=== PATIENT | male | born 1945 | race Caucasian/White ===

== ENCOUNTER 2018-05-03 06:57 | Emergency (ER) | payer MEDICARE, OTHER, SELFPAY ==
[2018-05-03 06:58] VITALS: BP 182/92; PULSE 74; RESP 15; TEMP 37.1; O2SAT 94; BMI 39.9
[2018-05-03 07:26] VITALS: O2SAT 95
--- NOTE | 2018-05-03 07:33 | RAD_ITS ---
STUDY: X-RAY CHEST REASON FOR EXAM: Male, 73 years old. Cough with wheezing and shortness of breath TECHNIQUE: PA and lateral views of the chest. COMPARISON: Prior comparison studies are not available for review at this time. FINDINGS: Lungs are mildly hyperexpanded with coarsened interstitial lung markings but no airspace disease. There is blunting of bilateral costophrenic angles. Normal size heart. Sternal wires and mediastinal surgical clips compatible with prior CABG. Normal mediastinum and polo. Normal visualized pulmonary arteries. There is atherosclerotic calcification of the aortic arch with tortuosity. There is demineralization of the osseous structures. Normal visualized ribs, clavicles, and shoulders. There is no demonstrated abnormality of the visualized soft tissue structures of the upper abdomen. RAD/Chest PA and Lateral IMPRESSION: 1. No airspace consolidation. 2. Trace bilateral pleural effusions versus chronic pleural fibrosis. 3. CABG. Electronically Signed: Levar Keller MD at 7:57 EST , Service support ,
--- NOTE | 2018-05-03 08:03 | ED.DCSUM_ITS ---
- ER Visit Summary Date of Service: 05/03/18 Chief Complaint: Cough and cold symptoms History of Present Illness: The patient is a 73 M who is had progressive cough for the past 6 days. No fever or chills. No nausea or vomiting. He is bringing up yellow sputum and is getting muscle soreness from his cough. Past history significant for CHF, hypertension, high cholesterol, Parkinson's. Physical Examination: Vital signs significant for blood pressure of 182/92, otherwise unremarkable. Pulse ox is 94% on room air. Patient sitting upright in bed no acute distress. Head neck examination reveals TMs to be clear. Moist mucous membranes noted. Heart is regular rate and rhythm. Lungs sounds clear. Abdomen is soft nontender. Test Results: Two-view chest x-ray read by radiology as a trace effusion with no airspace consolidation. On my review there is haziness along the left heart border with concern for early infiltrate. Emergency Department Course and Treatment: Test results discussed with patient and at bedside. He will be treated with Zithromax along with Tessalon Perles to control his cough. Treatment Plan: [] Disposition: Discharge Impression: Bronchitis This note was generated with [employer] dictation software. It may contain incorrect words, spelling, and punctuation that were not noted in review of the chart prior to signing ED Disposition - Plan for ED Patient: Chief Complaint: Cough Referrals: Kobi Adair MD [Primary Care Provider] -
--- NOTE | 2018-05-03 08:03 | ED.DEP ---
ED Disposition - Plan for ED Patient: Disposition: Home or Assisted Living Chief Complaint: Cough Instructions: Acute Bronchitis Prescriptions: Azithromycin [Zithromax] 250 mg PO DAILY #4 tablet Benzonatate [Tessalon Perle] 200 mg PO TID PRN PRN #20 capsule PRN Reason: Cough Referrals: Kobi Adair MD [Primary Care Provider] - 1 Week
[2018-05-03] MEDS: Azithromycin 250 MG Tablet 500 MG PO (08:18)
== END 2018-05-03 08:20 | disposition home or self-care (01) ==
PROVIDERS: Emergency Provider Emergency Medicine; Family Provider Family Medicine; PCP Family Medicine
DX: J40 Bronchitis, not specified as acute or chronic (principal); I11.0 Hypertensive heart disease with heart failure; I50.9 Heart failure, unspecified; G20 Parkinson's disease; E03.9 Hypothyroidism, unspecified; E78.00 Pure hypercholesterolemia, unspecified; M54.9 Dorsalgia, unspecified; K21.9 Gastro-esophageal reflux disease without esophagitis; F32.9 Major depressive disorder, single episode, unspecified; Z79.84 Long term (current) use of oral hypoglycemic drugs; Z79.02 Long term (current) use of antithrombotics/antiplatelets; Z79.82 Long term (current) use of aspirin; Z79.899 Other long term (current) drug therapy; Z87.891 Personal history of nicotine dependence
CPT/HCPCS: 71046; 99283

== ENCOUNTER 2019-03-27 11:21 | Emergency (ER) | payer MEDICARE, OTHER, SELFPAY ==
[2019-03-27 11:23] VITALS: BP 149/73; PULSE 64; RESP 18; TEMP 36.5; O2SAT 96; BMI 41.3
--- NOTE | 2019-03-27 12:12 | RAD_ITS ---
STUDY: X-RAY - RIGHT KNEE REASON FOR EXAM: Male, 74 years old. PAIN S/P INJURY; -- PATIENT STATES UNABLE TO BEAR ANY WEIGHT TECHNIQUE: 4 view(s) of the knee. COMPARISON: None. FINDINGS: Normal visualized distal femur. Normal visualized proximal tibia and fibula. Normal proximal tibiofibular articulation. Normal medial femorotibial compartment. Normal lateral femorotibial compartment. Normal patellofemoral articulation. There is a soft tissue prominence in the suprapatellar region suggesting a small volume joint effusion. There are surgical clips of the medial soft tissues. RAD/Knee 4 or More Views IMPRESSION: Small joint effusion without demonstrated fracture. Electronically Signed: Levar Keller MD (Brooks) at 12:38 EST , Service support ,
--- NOTE | 2019-03-27 12:49 | ED.VISSUMM ---
- ER Visit Summary Date of Service: 03/27/19 Chief Complaint: Right knee pain History of Present Illness: The patient is a 74 M who presents with right knee pain that began yesterday. Patient states his knee gave out and he fell. Patient states his pain is worse with movement and with weightbearing. Patient admits to some tingling in his right thigh but denies any paresthesias or weakness distally. Patient describes his pain as sharp. Patient denies any head injury or loss of consciousness with the fall. Physical Examination: Vital signs are stable. Patient is afebrile. Patient in no acute distress. Musculoskeletal exam reveals tenderness over the medial joint line of the right knee. There is no effusion. There is no bony crepitance or step-off. Range of motion was limited in all motions of the right knee secondary to pain. Extensor mechanism is intact. Strength is 5/5 bilaterally upper and lower extremities. There are no sensory deficits noted. Pedal pulses are equal bilaterally. Test Results: X-rays of the right knee were obtained. There is a small joint effusion without fracture. These were interpreted by the radiologist and reviewed by myself. Emergency Department Course and Treatment: Patient was advised of his x-ray findings. Patient was instructed to ice and elevate the right knee. Patient was given a knee immobilizer. Patient was instructed to follow-up with his primary care physician in 5 to 7 days. Patient understood and was agreeable with the plan. All questions were answered. Disposition: Discharge home Impression: Right knee pain This note was generated with airpim dictation software. It may contain incorrect words, spelling, and punctuation that were not noted in review of the chart prior to signing ED Disposition - Plan for ED Patient: Disposition: Home or Assisted Living Diagnosis: Right knee pain Instructions: KNEE PAIN, Uncertain Cause Referrals: Kobi Adair MD [Primary Care Provider] - 5-7 Days
== END 2019-03-27 13:38 | disposition home or self-care (01) ==
PROVIDERS: Emergency Provider Emergency Medicine; Family Provider Family Medicine; PCP Family Medicine
DX: M25.561 Pain in right knee (principal); M25.461 Effusion, right knee; R20.2 Paresthesia of skin; Z79.84 Long term (current) use of oral hypoglycemic drugs; Z79.02 Long term (current) use of antithrombotics/antiplatelets; Z79.82 Long term (current) use of aspirin; Z79.899 Other long term (current) drug therapy
CPT/HCPCS: 73564; 99284

== ENCOUNTER 2021-02-18 19:13 | Inpatient (IN) | payer OTHER, SELFPAY ==
[2021-02-18] VITALS (11 sets, daily range): BP systolic 108–125; BP diastolic 66–76; PULSE 120–123; RESP 18–33; TEMP 35.6–36.6; O2SAT 92–97; BMI 39.1; BMI 37.7
--- NOTE | 2021-02-18 19:24 | RAD_ITS ---
STUDY: X-RAY CHEST REASON FOR EXAM: Male, 76 years old. chest pain TECHNIQUE: AP COMPARISON: None. FINDINGS: Sternal wires and mediastinal surgical clips compatible with prior CABG. EKG leads project over the chest. Left more than right patchy groundglass and interstitial opacities are new since the prior study. There is no demonstrated pleural abnormality. There is mild cardiac enlargement. Normal mediastinum and polo. Mild vascular congestion. There is atherosclerotic calcification of the aortic arch with tortuosity. No acute bony process. There is no demonstrated abnormality of the visualized soft tissue structures of the upper abdomen. RAD/Chest 1 View (Portable) IMPRESSION: Left more than right interstitial and groundglass opacities with vascular congestion suggesting pulmonary edema although atypical/viral pneumonia could have a similar appearance. Electronically Signed: Levar Keller MD (Brooks) at 20:04 EST , Service support ,
--- NOTE | 2021-02-18 19:24 | EKG12_ITS ---
Test Reason : SOB Blood Pressure : / mmHG Vent. Rate : 121 BPM Atrial Rate : 121 BPM P-R Int : 132 ms QRS Dur : 088 ms QT Int : 326 ms P-R-T Axes : -24 -08 067 degrees QTc Int : 462 ms Sinus tachycardia Inferior infarct , age undetermined Abnormal ECG Confirmed by DAVIE ELAM, ESTUARDO ([id number]), development editor AASHISH SILVA ([id number]) on 02/20/2021 11:01:44 AM Referred By: MAXI Confirmed By:ESTUARDO BRODERICK MD
--- NOTE | 2021-02-18 19:26 | ED.VIS.DYS ---
HPI History of Present Illness Chief Complaint: Shortness of Breath Informant: patient and spouse/S.O. Onset/Context/Timing Onset: Days Context: gradual Timing: Continuous Quality: Positive for Dyspnea on exertion Current Severity: Moderate Maximum Severity: Moderate Worsened by: Exertion Relieved by: Nothing Associated Symptoms cough, fever and chills Chest Pain: Positive for None Narrative Narrative: 76-year-old male extensive past medical history of CHF, hypertension, Parkinson's disease, diabetes, prior PR, quadruple bypass with stents on Plavix and history of thyroid cancer. Both he and his are vaccinated for Covid in June of this year. He has been short of breath for at least 10 days progressively worsening in the last several days. [facility] he started him on Levaquin and prednisone the last several days. He was diagnosed with Covid around 7 days ago and has had symptoms for about 10 days. He denies any hemoptysis or leg swelling. PE Risk Factors: Negative for Cancer, OCP + Smoking + > 35, Prior DVT or PE, Recent immobilization, Recent surgery and Recent travel Prior similar symptoms: No Recent Illness/Hospitalization: No PFSH PFSH Medical History (Updated 02/18/21 @ 20:[address] Sathish Smith MD) Allergic rhinitis BPH (benign prostatic hyperplasia) Chronic diastolic heart failure Coronary artery disease Diabetes Essential hypertension Hypertensive heart disease with acute diastolic congestive heart failure Insomnia Mixed hyperlipidemia ANABELL (obstructive sleep apnea) Proteinuria Restless leg syndrome Tubular adenoma of colon Vitamin D deficiency Home Medications aspirin 81 mg PO DAILY 03/10/13 [History Last Taken 05/02/18] atorvastatin 40 mg PO QHS 03/10/13 [History Last Taken 05/02/18] carbidopa-levodopa [Sinemet CR] 1 ea PO QHS 03/10/13 [History Last Taken 05/02/18] clopidogrel 75 mg PO DAILY 03/10/13 [History Last Taken 05/02/18] isosorbide mononitrate 30 mg PO DAILY 03/10/13 [History Last Taken 05/02/18] levothyroxine [Levoxyl] 200 mcg PO DAILY 03/10/13 [History Last Taken 05/02/18] losartan 100 mg PO DAILY 03/10/13 [History Last Taken 05/02/18] metformin 1,000 mg PO BIDCM 03/10/13 [History Last Taken 05/02/18] metoprolol tartrate 50 mg PO DAILY 03/10/13 [History Last Taken 05/02/18] nitroglycerin 0.4 mg SUBLINGUAL Q5M PRN 03/10/13 [History Last Taken 05/02/18] potassium chloride 10 meq PO DAILY 03/10/13 [History Last Taken 05/02/18] sertraline 50 mg PO DAILY 04/14/15 [History Last Taken 05/02/18] sitagliptin [Januvia] 100 mg PO DAILY 04/14/15 [History Last Taken 05/02/18] zolpidem 5 mg PO QHS PRN PRN 04/14/15 [History Last Taken 05/02/18] loratadine [Claritin] 10 mg PO DAILY 07/06/15 [History Last Taken 05/02/18] tamsulosin 0.8 mg PO QHS 07/06/15 [History Last Taken 05/02/18] amlodipine 5 mg PO BID 05/03/18 [History Last Taken 05/02/18] benzonatate 200 mg PO TID PRN PRN #20 capsule 05/03/18 [Rx Last Taken Unknown] famotidine 10 mg PO BID 02/18/21 [History Last Taken Unknown] furosemide 20 mg PO BID 02/18/21 [History Last Taken Unknown] glipizide 10 mg PO BID 02/18/21 [History Last Taken Unknown] insulin glargine 40 unit SUBCUT DAILY 02/18/21 [History Last Taken Unknown] levofloxacin 500 mg PO DAILY 02/18/21 [History Last Taken Unknown] magnesium oxide 420 mg PO DAILY 02/18/21 [History Last Taken Unknown] multivitamin with iron-mineral [Unicomplex-M] 1 tab PO DAILY 02/18/21 [History Last Taken Unknown] prednisone 50 mg PO DAILY 02/18/21 [History Last Taken Unknown] semaglutide [Ozempic] 0.5 mg SUBCUT QWEEK 02/18/21 [History Last Taken Unknown] trospium 20 mg PO BID 02/18/21 [History Last Taken Unknown] Allergy/AdvReac Type Severity Reaction Status Date / Time albuterol AdvReac Mild thrush Verified 02/18/21 19:14 ANESESTHIA Allergy Severe Other Uncoded 02/18/21 19:14 Surgical History (Updated 02/18/21 @ 19:44 by Angeles Howe) Hx of mitral valve repair S/P CABG x 4 S/P coronary artery stent placement Social History Smoking Status: Former smoker ROS ROS ED ROS Narrative Fever, chills, cough, shortness of breath. Nausea. Review of Systems ROS Unobtainable: Denies due to encephalopathy Constitutional Constitutional ED: Reports chills and fever(s) Eyes Eyes: Denies change in vision ENT ENT ED: Denies ear pain or sore throat Cardiovascular Cardiovascular: Reports palpitations and racing heartbeat; Denies chest pain Respiratory/Chest Respiratory/Chest: Reports cough and dyspnea Gastrointestinal Gastrointestinal: Reports nausea; Denies abdominal pain, diarrhea or vomiting Genitourinary Genitourinary ED: Denies dysuria Musculoskeletal Musculoskeletal: Reports myalgias Integumentary Denies rash Neurologic Neurologic: Denies headache(s) Psychiatric Psychiatric: Denies depression Endocrine Endocrinology: Denies polyuria Hematologic/Lymphatic Hematologic/Lymphatic: Denies easy bruising Allergic/Immunologic Allergic/Immunologic ED: Denies urticaria EXAM Physical Exam Narrative Exam Narrative: 76-year-old male vital signs tachycardic at 123 on the monitor. Pulse ox 94% on oxygen nonrebreather mask he was 76% hypoxic at home on room air he is afebrile. Patient appears ill. HEENT exam unremarkable. Neck nontender no JVD. No lymphadenopathy. Lungs clear to auscultation bilaterally. Heart tachycardia rate about 130.. Abdomen soft nontender normal bowel sounds no peritoneal signs. Patient moving all 4 extremities. Calves are nontender without edema. Neurologically is awake and alert with no focal motor deficits. He is answering questions and following commands. Const Vital Signs: 02/18/21 19:15 02/18/21 19:28 02/18/21 19:38 Temperature 97.7 F L Temperature Source Temporal Pulse Rate 123 H 122 H Respiratory Rate 30 H 33 H Respiratory Effort Short of Breath Respiratory Pattern Tachypnea Blood Pressure 109/72 112/70 Blood Pressure Mean 84 84 Pulse Ox 94 95 Oxygen Delivery Method Non-Rebreather Non-Rebreather Non-Rebreather Oxygen Flow Rate (L/min) 15 15 Fraction of Inspired Oxygen (FIO2) 02/18/21 19:40 02/18/21 20:13 02/18/21 20:21 Temperature 97.9 F Temperature Source Oral Pulse Rate 120 H 120 H Respiratory Rate 31 H 32 H Respiratory Effort Respiratory Pattern Blood Pressure 113/66 113/66 Blood Pressure Mean 81 81 Pulse Ox 96 97 95 Oxygen Delivery Method Non-Rebreather Nasal Cannula Nasal Cannula Oxygen Flow Rate (L/min) Fraction of Inspired Oxygen (FIO2) 100 Positive well nourished and well developed; Negative for obese, cachectic or contractures General Appearance ED: well developed; Negative for cachectic, contractures or NAD Nutritional Appearance: Negative for cachectic or obese HEENT Reports moist mucous membranes Negative for atraumatic or trauma Eyes PERRL and EOMs intact bilaterally Neck no lymphadenopathy, supple, no meningeal signs and no JVD General: Negative for tenderness Resp No normal respiratory effort and clear to auscultation bilaterally Resp Narrative: Labored breathing Auscultation: Negative for rales, rhonchi or wheezes Cardio regular rhythm, S1 normal heart sound, S2 normal heart sound and no murmurs; Negative for regular rate Cardio Narrative: Tach rate of 130. GI non-tender, non-distended and no masses Auscultation: normoactive bowel sounds Palpation: soft; Negative for tender, guarding or rebound tenderness present Back/Spine no CVA tenderness and normal to inspection General Back: Negative for CVA tenderness or tenderness Extremity normal to inspection General Extremety ED: Negative for edema or tenderness General Extremity: Negative for edema Neuro oriented x3 Sensorium / Orientation: alert, oriented to person, oriented to place and oriented to time; Negative for orientation impaired, confused, lethargic or stuporous Motor Exam: strength 5/5 throughout Skin no wounds General Skin Exam: Negative for jaundice Lesions: no lesions Rashes: no rashes MDM MDM MDM Narrative Medical decision making narrative: 76-year-old male vaccinated but is Covid positive had had symptoms for last 10 days. [facility] the last several days. Increasing respiratory distress with increasing hypoxia. He was not on home O2. He also is either new onset or has recurrent A. fib RVR. He has substantial cardiac history. Repeat exam patient is resting comfortably and improved on oxygen. Current diagnosis is consistent with CHF. We did do a bladder scan due to his acute kidney injury and it was only 86 so he is not in urinary retention. Patient be treated with IV Lasix. I have already discussed with the patient, his and the hospitalist about admission. Lab Data Attestation: I reviewed the patient's lab results. Lab results narrative: CBC unremarkable white count of 10. Hemoglobin of 14.1. Electrolytes show a gap of 14 BUN of 50 creatinine 2.8 glucose 314. Liver enzymes unremarkable. Troponin 65. His BUN and creatinine are significantly changed but the most recent one we have are from 5 years ago. Labs: Laboratory Results - last 24 hr 02/18/21 02/18/21 02/18/21 18:55 18:55 19:25 WBC 10.5 RBC 4.68 Hgb 14.1 Hct 42.3 MCV 90.4 MCH 30.1 MCHC 33.3 RDW Std Deviation 43.9 RDW Coeff of Luther 13.2 Plt Count 214 MPV 10.3 Immature Gran % (Auto) 1.300 H Neut % (Auto) 90.8 H Lymph % (Auto) 4.1 L Crawford % (Auto) 3.6 Eos % (Auto) 0.0 Baso % (Auto) 0.2 Absolute Neuts (auto) 9.5 H Absolute Lymphs (auto) 0.43 L Nucleated RBC % 0 Differential Comment SCANNED PT 14.3 INR 1.2 D-Dimer Quant (PE/DVT) 1.80 H* Sodium 133 L Potassium 3.9 Chloride 99 Carbon Dioxide 20.0 L Anion Gap 14 BUN 50 H Creatinine 2.80 H Estim Creat Clear Calc 20.25 Est GFR (MDRD) Af Amer 29 L Est GFR (MDRD) Non-Af 24 L BUN/Creatinine Ratio 17.9 Glucose 314 H Calcium 8.9 Total Bilirubin 1.00 AST 50 H ALT 32 Alkaline Phosphatase 99 Troponin I High Sens 65 Total Protein 7.4 Albumin 2.6 L Globulin 4.8 H Albumin/Globulin Ratio 0.5 L Radiography Chest X-Ray - ED: 1 View, Read by ED Physician, Heart, Mediastinum, Bony Structures, No Acute Disease, Chronic Changes and CHF Diagnostic Testing: Clinical Impression(s) from Imaging Studies Chest X-Ray 02/18/21 19:24 IMPRESSION: Left more than right interstitial and groundglass opacities with vascular congestion suggesting pulmonary edema although atypical/viral pneumonia could have a similar appearance. Electronically Signed: Levar Keller MD ([place]) at 20:04 EST , Service support , Single view portable chest x-ray interpreted by myself the radiologist looks more like CHF. No obvious pneumonia and this is not classic for Covid pneumonitis. EKG Initial EKG: Attestation: I personally reviewed and interpreted this EKG as follows: Interpretation: No Acute Injury Pattern and Sinus Tachycardia Comments: Sinus tachycardia rate of 121 no acute signs of PR or ischemia. Unchanged from prior EKG from 5 years ago. Prior EKG tracings: available for review Prior: Unchanged Discharge Plan Triage Chief Complaint: Shortness of Breath ED Provider: Sathish Smith Dx/Rx/DC Orders Clinical Impression: CHF (congestive heart failure), Hypoxia, COVID-19, Acute kidney injury Prescriptions: No Action losartan 50 MG tablet 100 mg PO DAILY RF: 0 atorvastatin 40 MG tablet 40 mg PO QHS RF: 0 carbidopa-levodopa [Sinemet CR] 1 EACH tablet extended release 1 ea PO QHS RF: 0 isosorbide mononitrate 30 MG tablet 30 mg PO DAILY RF: 0 clopidogrel 75 MG tablet 75 mg PO DAILY RF: 0 metformin 1,000 MG tablet 1,000 mg PO BIDCM RF: 0 metoprolol tartrate 50 MG tablet 50 mg PO DAILY RF: 0 nitroglycerin 0.4 MG tablet 0.4 mg sublingual Q5M PRN (Reason: Chest Pain) RF: 0 aspirin 81 MG tablet,chewable 81 mg PO DAILY RF: 0 levothyroxine [Levoxyl] 200 MCG tablet 200 mcg PO DAILY RF: 0 potassium chloride 10 MEQ tablet 10 meq PO DAILY RF: 0 zolpidem 5 MG tablet 5 mg PO QHS PRN PRN (Reason: Insomnia) RF: 0 sertraline 50 MG tablet 50 mg PO DAILY RF: 0 sitagliptin [Januvia] 100 MG tablet 100 mg PO DAILY RF: 0 tamsulosin 0.4 MG capsule 0.8 mg PO QHS RF: 0 loratadine [Allergy Relief (loratadine)] 10 MG tablet 10 mg PO DAILY RF: 0 amlodipine 5 MG tablet 5 mg PO BID RF: 0 benzonatate 100 MG capsule 200 mg PO TID PRN PRN (Reason: Cough) Qty: 20 RF: 0 prednisone 50 mg tablet 50 mg PO DAILY RF: 0 levofloxacin 500 mg tablet 500 mg PO DAILY RF: 0 Ozempic 0.25 mg or 0.5 mg(2 mg/1.5 mL) Pen Injector 0.5 mg SUBCUT QWEEK RF: 0 famotidine 10 mg Tablet 10 mg PO BID RF: 0 glipizide 10 mg Tablet 10 mg PO BID RF: 0 furosemide 20 mg tablet 20 mg PO BID RF: 0 Unicomplex-M Tablet 1 tab PO DAILY RF: 0 trospium 20 mg Tablet 20 mg PO BID RF: 0 insulin glargine 100 unit/mL Cartridge 40 unit SUBCUT DAILY RF: 0 magnesium oxide 400 MG tablet 420 mg PO DAILY RF: 0 Primary Care Provider: Kobi Adair Referrals: Kobi Adair MD [Primary Care Provider] -
[2021-02-18] MEDS: 0.9% Normal Saline 1,000 ML 999 ML IV (19:30)
[2021-02-18] MEDS: dexAMETHasone 10 MG/ML Vial IV (19:48)
[2021-02-18 20:13] LABS: Absolute Lymphocyte Count 0.43 X10^3/uL (0.83-4.51); Absolute Neutrophil Count 9.5 X10^3/uL (2.0-7.7); Basophil# 0.02 X10^3/uL; Basophil% 0.2 % (0-1); Hematocrit 42.3 % (40-54); Hemoglobin 14.1 g/dL (13.0-16.5); Lymphocyte # 0.43 X10^3/ul (0.83-4.51); Lymphocyte % 4.1 % (19-41); Mean Corp Hgb Conc 33.3 g/dL (32-36); Mean Corpuscular Hgb 30.1 pg (27.0-32.0); Mean Corpuscular Volume 90.4 fL (80-94); Mean Platelet Vol. 10.3 fl (6.2-12.0); Monocyte# 0.38 X10^3/uL; Monocyte% 3.6 % (0-10); NRBC Flagged by Analyzer 0 % (0-5); Neutrophil # 9.54 X10^3/uL (2.7-7.7); Neutrophil % 90.8 % (47-70); POSITIVE DIFFERENTIAL YES; Platelet Count 214 K/mm3 (150-450); RBC Distribution Width CV 13.2 % (11.6-14.6); RBC Distribution Width SD 43.9 fl (35.1-43.9); Red Blood Count 4.68 M/mm3 (4.6-6.2); White Blood Count 10.5 K/mm3 (4.4-11.0)
[2021-02-18 20:18] LABS: Differential Indicated SCAN CRITERIA MET
[2021-02-18 20:19] LABS: ALB/GLOB Ratio 0.5 RATIO (0.9-2.4); AST(SGOT) 50 U/L (15-37); Alanine Aminotransfer ALT/SGPT 32 U/L (16-61); Albumin, Serum 2.6 g/dL (3.2-5.0); Alkaline Phosphatase 99 U/L (45-117); Anion Gap 14 (5-15); BUN 50 mg/dL (7-18); BUN/Creat Ratio 17.9 RATIO (10-20); Calcium,Total 8.9 mg/dL (8.5-10.1); Chloride 99 mmol/L (98-107); EST Glomerular Filtration Rate 24 mL/min (>60); Est Glom Filt Rate - Afr Amer 29 mL/min (>60); Estimated Creatinine Clearance 20.25 ml/min; Globulin 4.8 g/dL (2.2-4.2); Glucose 314 mg/dL (74-106); Potassium 3.9 mmol/L (3.5-5.1); Protein, Total 7.4 g/dL (6.4-8.2); Sodium Level 133 mmol/L (136-145); Troponin-I HS 65 pg/mL (3.0-78.0)
[2021-02-18 20:23] LABS: International Normalized Ratio 1.2; Prothrombin Time (Protime)PT. 14.3 SECONDS (11.7-14.9)
[2021-02-18 20:48] LABS: Differential Comment SCANNED
--- NOTE | 2021-02-18 20:54 | HP.PCM.HOS_ITS ---
[facility] - General General Date of Admission: 02/18/21 HPI Narrative KIMBERLY DUGAN, is a 76 M with a significant history of heart failure preserved ejection fraction; restless leg syndrome; BPH who presents to the emergency department with 10-day history of progressively worsening shortness of breath. Patient was diagnosed with Covid about 10 days ago and was started on Levaquin and prednisone 50 mg daily. He reports a productive cough. He reports anorexia. He reports weakness and fatigue. He reports myalgia. Report of fever of temperature of about 100 Fahrenheit the day before presentation. He reports chills. He denies orthopnea proximal nocturnal dyspnea. At baseline he uses CPAP at home. When paramedics got to the patient's house patient's oxygen saturation was in the 70s. Patient was initially placed on nonrebreather mask at the emergency department and later on weaned to 4 L nasal cannula. [facility] Medical History Allergic rhinitis BPH (benign prostatic hyperplasia) Chronic diastolic heart failure Coronary artery disease Diabetes Essential hypertension Hypertensive heart disease with acute diastolic congestive heart failure Insomnia Mixed hyperlipidemia ANABELL (obstructive sleep apnea) Proteinuria Restless leg syndrome Tubular adenoma of colon Vitamin D deficiency Home Medications aspirin 81 mg PO DAILY 03/10/13 [History Last Taken 05/02/18] atorvastatin 40 mg PO QHS 03/10/13 [History Last Taken 05/02/18] carbidopa-levodopa [Sinemet CR] 1 ea PO QHS 03/10/13 [History Last Taken 05/02/18] clopidogrel 75 mg PO DAILY 03/10/13 [History Last Taken 05/02/18] isosorbide mononitrate 30 mg PO DAILY 03/10/13 [History Last Taken 05/02/18] levothyroxine [Levoxyl] 200 mcg PO DAILY 03/10/13 [History Last Taken 05/02/18] losartan 100 mg PO DAILY 03/10/13 [History Last Taken 05/02/18] metoprolol tartrate 50 mg PO DAILY 03/10/13 [History Last Taken 05/02/18] nitroglycerin 0.4 mg SUBLINGUAL Q5M PRN 03/10/13 [History Last Taken 05/02/18] potassium chloride 10 meq PO DAILY 03/10/13 [History Last Taken 05/02/18] sertraline 50 mg PO DAILY 04/14/15 [History Last Taken 05/02/18] sitagliptin [Januvia] 100 mg PO DAILY 04/14/15 [History Last Taken 05/02/18] loratadine [Claritin] 10 mg PO DAILY 07/06/15 [History Last Taken 05/02/18] tamsulosin 0.8 mg PO QHS 07/06/15 [History Last Taken 05/02/18] benzonatate 200 mg PO TID PRN PRN #20 capsule 05/03/18 [Rx Last Taken Unknown] famotidine 10 mg PO BID 02/18/21 [History Last Taken Unknown] furosemide 20 mg PO BID 02/18/21 [History Last Taken Unknown] glipizide 10 mg PO BID 02/18/21 [History Last Taken Unknown] insulin glargine 40 unit SUBCUT DAILY 02/18/21 [History Last Taken Unknown] levofloxacin 500 mg PO DAILY 02/18/21 [History Last Taken Unknown] magnesium oxide 420 mg PO DAILY 02/18/21 [History Last Taken Unknown] multivitamin with iron-mineral [Unicomplex-M] 1 tab PO DAILY 02/18/21 [History Last Taken Unknown] prednisone 50 mg PO DAILY 02/18/21 [History Last Taken Unknown] semaglutide [Ozempic] 0.5 mg SUBCUT QWEEK 02/18/21 [History Last Taken Unknown] trospium 20 mg PO BID 02/18/21 [History Last Taken Unknown] Allergy/AdvReac Type Severity Reaction Status Date / Time albuterol AdvReac Mild thrush Verified 02/18/21 19:14 ANESESTHIA Allergy Severe Other Uncoded 02/18/21 19:14 Family History Other Diabetes Heart disease Surgical History Hx of mitral valve repair S/P CABG x 4 S/P coronary artery stent placement Social History Smoking Status: Former smoker ROS ROS Narrative Constitutional: Reports fever, chills, and anorexia. Denies change in weight Eyes: Denies blurry vision, change in eye color, change in vision, discharge from eye(s), double vision, erythema, eye pain, loss of vision or other HEENT: Denies dysphagia, ear pain, epistaxis, headache(s), hearing loss, nasal congestion, nasal discharge, post nasal drip, sinus pressure, sore throat or other Cardiovascular: Denies chest pain or palpitations. Respiratory/Chest: Reports cough. Reports sputum production. Reports shortness of breath. Denies wheezes. Gastrointestinal: Denies abdominal pain, coffee ground emesis, constipation, diarrhea, dyspepsia, hematemesis, hematochezia, loose stools, melena, nausea, vomiting or other Genitourinary: Denies burning urination, difficulty urinating, dysuria, hematuria, nocturia, urinary frequency, urinary hesitancy, urinary incontinence, urinary urgency or other Musculoskeletal: Reports myalgia. Denies arthralgias, back pain, joint pain, joint stiffness, joint swelling, neck pain or other Neurologic: Denies abnormal gait, abnormal speech, confusion, disequilibrium, dizziness, focal weakness, headache(s), numbness, paresthesias, seizure-like activity, seizures, syncope, tingling, tremor(s) or other Psychiatric: Denies anxiety, depression, homicidal ideation, suicidal ideation or other Endocrinology: Denies change in body appearance, cold intolerance, excessive sweating, heat intolerance, polydipsia, polyuria or other Hematologic/Lymphatic: Denies anemia, easy bleeding, easy bruising, lymphadenopathy or other Integumentary: Denies rashes Allergic/Immunologic: Denies rhinitis, hives, eczema, asthma or other Vital Signs Vital Signs Vital Signs: 02/18/21 19:15 02/18/21 19:28 02/18/21 19:38 Temperature 97.7 F L Temperature Source Temporal Pulse Rate 123 H 122 H Respiratory Rate 30 H 33 H Respiratory Effort Short of Breath Respiratory Pattern Tachypnea Blood Pressure 109/72 112/70 Blood Pressure Mean 84 84 Pulse Ox 94 95 Oxygen Delivery Method Non-Rebreather Non-Rebreather Non-Rebreather Oxygen Flow Rate (L/min) 15 15 Fraction of Inspired Oxygen (FIO2) 02/18/21 19:40 02/18/21 20:13 02/18/21 20:21 Temperature 97.9 F Temperature Source Oral Pulse Rate 120 H 120 H Respiratory Rate 31 H 32 H Respiratory Effort Respiratory Pattern Blood Pressure 113/66 113/66 Blood Pressure Mean 81 81 Pulse Ox 96 97 95 Oxygen Delivery Method Non-Rebreather Nasal Cannula Nasal Cannula Oxygen Flow Rate (L/min) Fraction of Inspired Oxygen (FIO2) 100 Weight Weight: 110 kg Body Mass Index (BMI) 39.1 Physical Exam Narrative Physical exam: General: Well-nourished, well-developed. Head: Normocephalic, atraumatic, no tenderness Eyes: PERRLA, EOMI ENT, no trauma, moist mucous membranes, no rhinorrhea Neck: Nontender, full range of motion, no spinal tenderness, deformities, step- off CVS: Tachycardia. Regular rate and rhythm. S1-S2 present. No murmur, gallop or rub. Respiratory : clear to auscultation bilaterally, chest wall nontender, no wheezing Abdomen: Soft, nontender, nondistended, normal bowel sounds, no masses : Deferred Back: Nontender, no CVA tenderness, no midline spinal tenderness, deformities, step-offs Extremities: Nontender full range of motion, no trauma Skin: Normal color, no trauma, abrasions Neuro: Alert, oriented, cranial nerves II through XII grossly intact. Psychiatry: Normal mood. Normal affect. Not depressed. Not anxious. Results Lab / Micro Data Result Diagrams: 02/18/21 18:55 02/18/21 18:55 Labs: Laboratory Results - last 24 hr 02/18/21 18:55: WBC 10.5, RBC 4.68, Hgb 14.1, Hct 42.3, MCV 90.4, MCH 30.1, MCHC 33.3, RDW Std Deviation 43.9, RDW Coeff of Luther 13.2, Plt Count 214, MPV 10.3, Immature Gran % (Auto) 1.300 H, Neut % (Auto) 90.8 H, Lymph % (Auto) 4.1 L, [place] % (Auto) 3.6, Eos % (Auto) 0.0, Baso % (Auto) 0.2, Absolute Neuts (auto) 9.5 H, Absolute Lymphs (auto) 0.43 L, Nucleated RBC % 0, Differential Comment SCANNED 02/18/21 18:55: Sodium 133 L, Potassium 3.9, Chloride 99, Carbon Dioxide 20.0 L, Anion Gap 14, BUN 50 H, Creatinine 2.80 H, Estim Creat Clear Calc 20.25, Est GFR (MDRD) Af Amer 29 L, Est GFR (MDRD) Non-Af 24 L, BUN/Creatinine Ratio 17.9, Glucose 314 H, Calcium 8.9, Total Bilirubin 1.00, AST 50 H, ALT 32, Alkaline Phosphatase 99, Troponin I High Sens 65, Total Protein 7.4, Albumin 2.6 L, Globulin 4.8 H, Albumin/Globulin Ratio 0.5 L 02/18/21 19:25: PT 14.3, INR 1.2, D-Dimer Quant (PE/DVT) 1.80 H* Radiology Impression Chest X-Ray 02/18/21 19:24 IMPRESSION: Left more than right interstitial and groundglass opacities with vascular congestion suggesting pulmonary edema although atypical/viral pneumonia could have a similar appearance. Electronically Signed: Levar Keller MD (Brooks) at 20:04 EST , Service support , Assessment & Plan Assessment/Plan (1) CHF (congestive heart failure): QUALIFIERS: Heart failure chronicity: acute on chronic Heart failure type: diastolic Qualified Code(s): I50.33 - Acute on chronic diastolic (congestive) heart failure (2) HTN (hypertension): QUALIFIERS: Hypertension type: primary hypertension Qualified Code(s): I10 - Essential (primary) hypertension (3) Obesity: QUALIFIERS: Body mass index: BMI 39.0-39.9 Obesity classification: adult class 2 (BMI 35 - 39.9) Obesity type: due to excess calories Serious obesity comorbidity presence: with serious comorbidity Amando lified Code(s): E66.01 - Morbid (severe) obesity due to excess calories; Z68.39 - Body mass index [BMI] 39.0-39.9, adult (4) COVID-19: PLAN: Acute Exacerbation of heart failure with preserved ejection fraction Place on monitored bed at the progressive care unit Weight on admission to the floor; and then daily Strict I&O's BNP mildly elevated at 159.8. CXR independently reviewed showed bilateral opacity with engorgement of pulmonary vessels and cephalization cephalization EKG independently reviewed confirms sinus tach with rates in the 120s. Emergency department labs reviewed showed potassium of 3.9. Continue home potassium supplementation in the setting of escalating patient's Lasix. Lasix 40 mg IV push given at the emergency department. Lasix 40 mg twice daily ordered while inpatient. Patient reports that he sees cardiology in the [facility]. He does not remember the last time echocardiogram was done. Last echocardiogram on file in hospital system was on 04/28/2013. Echocardiogram at that time showed mild concentric left ventricular hypertrophy left ventricular static function was lower limits of normal. Estimated ejection fraction was 50%. There was no evidence of diastolic dysfunction at that time. Mild regional wall motion abnormality was noted. There was mild mitral valve insufficiency. There was mild diffuse aortic valve thickening. Mild tricuspid valve insufficiency was noted. Pulmonary artery study pressure was 27 mmHg. Echo ordered to evaluate LVEF and wall motion . Monitor electrolytes and renal function Trend blood pressure Fluid restriction of 1500 mls daily Cardiac and diabetic diet ordered. RADHA on CKD IIIa Creatinine on presentation was 2.80. BUN is 50. BUN over creatinine is 17.9. Likely intrinsic renal. Review of community records on 12/14/2020 his creatinine was 1.62 and on 2020 his creatinine was 1.70. Likely cardiorenal syndrome. Will give patient Lasix. Hold nephrotoxins. Home Cozaar on hold. Trend CMP. Diabetes mellitus Patient with hyperglycemia on presentation Home basal insulin continued. Glipizide continued. Accu-Chek with correction scale insulin ordered. Covid pneumonia Started on Levaquin at the emergency department. We will continue Levaquin. We will check a procalcitonin, should the question antigen and Legionella urine antigen. Of note procalcitonin could be elevated because of RADHA. If labs unremarkable consider discontinue Levaquin. Started on home prednisone 50 mg daily. Will change to Decadron. Patient is not candidate for remdesivir. BMI: 39.1. Complicates care. Lifestyle modification recommended. Hypertension Blood pressure is not within goal Home continued. Hold home losartan secondary to RADHA. Trend blood pressure and adjust blood pressure medications. Elevated D-dimer D-dimer is 1.80. Which is still elevated when age-adjusted. Unable to get chest CTA because of kidney function. Will start patient empirically on Lovenox renally adjusted. DVT prophylaxis Subcutaneous Lovenox as above. Charges/Coding Visit Charges Inpatient E&M: 56938 Init Hosp L3
[2021-02-18] MEDS: Furosemide 40 MG/4 ML Vial IV (21:19)
[2021-02-18 21:21] LABS: BNP,B-Type NATRIURETIC PEPTIDE 159.8 pg/mL (0-100)
--- NOTE | 2021-02-18 21:27 | NURSING ---
spoke with froy and told her room number for admission
--- NOTE | 2021-02-18 21:48 | ECHOD_ITS ---
Reason For Study: CHF Procedure This was a 2D Doppler, Color Flow transthoracic echocardiogram. Exam performed portable in patient room. The exam was abbreviated due to the COVID 19 protocol. Left Ventricle Normal LV size. Mild concentric left ventricular hypertrophy. Left ventricular systolic function is lower limits of normal. The estimated ejection fraction is 53 %. Stage 2 diastolic dysfunction. No regional wall motion abnormalities noted. Right Ventricle Normal RV size. Normal systolic function. Atria The left atrium is mildly enlarged. Normal right atrium. Mitral Valve There is mild mitral annular calcification. Trivial eccentric mitral valve insufficiency. Tricuspid Valve Normal tricuspid valve. Mild (1+) tricuspid valve insufficiency. Pulmonary artery systolic pressure is 28 mmHg. Aortic Valve Trisinus/trileaflet aortic valve. Pulmonic Valve Normal pulmonic valve. Great Vessels Normal aortic root. The pulmonary artery is normal size. Pericardium/Pleural No pericardial effusion. MMode/2D Measurements & Calculations LVIDd: 4.0 cm IVSd: 1.2 cm Ao root diam: 3.6 cm LVIDs: 3.7 cm LVPWd: 1.2 cm RVDd: 4.0 cm FS: 7.1 % LAV(MOD-bp): 76.8 ml LA A4 area: 24.5 cm2 LA dimension(2D): 4.9 cm LAV(MOD-bp) Indexed: 35.4 ml/m2 LAV(MOD-sp2): 80.1 ml LAV(MOD-sp4): 72.9 ml RA A4 area: 17.9 cm2 Doppler Measurements & Calculations MV E max yulia: 161.7 cm/sec MV V2 max: 179.0 cm/sec Ao V2 max: 110.7 cm/sec MV A max yulia: 96.7 cm/sec MV max P.8 mmHg Ao max P.9 mmHg MV E/A: 1.7 MV V2 mean: 92.1 cm/sec MV mean P.1 mmHg MV V2 VTI: 44.8 cm LV V1 max: 90.4 cm/sec TR max yulia: 244.8 cm/sec MV P1/2t-pr_phl: 100.3 msec LV V1 max P.3 mmHg TR max P.0 mmHg ECHO/Echo Complete Interpretation Summary Normal LV size. Left ventricular systolic function is lower limits of normal. The estimated ejection fraction is 53 %. Pulmonary artery systolic pressure is 28 mmHg. Stage 2 diastolic dysfunction. Ordering Physician: Janes Gramajo Referring Physician: NIKIA MENDOZA Performed By: Meg Figueredo, RDCS, RVT
--- NOTE | 2021-02-18 22:35 | CPS ---
Patient does not want to wear CPAP at this time. Is maintaining appropriate saturations on 6LNC. If problems occur (increased SOB/oxygen needs), patient is agreeable to try CPAP or possibly BiPAP at that time if indicated.
[2021-02-18] MEDS: Insulin Lispro 100 UNIT/ML INSULN.PEN SC (23:13)
[2021-02-18] MEDS: Tamsulosin HCl 0.4 MG Capsule 0.8 MG PO (23:14)
[2021-02-18] MEDS: Metoprolol Tartrate 25 MG Tablet 75 MG PO (23:14)
[2021-02-18] MEDS: CARBIDOPA/LEVODOPA CR 50/200 Tablet PO (23:19)
[2021-02-18 23:56] LABS: Bedside Glucose 338 mg/dL (70-110)
[2021-02-19] VITALS (19 sets, daily range): BP systolic 93–128; BP diastolic 68–90; PULSE 91–125; RESP 12–25; TEMP 36.1–36.7; O2SAT 90–96
--- NOTE | 2021-02-19 05:14 | PCS.PANDOC ---
PANDEMIC DOCUMENTATION INITIATED: Date: 11/21/2020 Time: 190
[2021-02-19] MEDS: Levothyroxine 100 MCG Tablet 200 MCG PO (06:01)
[2021-02-19] MEDS: levoFLOXacin 250 MG Tablet PO (06:01)
[2021-02-19] MEDS: Insulin Lispro 100 UNIT/ML INSULN.PEN SC ×4 (06:43→21:02)
[2021-02-19 07:00] LABS: Bedside Glucose 368 mg/dL (70-110)
[2021-02-19 07:26] LABS: Procalcitonin 0.68 ng/mL (0.00-0.09)
[2021-02-19 07:33] LABS: Absolute Lymphocyte Count 0.54 X10^3/uL (0.83-4.51); Absolute Neutrophil Count 7.3 X10^3/uL (2.0-7.7); Basophil# 0.02 X10^3/uL; Basophil% 0.2 % (0-1); Hematocrit 40.3 % (40-54); Hemoglobin 13.3 g/dL (13.0-16.5); Lymphocyte # 0.54 X10^3/ul (0.83-4.51); Lymphocyte % 6.6 % (19-41); Mean Corpuscular Hgb 30.2 pg (27.0-32.0); Mean Corpuscular Volume 91.4 fL (80-94); Mean Platelet Vol. 10.6 fl (6.2-12.0); Monocyte# 0.33 X10^3/uL; NRBC Flagged by Analyzer 0 % (0-5); Neutrophil # 7.25 X10^3/uL (2.7-7.7); Neutrophil % 88.2 % (47-70); POSITIVE DIFFERENTIAL YES; Platelet Count 221 K/mm3 (150-450); RBC Distribution Width CV 13.3 % (11.6-14.6); RBC Distribution Width SD 45.1 fl (35.1-43.9); Red Blood Count 4.41 M/mm3 (4.6-6.2); White Blood Count 8.2 K/mm3 (4.4-11.0)
[2021-02-19 07:41] LABS: Differential Indicated SCAN CRITERIA MET
[2021-02-19 07:53] LABS: ALB/GLOB Ratio 0.5 RATIO (0.9-2.4); AST(SGOT) 49 U/L (15-37); Alanine Aminotransfer ALT/SGPT 20 U/L (16-61); Albumin, Serum 2.3 g/dL (3.2-5.0); Alkaline Phosphatase 100 U/L (45-117); Anion Gap 11 (5-15); BUN 57 mg/dL (7-18); BUN/Creat Ratio 21.6 RATIO (10-20); Calcium,Total 8.7 mg/dL (8.5-10.1); Chloride 102 mmol/L (98-107); Creatinine, Serum 2.64 mg/dL (0.70-1.30); EST Glomerular Filtration Rate 25 mL/min (>60); Est Glom Filt Rate - Afr Amer 31 mL/min (>60); Estimated Creatinine Clearance 21.48 ml/min; Globulin 4.5 g/dL (2.2-4.2); Glucose 383 mg/dL (74-106); Potassium 3.8 mmol/L (3.5-5.1); Protein, Total 6.8 g/dL (6.4-8.2); Sodium Level 135 mmol/L (136-145)
[2021-02-19 09:18] LABS: Differential Comment SCANNED
--- NOTE | 2021-02-19 10:04 | PCM.PN.HOSP ---
Subjective Subjective Follow-up on acute hypoxic respiratory failure/acute COVID-19 pneumonia: Patient was seen and examined. He feels improved. He is currently on 10 L of oxygen at rest, increased to 40 L on exertion. He denies any dizziness or chest pain or palpitations. Objective Data Objective Data Vital Signs: Vital Signs Temp Pulse Resp BP Pulse Ox 97.6 F L 121 H 23 H 126/75 H 91 02/19/21 06:00 02/19/21 07:00 02/19/21 06:00 02/19/21 06:00 02/19/21 07:55 Oxygen Flow Rate (L/min) 8 Oxygen Delivery Method Nasal Cannula Weight: 107.2 kg Body Mass Index (BMI) 37.7 Intake & Output: Intake and Output for Last 24 Hours 02/17/21 02/18/21 02/19/21 23:59 23:59 23:59 Intake Total 1000 / 1200 300 / 300 Output Total 300 / 300 Balance 1000 / 1200 0 / 0 Lab / Micro Data Result Diagrams: 02/19/21 07:10 02/19/21 07:10 Labs: Laboratory Results - last 24 hr 02/18/21 18:55: WBC 10.5, RBC 4.68, Hgb 14.1, Hct 42.3, MCV 90.4, MCH 30.1, MCHC 33.3, RDW Std Deviation 43.9, RDW Coeff of Luther 13.2, Plt Count 214, MPV 10.3, Immature Gran % (Auto) 1.300 H, Neut % (Auto) 90.8 H, Lymph % (Auto) 4.1 L, [place] % (Auto) 3.6, Eos % (Auto) 0.0, Baso % (Auto) 0.2, Absolute Neuts (auto) 9.5 H, Absolute Lymphs (auto) 0.43 L, Nucleated RBC % 0, Differential Comment SCANNED 02/18/21 18:55: Sodium 133 L, Potassium 3.9, Chloride 99, Carbon Dioxide 20.0 L, Anion Gap 14, BUN 50 H, Creatinine 2.80 H, Estim Creat Clear Calc 20.25, Est GFR (MDRD) Af Amer 29 L, Est GFR (MDRD) Non-Af 24 L, BUN/Creatinine Ratio 17.9, Glucose 314 H, Calcium 8.9, Total Bilirubin 1.00, AST 50 H, ALT 32, Alkaline Phosphatase 99, Troponin I High Sens 65, Total Protein 7.4, Albumin 2.6 L, Globulin 4.8 H, Albumin/Globulin Ratio 0.5 L 02/18/21 18:55: B-Natriuretic Peptide 159.8 H 02/18/21 18:55: Procalcitonin 0.68 H 02/18/21 19:25: PT 14.3, INR 1.2, D-Dimer Quant (PE/DVT) 1.80 H* 02/18/21 23:12: POC Glucose 338 H 02/19/21 06:42: POC Glucose 368 H 02/19/21 07:10: WBC 8.2, RBC 4.41 L, Hgb 13.3, Hct 40.3, MCV 91.4, MCH 30.2, MCHC 33.0, RDW Std Deviation 45.1 H, RDW Coeff of Luther 13.3, Plt Count 221, MPV 10.6, Immature Gran % (Auto) 1.000 H, Neut % (Auto) 88.2 H, Lymph % (Auto) 6.6 L, [place] % (Auto) 4.0, Eos % (Auto) 0.0, Baso % (Auto) 0.2, Absolute Neuts (auto) 7.3, Absolute Lymphs (auto) 0.54 L, Nucleated RBC % 0, Differential Comment SCANNED 02/19/21 07:10: Sodium 135 L, Potassium 3.8, Chloride 102, Carbon Dioxide 22.0, Anion Gap 11, BUN 57 H, Creatinine 2.64 H, Estim Creat Clear Calc 21.48, Est GFR (MDRD) Af Amer 31 L, Est GFR (MDRD) Non-Af 25 L, BUN/Creatinine Ratio 21.6 H, Glucose 383 H, Calcium 8.7, Total Bilirubin 0.70, AST 49 H, ALT 20, Alkaline Phosphatase 100, Total Protein 6.8, Albumin 2.3 L, Globulin 4.5 H, Albumin/Globulin Ratio 0.5 L Micro: Microbiology 02/19/21 05:50 Urine, Clean Catch Streptococcus pneumoniae Antigen (M - Final 02/19/21 05:50 Urine, Clean Catch Legionella Antigen - Final Radiography Diagnostic Testing: Radiology Impression Chest X-Ray 02/18/21 19:24 IMPRESSION: Left more than right interstitial and groundglass opacities with vascular congestion suggesting pulmonary edema although atypical/viral pneumonia could have a similar appearance. Electronically Signed: Levar Keller MD (Brooks) at 20:04 EST , Service support , Physical Exam Narrative Physical exam: General: Alert, Oriented x3, Cooperative, in mild respiratory distress, on 10 L of oxygen HEENT: Atraumatic Oral: Moist Mucosa Neck: Supple Lungs: Diminished to auscultation, few crackles at the bases Cardiovascular: HS I+II, regular, no murmurs Abdomen: Bowel Sounds Present, Soft, Non Tender Extremities: No edema Assessment & Plan Assessment/Plan (1) CHF (congestive heart failure): QUALIFIERS: Heart failure type: diastolic Heart failure chronicity: acute on chronic Qualified Code(s): I50.33 - Acute on chronic diastolic (congestive) heart failure (2) HTN (hypertension): QUALIFIERS: Hypertension type: primary hypertension Qualified Code(s): I10 - Essential (primary) hypertension (3) Obesity: QUALIFIERS: Obesity type: due to excess calories Obesity classification: adult class 2 (BMI 35 - 39.9) Serious obesity comorbidity presence: with serious comorbidity Body mass index: BMI 39.0-39.9 Qualified Code(s): E66.01 - Morbid (severe) obesity due to excess calories; Z68.39 - Body mass index [BMI] 39.0-39.9, adult (4) COVID-19: PLAN: 1. Acute hypoxic respiratory failure secondary to acute COVID-19 pneumonia/acute exacerbation of heart failure with preserved EF Patient is currently on 10 to 14 L of oxygen Admitting chest x-ray shows right interstitial and groundglass opacities D-dimer is elevated, cannot get CTA of the chest, on empiric Lovenox, renal dose Recent acute COVID-19 pneumonia, diagnosed 10 days ago; will get results or will get testing here Continue on dexamethasone, not a candidate for remdesivir Continue to encourage use of incentive spirometer, wean off oxygen for more than 94% 2. Acute exacerbation of heart failure with preserved EF, last EF of 50% Patient follows with the [facility] system; will get records Continue on Lasix 40 mg q. 8, CHF protocol Continue on aspirin, Brilinta, statins, metoprolol 3. A. fib with RVR, heart rate elevated, continue home metoprolol 100 mg p.o. twice daily Continue on therapeutic Lovenox 4. RADHA on CKD IIIa, likely cardiorenal, baseline creatinine is 1.6-1.7 Continue Lasix, repeat blood work in a.m., hold losartan Nephrology consult if repeat blood work still shows persistent or worsening kidney failure 5. Type 2 Diabetes mellitus, blood sugars are uncontrolled, Continue on Lantus, glipizide, insulin sliding scale with blood glucose checks 6. Hypertension, controlled, continue on metoprolol Continue to hold losartan on account of RADHA 7. Rest of chronic medical conditions including Parkinson's disease, hypothyroidism remained stable Home meds reviewed Charges/Coding Visit Charges Inpatient E&M: 58105 Subs Hosp L3
[2021-02-19] MEDS: Tolterodine Tartrate 2 MG CAP.SA PO (10:21)
[2021-02-19] MEDS: glipiZIDE 10 MG Tablet PO ×2 (10:22→17:02)
[2021-02-19] MEDS: dexAMETHasone 4 MG Tablet 6 MG PO (10:22)
[2021-02-19] MEDS: Potassium Chloride Oral Tablet 10 MEQ PO (10:22)
[2021-02-19] MEDS: Sertraline 50 MG Tablet PO (10:23)
[2021-02-19] MEDS: Loratadine 10 MG Tablet PO (10:23)
[2021-02-19] MEDS: Famotidine 20 MG Tablet 10 MG PO ×2 (10:23→21:01)
[2021-02-19] MEDS: Aspirin 81 MG TAB.CHEW PO (10:23)
[2021-02-19] MEDS: Clopidogrel Bisulfate 75 MG Tablet PO (10:23)
[2021-02-19] MEDS: 0.9% Saline Lock 10 ML Syringe IV ×3 (10:24→21:01)
[2021-02-19] MEDS: Glucerna Shake 120 ML LIQUID PO (10:24)
[2021-02-19] MEDS: Enoxaparin 120 MG/0.8 ML Syringe 110 MG SC (10:25)
[2021-02-19] MEDS: Furosemide 40 MG/4 ML Vial IV ×3 (10:25→21:01)
[2021-02-19] MEDS: Metoprolol Tartrate 100 MG Tablet PO ×2 (10:33→21:00)
[2021-02-19 11:05] LABS: Bedside Glucose 327 mg/dL (70-110)
[2021-02-19 16:26] LABS: Probe Check PASS; Specimen Processing Control PASS
[2021-02-19 17:15] LABS: Bedside Glucose 321 mg/dL (70-110)
[2021-02-19] MEDS: CARBIDOPA/LEVODOPA CR 50/200 Tablet PO (21:00)
[2021-02-19] MEDS: Tamsulosin HCl 0.4 MG Capsule 0.8 MG PO (21:00)
[2021-02-19 22:06] LABS: Bedside Glucose 364 mg/dL (70-110)
[2021-02-20] VITALS (18 sets, daily range): BP systolic 102–136; BP diastolic 70–90; PULSE 88–130; RESP 12–28; TEMP 36.7–36.9; O2SAT 90–93
[2021-02-20] MEDS: Insulin Lispro 100 UNIT/ML INSULN.PEN SC ×4 (06:05→21:49)
[2021-02-20] MEDS: Levothyroxine 100 MCG Tablet 200 MCG PO (06:05)
[2021-02-20] MEDS: Furosemide 40 MG/4 ML Vial IV ×3 (06:05→21:49)
[2021-02-20] MEDS: levoFLOXacin 250 MG Tablet PO (06:05)
[2021-02-20] MEDS: 0.9% Saline Lock 10 ML Syringe IV ×2 (06:05→21:48)
[2021-02-20 06:25] LABS: Bedside Glucose 296 mg/dL (70-110)
[2021-02-20 08:58] LABS: Absolute Lymphocyte Count 0.78 X10^3/uL (0.83-4.51); Absolute Neutrophil Count 6.7 X10^3/uL (2.0-7.7); Basophil# 0.02 X10^3/uL; Basophil% 0.2 % (0-1); Hemoglobin 14.3 g/dL (13.0-16.5); Lymphocyte # 0.78 X10^3/ul (0.83-4.51); Lymphocyte % 9.5 % (19-41); Mean Corp Hgb Conc 33.3 g/dL (32-36); Mean Corpuscular Hgb 29.9 pg (27.0-32.0); Mean Platelet Vol. 10.6 fl (6.2-12.0); Monocyte# 0.57 X10^3/uL; NRBC Flagged by Analyzer 0 % (0-5); Neutrophil # 6.74 X10^3/uL (2.7-7.7); Neutrophil % 82.4 % (47-70); Platelet Count 261 K/mm3 (150-450); RBC Distribution Width CV 13.3 % (11.6-14.6); RBC Distribution Width SD 44.3 fl (35.1-43.9); Red Blood Count 4.78 M/mm3 (4.6-6.2); White Blood Count 8.2 K/mm3 (4.4-11.0)
[2021-02-20 09:24] LABS: Anion Gap 9 (5-15); BUN 67 mg/dL (7-18); Calcium,Total 9.2 mg/dL (8.5-10.1); Chloride 104 mmol/L (98-107); Creatinine, Serum 2.31 mg/dL (0.70-1.30); EST Glomerular Filtration Rate 29 mL/min (>60); Est Glom Filt Rate - Afr Amer 36 mL/min (>60); Estimated Creatinine Clearance 24.55 ml/min; Glucose 308 mg/dL (74-106); Potassium 3.9 mmol/L (3.5-5.1); Sodium Level 136 mmol/L (136-145)
[2021-02-20] MEDS: Metoprolol Tartrate 100 MG Tablet PO ×2 (11:04→21:49)
[2021-02-20] MEDS: Loratadine 10 MG Tablet PO (11:04)
[2021-02-20] MEDS: Sertraline 50 MG Tablet PO (11:04)
[2021-02-20] MEDS: Famotidine 20 MG Tablet 10 MG PO ×2 (11:04→21:48)
[2021-02-20] MEDS: Tolterodine Tartrate 2 MG CAP.SA PO (11:04)
[2021-02-20] MEDS: Aspirin 81 MG TAB.CHEW PO (11:05)
[2021-02-20] MEDS: dexAMETHasone 4 MG Tablet 6 MG PO (11:05)
[2021-02-20] MEDS: glipiZIDE 10 MG Tablet PO ×2 (11:05→17:24)
[2021-02-20] MEDS: Clopidogrel Bisulfate 75 MG Tablet PO (11:05)
[2021-02-20] MEDS: Potassium Chloride Oral Tablet 10 MEQ PO (11:05)
[2021-02-20] MEDS: Enoxaparin 120 MG/0.8 ML Syringe 110 MG SC (11:08)
[2021-02-20 11:26] LABS: Bedside Glucose 415 mg/dL (70-110)
--- NOTE | 2021-02-20 11:39 | CASEMGMT ---
STEPHON RUVALCABA assessment: Initial transition planning/care coordination assessment. STEPHON RUVALCABA introduced self and role at [facility], pt voices understanding and consents to assessment. Pt is currently on 8L nc and able to speak in full sentences in no distress. Pt is A/Ox4 and answers all questions appropriately. Pt states was vaccinated. Pt states took a COVID test at home and is unsure where results were sent but granddaughter assisted him. Pt states is currently asymptomatic and states no concerns getting resources at d/c. Care providers, pharmacy, and demographics verified. Presentation: Pt presents COVID +, with low sats and tachycardia Admitting dx: Acute exac CHF, COVID PCP: Karli Adair Specialists: [facility]: [facility] Prescription Benefit: [facility] D Living Will/HPOA: Pt has LW/HPOA and is aware that they are on file at [facility]. Pt's , Noemí Nava, is HPOA. LNOK: Noemí Nava, Living Arrangements: Pt lives with in 1 story home with ramp in and states no concerns at home. Pt is independent with ADL's. Transportation: Pt states drives self and states no transportation concerns. DME/HHC: Pt has the following DME: walk-in shower, rollator, scooter, and ramp. Pt states no need for any further DME but if qualifies for home oxygen at discharge then [facility]. Pt states has had HHC thru [place] in past and has been to [facility]. Pt states no concerns with going home at time of discharge. Pt is retired. Pt states does not smoke cigarettes or drink ETOH. Pt voices no further concerns/needs. CM to follow for home oxygen need and any further discharge planning/needs. Advised pt to ask for CM if any further questions/concerns/need arise, voices understanding. Pt Goal: Home Plan[place] STEPHON RUVALCABA
--- NOTE | 2021-02-20 14:06 | PCM.PN.HOSP ---
Subjective Subjective Patient seen and examined. He has no active complaints. He feels he is improving. Review of systems otherwise negative. He is on 8 L of oxygen by nasal cannula. He was tachycardic earlier today but that has improved. Objective Data Objective Data Vital Signs: Vital Signs Temp Pulse Resp BP Pulse Ox 98.4 F 88 22 H 109/73 91 02/20/21 03:53 02/20/21 11:04 02/20/21 04:20 02/20/21 03:53 02/20/21 08:22 Oxygen Flow Rate (L/min) 8 Oxygen Delivery Method High Flow Weight: 235 lb 0.204 oz Body Mass Index (BMI) 37.7 Intake & Output: Intake and Output for Last 24 Hours 02/18/21 02/19/21 02/20/21 23:59 23:59 23:59 Intake Total 1000 / 1200 1080 / 1080 Output Total 300 / 300 400 / 400 Balance 1000 / 1200 780 / 780 -400 / -400 Lab / Micro Data Result Diagrams: 02/20/21 08:50 02/20/21 08:50 Labs: Laboratory Results - last 24 hr 02/19/21 15:20: COVID-19 ([place]) Positive 02/19/21 17:01: POC Glucose 321 H 02/19/21 20:54: POC Glucose 364 H 02/20/21 06:03: POC Glucose 296 H 02/20/21 08:50: WBC 8.2, RBC 4.78, Hgb 14.3, Hct 43.0, MCV 90.0, MCH 29.9, MCHC 33.3, RDW Std Deviation 44.3 H, RDW Coeff of Luther 13.3, Plt Count 261, MPV 10.6, Immature Gran % (Auto) 0.900, Neut % (Auto) 82.4 H, Lymph % (Auto) 9.5 L, [place] % (Auto) 7.0, Eos % (Auto) 0.0, Baso % (Auto) 0.2, Absolute Neuts (auto) 6.7, Absolute Lymphs (auto) 0.78 L, Nucleated RBC % 0 02/20/21 08:50: Sodium 136, Potassium 3.9, Chloride 104, Carbon Dioxide 23.0, Anion Gap 9, BUN 67 H, Creatinine 2.31 H, Estim Creat Clear Calc 24.55, Est GFR (MDRD) Af Amer 36 L, Est GFR (MDRD) Non-Af 29 L, BUN/Creatinine Ratio 29.0 H, Glucose 308 H, Calcium 9.2 02/20/21 11:01: POC Glucose 415 H Micro: Microbiology 02/19/21 05:50 Urine, Clean Catch Streptococcus pneumoniae Antigen (M - Final 02/19/21 05:50 Urine, Clean Catch Legionella Antigen - Final Physical Exam Const alert, oriented x3 and no apparent distress Exam Limitations: no limitations HEENT head/scalp atraumatic and moist oral mucous membranes Head and Scalp: normocephalic Eyes PERRL, EOMs intact bilaterally and conjunctivae normal Neck no lymphadenopathy Resp Resp Narrative: Diminished breath sounds bibasilarly. No wheezes or crackles. On 8 L of oxygen. Cardio regular rate, regular rhythm, S1 normal heart sound, S2 normal heart sound and no murmurs GI normal to inspection, nondistended, normoactive bowel sounds, soft to palpation and non-tender Extremity normal to inspection, full ROM and no clubbing, cyanosis or edema Peripheral Pulses: Yes pulses 2+ throughout Skin no rashes or lesions noted Neuro oriented x3 and CN's II-XII intact bilaterally Sensorium / Orientation: awake and alert Psych affect normal Assessment & Plan Assessment/Plan (1) COVID-19: (2) Acute respiratory failure with hypoxia: PLAN: #Acute hypoxic respiratory failure due to COVID 19 pneumonia Now on 8 L of oxygen. On dexamethasone. Not a candidate for remdesivir. Will consult ID to see if he is a candidate for baricitinib. Symptoms started about 10 days ago. Titrate oxygen to maintain saturation above 90%. Breathing treatments bronchodilators. #Acute exacerbation of heart failure with preserved ejection fraction Known EF is 50%. On IV Lasix 40 mg every 8. On aspirin, Brilinta and statins as well as metoprolol #A. fib with RVR: On metoprolol 100 mg twice daily. Also on therapeutic Lovenox. Heart rate has been poorly controlled. #Elevated D-dimer D-dimer was 1.8 on admission. CTA could not be done on account of elevated creatinine. Patient currently on therapeutic Lovenox #RAHDA Creatinine is 2.31. Was 2.8 on admission. Baseline is around 0.8-1. Continue trending creatinine. If creatinine trends upwards with IV Lasix, will back down on IV Lasix. Reduce IV Lasix 40 mg twice daily. #Type 2 diabetes mellitus: On Lantus 50 units daily, glipizide. Insulin sliding scale. Accu-Cheks AC at bedtime. #Hypertension: On metoprolol and losartan. Losartan held on account of RADHA on CKD #Hypothyroidism: On Synthroid #Parkinson's disease:stable DVT prophylaxis: lovenox therapeutic dose. Charges/Coding Visit Charges Inpatient E&M: 14749 [facility] H[facility] L3
[2021-02-20 17:55] LABS: Bedside Glucose 288 mg/dL (70-110)
--- NOTE | 2021-02-20 19:57 | NURSING ---
Granddaughter Jitendra called in for update. Okay per pt to give updates to her.
[2021-02-20] MEDS: CARBIDOPA/LEVODOPA CR 50/200 Tablet PO (21:49)
[2021-02-20] MEDS: Tamsulosin HCl 0.4 MG Capsule 0.8 MG PO (21:49)
[2021-02-20 22:11] LABS: Bedside Glucose 216 mg/dL (70-110)
[2021-02-21] VITALS (18 sets, daily range): BP systolic 97–133; BP diastolic 68–101; PULSE 86–133; RESP 12–24; TEMP 35.6–36.9; O2SAT 90–97
[2021-02-21] MEDS: 0.9% Saline Lock 10 ML Syringe IV ×2 (05:46→21:22)
[2021-02-21] MEDS: Furosemide 40 MG/4 ML Vial IV ×2 (05:46→21:22)
[2021-02-21] MEDS: Levothyroxine 100 MCG Tablet 200 MCG PO (05:46)
[2021-02-21] MEDS: levoFLOXacin 250 MG Tablet PO (05:53)
[2021-02-21 06:40] LABS: Bedside Glucose 104 mg/dL (70-110)
[2021-02-21 07:17] LABS: Absolute Neutrophil Count 5.7 X10^3/uL (2.0-7.7); Basophil# 0.02 X10^3/uL; Basophil% 0.3 % (0-1); Eosinophil# 0.03 X10^3/uL; Eosinophils% 0.4 % (0-5); Hemoglobin 14.6 g/dL (13.0-16.5); Lymphocyte % 15.7 % (19-41); Mean Corpuscular Hgb 30.7 pg (27.0-32.0); Mean Corpuscular Volume 90.3 fL (80-94); Mean Platelet Vol. 10.4 fl (6.2-12.0); Monocyte# 0.61 X10^3/uL; NRBC Flagged by Analyzer 0 % (0-5); Neutrophil # 5.67 X10^3/uL (2.7-7.7); Neutrophil % 74.2 % (47-70); Platelet Count 247 K/mm3 (150-450); RBC Distribution Width CV 13.4 % (11.6-14.6); Red Blood Count 4.76 M/mm3 (4.6-6.2); White Blood Count 7.6 K/mm3 (4.4-11.0)
[2021-02-21 08:07] LABS: Anion Gap 9 (5-15); BUN 73 mg/dL (7-18); BUN/Creat Ratio 35.1 RATIO (10-20); Calcium,Total 9.2 mg/dL (8.5-10.1); Chloride 104 mmol/L (98-107); Creatinine, Serum 2.08 mg/dL (0.70-1.30); EST Glomerular Filtration Rate 33 mL/min (>60); Est Glom Filt Rate - Afr Amer 40 mL/min (>60); Estimated Creatinine Clearance 27.26 ml/min; Glucose 115 mg/dL (74-106); Potassium 3.5 mmol/L (3.5-5.1); Sodium Level 139 mmol/L (136-145)
[2021-02-21] MEDS: Enoxaparin 120 MG/0.8 ML Syringe 110 MG SC (09:48)
[2021-02-21] MEDS: dexAMETHasone 4 MG Tablet 6 MG PO (09:49)
[2021-02-21] MEDS: Sertraline 50 MG Tablet PO (09:50)
[2021-02-21] MEDS: glipiZIDE 10 MG Tablet PO ×2 (09:51→17:15)
[2021-02-21] MEDS: Metoprolol Tartrate 100 MG Tablet PO ×2 (09:51→21:24)
[2021-02-21] MEDS: Potassium Chloride Oral Tablet 10 MEQ PO (09:51)
[2021-02-21] MEDS: Clopidogrel Bisulfate 75 MG Tablet PO (09:51)
[2021-02-21] MEDS: Tolterodine Tartrate 2 MG CAP.SA PO (09:51)
[2021-02-21] MEDS: Famotidine 20 MG Tablet 10 MG PO ×2 (09:52→21:24)
[2021-02-21] MEDS: Loratadine 10 MG Tablet PO (09:53)
[2021-02-21] MEDS: Aspirin 81 MG TAB.CHEW PO (10:00)
[2021-02-21] MEDS: Insulin Lispro 100 UNIT/ML INSULN.PEN SC ×3 (11:47→21:23)
--- NOTE | 2021-02-21 13:03 | PN.HOSP_ITS ---
Subjective Subjective Patient seen and examined. He was on 12 L of oxygen at time of review. Her shortness of breath is improved he thinks he has no other complaints. Review of systems otherwise negative. Patient's heart rate has remained poorly controlled on his heart rate has been in the 130s. Objective Data Objective Data Vital Signs: Vital Signs Temp Pulse Resp BP Pulse Ox 97.9 F 133 H 18 97/68 95 02/21/21 11:30 02/21/21 11:30 02/21/21 11:30 02/21/21 11:30 02/21/21 11:30 Oxygen Flow Rate (L/min) 15 Oxygen Delivery Method High Flow Weight: 230 lb 9.656 oz Body Mass Index (BMI) 37.7 Intake & Output: Intake and Output for Last 24 Hours 02/19/21 02/20/21 02/21/21 23:59 23:59 23:59 Intake Total 1080 / 1080 520 / 520 Output Total 300 / 300 400 / 800 1125 / 1125 Balance 780 / 780 -400 / -620 -605 / -605 Lab / Micro Data Result Diagrams: 02/21/21 06:34 02/21/21 06:34 Labs: Laboratory Results - last 24 hr 02/20/21 17:18: POC Glucose 288 H 02/20/21 21:43: POC Glucose 216 H 02/21/21 06:34: WBC 7.6, RBC 4.76, Hgb 14.6, Hct 43.0, MCV 90.3, MCH 30.7, MCHC 34.0, RDW Std Deviation 45.0 H, RDW Coeff of Luther 13.4, Plt Count 247, MPV 10.4, Immature Gran % (Auto) 1.400 H, Neut % (Auto) 74.2 H, Lymph % (Auto) 15.7 L, [place] % (Auto) 8.0, Eos % (Auto) 0.4, Baso % (Auto) 0.3, Absolute Neuts (auto) 5.7, Absolute Lymphs (auto) 1.20, Nucleated RBC % 0 02/21/21 06:34: Sodium 139, Potassium 3.5, Chloride 104, Carbon Dioxide 26.0, Anion Gap 9, BUN 73 H, Creatinine 2.08 H, Estim Creat Clear Calc 27.26, Est GFR (MDRD) Af Amer 40 L, Est GFR (MDRD) Non-Af 33 L, BUN/Creatinine Ratio 35.1 H, Glucose 115 H, Calcium 9.2 02/21/21 06:34: POC Glucose 104 Micro: Microbiology 02/19/21 05:50 Urine, Clean Catch Streptococcus pneumoniae Antigen (M - Final 02/19/21 05:50 Urine, Clean Catch Legionella Antigen - Final Radiography Diagnostic Testing: Radiology Impression Echocardiogram 02/18/21 21:48 Interpretation Summary Normal LV size. Left ventricular systolic function is lower limits of normal. The estimated ejection fraction is 53 %. Pulmonary artery systolic pressure is 28 mmHg. Stage 2 diastolic dysfunction. Ordering Physician: Janes Gramajo Referring Physician: NIKIA MENDOZA Performed By: Meg Figueredo, RDCS, RVT Physical Exam Const alert, oriented x3 and no apparent distress Exam Limitations: no limitations HEENT head/scalp atraumatic and moist oral mucous membranes Head and Scalp: normocephalic Eyes PERRL, EOMs intact bilaterally and conjunctivae normal Neck no lymphadenopathy Resp Resp Narrative: Diminished breath sounds bibasilarly. No wheezes or crackles. On 12 L of oxygen. Cardio regular rate, regular rhythm, S1 normal heart sound, S2 normal heart sound and no murmurs Cardio Narrative: afib, rate poorly controlled. GI normal to inspection, nondistended, normoactive bowel sounds, soft to palpation and non-tender Extremity normal to inspection, full ROM and no clubbing, cyanosis or edema Skin no rashes or lesions noted Neuro oriented x3 and CN's II-XII intact bilaterally Sensorium / Orientation: awake and alert Psych affect normal Assessment & Plan Assessment/Plan (1) COVID-19: (2) Acute respiratory failure with hypoxia: PLAN: #Acute hypoxic respiratory failure due to COVID 19 pneumonia * now on 12 L of oxygen. * On dexamethasone. Not a candidate for remdesivir. * will consult pulmonology in light of his increased oxygen needs, * Titrate oxygen to maintain saturation above 90%. Breathing treatments with bronchodilators. * #Acute exacerbation of heart failure with preserved ejection fraction * Known EF is 50%. On IV Lasix 40 mg every 8. * On aspirin, Brilinta and statins as well as metoprolol * #A. fib with RVR: * Heart rate has been fluctuating and was up in the 130s but is now down to 100 * Blood pressure is also running a tad bit low in the 90s systolic. On metoprolol 100 mg daily. We will maintain it at this dose for now. * IV Lopressor as needed. * #Elevated D-dimer * D-dimer was 1.8 on admission. CTA could not be done on account of elevated creatinine. * Patient currently on therapeutic Lovenox * I anticipate will be able to do a CTA of the chest tomorrow if creatinine is less than 2 to definitely rule out a PE. * #RADHA * Creatinine is down to 2.08 today. * Continue trending creatinine. * #Type 2 diabetes mellitus: On Lantus 50 units daily, glipizide. Insulin sliding scale. Accu-Cheks AC at bedtime. #Hypertension: On metoprolol and losartan. Losartan held on account of RADHA on CKD #Hypothyroidism: On Synthroid #Parkinson's disease:stable DVT prophylaxis: lovenox therapeutic dose. Charges/Coding Visit Charges Inpatient E&M: 24111 [facility] Hosp L3
--- NOTE | 2021-02-21 14:18 | NURSING ---
Permission given to this nurse to give granddaughter written confirmation of positive covid-19 test for vacation reimbursement.
[2021-02-21 14:41] LABS: Bedside Glucose 174 mg/dL (70-110)
--- NOTE | 2021-02-21 15:45 | CON.PCM.CC_ITS ---
Assessment & Plan Assessment/Plan (1) Acute respiratory failure with hypoxia: (2) COVID-19: (3) Acute kidney injury: (4) CHF (congestive heart failure): QUALIFIERS: Heart failure type: diastolic Heart failure chronicity: acute on chronic Qualified Code(s): I50.33 - Acute on chronic diastolic (congestive) heart failure (5) Diabetes: PLAN: RECOMMENDATIONS: 1. Agree with aggressive diuresis and rate control 2. Continue Decadron therapy to complete a 10-day course (03/01/2021) 3. No Remdesivir. 4. Complete 5-day course of Levaquin. Aggressive control of hyperglycemia 5. Continue nocturnal noninvasive therapy for ANABELL IMPRESSIONS: 1. Acute hypoxic respiratory failure secondary to COVID-19 Patient was immunized in June, but persists and high oxygen requirements. Patient does have concomitant heart disease, so agree with Decadron, rate control and aggressive diuresis. Patient would not qualify for remdesivir secondary to delayed presentation. Low clinical suspicion for PE as patient has been on full anticoagulation throughout the hospitalization. Will check a chest x-ray to evaluate for possible lobar collapse. Patient will be initiated on Acapella therapy. Encourage Acapella, incentive spirometer and prone positioning as tolerated. Will add mucolytic 2. Acute on chronic diastolic CHF/CAD/A. fib with RVR Agree with aggressive diuresis as renal function allows. Patient will also benefit from rate control. Rate appears to be relatively controlled at this time. We will have to watch renal function closely. 3. Advanced age/obesity/GERD/Parkinson's dis ease/hypertension/hyperlipidemia/diabetes Complicates care, management, recovery and prognosis. Patient is appropriately on steroid therapy, but will have to watch blood sugars closely. Continue Parkinson's medications. Pepcid is likely sufficient. Increase activity as tolerated. HPI Consult Data Date of Consult: 02/21/21 HPI Narrative HPI Narrative: KIMBERLY DUGAN is a 76 M, with past medical history listed below, who presented to [facility] on 02/18[facility]2021 secondary to cough, fever and chills with progressive shortness of breath on exertion. Patient does have an extensive cardiac history and also a history of thyroid cancer. Patient stated that he was immunized against COVID-19 in June of this year. Patient had reported 10 days of progressive shortness of breath. Patient was seen at the [facility] and placed on Levaquin and prednisone with little improvement. Patient was then diagnosed with Covid approximately 7 days prior to presentation. Patient does report a history of smoking, but denies any history of COPD. On presentation to the ER, patient was afebrile, but tachycardic at 123 bpm. Patient was requiring a nonrebreather to maintain saturations and was tachypneic as high as 32 breaths/min. Laboratory work-up at that time showed a white blood cell count of 10.5, hemoglobin of 14.1 and an elevated D-dimer of 1.8. BUN was elevated at 50 with creatinine of 2.8. Bicarbonate was slightly low at 20 and glucose was elevated at 314. Chest x-ray showed bilateral infiltrates and an EKG showed sinus tachycardia with a rate of 121. Patient was admitted to the floor and given a dose of Lasix therapy. An echoca rdiogram showed mild LVH with an EF of 50% and diastolic dysfunction. Pulmonary artery pressures have been elevated. Baseline creatinine appears to be approximately 1.6 to, so Cozaar was held. Patient was treated for hyperglycemia and initiated on steroid therapy. Patient was started on empiric Lovenox secondary to elevated creatinine. Given patient's persistent requirements of 12 to 15 L/min, a pulmonary consult was obtained. Patient denies any history of pulmonary disease in the past. Patient does not use any inhalers at baseline. Patient does not report any history of needing supplemental oxygen. Patient does have an extensive cardiac history, along with diabetes. Patient did not notice any significant lower extremity edema and does take Lasix at baseline. Patient does have obstructive sleep apnea and reports he has been compliant with his therapy at home. Patient did not have a productive cough at baseline, but reports that the onset of Covid he had very thick dark green sputum. Review of systems otherwise negative from a constitutional, HEENT, respiratory, cardiovascular, GI, genitourinary, musculoskeletal, skin, neurologic, psychiatric and hematologic system unless stated above. [facility] Medical History Allergic rhinitis BPH (benign prostatic hyperplasia) Chronic diastolic heart failure Coronary artery disease Diabetes Essential hypertension Hypertensive heart disease with acute diastolic congestive heart failure Insomnia Mixed hyperlipidemia ANABELL (obstructive sleep apnea) Proteinuria Restless leg syndrome Tubular adenoma of colon Vitamin D deficiency Home Medications aspirin 81 mg PO DAILY 03/10/13 [History Last Taken 05/02/18] atorvastatin 40 mg PO QHS 03/10/13 [History Last Taken 05/02/18] carbidopa-levodopa [Sinemet CR] 1 ea PO QHS 03/10/13 [History Last Taken 05/02/18] clopidogrel 75 mg PO DAILY 03/10/13 [History Last Taken 05/02/18] isosorbide mononitrate 30 mg PO DAILY 03/10/13 [History Last Taken 05/02/18] levothyroxine [Levoxyl] 200 mcg PO DAILY 03/10/13 [History Last Taken 05/02/18] losartan 100 mg PO DAILY 03/10/13 [History Last Taken 05/02/18] metoprolol tartrate 50 mg PO DAILY 03/10/13 [History Last Taken 05/02/18] nitroglycerin 0.4 mg SUBLINGUAL Q5M PRN 03/10/13 [History Last Taken 05/02/18] potassium chloride 10 meq PO DAILY 03/10/13 [History Last Taken 05/02/18] sertraline 50 mg PO DAILY 04/14/15 [History Last Taken 05/02/18] sitagliptin [Januvia] 100 mg PO DAILY 04/14/15 [History Last Taken 05/02/18] loratadine [Claritin] 10 mg PO DAILY 07/06/15 [History Last Taken 05/02/18] tamsulosin 0.8 mg PO QHS 07/06/15 [History Last Taken 05/02/18] benzonatate 200 mg PO TID PRN PRN #20 capsule 05/03/18 [Rx Last Taken Unknown] famotidine 10 mg PO BID 02/18/21 [History Last Taken Unknown] furosemide 20 mg PO BID 02/18/21 [History Last Taken Unknown] glipizide 10 mg PO BID 02/18/21 [History Last Taken Unknown] insulin glargine 40 unit SUBCUT DAILY 02/18/21 [History Last Taken Unknown] levofloxacin 500 mg PO DAILY 02/18/21 [History Last Taken Unknown] magnesium oxide 420 mg PO DAILY 02/18/21 [History Last Taken Unknown] multivitamin with iron-mineral [Unicomplex-M] 1 tab PO DAILY 02/18/21 [History Last Taken Unknown] prednisone 50 mg PO DAILY 02/18/21 [History Last Taken Unknown] semaglutide [Ozempic] 0.5 mg SUBCUT QWEEK 02/18/21 [History Last Taken Unknown] trospium 20 mg PO BID 02/18/21 [History Last Taken Unknown] Allergy/AdvReac Type Severity Reaction Status Date / Time albuterol AdvReac Mild thrush Verified 02/18/21 19:14 ANESESTHIA Allergy Severe Other Uncoded 02/18/21 19:14 Family History Other Diabetes Heart disease Surgical History Hx of mitral valve repair S/P CABG x 4 S/P coronary artery stent placement Social History (Updated 02/18/21 @ 23:27 by Yadira Umaña) Smoking Status: Former smoker ROS ROS Narrative See HPI Physical Exam Const alert, oriented x3 and no apparent distress Exam Limitations: no limitations HEENT head/scalp atraumatic and moist oral mucous membranes Head and Scalp: normocephalic Eyes PERRL, EOMs intact bilaterally and conjunctivae normal Neck no lymphadenopathy Chest inspection of chest normal Chest: symmetrical chest wall rise; Negative for crepitus Resp Resp Narrative: On 15 L/min of supplemental oxygen Effort and Inspection: Negative for uses accessory muscles Auscultation: diminished lung sounds; Negative for rales, rhonchi or wheezes Cardio S1 normal heart sound, S2 normal heart sound and no murmurs Cardio Narrative: afib, rate fairly controlled at approximately 100. Rate: tachycardic Rhythm: abnormal rhythm irregularly irregular GI normal to inspection, nondistended, normoactive bowel sounds, soft to palpation and non-tender Extremity normal to inspection, full ROM and no clubbing, cyanosis or edema Skin no rashes or lesions noted Neuro oriented x3 and CN's II-XII intact bilaterally Sensorium / Orientation: awake and alert Psych affect normal Lab / Micro Data Result Diagrams: 02/21/21 06:34 02/21/21 06:34 Labs: Laboratory Results - last 24 hr 02/20/21 17:18: POC Glucose 288 H 02/20/21 21:43: POC Glucose 216 H 02/21/21 06:34: WBC 7.6, RBC 4.76, Hgb 14.6, Hct 43.0, MCV 90.3, MCH 30.7, MCHC 34.0, RDW Std Deviation 45.0 H, RDW Coeff of Luther 13.4, Plt Count 247, MPV 10.4, Immature Gran % (Auto) 1.400 H, Neut % (Auto) 74.2 H, Lymph % (Auto) 15.7 L, [place] % (Auto) 8.0, Eos % (Auto) 0.4, Baso % (Auto) 0.3, Absolute Neuts (auto) 5.7, Absolute Lymphs (auto) 1.20, Nucleated RBC % 0 02/21/21 06:34: Sodium 139, Potassium 3.5, Chloride 104, Carbon Dioxide 26.0, Anion Gap 9, BUN 73 H, Creatinine 2.08 H, Estim Creat Clear Calc 27.26, Est GFR (MDRD) Af Amer 40 L, Est GFR (MDRD) Non-Af 33 L, BUN/Creatinine Ratio 35.1 H, Glucose 115 H, Calcium 9.2 02/21/21 06:34: POC Glucose 104 02/21/21 11:43: POC Glucose 174 H Radiology Impression Echocardiogram 02/18/21 21:48 Interpretation Summary Normal LV size. Left ventricular systolic function is lower limits of normal. The estimated ejection fraction is 53 %. Pulmonary artery systolic pressure is 28 mmHg. Stage 2 diastolic dysfunction. __ Ordering Physician: Janes Gramajo Referring Physician: NIKIA MENDOZA Performed By: Meg Figueredo, CHRISTA, RVT Charges/Coding Visit Charges Inpatient E&M: 04300 Init Hosp L3
--- NOTE | 2021-02-21 16:05 | RAD_ITS ---
STUDY: X-RAY CHEST REASON FOR EXAM: Male, 76 years old. Hypoxia TECHNIQUE: AP COMPARISON: 02/18/2021 FINDINGS: Sternal wires and mediastinal surgical clips compatible with prior CABG. EKG leads project over the chest. Left more than right patchy groundglass (peripheral dominant) and interstitial opacities are worse since the prior study. There is no demonstrated pleural abnormality. There is mild cardiac enlargement. Normal mediastinum and polo. Mild vascular congestion. There is atherosclerotic calcification of the aortic arch with tortuosity. No acute bony process. There is no demonstrated abnormality of the visualized soft tissue structures of the upper abdomen. RAD/Chest 1 View (Portable) IMPRESSION: Worsening multilobar pulmonary infiltrates, favoring COVID pneumonia. Electronically Signed: Levar Keller MD ([place]) at 16:21 EST , Service support ,
--- NOTE | 2021-02-21 16:14 | CASEMGMT ---
STEPHON RUVALCABA received call from Jeri at [facility] asking if patient was stable for transfer. STEPHON RUVALCABA called patient in room and he stated that he would like to stay at [facility] and have stay billed under his MCR. STEPHON RUVALCABA provided floor nurse with [facility] declination form for patient to sign.
[2021-02-21 17:26] LABS: Bedside Glucose 224 mg/dL (70-110)
[2021-02-21] MEDS: CARBIDOPA/LEVODOPA CR 50/200 Tablet PO (21:24)
[2021-02-21] MEDS: Tamsulosin HCl 0.4 MG Capsule 0.8 MG PO (21:24)
[2021-02-21] MEDS: guaiFENesin 1,200 MG Tablet 1200 MG PO (21:24)
[2021-02-21 21:30] LABS: Bedside Glucose 371 mg/dL (70-110)
[2021-02-22] VITALS (15 sets, daily range): BP systolic 108–138; BP diastolic 68–92; PULSE 89–125; RESP 12–24; TEMP 35.6–37; O2SAT 91–95
[2021-02-22] MEDS: Levothyroxine 100 MCG Tablet 200 MCG PO (05:14)
[2021-02-22] MEDS: Furosemide 40 MG/4 ML Vial IV ×3 (05:14→22:46)
[2021-02-22] MEDS: 0.9% Saline Lock 10 ML Syringe IV ×2 (05:14→22:46)
[2021-02-22] MEDS: levoFLOXacin 250 MG Tablet PO (05:14)
[2021-02-22] MEDS: Insulin Lispro 100 UNIT/ML INSULN.PEN SC ×4 (06:28→22:47)
[2021-02-22 06:35] LABS: Bedside Glucose 222 mg/dL (70-110)
[2021-02-22 07:16] LABS: Absolute Lymphocyte Count 0.98 X10^3/uL (0.83-4.51); Absolute Neutrophil Count 5.9 X10^3/uL (2.0-7.7); Basophil# 0.02 X10^3/uL; Basophil% 0.3 % (0-1); Eosinophil# 0.01 X10^3/uL; Eosinophils% 0.1 % (0-5); Hematocrit 42.4 % (40-54); Hemoglobin 14.3 g/dL (13.0-16.5); Lymphocyte # 0.98 X10^3/ul (0.83-4.51); Lymphocyte % 12.5 % (19-41); Mean Corp Hgb Conc 33.7 g/dL (32-36); Mean Corpuscular Hgb 30.2 pg (27.0-32.0); Mean Corpuscular Volume 89.5 fL (80-94); Mean Platelet Vol. 10.7 fl (6.2-12.0); Monocyte# 0.62 X10^3/uL; Monocyte% 7.9 % (0-10); NRBC Flagged by Analyzer 0 % (0-5); Neutrophil # 5.91 X10^3/uL (2.7-7.7); Neutrophil % 75.5 % (47-70); POSITIVE MORPHOLOGY YES; Platelet Count 234 K/mm3 (150-450); RBC Distribution Width CV 13.3 % (11.6-14.6); RBC Distribution Width SD 44.1 fl (35.1-43.9); Red Blood Count 4.74 M/mm3 (4.6-6.2); White Blood Count 7.8 K/mm3 (4.4-11.0)
[2021-02-22 07:37] LABS: Anion Gap 11 (5-15); BUN 65 mg/dL (7-18); BUN/Creat Ratio 32.8 RATIO (10-20); Calcium,Total 9.2 mg/dL (8.5-10.1); Chloride 103 mmol/L (98-107); Creatinine, Serum 1.98 mg/dL (0.70-1.30); EST Glomerular Filtration Rate 35 mL/min (>60); Est Glom Filt Rate - Afr Amer 43 mL/min (>60); Estimated Creatinine Clearance 28.64 ml/min; Glucose 230 mg/dL (74-106); Potassium 3.9 mmol/L (3.5-5.1); Sodium Level 138 mmol/L (136-145)
[2021-02-22 07:56] LABS: Differential Indicated SCAN CRITERIA MET
[2021-02-22 08:16] LABS: Differential Comment SCANNED
[2021-02-22] MEDS: guaiFENesin 1,200 MG Tablet 1200 MG PO ×2 (08:54→22:46)
[2021-02-22] MEDS: Clopidogrel Bisulfate 75 MG Tablet PO (08:55)
[2021-02-22] MEDS: Loratadine 10 MG Tablet PO (08:55)
[2021-02-22] MEDS: Tolterodine Tartrate 2 MG CAP.SA PO (08:55)
[2021-02-22] MEDS: Sertraline 50 MG Tablet PO (08:55)
[2021-02-22] MEDS: Famotidine 20 MG Tablet 10 MG PO ×2 (08:55→22:46)
[2021-02-22] MEDS: glipiZIDE 10 MG Tablet PO ×2 (08:55→17:25)
[2021-02-22] MEDS: dexAMETHasone 4 MG Tablet 6 MG PO (08:56)
[2021-02-22] MEDS: Aspirin 81 MG TAB.CHEW PO (08:57)
[2021-02-22] MEDS: Metoprolol Tartrate 100 MG Tablet PO ×2 (08:57→22:46)
[2021-02-22] MEDS: Potassium Chloride Oral Tablet 10 MEQ PO (08:57)
[2021-02-22] MEDS: Enoxaparin 120 MG/0.8 ML Syringe 110 MG SC (08:59)
--- NOTE | 2021-02-22 09:56 | CASEMGMT ---
[facility] Sandra from [facility] registration updated and tubed to registration at this time. Rashid SZYMANSKI CM
--- NOTE | 2021-02-22 11:16 | PN.HOSP_ITS ---
Subjective Subjective Patient seen and examined. He has no complaints and thinks his condition is the same. He is on 13 L of oxygen. Review of systems otherwise negative. Objective Data Objective Data Vital Signs: Vital Signs Temp Pulse Resp BP Pulse Ox 98.0 F 100 12 111/82 H 94 02/22/21 08:52 02/22/21 08:57 02/22/21 08:52 02/22/21 08:57 02/22/21 08:52 Oxygen Flow Rate (L/min) 15 Oxygen Delivery Method Bi-pap Weight: 228 lb 13.437 oz Body Mass Index (BMI) 37.7 Intake & Output: Intake and Output for Last 24 Hours 02/20/21 02/21/21 02/22/21 23:59 23:59 23:59 Intake Total 760 / 960 260 / 260 Output Total 400 / 800 1425 / 2325 1950 / 1950 Balance -400 / -620 -665 / -1365 -1690 / -1690 Lab / Micro Data Result Diagrams: 02/22/21 06:34 02/22/21 06:34 Labs: Laboratory Results - last 24 hr 02/21/21 11:43: POC Glucose 174 H 02/21/21 17:13: POC Glucose 224 H 02/21/21 21:19: POC Glucose 371 H 02/22/21 06:27: POC Glucose 222 H 02/22/21 06:34: WBC 7.8, RBC 4.74, Hgb 14.3, Hct 42.4, MCV 89.5, MCH 30.2, MCHC 33.7, RDW Std Deviation 44.1 H, RDW Coeff of Luther 13.3, Plt Count 234, MPV 10.7, Immature Gran % (Auto) 3.700 H, Neut % (Auto) 75.5 H, Lymph % (Auto) 12.5 L, [place] % (Auto) 7.9, Eos % (Auto) 0.1, Baso % (Auto) 0.3, Absolute Neuts (auto) 5.9, Absolute Lymphs (auto) 0.98, Nucleated RBC % 0, Differential Comment SCANNED 02/22/21 06:34: Sodium 138, Potassium 3.9, Chloride 103, Carbon Dioxide 24.0, Anion Gap 11, BUN 65 H, Creatinine 1.98 H, Estim Creat Clear Calc 28.64, Est GFR (MDRD) Af Amer 43 L, Est GFR (MDRD) Non-Af 35 L, BUN/Creatinine Ratio 32.8 H, Glucose 230 H, Calcium 9.2 Micro: Microbiology 02/19/21 05:50 Urine, Clean Catch Streptococcus pneumoniae Antigen (M - Final 02/19/21 05:50 Urine, Clean Catch Legionella Antigen - Final Radiography Diagnostic Testing: Radiology Impression Chest X-Ray 02/21/21 16:05 IMPRESSION: Worsening multilobar pulmonary infiltrates, favoring COVID pneumonia. Electronically Signed: Levar Keller MD ([place]) at 16:21 EST , Service support , Physical Exam Const alert, oriented x3 and no apparent distress Exam Limitations: no limitations Nutritional Appearance: obese HEENT head/scalp atraumatic and moist oral mucous membranes Head and Scalp: normocephalic Eyes PERRL, EOMs intact bilaterally and conjunctivae normal Neck no lymphadenopathy Resp Resp Narrative: Diminished breath sounds bibasilarly. No wheezes or crackles. On 13 L of oxygen. Cardio regular rate, regular rhythm, S1 normal heart sound, S2 normal heart sound and no murmurs Cardio Narrative: afib, rate controlled. GI normal to inspection, nondistended, normoactive bowel sounds, soft to palpation and non-tender Extremity normal to inspection, full ROM and no clubbing, cyanosis or edema Skin no rashes or lesions noted Neuro oriented x3 and CN's II-XII intact bilaterally Sensorium / Orientation: awake and alert Psych affect normal Assessment & Plan Assessment/Plan (1) COVID-19: (2) Acute respiratory failure with hypoxia: PLAN: #Acute hypoxic respiratory failure due to COVID 19 pneumonia * now on 32 L of oxygen. * On dexamethasone. Not a candidate for remdesivir. * will consult pulmonology in light of his increased oxygen needs, * Titrate oxygen to maintain saturation above 90%. Breathing treatments with bronchodilators. * #Acute exacerbation of heart failure with preserved ejection fraction * Known EF is 50%. On IV Lasix 40 mg bid * On aspirin, Brilinta and statins as well as metoprolol * #A. fib with RVR: * HR control has improved * continue metoprolol 100mg daily. IV lopressor prn * IV Lopressor as needed. * #Elevated D-dimer * D-dimer was 1.8 on admission. CTA could not be done on account of elevated creatinine. * Patient currently on therapeutic Lovenox * CR is 1.98 today. Will therefore order a CTA to rule out PE. * #RADHA * Creatinine is down to 1.98 today. * Continue trending creatinine. * #Type 2 diabetes mellitus: On Lantus 50 units daily, glipizide. Insulin sliding scale. Accu-Cheks AC at bedtime. #Hypertension: On metoprolol and losartan. Losartan held on account of RADHA on CKD #Hypothyroidism: On Synthroid #Parkinson's disease:stable DVT prophylaxis: lovenox therapeutic dose. Charges/Coding Visit Charges Inpatient E&M: 59614 [facility] Hosp L3
--- NOTE | 2021-02-22 11:20 | CT_ITS ---
STUDY: CTA CHEST REASON FOR EXAM: Male, 76 years old. Elevated d-dimer. Covid positive. RADIATION DOSAGE (If Supplied By Facility): CTDIvol = ( 17.41 ) mGy, DLP = ( 521.94 ) mGycm TECHNIQUE: The examination was performed with the intravenous administration of IV 100mL Isovue-370. Post-processing of the angiographic images was performed, with multiplanar reformation and 3D reconstruction. Individualized dose optimization techniques were used for this CT. COMPARISON: Comparison is made with prior chest radiograph done earlier today. FINDINGS: Normal enhancement of the main pulmonary artery and right and left pulmonary arteries. Normal enhancement of the bilateral peripheral pulmonary arteries. There is no demonstrated pulmonary embolism. There is atherosclerotic calcification of the aortic arch with tortuosity. There is no demonstrated aortic dissection. Sternal cerclage wires and vascular clips are present from a prior sternotomy and coronary artery bypass graft procedure (CABG). There are calcifications of the coronary arteries. Normal mediastinum. Normal hilar regions. Normal visualized trachea and bronchi. The lungs are well expanded. Diffuse bilateral airspace disease and a preferential peripheral distribution suggestive of pneumonitis associated with Covid.. This is worse in the left upper lobe. Normal pleura. Normal chest wall structures. There are degenerative changes of thoracic spine. Normal visualized upper abdomen. CT/CTA Chest W/WO Contrast IMPRESSION: No evidence of pulmonary emboli. Diffuse bilateral infiltrates in the preferential peripheral distribution suggestive of pneumonitis associated with Covid. Electronically Signed: Mal Taveras MD at 13:40 EST , Service support ,
[2021-02-22 12:06] LABS: Bedside Glucose 247 mg/dL (70-110)
--- NOTE | 2021-02-22 15:18 | CON.PCM.ID_ITS ---
Assessment & Plan Assessment/Plan (1) Diabetes: (2) COVID-19: PLAN: Sx started around 02/08, isolate until 02/28. On dex. With worsening O2, will start baricitinib; reviewed EUA and risks/benefits with him. CTA showed no PE. Will follow thank you (3) Acute kidney injury: HPI Consult Data Date of Consult: 02/22/21 HPI Narrative HPI Narrative: KIMBERLY DUGAN, is a 76 M who presented 02/18 with 10 days of symptoms, c/o cough, SOB, not feeling well. No fever, no aches, no change in taste/smell. Had been vaccinated. Tested (+) as outpt, started on pred and levaquin but sx worsened. Admitted here on dex, worsening O2, on bipap today. Full ROS performed and neg except as noted above. [facility] Medical History Allergic rhinitis BPH (benign prostatic hyperplasia) Chronic diastolic heart failure Coronary artery disease Diabetes Essential hypertension Hypertensive heart disease with acute diastolic congestive heart failure Insomnia Mixed hyperlipidemia ANABELL (obstructive sleep apnea) Proteinuria Restless leg syndrome Tubular adenoma of colon Vitamin D deficiency Home Medications aspirin 81 mg PO DAILY 03/10/13 [History Last Taken 05/02/18] atorvastatin 40 mg PO QHS 03/10/13 [History Last Taken 05/02/18] carbidopa-levodopa [Sinemet CR] 1 ea PO QHS 03/10/13 [History Last Taken 05/02/18] clopidogrel 75 mg PO DAILY 03/10/13 [History Last Taken 05/02/18] isosorbide mononitrate 30 mg PO DAILY 03/10/13 [History Last Taken 05/02/18] levothyroxine [Levoxyl] 200 mcg PO DAILY 03/10/13 [History Last Taken 05/02/18] losartan 100 mg PO DAILY 03/10/13 [History Last Taken 05/02/18] metoprolol tartrate 50 mg PO DAILY 03/10/13 [History Last Taken 05/02/18] nitroglycerin 0.4 mg SUBLINGUAL Q5M PRN 03/10/13 [History Last Taken 05/02/18] potassium chloride 10 meq PO DAILY 03/10/13 [History Last Taken 05/02/18] sertraline 50 mg PO DAILY 04/14/15 [History Last Taken 05/02/18] sitagliptin [Januvia] 100 mg PO DAILY 04/14/15 [History Last Taken 05/02/18] loratadine [Claritin] 10 mg PO DAILY 07/06/15 [History Last Taken 05/02/18] tamsulosin 0.8 mg PO QHS 07/06/15 [History Last Taken 05/02/18] benzonatate 200 mg PO TID PRN PRN #20 capsule 05/03/18 [Rx Last Taken Unknown] famotidine 10 mg PO BID 02/18/21 [History Last Taken Unknown] furosemide 20 mg PO BID 02/18/21 [History Last Taken Unknown] glipizide 10 mg PO BID 02/18/21 [History Last Taken Unknown] insulin glargine 40 unit SUBCUT DAILY 02/18/21 [History Last Taken Unknown] levofloxacin 500 mg PO DAILY 02/18/21 [History Last Taken Unknown] magnesium oxide 420 mg PO DAILY 02/18/21 [History Last Taken Unknown] multivitamin with iron-mineral [Unicomplex-M] 1 tab PO DAILY 02/18/21 [History Last Taken Unknown] prednisone 50 mg PO DAILY 02/18/21 [History Last Taken Unknown] semaglutide [Ozempic] 0.5 mg SUBCUT QWEEK 02/18/21 [History Last Taken Unknown] trospium 20 mg PO BID 02/18/21 [History Last Taken Unknown] Allergy/AdvReac Type Severity Reaction Status Date / Time albuterol AdvReac Mild thrush Verified 02/18/21 19:14 ANESESTHIA Allergy Severe Other Uncoded 02/18/21 19:14 Family History Other Diabetes Heart disease Surgical History Hx of mitral valve repair S/P CABG x 4 S/P coronary artery stent placement Social History (Updated 02/18/21 @ 23:27 by Yadira Umaña) Smoking Status: Former smoker Physical Exam Const alert, oriented x3 and no apparent distress General Appearance: cooperative Exam Limitations: no limitations HEENT head/scalp atraumatic Eyes PERRL and EOMs intact bilaterally Neck supple and No nodes Resp clear to auscultation bilaterally Auscultation: diminished lung sounds Cardio regular rate and regular rhythm GI normal to inspection, nondistended, normoactive bowel sounds Extremity no clubbing, cyanosis or edema Skin no rashes or lesions noted Neuro CN's II-XII intact bilaterally Lab / Micro Data Result Diagrams: 02/22/21 06:34 02/22/21 06:34 Labs: Laboratory Results - last 24 hr 02/21/21 17:13: POC Glucose 224 H 02/21/21 21:19: POC Glucose 371 H 02/22/21 06:27: POC Glucose 222 H 02/22/21 06:34: WBC 7.8, RBC 4.74, Hgb 14.3, Hct 42.4, MCV 89.5, MCH 30.2, MCHC 33.7, RDW Std Deviation 44.1 H, RDW Coeff of Luther 13.3, Plt Count 234, MPV 10.7, Immature Gran % (Auto) 3.700 H, Neut % (Auto) 75.5 H, Lymph % (Auto) 12.5 L, [place] % (Auto) 7.9, Eos % (Auto) 0.1, Baso % (Auto) 0.3, Absolute Neuts (auto) 5.9, Absolute Lymphs (auto) 0.98, Nucleated RBC % 0, Differential Comment SCANNED 02/22/21 06:34: Sodium 138, Potassium 3.9, Chloride 103, Carbon Dioxide 24.0, Anion Gap 11, BUN 65 H, Creatinine 1.98 H, Estim Creat Clear Calc 28.64, Est GFR (MDRD) Af Amer 43 L, Est GFR (MDRD) Non-Af 35 L, BUN/Creatinine Ratio 32.8 H, Glucose 230 H, Calcium 9.2 02/22/21 11:28: POC Glucose 247 H Radiology Impression Chest X-Ray 02/21/21 16:05 IMPRESSION: Worsening multilobar pulmonary infiltrates, favoring COVID pneumonia. Electronically Signed: Levar Keller MD ([place]) at 16:21 EST , Service support , Chest CTA 02/22/21 11:20 IMPRESSION: No evidence of pulmonary emboli. Diffuse bilateral infiltrates in the preferential peripheral distribution suggestive of pneumonitis associated with Covid. Electronically Signed: Mal Taveras MD at 13:40 EST , Service support ,
[2021-02-22 17:35] LABS: Bedside Glucose 371 mg/dL (70-110)
[2021-02-22] MEDS: Enoxaparin 30 MG/0.3 ML Syringe SC (22:46)
[2021-02-22] MEDS: CARBIDOPA/LEVODOPA CR 50/200 Tablet PO (22:46)
[2021-02-22] MEDS: Tamsulosin HCl 0.4 MG Capsule 0.8 MG PO (22:46)
[2021-02-22 22:55] LABS: Bedside Glucose 335 mg/dL (70-110)
[2021-02-23] VITALS (13 sets, daily range): BP systolic 121–137; BP diastolic 67–100; PULSE 87–110; RESP 16–18; TEMP 35.4–36.3; O2SAT 92–96
[2021-02-23] MEDS: Levothyroxine 100 MCG Tablet 200 MCG PO (05:02)
[2021-02-23] MEDS: 0.9% Saline Lock 10 ML Syringe IV (05:02)
[2021-02-23] MEDS: Furosemide 40 MG/4 ML Vial IV (05:02)
[2021-02-23] MEDS: Insulin Lispro 100 UNIT/ML INSULN.PEN SC ×4 (06:32→21:43)
[2021-02-23 06:50] LABS: Bedside Glucose 245 mg/dL (70-110)
[2021-02-23 08:27] LABS: Hematocrit 43.5 % (40-54); Hemoglobin 14.4 g/dL (13.0-16.5); Mean Corp Hgb Conc 33.1 g/dL (32-36); Mean Corpuscular Hgb 29.6 pg (27.0-32.0); Mean Corpuscular Volume 89.3 fL (80-94); Mean Platelet Vol. 10.9 fl (6.2-12.0); POSITIVE COUNT YES; POSITIVE MORPHOLOGY YES; Platelet Count 240 K/mm3 (150-450); RBC Distribution Width CV 13.2 % (11.6-14.6); RBC Distribution Width SD 43.5 fl (35.1-43.9); Red Blood Count 4.87 M/mm3 (4.6-6.2); White Blood Count 10.7 K/mm3 (4.4-11.0)
[2021-02-23 08:29] LABS: Differential Indicated MANUAL DIFF
[2021-02-23 08:45] LABS: AST(SGOT) 87 U/L (15-37); Alanine Aminotransfer ALT/SGPT 31 U/L (16-61); Albumin, Serum 2.2 g/dL (3.2-5.0); Alkaline Phosphatase 154 U/L (45-117); Anion Gap 11 (5-15); BUN 63 mg/dL (7-18); BUN/Creat Ratio 33.3 RATIO (10-20); Bilirubin, Direct 0.21 mg/dL (0.00-0.30); Calcium,Total 9.1 mg/dL (8.5-10.1); Chloride 101 mmol/L (98-107); Creatinine, Serum 1.89 mg/dL (0.70-1.30); EST Glomerular Filtration Rate 37 mL/min (>60); Est Glom Filt Rate - Afr Amer 45 mL/min (>60); Estimated Creatinine Clearance 30.01 ml/min; Glucose 200 mg/dL (74-106); Potassium 3.9 mmol/L (3.5-5.1); Protein, Total 7.2 g/dL (6.4-8.2); Sodium Level 136 mmol/L (136-145)
[2021-02-23 09:45] LABS: Eosinophil 1 % (0-5); Lymphocyte 15 % (19-41); Metamyelocyte 4 % (0-1); Monocyte 5 % (0-10); Neutrophil-Segmented 74 % (47-70); Promyelocyte 1 % (0-0); Total Cells Counted 100 (MANUAL DIFF)
[2021-02-23 09:46] LABS: Platelet Estimate ADEQUATE (ADEQ); Red Cell Morphology NORM C+C NORMAL (NORM C&C)
[2021-02-23 09:47] LABS: Absolute Neutrophil Count 7.9 X10^3/uL (2.0-7.7)
[2021-02-23] MEDS: Acetaminophen 325 MG Tablet 650 MG PO (10:50)
[2021-02-23] MEDS: glipiZIDE 10 MG Tablet PO ×2 (10:51→17:06)
[2021-02-23] MEDS: Clopidogrel Bisulfate 75 MG Tablet PO (10:52)
[2021-02-23] MEDS: Metoprolol Tartrate 100 MG Tablet PO ×2 (10:52→21:50)
[2021-02-23] MEDS: Tolterodine Tartrate 2 MG CAP.SA PO (10:52)
[2021-02-23] MEDS: Loratadine 10 MG Tablet PO (10:52)
[2021-02-23] MEDS: Famotidine 20 MG Tablet 10 MG PO ×2 (10:52→21:49)
[2021-02-23] MEDS: dexAMETHasone 4 MG Tablet 6 MG PO (10:52)
[2021-02-23] MEDS: Sertraline 50 MG Tablet PO (10:53)
[2021-02-23] MEDS: Potassium Chloride Oral Tablet 10 MEQ PO (10:53)
[2021-02-23] MEDS: Aspirin 81 MG TAB.CHEW PO (10:53)
[2021-02-23] MEDS: guaiFENesin 1,200 MG Tablet 1200 MG PO ×2 (10:53→21:50)
[2021-02-23] MEDS: Enoxaparin 30 MG/0.3 ML Syringe SC ×2 (10:53→21:47)
--- NOTE | 2021-02-23 10:53 | PN.HOSP_ITS ---
Subjective Subjective Patient seen and examined. He had no active complaints today. He has gone down to 9L of oxygen. HE was started by ID on baricitinib. REview of systems otherwise negative. he has otherwise remained hemodynamically stable. Objective Data Objective Data Vital Signs: Vital Signs Temp Pulse Resp BP Pulse Ox 97.3 F L 99 18 121/67 H 95 02/23/21 10:45 02/23/21 10:45 02/23/21 10:45 02/23/21 10:45 02/23/21 10:45 Oxygen Flow Rate (L/min) 9 Oxygen Delivery Method High Flow Weight: 225 lb 8.526 oz Body Mass Index (BMI) 37.7 Intake & Output: Intake and Output for Last 24 Hours 02/21/21 02/22/21 02/23/21 23:59 23:59 23:59 Intake Total 760 / 960 920 / 920 150 / 150 Output Total 1425 / 2325 3150 / 3150 975 / 975 Balance -665 / -1365 -2230 / -2230 -825 / -825 Lab / Micro Data Result Diagrams: 02/23/21 07:25 02/23/21 07:25 Labs: Laboratory Results - last 24 hr 02/22/21 11:28: POC Glucose 247 H 02/22/21 17:24: POC Glucose 371 H 02/22/21 22:40: POC Glucose 335 H 02/23/21 06:31: POC Glucose 245 H 02/23/21 07:25: WBC 10.7, RBC 4.87, Hgb 14.4, Hct 43.5, MCV 89.3, MCH 29.6, MCHC 33.1, RDW Std Deviation 43.5, RDW Coeff of Luther 13.2, Plt Count 240, MPV 10.9, Neut % (Auto) Not Reportable, Absolute Neuts (auto) 7.9 H, Absolute Lymphs (auto) 1.60, Total Counted 100, Neutrophils % (Manual) 74 H, Lymphocytes % (Manual) 15 L, Monocytes % (Manual) 5, Eosinophils % (Manual) 1, Metamyelocytes % 4 H, Promyelocytes % 1 H, Diff Path Review May , Platelet Estimate ADEQUATE, RBC Morphology NORM C+C 02/23/21 07:25: Sodium 136, Potassium 3.9, Chloride 101, Carbon Dioxide 24.0, Anion Gap 11, BUN 63 H, Creatinine 1.89 H, Estim Creat Clear Calc 30.01, Est GFR (MDRD) Af Amer 45 L, Est GFR (MDRD) Non-Af 37 L, BUN/Creatinine Ratio 33.3 H, Glucose 200 H, Calcium 9.1, Total Bilirubin 0.70, Direct Bilirubin 0.21, AST 87 H, ALT 31, Alkaline Phosphatase 154 H, C-React Prot Ext Range 38.00 H, Total Protein 7.2, Albumin 2.2 L, Globulin 5.0 H Micro: Microbiology 02/19/21 05:50 Urine, Clean Catch Streptococcus pneumoniae Antigen (M - Final 02/19/21 05:50 Urine, Clean Catch Legionella Antigen - Final Radiography Diagnostic Testing: Radiology Impression Chest CTA 02/22/21 11:20 IMPRESSION: No evidence of pulmonary emboli. Diffuse bilateral infiltrates in the preferential peripheral distribution suggestive of pneumonitis associated with Covid. Electronically Signed: Mal Taveras MD at 13:40 EST , Service support , Physical Exam Const alert, oriented x3 and no apparent distress Exam Limitations: no limitations Nutritional Appearance: obese HEENT head/scalp atraumatic and moist oral mucous membranes Head and Scalp: normocephalic Eyes PERRL, EOMs intact bilaterally and conjunctivae normal Neck no lymphadenopathy Resp Resp Narrative: Diminished breath sounds bibasilarly. No wheezes or crackles. On 9 L of oxygen. Cardio regular rate, S1 normal heart sound, S2 normal heart sound and no murmurs Cardio Narrative: afib, rate controlled. GI normal to inspection, nondistended, normoactive bowel sounds, soft to palpation and non-tender Extremity normal to inspection, full ROM and no clubbing, cyanosis or edema Skin no rashes or lesions noted Neuro oriented x3 and CN's II-XII intact bilaterally Sensorium / Orientation: awake and alert Psych affect normal Assessment & Plan Assessment/Plan (1) COVID-19: (2) Acute respiratory failure with hypoxia: PLAN: #Acute hypoxic respiratory failure due to COVID 19 pneumonia * now on 9 L of oxygen. * On dexamethasone. Not a candidate for remdesivir. * pulmonology on board * ID also on board; patient started on baricitinib. * Titrate oxygen to maintain saturation above 90%. Breathing treatments with bronchodilators. * #Acute exacerbation of heart failure with preserved ejection fraction * Known EF is 50%. On IV Lasix 40 mg bid. will switch lasix to PO * On aspirin, Brilinta and statins as well as metoprolol * #A. fib with RVR: * HR control has improved * continue metoprolol 100mg bid. IV lopressor prn * IV Lopressor as needed. * #Elevated D-dimer * D-dimer was 1.8 on admission. * CTA done yesterday was negative for PE. therapeutic lovenox stopped, and patient started on SC lovenox 40mg bid for dvt prophylaxis * #RADHA * Creatinine is down to 1.89 today. * Continue trending creatinine. * #Type 2 diabetes mellitus: On Lantus 50 units daily, glipizide. Insulin sliding scale. Accu-Cheks AC at bedtime. #Hypertension: On metoprolol and losartan. Losartan held on account of RADHA on CKD #Hypothyroidism: On Synthroid #Parkinson's disease:stable DVT prophylaxis: lovenox 40mg bid sc Charges/Coding Visit Charges Inpatient E&M: 70858 Subs Hosp L3
[2021-02-23 11:05] LABS: Bedside Glucose 255 mg/dL (70-110)
[2021-02-23 17:16] LABS: Bedside Glucose 350 mg/dL (70-110)
[2021-02-23] MEDS: CARBIDOPA/LEVODOPA CR 50/200 Tablet PO (21:47)
[2021-02-23] MEDS: Tamsulosin HCl 0.4 MG Capsule 0.8 MG PO (21:49)
[2021-02-23 22:30] LABS: Bedside Glucose 430 mg/dL (70-110)
[2021-02-24] VITALS (16 sets, daily range): BP systolic 119–143; BP diastolic 72–100; PULSE 91–124; RESP 12–18; TEMP 36–36.7; O2SAT 92–98
[2021-02-24] MEDS: Insulin Lispro 100 UNIT/ML INSULN.PEN SC ×4 (06:53→21:26)
[2021-02-24] MEDS: Levothyroxine 100 MCG Tablet 200 MCG PO (06:53)
[2021-02-24 07:01] LABS: Bedside Glucose 218 mg/dL (70-110)
[2021-02-24 07:34] LABS: Hematocrit 42.8 % (40-54); Hemoglobin 14.3 g/dL (13.0-16.5); Mean Corp Hgb Conc 33.4 g/dL (32-36); Mean Corpuscular Hgb 29.6 pg (27.0-32.0); Mean Corpuscular Volume 88.6 fL (80-94); Mean Platelet Vol. 10.7 fl (6.2-12.0); POSITIVE COUNT YES; POSITIVE MORPHOLOGY YES; Platelet Count 271 K/mm3 (150-450); RBC Distribution Width CV 13.2 % (11.6-14.6); RBC Distribution Width SD 43.2 fl (35.1-43.9); Red Blood Count 4.83 M/mm3 (4.6-6.2); White Blood Count 13.1 K/mm3 (4.4-11.0)
[2021-02-24 07:36] LABS: Differential Indicated MANUAL DIFF
[2021-02-24 08:01] LABS: Anion Gap 9 (5-15); BUN 71 mg/dL (7-18); Calcium,Total 9.5 mg/dL (8.5-10.1); Chloride 103 mmol/L (98-107); Creatinine, Serum 1.97 mg/dL (0.70-1.30); EST Glomerular Filtration Rate 35 mL/min (>60); Est Glom Filt Rate - Afr Amer 43 mL/min (>60); Estimated Creatinine Clearance 28.79 ml/min; Glucose 217 mg/dL (74-106); Sodium Level 136 mmol/L (136-145)
[2021-02-24 08:10] LABS: Lymphocyte 18 % (19-41); Metamyelocyte 2 % (0-1); Monocyte 10 % (0-10); Neutrophil-Segmented 69 % (47-70); Plasma Cell 1 %; Platelet Estimate ADEQUATE (ADEQ); Total Cells Counted 100 (MANUAL DIFF)
[2021-02-24 08:11] LABS: Absolute Lymphocyte Count 2.35 X10^3/uL (0.83-4.51); Red Cell Morphology NORM C+C NORMAL (NORM C&C)
[2021-02-24] MEDS: Enoxaparin 30 MG/0.3 ML Syringe SC ×2 (09:48→21:30)
[2021-02-24] MEDS: Sertraline 50 MG Tablet PO (09:48)
[2021-02-24] MEDS: guaiFENesin 1,200 MG Tablet 1200 MG PO ×2 (09:48→21:28)
[2021-02-24] MEDS: Potassium Chloride Oral Tablet 10 MEQ PO (09:49)
[2021-02-24] MEDS: glipiZIDE 10 MG Tablet PO ×2 (09:49→17:49)
[2021-02-24] MEDS: Famotidine 20 MG Tablet 10 MG PO ×2 (09:49→21:29)
[2021-02-24] MEDS: Aspirin 81 MG TAB.CHEW PO (09:49)
[2021-02-24] MEDS: Furosemide 40 MG Tablet PO (09:49)
[2021-02-24] MEDS: dexAMETHasone 4 MG Tablet 6 MG PO (09:49)
[2021-02-24] MEDS: Tolterodine Tartrate 2 MG CAP.SA PO (09:50)
[2021-02-24] MEDS: Clopidogrel Bisulfate 75 MG Tablet PO (09:50)
[2021-02-24] MEDS: Metoprolol Tartrate 100 MG Tablet PO ×2 (09:50→21:30)
[2021-02-24] MEDS: Loratadine 10 MG Tablet PO (09:50)
[2021-02-24 10:01] LABS: Bedside Glucose 245 mg/dL (70-110)
--- NOTE | 2021-02-24 11:45 | CASEMGMT ---
Pt is currently on 9L nc. [facility] but if [facility] were to d[facility]c over weekend then [facility] and pt states no further preference for DME company at this time. Green sheet left on chart for [employer] at this time. Pt still states no concerns with going home at time of discharge. CM to follow for any further discharge planning/needs. Rashid SZYMANSKI CM
--- NOTE | 2021-02-24 12:08 | PN.HOSP_ITS ---
Subjective Subjective Patient seen and examined. He was on BiPAP at time of review. He had no active complaints and felt well. Review of systems otherwise negative. He was subsequently weaned down to 9 L of oxygen by nasal cannula Objective Data Objective Data Vital Signs: Vital Signs Temp Pulse Resp BP Pulse Ox 97.7 F L 124 H 18 119/73 93 02/24/21 09:46 02/24/21 09:50 02/24/21 09:46 02/24/21 09:46 02/24/21 11:31 Oxygen Flow Rate (L/min) 9 Oxygen Delivery Method Nasal Cannula Weight: 225 lb 8.526 oz Body Mass Index (BMI) 37.7 Intake & Output: Intake and Output for Last 24 Hours 02/22/21 02/23/21 02/24/21 23:59 23:59 23:59 Intake Total 920 / 920 690 / 710 Output Total 3150 / 3150 975 / 1475 555 / 555 Balance -2230 / -2230 -285 / -765 -535 / -535 Lab / Micro Data Result Diagrams: 02/24/21 07:04 02/24/21 07:04 Labs: Laboratory Results - last 24 hr 02/23/21 17:05: POC Glucose 350 H 02/23/21 21:39: POC Glucose 430 H 02/24/21 06:51: POC Glucose 218 H 02/24/21 07:04: WBC 13.1 H, RBC 4.83, Hgb 14.3, Hct 42.8, MCV 88.6, MCH 29.6, MCHC 33.4, RDW Std Deviation 43.2, RDW Coeff of Luther 13.2, Plt Count 271, MPV 10.7, Neut % (Auto) Not Reportable, Absolute Neuts (auto) 9.0 H, Absolute Lymphs (auto) 2.35, Total Counted 100, Neutrophils % (Manual) 69, Lymphocytes % (Manual) 18 L, Monocytes % (Manual) 10, Metamyelocytes % 2 H, Plasma Cell % (Manual) 1, Diff Path Review August, Platelet Estimate ADEQUATE, RBC Morphology NORM C+C 02/24/21 07:04: Sodium 136, Potassium 4.0, Chloride 103, Carbon Dioxide 24.0, Anion Gap 9, BUN 71 H, Creatinine 1.97 H, Estim Creat Clear Calc 28.79, Est GFR (MDRD) Af Amer 43 L, Est GFR (MDRD) Non-Af 35 L, BUN/Creatinine Ratio 36.0 H, Glucose 217 H, Calcium 9.5 02/24/21 09:45: POC Glucose 245 H Micro: Microbiology 02/19/21 05:50 Urine, Clean Catch Streptococcus pneumoniae Antigen (M - Final 02/19/21 05:50 Urine, Clean Catch Legionella Antigen - Final Physical Exam Const alert, oriented x3 and no apparent distress Exam Limitations: no limitations Nutritional Appearance: obese HEENT head/scalp atraumatic and moist oral mucous membranes Head and Scalp: normocephalic Eyes PERRL, EOMs intact bilaterally and conjunctivae normal Neck no lymphadenopathy Resp Resp Narrative: Diminished breath sounds bibasilarly. No wheezes or crackles. On 9 L of oxygen. Cardio S1 normal heart sound, S2 normal heart sound and no murmurs Cardio Narrative: afib, rate controlled. GI normal to inspection, nondistended, normoactive bowel sounds, soft to palpation and non-tender Extremity normal to inspection, full ROM and no clubbing, cyanosis or edema Peripheral Pulses: Yes pulses 2+ throughout Skin no rashes or lesions noted Neuro oriented x3 and CN's II-XII intact bilaterally Sensorium / Orientation: awake and alert Psych affect normal Assessment & Plan Assessment/Plan (1) COVID-19: (2) Acute respiratory failure with hypoxia: PLAN: #Acute hypoxic respiratory failure due to COVID 19 pneumonia * now on 9 L of oxygen, alternating with BIPAP qhs. * On dexamethasone. Not a candidate for remdesivir. * pulmonology on board * ID also on board; patientnow on baricitinib. * Titrate oxygen to maintain saturation above 90%. Breathing treatments with bronchodilators. * #Acute exacerbation of heart failure with preserved ejection fraction * Known EF is 50%. Now on PO lasix. * On aspirin, Brilinta and statins as well as metoprolol * #A. fib with RVR: * HR control has improved * continue metoprolol 100mg bid. IV lopressor prn * IV Lopressor as needed. * #Elevated D-dimer * D-dimer was 1.8 on admission. * CTA done yesterday was negative for PE. therapeutic lovenox stopped, and patient started on SC lovenox 40mg bid for dvt prophylaxis * #RADHA * Creatinine is down 1.97 today. * I do suspect the patient may have some underlying CKD but I am not sure what stage it is as his last creatinine in our records was from June 2015 which was 1.05. We will continue monitoring and see. * Continue trending creatinine. * #Type 2 diabetes mellitus: On Lantus 50 units daily, glipizide. Insulin sliding scale. Accu-Cheks AC at bedtime. #Hypertension: On metoprolol and losartan. Losartan held on account of RADHA on CKD #Hypothyroidism: On Synthroid #Parkinson's disease:stable. On levodopa/carbidopa DVT prophylaxis: lovenox 40mg bid sc Charges/Coding Visit Charges Inpatient E&M: 64975 Subs Hosp L2
[2021-02-24 14:22] LABS: Pathologist Review Reviewed
[2021-02-24 14:28] LABS: Pathologist Review Reviewed
--- NOTE | 2021-02-24 15:25 | PCM.PN.ID ---
Physical Exam Narrative Now with some sputum, some blood present. No fever, breathing a little better. Const alert and no apparent distress General Appearance: cooperative Resp clear to auscultation bilaterally Auscultation: diminished lung sounds Cardio regular rate and regular rhythm GI normal to inspection, nondistended, normoactive bowel sounds Extremity no clubbing, cyanosis or edema Skin no rashes or lesions noted ID ID: Route of nutrition/ use of supplements: [] Nutritional Intake: [] IV Site: [] Walters Catheter: [] Assessment & Plan Assessment/Plan (1) Diabetes: (2) COVID-19: PLAN: Sx started around 02/08, isolate until 02/28. On dex, baricitinib. CTA showed no PE. O2 improved. Now with sputum, will order culture. Will follow (3) Acute kidney injury:
[2021-02-24 18:00] LABS: Bedside Glucose 383 mg/dL (70-110)
[2021-02-24] MEDS: Tamsulosin HCl 0.4 MG Capsule 0.8 MG PO (21:28)
[2021-02-24] MEDS: CARBIDOPA/LEVODOPA CR 50/200 Tablet PO (21:28)
[2021-02-24 22:16] LABS: Bedside Glucose 425 mg/dL (70-110)
[2021-02-25] VITALS (18 sets, daily range): BP systolic 113–150; BP diastolic 73–100; PULSE 82–124; RESP 12–23; TEMP 35.7–37.1; O2SAT 90–97
--- NOTE | 2021-02-25 06:09 | PN.CC_ITS ---
Assessment & Plan Assessment/Plan (1) Acute respiratory failure with hypoxia: (2) COVID-19: (3) Acute kidney injury: (4) CHF (congestive heart failure): QUALIFIERS: Heart failure chronicity: acute on chronic Heart failure type: diastolic Qualified Code(s): I50.33 - Acute on chronic diastolic (congestive) heart failure (5) Diabetes: PLAN: RECOMMENDATIONS: 1. Continue to wean supplemental oxygen to maintain saturations at or above 90%. 2. Continue Pap therapy with naps and nightly. 3. Continue Decadron and baricitinib to complete treatment course. 4. Continue prophylactic Lovenox. 5. Diuresis as tolerated by hemodynamics and renal function. 6. Encourage incentive spirometer use and mobilize patient as tolerated. 7. Given improving oxygenation status, will sign off. Please call with any additional questions. IMPRESSIONS: 1. Acute hypoxic respiratory failure secondary to COVID-19 The patient initially presented to the hospital with approximately 10 days of symptoms. He was subsequently placed on Decadron, prophylactic Lovenox and baricitinib. He had previously completed a treatment course of Levaquin. The patient has been maintained on diuretic therapy as tolerated by hemodynamics and renal function. Oxygenation status is slowly improving. Continue to wean supplemental oxygen as tolerated to maintain saturations at or above 90%. Continue Pap therapy with naps and nightly. Encourage incentive spirometer use and mobilize patient as tolerated. 2. Acute on chronic diastolic CHF/CAD/A. fib with RVR Continue current medical management with diuretics and rate control strategy as tolerated. 3. Advanced age/obesity/GERD/Parkinson's disease/hypert ension/hyperlipidemia/diabetes Complicates care, management, recovery and prognosis. Continue home medications as indicated. This note was generated with [employer] dictation software. It may contain incorrect words, spelling, and punctuation that were not noted in checking the note before signing. Subjective Subjective The patient was seen and examined at the bedside this morning. Events from the last 24 hours have been reviewed. The patient is currently afebrile, hemodynamically stable and maintaining appropriate oxygen saturations on BiPAP with an FiO2 of 50%. However, the patient was able to be weaned to nasal cannula oxygen throughout the day yesterday. The patient is currently documented to be overall net -3.4 L for the hospitalization. The patient remains on Decadron, baricitinib, prophylactic Lovenox and scheduled daily Lasix. Objective Data Objective Data The patient's most recent lab work, culture data and imaging studies have all been personally reviewed. Surface echocardiogram dated February 20 demonstrated mild concentric LVH with an ejection fraction of 55% and stage II diastolic dysfunction. Infectious work-up has been unrevealing to date. Vital Signs: Vital Signs Temp Pulse Resp BP Pulse Ox 98.0 F 99 18 138/100 H 97 02/25/21 03:35 02/25/21 03:35 02/25/21 03:35 02/25/21 03:35 02/25/21 03:35 Oxygen Flow Rate (L/min) 8 Oxygen Delivery Method Bi-pap Weight: 102.3 kg Body Mass Index (BMI) 37.7 Intake & Output: Intake and Output for Last 24 Hours 02/23/21 02/24/21 02/25/21 23:59 23:59 23:59 Intake Total 690 / 710 345 / 345 Output Total 975 / 1475 2004 Balance -285 / -765 -1660 / -1660 Lab / Micro Data Attestation: I reviewed the patient's lab results. Result Diagrams: 02/25/21 06:50 02/25/21 06:50 Labs: Laboratory Results - last 24 hr 02/23/21 07:25: Diff Path Review Reviewed 02/24/21 06:51: POC Glucose 218 H 02/24/21 07:04: WBC 13.1 H, RBC 4.83, Hgb 14.3, Hct 42.8, MCV 88.6, MCH 29.6, MCHC 33.4, RDW Std Deviation 43.2, RDW Coeff of Luther 13.2, Plt Count 271, MPV 10.7, Neut % (Auto) Not Reportable, Absolute Neuts (auto) 9.0 H, Absolute Lymphs (auto) 2.35, Total Counted 100, Neutrophils % (Manual) 69, Lymphocytes % (Manual) 18 L, Monocytes % (Manual) 10, Metamyelocytes % 2 H, Plasma Cell % (Manual) 1, Diff Path Review Reviewed, Platelet Estimate ADEQUATE, RBC Morphology NORM C+C 02/24/21 07:04: Sodium 136, Potassium 4.0, Chloride 103, Carbon Dioxide 24.0, Anion Gap 9, BUN 71 H, Creatinine 1.97 H, Estim Creat Clear Calc 28.79, Est GFR (MDRD) Af Amer 43 L, Est GFR (MDRD) Non-Af 35 L, BUN/Creatinine Ratio 36.0 H, Glucose 217 H, Calcium 9.5 02/24/21 09:45: POC Glucose 245 H 02/24/21 17:48: POC Glucose 383 H 02/24/21 21:26: POC Glucose 425 H Micro: Microbiology 02/19/21 05:50 Urine, Clean Catch Streptococcus pneumoniae Antigen (M - Fin al 02/19/21 05:50 Urine, Clean Catch Legionella Antigen - Final Physical Exam Const alert and no apparent distress General Appearance: cooperative and on BiPAP Nutritional Appearance: obese HEENT normocephalic and head/scalp atraumatic Eyes PERRL and EOMs intact bilaterally Neck supple General: trachea midline Chest inspection of chest normal Resp normal respiratory effort and no use of accessory muscles Auscultation: Negative for rales, rhonchi or wheezes Cardio S1 normal heart sound and S2 normal heart sound Rhythm: abnormal rhythm GI normal to inspection, nondistended, normoactive bowel sounds Extremity no clubbing, cyanosis or edema Skin no rashes or lesions noted Neuro moves all extremities and no focal motor deficits Psych cooperative and affect normal Charges/Coding Visit Charges Inpatient E&M: 31149 Subs Hosp L2
[2021-02-25] MEDS: Insulin Lispro 100 UNIT/ML INSULN.PEN SC ×4 (06:30→23:12)
[2021-02-25] MEDS: Levothyroxine 100 MCG Tablet 200 MCG PO (06:32)
[2021-02-25 07:00] LABS: Bedside Glucose 183 mg/dL (70-110)
[2021-02-25 07:13] LABS: Hematocrit 42.7 % (40-54); Hemoglobin 14.1 g/dL (13.0-16.5); Mean Corpuscular Hgb 29.7 pg (27.0-32.0); Mean Corpuscular Volume 89.9 fL (80-94); Mean Platelet Vol. 10.6 fl (6.2-12.0); POSITIVE COUNT YES; POSITIVE MORPHOLOGY YES; Platelet Count 267 K/mm3 (150-450); RBC Distribution Width CV 13.2 % (11.6-14.6); RBC Distribution Width SD 43.8 fl (35.1-43.9); Red Blood Count 4.75 M/mm3 (4.6-6.2); White Blood Count 13.7 K/mm3 (4.4-11.0)
[2021-02-25 07:19] LABS: Differential Indicated MANUAL DIFF
[2021-02-25 07:39] LABS: Metamyelocyte 8 % (0-1); Neutrophil-Band 2 % (0-5); Neutrophil-Segmented 71 % (47-70); Total Cells Counted 100 (MANUAL DIFF)
[2021-02-25 07:40] LABS: Lymphocyte 15 % (19-41); Monocyte 3 % (0-10); Myelocyte 1 % (0-0); Platelet Estimate ADEQUATE (ADEQ); Red Cell Morphology NORM C+C NORMAL (NORM C&C)
[2021-02-25 07:41] LABS: Absolute Lymphocyte Count 2.05 X10^3/uL (0.83-4.51); Lymphocyte # 2.05 X10^3/ul (0.83-4.51)
[2021-02-25 08:05] LABS: ALB/GLOB Ratio 0.5 RATIO (0.9-2.4); AST(SGOT) 59 U/L (15-37); Alanine Aminotransfer ALT/SGPT 28 U/L (16-61); Albumin, Serum 2.3 g/dL (3.2-5.0); Alkaline Phosphatase 189 U/L (45-117); Anion Gap 7 (5-15); BUN 62 mg/dL (7-18); BUN/Creat Ratio 33.2 RATIO (10-20); Calcium,Total 9.1 mg/dL (8.5-10.1); Chloride 105 mmol/L (98-107); Creatinine, Serum 1.87 mg/dL (0.70-1.30); EST Glomerular Filtration Rate 38 mL/min (>60); Est Glom Filt Rate - Afr Amer 45 mL/min (>60); Estimated Creatinine Clearance 30.33 ml/min; Globulin 4.8 g/dL (2.2-4.2); Glucose 195 mg/dL (74-106); Potassium 4.1 mmol/L (3.5-5.1); Protein, Total 7.1 g/dL (6.4-8.2); Sodium Level 138 mmol/L (136-145)
[2021-02-25] MEDS: Enoxaparin 30 MG/0.3 ML Syringe SC ×2 (08:06→23:03)
[2021-02-25] MEDS: dexAMETHasone 4 MG Tablet 6 MG PO (08:07)
[2021-02-25] MEDS: glipiZIDE 10 MG Tablet PO ×2 (08:08→17:22)
[2021-02-25] MEDS: Aspirin 81 MG TAB.CHEW PO (08:08)
[2021-02-25] MEDS: Tolterodine Tartrate 2 MG CAP.SA PO (08:08)
[2021-02-25] MEDS: Potassium Chloride Oral Tablet 10 MEQ PO (08:08)
[2021-02-25] MEDS: Famotidine 20 MG Tablet 10 MG PO ×2 (08:09→23:09)
[2021-02-25] MEDS: Furosemide 40 MG Tablet PO (08:09)
[2021-02-25] MEDS: Sertraline 50 MG Tablet PO (08:10)
[2021-02-25] MEDS: Loratadine 10 MG Tablet PO (08:10)
[2021-02-25] MEDS: Clopidogrel Bisulfate 75 MG Tablet PO (08:10)
[2021-02-25] MEDS: Metoprolol Tartrate 100 MG Tablet PO ×2 (08:10→23:04)
[2021-02-25] MEDS: guaiFENesin 1,200 MG Tablet 1200 MG PO ×2 (08:11→23:04)
[2021-02-25 12:05] LABS: Bedside Glucose 371 mg/dL (70-110)
--- NOTE | 2021-02-25 12:56 | PN.HOSP_ITS ---
Subjective Subjective Patient seen and examined. HE has no active complaints today and feels well. Review of systems otherwise negative. he is down to 6L of oxygen. He has remained hemodynamically stable. Objective Data Objective Data Vital Signs: Vital Signs Temp Pulse Resp BP Pulse Ox 96.3 F L 84 19 H 120/82 H 94 02/25/21 10:00 02/25/21 12:00 02/25/21 10:00 02/25/21 10:00 02/25/21 10:00 Oxygen Flow Rate (L/min) 6 Oxygen Delivery Method Nasal Cannula Weight: 224 lb 6.889 oz Body Mass Index (BMI) 37.7 Intake & Output: Intake and Output for Last 24 Hours 02/23/21 02/24/21 02/25/21 23:59 23:59 23:59 Intake Total 690 / 710 345 / 345 255 / 255 Output Total 975 / 1475 2004 100 / 100 Balance -285 / -765 -1660 / -1660 155 / 155 Lab / Micro Data Result Diagrams: 02/25/21 06:50 02/25/21 06:50 Labs: Laboratory Results - last 24 hr 02/23/21 07:25: Diff Path Review Reviewed 02/24/21 07:04: Diff Path Review Reviewed 02/24/21 17:48: POC Glucose 383 H 02/24/21 21:26: POC Glucose 425 H 02/25/21 06:28: POC Glucose 183 H 02/25/21 06:50: WBC 13.7 H, RBC 4.75, Hgb 14.1, Hct 42.7, MCV 89.9, MCH 29.7, MCHC 33.0, RDW Std Deviation 43.8, RDW Coeff of Luther 13.2, Plt Count 267, MPV 10.6, Neut % (Auto) Not Reportable, Absolute Neuts (auto) 10.0 H, Absolute Lymphs (auto) 2.05, Total Counted 100, Neutrophils % (Manual) 71 H, Band Neutrophils % 2, Lymphocytes % (Manual) 15 L, Monocytes % (Manual) 3, Metamyelocytes % 8 H, Myelocytes % 1 H, Diff Path Review May , Platelet Estimate ADEQUATE, RBC Morphology NORM C+C 02/25/21 06:50: Sodium 138, Potassium 4.1, Chloride 105, Carbon Dioxide 26.0, Anion Gap 7, BUN 62 H, Creatinine 1.87 H, Estim Creat Clear Calc 30.33, Est GFR (MDRD) Af Amer 45 L, Est GFR (MDRD) Non-Af 38 L, BUN/Creatinine Ratio 33.2 H, Glucose 195 H, Calcium 9.1, Total Bilirubin 0.70, AST 59 H, ALT 28, Alkaline Phosphatase 189 H, Total Protein 7.1, Albumin 2.3 L, Globulin 4.8 H, Albumin/Globulin Ratio 0.5 L 02/25/21 11:57: POC Glucose 371 H Micro: Microbiology 02/19/21 05:50 Urine, Clean Catch Streptococcus pneumoniae Antigen (M - Final 02/19/21 05:50 Urine, Clean Catch Legionella Antigen - Final Physical Exam Const alert, oriented x3 and no apparent distress Exam Limitations: no limitations Nutritional Appearance: obese HEENT head/scalp atraumatic and moist oral mucous membranes Head and Scalp: normocephalic Eyes PERRL, EOMs intact bilaterally and conjunctivae normal Neck no lymphadenopathy Resp Resp Narrative: Diminished breath sounds bibasilarly. No wheezes or crackles. Now on 6 L of oxygen. Cardio S1 normal heart sound, S2 normal heart sound and no murmurs Cardio Narrative: afib, rate controlled. GI normal to inspection, nondistended, normoactive bowel sounds, soft to palpation and non-tender Extremity normal to inspection, full ROM and no clubbing, cyanosis or edema Peripheral Pulses: Yes pulses 2+ throughout Skin no rashes or lesions noted Neuro oriented x3 and CN's II-XII intact bilaterally Sensorium / Orientation: awake and alert Psych affect normal Assessment & Plan Assessment/Plan (1) COVID-19: (2) Acute respiratory failure with hypoxia: PLAN: #Acute hypoxic respiratory failure due to COVID 19 pneumonia * now on 6 L of oxygen, alternating with BIPAP qhs. * On dexamethasone. Not a candidate for remdesivir. * pulmonology on board * ID also on board; patient on baricitinib. * Titrate oxygen to maintain saturation above 90%. Breathing treatments with bronchodilators. * #Acute exacerbation of heart failure with preserved ejection fraction * Known EF is 50%. Now on PO lasix. * On aspirin, Brilinta and statins as well as metoprolol * #A. fib with RVR: * HR control has improved * continue metoprolol 100mg bid. IV lopressor prn * IV Lopressor as needed. * #Elevated D-dimer * D-dimer was 1.8 on admission. * CTA done was negative for PE. * #?CKD stage 3A * Creatinine is down 1.87 today. * I do suspect the patient may have some underlying CKD but I am not sure what stage it is as his last creatinine in our records was from June 2015 which was 1.05. We will continue monitoring and see. * Continue trending creatinine. * #Type 2 diabetes mellitus: On Lantus 50 units daily, glipizide. Insulin sliding scale. Accu-Cheks AC at bedtime. #Hypertension: On metoprolol and losartan. Losartan held on account of RADHA on CKD #Hypothyroidism: On Synthroid #Parkinson's disease:stable. On levodopa/carbidopa DVT prophylaxis: lovenox 40mg bid sc Charges/Coding Visit Charges Inpatient E&M: 57961 Subs Hosp L2
[2021-02-25 17:50] LABS: Bedside Glucose 401 mg/dL (70-110)
[2021-02-25] MEDS: Tamsulosin HCl 0.4 MG Capsule 0.8 MG PO (23:03)
[2021-02-25] MEDS: CARBIDOPA/LEVODOPA CR 50/200 Tablet PO (23:04)
[2021-02-25 23:26] LABS: Bedside Glucose 311 mg/dL (70-110)
[2021-02-26] VITALS (20 sets, daily range): BP systolic 102–135; BP diastolic 55–87; PULSE 79–123; RESP 12–24; TEMP 36.6–36.8; O2SAT 86–96
[2021-02-26] MEDS: Levothyroxine 100 MCG Tablet 200 MCG PO (06:51)
[2021-02-26] MEDS: Insulin Lispro 100 UNIT/ML INSULN.PEN SC ×4 (06:53→22:58)
[2021-02-26 07:10] LABS: Bedside Glucose 169 mg/dL (70-110)
[2021-02-26] MEDS: Enoxaparin 30 MG/0.3 ML Syringe SC ×2 (08:38→23:00)
[2021-02-26] MEDS: Metoprolol Tartrate 100 MG Tablet PO ×2 (08:39→23:00)
[2021-02-26] MEDS: Sertraline 50 MG Tablet PO (08:39)
[2021-02-26] MEDS: Famotidine 20 MG Tablet 10 MG PO ×2 (08:39→23:00)
[2021-02-26] MEDS: guaiFENesin 1,200 MG Tablet 1200 MG PO ×2 (08:39→23:00)
[2021-02-26] MEDS: Furosemide 40 MG Tablet PO (08:39)
[2021-02-26] MEDS: Clopidogrel Bisulfate 75 MG Tablet PO (08:39)
[2021-02-26] MEDS: Potassium Chloride Oral Tablet 10 MEQ PO (08:40)
[2021-02-26] MEDS: glipiZIDE 10 MG Tablet PO ×2 (08:40→17:02)
[2021-02-26] MEDS: Tolterodine Tartrate 2 MG CAP.SA PO (08:40)
[2021-02-26] MEDS: Aspirin 81 MG TAB.CHEW PO (08:40)
[2021-02-26] MEDS: dexAMETHasone 4 MG Tablet 6 MG PO (08:40)
[2021-02-26] MEDS: Loratadine 10 MG Tablet PO (08:40)
[2021-02-26 12:16] LABS: Bedside Glucose 276 mg/dL (70-110)
--- NOTE | 2021-02-26 12:59 | PN.HOSP_ITS ---
Subjective Subjective Patient seen and examined. He had no complaints. Patient has been weaned down to 3 L of oxygen and is doing much better. He has otherwise been hemodynamically stable. Review of systems otherwise negative. Objective Data Objective Data Vital Signs: Vital Signs Temp Pulse Resp BP Pulse Ox 98.1 F 79 16 115/76 95 02/26/21 12:00 02/26/21 12:00 02/26/21 12:00 02/26/21 12:00 02/26/21 12:00 Oxygen Flow Rate (L/min) [ 4 AMBULATING with Oxygen #2] Oxygen Flow Rate (L/min) [ 3 AMBULATING with Oxygen #1] Oxygen Flow Rate (L/min) [At 3 REST with Oxygen] Oxygen Flow Rate (L/min) 3 Oxygen Delivery Method Nasal Cannula Weight: 227 lb 8.273 oz Body Mass Index (BMI) 37.7 Intake & Output: Intake and Output for Last 24 Hours 02/24/21 02/25/21 02/26/21 23:59 23:59 23:59 Intake Total 345 / 345 735 / 735 540 / 540 Output Total 2004 400 / 750 1075 / 1075 Balance -1660 / -1660 335 / -15 -535 / -535 Lab / Micro Data Result Diagrams: 02/25/21 06:50 02/25/21 06:50 Labs: Laboratory Results - last 24 hr 02/25/21 17:19: POC Glucose 401 H 02/25/21 23:01: POC Glucose 311 H 02/26/21 06:50: POC Glucose 169 H 02/26/21 11:56: POC Glucose 276 H Micro: Microbiology 02/24/21 22:00 Sputum, Expectorated/Coughed Gram Stain - Final 02/24/21 22:00 Sputum, Expectorated/Coughed Respiratory Culture - Preliminary Appears to be normal respiratory peggy. Further studies to follow. 02/19/21 05:50 Urine, Clean Catch Streptococcus pneumoniae Antigen (M - Final 02/19/21 05:50 Urine, Clean Catch Legionella Antigen - Final Physical Exam Const alert, oriented x3 and no apparent distress Exam Limitations: no limitations Nutritional Appearance: obese HEENT head/scalp atraumatic and moist oral mucous membranes Head and Scalp: normocephalic Eyes PERRL, EOMs intact bilaterally and conjunctivae normal Neck no lymphadenopathy Resp Resp Narrative: Diminished breath sounds bibasilarly. No wheezes or crackles. Now on 3 L of oxygen. Cardio S1 normal heart sound, S2 normal heart sound and no murmurs Cardio Narrative: afib, rate controlled. GI normal to inspection, nondistended, normoactive bowel sounds, soft to palpation and non-tender Extremity normal to inspection, full ROM and no clubbing, cyanosis or edema Skin no rashes or lesions noted Neuro oriented x3 and CN's II-XII intact bilaterally Sensorium / Orientation: awake and alert Psych affect normal Assessment & Plan Assessment/Plan (1) COVID-19: (2) Acute respiratory failure with hypoxia: PLAN: #Acute hypoxic respiratory failure due to COVID 19 pneumonia * now down to 3L of oxygen by nasal canula. * On dexamethasone. Not a candidate for remdesivir. * pulmonology on board * ID also on board; patient on baricitinib. * Titrate oxygen to maintain saturation above 90%. Breathing treatments with bronchodilators. * #Acute exacerbation of heart failure with preserved ejection fraction * Known EF is 50%. Now on PO lasix. * On aspirin, Brilinta and statins as well as metoprolol * #A. fib * on metoprolol 100mg bid. IV lopressor prn * IV Lopressor as needed. * #Elevated D-dimer * D-dimer was 1.8 on admission. * CTA done was negative for PE. * #?CKD stage 3A * Creatinine is down ~ 1.87 * I do suspect the patient may have some underlying CKD but I am not sure what stage it is as his last creatinine in our records was from June 2015 which was 1.05. We will continue monitoring and see. * Continue trending creatinine. * #Type 2 diabetes mellitus: On Lantus 50 units daily, glipizide. Insulin sliding scale. Accu-Cheks AC at bedtime. #Hypertension: On metoprolol and losartan. Losartan held on account of elevated Cr #Hypothyroidism: On Synthroid #Parkinson's disease:stable. On levodopa/carbidopa DVT prophylaxis: lovenox 40mg bid sc Disposition: Anticipate that patient will be able to be discharged home over the next 24 to 48 hours. Charges/Coding Visit Charges Inpatient E&M: 74089 Subs Hosp L2
[2021-02-26 17:15] LABS: Bedside Glucose 355 mg/dL (70-110)
[2021-02-26] MEDS: Tamsulosin HCl 0.4 MG Capsule 0.8 MG PO (23:00)
[2021-02-26] MEDS: CARBIDOPA/LEVODOPA CR 50/200 Tablet PO (23:00)
[2021-02-26] MEDS: 0.9% Saline Lock 10 ML Syringe IV (23:00)
[2021-02-26 23:56] LABS: Bedside Glucose 294 mg/dL (70-110)
[2021-02-27] VITALS (15 sets, daily range): BP systolic 106–129; BP diastolic 61–89; PULSE 83–109; RESP 14–24; TEMP 36.3–36.8; O2SAT 91–97
--- NOTE | 2021-02-27 01:53 | CPS ---
Increased pt.'s rate on BiPAP to 14, due to pt.'s respirations slowing down as low as 12 at times.
[2021-02-27] MEDS: Levothyroxine 100 MCG Tablet 200 MCG PO (06:39)
[2021-02-27] MEDS: Insulin Lispro 100 UNIT/ML INSULN.PEN SC ×4 (06:39→19:52)
[2021-02-27 06:56] LABS: Bedside Glucose 275 mg/dL (70-110)
[2021-02-27] MEDS: Enoxaparin 30 MG/0.3 ML Syringe SC ×2 (09:08→19:50)
[2021-02-27] MEDS: Famotidine 20 MG Tablet 10 MG PO ×2 (09:08→19:51)
[2021-02-27] MEDS: dexAMETHasone 4 MG Tablet 6 MG PO (09:09)
[2021-02-27] MEDS: Potassium Chloride Oral Tablet 10 MEQ PO (09:09)
[2021-02-27] MEDS: Furosemide 40 MG Tablet PO (09:09)
[2021-02-27] MEDS: guaiFENesin 1,200 MG Tablet 1200 MG PO ×2 (09:09→19:51)
[2021-02-27] MEDS: Clopidogrel Bisulfate 75 MG Tablet PO (09:09)
[2021-02-27] MEDS: Tolterodine Tartrate 2 MG CAP.SA PO (09:09)
[2021-02-27] MEDS: Metoprolol Tartrate 100 MG Tablet PO ×2 (09:09→19:51)
[2021-02-27] MEDS: Sertraline 50 MG Tablet PO (09:10)
[2021-02-27] MEDS: Aspirin 81 MG TAB.CHEW PO (09:10)
[2021-02-27] MEDS: glipiZIDE 10 MG Tablet PO ×2 (09:10→16:50)
[2021-02-27] MEDS: Loratadine 10 MG Tablet PO (09:10)
--- NOTE | 2021-02-27 11:31 | PCM.PN.HOSP ---
Subjective Subjective Doing well, maintaining oxygen saturations on 3 to 4 L nasal cannula. He is still needing BiPAP at night Objective Data Objective Data Vital Signs: Vital Signs Temp Pulse Resp BP Pulse Ox 98.0 F 96 18 106/61 92 02/27/21 09:16 02/27/21 09:16 02/27/21 09:16 02/27/21 09:16 02/27/21 09:16 Oxygen Flow Rate (L/min) [ 4 AMBULATING with Oxygen #2] Oxygen Flow Rate (L/min) [ 3 AMBULATING with Oxygen #1] Oxygen Flow Rate (L/min) [At 3 REST with Oxygen] Oxygen Flow Rate (L/min) 4 Oxygen Delivery Method Nasal Cannula Weight: 229 lb 11.547 oz Body Mass Index (BMI) 37.7 Intake & Output: Intake and Output for Last 24 Hours 02/26/21 02/27/21 02/28/21 03:59 03:59 03:59 Intake Total 735 / 735 1020 / 1020 Output Total 750 / 750 1650 / 1650 Balance -15 / -15 -630 / -630 Lab / Micro Data Result Diagrams: 02/25/21 06:50 02/25/21 06:50 Labs: Laboratory Results - last 24 hr 02/26/21 11:56: POC Glucose 276 H 02/26/21 17:00: POC Glucose 355 H 02/26/21 22:57: POC Glucose 294 H 02/27/21 06:37: POC Glucose 275 H Micro: Microbiology 02/24/21 22:00 Sputum, Expectorated/Coughed Gram Stain - Final 02/24/21 22:00 Sputum, Expectorated/Coughed Respiratory Culture - Final 02/19/21 05:50 Urine, Clean Catch Streptococcus pneumoniae Antigen (M - Final 02/19/21 05:50 Urine, Clean Catch Legionella Antigen - Final Physical Exam Const alert, oriented x3 and no apparent distress General Appearance: cooperative HEENT normocephalic and moist oral mucous membranes Eyes PERRL, EOMs intact bilaterally and conjunctivae normal Neck supple and no JVD Resp normal respiratory effort, no retractions and no use of accessory muscles Auscultation: diminished lung sounds; Negative for crackles, rales, rhonchi or wheezes Cardio regular rate, regular rhythm, S1 normal heart sound, S2 normal heart sound and no murmurs GI soft to palpation, non-tender and non-distended; Negative for hepatosplenomegaly Extremity no clubbing, cyanosis or edema Skin no rashes or lesions noted Neuro no focal motor deficits and no sensory deficits noted Psych affect normal Appearance: appropriate Assessment & Plan Assessment/Plan (1) COVID-19: (2) Acute respiratory failure with hypoxia: PLAN: 1. Acute hypoxic restaurant failure secondary to COVID-19 pneumonia/complicated by acute on chronic diastolic CHF ?Continue with Decadron, not a candidate for remdesivir ?Appreciate infectious disease input continue with baricitinib ?Yesterday had a home oxygen trial which demonstrated 4 L necessary for walking however he still on BiPAP at night and does not wear BiPAP at home. Therefore we will keep him here today and take off his BiPAP at night and see if he can maintain his oxygen saturations on just 4 L nasal cannula ?Continue with Lasix for his heart failure ?Had an elevated D-dimer on admission, CTA was negative for PE 2. A. fib/HTN/HLD/acute on chronic diastolic CHF ?Blood pressures are stable ?Continue with his home metoprolol, Lasix ?If necessary, can restart isosorbide and losartan ?Continue with aspirin and Plavix 3. DM2/possible RADHA on CKD ?Likely chronic kidney disease though unknown as to what stage secondary to no previous renal function test in the last 2 years ?Continue with 15 units of Lantus daily and his glipizide, continue sliding scale insulin ?Accu-Cheks AC at bedtime, make adjustments as necessary 4. Hypothyroidism ?Stable ?Continue with Synthroid 5. Parkinson's disease ?Stable ?Continue with Sinemet DVT: Lovenox Charges/Coding Visit Charges Inpatient E&M: 37672 Subs Hosp L2
[2021-02-27 12:21] LABS: Bedside Glucose 280 mg/dL (70-110)
[2021-02-27 17:05] LABS: Bedside Glucose 390 mg/dL (70-110)
[2021-02-27] MEDS: CARBIDOPA/LEVODOPA CR 50/200 Tablet PO (19:50)
[2021-02-27] MEDS: Tamsulosin HCl 0.4 MG Capsule 0.8 MG PO (19:51)
[2021-02-27 20:21] LABS: Bedside Glucose 424 mg/dL (70-110)
[2021-02-28] VITALS (15 sets, daily range): BP systolic 117–131; BP diastolic 79–99; PULSE 80–120; RESP 14–19; TEMP 35.7–36.9; O2SAT 87–97
--- NOTE | 2021-02-28 04:22 | CPS ---
pt on 4L nasal O2.
[2021-02-28 06:01] LABS: Bedside Glucose 276 mg/dL (70-110)
[2021-02-28] MEDS: Levothyroxine 100 MCG Tablet 200 MCG PO (06:23)
[2021-02-28] MEDS: Insulin Lispro 100 UNIT/ML INSULN.PEN SC ×4 (06:23→22:01)
[2021-02-28] MEDS: Enoxaparin 30 MG/0.3 ML Syringe SC ×2 (08:08→22:01)
[2021-02-28] MEDS: guaiFENesin 1,200 MG Tablet 1200 MG PO ×2 (08:08→22:03)
[2021-02-28] MEDS: Tolterodine Tartrate 2 MG CAP.SA PO (08:08)
[2021-02-28] MEDS: glipiZIDE 10 MG Tablet PO ×2 (08:08→16:24)
[2021-02-28] MEDS: dexAMETHasone 4 MG Tablet 6 MG PO (08:09)
[2021-02-28] MEDS: Aspirin 81 MG TAB.CHEW PO (08:09)
[2021-02-28] MEDS: Famotidine 20 MG Tablet 10 MG PO ×2 (08:09→22:03)
[2021-02-28] MEDS: Metoprolol Tartrate 100 MG Tablet PO ×2 (08:09→22:02)
[2021-02-28] MEDS: Potassium Chloride Oral Tablet 10 MEQ PO (08:09)
[2021-02-28] MEDS: Furosemide 40 MG Tablet PO (08:10)
[2021-02-28] MEDS: Loratadine 10 MG Tablet PO (08:10)
[2021-02-28] MEDS: Sertraline 50 MG Tablet PO (08:10)
[2021-02-28] MEDS: Clopidogrel Bisulfate 75 MG Tablet PO (08:11)
[2021-02-28 08:26] LABS: ALB/GLOB Ratio 0.5 RATIO (0.9-2.4); AST(SGOT) 43 U/L (15-37); Alanine Aminotransfer ALT/SGPT 20 U/L (16-61); Albumin, Serum 2.1 g/dL (3.2-5.0); Alkaline Phosphatase 162 U/L (45-117); Anion Gap 9 (5-15); BUN 50 mg/dL (7-18); BUN/Creat Ratio 33.3 RATIO (10-20); Calcium,Total 8.7 mg/dL (8.5-10.1); Chloride 103 mmol/L (98-107); EST Glomerular Filtration Rate 48 mL/min (>60); Est Glom Filt Rate - Afr Amer 59 mL/min (>60); Estimated Creatinine Clearance 37.81 ml/min; Globulin 4.4 g/dL (2.2-4.2); Glucose 219 mg/dL (74-106); Potassium 4.5 mmol/L (3.5-5.1); Protein, Total 6.5 g/dL (6.4-8.2); Sodium Level 135 mmol/L (136-145)
--- NOTE | 2021-02-28 10:45 | CASEMGMT ---
Addendum entered by Flores Shankar 02/28/21 15:04: Pt qualifies for 4L at rest and 6L w/ exertion, which is increased from day prior. Dr. Porras aware and states will keep pt one more night as this might be the effects from not being on the bipap at night. CM to follow. Rashid SZYMANSKI CM Original Note: This RN CM to room to discuss discharge plan with pt. Pt states no need for any further therapy at discharge but will likely need home oxygen. Pt states no preference for DME and would prefer to use his [facility] A[facility] for home oxygen set up. Sury SZYMANSKI to bedside to complete home oxygen testing at this time. Pt was able to be off bipap overnight on 4L nc. Rashid SZYMANSKI CM
[2021-02-28 12:35] LABS: Bedside Glucose 409 mg/dL (70-110)
--- NOTE | 2021-02-28 16:00 | PN.HOSP_ITS ---
Subjective Subjective Doing well today, he maintain his oxygen sats overnight with sleeping on 4 L however today when he ambulated he needed close to 6 L. The concern is that he may have lost some of the recruitment since he was wearing his BiPAP last night therefore we will continue to monitor and if he does worsen overnight tonight i nto tomorrow, waiting may need to reinstitute his BiPAP at night and keep him for a few more days Objective Data Objective Data Vital Signs: Vital Signs Temp Pulse Resp BP Pulse Ox 97.5 F L 93 19 H 117/79 94 02/28/21 15:04 02/28/21 15:04 02/28/21 15:04 02/28/21 15:04 02/28/21 15:04 Oxygen Flow Rate (L/min) [ 6 AMBULATING with Oxygen #2] Oxygen Flow Rate (L/min) [ 4 AMBULATING with Oxygen #1] Oxygen Flow Rate (L/min) [At 4 REST with Oxygen] Oxygen Flow Rate (L/min) 3 Oxygen Delivery Method Nasal Cannula Weight: 226 lb 13.69 oz Body Mass Index (BMI) 37.7 Intake & Output: Intake and Output for Last 24 Hours 02/27/21 02/28/21 03/01/21 03:59 03:59 03:59 Intake Total 1020 / 1020 1100 / 1100 480 / 480 Output Total 1650 / 1650 900 / 900 600 / 600 Balance -630 / -630 200 / 200 -120 / -120 Lab / Micro Data Result Diagrams: 02/25/21 06:50 02/28/21 07:03 Labs: Laboratory Results - last 24 hr 02/27/21 16:44: POC Glucose 390 H 02/27/21 19:47: POC Glucose 424 H 02/28/21 05:53: POC Glucose 276 H 02/28/21 07:03: Sodium 135 L, Potassium 4.5, Chloride 103, Carbon Dioxide 23.0, Anion Gap 9, BUN 50 H, Creatinine 1.50 H, Estim Creat Clear Calc 37.81, Est GFR (MDRD) Af Amer 59 L, Est GFR (MDRD) Non-Af 48 L, BUN/Creatinine Ratio 33.3 H, Glucose 219 H, Calcium 8.7, Total Bilirubin 0.60, AST 43 H, ALT 20, Alkaline Phosphatase 162 H, Total Protein 6.5, Albumin 2.1 L, Globulin 4.4 H, Albumin/Globulin Ratio 0.5 L 02/28/21 12:14: POC Glucose 409 H Micro: Microbiology 02/24/21 22:00 Sputum, Expectorated/Coughed Gram Stain - Final 02/24/21 22:00 Sputum, Expectorated/Coughed Respiratory Culture - Final 02/19/21 05:50 Urine, Clean Catch Streptococcus pneumoniae Antigen (M - Final 02/19/21 05:50 Urine, Clean Catch Legionella Antigen - Final Physical Exam Const alert, oriented x3 and no apparent distress General Appearance: cooperative HEENT normocephalic and moist oral mucous membranes Eyes PERRL, EOMs intact bilaterally and conjunctivae normal Neck supple and no JVD Resp normal respiratory effort, no retractions and no use of accessory muscles Auscultation: diminished lung sounds; Negative for crackles, rales, rhonchi or wheezes Cardio regular rate, regular rhythm, S1 normal heart sound, S2 normal heart sound and no murmurs GI soft to palpation, non-tender and non-distended; Negative for hepatosplenomegaly Extremity normal to inspection and no clubbing, cyanosis or edema Skin no rashes or lesions noted Neuro no focal motor deficits and no sensory deficits noted Psych affect normal Appearance: appropriate Assessment & Plan Assessment/Plan (1) COVID-19: (2) Acute respiratory failure with hypoxia: PLAN: 1. Acute hypoxic restaurant failure secondary to COVID-19 pneumonia/complicated by acute on chronic diastolic CHF ?Completed Decadron, not a candidate for remdesivir ?Appreciate infectious disease input continue with baricitinib ?Yesterday he will need 4 L to walk well with wearing BiPAP at night therefore last night we trialed him on just nasal cannula and this morning he needed 6 L with ambulation. We will continue to monitor and make adjustments as necessary ?Continue with Lasix for his heart failure ?Had an elevated D-dimer on admission, CTA was negative for PE 2. A. fib/HTN/HLD/acute on chronic diastolic CHF ?Blood pressures are stable ?Continue with his home metoprolol, Lasix ?If necessary, can restart isosorbide and losartan ?Continue with aspirin and Plavix 3. DM2/RADHA on CKD ?Likely chronic kidney disease though unknown as to what stage secondary to no previous renal function test in the last 2 years ?Renal function is improving indicating that he did have an RADHA on admission ?Continue with 15 units of Lantus daily and his glipizide, continue sliding scale insulin ?Accu-Cheks AC at bedtime, make adjustments as necessary 4. Hypothyroidism ?Stable ?Continue with Synthroid 5. Parkinson's disease ?Stable ?Continue with Sinemet DVT: Lovenox Charges/Coding Visit Charges Inpatient E&M: 08691 Subs Hosp L2
[2021-02-28 16:36] LABS: Bedside Glucose 414 mg/dL (70-110)
[2021-02-28] MEDS: Tamsulosin HCl 0.4 MG Capsule 0.8 MG PO (22:02)
[2021-02-28] MEDS: CARBIDOPA/LEVODOPA CR 50/200 Tablet PO (22:04)
[2021-02-28 22:56] LABS: Bedside Glucose 387 mg/dL (70-110)
[2021-03-01] VITALS (10 sets, daily range): BP systolic 100–143; BP diastolic 61–87; PULSE 80–113; RESP 14–18; TEMP 36.4–37.1; O2SAT 88–95
[2021-03-01] MEDS: Levothyroxine 100 MCG Tablet 200 MCG PO (05:07)
[2021-03-01 06:53] LABS: ALB/GLOB Ratio 0.5 RATIO (0.9-2.4); AST(SGOT) 65 U/L (15-37); Alanine Aminotransfer ALT/SGPT 25 U/L (16-61); Albumin, Serum 2.1 g/dL (3.2-5.0); Alkaline Phosphatase 182 U/L (45-117); Anion Gap 11 (5-15); BUN 57 mg/dL (7-18); BUN/Creat Ratio 33.9 RATIO (10-20); Calcium,Total 8.8 mg/dL (8.5-10.1); Chloride 105 mmol/L (98-107); Creatinine, Serum 1.68 mg/dL (0.70-1.30); EST Glomerular Filtration Rate 42 mL/min (>60); Est Glom Filt Rate - Afr Amer 51 mL/min (>60); Estimated Creatinine Clearance 33.76 ml/min; Globulin 4.3 g/dL (2.2-4.2); Glucose 203 mg/dL (74-106); Potassium 4.4 mmol/L (3.5-5.1); Protein, Total 6.4 g/dL (6.4-8.2); Sodium Level 137 mmol/L (136-145)
[2021-03-01] MEDS: Insulin Lispro 100 UNIT/ML INSULN.PEN 10 UNIT SC ×2 (08:03→12:13)
[2021-03-01] MEDS: Insulin Lispro 100 UNIT/ML INSULN.PEN SC ×2 (08:04→12:13)
[2021-03-01 08:15] LABS: Bedside Glucose 200 mg/dL (70-110)
[2021-03-01 09:13] LABS: Pathologist Review Reviewed
[2021-03-01] MEDS: Famotidine 20 MG Tablet 10 MG PO (09:42)
[2021-03-01] MEDS: Loratadine 10 MG Tablet PO (09:43)
[2021-03-01] MEDS: Potassium Chloride Oral Tablet 10 MEQ PO (09:43)
[2021-03-01] MEDS: Clopidogrel Bisulfate 75 MG Tablet PO (09:43)
[2021-03-01] MEDS: guaiFENesin 1,200 MG Tablet 1200 MG PO (09:43)
[2021-03-01] MEDS: Sertraline 50 MG Tablet PO (09:43)
[2021-03-01] MEDS: Metoprolol Tartrate 100 MG Tablet PO (09:43)
[2021-03-01] MEDS: glipiZIDE 10 MG Tablet PO (09:43)
[2021-03-01] MEDS: Aspirin 81 MG TAB.CHEW PO (09:43)
[2021-03-01] MEDS: Furosemide 40 MG Tablet PO (09:43)
[2021-03-01] MEDS: Tolterodine Tartrate 2 MG CAP.SA PO (09:43)
[2021-03-01] MEDS: Enoxaparin 30 MG/0.3 ML Syringe SC (09:44)
--- NOTE | 2021-03-01 11:12 | DCINST_ITS ---
Discharge Instructions Diet Discharge Diet: Low fat / Low cholesterol and 6 Cup Fluid Restriction Activity Discharge Activity: Return to Normal Activity Dressing / Incision Call your doctor if you observe: Fever of 101 or Higher, Shortness of breath, Dizziness, Fainting spells, Swelling in the ankles, Chest pain and Increased palpitations (irregular heartbeat) Follow Up Care Test Results: Test results from this visit will be discussed in further detail at your follow-up appointment, if applicable. Discharge Plan Admission Admit Date/Time: 02/18/21 20:35 Attending Provider: Jorge L Porras Primary Care Provider: Kobi Adair Consulting Providers: William Feliz ; Vinh Hernandez ; Quinn Llanes ; Jannet Olea [employer] WINDOW [employer]INTER Instructions Additional Instructions / Restrictions: Follow-up with your PCP in 3 to 5 days to obtain a BMP and monitor your renal function. Discharge Orders/Prescriptions Prescriptions: Continued losartan 50 MG tablet 100 mg PO DAILY RF: 0 atorvastatin 40 MG tablet 40 mg PO QHS RF: 0 carbidopa-levodopa [Sinemet CR] 1 EACH tablet extended release 1 ea PO QHS RF: 0 isosorbide mononitrate 30 MG tablet 30 mg PO DAILY RF: 0 clopidogrel 75 MG tablet 75 mg PO DAILY RF: 0 metoprolol tartrate 50 MG tablet 50 mg PO DAILY RF: 0 nitroglycerin 0.4 MG tablet 0.4 mg sublingual Q5M PRN (Reason: Chest Pain) RF: 0 aspirin 81 MG tablet,chewable 81 mg PO DAILY RF: 0 levothyroxine [Levoxyl] 200 MCG tablet 200 mcg PO DAILY RF: 0 potassium chloride 10 MEQ tablet 10 meq PO DAILY RF: 0 sertraline 50 MG tablet 50 mg PO DAILY RF: 0 sitagliptin [Januvia] 100 MG tablet 100 mg PO DAILY RF: 0 tamsulosin 0.4 MG capsule 0.8 mg PO QHS RF: 0 loratadine [Allergy Relief (loratadine)] 10 MG tablet 10 mg PO DAILY RF: 0 Ozempic 0.25 mg or 0.5 mg(2 mg/1.5 mL) Pen Injector 0.5 mg SUBCUT QWEEK RF: 0 famotidine 10 mg Tablet 10 mg PO BID RF: 0 glipizide 10 mg Tablet 10 mg PO BID RF: 0 furosemide 20 mg tablet 20 mg PO BID RF: 0 multivitamin with iron-mineral Tablet 1 tab PO DAILY RF: 0 trospium 20 mg Tablet 20 mg PO BID RF: 0 insulin glargine 100 unit/mL Cartridge 40 unit SUBCUT DAILY RF: 0 magnesium oxide 400 MG tablet 420 mg PO DAILY RF: 0 Discontinued benzonatate 100 MG capsule 200 mg PO TID PRN PRN (Reason: Cough) Qty: 20 RF: 0 prednisone 50 mg tablet 50 mg PO DAILY RF: 0 levofloxacin 500 mg tablet 500 mg PO DAILY RF: 0 Referrals / Follow Up: Kobi Adair MD [Primary Care Provider] - Within 1 Week Disposition Disposition (needs filled in before D/C Order can be placed): Home, Self Care
--- NOTE | 2021-03-01 12:23 | CASEMGMT ---
STEPHON RUVALCABA NOTE: Home O2 ambulatory testing completed. Pt requiring O2 @ 2l/m via n/c continuously. Script obtained from Dr Porras and faxed to [facility]. TC to them and they were notified of need for portable O2 tank prior to discharge which has been delivered now. STEPHON RUVALCABA to room to talk w/pt. Pt provided w/portable O2 tank. Pt made aware of need to call [facility] once he arrives home so concentrator and further portable tanks can be delivered. Pt voices understanding. Kath WRIGHTN STEPHON CM
[2021-03-01 13:05] LABS: Bedside Glucose 256 mg/dL (70-110)
--- NOTE | 2021-03-01 13:47 | DS.PCM_ITS ---
Providers Date of Admission: 02/18/21 Primary Care Physician: Dr. Kobi Adari MD Consultations 02/21/21 13:16 Consult: Infectious Disease Routine Consulting Provider: William Feliz Reason for Consult: acute hypoxic respiratory failure due to covid EMERGENT Consult: No Notified: Yes Date Notified: 02/21/21 Time Notified: 13:16 Method of Notification: Text 02/21/21 13:18 Consult: Gin Operator / Pulmonary Medicine Routine Consulting Provider: Pulmonary Medicine gera [place] Reason for Consult: acute hypoxic resp failure due to covid EMERGENT Consult: No Notified: Yes Date Notified: 02/21/21 Time Notified: 13:18 Method of Notification: Text Reason For Visit: ACUTE EXACERBTION OF HEART FAILURE WITH PRESERVED Diagnosis Discharge Diagnosis (1) COVID-19: Status: Acute Code(s): U07.1 - COVID-19 (2) Acute respiratory failure with hypoxia: Status: Acute Code(s): J96.01 - Acute respiratory failure with hypoxia Medications at Discharge Home Medications aspirin 81 mg PO DAILY 03/10/13 atorvastatin 40 mg PO QHS 03/10/13 carbidopa-levodopa [Sinemet CR] 1 ea PO QHS 03/10/13 clopidogrel 75 mg PO DAILY 03/10/13 isosorbide mononitrate 30 mg PO DAILY 03/10/13 levothyroxine [Levoxyl] 200 mcg PO DAILY 03/10/13 losartan 100 mg PO DAILY 03/10/13 metoprolol tartrate 50 mg PO DAILY 03/10/13 nitroglycerin 0.4 mg SUBLINGUAL Q5M PRN 03/10/13 potassium chloride 10 meq PO DAILY 03/10/13 Januvia 100 mg PO DAILY 04/14/15 sertraline 50 mg PO DAILY 04/14/15 loratadine [Allergy Relief (loratadine)] 10 mg PO DAILY 07/06/15 tamsulosin 0.8 mg PO QHS 07/06/15 Ozempic 0.5 mg SUBCUT QWEEK 02/18/21 famotidine 10 mg PO BID 02/18/21 furosemide 20 mg PO BID 02/18/21 glipizide 10 mg PO BID 02/18/21 insulin glargine 40 unit SUBCUT DAILY 02/18/21 magnesium oxide 420 mg PO DAILY 02/18/21 multivitamin with iron-mineral 1 tab PO DAILY 02/18/21 trospium 20 mg PO BID 02/18/21 Hospital Course Operations None Procedures 2-D Echocardiogram Summary of Care Provided Minutes Spent on Discharge: 40 Hospital Course: Per HPI: KIMBERLY DUGAN, is a 76 M with a significant history of heart failure preserved ejection fraction; restless leg syndrome; BPH who presents to the located within [facility] department with 10-day history of progressively worsening shortness of breath. Patient was diagnosed with Covid about 10 days ago and was started on Levaquin and prednisone 50 mg daily. He reports a productive cough. He reports anorexia. He reports weakness and fatigue. He reports myalgia. Report of fever of temperature of about 100 Fahrenheit the day before presentation. He reports chills. He denies orthopnea proximal nocturnal dyspnea. At baseline he uses CPAP at home. When paramedics got to the patient's house patient's oxygen saturation was in the 70s. Patient was initially placed on nonrebreather mask at the emergency department and later on weaned to 4 L nasal cannula. Hospital Course: 1. Acute hypoxic respiratory failure secondary to COVID-19 pneumon ia/complicated by acute on chronic diastolic CHF ?Completed Decadron, not a candidate for remdesivir ?Appreciate infectious disease input continue with baricitinib ?Yesterday he will need 4 L to walk well with wearing BiPAP at night therefore last night we trialed him on just nasal cannula and this morning he needed 6 L with ambulation. We will continue to monitor and make adjustments as necessary ?Continue with Lasix for his heart failure ?Had an elevated D-dimer on admission, CTA was negative for PE 03/01/2021: Doing well today, was maintaining his oxygen saturations overnight o n 3 L nasal cannula and today on ambulation he only needed 2 to 3 L with ambulation as well. I discussed with him the possibility of going home today and he expressed understanding of the risk and benefits of going home today. I do recommend he follow-up with his PCP on discharge for evaluation. He is outside the quarantine time for Covid and he did complete 10 days of Decadron 8 out of the 14 days for baricitinib. 2. A. fib/HTN/HLD/acute on chronic diastolic CHF ?Blood pressures are stable ?Continue with his home metoprolol, Lasix ?Can restart isosorbide and losartan on this charge ?Continue with aspirin and Plavix 3. DM2/RADHA on CKD ?Likely chronic kidney disease though unknown as to what stage secondary to no previous renal function test in the last 2 years ?Renal function is improving indicating that he did have an RADHA on admission ?Continue with his home blood sugar medications on discharge ?Accu-Cheks AC at bedtime, make adjustments as necessary 4. Hypothyroidism ?Stable ?Continue with Synthroid 5. Parkinson's disease ?Stable ?Continue with Sinemet Physical Exam Const alert, oriented x3 and no apparent distress General Appearance: cooperative HEENT normocephalic and moist oral mucous membranes Eyes PERRL, EOMs intact bilaterally and conjunctivae normal Neck supple and no JVD Resp normal respiratory effort, no retractions and no use of accessory muscles Auscultation: diminished lung sounds; Negative for crackles, rales, rhonchi or wheezes Cardio regular rate, regular rhythm, S1 normal heart sound, S2 normal heart sound and no murmurs GI soft to palpation, non-tender and non-distended; Negative for hepatosplenomegaly Extremity normal to inspection and no clubbing, cyanosis or edema Skin no rashes or lesions noted Neuro no focal motor deficits and no sensory deficits noted Psych affect normal Appearance: appropriate Weight / BMI Weight Weight: 228 lb 6.382 oz Body Mass Index (BMI) 37.7 ABG / Lab / Microbiology Data Result Diagrams: 02/25/21 06:50 03/01/21 05:32 Laboratory: Laboratory Results - last 24 hr 02/25/21 06:50: Diff Path Review Reviewed 02/28/21 16:23: POC Glucose 414 H 02/28/21 22:00: POC Glucose 387 H 03/01/21 05:32: Sodium 137, Potassium 4.4, Chloride 105, Carbon Dioxide 21.0, Anion Gap 11, BUN 57 H, Creatinine 1.68 H, Estim Creat Clear Calc 33.76, Est GFR (MDRD) Af Amer 51 L, Est GFR (MDRD) Non-Af 42 L, BUN/Creatinine Ratio 33.9 H, Glucose 203 H, Calcium 8.8, Total Bilirubin 0.60, AST 65 H, ALT 25, Alkaline Phosphatase 182 H, Total Protein 6.4, Albumin 2.1 L, Globulin 4.3 H, Albumin/Globulin Ratio 0.5 L 03/01/21 08:03: POC Glucose 200 H 03/01/21 12:11: POC Glucose 256 H Microbiology: Microbiology 02/24/21 22:00 Sputum, Expectorated/Coughed Gram Stain - Final 02/24/21 22:00 Sputum, Expectorated/Coughed Respiratory Culture - Final 02/19/21 05:50 Urine, Clean Catch Streptococcus pneumoniae Antigen (M - Final 02/19/21 05:50 Urine, Clean Catch Legionella Antigen - Final D/C Instructions Discharge Diet: Low fat / Low cholesterol and 6 Cup Fluid Restriction Call your doctor if you observe: Fever of 101 or Higher, Shortness of breath, Dizziness, Fainting spells, Swelling in the ankles, Chest pain and Increased palpitations (irregular heartbeat) Meaningful Use Info Meaningful Use Diagnoses (Choose all that apply): None applicable Discharge Plan Admission Admit Date/Time: 02/18/21 20:35 Attending Provider: Jorge L Porras Primary Care Provider: Kobi Adair Consulting Providers: William Feliz ; Vinh Hernandez ; Quinn Llanes ; Jannet Olea RETORT SETTER Instructions Additional Instructions / Restrictions: Follow-up with your PCP in 3 to 5 days to obtain a BMP and monitor your renal function. Discharge Orders/Prescriptions Prescriptions: Continued losartan 50 MG tablet 100 mg PO DAILY RF: 0 atorvastatin 40 MG tablet 40 mg PO QHS RF: 0 carbidopa-levodopa [Sinemet CR] 1 EACH tablet extended release 1 ea PO QHS RF: 0 isosorbide mononitrate 30 MG tablet 30 mg PO DAILY RF: 0 clopidogrel 75 MG tablet 75 mg PO DAILY RF: 0 metoprolol tartrate 50 MG tablet 50 mg PO DAILY RF: 0 nitroglycerin 0.4 MG tablet 0.4 mg sublingual Q5M PRN (Reason: Chest Pain) RF: 0 aspirin 81 MG tablet,chewable 81 mg PO DAILY RF: 0 levothyroxine [Levoxyl] 200 MCG tablet 200 mcg PO DAILY RF: 0 potassium chloride 10 MEQ tablet 10 meq PO DAILY RF: 0 sertraline 50 MG tablet 50 mg PO DAILY RF: 0 Januvia 100 MG tablet 100 mg PO DAILY RF: 0 tamsulosin 0.4 MG capsule 0.8 mg PO QHS RF: 0 loratadine [Allergy Relief (loratadine)] 10 MG tablet 10 mg PO DAILY RF: 0 Ozempic 0.25 mg or 0.5 mg(2 mg/1.5 mL) Pen Injector 0.5 mg SUBCUT QWEEK RF: 0 famotidine 10 mg Tablet 10 mg PO BID RF: 0 glipizide 10 mg Tablet 10 mg PO BID RF: 0 furosemide 20 mg tablet 20 mg PO BID RF: 0 multivitamin with iron-mineral Tablet 1 tab PO DAILY RF: 0 trospium 20 mg Tablet 20 mg PO BID RF: 0 insulin glargine 100 unit/mL Cartridge 40 unit SUBCUT DAILY RF: 0 magnesium oxide 400 MG tablet 420 mg PO DAILY RF: 0 Discontinued benzonatate 100 MG capsule 200 mg PO TID PRN PRN (Reason: Cough) Qty: 20 RF: 0 prednisone 50 mg tablet 50 mg PO DAILY RF: 0 levofloxacin 500 mg tablet 500 mg PO DAILY RF: 0 Referrals / Follow Up: Kobi Adair MD [Primary Care Provider] - Within 1 Week (Please call to setup an appointment. ) Disposition Disposition (needs filled in before D/C Order can be placed): Home, Self Care Charges/Coding Visit Charges Inpatient E&M: 35284 Disch Hosp
== END 2021-03-01 14:56 | disposition home or self-care (01) | DRG 177 ==
LOC: ED 19:53 → PCU 21:15
PROVIDERS: Internal Medicine; Internal Medicine Infectious Disease; Student in an Organized Health Care Education/Training Program; Admitting Provider Hospitalist; Emergency Provider Emergency Medicine; PCP Family Medicine; Visit Provider Family Medicine
DX: U07.1 COVID-19 (principal); J12.82 Pneumonia due to coronavirus disease 2019; I50.33 Acute on chronic diastolic (congestive) heart failure; J96.01 Acute respiratory failure with hypoxia; I13.0 Hypertensive heart and chronic kidney disease with heart failure and stage 1 through stage 4 chronic kidney disease, or unspecified chronic kidney disease; N17.9 Acute kidney failure, unspecified; E11.22 Type 2 diabetes mellitus with diabetic chronic kidney disease; N18.31 Chronic kidney disease, stage 3a; G20 Parkinson's disease; I48.91 Unspecified atrial fibrillation; E11.65 Type 2 diabetes mellitus with hyperglycemia; I25.10 Atherosclerotic heart disease of native coronary artery without angina pectoris; E78.2 Mixed hyperlipidemia; E03.9 Hypothyroidism, unspecified; G25.81 Restless legs syndrome; N40.0 Benign prostatic hyperplasia without lower urinary tract symptoms; G47.33 Obstructive sleep apnea (adult) (pediatric); E66.01 Morbid (severe) obesity due to excess calories; Z68.39 Body mass index [BMI] 39.0-39.9, adult; Z79.4 Long term (current) use of insulin; Z79.02 Long term (current) use of antithrombotics/antiplatelets; Z79.82 Long term (current) use of aspirin; Z79.890 Hormone replacement therapy; Z79.899 Other long term (current) drug therapy; I25.2 Old myocardial infarction; Z85.850 Personal history of malignant neoplasm of thyroid; Z87.891 Personal history of nicotine dependence; Z95.1 Presence of aortocoronary bypass graft; Z95.5 Presence of coronary angioplasty implant and graft
CPT/HCPCS: 36415; 71045; 71275; 80048; 80053; 80076; 82962; 83880; 84145; 84484; 85025; 85379; 85610; 86140; 87070; 87205; 87449; 87635; 93005; 93306; 94002; 94003; 94668; 94762; 97110; 97162; 97166; 97530; 97535; 97802; 99251; 99285; Q9967; U0005; A4216; G0463; J1940; U0003

== ENCOUNTER 2021-05-19 18:37 | Observation (INO) | payer MEDICARE, OTHER, SELFPAY ==
[2021-05-19 18:38] VITALS: BP 130/81; PULSE 94; RESP 18; TEMP 36.3; O2SAT 94; BMI 38.7
--- NOTE | 2021-05-19 18:52 | EKG12_ITS ---
Test Reason : CP Blood Pressure : / mmHG Vent. Rate : 095 BPM Atrial Rate : 095 BPM P-R Int : 162 ms QRS Dur : 086 ms QT Int : 358 ms P-R-T Axes : 027 006 047 degrees QTc Int : 449 ms Normal sinus rhythm Inferior infarct , age undetermined, cannot be excluded Abnormal ECG Confirmed by ANGELICA ELAM, DESTINEE ([id number]), editor trade journal AASHISH SILVA ([id number]) on 05/23/2021 10:02:15 AM Referred By: VINICIO Confirmed By:DESTINEE DOMINGUEZ MD
--- NOTE | 2021-05-19 19:14 | RAD_ITS ---
STUDY: X-RAY CHEST REASON FOR EXAM: Male, 76 years old. CHEST PAIN chest pain TECHNIQUE: XR Chest 1 View COMPARISON: 02.21.21 FINDINGS: There is no demonstrated pleural abnormality. There are multiple median sternotomy wires. Normal size heart. Normal mediastinum and polo. Normal visualized pulmonary arteries. There is atherosclerotic calcification of the aortic arch with tortuosity. There are diffuse degenerative changes of the visualized thoracic spine. There is degenerative osteoarthritis of the bilateral shoulders. There is no demonstrated abnormality of the visualized soft tissue structures of the upper abdomen. RAD/Chest 1 View (Portable) IMPRESSION: There are no acute findings. Electronically Signed: Keo David MD at 19:33 EST ,
[2021-05-19 19:25] VITALS: BP 100/75; PULSE 97; RESP 25
[2021-05-19 19:25] LABS: Absolute Lymphocyte Count 1.89 X10^3/uL (0.83-4.51); Basophil# 0.05 X10^3/uL; Basophil% 0.7 % (0-1); Eosinophil# 0.31 X10^3/uL; Eosinophils% 4.4 % (0-5); Hematocrit 39.8 % (40-54); Hemoglobin 12.9 g/dL (13.0-16.5); Lymphocyte # 1.89 X10^3/ul (0.83-4.51); Lymphocyte % 26.8 % (19-41); Mean Corp Hgb Conc 32.4 g/dL (32-36); Mean Corpuscular Volume 92.6 fL (80-94); Mean Platelet Vol. 10.5 fl (6.2-12.0); Monocyte# 0.74 X10^3/uL; Monocyte% 10.5 % (0-10); NRBC Flagged by Analyzer 0 % (0-5); Neutrophil # 4.02 X10^3/uL (2.7-7.7); Neutrophil % 57.2 % (47-70); Platelet Count 173 K/mm3 (150-450); RBC Distribution Width CV 14.2 % (11.6-14.6)
--- NOTE | 2021-05-19 19:54 | ED.VIS.CHEST ---
HPI History of Present Illness Chief Complaint: Chest Pain Informant: patient Onset/Context/Timing Onset: Today and Hours (1) Activity at onset: sudden Timing: Continuous Quality: Positive for Sharp Location: Substernal Worsened By: Nothing Relieved By: Nothing Associated Symptoms: Negative for Nausea, Vomiting, Diaphoresis, Dyspnea, Cough, Fever, Lightheadedness, Acid Reflux and Palpitations Narrative Narrative: Patient presents with chest pain that began approximately 1 hour prior to arrival. Patient states it began rather suddenly. Patient states it is over the substernal area and radiates into his back and then to both sides of his thoracic area. Patient describes his pain is sharp. Patient states nothing makes it worse and nothing makes it better. Patient denies any nausea or vomiting. Patient denies any diaphoresis. Patient denies any shortness of breath or cough. Patient denies any palpitations. Patient states his last stress test was approximately 4 years ago. Patient states this was done through the [facility]. CVD Risk Factors: Positive for Hypertension, Diabetes, Hypercholesterolemia and Family History 1' </=55; Negative for Smoking PE Risk Factors: Positive for Prior DVT or PE and Cancer; Negative for Recent Travel/Surgery and Recent Immobilization [facility] Medical History (Updated 05/20/21 @ 00:[address] Liliane Lowe MD) Allergic rhinitis BPH (benign prostatic hyperplasia) CHF (congestive heart failure) Chronic diastolic heart failure Coronary artery disease Depression Diabetes Essential hypertension GERD (gastroesophageal reflux disease) History of COVID-19 History of DVT (deep vein thrombosis) Hyperlipidemia Hypertensive heart disease with acute diastolic congestive heart failure Hypothyroid Insomnia Mixed hyperlipidemia Obesity ANABELL (obstructive sleep apnea) Proteinuria Restless leg syndrome Tubular adenoma of colon Vitamin D deficiency Home Medications aspirin 81 mg PO DAILY 03/10/13 [History Last Taken 05/02/18] atorvastatin 40 mg PO QHS 03/10/13 [History Last Taken 05/02/18] carbidopa-levodopa [Sinemet CR] 1 ea PO QHS 03/10/13 [History Last Taken 05/02/18] isosorbide mononitrate 30 mg PO DAILY 03/10/13 [History Last Taken 05/02/18] levothyroxine [Levoxyl] 225 mcg PO DAILY 03/10/13 [History Last Taken 05/02/18] losartan 100 mg PO DAILY 03/10/13 [History Last Taken 05/02/18] metoprolol tartrate 50 mg PO DAILY 03/10/13 [History Last Taken 05/02/18] nitroglycerin 0.4 mg SUBLINGUAL Q5M PRN 03/10/13 [History Last Taken 05/02/18] Januvia 100 mg PO DAILY 04/14/15 [History Last Taken 05/02/18] sertraline 50 mg PO DAILY 04/14/15 [History Last Taken 05/02/18] Ozempic 0.5 mg SUBCUT QWEEK 02/18/21 [History Last Taken Unknown] famotidine 10 mg PO BID 02/18/21 [History Last Taken Unknown] furosemide 20 mg PO BID 02/18/21 [History Last Taken Unknown] insulin glargine 45 unit SUBCUT DAILY 02/18/21 [History Last Taken Unknown] magnesium oxide 420 mg PO DAILY 02/18/21 [History Last Taken Unknown] multivitamin with iron-mineral 1 tab PO DAILY 02/18/21 [History Last Taken Unknown] trospium 20 mg PO BID 02/18/21 [History Last Taken Unknown] Allergy/AdvReac Type Severity Reaction Status Date / Time albuterol AdvReac Mild thrush Verified 05/19/21 18:40 ANESESTHIA Allergy Severe Other Uncoded 05/19/21 18:40 Family History (Updated 05/20/21 @ 00:[address] Liliane Lowe MD) Father CAD (coronary artery disease) Myocardial infarction Diabetes Heart disease Hypertension Brother Hypertension Diabetes Surgical History (Updated 05/20/21 @ 00:[address] Liliane Lowe MD) Hx of elbow surgery Hx of mitral valve repair S/P arthroscopic knee surgery S/P CABG x 4 S/P coronary artery stent placement S/P hemorrhoidectomy S/P thyroidectomy Social History (Updated 05/20/21 @ 00:[address] Liliane Lowe MD) household members: spouse Smoking Status: Former smoker quit date: 09/26/73 pack-years: 5 how long ago did patient quit smoking: Additional chew tobacco use history, quit 01/15/2007. alcohol intake: never substance use type: does not use ROS ROS ED Constitutional Constitutional ED: Denies chills or fever(s) Eyes Eyes: Denies blurry vision or change in vision ENT ENT ED: Denies rhinorrhea or sore throat Cardiovascular Cardiovascular: Reports as per HPI and chest pain; Denies palpitations Respiratory/Chest Respiratory/Chest: Denies cough or dyspnea Gastrointestinal Gastrointestinal: Denies abdominal pain, nausea or vomiting Genitourinary Genitourinary ED: Denies dysuria or hematuria Musculoskeletal Musculoskeletal: Reports back pain; Denies neck pain Integumentary Denies abscess or rash Neurologic Neurologic: Denies headache(s) or weakness Allergic/Immunologic Allergic/Immunologic ED: Denies mouth swelling or urticaria EXAM Physical Exam Const Vital Signs: 05/19/21 18:38 05/19/21 19:14 05/19/21 19:25 Temperature 97.3 F L Temperature Source Temporal Pulse Rate 94 97 Respiratory Rate 18 25 H Respiratory Effort Normal Blood Pressure 130/81 H 100/75 Blood Pressure Mean 97 83 Pulse Ox 94 Oxygen Delivery Method Room Air Room Air 05/19/21 20:34 05/19/21 22:56 Temperature Temperature Source Pulse Rate 102 H 101 H Respiratory Rate 18 17 Respiratory Effort Blood Pressure 120/77 159/93 H Blood Pressure Mean 91 115 Pulse Ox 94 Oxygen Delivery Method Room Air Room Air Positive well nourished, well developed and obese General Appearance ED: well developed Nutritional Appearance: obese HEENT normocephalic and atraumatic Eyes PERRL and EOMs intact bilaterally Neck supple and no JVD Chest Wall palpation of chest normal Resp normal respiratory effort and clear to auscultation bilaterally Effort and Inspection: Negative for respiratory distress Cardio regular rate, regular rhythm and no murmurs GI normal to inspection, nondistended, normoactive bowel sounds, soft to palpation, non-tender and non-distended Extremity normal to inspection General Extremety ED: Negative for edema or tenderness General Extremity: Negative for edema Neuro oriented x3, CN's II-XII intact bilaterally and no sensory deficits noted Sensorium / Orientation: awake and alert Motor Exam: strength 5/5 throughout Psych mental status grossly normal Heart Score History: Slightly/Non-Suspicious ECG: Nonspecific Repolarization Age: >/= 65 years Risk Factors: >/= 3 Risk Factors or History of CAD Troponin: </= Normal Limit Score: 5 MDM MDM MDM Narrative Medical decision making narrative: EKG was obtained. On my interpretation, it showed a normal sinus rhythm with a rate of 95. TX interval, QRS interval, and QTc intervals were all normal. [place] was normal. There are nonspecific ST-T wave changes. Portable 1 view chest x-ray was obtained. On my interpretation, lung ghosh are clear. There is normal cardiac silhouette. Bony thorax is normal. There is no acute process noted. Radiologist also interpreted the x-ray and agrees. CBC and basic metabolic profile were obtained. Creatinine was slightly elevated at 1.89 and BUN was 25. These are consistent with prior results. D-dimer was elevated at 2.68. Because of this, CTA of the chest was obtained. There is no evidence of pulmonary embolism. There is no aortic dissection noted. There is a 6.5 mm pulmonary nodule in the left upper lobe. Radiologist recommends repeat CT scan within 6 to 12 months. This was interpreted by the radiologist and reviewed by myself. Initial high-sensitivity troponin was normal at 11. 2-hour repeat high-sensitivity troponin was normal at 10. Patient is feeling better on reevaluation. Patient has a HEART score of 5. Since the patient has not had a stress test in the last 4 years, I recommended admission for observation for further cardiac evaluation. Patient is agreeable with this. Case was discussed with the hospitalist. She will admit the patient to her service. Patient understood and was agreeable with the plan. All questions were answered. Lab Data Attestation: I reviewed the patient's lab results. Labs: Laboratory Results - last 24 hr 05/19/21 05/19/21 05/19/21 19:10 19:10 19:10 WBC 7.0 RBC 4.30 L Hgb 12.9 L Hct 39.8 L MCV 92.6 MCH 30.0 MCHC 32.4 RDW Std Deviation 48.0 H RDW Coeff of Luther 14.2 Plt Count 173 MPV 10.5 Immature Gran % (Auto) 0.400 Neut % (Auto) 57.2 Lymph % (Auto) 26.8 [place] % (Auto) 10.5 H Eos % (Auto) 4.4 Baso % (Auto) 0.7 Absolute Neuts (auto) 4.0 Absolute Lymphs (auto) 1.89 Nucleated RBC % 0 D-Dimer Quant (PE/DVT) 2.68 H* Sodium 139 Potassium 4.1 Chloride 102 Carbon Dioxide 27.0 Anion Gap 10 BUN 25 H Creatinine 1.89 H Estim Creat Clear Calc 30.01 Est GFR (MDRD) Af Amer 45 L Est GFR (MDRD) Non-Af 37 L BUN/Creatinine Ratio 13.2 Glucose 235 H Calcium 9.0 Troponin I High Sens 11 05/19/21 21:13 WBC RBC Hgb Hct MCV MCH MCHC RDW Std Deviation RDW Coeff of [place] Plt Count MPV Immature Gran % (Auto) Neut % (Auto) Lymph % (Auto) [place] % (Auto) Eos % (Auto) Baso % (Auto) Absolute Neuts (auto) Absolute Lymphs (auto) Nucleated RBC % D-Dimer Quant (PE/DVT) Sodium Potassium Chloride Carbon Dioxide Anion Gap BUN Creatinine Estim Creat Clear Calc Est GFR (MDRD) Af Amer Est GFR (MDRD) Non-Af BUN/Creatinine Ratio Glucose Calcium Troponin I High Sens 10 Radiography Diagnostic Testing: Clinical Impression(s) from Imaging Studies Chest X-Ray 05/19/21 19:14 IMPRESSION: There are no acute findings. Electronically Signed: Keo David MD at 19:33 EST , Chest CTA 05/19/21 21:33 IMPRESSION: 1. No pulmonary embolus identified. 2. Atherosclerotic disease with no thoracic aortic aneurysm or dissection. 3. Bilateral lung scarring and atelectatic changes. 6.5 mm pulmonary nodule within left upper lobe. Recommend follow-up per Fleischner Society guidelines: Updated 2017 Fleischner Society guidelines for follow-up and management of pulmonary nodules: Single nodule: Nodule size = 6-8 mm In a low-risk patient: CT at 6-12 months, then consider CT at 18-24 months In a high-risk patient: CT at 6-12 months, then CT at 18-24 months Low risk patients include individuals with minimal or absent history of smoking and other known risk factors. High risk patients include individuals with a history of smoking or other known risk factors. 4. Stable small cyst versus hemangioma within dome of liver. Individualized dose optimization techniques were used for this CT. at 2254 Reported and signed by: Inder Perdue MD Electronically Signed: Inder Perdue MD at 22:53 EST , EKG Initial EKG: Attestation: I personally reviewed and interpreted this EKG as follows: Interpretation: Sinus Rhythm (95) and Non-Specific ST Changes Prior EKG tracings: available for review Prior: Unchanged (02/18/2021) Treatment and Re-Evaluation Vital Sign Attestation:: Vital signs were reviewed prior to admission. They are stable. Discharge Plan Dx/Rx/DC Orders Clinical Impression: Chest pain Disposition Disposition: Acute Care Hospital [facility]
[2021-05-19 19:57] LABS: Anion Gap 10 (5-15); BUN 25 mg/dL (7-18); BUN/Creat Ratio 13.2 RATIO (10-20); Chloride 102 mmol/L (98-107); Creatinine, Serum 1.89 mg/dL (0.70-1.30); EST Glomerular Filtration Rate 37 mL/min (>60); Est Glom Filt Rate - Afr Amer 45 mL/min (>60); Estimated Creatinine Clearance 30.01 ml/min; Glucose 235 mg/dL (74-106); Potassium 4.1 mmol/L (3.5-5.1); Sodium Level 139 mmol/L (136-145); Troponin-I HS 11 pg/mL (3.0-78.0)
[2021-05-19 20:34] VITALS: BP 120/77; PULSE 102; RESP 18
[2021-05-19 20:54] LABS: D-Dimer Quantitative (DVT/PE) 2.68 FEU/ug/m (0.27-0.49)
--- NOTE | 2021-05-19 21:33 | CT_ITS ---
HISTORY: Elevated D-dimer, chest pain radiating to back, history of hypertension, CHF and diabetes. EXAMINATION: CTA Chest W/ Contrast Injection (and W/O Contrast Images if performed) TECHNIQUE: Helically acquired images were obtained of the chest following IV contrast as per pulmonary angiogram protocol with MIP and MPR reconstructions. A radiation dose optimization technique was used for this scan. IV Contrast dosage and agent: 100mL [id number] COMPARISON: CTA chest from 02/22/21 FINDINGS: LUNGS, PLEURA AND LARGE AIRWAYS: Bilateral dependent and basilar atelectatic changes. Scattered linear scarring. 6.5 mm subpleural nodule within lateral left lung apex (partially obscured on prior exam measuring grossly 5 mm). Scattered punctate granulomatous calcifications within lungs. No significant pleural effusion. No pneumothorax. PULMONARY ARTERIES: No pulmonary arterial filling defects identified. AORTA AND GREAT VESSELS: No thoracic aortic aneurysm or dissection. Great vessels are patent. Mild atherosclerotic calcifications. HEART AND PERICARDIUM: Heart size within normal limits. No significant pericardial effusion. Status post CABG. Coronary arterial calcifications noted. MEDIASTINUM AND ANYI: No pathologically enlarged mediastinal or hilar lymph nodes. Esophagus is unremarkable. THYROID: Status post thyroidectomy. UPPER ABDOMEN: Stable 1 cm low-attenuation lesion within dome of liver. BONES: No acute osseous abnormality. Previous sternotomy. SOFT TISSUES: No acute findings. CT/CTA Chest W/WO Contrast IMPRESSION: 1. No pulmonary embolus identified. 2. Atherosclerotic disease with no thoracic aortic aneurysm or dissection. 3. Bilateral lung scarring and atelectatic changes. 6.5 mm pulmonary nodule within left upper lobe. Recommend follow-up per Fleischner Society guidelines: Updated 2017 Fleischner Society guidelines for follow-up and management of pulmonary nodules: Single nodule: Nodule size = 6-8 mm In a low-risk patient: CT at 6-12 months, then consider CT at 18-24 months In a high-risk patient: CT at 6-12 months, then CT at 18-24 months Low risk patients include individuals with minimal or absent history of smoking and other known risk factors. High risk patients include individuals with a history of smoking or other known risk factors. 4. Stable small cyst versus hemangioma within dome of liver. Individualized dose optimization techniques were used for this CT. at 2254 Reported and signed by: Inder Perdue MD Electronically Signed: Inder Perdue MD at 22:53 EST ,
[2021-05-19 21:38] LABS: Troponin-I HS 10 pg/mL (3.0-78.0)
[2021-05-19 22:56] VITALS: BP 159/93; PULSE 101; RESP 17; O2SAT 94
--- NOTE | 2021-05-19 23:46 | HP.PCM.HOS_ITS ---
HPI - General General Date of Admission: 05/19/21 Date of Service: 05/19/21 Chief Complaint: Chest pain HPI Narrative The patient is a 76 y/o M w/ PMHx: Valvular Heart Disease, BPH, CKD stage III unclear subtype, Chronic Diastolic CHF, HTN, HLD, CAD s/p CABG x 4 and PCI, Diabetes mellitus type II, Hypothyroidism, Anxiety and Depression, RLS, ANABELL who presents to the [facility] ED on 05/19/21 with history of onset chest discomfort, continuous, sharp in nature in the substernal region with radiation towards his back as well as bilateral thoracic region with no associated nausea, emesis, diaphoresis or dyspnea starting approximately 1 hour prior to ED arrival coming on suddenly. He rated the pain at its worst 8 of 10 in severity. Following ED evaluation and interventions patient notes that his chest pain is completely resolved. nWork-up in the ED included T 97.3, heart rate 94, BP 130/81, respiratory rate 18, 94% on room air, CBC with WC 7, hemoglobin 12.9, platelet 173 without marked shift, D-dimer 2.68, BMP with BUN/creatinine 25/1.89, glucose 235, initial troponin 11 with repeat 10, chest x-ray with no acute cardiopulmonary findings, follow-up CTPA with no evidence of pulmonary emboli, atherosclerotic disease with no evidence of dissection or aneurysm, bilateral scarring and atelectatic change with a 6.5 mm pulmonary nodule within the left upper lobe, EKG with sinus rhythm with nonspecific ST-T wave changes with no acute evidence of ischemia. [facility] Medical History (Updated 05/20/21 @ 00:[address] Liliane Lowe MD) Allergic rhinitis BPH (benign prostatic hyperplasia) CHF (congestive heart failure) Chronic diastolic heart failure Coronary artery disease Depression Diabetes Essential hypertension GERD (gastroesophageal reflux disease) History of COVID-19 History of DVT (deep vein thrombosis) Hyperlipidemia Hypertensive heart disease with acute diastolic congestive heart failure Hypothyroid Insomnia Mixed hyperlipidemia Obesity ANABELL (obstructive sleep apnea) Proteinuria Restless leg syndrome Tubular adenoma of colon Vitamin D deficiency Home Medications aspirin 81 mg PO DAILY 03/10/13 [History Last Taken 05/02/18] atorvastatin 40 mg PO QHS 03/10/13 [History Last Taken 05/02/18] carbidopa-levodopa [Sinemet CR] 1 ea PO QHS 03/10/13 [History Last Taken 05/02/18] isosorbide mononitrate 30 mg PO DAILY 03/10/13 [History Last Taken 05/02/18] levothyroxine [Levoxyl] 225 mcg PO DAILY 03/10/13 [History Last Taken 05/02/18] losartan 100 mg PO DAILY 03/10/13 [History Last Taken 05/02/18] metoprolol tartrate 50 mg PO DAILY 03/10/13 [History Last Taken 05/02/18] nitroglycerin 0.4 mg SUBLINGUAL Q5M PRN 03/10/13 [History Last Taken 05/02/18] Januvia 100 mg PO DAILY 04/14/15 [History Last Taken 05/02/18] sertraline 50 mg PO DAILY 04/14/15 [History Last Taken 05/02/18] Ozempic 0.5 mg SUBCUT QWEEK 02/18/21 [History Last Taken Unknown] famotidine 10 mg PO BID 02/18/21 [History Last Taken Unknown] furosemide 20 mg PO BID 02/18/21 [History Last Taken Unknown] insulin glargine 45 unit SUBCUT DAILY 02/18/21 [History Last Taken Unknown] magnesium oxide 420 mg PO DAILY 02/18/21 [History Last Taken Unknown] multivitamin with iron-mineral 1 tab PO DAILY 02/18/21 [History Last Taken Unknown] trospium 20 mg PO BID 02/18/21 [History Last Taken Unknown] Allergy/AdvReac Type Severity Reaction Status Date / Time albuterol AdvReac Mild thrush Verified 05/19/21 18:40 ANESESTHIA Allergy Severe Other Uncoded 05/19/21 18:40 Family History (Updated 05/20/21 @ 00:[address] Liliane Lowe MD) Father CAD (coronary artery disease) Myocardial infarction Diabetes Heart disease Hypertension Brother Hypertension Diabetes Surgical History (Updated 05/20/21 @ 00:[address] Liliane Lowe MD) Hx of elbow surgery Hx of mitral valve repair S/P arthroscopic knee surgery S/P CABG x 4 S/P coronary artery stent placement S/P hemorrhoidectomy S/P thyroidectomy Social History (Updated 05/20/21 @ 00:[address] Liliane Lowe MD) household members: spouse Smoking Status: Former smoker quit date: 06/21/74 pack-years: 5 how long ago did patient quit smoking: Additional chew tobacco use history, quit 01/15/2007. alcohol intake: never substance use type: does not use ROS ROS Narrative Admission Review of Systems: CONSTITUTIONAL: No weight loss, fever, chills, + weakness or fatigue. HEENT: Eyes: No visual loss, blurred vision, double vision or yellow sclerae. Ears, Nose, Throat: No hearing loss, sneezing, congestion, runny nose or sore throat. SKIN: No rash or itching, lesions, wounds. CARDIOVASCULAR: + Chest pain, chest pressure or chest discomfort, No palpitations, edema, orthopnea, syncopal events. RESPIRATORY: No shortness of breath, cough or sputum, wheezing, hemoptysis. GASTROINTESTINAL: No anorexia, nausea, vomiting or diarrhea, abdominal pain, melena, BRBPR. GENITOURINARY: No dysuria, frequency, urgency or retention. NEUROLOGICAL: No headache, dizziness, syncope, paralysis, ataxia, numbness or tingling in the extremities, focal weakness, change in bowel or bladder control, seizure. MUSCULOSKELETAL: + muscle, back pain, joint pain or stiffness. HEMATOLOGIC: No anemia, bleeding or bruising. LYMPHATICS: No enlarged nodes. No history of splenectomy. PSYCHIATRIC: + history of depression or anxiety. ENDOCRINOLOGIC: No reports of sweating, cold or heat intolerance. No polyuria or polydipsia. ALLERGIES: No history of asthma, hives, eczema or rhinitis. Vital Signs Vital Signs Vital Signs: 05/19/21 18:38 05/19/21 19:14 05/19/21 19:25 Temperature 97.3 F L Temperature Source Temporal Pulse Rate 94 97 Respiratory Rate 18 25 H Respiratory Effort Normal Blood Pressure 130/81 H 100/75 Blood Pressure Mean 97 83 Pulse Ox 94 Oxygen Delivery Method Room Air Room Air 05/19/21 20:34 05/19/21 22:56 Temperature Temperature Source Pulse Rate 102 H 101 H Respiratory Rate 18 17 Respiratory Effort Blood Pressure 120/77 159/93 H Blood Pressure Mean 91 115 Pulse Ox 94 Oxygen Delivery Method Room Air Room Air Weight Weight: 240 lb Body Mass Index (BMI) 38.7 Physical Exam Narrative Physical Examination: General: Awake, alert, oriented x 3 and cooperative, seated upright in the ED bed, notes chest pain resolved currently. Skin: Normal color, normal turgor, no icterus, no cyanosis. HEENT: AT/NC, EOMI, PERRLA, MMM, no carotid bruits or JVD noted; however thickened neck makes examination difficult. Lungs: CTA bilaterally, moderate effort, mild decrease BL bases, no rales, ronchi or wheezing. Heart: Regular rate and rhythm; no gallop, rub audible. Abdomen: Soft, obese, NTTP, ND, mildly hyperactive BS, no HSM. Extremities: No cyanosis, no clubbing, mild ankle to distal penn edema, chronic. Neurological: Patient awake, alert, oriented as noted, cognitive function intact; pupils equally reactive to light and accommodation, cranial nerves II- XII grossly normal, moving all 4 extremities, no focal deficits, strength preserved. Psychiatric: Affect appears normal, no acute evidence of depressive or anxiety feelings. Results Lab / Micro Data Result Diagrams: 05/19/21 19:10 05/19/21 19:10 Labs: Laboratory Results - last 24 hr 05/19/21 19:10: WBC 7.0, RBC 4.30 L, Hgb 12.9 L, Hct 39.8 L, MCV 92.6, MCH 30.0, MCHC 32.4, RDW Std Deviation 48.0 H, RDW Coeff of Luther 14.2, Plt Count 173, MPV 10.5, Immature Gran % (Auto) 0.400, Neut % (Auto) 57.2, Lymph % (Auto) 26.8, [place] % (Auto) 10.5 H, Eos % (Auto) 4.4, Baso % (Auto) 0.7, Absolute Neuts (auto) 4.0, Absolute Lymphs (auto) 1.89, Nucleated RBC % 0 05/19/21 19:10: Sodium 139, Potassium 4.1, Chloride 102, Carbon Dioxide 27.0, Anion Gap 10, BUN 25 H, Creatinine 1.89 H, Estim Creat Clear Calc 30.01, Est GFR (MDRD) Af Amer 45 L, Est GFR (MDRD) Non-Af 37 L, BUN/Creatinine Ratio 13.2, Glucose 235 H, Calcium 9.0, Troponin I High Sens 11 05/19/21 19:10: D-Dimer Quant (PE/DVT) 2.68 H* 05/19/21 21:13: Troponin I High Sens 10 Radiology Impression Chest X-Ray 05/19/21 19:14 IMPRESSION: There are no acute findings. Electronically Signed: Keo David MD at 19:33 EST , Chest CTA 05/19/21 21:33 IMPRESSION: 1. No pulmonary embolus identified. 2. Atherosclerotic disease with no thoracic aortic aneurysm or dissection. 3. Bilateral lung scarring and atelectatic changes. 6.5 mm pulmonary nodule within left upper lobe. Recommend follow-up per Fleischner Society guidelines: Updated 2017 Fleischner Society guidelines for follow-up and management of pulmonary nodules: Single nodule: Nodule size = 6-8 mm In a low-risk patient: CT at 6-12 months, then consider CT at 18-24 months In a high-risk patient: CT at 6-12 months, then CT at 18-24 months Low risk patients include individuals with minimal or absent history of smoking and other known risk factors. High risk patients include individuals with a history of smoking or other known risk factors. 4. Stable small cyst versus hemangioma within dome of liver. Individualized dose optimization techniques were used for this CT. at 2254 Reported and signed by: Inder Perdue MD Electronically Signed: Inder Perdue MD at 22:53 EST , Assessment & Plan Assessment/Plan (1) Chest pain: QUALIFIERS: Chest pain type: unspecified Qualified Code(s): R07.9 - Chest pain, unspecified PLAN: The patient is a 76 y/o M w/ PMHx: Valvular Heart Disease, BPH, CKD stage III unclear subtype, Chronic Diastolic CHF, HTN, HLD, CAD s/p CABG x 4 and PCI, Diabetes mellitus type II, Hypothyroidism, Anxiety and Depression, RLS, ANABELL who presents to the [facility] ED on 05/19/21 with history of onset chest discomfort, continuous, sharp in nature in the substernal region with radiation towards his back as well as bilateral thoracic region with no associated nausea, emesis, diaphoresis or dyspnea starting approximately 1 hour prior to ED arrival coming on suddenly. #1. Chest Pain: EKG in ED sinus rhythm with no acute evidence of ischemia, CXR w/ no acute cardiopulmonary findings, CTPA with no acute evidence of PE or dissection, initial trop 11 with repeat 10. Will admit to PCU, place on a monitored bed to assure no acute myocardial infarction with serial cardiac enzymes and EKGs. If repeat serial enzymes and EKGs remain unremarkable will pursue a.m. cardiac stress testing. FLP in a.m. Magnesium requested. ASA, NG, morphine. #2. Incidental left upper lobe pulmonary nodule: CTPA with noted 6.5 mm pulmonary nodule, will need outpatient follow-up arranged at discharge. #3. CAD: Status post PCI and CABG x4, continue aspirin, Plavix, statin, metoprolol, losartan regimen, evaluation as noted above. #4. Valvular heart disease: s/p prior MV repair, 02/18/2021 echocardiogram with normal LV size, LV systolic function lower limit normal, EF 53%, PASP 28 mmHg, stage II diastolic dysfunction. #5. Chronic Kidney Disease Stage III, unclear subtype: Admission BUN/Cr 25/1.89, baseline renal function 1.8-2.3, repeat BMP in AM. #6. Chronic diastolic CHF: No obvious evidence of overload, will continue aspirin, Plavix, statin, metoprolol, losartan, Lasix regimen. #7. Hypertension: Continue home regimen including metoprolol, losartan, is osorbide, Lasix with hold parameters, PRN hydralazine. #8. Hyperlipidemia: Continue home statin regimen. AM FLP. #9. Diabetes mellitus type II: Hold oral home regimen, continue home insulin regimen, ADA diet until n.p.o. status, accu checks w/ ISS. #10. Restless leg syndrome: We will continue patient home Sinemet regimen, maintain on fall precautions. #11. Anxiety and depression: We will continue patient home sertraline regimen. #12. Hypothyroidism: We will continue patient home Synthroid regimen. #13. BPH: We will continue patient home Flomax regimen. #14. GERD: We will continue patient home famotidine regimen. #15. ANABELL: We will continue BiPAP nightly. #16. DVT prophylaxis: SCDs, heparin. #17. CODE status: Patient HCPMICKIE is his who is present and living will is currently in place. Discussed CODE status at length including difference between FULL code, DNR-CCA and DNR-CC status. Following discussions about the differences in these status, requested DNR-CCA, no intubation status. Advanced Care Planning Face to Face Time: 16 minutes. Charges/Coding Visit Charges OBSV E&M: 95192 Initial observation care L3 Procedures Hospitalists Procedures: 90298 Advncd Care Plan 30 Min
[2021-05-20] VITALS (10 sets, daily range): BP systolic 130–166; BP diastolic 84–110; PULSE 99–102; RESP 12–24; TEMP 36.4–36.8; O2SAT 91–97
--- NOTE | 2021-05-20 00:55 | EKG12_ITS ---
Test Reason : CP ADMISSION Blood Pressure : / mmHG Vent. Rate : 099 BPM Atrial Rate : 099 BPM P-R Int : 158 ms QRS Dur : 092 ms QT Int : 352 ms P-R-T Axes : 002 -08 070 degrees QTc Int : 451 ms Normal sinus rhythm Inferior infarct , age undetermined Abnormal ECG Confirmed by ANGELICA ELAM, DESTINEE ([id number]), writer editor AASHISH SILVA ([id number]) on 05/23/2021 1:18:03 PM Referred By: ROSA Confirmed By:DESTINEE DOMINGUEZ MD
[2021-05-20] MEDS: Calcium Carbonate 500 MG Tablet PO (01:19)
[2021-05-20] MEDS: Tamsulosin HCl 0.4 MG Capsule 0.8 MG PO (01:19)
[2021-05-20] MEDS: Furosemide 20 MG Tablet PO (01:19)
[2021-05-20] MEDS: Atorvastatin Calcium 40 MG Tablet PO (01:19)
[2021-05-20 01:55] LABS: Troponin-I HS 12 pg/mL (3.0-78.0)
[2021-05-20 06:45] LABS: Absolute Lymphocyte Count 1.89 X10^3/uL (0.83-4.51); Basophil# 0.05 X10^3/uL; Basophil% 0.8 % (0-1); Eosinophil# 0.36 X10^3/uL; Hematocrit 39.2 % (40-54); Hemoglobin 12.4 g/dL (13.0-16.5); Lymphocyte # 1.89 X10^3/ul (0.83-4.51); Lymphocyte % 31.7 % (19-41); Mean Corp Hgb Conc 31.6 g/dL (32-36); Mean Corpuscular Hgb 29.2 pg (27.0-32.0); Mean Corpuscular Volume 92.2 fL (80-94); Mean Platelet Vol. 10.7 fl (6.2-12.0); Monocyte# 0.68 X10^3/uL; Monocyte% 11.4 % (0-10); NRBC Flagged by Analyzer 0 % (0-5); Neutrophil # 2.96 X10^3/uL (2.7-7.7); Neutrophil % 49.8 % (47-70); Platelet Count 148 K/mm3 (150-450); RBC Distribution Width CV 14.3 % (11.6-14.6); RBC Distribution Width SD 48.2 fl (35.1-43.9); Red Blood Count 4.25 M/mm3 (4.6-6.2)
[2021-05-20] MEDS: Aspirin 81 MG TAB.CHEW PO (06:47)
[2021-05-20] MEDS: Clopidogrel Bisulfate 75 MG Tablet PO (06:47)
[2021-05-20] MEDS: Losartan Potassium 100 MG Tablet PO (06:47)
[2021-05-20] MEDS: Levothyroxine 100 MCG Tablet 200 MCG PO (06:47)
[2021-05-20 06:56] LABS: Bedside Glucose 165 mg/dL (70-110)
[2021-05-20 07:20] LABS: ALB/GLOB Ratio 0.9 RATIO (0.9-2.4); AST(SGOT) 19 U/L (15-37); Alanine Aminotransfer ALT/SGPT 25 U/L (16-61); Albumin, Serum 3.2 g/dL (3.2-5.0); Alkaline Phosphatase 104 U/L (45-117); Anion Gap 8 (5-15); BUN 23 mg/dL (7-18); BUN/Creat Ratio 14.5 RATIO (10-20); Chloride 106 mmol/L (98-107); Cholesterol 95 mg/dL (200); Creatinine, Serum 1.59 mg/dL (0.70-1.30); EST Glomerular Filtration Rate 45 mL/min (>60); Est Glom Filt Rate - Afr Amer 55 mL/min (>60); Estimated Creatinine Clearance 36.95 ml/min; Globulin 3.5 g/dL (2.2-4.2); Glucose 148 mg/dL (74-106); High Density Lipoprotein 26 mg/dL; Potassium 3.9 mmol/L (3.5-5.1); Protein, Total 6.7 g/dL (6.4-8.2); Sodium Level 141 mmol/L (136-145); Triglycerides 193 mg/dL; Very Low Density Lipoprotein 39 mg/dL (5-40)
--- NOTE | 2021-05-20 11:21 | DCINST_ITS ---
Discharge Instructions Diet Discharge Diet: Low fat / Low cholesterol Activity Discharge Activity: Return to Normal Activity Dressing / Incision Call your doctor if you observe: Shortness of breath, Dizziness and Chest pain Follow Up Care Test Results: Test results from this visit will be discussed in further detail at your follow-up appointment, if applicable. Discharge Plan Admission Admit Date/Time: 05/19/21 23:53 Primary Reason for Your Visit: Chest pain Attending Provider: Stacy Goff Primary Care Provider: Kobi Adair Discharge Orders/Prescriptions Prescriptions: Continued losartan 50 MG tablet 100 mg PO DAILY RF: 0 atorvastatin 40 MG tablet 40 mg PO QHS RF: 0 carbidopa-levodopa [Sinemet CR] 1 EACH tablet extended release 1 ea PO QHS RF: 0 isosorbide mononitrate 30 MG tablet 30 mg PO DAILY RF: 0 metoprolol tartrate 50 MG tablet 50 mg PO DAILY RF: 0 nitroglycerin 0.4 MG tablet 0.4 mg sublingual Q5M PRN (Reason: Chest Pain) RF: 0 aspirin 81 MG tablet,chewable 81 mg PO DAILY RF: 0 levothyroxine [Levoxyl] 200 MCG tablet 225 mcg PO DAILY RF: 0 sertraline 50 MG tablet 50 mg PO DAILY RF: 0 Januvia 100 MG tablet 100 mg PO DAILY RF: 0 Ozempic 0.25 mg or 0.5 mg(2 mg/1.5 mL) Pen Injector 0.5 mg SUBCUT QWEEK RF: 0 famotidine 10 mg Tablet 10 mg PO BID RF: 0 furosemide 20 mg tablet 20 mg PO BID RF: 0 multivitamin with iron-mineral Tablet 1 tab PO DAILY RF: 0 trospium 20 mg Tablet 20 mg PO BID RF: 0 insulin glargine 100 unit/mL Cartridge 45 unit SUBCUT DAILY RF: 0 magnesium oxide 400 MG tablet 420 mg PO DAILY RF: 0 Referrals / Follow Up: Primary, [employer] [employer] [Other] - See Referral Note (As scheduled) Kobi Adair MD [Primary Care Provider] - In 1 Week Disposition Disposition (needs filled in before D/C Order can be placed): Home, Self Care
--- NOTE | 2021-05-20 11:25 | DS.PCM_ITS ---
Documented by User: Ping Rebolledo NP, FORENSIC MEDICAL EXAMINER-C 05/20/21 12:46 Providers Date of Admission: 05/19/21 Date of Discharge: 05/20/21 Primary Care Physician: Dr. Kobi Adair MD Reason For Visit: CHEST PAIN Diagnosis Discharge Diagnosis (1) Chest pain: Status: Acute Code(s): R07.9 - Chest pain, unspecified Qualifiers: Chest pain type: unspecified Qualified Code(s): R07.9 - Chest pain, unspecified Medications at Discharge Home Medications aspirin 81 mg PO DAILY 03/10/13 atorvastatin 40 mg PO QHS 03/10/13 carbidopa-levodopa [Sinemet CR] 1 ea PO QHS 03/10/13 isosorbide mononitrate 30 mg PO DAILY 03/10/13 levothyroxine [Levoxyl] 225 mcg PO DAILY 03/10/13 losartan 100 mg PO DAILY 03/10/13 metoprolol tartrate 50 mg PO DAILY 03/10/13 nitroglycerin 0.4 mg SUBLINGUAL Q5M PRN 03/10/13 Januvia 100 mg PO DAILY 04/14/15 sertraline 50 mg PO DAILY 04/14/15 Ozempic 0.5 mg SUBCUT QWEEK 02/18/21 famotidine 10 mg PO BID 02/18/21 furosemide 20 mg PO BID 02/18/21 insulin glargine 45 unit SUBCUT DAILY 02/18/21 magnesium oxide 420 mg PO DAILY 02/18/21 multivitamin with iron-mineral 1 tab PO DAILY 02/18/21 trospium 20 mg PO BID 02/18/21 Hospital Course Operations None Procedures Nuclear stress test Summary of Care Provided Hospital Course: Patient is a 76-year-old male admitted 05/19/21 due to chest pain. 1. Chest pain-ACS ruled out. Troponin negative. EKG without ST-T changes. Stress test demonstrated prior DE, no acute ischemia. Patient denies further chest pain. Follow-up with PCP and cardiology as outpatient. 2. Incidental left upper lobe pulmonary nodule-noted on CT. Outpatient follow- up. 3. CAD with history of PCI and CABG-continue aspirin, Plavix, statin, Toprol, losartan. Follows with [facility] cardiology. 4. Valvular heart disease with history of mitral valve repair-stable per recent echo. 5. Chronic kidney disease stage IIIb- at baseline. 6. Chronic heart failure with preserved ejection fraction-recent echocardiogram 02/20/2021 demonstrated an EF of 53%, stage II diastolic dysfunction, pulmonary artery systolic pressure 28 mmHg. 7. Hypertension-stable, continue home regimen. 8. Hyperlipidemia-continue statin. 9. Type 2 diabetes mellitus-continue home regimen. 10. Restless leg syndrome-continue Sinemet. 11. Anxiety/depression-on sertraline. 12. Hypothyroidism-continue Synthroid regimen. 13. BPH-on Flomax. 14. GERD- on famotidine. 15. ANABELL- on BIPAP. Patient seen and examined prior to discharge. Physical assessment as noted below. Patient is stable for discharge with follow up recommendations as noted above. This patient was seen by SUSANA Tanner under the supervision of Dr. Goff. Time spent examining patient, reviewing data and subsequent management of care: 14 Minutes Physical Exam Const alert, oriented x3 and no apparent distress Orientation / Consciousness: awake, oriented to person, oriented to place and oriented to time HEENT normocephalic and moist oral mucous membranes Eyes PERRL, EOMs intact bilaterally and conjunctivae normal Neck no lymphadenopathy Resp normal respiratory effort and clear to auscultation bilaterally Cardio regular rate, regular rhythm and no murmurs Peripheral Pulses: pulses 2+ throughout GI normal to inspection, nondistended, normoactive bowel sounds, non-tender and non-distended Extremity normal to inspection Skin no rashes or lesions noted Lesions: no lesions Rashes: no rashes Trauma: no lacerations or abrasions Neuro CN's II-XII intact bilaterally, no focal motor deficits, no sensory deficits noted and deep tendon reflexes 2+ bilaterally Psych mental status grossly normal and affect normal Weight / BMI Weight Weight: 236 lb 1.841 oz Body Mass Index (BMI) 38.7 ABG / Lab / Microbiology Data Result Diagrams: 05/20/21 06:08 05/20/21 06:08 Laboratory: Laboratory Results - last 24 hr 05/19/21 19:10: WBC 7.0, RBC 4.30 L, Hgb 12.9 L, Hct 39.8 L, MCV 92.6, MCH 30.0, MCHC 32.4, RDW Std Deviation 48.0 H, RDW Coeff of Luther 14.2, Plt Count 173, MPV 10.5, Immature Gran % (Auto) 0.400, Neut % (Auto) 57.2, Lymph % (Auto) 26.8, Mcculloch % (Auto) 10.5 H, Eos % (Auto) 4.4, Baso % (Auto) 0.7, Absolute Neuts (auto) 4.0, Absolute Lymphs (auto) 1.89, Nucleated RBC % 0 05/19/21 19:10: Sodium 139, Potassium 4.1, Chloride 102, Carbon Dioxide 27.0, Anion Gap 10, BUN 25 H, Creatinine 1.89 H, Estim Creat Clear Calc 30.01, Est GFR (MDRD) Af Amer 45 L, Est GFR (MDRD) Non-Af 37 L, BUN/Creatinine Ratio 13.2, Glucose 235 H, Calcium 9.0, Troponin I High Sens 11 05/19/21 19:10: D-Dimer Quant (PE/DVT) 2.68 H* 05/19/21 21:13: Troponin I High Sens 10 05/20/21 01:20: Magnesium Cancelled, Troponin I High Sens 12 05/20/21 01:27: Magnesium 2.0 05/20/21 06:08: WBC 6.0, RBC 4.25 L, Hgb 12.4 L, Hct 39.2 L, MCV 92.2, MCH 29.2, MCHC 31.6 L, RDW Std Deviation 48.2 H, RDW Coeff of Luther 14.3, Plt Count 148 L, MPV 10.7, Immature Gran % (Auto) 0.300, Neut % (Auto) 49.8, Lymph % (Auto) 31.7, Mcculloch % (Auto) 11.4 H, Eos % (Auto) 6.0 H, Baso % (Auto) 0.8, Absolute Neuts (auto) 3.0, Absolute Lymphs (auto) 1.89, Nucleated RBC % 0 05/20/21 06:08: Sodium 141, Potassium 3.9, Chloride 106, Carbon Dioxide 27.0, Anion Gap 8, BUN 23 H, Creatinine 1.59 H, Estim Creat Clear Calc 36.95, Est GFR (MDRD) Af Amer 55 L, Est GFR (MDRD) Non-Af 45 L, BUN/Creatinine Ratio 14.5, Glucose 148 H, Calcium 9.0, Total Bilirubin 0.90, AST 19, ALT 25, Alkaline Phosphatase 104, Total Protein 6.7, Albumin 3.2, Globulin 3.5, Albumin/Globulin Ratio 0.9, Triglycerides 193, Cholesterol 95, LDL Cholesterol 30, VLDL Cholesterol 39, HDL Cholesterol 26 L 05/20/21 06:40: POC Glucose 165 H Radiography Diagnostic Testing: Radiology Impression Chest X-Ray 05/19/21 19:14 IMPRESSION: There are no acute findings. Electronically Signed: Keo David MD at 19:33 EST , Chest CTA 05/19/21 21:33 IMPRESSION: 1. No pulmonary embolus identified. 2. Atherosclerotic disease with no thoracic aortic aneurysm or dissection. 3. Bilateral lung scarring and atelectatic changes. 6.5 mm pulmonary nodule within left upper lobe. Recommend follow-up per Fleischner Society guidelines: Updated 2017 Fleischner Society guidelines for follow-up and management of pulmonary nodules: Single nodule: Nodule size = 6-8 mm In a low-risk patient: CT at 6-12 months, then consider CT at 18-24 months In a high-risk patient: CT at 6-12 months, then CT at 18-24 months Low risk patients include individuals with minimal or absent history of smoking and other known risk factors. High risk patients include individuals with a history of smoking or other known risk factors. 4. Stable small cyst versus hemangioma within dome of liver. Individualized dose optimization techniques were used for this CT. at 2254 Reported and signed by: Inder Perdue MD Electronically Signed: Inder Perdue MD at 22:53 EST , D/C Instructions Discharge Diet: Low fat / Low cholesterol Call your doctor if you observe: Shortness of breath, Dizziness and Chest pain Meaningful Use Info Meaningful Use Diagnoses (Choose all that apply): None applicable Discharge Plan Admission Admit Date/Time: 05/19/21 23:53 Primary Reason for Your Visit: Chest pain Attending Provider: Stacy Goff Primary Care Provider: Kobi Adair Discharge Orders/Prescriptions Prescriptions: Continued losartan 50 MG tablet 100 mg PO DAILY RF: 0 atorvastatin 40 MG tablet 40 mg PO QHS RF: 0 carbidopa-levodopa [Sinemet CR] 1 EACH tablet extended release 1 ea PO QHS RF: 0 isosorbide mononitrate 30 MG tablet 30 mg PO DAILY RF: 0 metoprolol tartrate 50 MG tablet 50 mg PO DAILY RF: 0 nitroglycerin 0.4 MG tablet 0.4 mg sublingual Q5M PRN (Reason: Chest Pain) RF: 0 aspirin 81 MG tablet,chewable 81 mg PO DAILY RF: 0 levothyroxine [Levoxyl] 200 MCG tablet 225 mcg PO DAILY RF: 0 sertraline 50 MG tablet 50 mg PO DAILY RF: 0 Januvia 100 MG tablet 100 mg PO DAILY RF: 0 Ozempic 0.25 mg or 0.5 mg(2 mg/1.5 mL) Pen Injector 0.5 mg SUBCUT QWEEK RF: 0 famotidine 10 mg Tablet 10 mg PO BID RF: 0 furosemide 20 mg tablet 20 mg PO BID RF: 0 multivitamin with iron-mineral Tablet 1 tab PO DAILY RF: 0 trospium 20 mg Tablet 20 mg PO BID RF: 0 insulin glargine 100 unit/mL Cartridge 45 unit SUBCUT DAILY RF: 0 magnesium oxide 400 MG tablet 420 mg PO DAILY RF: 0 Referrals / Follow Up: Primary, [facility] [Other] - See Referral Note (As scheduled) Kobi Adair MD [Primary Care Provider] - In 1 Week Disposition Disposition (needs filled in before D/C Order can be placed): Home, Self Care Documented by User: Dr. Stacy Goff MD 05/20/21 16:56 Providers Date of Admission: 05/19/21 Reason For Visit: CHEST PAIN Medications at Discharge Home Medications aspirin 81 mg PO DAILY 03/10/13 atorvastatin 40 mg PO QHS 03/10/13 carbidopa-levodopa [Sinemet CR] 1 ea PO QHS 03/10/13 isosorbide mononitrate 30 mg PO DAILY 03/10/13 levothyroxine [Levoxyl] 225 mcg PO DAILY 03/10/13 losartan 100 mg PO DAILY 03/10/13 metoprolol tartrate 50 mg PO DAILY 03/10/13 nitroglycerin 0.4 mg SUBLINGUAL Q5M PRN 03/10/13 Januvia 100 mg PO DAILY 04/14/15 sertraline 50 mg PO DAILY 04/14/15 Ozempic 0.5 mg SUBCUT QWEEK 02/18/21 famotidine 10 mg PO BID 02/18/21 furosemide 20 mg PO BID 02/18/21 insulin glargine 45 unit SUBCUT DAILY 02/18/21 magnesium oxide 420 mg PO DAILY 02/18/21 multivitamin with iron-mineral 1 tab PO DAILY 02/18/21 trospium 20 mg PO BID 02/18/21 ABG / Lab / Microbiology Data Result Diagrams: 05/20/21 06:08 05/20/21 06:08 Discharge Plan Admission Admit Date/Time: 05/19/21 23:53 Primary Reason for Your Visit: Chest pain Attending Provider: Stacy Goff Primary Care Provider: Kobi Adair Discharge Orders/Prescriptions Prescriptions: Continued losartan 50 MG tablet 100 mg PO DAILY RF: 0 atorvastatin 40 MG tablet 40 mg PO QHS RF: 0 carbidopa-levodopa [Sinemet CR] 1 EACH tablet extended release 1 ea PO QHS RF: 0 isosorbide mononitrate 30 MG tablet 30 mg PO DAILY RF: 0 metoprolol tartrate 50 MG tablet 50 mg PO DAILY RF: 0 nitroglycerin 0.4 MG tablet 0.4 mg sublingual Q5M PRN (Reason: Chest Pain) RF: 0 aspirin 81 MG tablet,chewable 81 mg PO DAILY RF: 0 levothyroxine [Levoxyl] 200 MCG tablet 225 mcg PO DAILY RF: 0 sertraline 50 MG tablet 50 mg PO DAILY RF: 0 Januvia 100 MG tablet 100 mg PO DAILY RF: 0 Ozempic 0.25 mg or 0.5 mg(2 mg/1.5 mL) Pen Injector 0.5 mg SUBCUT QWEEK RF: 0 famotidine 10 mg Tablet 10 mg PO BID RF: 0 furosemide 20 mg tablet 20 mg PO BID RF: 0 multivitamin with iron-mineral Tablet 1 tab PO DAILY RF: 0 trospium 20 mg Tablet 20 mg PO BID RF: 0 insulin glargine 100 unit/mL Cartridge 45 unit SUBCUT DAILY RF: 0 magnesium oxide 400 MG tablet 420 mg PO DAILY RF: 0 Referrals / Follow Up: Primary, [facility] [Other] - See Referral Note (As scheduled) Kobi Adair MD [Primary Care Provider] - In 1 Week Disposition Disposition (needs filled in before D/C Order can be placed): Home, Self Care Charges/Coding Addendum Addendum: Patient seen by Ping MEZA under my supervision Patient seen and examined. He was admitted with a complaint of chest pain. Chest pain was retrosternal, sharp and radiated towards his back. He had no associated nausea vomiting or diaphoresis or shortness of breath. Chest pain started an hour prior to him coming in. Review of systems otherwise negative. D-dimer was elevated at 2.[address] of the chest was negative for any evidence of PE. EKG showed no acute ST changes. 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 He was admitted and managed for chest pain rule out ACS. He had a stress test on 05/20/2021 which was negative for any josé miguel dence of ischemia. Chest pain resolved and did not recur during this admission. He was discharged home on 05/20/2021 and is to follow-up with his primary care doctor in 1 to 2 weeks. He is also to follow-up with cardiology. He is to follow-up with his primary care doctor for referral to pulmonology to follow-up with the left upper lobe pulmonary nodule. Patient seen and examined prior to discharge. He had no active complaints and felt well. Review of systems otherwise negative. Labs and vitals reviewed. Home medication reviewed and reconciled. O/E; Const alert, oriented x3 and no apparent distress Orientation / Consciousness: awake, oriented to person, oriented to place and oriented to time HEENT normocephalic and moist oral mucous membranes Eyes PERRL, EOMs intact bilaterally and conjunctivae normal Neck no lymphadenopathy Resp normal respiratory effort and clear to auscultation bilaterally Cardio regular rate, regular rhythm and no murmurs Peripheral Pulses: pulses 2+ throughout GI normal to inspection, nondistended, normoactive bowel sounds, non-tender and non-distended Extremity normal to inspection Skin no rashes or lesions noted Lesions: no lesions Rashes: no rashes Trauma: no lacerations or abrasions Neuro CN's II-XII intact bilaterally, no focal motor deficits, no sensory deficits noted and deep tendon reflexes 2+ bilaterally Psych mental status grossly normal and affect normal Plan is for discharge home today. Total time spent on patient's care by me today which includes seeing and examining patient, reviewing data and documenting notes: 32 minutes with FORENSIC MEDICAL EXAMINER spending 14 minutes making a total of 46 minutes. Rest as per Ping Rebolledo NP-C's note which I have reviewed and endorsed. Visit Charges OBSV E&M: 02481 Observation care discharge
--- NOTE | 2021-05-20 11:35 | STRESSREP_ITS ---
Stress Test Report Pharmacologic/regadenoson myocardial perfusion stress test. Indication; 76-year-old patient with extensive cardiac history had CAD with: Artery bypass surgery 2006 subsequently 2009 had a PCI and stent x2 As well had a history of mitral valve repair Patient presented with symptoms of chest pain and has a cardiac work-up with EKG satellite project site monitor and series of cardiac enzymes which were negative Based on clinical presentation he was scheduled for Lexiscan sestamibi marker perfusion study to assess for reversible myocardial ischemia and evaluate for progression of CAD. Stress protocol: Resting EKG demonstrates. Normal sinus rhythm. With age indeterminant old inferior CA. Small Q waves noted in the inferior lead, lead II, III and aVF With nonspecific T wave in V1 V2 0.4 mg of regadenoson was infused per usual protocol followed by rapid intravenous saline flush injection continuous EKG monitoring was performed. The maximum heart rate attained was 101 bpm which was 70% of maximum predicted heart rate. Stress EKG showed[, no significant change from the resting EKG, with maximum heart rate of 101 bpm. Age indeterminate inferior CA Arrhythmia: No arrhythmia demonstrated Symptoms: Patient had no symptoms of chest pain Blood pressure at rest: 142/90 mmHg blood pressure at the end of stress: 152/90 mmHg Myocardial perfusion protocol. 13.6 mCi ]of Technetium 99m Sestamibi was injected at rest. [ 0.4 mg ]of Regadenoson was infused per usual protocol peak infusion 41.8 mCi ]of Technetium 99m sestamibi was injected. Stress images were obtained stress and rest images were reconstructed and compared in the short axis vertical and horizontal long axis. Gated images were also obtained Perfusion SPECT analysis: Review of the images demonstrate reduced tracer uptake, noted both at rest and during maximal stress in the inferolateral region Consistent with previous myocardial infarction. With no evidence of reversible myocardial ischemia. Gated SPECT analysis: The gated ejection fraction is 46%, with inferolateral mild hypokinesia Conclusion: Fixed inferolateral defect consistent with prior inferolateral CA No reversible myocardial ischemia Mildly reduced LV systolic function with inferolateral hypokinesia. Rachell Echevarria MD,FACC,[facility]
--- NOTE | 2021-05-20 14:03 | NURSING ---
pt declined medications here, stated that since his stress test was negative, he would just take them once he got home.
== END 2021-05-20 14:02 | disposition home or self-care (01) ==
LOC: ED 23:55 → PCU 05-20 00:06
PROVIDERS: Admitting Provider Family Medicine; Emergency Provider Emergency Medicine; PCP Family Medicine; Visit Provider Student in an Organized Health Care Education/Training Program
DX: R07.89 Other chest pain (principal); I13.0 Hypertensive heart and chronic kidney disease with heart failure and stage 1 through stage 4 chronic kidney disease, or unspecified chronic kidney disease; I50.32 Chronic diastolic (congestive) heart failure; E11.22 Type 2 diabetes mellitus with diabetic chronic kidney disease; Z79.4 Long term (current) use of insulin; N18.32 Chronic kidney disease, stage 3b; E78.2 Mixed hyperlipidemia; G25.81 Restless legs syndrome; F41.9 Anxiety disorder, unspecified; R91.8 Other nonspecific abnormal finding of lung field; E89.0 Postprocedural hypothyroidism; G47.33 Obstructive sleep apnea (adult) (pediatric); K21.9 Gastro-esophageal reflux disease without esophagitis; N40.0 Benign prostatic hyperplasia without lower urinary tract symptoms; F32.A Depression, unspecified; I25.10 Atherosclerotic heart disease of native coronary artery without angina pectoris; E66.9 Obesity, unspecified; Z86.718 Personal history of other venous thrombosis and embolism; Z86.16 Personal history of COVID-19; Z79.82 Long term (current) use of aspirin; Z68.37 Body mass index [BMI] 37.0-37.9, adult; Z87.891 Personal history of nicotine dependence; Z79.890 Hormone replacement therapy; Z79.899 Other long term (current) drug therapy
CPT/HCPCS: 36415; 71045; 71275; 78452; 80048; 80053; 80061; 82962; 83735; 84484; 85025; 85379; 93005; 93017; 94002; 99218; 99251; 99285; A9500; Q9967; A4216; G0378; G0463; J2785

== ENCOUNTER → 2021-07-13 13:56 | Outpatient (CLI) | payer OTHER, SELFPAY ==
--- NOTE | 2021-07-13 14:00 | ECHOD_ITS ---
Reason For Study: ISCHEMIC HEART DISEASE Procedure This was a 2D Doppler, Color Flow transthoracic echocardiogram. The study was technically difficult. Exam performed in department. Left Ventricle Normal LV size. Mild segmental systolic dysfunction (see wall motion). The estimated ejection fraction is 50 %. Diastolic function is indeterminate. Posterior-Basal: Akinetic. Infero-Basal: Akinetic. Basal inferoseptal: Hypokinetic. Mid-Posterior: Hypokinetic. Mid-Inferior: Akinetic. Mid- inferoseptal : Hypokinetic. Mid-anteroseptal : Hypokinetic. Anterior Meridian : Not visualized. Inferior Meridian : Not visualized. Septal Meridian : Hypokinetic. Right Ventricle Normal RV size. Normal systolic function. Atria The left atrium is mildly enlarged. Normal right atrium. No doppler evidence for ASD. Mitral Valve An annuloplasty ring is noted in the mitral position. Trivial transvalvular insufficiency of the mitral valve. Tricuspid Valve Normal tricuspid valve. Trivial tricuspid valve insufficiency. Unable to estimate RV systolic pressure/pulmonary artery pressure due to technically difficult study. Aortic Valve Trisinus/trileaflet aortic valve. Mild focal aortic valve calcification. Pulmonic Valve The pulmonic valve is not well visualized. Great Vessels Normal sized aortic root. Pericardium/Pleural No pericardial effusion. MMode/2D Measurements & Calculations LVIDd: 5.2 cm IVSd: 1.1 cm Ao root diam: 3.4 cm LVIDs: 4.9 cm LVPWd: 0.81 cm FS: 5.7 % LAV(MOD-bp): 56.6 ml LVAd ap4: 34.2 cm2 LVAd ap2: 32.4 cm2 LAV(MOD-bp) Indexed: 26.3 ml/m2 LVLd ap4: 8.0 cm LVLd ap2: 8.5 cm LAV(MOD-sp2): 42.6 ml EDV(MOD-sp4): 119.9 ml EDV(MOD-sp2): 100.6 ml LAV(MOD-sp4): 73.1 ml EDV(sp4-el): 123.5 ml EDV(sp2-el): 104.6 ml LVAs ap4: 25.2 cm2 LVAs ap2: 25.9 cm2 LVLs ap4: 7.6 cm LVLs ap2: 7.6 cm ESV(MOD-sp4): 68.3 ml ESV(MOD-sp2): 72.8 ml ESV(sp4-el): 71.0 ml ESV(sp2-el): 74.4 ml EF(MOD-sp4): 43.0 % EF(MOD-sp2): 27.6 % EF(sp4-el): 42.5 % SV(MOD-sp4): 51.5 ml SV(MOD-sp2): 27.7 ml SV(sp4-el): 52.5 ml LA dimension(2D): 5.2 cm LA A4 area: 23.6 cm2 RA A4 area: 19.6 cm2 Doppler Measurements & Calculations MV E max bob: 157.0 cm/sec Lat Peak E' Bob: 8.8 cm/sec Med Peak E' Bob: 7.4 cm/sec MV A max bob: 132.0 cm/sec E/E' lat: 17.8 E/E' med: 21.3 MV E/A: 1.2 MV V2 max: 168.3 cm/sec Ao V2 max: 115.6 cm/sec LV V1 max: 108.2 cm/sec MV max P.4 mmHg Ao max P.3 mmHg LV V1 max P.7 mmHg MV V2 mean: 125.7 cm/sec MV mean P.9 mmHg MV V2 VTI: 28.3 cm PA V2 max: 88.6 cm/sec ECHO/Echo Complete Interpretation Summary The study was technically difficult. Mild segmental systolic dysfunction (see wall motion). The estimated ejection fraction is 50 %. The left atrium is mildly enlarged. An annuloplasty ring is noted in the mitral position. Trivial transvalvular insufficiency of the mitral valve. Trivial tricuspid valve insufficiency. Mild focal aortic valve calcification. Unable to estimate RV systolic pressure/pulmonary artery pressure due to techni mark difficult study. Diastolic function is indeterminate. Ordering Physician: HILLARY ALFARO Referring Physician: NIKIA KAPOOR Performed By: Mariel Swan RCS
== END ==
PROVIDERS: PCP Family Medicine
DX: I25.10 Atherosclerotic heart disease of native coronary artery without angina pectoris (principal)
CPT/HCPCS: 93306

== ENCOUNTER 2024-04-14 10:40 | Inpatient (IN) | payer OTHER, SELFPAY ==
[2024-04-14 10:42] VITALS: BP 110/56; PULSE 93; RESP 18; TEMP 36.9; O2SAT 98; BMI 36.6
--- NOTE | 2024-04-14 10:57 | RAD_ITS ---
STUDY: X-RAY - PELVIS AND LEFT HIP REASON FOR EXAM: Male, 79 years old. Trauma, slipped on ice x 2 days. TECHNIQUE: 3 views of the pelvis and left hip. COMPARISON: None. FINDINGS: There is a non-specific bowel gas pattern. There are mild atherosclerotic vascular calcifications of the femoral arteries. There are multiple calcified phleboliths. Normal bilateral iliac wings, sacroiliac joints and visualized sacrum. Normal bilateral superior and inferior pubic rami. Normal pubic symphysis. Normal bilateral ischial tuberosities. Intact visualized femoral heads bilaterally. Intact acetabula bilaterally. There is mild articular joint space narrowing of the hips bilaterally. There is no demonstrated acute fracture. RAD/HIP, UNI W/ Pelvis 2-3 Views IMPRESSION: Mild degenerative arthrosis of the hip joints bilaterally. No demonstrated acute fracture. Electronically Signed: Chente Howe MD at 12:13 EST ,
--- NOTE | 2024-04-14 10:59 | ED.VIS.LOWEX ---
HPI History of Present Illness Chief Complaint: Lower Extremity Injury Narrative Narrative: 79-year-old male past medical history of diabetes, hypertension, hypercholesterolemia presents with inability to bear weight on his left leg and left hip pain from a fall on Saturday, 2 days ago. He states that he was taking out the trash and slipped and fell on the ice. He had 2 neighbors help him into the house. Since then he has been using his walker, and sitting because he is unable to stand or bear weight on his left leg. He has pain that is worse with movement. He also complains of left rib pain. He denies hitting his head or loss of consciousness. He does not take blood thinners. He and his called EMS because of his inability to ambulate and continued left lower extremity pain. [facility] Medical History (Updated 04/14/24 @ 15:01 by Buddy Andrews MD) History of COVID-19 History of DVT (deep vein thrombosis) Coronary artery disease Essential hypertension Tubular adenoma of colon Chronic diastolic heart failure ANABELL (obstructive sleep apnea) Insomnia Vitamin D deficiency Proteinuria BPH (benign prostatic hyperplasia) Restless leg syndrome Hypertensive heart disease with acute diastolic congestive heart failure Mixed hyperlipidemia Allergic rhinitis Diabetes Depression GERD (gastroesophageal reflux disease) Obesity Hypothyroid CHF (congestive heart failure) Hyperlipidemia Home Medications ?Medication ?Instructions ?Recorded ?Last Taken ?Type aspirin 81 mg chewable tablet 81 mg PO DAILY heart health 03/10/13 04/14/24 History atorvastatin 40 mg tablet 40 mg PO QHS cholesterol 03/10/13 04/13/24 History isosorbide mononitrate 30 mg 30 mg PO DAILY heart 03/10/13 04/14/24 History tablet,extended release 24 hr levothyroxine 200 mcg tablet 200 mcg PO DAILY thyroid 03/10/13 04/14/24 History (Levoxyl) losartan 50 mg tablet 50 mg PO DAILY blood pressure 03/10/13 04/14/24 History metoprolol tartrate 50 mg tablet 50 mg PO DAILY blood pressure 03/10/13 04/14/24 History nitroglycerin 0.4 mg sublingual 0.4 mg sublingual Q5M PRN Chest 03/10/13 05/02/18 History tablet Pain sertraline 50 mg tablet 50 mg PO DAILY mental health 04/14/15 05/02/18 History sitagliptin phosphate 100 mg 100 mg PO DAILY diabetes 04/14/15 05/02/18 History tablet (Januvia) famotidine 10 mg tablet 10 mg PO BID reflux 02/18/21 04/14/24 History furosemide 20 mg tablet 20 mg PO BID diuretic 02/18/21 04/14/24 History magnesium oxide 400 mg (241.3 mg 400 mg PO DAILY supplement 02/18/21 04/14/24 History magnesium) tablet semaglutide 0.25 mg or 0.5 mg (2 0.5 mg subcut TH diabetes 02/18/21 Unknown History mg/1.5 mL) subcutaneous pen injector (Ozempic) trospium 20 mg tablet 20 mg PO BID bladder 02/18/21 04/14/24 History carbidopa ER 25 mg-levodopa 100 mg 1 tab PO QHS 04/14/24 04/13/24 History tablet,extended release insulin glargine 100 unit/mL (3 45 unit subcut DAILY 04/14/24 04/14/24 History mL) subcutaneous pen (Lantus Solostar U-100 Insulin) multivitamin with iron 1 tab PO DAILY 04/14/24 04/14/24 History vit C 250 mg-vit E 90 mg-zinc 40 1 tab PO BID 04/14/24 04/14/24 History mg-copper 1 [id number] capsule (PreserVision AREDS-2) Allergy/AdvReac Type Severity Reaction Status Date / Time Anesthetics - Amide Type - Allergy Other Verified 10/02/22 14:21 Select [facility]esthetics - [place] Type- Allergy Other Verified 10/02/22 14:21 Parabens albuterol AdvReac Mild thrush Verified 05/19/21 18:40 Family History (Updated 05/20/21 @ 00:[address] Liliane Lowe MD) Father CAD (coronary artery disease) Myocardial infarction Diabetes Heart disease Hypertension Brother Hypertension Diabetes Surgical History (Updated 05/20/21 @ 00:[address] Liliane Lowe MD) S/P thyroidectomy S/P arthroscopic knee surgery S/P hemorrhoidectomy Hx of elbow surgery S/P CABG x 4 S/P coronary artery stent placement Hx of mitral valve repair Social History (Updated 05/20/21 @ 00:[address] Liliane Lowe MD) household members: spouse Smoking Status: Former smoker quit date: 09/26/73 pack-years: 5 how long ago did patient quit smoking: Additional chew tobacco use history, quit 01/15/2007. alcohol intake: never substance use type: does not use ROS ROS ED ROS Narrative Review of systems positive for left lower extremity pain, left hip pain that is worse with weightbearing and movement. Also complains of left rib pain. No headaches, no neck pain. Denies other injuries. EXAM Physical Exam Narrative Exam Narrative: GCS 15. ABCs are intact. HEENT examination grossly unremarkable. PERRL, EOMI. Cardiovascular examination feels a regular rate and rhythm. Lungs are clear to auscultation bilaterally. There is mild tenderness to palpation in the left lateral ribs but no evidence of crepitance. Abdomen is soft and nontender with positive bowel sounds. No guarding or rebound. Pelvis stable. Positive pain with logrolling of left femur. Diffuse tenderness to palpation left hip. Left lower extremity is not externally rotated or shortened on examination. Palpable dorsalis pedis pulse, left. EHL intact. Const Vital Signs: 04/14/24 10:42 04/14/24 14:41 04/14/24 14:49 Temperature 98.5 F 98.2 F Temperature Source Oral Pulse Rate 93 88 88 Respiratory Rate 18 17 17 Blood Pressure 110/56 L 134/85 H 134/85 H Blood Pressure Mean 74 101 101 Pulse Ox 98 98 98 Oxygen Delivery Method Room Air Room Air MDM MDM MDM Narrative Medical decision making narrative: Differential diagnosis includes but not limited to pubic ramus fracture versus left hip fracture. There is suspicion of rib fracture versus rib contusion as well. I have very low suspicion for intracranial hemorrhage as he did not hit his head, lose consciousness, and his injury was 2 days ago. IV was placed and baseline labs were obtained because he has the inability to ambulate currently and had to call the squad. X-rays were obtained of the left ribs and of the left pelvis/hip. He was administered fentanyl 50 mcg and ondansetron for analgesia. I reviewed his laboratory work and he has normal white count 6.4 with hemoglobin 14.7, creatinine elevated at 1.7 with BUN of 26 consistent with his chronic kidney disease when compared to prior laboratories. X-rays of the left ribs and chest interpreted by myself independently shows no evidence of pneumothorax, no noted displaced rib fracture. I reviewed the radiology report which confirms my independent interpretation. Additionally, on my independent interpretation of his left hip x-rays, there is no evidence of pubic ramus fracture or hip fracture noted. Given his inability to ambulate and continued pain, CT of the left hip was performed. I reviewed the radiology report which comments on a nondisplaced fracture of the greater trochanter. His pain is intractable and he has been unable to ambulate over the last 2 days since his initial injury on Saturday. I discussed with him the need for admission for PT/OT evaluation and possible rehabilitation. I discussed patient with Dr. Liliane Lowe who agrees with admission but requested EKG. EKG obtained and interpreted by myself independently as normal sinus rhythm at 90 bpm without ectopy or acute ST changes. No STEMI. She also requested that I discussed patient with orthopedics. I discussed the patient with Dr. Patel who reviewed the CT of the hip and agrees that there is no extension into the surgical neck or proximal femur. He agrees that this injury is nonoperative. Patient will be admitted for intractable pain. Disposition is admit in stable condition. History & Record Review Discussion w/independent historian: Patient and Family Additional record(s) reviewed:: Prior labs Lab Data Labs: Laboratory Results - last 24 hr 04/14/24 11:09 WBC 6.4 RBC 4.72 Hgb 14.7 Hct 44.3 MCV 93.9 MCH 31.1 MCHC 33.2 RDW Std Deviation 46.1 H RDW Coeff of Luther 13.5 Plt Count 129 L MPV 10.4 Immature Gran % (Auto) 0.300 Neut % (Auto) 63.6 Lymph % (Auto) 20.7 [place] % (Auto) 10.0 Eos % (Auto) 4.9 Baso % (Auto) 0.5 Absolute Neuts (auto) 4.1 Absolute Lymphs (auto) 1.32 Nucleated RBC % 0 Sodium 138 Potassium 3.7 Chloride 106 Carbon Dioxide 26.0 Anion Gap 6 BUN 26 H Creatinine 1.70 H Estim Creat Clear Calc 40.90 Est GFR (MDRD) Af Amer 50 L Est GFR (MDRD) Non-Af 42 L BUN/Creatinine Ratio 15.3 Glucose 194 H Calcium 8.7 Radiography Diagnostic Testing: Clinical Impression(s) from Imaging Studies Hip/Pelvis X-Ray 04/14/24 10:57 IMPRESSION: Mild degenerative arthrosis of the hip joints bilaterally. No demonstrated acute fracture. Electronically Signed: Chente Howe MD at 12:13 EST , Ribs w/Chest X-Ray 04/14/24 11:34 IMPRESSION: RIBS: No acute left rib fracture. CHEST: Cardiomegaly. Electronically Signed: Chente Howe MD at 12:10 EST , Lower Extremity CT 04/14/24 12:11 IMPRESSION: Nondisplaced comminuted fracture of the left greater trochanter. Electronically Signed: Christin Villeda MD at 13:30 EST , Management Discussion w/another healthcare provider: Hospitalist and Refinery Operator (Orthopedics) Discharge Plan Dx/Rx/DC Orders Clinical Impression: Fracture of greater trochanter, Inability to walk, Intractable pain, Chronic kidney disease (CKD) Disposition Disposition: Acute Care [facility]
[2024-04-14] MEDS: Ondansetron 4 MG/2 ML Vial IV (11:17)
[2024-04-14] MEDS: fentaNYL 100 MCG/2 ML Ampul 50 MCG IV (11:17)
[2024-04-14 11:21] LABS: Absolute Lymphocyte Count 1.32 X10^3/uL (0.83-4.51); Absolute Neutrophil Count 4.1 X10^3/uL (2.0-7.7); Basophil# 0.03 X10^3/uL; Basophil% 0.5 % (0-1); Eosinophil# 0.31 X10^3/uL; Eosinophils% 4.9 % (0-5); Hematocrit 44.3 % (40-54); Hemoglobin 14.7 g/dL (13.0-16.5); Lymphocyte # 1.32 X10^3/ul (0.83-4.51); Lymphocyte % 20.7 % (19-41); Mean Corp Hgb Conc 33.2 g/dL (32-36); Mean Corpuscular Hgb 31.1 pg (27.0-32.0); Mean Corpuscular Volume 93.9 fL (80-94); Mean Platelet Vol. 10.4 fl (6.2-12.0); Monocyte# 0.64 X10^3/uL; NRBC Flagged by Analyzer 0 % (0-5); Neutrophil # 4.05 X10^3/uL (2.7-7.7); Neutrophil % 63.6 % (47-70); Platelet Count 129 K/mm3 (150-450); RBC Distribution Width CV 13.5 % (11.6-14.6); RBC Distribution Width SD 46.1 fl (35.1-43.9); Red Blood Count 4.72 M/mm3 (4.6-6.2); White Blood Count 6.4 K/mm3 (4.4-11.0)
[2024-04-14 11:32] LABS: Anion Gap 6 (5-15); BUN 26 mg/dL (7-18); BUN/Creat Ratio 15.3 RATIO (10-20); Calcium,Total 8.7 mg/dL (8.5-10.1); Chloride 106 mmol/L (98-107); EST Glomerular Filtration Rate 42 mL/min (>60); Est Glom Filt Rate - Afr Amer 50 mL/min (>60); Glucose 194 mg/dL (74-106); Potassium 3.7 mmol/L (3.5-5.1); Sodium Level 138 mmol/L (136-145)
--- NOTE | 2024-04-14 11:34 | RAD_ITS ---
STUDY: X-RAY - UNILATERAL RIBS ( LEFT ) WITH CHEST REASON FOR EXAM: Male, 79 years old. Trauma. TECHNIQUE - RIBS: 4 views of the left ribs. TECHNIQUE - CHEST: 2 frontal views of the chest. COMPARISON: None. FINDINGS - RIBS: Normal visualized left ribs without a demonstrated fracture. FINDINGS - CHEST: There are sternal cerclage wires in place. The lungs are clear and expanded. There is no demonstrated pleural abnormality. There is cardiomegaly. Normal mediastinum and polo. Normal visualized pulmonary arteries. There are atherosclerotic calcifications of the aortic arch. Normal visualized thoracic spine. Normal visualized ribs, clavicles, and shoulders. There is no demonstrated abnormality of the visualized soft tissue structures of the upper abdomen. RAD/Ribs Uni Min 3V w/PA Chest IMPRESSION: RIBS: No acute left rib fracture. CHEST: Cardiomegaly. Electronically Signed: Chente Howe MD at 12:10 EST ,
--- NOTE | 2024-04-14 12:11 | CT_ITS ---
HISTORY: Trauma, pain. TECHNIQUE: Helically acquired images were obtained of the left hip without contrast. 2-D reformats were performed by the technologist. A radiation dose optimization technique was used for this scan. 404 images. COMPARISON: XR same day. FINDINGS: BONES: Nondisplaced comminuted fracture of the greater trochanter. No other acute fracture identified. JOINT SPACES: No dislocation. Mild degenerative changes of the left hip. SOFT TISSUES: Mild lateral subcutaneous and intramuscular edema. Enlarged prostate with calcifications. CT/Extremity Lower without Contra IMPRESSION: Nondisplaced comminuted fracture of the left greater trochanter. Electronically Signed: Christin Villeda MD at 13:30 EST ,
--- NOTE | 2024-04-14 14:40 | HP.PCM.HOS_ITS ---
HPI - General General Date of Admission: 04/14/24 Date of Service: 04/14/24 Chief Complaint: Fall, L hip pain/L chest pain HPI Narrative The patient is a 79 y/o M w/ PMHx: Former tobacco use, CKD stage III unclear subtype per GFR trending, Chronic thrombocytopenia, Obesity, Hx VTE (DVT), Hx COVID-19, HTN, HLD, HFpEF, ANABELL, RLS, BPH with obstructive pathology, Anxiety and Depression, Hypothyroidism, Diabetes mellitus type II, CAD s/p CABG x 4 and PCI, Valvular Heart Disease s/p MV repair who presents to the [facility] ED on 04/14/24 with history of mechanical fall unfortunately 2 days prior to current presentation on Saturday with significant pain to the left leg and hip with inability to bear weight occurring when he slipped while taking the trash out falling on the ice with since then utilization of a walker and required continuous sitting secondary to inability to even stand or bear weight with severe pain with any movement attempts with also left rib pain with no loss consciousness or head trauma eventually prompting family to call EMS secondary to severe debility and pain. Workup in the ED included T98.5, heart rate 93, BP 110/56, respiratory rate 18, 98% on room air, CBC with WBC 6.4, hemoglobin 14.7, platelet 129 without marked shift, BMP with BUN/creatinine 26/1.70, GFR 42, glucose of 194, plain film of the left hip and pelvis with mild degenerative arthrosis of the hip joints bilaterally with no demonstrated acute fracture, unilateral left ribs with chest with no acute fractures, cardiomegaly evident, CT of the left hip without contrast with evidence of a nondisplaced comminuted fracture of the left greater trochanteric. Patient notes currently at rest his pain is controlled however if he attempts to bear any weight he notes his pain is severe stabbing and rates it 8 out of 10 in severity. He denies any radiculopathy or paresthesias with the pain. The ED discussed case with Dr. Patel who notes this is non-operative and patient may be weight bearing as tolerated. FOR[facility]LY [facility], LATER [facility] Medical History Former tobacco use History of COVID-19 History of DVT (deep vein thrombosis) Coronary artery disease Essential hypertension Tubular adenoma of colon Chronic diastolic heart failure ANABELL (obstructive sleep apnea) Insomnia Vitamin D deficiency Proteinuria BPH (benign prostatic hyperplasia) Restless leg syndrome Hypertensive heart disease with acute diastolic congestive heart failure Mixed hyperlipidemia Allergic rhinitis Diabetes Depression GERD (gastroesophageal reflux disease) Obesity Hypothyroid CHF (congestive heart failure) Hyperlipidemia Home Medications ?Medication ?Instructions ?Recorded ?Last Taken ?Type aspirin 81 mg chewable tablet 81 mg PO DAILY heart health 03/10/13 04/14/24 History atorvastatin 40 mg tablet 40 mg PO QHS cholesterol 03/10/13 04/13/24 History isosorbide mononitrate 30 mg 30 mg PO DAILY heart 03/10/13 04/14/24 History tablet,extended release 24 hr levothyroxine 200 mcg tablet 200 mcg PO DAILY thyroid 03/10/13 04/14/24 History (Levoxyl) losartan 50 mg tablet 50 mg PO DAILY blood pressure 03/10/13 04/14/24 History metoprolol tartrate 50 mg tablet 50 mg PO DAILY blood pressure 03/10/13 04/14/24 History nitroglycerin 0.4 mg sublingual 0.4 mg sublingual Q5M PRN Chest 03/10/13 05/02/18 History tablet Pain sertraline 50 mg tablet 50 mg PO DAILY mental health 04/14/15 05/02/18 History sitagliptin phosphate 100 mg 100 mg PO DAILY diabetes 04/14/15 05/02/18 History tablet (Januvia) famotidine 10 mg tablet 10 mg PO BID reflux 02/18/21 04/14/24 History furosemide 20 mg tablet 20 mg PO BID diuretic 02/18/21 04/14/24 History magnesium oxide 400 mg (241.3 mg 400 mg PO DAILY supplement 02/18/21 04/14/24 History magnesium) tablet semaglutide 0.25 mg or 0.5 mg (2 0.5 mg subcut TH diabetes 02/18/21 Unknown History mg/1.5 mL) subcutaneous pen injector (Ozempic) trospium 20 mg tablet 20 mg PO BID bladder 02/18/21 04/14/24 History carbidopa ER 25 mg-levodopa 100 mg 1 tab PO QHS 04/14/24 04/13/24 History tablet,extended release insulin glargine 100 unit/mL (3 45 unit subcut DAILY 04/14/24 04/14/24 History mL) subcutaneous pen (Lantus Solostar U-100 Insulin) multivitamin with iron 1 tab PO DAILY 04/14/24 04/14/24 History vit C 250 mg-vit E 90 mg-zinc 40 1 tab PO BID 04/14/24 04/14/24 History mg-copper 1 [id number] capsule (PreserVision AREDS-2) Allergy/AdvReac Type Severity Reaction Status Date / Time Anesthetics - Amide Type - Allergy Other Verified 10/02/22 14:21 Select A [facility]esthetics - Rivka Type- Allergy Other Verified 10/02/22 14:21 Parabens albuterol AdvReac Mild thrush Verified 05/19/21 18:40 Family History Father CAD (coronary artery disease) Myocardial infarction Diabetes Heart disease Hypertension Brother Hypertension Diabetes Mother No problems noted. Surgical History S/P thyroidectomy S/P arthroscopic knee surgery S/P hemorrhoidectomy Hx of elbow surgery S/P CABG x 4 S/P coronary artery stent placement Hx of mitral valve repair Social History household members: spouse Smoking Status: Former smoker quit date: 09/26/73 pack-years: 5 how long ago did patient quit smoking: Additional chew tobacco use history, quit 01/15/2007. alcohol intake: never substance use type: does not use ROS ROS Narrative Admission Review of Systems: CONSTITUTIONAL: No weight loss, fever, chills, + weakness or fatigue. HEENT: Eyes: No visual loss, blurred vision, double vision or yellow sclerae. Ears, Nose, Throat: No hearing loss, sneezing, congestion, runny nose or sore throat. SKIN: No rash or itching, lesions, wounds except occasional stage ecchymoses, abrasions. CARDIOVASCULAR: + Mild chronic bilateral lower extremity not markedly pitting edema. No chest pain, chest pressure or chest discomfort, palpitations, orthopnea, syncopal events. RESPIRATORY: No shortness of breath, cough or sputum, wheezing, hemoptysis. GASTROINTESTINAL: + anorexia. No nausea, vomiting or diarrhea, abdominal pain, melena, BRBPR. GENITOURINARY: No dysuria, frequency, urgency or retention. NEUROLOGICAL: No headache, dizziness, syncope, paralysis, ataxia, numbness or tingling in the extremities, focal weakness, change in bowel or bladder control, seizure. MUSCULOSKELETAL: + muscle, back pain, joint pain or stiffness. HEMATOLOGIC: No anemia. + Easy bleeding/bruising. LYMPHATICS: No enlarged nodes. No history of splenectomy. PSYCHIATRIC: + History of anxiety and depression. ENDOCRINOLOGIC: No reports of sweating, cold or heat intolerance. No polyuria or polydipsia. ALLERGIES: No history of asthma, hives, eczema or rhinitis. Vital Signs Vital Signs Vital Signs: 04/14/24 10:42 Temperature 98.5 F Temperature Source Oral Pulse Rate 93 Respiratory Rate 18 Blood Pressure 110/56 L Blood Pressure Mean 74 Pulse Ox 98 Oxygen Delivery Method Room Air Weight Weight: 233 lb 11.04 oz Body Mass Index (BMI) 36.6 Physical Exam Narrative Physical Examination: General: Awake, alert, oriented x 3 and cooperative, laying in the ED bed, fatigued, notes currently pain controlled, with any weightbearing attempt however 8 out of 10 in severity to the left hip. Skin: Normal color, normal turgor, no icterus, no cyanosis except occasional stage ecchymoses, abrasion HEENT: AT/NC, EOMI, PERRLA, mildly dry MM, no carotid bruits or JVD noted. Lungs: CTA bilaterally, moderate effort, mild decrease BL bases, no rales, ronchi or wheezing. Heart: Regular rate and rhythm; no gallop, rub audible. Abdomen: Soft, obese, NTTP, ND, normal BS, no appreciated HSM. Extremities: No cyanosis, no clubbing, mild bilateral lower extremity pedal to distal penn not markedly pitting edema. Neurological: Patient awake, alert, oriented as noted, cognitive function intact; pupils equally reactive to light and accommodation, cranial nerves II- XII grossly normal, moving all 4 extremities however significantly limited with any weight bearing activities in the bed with severe 8 out of 10 pain elicited to the left hip, strength accordingly severely globally decreased. Psychiatric: Affect appears fatigued, no acute evidence of depressive or anxiety feelings but does have underlying history. Results Lab / Micro Data 04/14/24 11:09 04/14/24 11:09 Labs: Laboratory Results - last 24 hr 04/14/24 11:09: WBC 6.4, RBC 4.72, Hgb 14.7, Hct 44.3, MCV 93.9, MCH 31.1, MCHC 33.2, RDW Std Deviation 46.1 H, RDW Coeff of Luther 13.5, Plt Count 129 L, MPV 10.4, Immature Gran % (Auto) 0.300, Neut % (Auto) 63.6, Lymph % (Auto) 20.7, [place] % (Auto) 10.0, Eos % (Auto) 4.9, Baso % (Auto) 0.5, Absolute Neuts (auto) 4.1, Absolute Lymphs (auto) 1.32, Nucleated RBC % 0, Sodium 138, Potassium 3.7, Chloride 106, Carbon Dioxide 26.0, Anion Gap 6, BUN 26 H, Creatinine 1.70 H, Estim Creat Clear Calc 40.90, Est GFR (MDRD) Af Amer 50 L, Est GFR (MDRD) Non-Af 42 L, BUN/Creatinine Ratio 15.3, Glucose 194 H, Calcium 8.7 Imaging Radiology Impression Hip/Pelvis X-Ray 04/14/24 10:57 IMPRESSION: Mild degenerative arthrosis of the hip joints bilaterally. No demonstrated acute fracture. Electronically Signed: Chente Howe MD at 12:13 EST , Ribs w/Chest X-Ray 04/14/24 11:34 IMPRESSION: RIBS: No acute left rib fracture. CHEST: Cardiomegaly. Electronically Signed: Chente Howe MD at 12:10 EST , Lower Extremity CT 04/14/24 12:11 IMPRESSION: Nondisplaced comminuted fracture of the left greater trochanter. Electronically Signed: Christin Villeda MD at 13:30 EST , Assessment & Plan Assessment/Plan (1) Fracture of greater trochanter: PLAN: Plan The patient is a 79 y/o M w/ PMHx: Former tobacco use, CKD stage III unclear subtype per GFR trending, Chronic thrombocytopenia, Obesity, Hx VTE (DVT), Hx COVID-19, HTN, HLD, HFpEF, ANABELL, RLS, BPH with obstructive pathology, Anxiety and Depression, Hypothyroidism, Diabetes mellitus type II, CAD s/p CABG x 4 and PCI, Valvular Heart Disease s/p MV repair who presents to the [facility] ED on 04/14/24 with history of mechanical fall unfortunately 2 days prior to current presentation on Saturday with significant pain to the left leg and hip with inability to bear weight occurring when he slipped while taking the trash out falling on the ice with since then utilization of a walker and required continuous sitting secondary to inability to even stand or bear weight with severe pain with any movement attempts with also left rib pain with no loss consciousness or head trauma eventually prompting family to call EMS secondary to severe debility and pain. #1. General debility, L hip pain s/p mechanical fall w/ nondisplaced comminuted fracture of the left greater trochanteric: Orthopedic surgery discussed case with ED physician. Will admit to [facility], continue gentle IVFs, monitor I/Os, frequent positioning, fall precautions, Pain/anti-emetic regimen. Per Orthopedic surgery this is nonoperative, weight bearing as tolerated, PT/OT/CM consulted for discharge planning to skilled facility. Will plan upon discharge follow-up with Dr. Patel but will defer consult inpatient given nonoperative. #2. Chronic thrombocytopenia, unclear etiology: Admission platelet 129, prior to this noted 148 and remotely has been in the 130s, will continue to trend CBC, utilize chemoprophylaxis cautiously. #3. Chronic Kidney Disease Stage III, unclear subtype per GFR trend: Admission BUN/Cr 26/1.70, GFR 42, baseline renal function primarily 1.5-1.9 although this is remote, most recently prior to this 05/20/2021 creatinine 1.59, repeat BMP in AM. #4. Diabetes mellitus type II: Hold oral regimen, temporally hold Ozempic, continue home insulin regimen, ADA diet, accu checks w/ ISS. #5. Hypothyroidism: We will continue patient on levothyroxine regimen. #6. Hypertension: Continue home regimen including isosorbide, metoprolol, losartan, Lasix, PRN hydralazine. #7. Hyperlipidemia: Continue patient home statin therapy. #8. CAD: Status post CABG x 4 and PCI, continue aspirin, statin, metoprolol, losartan home regimen. #9. HFpEF: Most recent echocardiogram noted below, we will continue patient aspirin, statin, metoprolol, losartan, Lasix home regimen, judiciously hydrate if necessary. #10. Valvular heart disease: Status post MV repair, last echo noted with mild segmental systolic dysfunction, EF 50%, mildly enlarged LA, annuloplasty ring noted in mitral position, trivial transvalvular insufficiency of the mitral valve, trivial tricuspid valve insufficiency, diastolic function indeterminate. #11. Anxiety and depression: We will continue patient on sertraline regimen. #12. Obesity: Weight loss and lifestyle changes encouraged. #13. Restless leg syndrome: We will continue patient home nightly Sinemet regimen. #14. History of VTE: Patient with previous history DVT, maintained on chemoprophylaxis is noted. #15. GERD: Continue patient on famotidine regimen. #16. ANABELL: PAP therapy nightly if amenable. #17. BPH with obstructive pathology: Not on any regimen per current list, clarified to be certain. #18. Former tobacco use: Encourage continued tobacco cessation. #19. DVT Prophylaxis: Lovenox. #20. CODE status: Patient is uncertain if he has technical healthcare power of compliance attorney and living will set up but he notes his who is present would be his medical decision-maker if necessary. Discussed CODE status at length including difference between FULL code, DNR-CCA and DNR-CC status. Following discussions about the differences in these status, requested DNR-CCA with allowance of intubation. Several discussions were had therefore noted to patient that he certainly could change his mind at any point to a different status. Advanced Care Planning Face to Face Time: 16 minutes. Charges/Coding Visit Charges Inpatient E&M: 02905 Init Hosp L3 Procedures Hospitalists Procedures: 95159 Advncd Care Plan 30 Min
[2024-04-14 14:41] VITALS: BP 134/85; PULSE 88; RESP 17; O2SAT 98
[2024-04-14 14:49] VITALS: BP 134/85; PULSE 88; RESP 17; TEMP 36.8; O2SAT 98
--- NOTE | 2024-04-14 14:52 | EKG12_ITS ---
Test Reason : FALL/HIP PAIN Blood Pressure : */* mmHG Vent. 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
--- NOTE | 2024-04-14 15:19 | ED.RN ---
Called [facility], had to leave a message. Voicemail stated they would call back within 24 hours.
[2024-04-14 15:22] LABS: Magnesium 2.4 mg/dL (1.6-2.6)
[2024-04-14 16:46] VITALS: BP 130/107; PULSE 90; RESP 18; TEMP 36.5; O2SAT 93
[2024-04-14 16:47] VITALS: BMI 33.5
--- NOTE | 2024-04-14 16:54 | NURSING ---
pt states that the [place] has home health nurses that help him with his medications. spouse at bedside states she will bring in a list of pt home medications tomorrow when she comes in.
[2024-04-14 17:00] LABS: Bedside Glucose 106 mg/dL (74-106)
--- NOTE | 2024-04-14 17:02 | ED.RN ---
[facility] called and wanted the chart [facility]ed to them. Chart is faxed.
--- NOTE | 2024-04-14 17:08 | NURSING ---
pt has dexcom monitoring device on his left upper arm. pt also has [employer] hearing aides in.
[2024-04-14] MEDS: Famotidine 20 MG Tablet 10 MG PO (20:02)
[2024-04-14] MEDS: Insulin Lispro 100 UNIT/ML INSULN.PEN SC (20:03)
[2024-04-14] MEDS: Atorvastatin Calcium 40 MG Tablet PO (20:03)
[2024-04-14 20:06] VITALS: BP 130/85; PULSE 90; RESP 16; TEMP 37.2; O2SAT 94
[2024-04-14 20:49] LABS: Bedside Glucose 188 mg/dL (74-106)
[2024-04-15 02:26] VITALS: BP 139/87; PULSE 90; RESP 16; TEMP 36.5; O2SAT 94
[2024-04-15] MEDS: Levothyroxine 100 MCG Tablet 200 MCG PO (06:16)
[2024-04-15] MEDS: Enoxaparin 40 MG/0.4 ML Syringe SC (06:16)
[2024-04-15] MEDS: Acetaminophen 325 MG Tablet 650 MG PO ×3 (06:16→19:58)
[2024-04-15] MEDS: Insulin Lispro 100 UNIT/ML INSULN.PEN SC ×3 (06:16→20:07)
[2024-04-15 06:56] LABS: Absolute Lymphocyte Count 1.49 X10^3/uL (0.83-4.51); Basophil# 0.03 X10^3/uL; Basophil% 0.5 % (0-1); Eosinophil# 0.37 X10^3/uL; Eosinophils% 5.6 % (0-5); Hematocrit 44.1 % (40-54); Hemoglobin 14.5 g/dL (13.0-16.5); Lymphocyte # 1.49 X10^3/ul (0.83-4.51); Lymphocyte % 22.4 % (19-41); Mean Corp Hgb Conc 32.9 g/dL (32-36); Mean Corpuscular Volume 94.4 fL (80-94); Mean Platelet Vol. 10.2 fl (6.2-12.0); Monocyte# 0.77 X10^3/uL; Monocyte% 11.6 % (0-10); NRBC Flagged by Analyzer 0 % (0-5); Neutrophil # 3.98 X10^3/uL (2.7-7.7); Neutrophil % 59.6 % (47-70); Platelet Count 130 K/mm3 (150-450); RBC Distribution Width CV 13.7 % (11.6-14.6); RBC Distribution Width SD 47.8 fl (35.1-43.9); Red Blood Count 4.67 M/mm3 (4.6-6.2); White Blood Count 6.7 K/mm3 (4.4-11.0)
[2024-04-15 07:00] LABS: Bedside Glucose 155 mg/dL (74-106)
[2024-04-15 07:17] LABS: AST(SGOT) 12 U/L (15-37); Alanine Aminotransfer ALT/SGPT 20 U/L (16-61); Albumin, Serum 3.2 g/dL (3.2-5.0); Alkaline Phosphatase 92 U/L (45-117); Anion Gap 5 (5-15); BUN 26 mg/dL (7-18); BUN/Creat Ratio 16.8 RATIO (10-20); Calcium,Total 9.1 mg/dL (8.5-10.1); Chloride 108 mmol/L (98-107); Creatinine, Serum 1.55 mg/dL (0.70-1.30); EST Glomerular Filtration Rate 46 mL/min (>60); Est Glom Filt Rate - Afr Amer 56 mL/min (>60); Estimated Creatinine Clearance 42.93 ml/min; Globulin 3.2 g/dL (2.2-4.2); Glucose 143 mg/dL (74-106); Potassium 3.9 mmol/L (3.5-5.1); Protein, Total 6.4 g/dL (6.4-8.2); Sodium Level 140 mmol/L (136-145)
--- NOTE | 2024-04-15 08:03 | PCM.PN.HOSP ---
Reason for Visit Reason for Visit: Diagnoses Displaced fracture of greater trochanter of unspecified femur, initial encounter for closed fracture (04/14/24) Subjective Subjective Patient having pain but was able to get up with physical therapy, denies any other new acute complaints Objective Data Objective Data Vital Signs: Vital Signs Temp Pulse Resp BP Pulse Ox O2 Del Method 97.7 F L 90 16 139/87 H 94 Room Air 04/15/24 02:26 04/15/24 02:26 04/15/24 02:26 04/15/24 02:26 04/15/24 02:26 04/15/24 02:26 Oxygen Delivery Method Room Air Weight: 97.2 kg Body Mass Index (BMI) 33.5 Intake & Output: Intake and Output for Last 24 Hours 04/13/24 04/14/24 04/15/24 23:59 23:59 23:59 Output Total 700 / 700 Balance -700 / -700 Lab / Micro Data 04/15/24 06:38 04/15/24 06:38 Labs: Laboratory Results - last 24 hr 04/14/24 11:09: WBC 6.4, RBC 4.72, Hgb 14.7, Hct 44.3, MCV 93.9, MCH 31.1, MCHC 33.2, RDW Std Deviation 46.1 H, RDW Coeff of Luther 13.5, Plt Count 129 L, MPV 10.4, Immature Gran % (Auto) 0.300, Neut % (Auto) 63.6, Lymph % (Auto) 20.7, [place] % (Auto) 10.0, Eos % (Auto) 4.9, Baso % (Auto) 0.5, Absolute Neuts (auto) 4.1, Absolute Lymphs (auto) 1.32, Nucleated RBC % 0, Sodium 138, Potassium 3.7, Chloride 106, Carbon Dioxide 26.0, Anion Gap 6, BUN 26 H, Creatinine 1.70 H, Estim Creat Clear Calc 40.90, Est GFR (MDRD) Af Amer 50 L, Est GFR (MDRD) Non-Af 42 L, BUN/Creatinine Ratio 15.3, Glucose 194 H, Calcium 8.7, Magnesium 2.4 04/14/24 16:41: POC Glucose 106 04/14/24 19:53: POC Glucose 188 H 04/15/24 06:15: POC Glucose 155 H 04/15/24 06:38: WBC 6.7, RBC 4.67, Hgb 14.5, Hct 44.1, MCV 94.4 H, MCH 31.0, MCHC 32.9, RDW Std Deviation 47.8 H, RDW Coeff of Luther 13.7, Plt Count 130 L, MPV 10.2, Immature Gran % (Auto) 0.300, Neut % (Auto) 59.6, Lymph % (Auto) 22.4, [place] % (Auto) 11.6 H, Eos % (Auto) 5.6 H, Baso % (Auto) 0.5, Absolute Neuts (auto) 4.0, Absolute Lymphs (auto) 1.49, Nucleated RBC % 0, Sodium 140, Potassium 3.9, Chloride 108 H, Carbon Dioxide 27.0, Anion Gap 5, BUN 26 H, Creatinine 1.55 H, Estim Creat Clear Calc 42.93, Est GFR (MDRD) Af Amer 56 L, Est GFR (MDRD) Non-Af 46 L, BUN/Creatinine Ratio 16.8, Glucose 143 H, Calcium 9.1, Total Bilirubin 1.90 H, AST 12 L, ALT 20, Alkaline Phosphatase 92, Total Protein 6.4, Albumin 3.2, Globulin 3.2, Albumin/Globulin Ratio 1.0 Radiography Diagnostic Testing: Radiology Impression Hip/Pelvis X-Ray 04/14/24 10:57 IMPRESSION: Mild degenerative arthrosis of the hip joints bilaterally. No demonstrated acute fracture. Electronically Signed: Chente Howe MD at 12:13 EST Reading Location ID and State: [facility] / [place] , Service support , Ribs w/Chest X-Ray 04/14/24 11:34 IMPRESSION: RIBS: No acute left rib fracture. CHEST: Cardiomegaly. Electronically Signed: Chente Howe MD at 12:10 EST , Lower Extremity CT 04/14/24 12:11 IMPRESSION: Nondisplaced comminuted fracture of the left greater trochanter. Electronically Signed: Christin Villeda MD at 13:30 EST , Physical Exam Narrative General: Alert, oriented, no apparent distress HEENT: Atraumatic, normocephalic Eyes: Anicteric, normal conjunctiva, extraocular movements grossly intact Neck: Supple Respiratory: No wheezes or rhonchi, normal respiratory effort Cardiovascular: Regular rate GI: Soft, nontender, nondistended Extremities: No edema Musculoskeletal: Moving all extremities Neuro: No overt focal neurological deficits Skin: No rashes appreciated Psych: Cooperative Assessment & Plan Assessment/Plan (1) Fracture of greater trochanter: PLAN: Plan # Nondisplaced comminuted fracture of the left greater trochanter -Nonoperative management -Pain control -PT/OT -Suspect patient will need placement -Case management consult -Will need to follow-up with Ortho on discharge #Type 2 diabetes mellitus -Glucose checks and sliding scale insulin -Patient with fairly tight control, want to avoid hypoglycemia so we will slightly decrease insulin glargine, can reincrease if needed #Hypertension -Continue patient's home Imdur, metoprolol (given it is tartrate we will switch 25 twice daily instead of 50 daily) -BP today 98/62's will hold losartan #Hx of chronic heart failure with preserved ejection fraction -By history -Continue home Lasix -Daily weights/I's and O's # History of coronary artery disease/valvular heart disease -Patient with 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 -Continue aspirin, statin, beta-ann # CKD stage III b -Appears to be at baseline -Avoid nephrotoxic agents -Daily BMPs #Hypothyroidism -Continue Synthroid #GERD -Continue famotidine #DVT ppx: Lovenox subcu Toshia Pro MD Time spent in the patient's overall evaluation, decision-making process, review of diagnostic data, adjustment of management, discussion with other providers, nursing and ancillary staff involved in patient's care documentation, 36 Minutes Charges/Coding Visit Charges Inpatient E&M: 04094 Subs Hosp L2
[2024-04-15 08:24] VITALS: BP 137/84; PULSE 90; RESP 18; TEMP 36.6; O2SAT 94
[2024-04-15] MEDS: Losartan Potassium 50 MG Tablet PO (08:34)
[2024-04-15] MEDS: Aspirin 81 MG TAB.CHEW PO (08:34)
[2024-04-15] MEDS: Famotidine 20 MG Tablet 10 MG PO ×2 (08:34→19:59)
[2024-04-15] MEDS: Tolterodine Tartrate 2 MG CAP.SA PO (08:34)
[2024-04-15] MEDS: Magnesium Chloride 64 MG Delay Rel.Tablet 128 MG PO (08:35)
[2024-04-15] MEDS: Senna/Docusate Sodium 1 Tablet 2 TABLET PO (08:36)
[2024-04-15] MEDS: Furosemide 20 MG Tablet PO ×2 (08:36→16:44)
[2024-04-15] MEDS: Isosorbide Mononitrate 30 MG Tablet PO (08:37)
[2024-04-15] MEDS: Insulin Glargine-YFGN 100 UNIT/ML Pen 40 UNIT SC (08:39)
[2024-04-15 08:42] VITALS: PULSE 90
[2024-04-15] MEDS: Metoprolol Tartrate 25 MG Tablet PO (08:42)
[2024-04-15 11:30] VITALS: O2SAT 95
--- NOTE | 2024-04-15 11:37 | CASEMGMT ---
Discharge Planning A list of?SNF providers including quality and resource use data and consistent with the patient's preferred geographic region, medical needs, and insurance network was created in CarePort Guide.? This list was provided to the SW. Pau Farfan Discharge Planning Asst.
--- NOTE | 2024-04-15 11:45 | CASEMGMT ---
STEPHON RUVALCABA assessment: RN PEG to room for initial transition planning/care coordination assessment. STEPHON RUVALCABA introduced self and role at [facility]. Pt sitting up in chair, sitting next to pt. They voice understanding and consent to assessment?at this time. Care providers, pharmacy, and demographics verified/updated at this time. Strata: 2 PCP: Dr Adair [facility] Preferred Pharmacy: [facility] for immediate fill, otherwise gets all maintenance medications [facility] the [facility]. Insurance: VA benefits. Pt and state he also has a [facility] advantage plan. Pt pulled out several insurance cards, including [employer] MCR supplement card, [employer] MCR Part F, and an Rx card. Both pt and state they are not sure which insurances are currently active with or what they are all for. Call placed to registration. They state will look into this and call [facility] STEPHON RUVALCABA back w/findings. Cards given to Bria. Prescription Benefit: VA and may possibly have additional Rx benefits. LNOK: [place], Living Arrangements: Pt lives with in 1 story home with basement w/stair lift. There is a ramp entrance into the home. Pt is independent with ADL's. does home mgnt tasks. Transportation: Pt states drives self and states no transportation concerns. also drives. DME: Pt has the following DME: shower chair, cane, rollator, scooter, lift chair, BIPAP, stair lift, Dexcom CGM and sufficient supplies, back-up glucometer and ramp. SNF/HHC: Pt has been to [facility] in the past and is currently active w/HHC through the [facility]. He has a nurse come every month to manages his medications and another one comes every 2 weeks who manages his DM. Discussed discharge planning, including SNF or [facility]. Pt states he feels it would be best if he goes to a SNF short-term before returning home and in agreement. They may be interested in either going to SNF through the [facility] or through his other insurance, and they would like a list to review, once it is determined what insurance is active. Alona MATA, and STEPHON RUVALCABA, Bria, made aware. Plan: SNF Kath MCDANIEL RN, CM
[2024-04-15 12:18] LABS: Bedside Glucose 218 mg/dL (74-106)
--- NOTE | 2024-04-15 12:37 | CASEMGMT ---
Received tc from [place] in registration that pt has VA benefit and MCR. She states pt did want the VA billed so she will sophia this as active. Update SW and gave her the 3 cards of pt that STEPHON RUVALCABA who did assessment left. She will make pt aware what the cards are.
--- NOTE | 2024-04-15 13:15 | CASEMGMT ---
Addendum entered by Alona Horton 04/15/24 13:21: Social Work- SW returned pt 3 medical cards following verification of coverages through registration. LISA Bauer Original Note: Social Work- SW introduced self and role. A list of SNF providers including quality and resource use data and consistent with the patient?s preferred geographic region, medical needs, and insurance networks were provided from the CarePort Guide. SW provided information on three midnight rule for medicare versus VA authorization process. Pt and will look over lists; SW to follow up on decisions. LISA Bauer
[2024-04-15] MEDS: oxyCODONE 5 MG Tablet PO ×2 (13:40→19:58)
[2024-04-15 14:28] VITALS: BP 98/62; PULSE 95; RESP 18; TEMP 36.8; O2SAT 94
--- NOTE | 2024-04-15 16:02 | CHAPLAIN ---
Type of Pastoral Visit _x__ Initial Visit ___ Follow-up Visit ___ On-call Visit ___ General Patient Visit ___ Spiritual Assessment ___ Family Conference ___ Bereavement ___ Rapid Response ___ Code Blue ___ Other (describe below) Pastoral Care Referral From _x__ Patient ___ Family ___ Nurse ___ Physician ___ Carton Filling Machine Operator ___ Grease Maker ___ Other (describe below) Sacrament/Intervention _x__ Active listening ___ Anointing ___ Rastafarian ___ Bereavement ___ Communion _x__ Ronel exploration ___ _x__ Life review _x__ Prayer ___ Reconciliation ___ Sacrament of Sick ___ Supportive presence ___ Wedding ___ Other (describe below) Pastoral Comments patient is welcoming and explains his fall and current situation; pt states that he is not concerned about going to a rehab place as he has done that before after heart surgery; pt says he is trying to look on the bright side of it; pt expresses thanks to his who is at the bedside for her 55 years with him; pt uses some humor to relate his circumstances and how he is handling it all; pt and spouse are members of a local small [employer] and talk of the 'changes and challenges of that small mandaen now; both are welcoming of prayer and presence
[2024-04-15 17:03] LABS: Bedside Glucose 149 mg/dL (74-106)
[2024-04-15] MEDS: Atorvastatin Calcium 40 MG Tablet PO (19:59)
[2024-04-15] MEDS: CARBIDOPA/LEVODOPA 1 EACH TABLET.ER PO (20:01)
[2024-04-15 20:13] VITALS: BP 93/57; PULSE 92; RESP 16; TEMP 36.8; O2SAT 95
[2024-04-15 21:13] LABS: Bedside Glucose 205 mg/dL (74-106)
[2024-04-16] VITALS (7 sets, daily range): BP systolic 101–138; BP diastolic 66–87; PULSE 86–93; RESP 15–18; TEMP 36.3–37.1; O2SAT 94–96
[2024-04-16] MEDS: Levothyroxine 100 MCG Tablet 200 MCG PO (05:04)
[2024-04-16] MEDS: Enoxaparin 40 MG/0.4 ML Syringe SC (05:04)
[2024-04-16] MEDS: Acetaminophen 325 MG Tablet 650 MG PO (05:04)
[2024-04-16 06:38] LABS: Bedside Glucose 141 mg/dL (74-106)
--- NOTE | 2024-04-16 08:11 | CASEMGMT ---
Addendum entered by Alona Horton 04/16/24 11:58: Social Work- SW met with pt to inform that [facility] accept [facility] or [facility]; [facility] is unable to accept referral. Pt reports that he would like to admit to [facility] under [facility]. DCA advised. Plan: [facility]; pend precrt through [facility] LISA Bauer Original Note: Social Work- ADOLFO met with pt and pt who select [facility] as FOC with [facility] as alternate. DCA notified referrals can be completed. ADOLFO remains available to follow. LISA Bauer
[2024-04-16 08:40] LABS: Hematocrit 43.7 % (40-54); Hemoglobin 14.3 g/dL (13.0-16.5); Mean Corp Hgb Conc 32.7 g/dL (32-36); Mean Corpuscular Hgb 31.3 pg (27.0-32.0); Mean Corpuscular Volume 95.6 fL (80-94); Mean Platelet Vol. 10.6 fl (6.2-12.0); Platelet Count 126 K/mm3 (150-450); RBC Distribution Width CV 13.8 % (11.6-14.6); RBC Distribution Width SD 48.6 fl (35.1-43.9); Red Blood Count 4.57 M/mm3 (4.6-6.2)
[2024-04-16 08:58] LABS: Anion Gap 4 (5-15); BUN 34 mg/dL (7-18); BUN/Creat Ratio 18.2 RATIO (10-20); Chloride 106 mmol/L (98-107); Creatinine, Serum 1.87 mg/dL (0.70-1.30); EST Glomerular Filtration Rate 37 mL/min (>60); Est Glom Filt Rate - Afr Amer 45 mL/min (>60); Estimated Creatinine Clearance 35.58 ml/min; Glucose 131 mg/dL (74-106); Sodium Level 139 mmol/L (136-145)
[2024-04-16] MEDS: Aspirin 81 MG TAB.CHEW PO (09:10)
[2024-04-16] MEDS: Tolterodine Tartrate 2 MG CAP.SA PO (09:10)
[2024-04-16] MEDS: Isosorbide Mononitrate 30 MG Tablet PO (09:10)
[2024-04-16] MEDS: Metoprolol Tartrate 25 MG Tablet PO (09:11)
[2024-04-16] MEDS: Furosemide 20 MG Tablet PO (09:11)
[2024-04-16] MEDS: Famotidine 20 MG Tablet 10 MG PO ×2 (09:11→22:26)
[2024-04-16] MEDS: Magnesium Chloride 64 MG Delay Rel.Tablet 128 MG PO (09:11)
[2024-04-16] MEDS: Insulin Glargine-YFGN 100 UNIT/ML Pen 40 UNIT SC (09:12)
--- NOTE | 2024-04-16 09:14 | CASEMGMT ---
Addendum entered by Pau Farfan 04/16/24 11:07: [facility] and can [facility] under [facility] or [facility]. SW updated. Pau Farfan DC Planning Asst. Original Note: Discharge Planning Referral sent to [facility]. Pt also requested [facility] but they are full. Pau Farfan DC Planning Asst.
[2024-04-16] MEDS: Insulin Lispro 100 UNIT/ML INSULN.PEN SC ×2 (11:20→16:21)
[2024-04-16 11:41] LABS: Bedside Glucose 185 mg/dL (74-106)
--- NOTE | 2024-04-16 12:22 | CASEMGMT ---
Addendum entered by Alona Horton 04/16/24 15:51: Social Work- SW submitted [facility]EC to DC. ADOLFO spoke with Nathan to confirm email addresses to send to. ADOLFO remains available to follow. LISA Bauer Original Note: Social Work- PASRR completed for SNF [facility] to [facility]. DCA notified. LISA Bauer
[2024-04-16] MEDS: oxyCODONE 5 MG Tablet PO (14:07)
[2024-04-16 16:40] LABS: Bedside Glucose 180 mg/dL (74-106)
--- NOTE | 2024-04-16 17:07 | PCM.PN.HOSP ---
Reason for Visit Reason for Visit: Diagnoses Displaced fracture of greater trochanter of unspecified femur, initial encounter for closed fracture (04/14/24) Subjective Subjective Feeling little bit better, has to urinate was getting up to go to the bathroom, no new or acute complaints Objective Data Objective Data Vital Signs: Vital Signs Temp Pulse Resp BP Pulse Ox O2 Del Method 98.7 F 93 18 101/66 94 Room Air 04/16/24 14:50 04/16/24 14:50 04/16/24 14:50 04/16/24 14:50 04/16/24 14:50 04/16/24 14:50 Oxygen Delivery Method Room Air Weight: 97.2 kg Body Mass Index (BMI) 33.5 Intake & Output: Intake and Output for Last 24 Hours 04/14/24 04/15/24 04/16/24 23:59 23:59 23:59 Output Total 700 / 700 1350 / 1350 Balance -700 / -700 -1350 / -1350 Lab / Micro Data 04/16/24 08:30 04/16/24 08:30 Labs: Laboratory Results - last 24 hr 04/15/24 20:06: POC Glucose 205 H 04/16/24 06:07: POC Glucose 141 H 04/16/24 08:30: WBC 6.0, RBC 4.57 L, Hgb 14.3, Hct 43.7, MCV 95.6 H, MCH 31.3, MCHC 32.7, RDW Std Deviation 48.6 H, RDW Coeff of Luther 13.8, Plt Count 126 L, MPV 10.6, Sodium 139, Potassium 4.0, Chloride 106, Carbon Dioxide 29.0, Anion Gap 4 L, BUN 34 H, Creatinine 1.87 H, Estim Creat Clear Calc 35.58, Est GFR (MDRD) Af Amer 45 L, Est GFR (MDRD) Non-Af 37 L, BUN/Creatinine Ratio 18.2, Glucose 131 H, Calcium 9.0 04/16/24 11:19: POC Glucose 185 H 04/16/24 16:20: POC Glucose 180 H Physical Exam Narrative General: Alert, oriented, no apparent distress HEENT: Atraumatic, normocephalic Eyes: extraocular movements grossly intact Neck: Supple Respiratory: normal respiratory effort Cardiovascular: no edema appreciated GI: nondistended Extremities: Moving all extremities Neuro: No overt focal neurological deficits Psych: Cooperative Assessment & Plan Assessment/Plan (1) Fracture of greater trochanter: PLAN: Plan # Nondisplaced comminuted fracture of the left greater trochanter -Nonoperative management -Pain control -PT/OT -Suspect patient will need placement -Case management consult -Will need to follow-up with Ortho on discharge -04/16: Working with PT/OT, awaiting insurance pre-CERT, continue supportive care #Type 2 diabetes mellitus -Glucose checks and sliding scale insulin -Patient with fairly tight control, want to avoid hypoglycemia so we will slightly decrease insulin glargine, can reincrease if needed -04/16: Doing fairly well with current doses of insulin so we will continue #Hypertension -Continue patient's home Imdur, metoprolol (given it is tartrate we will switch 25 twice daily instead of 50 daily) -BP today 98/62's will hold losartan -04/16: Decrease metoprolol further given blood pressure still on the low side and added holding parameters #Hx of chronic heart failure with preserved ejection fraction -By history -Continue home Lasix -Daily weights/I's and O's -04/16: Does not appear to be overloaded and kidney function actually increased on him so Lasix have been held # History of coronary artery disease/valvular heart disease -Patient with 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 -Continue aspirin, statin, beta-ann -04/16: Continuing patient's home meds, decrease beta-ann again as above # CKD stage III b -Appears to be at baseline -Avoid nephrotoxic agents -Daily BMPs -04/16: Kidney function bumped up and patient does not appear to be overloaded, Lasix temporarily held Chronic medical problems: #Hypothyroidism -Continue Synthroid #GERD -Continue famotidine #DVT ppx: Lovenox subcu Toshia Pro MD Time spent in the patient's overall evaluation, decision-making process, review of diagnostic data, adjustment of management, discussion with other providers, nursing and ancillary staff involved in patient's care documentation, 36 Minutes Charges/Coding Visit Charges Inpatient E&M: 17594 Subs Hosp L2
[2024-04-16] MEDS: Atorvastatin Calcium 40 MG Tablet PO (22:25)
[2024-04-16] MEDS: CARBIDOPA/LEVODOPA 1 EACH TABLET.ER PO (22:25)
[2024-04-16] MEDS: Metoprolol Tartrate 25 MG Tablet 12.5 MG PO (22:25)
[2024-04-16 22:55] LABS: Bedside Glucose 124 mg/dL (74-106)
[2024-04-17] VITALS (7 sets, daily range): BP systolic 101–166; BP diastolic 62–96; PULSE 69–92; RESP 15–16; TEMP 36.2–36.7; O2SAT 92–97
[2024-04-17] MEDS: oxyCODONE 5 MG Tablet PO ×3 (03:11→15:19)
[2024-04-17] MEDS: Levothyroxine 100 MCG Tablet 200 MCG PO (06:16)
[2024-04-17] MEDS: Enoxaparin 40 MG/0.4 ML Syringe SC (06:17)
[2024-04-17 06:38] LABS: Bedside Glucose 125 mg/dL (74-106)
[2024-04-17] MEDS: Aspirin 81 MG TAB.CHEW PO (07:28)
[2024-04-17] MEDS: Famotidine 20 MG Tablet 10 MG PO ×2 (07:28→21:39)
[2024-04-17] MEDS: Magnesium Chloride 64 MG Delay Rel.Tablet 128 MG PO (07:28)
[2024-04-17] MEDS: Tolterodine Tartrate 2 MG CAP.SA PO (07:28)
[2024-04-17] MEDS: Isosorbide Mononitrate 30 MG Tablet PO (07:29)
[2024-04-17] MEDS: Metoprolol Tartrate 25 MG Tablet 12.5 MG PO ×2 (07:29→21:39)
[2024-04-17] MEDS: Insulin Glargine-YFGN 100 UNIT/ML Pen 40 UNIT SC (07:30)
[2024-04-17 07:35] LABS: Anion Gap 6 (5-15); BUN 27 mg/dL (7-18); BUN/Creat Ratio 17.5 RATIO (10-20); Calcium,Total 8.9 mg/dL (8.5-10.1); Chloride 107 mmol/L (98-107); Creatinine, Serum 1.54 mg/dL (0.70-1.30); EST Glomerular Filtration Rate 47 mL/min (>60); Est Glom Filt Rate - Afr Amer 56 mL/min (>60); Estimated Creatinine Clearance 43.21 ml/min; Glucose 136 mg/dL (74-106); Potassium 3.6 mmol/L (3.5-5.1); Sodium Level 139 mmol/L (136-145)
[2024-04-17] MEDS: Acetaminophen 325 MG Tablet 650 MG PO ×2 (07:35→15:19)
--- NOTE | 2024-04-17 09:27 | CASEMGMT ---
Social Work- ADOLFO called [facility] at [facility] to follow up on [facility] sent yesterday via email. Nathan reports that she received documentation and precert is in process. Nathan reports there are multiple layers of approval and it can take 1-3+ days for approval. Physician updated. ADOLFO remains available to follow. Plan: [facility]; pending [facility] precert LISA Bauer
[2024-04-17] MEDS: Insulin Lispro 100 UNIT/ML INSULN.PEN SC ×2 (11:39→15:27)
[2024-04-17 11:58] LABS: Bedside Glucose 164 mg/dL (74-106)
--- NOTE | 2024-04-17 16:02 | CASEMGMT ---
[facility] obtained auth to admit. Pau Farfan DC Planning Asst.
--- NOTE | 2024-04-17 16:06 | TREXTCAR_ITS ---
Diet Diet Order/Speech Therapy: 04/14/24 16:29 Diet: Consistent Carb - Calorie Controlled Food consistency:: Easy to Chew Liquid Consistency:: Regular/Thin Dietary Modifications:: No Added Salt Type of Dietary Supplement:: Glucerna Shake Diet Comments: softer foods, pt edentulous How many daily calories?: 1800 calorie Routine Orders/Code Status Suppository Type: Dulcolax 10mg Suppository Frequency: Daily PRN Routine Lab Work: BMP (3-4 days for kidney function) DC O2, CPAP, BIPAP needs Home O2 Discharge instructions: No Therapies Physical Therapy: Eval and Treat Occupational Therapy: Eval and Treat Problem/Diagnosis (1) Fracture of greater trochanter: Status: Acute Code(s): S72.113A - Displaced fracture of greater trochanter of unspecified femur, initial encounter for closed fracture Plan # Nondisplaced comminuted fracture of the left greater trochanter #Type 2 diabetes mellitus #Hypertension -Continue patient's home Imdur, metoprolol (given it is tartrate we will switch 25 twice daily instead of 50 daily) -BP today 98/62's will hold losartan -04/16: Decrease metoprolol further given blood pressure still on the low side and added holding parameters #Hx of chronic heart failure with preserved ejection fraction -By history -Continue home Lasix -Daily weights/I's and O's -04/16: Does not appear to be overloaded and kidney function actually increased on him so Lasix have been held # History of coronary artery disease/valvular heart disease -Patient with 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 -Continue aspirin, statin, beta-ann -04/16: Continuing patient's home meds, decrease beta-ann again as above # CKD stage III b -Appears to be at baseline -Avoid nephrotoxic agents -Daily BMPs -04/16: Kidney function bumped up and patient does not appear to be overloaded, Lasix temporarily held Chronic medical problems: #Hypothyroidism -Continue Synthroid #GERD -Continue famotidine #DVT ppx: Lovenox subcu Toshia Pro MD Time spent in the patient's overall evaluation, decision-making process, review of diagnostic data, adjustment of management, discussion with other providers, nursing and ancillary staff involved in patient's care documentation, 36 Minutes Allergies/Procedures Done in Hospital Allergies Anesthetics - Amide Type - Select A Allergy (Verified 10/02/22 14:21) Other FAMILY HX OF MALIGNANT HYPERTHERMIA WHEN HAD BYPASS - WENT INTO [facility] FOR 21 DAYS WHEN HAD THYROID REMOVED BY DR MC AT [facility] CRASHED BP DROPPED AND HAD TO ABORT OPERATION 1ST TIME AROUND UNSURE OF WHICH ANESTHESIA IT WAS Anesthetics - Rivka Type- Parabens Allergy (Verified 10/02/22 14:21) Other FAMILY HX OF MALIGNANT HYPERTHERMIA WHEN HAD BYPASS - WENT INTO [facility] FOR 21 DAYS WHEN HAD THYROID REMOVED BY DR MC AT [facility] CRASHED BP DROPPED AND HAD TO ABORT OPERATION 1ST TIME AROUND UNSURE OF WHICH ANESTHESIA IT WAS albuterol Adverse Reaction (Mild, Verified 05/19/21 18:40) thrush THRUSH Dietary and Speech Recommendations Dietitian Recommendations/Changes: Continue 1800CCD diet to manage blood sugars. Will add No added salt and easy to chew texture d/t pt with no dentures at this time. Will continue Glucerna for addition protein intake to promote healing. Discharge Plan Admission Admit Date/Time: 04/14/24 14:58 Attending Provider: Toshia Pro Primary Care Provider: Kobi Adair Consulting Providers: Liliane Lowe Discharge Orders/Prescriptions Prescriptions: No Action losartan 50 MG tablet 50 mg PO DAILY Patient Comments: blood pressure atorvastatin 40 MG tablet 40 mg PO QHS Patient Comments: cholesterol isosorbide mononitrate 30 MG tablet 30 mg PO DAILY Patient Comments: BLOOD PRESSURE metoprolol tartrate 50 MG tablet 50 mg PO DAILY nitroglycerin 0.4 MG tablet 0.4 mg sublingual Q5M PRN (Reason: Chest Pain) Patient Comments: chest pain aspirin 81 MG tablet,chewable 81 mg PO DAILY Patient Comments: heart health levothyroxine [Levoxyl] 200 MCG tablet 200 mcg PO DAILY Patient Comments: thyroid sertraline 50 MG tablet 50 mg PO DAILY Ozempic 0.25 mg or 0.5 mg(2 mg/1.5 mL) Pen Injector 0.5 mg SUBCUT TH famotidine 10 mg Tablet 10 mg PO BID furosemide 20 mg tablet 20 mg PO .BIDLX trospium 20 mg Tablet 20 mg PO BID magnesium oxide 400 MG tablet 400 mg PO DAILY Patient Comments: PT UNSURE IF HE STILL TAKES carbidopa-levodopa 25-100 mg tablet extended release 1 tab PO QHS insulin glargine [Lantus Solostar U-100 Insulin] 100 unit/mL (3 mL) insulin pen 45 unit subcut DAILY multivitamin with iron Tablet 1 tab PO DAILY PreserVision AREDS-2 250-90-40-1 mg capsule 1 tab PO BID Referrals / Follow Up: Kobi Adair MD [Primary Care Provider] -
--- NOTE | 2024-04-17 16:06 | PCM.TXEXTCAR ---
Diet Diet Order/Speech Therapy: 04/14/24 16:29 Diet: Consistent Carb - Calorie Controlled Food consistency:: Easy to Chew Liquid Consistency:: Regular/Thin Dietary Modifications:: No Added Salt Type of Dietary Supplement:: Glucerna Shake Diet Comments: softer foods, pt edentulous How many daily calories?: 1800 calorie Routine Orders/Code Status Suppository Type: Dulcolax 10mg Suppository Frequency: Daily PRN Routine Lab Work: BMP (3-4 days for kidney function) DC O2, CPAP, BIPAP needs Home O2 Discharge instructions: No Therapies Physical Therapy: Eval and Treat Occupational Therapy: Eval and Treat Problem/Diagnosis (1) Fracture of greater trochanter: Status: Acute Code(s): S72.113A - Displaced fracture of greater trochanter of unspecified femur, initial encounter for closed fracture Plan # Nondisplaced comminuted fracture of the left greater trochanter #Type 2 diabetes mellitus #Hypertension #Hx of chronic heart failure with preserved ejection fraction # History of coronary artery disease/valvular heart disease # CKD stage III b #Hypothyroidism #GERD Patient is a 79-year-old male history of heart failure with preserved ejection fraction, coronary artery disease with CABG and PCI, mitral valve repair, CKD stage IIIb, diabetes, hypothyroidism, GERD presented [facility] ED on after a fall with left hip pain. He had mechanical fall 2 days prior to presentation when he slipped on ice while taking out the trash but due to the severe pain patient presented to the ED. CT of left hip showed a nondisplaced comminuted fracture of the left greater trochanter. It was discussed with Ortho in the ED and this is nonoperative and was recommended that patient follow-up on discharge and be admitted for placement. Patient did well during admission. Did have uptrending creatinine so Lasix were held but creatinine then stable. Additionally due to patient receiving as needed pain medication his blood pressure was lower and he had his losartan held and metoprolol decreased. Also due to good glucose control his insulin glargine was 40 units. Patient work with therapy and was deemed a candidate for placement for rehab, day of discharge patient aside from pain has no other new or acute complaints. Discharged to [facility] in stable condition with the following discharge instructions: DISCHARGE INSTRUCTIONS PLEASE READ *Please take this with you to your next doctors appointment* -Due to good control your insulin was decreased to 40 units daily -We also due to pain medication your blood pressure was on the lower side 0 losartan has been held any metoprolol has been decreased, his pain requirements decreased these will likely need to be reinitiated -Due to slightly elevated kidney function your Lasix were held, he will be restarted on 20 mg daily -Weigh yourself every day. A sudden weight gain can mean you are retaining fluid. Weigh yourself at the same time of day and in the same kind of clothes. Ideally, weigh yourself first thing in the morning after you empty your bladder, but before you eat breakfast. -Please call your physician if your weight goes up by more than 2 pounds in 1 day or 5 pounds in 1 week. This can be a sign that you are retaining more fluid than you should be. -Would recommend lab work (BMP) to check your kidney function in 3 days through your primary care physician's office. Please call their office upon discharge to obtain order for lab work. -Please call your primary care provider's office upon discharge to schedule a hospital follow up within 1 week. -For any concerning signs or symptoms please call 911 or proceed to the nearest emergency department Allergies/Procedures Done in Hospital Allergies Anesthetics - Amide Type - Select A Allergy (Verified 10/02/22 14:21) Other FAMILY HX OF MALIGNANT HYPERTHERMIA WHEN HAD BYPASS - WENT INTO [facility] FOR 21 DAYS WHEN HAD THYROID REMOVED BY DR MC AT [facility] CRASHED BP DROPPED AND HAD TO ABORT OPERATION 1ST TIME AROUND UNSURE OF WHICH ANESTHESIA IT WAS Anesthetics - Rivka Type- Parabens Allergy (Verified 10/02/22 14:21) Other FAMILY HX OF MALIGNANT HYPERTHERMIA WHEN HAD BYPASS - WENT INTO [facility] FOR 21 DAYS WHEN HAD THYROID REMOVED BY DR MC AT [facility] CRASHED BP DROPPED AND HAD TO ABORT OPERATION 1ST TIME AROUND UNSURE OF WHICH ANESTHESIA IT WAS albuterol Adverse Reaction (Mild, Verified 05/19/21 18:40) thrush THRUSH Type of Care/Length of Stay Estimated LOS: Convalescent Care Less Than 30 days Type of Care Needed: Skilled Rehab Potential: Fair Prognosis: Fair Additional Orders/Day of Discharge Day of Discharge: 04/17/24 Dietary and Speech Recommendations Dietitian Recommendations/Changes: Continue 1800CCD diet to manage blood sugars. Will add No added salt and easy to chew texture d/t pt with no dentures at this time. Will continue Glucerna for addition protein intake to promote healing. Discharge Plan Admission Admit Date/Time: 04/14/24 14:58 Primary Reason for Your Visit: fall with left hip pain Attending Provider: Toshia Pro Primary Care Provider: Kobi Adair Consulting Providers: Liliane Lowe Instructions Patient Instructions: ED Fall Prevention Additional Instructions / Restrictions: DISCHARGE INSTRUCTIONS PLEASE READ *Please take this with you to your next doctors appointment* -Due to good control your insulin was decreased to 40 units daily -We also due to pain medication your blood pressure was on the lower side 0 losartan has been held any metoprolol has been decreased, his pain requirements decreased these will likely need to be reinitiated -Due to slightly elevated kidney function your Lasix were held, he will be restarted on 20 mg daily -Weigh yourself every day. A sudden weight gain can mean you are retaining fluid. Weigh yourself at the same time of day and in the same kind of clothes. Ideally, weigh yourself first thing in the morning after you empty your bladder, but before you eat breakfast. -Please call your physician if your weight goes up by more than 2 pounds in 1 day or 5 pounds in 1 week. This can be a sign that you are retaining more fluid than you should be. -Would recommend lab work (BMP) to check your kidney function in 3 days through your primary care physician's office. Please call their office upon discharge to obtain order for lab work. -Please call your primary care provider's office upon discharge to schedule a hospital follow up within 1 week. -For any concerning signs or symptoms please call 911 or proceed to the nearest emergency department Discharge Orders/Prescriptions Prescriptions: New enoxaparin 40 mg/0.4 mL Syringe 40 mg subcut DAILY 30 Days Qty: 12 0RF oxycodone 5 mg Tablet 5 mg PO Q4H PRN PRN (Reason: MODSEVPAIN) 3 Days Qty: 15 0RF metoprolol tartrate 25 mg Tablet 12.5 mg PO BID 30 Days Qty: 30 0RF sennosides-docusate sodium [Stimulant Laxative Plus] 8.6-50 mg Tablet 2 tab PO BID 30 Days Qty: 120 0RF Continued atorvastatin 40 MG tablet 40 mg PO QHS Patient Comments: cholesterol isosorbide mononitrate 30 MG tablet 30 mg PO DAILY Patient Comments: BLOOD PRESSURE nitroglycerin 0.4 MG tablet 0.4 mg sublingual Q5M PRN (Reason: Chest Pain) Patient Comments: chest pain aspirin 81 MG tablet,chewable 81 mg PO DAILY Patient Comments: heart health levothyroxine [Levoxyl] 200 MCG tablet 200 mcg PO DAILY Patient Comments: thyroid sertraline 50 MG tablet 50 mg PO DAILY Ozempic 0.25 mg or 0.5 mg(2 mg/1.5 mL) Pen Injector 0.5 mg SUBCUT TH famotidine 10 mg Tablet 10 mg PO BID trospium 20 mg Tablet 20 mg PO BID magnesium oxide 400 MG tablet 400 mg PO DAILY Patient Comments: PT UNSURE IF HE STILL TAKES carbidopa-levodopa 25-100 mg tablet extended release 1 tab PO QHS multivitamin with iron Tablet 1 tab PO DAILY PreserVision AREDS-2 250-90-40-1 mg capsule 1 tab PO BID Changed furosemide 20 mg tablet 20 mg PO DAILY Qty: 30 0RF insulin glargine [Lantus Solostar U-100 Insulin] 100 unit/mL (3 mL) insulin pen 40 unit subcut DAILY Qty: 30 0RF Discontinued losartan 50 MG tablet 50 mg PO DAILY Patient Comments: blood pressure metoprolol tartrate 50 MG tablet 50 mg PO DAILY Referrals / Follow Up: Kobi Adair MD [Primary Care Provider] - Within 1 Week Janes Patel DO [Med Staff - Active Staff] - Within 1 Week Disposition Disposition (needs filled in before D/C Order can be placed): Detention Facility
--- NOTE | 2024-04-17 16:15 | CASEMGMT ---
Social Work- ADOLFO received a phone call from [facility], reporting that pt has authorization for SNF. SW updated physician, DCA, and pt . PASRR previously completed. SW completed green sheet in the event that discharge orders are not received while SW on the floor. SW placed green sheet and transport forms on chart. Plan: [facility]; skilled level of care LISA Bauer
[2024-04-17 16:16] LABS: Bedside Glucose 179 mg/dL (74-106)
--- NOTE | 2024-04-17 16:29 | PCM.DC.SUM ---
Providers Date of Admission: 04/14/24 Date of Discharge: 04/17/24 Primary Care Physician: Dr. Kobi Adair MD Reason For Visit: FALL, NONDISPLACED FX LEFT GREATER TROCHANTERIC Diagnosis Discharge Diagnosis (1) Fracture of greater trochanter: Status: Acute Code(s): S72.113A - Displaced fracture of greater trochanter of unspecified femur, initial encounter for closed fracture Plan # Nondisplaced comminuted fracture of the left greater trochanter #Type 2 diabetes mellitus #Hypertension #Hx of chronic heart failure with preserved ejection fraction # History of coronary artery disease/valvular heart disease # CKD stage III b #Hypothyroidism #GERD Medications at Discharge Home Medications aspirin 81 mg chewable tablet 81 mg PO DAILY heart health 03/10/13 atorvastatin 40 mg tablet 40 mg PO QHS cholesterol 03/10/13 isosorbide mononitrate 30 mg tablet,extended release 24 hr 30 mg PO DAILY heart 03/10/13 levothyroxine 200 mcg tablet (Levoxyl) 200 mcg PO DAILY thyroid 03/10/13 nitroglycerin 0.4 mg sublingual tablet 0.4 mg sublingual Q5M PRN Chest Pain 03/10/13 sertraline 50 mg tablet 50 mg PO DAILY mental health 04/14/15 famotidine 10 mg tablet 10 mg PO BID reflux 02/18/21 magnesium oxide 400 mg (241.3 mg magnesium) tablet 400 mg PO DAILY supplement 02/18/21 semaglutide 0.25 mg or 0.5 mg (2 mg/1.5 mL) subcutaneous pen injector (Ozempic) 0.5 mg subcut TH diabetes 02/18/21 trospium 20 mg tablet 20 mg PO BID bladder 02/18/21 carbidopa ER 25 mg-levodopa 100 mg tablet,extended release 1 tab PO QHS 04/14/24 multivitamin with iron 1 tab PO DAILY 04/14/24 vit C 250 mg-vit E 90 mg-zinc 40 mg-copper 1 qb-tdhncl-vpayxi capsule (PreserVision AREDS-2) 1 tab PO BID 04/14/24 enoxaparin 40 mg/0.4 mL subcutaneous syringe 40 mg (0.4 mL) subcut DAILY 30 days #12 mL 04/17/24 furosemide 20 mg tablet 20 mg PO DAILY diuretic #30 tabs 04/17/24 insulin glargine 100 unit/mL (3 mL) subcutaneous pen (Lantus Solostar U-100 Insulin) 40 unit (0.4 mL) subcut DAILY #30 mL 04/17/24 metoprolol tartrate 25 mg tablet 12.5 mg (1/2 x 25 mg) PO BID 30 days #30 tabs 04/17/24 oxycodone 5 mg tablet 5 mg PO Q4H PRN PRN MODSEVPAIN 3 days #15 tabs 04/17/24 sennosides 8.6 mg-docusate sodium 50 mg tablet (Stimulant Laxative Plus) 2 tab PO BID 30 days #120 tabs 04/17/24 Hospital Course Summary of Care Provided Minutes Spent on Discharge: 25 Hospital Course: Patient is a 79-year-old male history of heart failure with preserved ejection fraction, coronary artery disease with CABG and PCI, mitral valve repair, CKD stage IIIb, diabetes, hypothyroidism, GERD presented [facility] ED on after a fall with left hip pain. He had mechanical fall 2 days prior to presentation when he slipped on ice while taking out the trash but due to the severe pain patient presented to the ED. CT of left hip showed a nondisplaced comminuted fracture of the left greater trochanter. It was discussed with Ortho in the ED and this is nonoperative and was recommended that patient follow-up on discharge and be admitted for placement. Patient did well during admission. Did have uptrending creatinine so Lasix were held but creatinine then stable. Additionally due to patient receiving as needed pain medication his blood pressure was lower and he had his losartan held and metoprolol decreased. Also due to good glucose control his insulin glargine was 40 units. Patient work with therapy and was deemed a candidate for placement for rehab, day of discharge patient aside from pain has no other new or acute complaints. Discharged to [facility] in stable condition with the following discharge instructions: DISCHARGE INSTRUCTIONS PLEASE READ *Please take this with you to your next doctors appointment* -Due to good control your insulin was decreased to 40 units daily -We also due to pain medication your blood pressure was on the lower side 0 losartan has been held any metoprolol has been decreased, his pain requirements decreased these will likely need to be reinitiated -Due to slightly elevated kidney function your Lasix were held, he will be restarted on 20 mg daily -Weigh yourself every day. A sudden weight gain can mean you are retaining fluid. Weigh yourself at the same time of day and in the same kind of clothes. Ideally, weigh yourself first thing in the morning after you empty your bladder, but before you eat breakfast. -Please call your physician if your weight goes up by more than 2 pounds in 1 day or 5 pounds in 1 week. This can be a sign that you are retaining more fluid than you should be. -Would recommend lab work (BMP) to check your kidney function in 3 days through your primary care physician's office. Please call their office upon discharge to obtain order for lab work. -Please call your primary care provider's office upon discharge to schedule a hospital follow up within 1 week. -For any concerning signs or symptoms please call 911 or proceed to the nearest emergency department Physical Exam Narrative General: Alert, oriented, no apparent distress HEENT: Atraumatic, normocephalic Eyes: extraocular movements grossly intact Neck: Supple Respiratory: normal respiratory effort Cardiovascular: no edema appreciated GI: nondistended Extremities: Moving all extremities Neuro: No overt focal neurological deficits Psych: Cooperative Weight / BMI Weight Weight: 97.2 kg Body Mass Index (BMI) 33.5 ABG / Lab / Microbiology Data 04/16/24 08:30 04/17/24 06:57 Laboratory: Laboratory Results - last 24 hr 04/16/24 16:20: POC Glucose 180 H 04/16/24 22:29: POC Glucose 124 H 04/17/24 06:15: POC Glucose 125 H 04/17/24 06:57: Sodium 139, Potassium 3.6, Chloride 107, Carbon Dioxide 26.0, Anion Gap 6, BUN 27 H, Creatinine 1.54 H, Estim Creat Clear Calc 43.21, Est GFR (MDRD) Af Amer 56 L, Est GFR (MDRD) Non-Af 47 L, BUN/Creatinine Ratio 17.5, Glucose 136 H, Calcium 8.9 04/17/24 11:38: POC Glucose 164 H 04/17/24 15:26: POC Glucose 179 H D/C Instructions DC O2, CPAP, BIPAP Needs Home O2 Discharge instructions: No Meaningful Use Info Meaningful Use Meaningful Use Diagnoses (Choose all that apply): None applicable Ischemic Stroke Statin Dosing Therapy Reference: STATIN DOSE THERAPY REFERENCE: * Patients > 75 years receive moderate or high dose statin therapy. * Patients 75 years or YOUNGER should receive HIGH intensity statin dose unless contraindicated. You will be required to document reason for non-treatment if statin daily dose does not meet guidelines. HIGH DOSE STATIN THERAPY DAILY Atorvastatin > than or = to 40 mg Rosuvastatin > than or = to 20 mg Amlodipine + Atorvastatin > than or = to 2.5/40 mg Ezetimibe + Simvastatin 10/80 mg Simvastatin 80mg Discharge Plan Admission Admit Date/Time: 04/14/24 14:58 Primary Reason for Your Visit: fall with left hip pain Attending Provider: Toshia Pro Primary Care Provider: Kobi Adair Consulting Providers: Liliane Lowe Instructions Patient Instructions: ED Fall Prevention Additional Instructions / Restrictions: DISCHARGE INSTRUCTIONS PLEASE READ *Please take this with you to your next doctors appointment* -Due to good control your insulin was decreased to 40 units daily -We also due to pain medication your blood pressure was on the lower side 0 losartan has been held any metoprolol has been decreased, his pain requirements decreased these will likely need to be reinitiated -Due to slightly elevated kidney function your Lasix were held, he will be restarted on 20 mg daily -Weigh yourself every day. A sudden weight gain can mean you are retaining fluid. Weigh yourself at the same time of day and in the same kind of clothes. Ideally, weigh yourself first thing in the morning after you empty your bladder, but before you eat breakfast. -Please call your physician if your weight goes up by more than 2 pounds in 1 day or 5 pounds in 1 week. This can be a sign that you are retaining more fluid than you should be. -Would recommend lab work (BMP) to check your kidney function in 3 days through your primary care physician's office. Please call their office upon discharge to obtain order for lab work. -Please call your primary care provider's office upon discharge to schedule a hospital follow up within 1 week. -For any concerning signs or symptoms please call 911 or proceed to the nearest emergency department Discharge Orders/Prescriptions Prescriptions: New enoxaparin 40 mg/0.4 mL Syringe 40 mg subcut DAILY 30 Days Qty: 12 0RF oxycodone 5 mg Tablet 5 mg PO Q4H PRN PRN (Reason: MODSEVPAIN) 3 Days Qty: 15 0RF metoprolol tartrate 25 mg Tablet 12.5 mg PO BID 30 Days Qty: 30 0RF sennosides-docusate sodium [Stimulant Laxative Plus] 8.6-50 mg Tablet 2 tab PO BID 30 Days Qty: 120 0RF Continued atorvastatin 40 MG tablet 40 mg PO QHS Patient Comments: cholesterol isosorbide mononitrate 30 MG tablet 30 mg PO DAILY Patient Comments: BLOOD PRESSURE nitroglycerin 0.4 MG tablet 0.4 mg sublingual Q5M PRN (Reason: Chest Pain) Patient Comments: chest pain aspirin 81 MG tablet,chewable 81 mg PO DAILY Patient Comments: heart health levothyroxine [Levoxyl] 200 MCG tablet 200 mcg PO DAILY Patient Comments: thyroid sertraline 50 MG tablet 50 mg PO DAILY Ozempic 0.25 mg or 0.5 mg(2 mg/1.5 mL) Pen Injector 0.5 mg SUBCUT TH famotidine 10 mg Tablet 10 mg PO BID trospium 20 mg Tablet 20 mg PO BID magnesium oxide 400 MG tablet 400 mg PO DAILY Patient Comments: PT UNSURE IF HE STILL TAKES carbidopa-levodopa 25-100 mg tablet extended release 1 tab PO QHS multivitamin with iron Tablet 1 tab PO DAILY PreserVision AREDS-2 250-90-40-1 mg capsule 1 tab PO BID Changed furosemide 20 mg tablet 20 mg PO DAILY Qty: 30 0RF insulin glargine [Lantus Solostar U-100 Insulin] 100 unit/mL (3 mL) insulin pen 40 unit subcut DAILY Qty: 30 0RF Discontinued losartan 50 MG tablet 50 mg PO DAILY Patient Comments: blood pressure metoprolol tartrate 50 MG tablet 50 mg PO DAILY Referrals / Follow Up: Kobi Adair MD [Primary Care Provider] - Within 1 Week Janes Patel DO [Med Staff - Active Staff] - Within 1 Week Disposition Disposition (needs filled in before D/C Order can be placed): [facility] Charges/Coding Visit Charges Inpatient E&M: 88786 Disch Hosp
--- NOTE | 2024-04-17 16:51 | CASEMGMT ---
Discharge Planning Discharge orders, signed med list and transport time sent to [place]. Physicians will transport patient by wheelchair at 8p. Nursing, SW, pt, and his updated. Pau Farfan DC Planning Asst.
[2024-04-17] MEDS: CARBIDOPA/LEVODOPA 1 EACH TABLET.ER PO (21:38)
[2024-04-17] MEDS: Atorvastatin Calcium 40 MG Tablet PO (21:38)
[2024-04-18 01:55] LABS: Bedside Glucose 150 mg/dL (74-106)
== END 2024-04-18 02:19 | disposition skilled nursing facility (03) | DRG 536 ==
LOC: ED 15:01 → MS3 16:09
PROVIDERS: Admitting Provider Family Medicine; Emergency Provider Emergency Medicine; PCP Family Medicine; Visit Provider Internal Medicine
DX: S72.115A Nondisplaced fracture of greater trochanter of left femur, initial encounter for closed fracture (principal); I13.0 Hypertensive heart and chronic kidney disease with heart failure and stage 1 through stage 4 chronic kidney disease, or unspecified chronic kidney disease; I50.32 Chronic diastolic (congestive) heart failure; N13.8 Other obstructive and reflux uropathy; D69.6 Thrombocytopenia, unspecified; E11.22 Type 2 diabetes mellitus with diabetic chronic kidney disease; N18.32 Chronic kidney disease, stage 3b; E03.9 Hypothyroidism, unspecified; G25.81 Restless legs syndrome; E66.9 Obesity, unspecified; Z95.3 Presence of xenogenic heart valve; M16.0 Bilateral primary osteoarthritis of hip; E78.2 Mixed hyperlipidemia; I25.10 Atherosclerotic heart disease of native coronary artery without angina pectoris; R26.2 Difficulty in walking, not elsewhere classified; K21.9 Gastro-esophageal reflux disease without esophagitis; W18.30XA Fall on same level, unspecified, initial encounter; G47.33 Obstructive sleep apnea (adult) (pediatric); Z86.718 Personal history of other venous thrombosis and embolism; Z86.16 Personal history of COVID-19; Z87.891 Personal history of nicotine dependence; N40.1 Benign prostatic hyperplasia with lower urinary tract symptoms; Z79.82 Long term (current) use of aspirin; Z79.890 Hormone replacement therapy; R07.82 Intercostal pain; Z95.1 Presence of aortocoronary bypass graft; Z95.5 Presence of coronary angioplasty implant and graft; Z79.85 Long-term (current) use of injectable non-insulin antidiabetic drugs; Z79.899 Other long term (current) drug therapy
CPT/HCPCS: 36415; 71101; 73502; 73700; 80048; 80053; 82962; 83735; 85025; 85027; 93005; 94668; 97162; 97166; 97530; 97535; 97802; 99285; A4216; J2405

== ENCOUNTER 2024-09-23 13:13 | Observation (INO) | payer OTHER, SELFPAY ==
[2024-09-23 13:13] VITALS: BP 149/98; PULSE 88; RESP 16; TEMP 36.8; O2SAT 98; BMI 35.7
[2024-09-23 14:36] LABS: Absolute Lymphocyte Count 1.07 X10^3/uL (0.83-4.51); Basophil# 0.04 X10^3/uL; Basophil% 0.6 % (0-1); Eosinophil# 0.17 X10^3/uL; Eosinophils% 2.4 % (0-5); Hematocrit 48.6 % (40-54); Hemoglobin 16.2 g/dL (13.0-16.5); Lymphocyte # 1.07 X10^3/ul (0.83-4.51); Lymphocyte % 15.4 % (19-41); Mean Corp Hgb Conc 33.3 g/dL (32-36); Mean Corpuscular Hgb 31.2 pg (27.0-32.0); Mean Corpuscular Volume 93.5 fL (80-94); Mean Platelet Vol. 10.5 fl (6.2-12.0); Monocyte# 0.63 X10^3/uL; Monocyte% 9.1 % (0-10); NRBC Flagged by Analyzer 0 % (0-5); Neutrophil # 5.03 X10^3/uL (2.7-7.7); Neutrophil % 72.2 % (47-70); Platelet Count 150 K/mm3 (150-450); RBC Distribution Width CV 13.4 % (11.6-14.6); RBC Distribution Width SD 45.6 fl (35.1-43.9)
[2024-09-23 14:59] LABS: ALB/GLOB Ratio 1.6 RATIO (0.9-2.4); AST(SGOT) 23 U/L (<=37); Alanine Aminotransfer ALT/SGPT 13 U/L (<=46); Albumin, Serum 4.3 g/dL (3.4-4.8); Alkaline Phosphatase 124 U/L (40-129); Anion Gap 15 (5-15); BUN 34 mg/dL (4-19); BUN/Creat Ratio 16.3 RATIO (10-20); Calcium,Total 9.2 mg/dL (7.6-11.0); Carbon Dioxide 23.1 mmol/L (21.0-32.0); Chloride 101 mmol/L (98-108); Creatinine, Serum 2.08 mg/dL (0.70-1.20); EST Glomerular Filtration Rate 32 (>60); Estimated Creatinine Clearance 33.03 ml/min (50-250); Globulin 2.7 g/dL (2.2-4.2); Glucose 210 mg/dL (70-99); Lipase 44 U/L (13-75); Potassium 4.4 mmol/L (3.3-5.1); Sodium Level 138 mmol/L (133-145); Total Bilirubin 1.07 mg/dL (0.00-1.30)
[2024-09-23 16:13] VITALS: BP 141/64; PULSE 78; RESP 16; O2SAT 98
--- NOTE | 2024-09-23 17:04 | CT_ITS ---
PROCEDURE: ABDOMEN/PELVIS WITHOUT CONT 09/23/2024 REASON FOR EXAM: LLQ PAIN TECHNIQUE: ABDOMEN/PELVIS WITHOUT CONT Noncontrast technique limits evaluation of the abdominal and pelvic viscera. Coronal and Sagittal reconstruction series were provided. One or more dose reduction techniques were used (e.g., Automated exposure control, adjustment of the mA and/or kV according to patient size, use of iterative reconstruction technique). ORAL CONTRAST TYPE: None. COMPARISON: None. FINDINGS: The peripheral soft tissues are unremarkable. Degenerative changes of the spine. Moderate atherosclerosis. No suspicious lymphadenopathy. The liver is unremarkable. The gallbladder is distended. The pancreas and spleen are unremarkable. Left distal ureter 6 mm calculus with glkkznuw-ie-zqtihx upstream hydroureteronephrosis Severely enlarged prostate. The urinary bladder is unremarkable. Normal caliber large and small bowel. CT/Abdomen/Pelvis without Cont IMPRESSION: Left distal ureter 6 mm calculus with dxgrwjxa-jj-nrgvxb upstream hydroureteron ephrosis. Severe prostatomegaly. Reading Location: [place] [id number]
--- NOTE | 2024-09-23 17:05 | ED.VIS.GI ---
HPI HPI - GI History of Present Illness Chief Complaint: Abd Pain Informant: patient and spouse/S.O. Narrative Narrative: 79-year-old male presenting to the emergency room with a chief complaint of abdominal pain. Patient states he had a normal bowel movement yesterday morning. He states that he developed intermittent sharp pains in the left side of his abdomen yesterday after his bowel movement. He states he feels somewhat bound today. Denies urinary symptoms. He states he vomited in the bathroom after arriving here in the emergency. He denies any fever. No prior abdominal surgeries. He states he had colonoscopy which was normal. He states that he does not a history of diverticulitis or kidney stones. [facility] Medical History Former tobacco use History of COVID-19 History of DVT (deep vein thrombosis) Coronary artery disease Essential hypertension Tubular adenoma of colon Chronic diastolic heart failure ANABELL (obstructive sleep apnea) Insomnia Vitamin D deficiency Proteinuria BPH (benign prostatic hyperplasia) Restless leg syndrome Hypertensive heart disease with acute diastolic congestive heart failure Mixed hyperlipidemia Allergic rhinitis Diabetes Depression GERD (gastroesophageal reflux disease) Obesity Hypothyroid CHF (congestive heart failure) Hyperlipidemia Home Medications ?Medication ?Instructions ?Recorded ?Last Taken ?Type aspirin 81 mg chewable tablet 81 mg PO DAILY heart health 03/10/13 04/14/24 History atorvastatin 40 mg tablet 40 mg PO QHS cholesterol 03/10/13 04/13/24 History isosorbide mononitrate 30 mg 30 mg PO DAILY heart 03/10/13 04/14/24 History tablet,extended release 24 hr levothyroxine 200 mcg tablet 200 mcg PO DAILY thyroid 03/10/13 04/14/24 History (Levoxyl) nitroglycerin 0.4 mg sublingual 0.4 mg sublingual Q5M PRN Chest 03/10/13 05/02/18 History tablet Pain sertraline 50 mg tablet 50 mg PO DAILY mental health 04/14/15 05/02/18 History famotidine 10 mg tablet 10 mg PO BID reflux 02/18/21 04/14/24 History semaglutide 0.25 mg or 0.5 mg (2 0.5 mg subcut TH diabetes 02/18/21 Unknown History mg/1.5 mL) subcutaneous pen injector (Ozempic) carbidopa ER 25 mg-levodopa 100 mg 1 tab PO QHS 04/14/24 04/13/24 History tablet,extended release multivitamin with iron 1 tab PO DAILY 04/14/24 04/14/24 History vit C 250 mg-vit E 90 mg-zinc 40 1 tab PO BID 04/14/24 04/14/24 History mg-copper 1 ye-znszry-jfsodt capsule (PreserVision AREDS-2) enoxaparin 40 mg/0.4 mL 40 mg (0.4 mL) subcut DAILY 30 04/17/24 Unknown Rx subcutaneous syringe days #12 mL furosemide 20 mg tablet 20 mg PO DAILY diuretic #30 tabs 04/17/24 04/14/24 Rx insulin glargine 100 unit/mL (3 40 unit (0.4 mL) subcut DAILY #30 04/17/24 04/14/24 Rx mL) subcutaneous pen (Lantus mL Solostar U-100 Insulin) metoprolol tartrate 25 mg tablet 12.5 mg (1/2 x 25 mg) PO BID 30 04/17/24 Unknown Rx days #30 tabs amlodipine 5 mg tablet 5 mg PO QDAY 05/01/24 Unknown History oxybutynin chloride 10 mg 10 mg PO QDAY 05/01/24 Unknown History tablet,extended release 24 hr Allergy/AdvReac Type Severity Reaction Status Date / Time Anesthetics - Amide Type - Allergy Other Verified 09/23/24 13:16 [facility] - [place] Type- Allergy Other Verified 09/23/24 13:16 Parabens albuterol AdvReac Mild thrush Verified 09/23/24 13:16 Family History Father CAD (coronary artery disease) Myocardial infarction Diabetes Heart disease Hypertension Brother Hypertension Diabetes Mother No problems noted. Surgical History S/P thyroidectomy S/P arthroscopic knee surgery S/P hemorrhoidectomy Hx of elbow surgery S/P CABG x 4 S/P coronary artery stent placement Hx of mitral valve repair Social History household members: spouse Smoking Status: Former smoker quit date: 09/26/73 pack-years: 5 how long ago did patient quit smoking: Additional chew tobacco use history, quit 01/15/2007. alcohol intake: never substance use type: does not use ROS ROS ED Constitutional Constitutional ED: Denies chills, fever(s) or weight loss Eyes Eyes: Denies change in vision or diplopia ENT ENT ED: Denies ear pain, rhinorrhea or sore throat Cardiovascular Cardiovascular: Denies chest pain, orthopnea, palpitations or racing heartbeat Respiratory/Chest Respiratory/Chest: Denies cough, dyspnea or orthopnea Gastrointestinal Gastrointestinal: Reports abdominal pain and nausea; Denies diarrhea or vomiting Genitourinary Genitourinary ED: Denies dysuria, hematuria or urinary frequency Musculoskeletal Musculoskeletal: Denies arthralgias, back pain or myalgias Integumentary Denies abscess or rash Neurologic Neurologic: Denies headache(s) or weakness Psychiatric Psychiatric: Denies anxiety, depression, suicidal ideation or suicidal thoughts Endocrine Endocrinology: Denies polydipsia, polyphagia or polyuria Allergic/Immunologic Allergic/Immunologic ED: Denies mouth swelling, tongue swelling or urticaria EXAM Physical Exam Const Vital Signs: 09/23/24 13:13 09/23/24 16:13 09/23/24 18:00 Temperature 98.3 F 98.6 F Temperature Source Oral Oral Pulse Rate 88 78 89 Respiratory Rate 16 16 18 Blood Pressure 149/98 H 141/64 H 132/78 H Blood Pressure Mean 115 89 96 Pulse Ox 98 98 99 Oxygen Delivery Method Room Air Room Air Room Air Positive well nourished and well developed General Appearance ED: well developed HEENT Reports normocephalic, head/scalp atraumatic and moist mucous membranes Eyes PERRL and EOMs intact bilaterally Neck no lymphadenopathy, supple and no JVD Resp normal respiratory effort and clear to auscultation bilaterally Cardio regular rate, regular rhythm and no murmurs GI Inspection: Negative for abdominal distention Auscultation: normoactive bowel sounds Palpation: soft and tender LLQ and LUQ; Negative for guarding or rebound tenderness present Back/Spine no CVA tenderness and normal ROM Extremity normal to inspection General Extremety ED: Negative for edema General Extremity: Negative for edema Neuro oriented x3 and CN's II-XII intact bilaterally Sensorium / Orientation: alert Motor Exam: strength 5/5 throughout Psych mental status grossly normal Mood & Affect: Negative for depressed or tearful Skin no rashes or lesions noted and no wounds MDM MDM MDM Narrative Medical decision making narrative: Differential diagnosis includes but not limited to diverticulitis colitis ureterolithiasis UTI acute kidney injury Patient's white count returns at 7.0 hemoglobin 16.2 platelet count of 150. Creatinine is 2.08 with a BUN of 34. Lipase [address] of the abdomen pelvis demonstrates a distal to mid ureteral stone measuring 6 to 8 mm with hydronephrosis and hydroureter. Patient was not able to produce a urine specimen for significant amount of time. Urinalysis demonstrates no overt infection. Patient and his were updated with the findings. I spoke with Dr. Conteh from urology. Plan is admission into the hospital and plan for surgery. Patient and his are comfortable with this plan. History & Record Review Discussion w/independent historian: Patient and Significant other Additional record(s) reviewed:: Prior ED visit and Prior labs Lab Data Attestation: I reviewed the patient's lab results. Labs: Laboratory Results - last 24 hr 09/23/24 09/23/24 14:09 19:19 WBC 7.0 RBC 5.20 Hgb 16.2 Hct 48.6 MCV 93.5 MCH 31.2 MCHC 33.3 RDW Std Deviation 45.6 H RDW Coeff of Luther 13.4 Plt Count 150 MPV 10.5 Immature Gran % (Auto) 0.300 Neut % (Auto) 72.2 H Lymph % (Auto) 15.4 L [place] % (Auto) 9.1 Eos % (Auto) 2.4 Baso % (Auto) 0.6 Absolute Neuts (auto) 5.0 Absolute Lymphs (auto) 1.07 Nucleated RBC % 0 Sodium 138 Potassium 4.4 Chloride 101 Carbon Dioxide 23.1 Anion Gap 15 BUN 34 H Creatinine 2.08 H Estim Creat Clear Calc 33.03 L Est GFR (MDRD) Non-Af 32 L BUN/Creatinine Ratio 16.3 Glucose 210 H Calcium 9.2 Total Bilirubin 1.07 AST 23 ALT 13 Alkaline Phosphatase 124 Total Protein 7.0 Albumin 4.3 Globulin 2.7 Albumin/Globulin Ratio 1.6 Lipase 44 Urine Color Yellow Urine Clarity Clear Urine pH 7.0 Ur Specific [place] 1.010 Urine Protein 30 H Urine Glucose (UA) 1000 H Urine Ketones Negative Urine Occult Blood 10 H Urine Nitrite Negative Urine Bilirubin Negative Urine Urobilinogen Normal Ur Leukocyte Esterase Negative Radiography Diagnostic Testing: Clinical Impression(s) from Imaging Studies Abdomen/Pelvis CT 09/23/24 17:04 IMPRESSION: Left distal ureter 6 mm calculus with syyehoxl-ms-bldvlb upstream hydroureteronephrosis. Severe prostatomegaly. Reading Location: [place] [id number] Management Discussion w/another healthcare provider: Recreational Programs Director (Dr. Conteh) Discharge Plan Triage Chief Complaint: Abd Pain ED Provider: Marco Antonio Vazquez Dx/Rx/DC Orders Prescriptions: No Action amlodipine 5 mg tablet 5 mg PO QDAY oxybutynin chloride 10 mg tablet extended release 24hr 10 mg PO QDAY atorvastatin 40 MG tablet 40 mg PO QHS Patient Comments: cholesterol isosorbide mononitrate 30 MG tablet 30 mg PO DAILY Patient Comments: BLOOD PRESSURE nitroglycerin 0.4 MG tablet 0.4 mg sublingual Q5M PRN (Reason: Chest Pain) Patient Comments: chest pain aspirin 81 MG tablet,chewable 81 mg PO DAILY Patient Comments: heart health levothyroxine [Levoxyl] 200 MCG tablet 200 mcg PO DAILY Patient Comments: thyroid sertraline 50 MG tablet 50 mg PO DAILY Ozempic 0.25 mg or 0.5 mg(2 mg/1.5 mL) Pen Injector 0.5 mg SUBCUT TH famotidine 10 mg Tablet 10 mg PO BID carbidopa-levodopa 25-100 mg tablet extended release 1 tab PO QHS multivitamin with iron Tablet 1 tab PO DAILY PreserVision AREDS-2 250-90-40-1 mg capsule 1 tab PO BID enoxaparin 40 mg/0.4 mL Syringe 40 mg subcut DAILY 30 Days Qty: 12 0RF metoprolol tartrate 25 mg Tablet 12.5 mg PO BID 30 Days Qty: 30 0RF furosemide 20 mg tablet 20 mg PO DAILY Qty: 30 0RF insulin glargine [Lantus Solostar U-100 Insulin] 100 unit/mL (3 mL) insulin pen 40 unit subcut DAILY Qty: 30 0RF Primary Care Provider: Kobi Adair Referrals: Kobi Adair MD [Primary Care Provider] - Print Language: Guinean
[2024-09-23] MEDS: 0.9% Normal Saline (500mL Bag) 500 ML 999 ML IV (17:47)
[2024-09-23 18:00] VITALS: BP 132/78; PULSE 89; RESP 18; TEMP 37; O2SAT 99
[2024-09-23 19:29] LABS: Bacteria 0 SEEN /hpf (None Seen); Mucous, Urine 0 SEEN /hpf (<or=2+)
[2024-09-23 19:34] LABS: Color, Urine Yellow (Yellow); Glucose, Dipstick 1000 mg/dl (Normal); Ketone-Dipstick Negative (Negative); Leukocyte Esterase-Dipstick Negative /ul (Negative); Nitrite-Dipstick Negative (Negative); Occult Blood-Urine 10 /ul (Negative); Protein-Dipstick 30 mg/dl (Negative); Urine Bilirubin Dipstick Negative (Negative); Urine Clarity Clear (Clear); Urine Urobilinogen Normal (Normal)
[2024-09-23 20:06] VITALS: BP 158/95; PULSE 85; RESP 18; TEMP 37.3; O2SAT 96
[2024-09-23 20:15] LABS: Red Blood Cells-Urine 0-5 SEEN /hpf (0-5); Squamous Epithelial Cells - UA 0-5 SEEN /hpf (0-5); White Blood Cells 0-5 SEEN /hpf (0-5)
[2024-09-23 21:21] VITALS: BP 137/78; PULSE 87; RESP 18; TEMP 36.4; O2SAT 95
[2024-09-23 21:25] VITALS: BMI 34.7
[2024-09-23] MEDS: 0.9% Normal Saline (1000mL) 1,000 ML 50 ML IV (22:50)
[2024-09-23] MEDS: Morphine 2 MG/ML Syringe IV (22:50)
--- OUTSIDE RECORDS SUMMARY | 2024-09-23 22:50 | XMS RPT_ITS | CCD ---
Author Organization [facility] Care Team Providers Care House Coordinator Name Role Phone GHANSHYAM, JOVANY E Unavailable Unavailable GHANSHYAM, JOVANY E Unavailable Unavailable GHANSHYAM, JOVANY E Unavailable Unavailable GHANSHYAM, JOVANY E Unavailable Unavailable GHANSHYAM, JOVANY Unavailable Unavailable [facility] Unavailable Unavailable GHANSHYAM, JOVANY Unavailable Unavailable GHANSHYAM, JOVANY Unavailable Unavailable GHANSHYAM, JOVANY Unavailable Unavailable GHANSHYAM, JOVANY Unavailable Unavailable NIKIA ADAIR Unavailable Unavailable GHANSHYAM, JOVANY Unavailable Unavailable GHANSHYAM, JOVANY Unavailable Unavailable NIKIA ADAIR Unavailable Unavailable Nikia Adair MD Primary Care Provider Shyam ELAM MD, Lylaung Unavailable Shyam ELAM MD, Lylaung Unavailable Nikia Adair MD Primary Care Provider Shyam ELAM MD, Lylaung Unavailable Shyam ELAM MD, Lylaung Unavailable Nikia Adair MD Primary Care Provider Shyam ELAM MD, Willesung Unavailable Shyam ELAM MD, Daesung Unavailable [facility] Primary Care Provider Clint Howe MD Unavailable Clint Howe MD Unavailable [facility] Primary Care Provider SRIRAM VALLES Referring Unavailable SRIRAM VALLES Attending Unavailable Liliane Lowe Consulting Unavailable Kobi Adair Primary Care Unavailable Liliane Lowe Admitting Unavailable Toshia Pro Attending Unavailable Toshia Pro Consulting Unavailable Kobi Adair Primary Care Unavailable Liliane Lowe Consulting Unavailable Toshia Pro Attending Unavailable Liliane Lowe Admitting Unavailable Liliane Lowe Attending Unavailable ESSIE ARRIETA MD Attending Unavailable ESSIE ARRIETA MD Primary Care Unavailable ESSIE ARRIETA MD Admitting Unavailable Giovany ELAM, Dr. Peace Primary Care Provider Dr. Marco Antonio Vazquez DO Emergency Provider Wero ELAM, Dr. Cory Forte Admit Provider Wero ELAM, Dr. Cory Forte Attending Provider Allergies Allergy Classification Reported Allergen(s) Allergy Type Date of Onset Reaction(s) Facility (19 sources) lovastatin; Translations: [LOVASTATIN] Drug Allergy 8 [facility] Repository (19 sources) INHALED ANESTHETICS (HALOGEN BASED); Translations: [INHALED ANESTHETICS (HALOGEN BASED)] Propensity to adverse reactions to drug (disorder) 8 [facility] Repository (3 sources) albuterol; Translations: [ALBUTEROL] Drug Allergy 2 [facility] Repository Comment on above: [facility] (1 source) Anesthetics - Amide Type - Select A Drug allergy (disorder) 3 [facility] Repository (1 source) Anesthetics - Rivka Type- Parabens Drug allergy (disorder) 3 [facility] Repository (1 source) Anesthetics - Amide Type - Select A Allergy to substance 5 Other [facility] Comment on above: FAMILY HX OF MALIGNA NT HYPERTHERMIA WHEN HAD BYPASS - WENT INTO [facility] FOR 21 DAYS WHEN HAD THYROID REMOVED BY DR MC AT [facility] CRASHED BP DROPPED AND HAD TO ABORT OPERATION 1ST TIME AROUND UNSURE OF WHICH ANESTHESIA IT WAS (1 source) Anesthetics - Rivka Type- Parabens Allergy to substance 5 Other [facility] Comment on above: FAMILY HX OF MALIGNA NT HYPERTHERMIA WHEN HAD BYPASS - WENT INTO [facility] FOR 21 DAYS WHEN HAD THYROID REMOVED BY DR MC AT [facility] CRASHED BP DROPPED AND HAD TO ABORT OPERATION 1ST TIME AROUND UNSURE OF WHICH ANESTHESIA IT WAS Medications Current Medications Medication Drug Class(es) Dates Sig (Normalized) Sig (Original) amLODIPine 5 mg oral tablet (1 source) Dihydropyridine Calcium Channel Ann Start: 05-01-2024 take 1 tablet by mouth once daily Amlodipine 5 mg tablet Active 5 mg PO daily May 01, 2024 1:00am aspirin 81 mg chewable tablet (17 sources) Platelet Aggregation Inhibitor, Nonsteroidal Anti-inflammatory Drug Start: 03-10-2013 take 1 tablet by mouth once daily Aspirin 81 MG tablet,chewable Active 81 mg PO DAILY March 10, 2013 1:00am Start: 08-05-2007 aspirin(ECOTRI N LOW STRENGTH 81 MG TAB) 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 0 0 08/05/2007 Active Comment on above: Take one(1) tablet d aily. atorvastatin 80 mg oral tablet (17 sources) HMG-CoA Reductase Inhibitor Start: take 0.5 tablet by mouth once daily atorvastatin (LIPITOR) 80 mg tablet Take 0.5 tablets by mouth once daily. ID # [id number] 90 tablet 11/21/2020 Active Start: 03-10-2013 take 1 tablet by radha th at bedtime Atorvastatin 40 MG tablet Active 40 mg PO AT BEDTIME March 10, 2013 1:00am Comment on above: Take 0.5 tablets by mouth once daily. ID # [id number] carbidopa 25 mg / levodopa 100 mg extended release oral tablet (18 sources) Aromatic Amino Acid Decarboxylation Inhibitor, Aromatic Amino Acid Start: 08-12-2014 take 1 tablet by mouth every twenty-four hours as needed carbidopa-levodo pa (SINEMET) 25-100 mg per tablet Take 1 tablet by mouth at bedtime as needed. ID # [id number] 90 tablet 3 08/12/2014 Active Start: 03-10-2013 End: 04-14-2024 Carbidopa-Levodopa 25-100 mg tablet extended release Active 1 {tbl} PO AT BEDTIME April 14, 2024 1:00am Comment on above: Take 1 tablet by radha th at bedtime as needed. ID # [id number] clopidogrel 75 mg oral tablet (17 sources) P2Y12 Platelet Inhibitor Start: 09-23-2024 take 1 tablet by mouth once daily Clopidogrel 75 mg tablet Active 75 mg PO DAILY September 23, 2024 12:00am Start: 11-21-2020 take 1 tablet by rdaha th once daily clopidogrel (PLAVIX) 75 mg tablet Take 1 tablet by mouth once daily. 90 tablet 11/21/2020 Active Comment on above: Take 1 tablet by radha th once daily. CPAP (20 sources) Start: 09-14-2015 CPAP Indicatio ns: ANABELL (obstructive sleep apnea) CHIN STRAP with mask refit optimization, USED WITH CPAP DEVICE 1 Device 0 09/14/2015 Active Start: 07-26-2015 CPAP Indicatio ns: ANABELL (obstructive sleep apnea) Please dispense a full face mask for PAP therapy. He liked medium Kristine View full face mask during titration study. Dx ANABELL 1 Device 0 07/26/2015 Active Start: 05-17-2015 CPAP Indicatio ns: ANABELL (obstructive sleep apnea) , Treatment emergent central sleep apnea Pressure change: Bilevel PAP 19/15 cmH2O. Please fax 30 day compliance download to [phone]. Dx: ANABELL, treatment emergent CSA 1 Device 0 05/17/2015 Active Comment on above: Pressure change: Cordell evel PAP 19/15 cmH2O. Please fax 30 day compliance download to [phone]. Dx: ANABELL, treatment emergent CSA Please dispense a fu ll face mask for PAP therapy. He liked medium Kristine View full face mask during titration study. Dx ANABELL CHIN STRAP with mask refit optimization, USED WITH CPAP DEVICE famotidine 10 mg oral tablet (17 sources) Histamine-2 Receptor Antagonist Start: 1 take 1 tablet by mouth twice daily Famotidine 10 mg Tablet Active 10 mg PO TWICE A DAY February 18, 2021 1:00am Comment on above: Take 1 tablet by radha th twice daily. furosemide 20 mg oral tablet (19 sources) Loop Diuretic Start: 1 End: 5 take 1 tablet by mouth once daily Furosemide 20 mg tablet Active 20 mg PO DAILY April 17, 2024 5:18pm Start: 11-21-2020 take 1 tablet by radha th twice daily furosemide (LASIX) 20 mg tablet Indications: DORANTES (dyspnea on exertion) Take 1 tablet by mouth twice daily. 180 tablet 11/21/2020 Active Start: 03-10-2013 End: 04-30-2013 Furosemide 40 MG tablet Disc ontinued 20 mg PO DAILY March 10, 2013 1:00am April 30, 2013 3:28pm Comment on above: Take 1 tablet by radha twice daily. 3 ml insulin aspart, human 100 unt/ml pen injector (1 source) Insulin Analog Start: 09-23-2024 Insulin Aspart U-100 (Novolog Flexpen U-100 Insulin) 100 unit/mL (3 mL) insulin pen Active 8 U SC EVERY EVENING September 23, 2024 12:00am 3 ml insulin glargine 100 unt/ml pen injector (18 sources) Insulin Analog Start: 09-23-2024 Insulin Glargine (Lantus Solostar U-100 Insulin) 100 unit/mL (3 mL) insulin pen Active 30 U SC DAILY September 23, 2024 12:00am Start: 04-17-2024 End: 09-23-2024 Insulin Glargine (Lantus June ostar U-100 Insulin) 100 unit/mL (3 mL) insulin pen Discontinued 40 U SC DAILY April 17, 2024 5:18pm September 23, 2024 8:25pm Start: 04-14-2024 End: 04-17-2024 Insulin Glargine (Lantus June ostar U-100 Insulin) 100 unit/mL (3 mL) insulin pen Discontinued 45 U SC DAILY April 14, 2024 1:00am April 17, 2024 5:18pm Start: 09-08-2021 insulin glargi ne (LANTUS SOLOSTAR U-100 INSULIN) 100 unit/mL (3 mL) Indications: Type 2 diabetes mellitus with diabetic polyneuropathy, with long-term current use of insulin (HCC) Inject 55 Units subcutaneously once daily as directed 5 Pen 3 09/08/2021 Active Start: 05-29-2021 insulin glargi ne (LANTUS SOLOSTAR U-100 INSULIN) 100 unit/mL (3 mL) Inject 48 Units subcutaneously once daily as directed 5 Pen 3 05/29/2021 Active Comment on above: Inject 48 Units subc utaneously once daily as directed Inject 55 Units subc utaneously once daily as directed insulin lispro 100 unt/ml injectable solution (16 sources) Insulin Analog Start: inject 22 [IU] by subcutaneous injection at dinner insulin lispro (HUMALOG U-100 INSULIN) 100 unit/mL injection Indications: Type 2 diabetes mellitus with diabetic polyneuropathy, with long-term current use of insulin (HCC) Take 22 units subcutaneously with dinner 1 Vial 09/08/2021 Active Start: 05-29-2021 inject 15 [IU] by pretty bcutaneous injection at mealtime insulin lispro (HUMALOG U-100 INSULIN) 100 unit/mL injection Take 15 units subcutaneously with meals 1 Vial 0 05/29/2021 Active insulin lispro ( HUMALOG KWIKPEN) 100 unit/mL pen Inject 15 Units subcutaneously daily before dinner. 0 Active Comment on above: Inject 15 Units subc utaneously daily before dinner. Take 15 units subcut aneously with meals Take 22 units subcut aneously with dinner 24 hr isosorbide mononitrate 30 mg extended release oral tablet (17 sources) Nitrate Vasodilator Start: 013 End: 025 take 1 tablet by mouth once daily, then take 1 tablet by mouth every twenty-four hours isosorbide mononitrate ER (IMDUR) 30 mg 24 hr tablet Take 30 mg by mouth once daily. 0 02/27/2016 Active Comment on above: Take 30 mg by mouth once daily. levothyroxine sodium 0.025 mg oral tablet (20 sources) l-Thyroxine Start: 021 take 1 tablet by mouth once daily for thyroid dysfunction levothyroxine (SYNTHROID) 25 mcg tablet Indications: Hypothyroidism, acquired Take 1 tablet by mouth once daily. Take on empty stomach. For thyroid. 30 tablet 2 03/16/2021 Active Start: 03-10-2013 levothyroxine (SYNTHROID) 200 mcg tablet Indications: Hypothyroidism, acquired Take one tablet daily. 30 tablet 1 08/29/2019 Active Comment on above: Take one tablet magdaleno y. Take 1 tablet by radha th once daily. Take on empty stomach. For thyroid. losartan potassium 25 mg oral tablet (18 sources) Angiotensin 2 Receptor Ann Start: 09-23-2024 Losartan 25 mg tablet Active 12.5 mg PO DAILY September 23, 2024 12:00am Start: 06-17-2020 take 1 tablet by radha th once daily losartan (COZAAR) 100 mg tablet Take 1 tablet by mouth once daily. ID # [id number] 30 tablet 5 06/17/2020 Active Start: 03-10-2013 End: 04-17-2024 take 1 tablet by mouth once daily Losartan 50 MG tablet Discontinued 50 mg PO DAILY March 10, 2013 1:00am April 17, 2024 5:16pm Comment on above: Take 1 tablet by radha once daily. ID # [id number] metoprolol tartrate 25 mg oral tablet (18 sources) beta-Adrenergic Ann Start: 04-17-2024 Metoprolol Tartrate 25 mg Tablet Active 12.5 mg PO TWICE A DAY 30 April 17, 2024 1:00am Start: 12-14-2020 metoprolol tar trate, short acting, (LOPRESSOR) 50 mg tablet Indications: Essential hypertension Take 2 tablets in AM and 1.5 tablets in the evening 90 tablet 1 12/14/2020 Active Start: 03-10-2013 End: 04-17-2024 take 1 tablet by mouth once daily Metoprolol Tartrate 50 MG tablet Discontinued 50 mg PO DAILY March 10, 2013 1:00am April 17, 2024 5:16pm Comment on above: Take 2 tablets in AM and 1.5 tablets in the evening Multivitamin With Iron tablet (1 source) Start: 04-14-2024 Multivitamin With Iron tablet Active 1 {tbl} PO DAILY April 14, 2024 1:00am nitroglycerin 0.4 mg sublingual tablet (17 sources) Nitrate Vasodilator Start: 03-10-2013 nitroglycerin sublingual (NITROSTAT) 0.4 mg SL tablet Dissolve 1 tablet under the tongue as needed. FOR CHEST PAIN. IF NO RELIEF CALL 911 1 Bottle of 25 6 06/16/2018 Active Comment on above: Dissolve 1 tablet un emmanuel the tongue as needed. FOR CHEST PAIN. IF NO RELIEF CALL 911 perflutren lipid microspheres 1.3 mL in NaCl (PF) 0.9% 10 mL injection (DEFINITY) (12 sources) Start: 05-14-2022 End: 08-13-2023 perflutren lipid microspheres 1.3 mL in NaCl (PF) 0.9% 10 mL injection (DEFINITY) Start: 11-14-2020 End: 02-13-2022 perflutren lipid microsphere s 1.3 mL in NaCl (PF) 0.9% 10 mL injection (DEFINITY) potassium chloride 10 meq extended release oral tablet (17 sources) Start: 09-23-2024 Potassium Chlo ride (Klor-Con 10) 10 mEq tablet extended release Active 10 meq PO DAILY September 23, 2024 12:00am Start: 07-08-2015 take 1 tablet by radha th once daily potassium chloride ER (K-DUR, KLOR-CON) 10 mEq tablet Indications: DORANTES (dyspnea on exertion) Take 1 tablet by mouth once daily. 30 tablet 1 07/08/2015 Active Comment on above: Take 1 tablet by radha th once daily. 0.25 mg, 0.5 mg dose 1.5 ml semaglutide 1.34 mg/ml pen injector (17 sources) Start: 05-29-2021 semaglutide (OZEMPIC) 0.25 mg or 0.5 mg(2 mg/1.5 mL) pen injector Inject 1 mg weekly every Thrusday 1 Each 05/29/2021 Active Start: 02-18-2021 Semaglutide (O zempic) 0.25 mg or 0.5 mg(2 mg/1.5 mL) Pen Injector Active 0.5 mg SC February 18, 2021 1:00am Comment on above: Inject 1 mg weekly e very Thrusday sertraline 50 mg oral tablet (17 sources) Serotonin Reuptake Inhibitor Start: 02-02-2015 take 1 tablet by mouth once daily Sertraline 50 MG tablet Active 50 mg PO DAILY April 14, 2015 1:00am Comment on above: Take 1 tablet by radha once daily. 125 ml sodium chloride 9 mg/ml prefilled syringe (12 sources) Start: 05-14-2022 End: 08-13-2023 sodium chloride 0.9 % (flush) 10 mL (BD POSIFLUSH) Start: 11-14-2020 End: 02-13-2022 sodium chloride 0.9 % (flush ) 10 mL (BD POSIFLUSH) tamsulosin hydrochloride 0.4 mg oral capsule (17 sources) alpha-Adrenergic Ann Start: 09-23-2024 take 2 capsules by mouth at bedtime Tamsulosin (Flomax) 0.4 mg capsule Active 0.8 mg PO AT BEDTIME September 23, 2024 12:00am Start: 08-07-2018 take 2 capsules by m outh once daily at bedtime tamsulosin (FLOMAX) 0.4 mg Take 2 capsules by mouth daily at bedtime. 08/07/2018 Active Comment on above: Take 2 capsules by m outh daily at bedtime. trospium chloride 20 mg oral tablet (18 sources) Cholinergic Muscarinic Antagonist Start: 09-23-2024 take 1 tablet by mouth twice daily Trospium 20 mg tablet Active 20 mg PO TWICE A DAY September 23, 2024 12:00am administer on an empty stomach Start: 08-29-2019 End: 05-01-2024 take 1 tablet by mouth twice daily Trospium 20 mg Tablet Discontinued 20 mg PO TWICE A DAY February 18, 2021 1:00am May 01, 2024 10:53am Comment on above: Take 1 tablet by radha twice daily. Vit C,U-Nl-Wnnrn-Lutein -Zeaxan (Preservision Areds-2) 250-90-40-1 mg capsule (1 source) Start: 04-14-2024 take 2 capsules by mouth twice daily Vit C,F-Jw-Cmemr-Lutei n-Zeaxan (Preservision Areds-2) 250-90-40-1 mg capsule Active 1 {tbl} PO TWICE A DAY April 14, 2024 1:00am Completed/Discontinued Medications Medication Drug Class(es) Dates Sig (Normalized) Sig (Original) benzonatate 100 mg oral capsule (1 source) Non-narcotic Antitussive Start: 05-03-2018 End: 03-01-2021 take 2 capsules by mouth three times daily as needed for cough Benzonatate 100 MG capsule Discontinued 200 mg PO 3 TIMES DAILY NEEDED as needed for Cough May 03, 2018 1:00am March 01, 2021 12:15pm cholecalciferol 0.025 mg oral capsule (12 sources) Vitamin D Start: 09-08-2021 End: 10-28-2023 take 2 capsules by mouth once daily Cholecalciferol, Vitamin D3, 25 mcg (1,000 unit) cap Take 2 capsules by mouth once daily. 0 09/08/2021 10/28/2023 Discontinued (Course of therapy completed) Comment on above: Take 2 capsules by m outh once daily. docusate sodium 50 mg / sennosides, group home 8.6 mg oral tablet (1 source) Start: 04-17-2024 End: 05-01-2024 Sennosides-Docusa te Sodium (Stimulant Laxative Plus) 8.6-50 mg Tablet Discontinued 2 {tbl} PO TWICE A DAY April 17, 2024 1:00am May 01, 2024 10:53am 0.4 ml enoxaparin sodium 100 mg/ml prefilled syringe (1 source) Low Molecular Weight Heparin Start: 04-17-2024 End: 09-23-2024 Enoxaparin 40 mg/0.4 mL Syringe Discontinued 40 mg SC DAILY 12 April 17, 2024 1:00am September 23, 2024 8:21pm Insulin Glargine 100 unit/mL Cartridge (1 source) Start: 02-18-2021 End: 04-14-2024 Insulin Glargine 100 unit/mL Cartridge Discontinued 45 U SC DAILY February 18, 2021 1:00am April 14, 2024 2:59pm levoFLOXacin 500 mg oral tablet (1 source) Quinolone Antimicrobial Start: 02-18-2021 End: 03-01-2021 take 1 tablet by mouth once daily Levofloxacin 500 mg tablet Discontinued 500 mg PO DAILY February 18, 2021 1:00am March 01, 2021 12:15pm magnesium oxide 400 mg oral tablet (18 sources) Start: 02-18-2021 End: 05-01-2024 take 1 tablet by mouth once daily Magnesium Oxide 400 MG tablet Discontinued 400 mg PO DAILY February 18, 2021 9:06pm May 01, 2024 10:53am Start: 02-19-2018 take 1 tablet by radha th once daily Magnesium Oxide 420 mg tab Take one tablet by mouth once daily 90 tablet 3 02/19/2018 Active Start: 05-15-2013 End: 02-18-2021 take 2 tablets by mouth twice daily in the morning Magnesium Oxide 400 MG tablet Discontinued 400 mg PO TWICE A DAY 90 May 15, 2013 1:00am February 18, 2021 9:06pm Take 2 tablets in the morning of 400 mg to equal 800 mg in the morning Take one tablet in the evening of 400 mg Comment on above: Take one tablet by m outh once daily Major Allergy (1 source) Start: 03-10-2013 End: 04-28-2013 take 10 mg by mouth once daily Major Allergy Discontinued 10 mg PO DAILY March 10, 2013 1:00am April 28, 2013 4:44pm Miscellaneous Medical Supply (14 sources) Start: 03-10-2021 End: 10-28-2023 Miscellaneous Medical Supply Indications: Acute respiratory failure, unspecified whether with hypoxia or hypercapnia (HCC) Patient needs oxygen 2.5L bled into CPAP 1 Each 0 03/10/2021 10/28/2023 Discontinued (Course of therapy completed) Start: 03-10-2021 Miscellaneous Medical Supply Indications: Acute respiratory failure, unspecified whether with hypoxia or hypercapnia (HCC) Patient needs oxygen 2.5L bled into CPAP 1 Each 0 03/10/2021 Active Comment on above: Patient needs oxygen 2.5L bled into CPAP Multivitamin With Iron-Mineral Tablet (1 source) Start: 02-19-20 End: 04-14-19 Multivitamin With Iron-Mineral Tablet Discontinued 1 {tbl} PO DAILY February 18, 2021 1:00am April 14, 2024 3:02pm 24 hr oxybutynin chloride 10 mg extended release oral tablet (1 source) Cholinergic Muscarinic Antagonist Start: 05-01-19 End: 09-24-19 take 1 tablet by mouth once daily Oxybutynin Chloride 10 mg tablet extended release 24hr Discontinued 10 mg PO daily May 01, 2024 1:00am September 23, 2024 8:22pm oxyCODONE hydrochloride 5 mg oral tablet (1 source) Opioid Agonist Start: 04-17-19 End: 05-01-19 take 1 tablet by mouth every four hours as needed Oxycodone 5 mg Tablet Discontinued 5 mg PO EVERY 4 HOURS NEEDED as needed for MODSEVPAIN 15 April 17, 2024 May 01, 2024 10:47am predniSONE 50 mg oral tablet (1 source) Start: 02-19-20 End: 03-01-20 take 1 tablet by mouth once daily Prednisone 50 mg tablet Discontinued 50 mg PO DAILY February 18, 2021 1:00am March 01, 2021 12:17pm SITagliptin 100 mg oral tablet (1 source) Dipeptidyl Peptidase 4 Inhibitor Start: 04-14-19 End: 04-15-19 take 1 tablet by mouth once daily Sitagliptin Phosphate (Januvia) 100 MG tablet Discontinued 100 mg PO DAILY April 14, 2015 1:00am April 15, 2024 12:23pm venlafaxine 37.5 mg oral tablet (1 source) Serotonin and Norepinephrine Reuptake Inhibitor Start: 03-10-20 13 End: 05-13-19 14 Venlafaxine 37.5 MG tablet Discontinued 1 {tbl} PO TWICE A DAY March 10, 2013 1:00am May 13, 2013 6:01pm Problems Active Problems Problem Classification Problem Date Documented Date Episodic/Chronic Acute and unspecified renal failure (1 source) Acute renal failure syndrome; Translations: [Acute kidney failure, unspecified] 03-09-2021 Episodic Chronic kidney disease (1 source) Chronic kidney disease; Translations: [Chronic kidney disease, unspecified] 04-14-2024 Chronic Chronic kidney disease (1 source) Chronic kidney disease; Translations: [Chronic kidney disease, stage 3 unspecified] Onset: 04-20-2024 Complications of surgical procedures or medical care (16 sources) Postoperative hypothyroidism; Translations: [Postprocedural hypothyroidism] Onset: 04-09-2008 04-03-2021 Chronic Congestive heart failure; nonhypertensive (20 sources) Chronic diastolic (congestive) heart failure; Translations: [Chronic diastolic heart failure] Onset: 02-20-2017 02-09-2019 Chronic Coronary atherosclerosis and other heart disease (20 sources) Atherosclerotic heart disease of [place] coronary artery without angina pectoris; Translations: [Coronary arteriosclerosis] Onset: 09-01-2010 Resolved: 11-15-2020 08-07-2019 Chronic Diabetes mellitus with complications (20 sources) Type 2 diabetes mellitus; Translations: [Type 2 diabetes mellitus with diabetic polyneuropathy] Onset: 07-28-2007 11-15-2020 Chronic Disorders of lipid metabolism (20 sources) Mixed hyperlipidemia; Translations: [Mixed hyperlipidemia] Onset: 08-10-2005 04-03-2021 Chronic Esophageal disorders (17 sources) Gastroesophageal reflux disease; Translations: [Gastro-esophageal reflux disease without esophagitis] Onset: 08-10-2005 04-03-2021 Chronic Essential hypertension (18 sources) Essential (primary) hypertension; Translations: [Essential hypertension] Onset: 03-14-2015 08-07-2019 Chronic Fracture of neck of femur (hip) (2 sources) Displaced fracture of greater trochanter of unspecified femur, initial encounter for closed fracture; Translations: [Fracture of greater trochanter] Onset: 04-18-2024 05-01-2024 Episodic Heart valve disorders (1 source) Mitral valve disorder; 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, unspecified] 10-28-2023 Chronic Hyperplasia of prostate (16 sources) Benign prostatic hyperplasia; Translations: [Benign prostatic hyperplasia without lower urinary tract symptoms] Onset: 12-18-2010 12-18-2010 Chronic Hypertension with complications and secondary hypertension (19 sources) Hypertensive heart disease with congestive heart failure; Translations: [Hypertensive heart disease with heart failure] Onset: 01-23-2008 11-15-2020 Chronic Mood disorders (20 sources) Recurrent major depression in partial remission; Translations: [Major depressive disorder, recurrent, in partial remission] Onset: 06-21-2010 Resolved: 10-28-2013 11-15-2020 Chronic Mycoses (1 source) Onychomycosis; Translations: [Tinea unguium] Episodic Nonspecific chest pain (1 source) Chest pain; Translations: [Chest pain, unspecified] 05-28-2021 Episodic Nutritional deficiencies (17 sources) Vitamin D deficiency; Translations: [Vitamin D deficiency, unspecified] Onset: 01-21-2012 04-26-2014 Chronic Other connective tissue disease (1 source) Pain of toe of left foot; Translations: [Pain in left toe(s)] Episodic Other connective tissue disease (1 source) Pain of toe of right foot; Translations: [Pain in right toe(s)] Episodic Other connective tissue disease (1 source) Pain in left leg; Translations: [Pain in left leg] Onset: 04-28-2024 Episodic Other hereditary and degenerative nervous system conditions (19 sources) Restless legs; Translations: [Restless legs syndrome] Onset: 08-09-2010 Resolved: 05-22-2013 04-03-2013 Chronic Other liver diseases (1 source) Alkaline phosphatase raised; Translations: [Abnormal levels of other serum enzymes] Episodic Other lower respiratory disease (2 sources) Multiple nodules of lung; Translations: [Other nonspecific abnormal finding of lung field] Episodic Other lower respiratory disease (1 source) Dyspnea; Translations: [Shortness of breath] Episodic Other nervous system disorders (1 source) Unable to walk; Translations: [Difficulty in walking, not elsewhere classified] 04-14-2024 Chronic Other non-traumatic joint disorders (17 sources) Pain in unspecified knee; Translations: [Pain in joint, lower leg] Onset: 05-22-2013 10-28-2013 Episodic Other nutritional; endocrine; and metabolic disorders (17 sources) Body mass index 40+ - severely obese; Translations: [Morbid (severe) obesity due to excess calories] Onset: 11-14-2020 11-23-2020 Chronic Other nutritional; endocrine; and metabolic disorders (16 sources) Obese class II; Translations: [Obesity, unspecified] Onset: 05-15-2021 05-15-2021 Chronic Other screening for suspected conditions (not mental disorders or infectious disease) (16 sources) Urogenital finding; Translations: [Abnormal findings on diagnostic imaging of other specified body structures] Onset: 11-18-2007 01-23-2008 Chronic Other screening for suspected conditions (not mental disorders or infectious disease) (6 sources) Patient encounter status; Translations: [Encounter for screening for cardiovascular disorders] Onset: 12-18-2010 Resolved: 11-15-2020 Episodic Other skin disorders (1 source) Ingrowing nail of toe of right foot; Translations: [Ingrowing nail] Episodic Other upper respiratory disease (16 sources) Allergic rhinitis; Translations: [Allergic rhinitis, unspecified] Onset: 08-10-2005 01-23-2008 Chronic Residual codes; unclassified (16 sources) Obstructive sleep apnea syndrome; Translations: [Obstructive sleep apnea (adult) (pediatric)] Onset: 03-14-2015 03-14-2015 Chronic Residual codes; unclassified (1 source) Pain; Translations: [Pain, unspecified] 04-14-2024 Episodic Respiratory failure; insufficiency; arrest (adult) (5 sources) Acute respiratory failure; Translations: [Acute respiratory failure, unspecified whether with hypoxia or hypercapnia] Onset: 10-29-2022 10-28-2023 Episodic Thyroid disorders (4 sources) Hypothyroidism; Translations: [Hypothyroidism, unspecified] Onset: 03-15-2014 Resolved: 03-15-2014 03-15-2014 Chronic Unclassified (1 source) Parkinson's disease; Translations: [Parkinson's disease] 05-20-2021 Chronic Unclassified (1 source) Unknown / UNK(Unknown) Onset: 03-14-2015 Viral infection (1 source) Disease caused by 2019-nCoV; Translations: [COVID-19] 03-09-2021 Episodic Past or Other Problems Problem Classification Problem Date Documented Da te Episodic/Chronic Aortic and peripheral arterial embolism or thrombosis (3 sources) Vascular disorder; Translations: [Embolism and thrombosis of unspecified artery] Onset: 8 Resolved: 4 10-28-2013 Chronic Cancer of thyroid (16 sources) History of malignant neoplasm of thyroid; Translations: [Personal history of malignant neoplasm of thyroid] Onset: 8 08-05-2019 Episodic Complication of device; implant or graft (3 sources) Arteriosclerosis of coronary artery bypass graft; Translations: [Atherosclerosis of coronary artery bypass graft(s) without angina pectoris] Onset: 8 Resolved: 1 10-17-2023 Chronic Conditions associated with dizziness or vertigo (3 sources) Benign paroxysmal positional vertigo; Translations: [Benign paroxysmal vertigo, unspecified ear] Onset: 9 Resolved: 4 10-28-2013 Episodic Coronary atherosclerosis and other heart disease (3 sources) Drug coated stent in anterior descending branch of left coronary artery; Translations: [Presence of coronary angioplasty implant and graft] Onset: 2 Resolved: 4 10-28-2013 Episodic Deficiency and other anemia (3 sources) Anemia; Translations: [Anemia, unspecified] Onset: 8 Resolved: 4 10-28-2013 Episodic Gastrointestinal hemorrhage (6 sources) Gastrointestinal hemorrhage; Translations: [Gastrointestinal hemorrhage, unspecified] Onset: 5 Resolved: 1 11-15-2020 Episodic Genitourinary symptoms and ill-defined conditions (19 sources) Proteinuria; Translations: [Proteinuria, unspecified] Onset: 1 Resolved: 4 01-11-2014 Episodic Hemorrhoids (16 sources) Internal hemorrhoids grade III; Translations: [Third degree hemorrhoids] Onset: 6 05-10-2015 Episodic Joint disorders and dislocations; trauma-related (6 sources) Tear of medial meniscus of knee; Translations: [Tear of medial cartilage or meniscus of knee, current] Onset: 4 Resolved: 4 09-18-2013 Episodic Other and unspecified benign neoplasm (16 sources) Tubular adenoma of colon; Translations: [Benign neoplasm of colon, unspecified] Onset: 6 05-10-2015 Episodic Other congenital anomalies (3 sources) Congenital anomaly of skin; Translations: [Other specified congenital malformations of skin] Onset: 8 Resolved: 4 10-28-2013 Chronic Other connective tissue disease (3 sources) Plantar fascial fibromatosis; Translations: [Plantar fascial fibromatosis] Onset: 8 Resolved: 4 10-28-2013 Episodic Other connective tissue disease (3 sources) Disorder of Achilles tendon; Translations: [Achilles tendinitis, unspecified leg] Onset: 1 Resolved: 4 10-28-2013 Episodic Other ear and sense organ disorders (3 sources) Pain of ear structure; Translations: [Otalgia, unspecified ear] Onset: 5 Resolved: 4 10-28-2013 Episodic Other non-traumatic joint disorders (3 sources) Arthralgia of the pelvic region and thigh; Translations: [Pain in unspecified hip] Onset: 0 Resolved: 4 10-28-2013 Episodic Other nutritional; endocrine; and metabolic disorders (3 sources) Hypomagnesemia; Translations: [Hypomagnesemia] Onset: 4 Resolved: 1 11-15-2020 Chronic Other nutritional; endocrine; and metabolic disorders (3 sources) Body mass index 30+ - obesity; Translations: [Obesity, unspecified] Resolved: 1 11-15-2020 Chronic Other nutritional; endocrine; and metabolic disorders (3 sources) Overweight; Translations: [Overweight] Onset: 0 Resolved: 1 11-15-2020 Episodic Other skin disorders (3 sources) Keloid scar; Translations: [Hypertrophic scar] Onset: 8 Resolved: 4 10-28-2013 Episodic Other skin disorders (3 sources) Scar conditions and fibrosis of skin; Translations: [Scar conditions and fibrosis of skin] Onset: 8 Resolved: 4 10-28-2013 Episodic Other skin disorders (3 sources) Ingrowing nail; Translations: [Ingrowing nail] Onset: 1 Resolved: 4 10-28-2013 Episodic Residual codes; unclassified (3 sources) Sleep apnea; Translations: [Sleep apnea, unspecified] Onset: 8 Resolved: 8 10-17-2023 Chronic Residual codes; unclassified (16 sources) History of repair of mitral valve; Translations: [Other specified postprocedural states] Onset: 1 02-09-2019 Episodic Residual codes; unclassified (16 sources) Insomnia; Translations: [Insomnia, unspecified] Onset: 4 10-28-2013 Episodic Residual codes; unclassified (16 sources) Edema of foot; Translations: [Localized edema] Onset: 4 01-11-2014 Episodic Spondylosis; intervertebral disc disorders; other back problems (3 sources) Sciatica; Translations: [Sciatica, unspecified side] Onset: 0 Resolved: 4 10-28-2013 Episodic Results Test Name Value Interpretation Reference Range Facility Absolute lymphocyte countOrd ered By: ED PROVIDER on 09-23-2024 Lymphocytes Auto (Unsp spec) [#/Vol] 1.07 10*3/uL 0.83-4.51 [facility] Absolute neutrophil countOrd ered By: ED PROVIDER on 09-23-2024 Neutrophils (Bld) [#/Vol] 5.0 10*3/uL 2.0-7.7 [facility] Anion gap in Serum or Plasma Ordered By: ED PROVIDER on 09-23-2024 Anion gap [Moles/Vol] 15 mmol/L 5-15 [facility] Automated lymphocyte count a s percentage of total leukocytesOrdered By: ED PROVIDER on 09-23-2024 Lymphocytes/100 WBC Auto (Unsp spec) 15.4 % Low 19-41 [facility] BUN/creatinine ratioOrdered By: ED PROVIDER on 09-23-2024 Urea nitrogen/Creatinine [Mass ratio] 16.3 mg/mg 10-20 [facility] Basophil percentageOrdered B y: ED PROVIDER on 09-23-2024 Basophils/100 WBC (Bld) 0.6 % 0-1 [facility] Bilirubin Test strip Ql (U)O rdered By: Marco Antonio Vazquez on 09-23-2024 Bilirubin Ql (U) Negative Negative [facility] Bilirubin, totalOrdered By: ED PROVIDER on 09-23-2024 Bilirubin [Mass/Vol] 1.07 mg/dL 0.00-1.30 [facility] Carbon dioxide, total [Moles /volume] in Central venous bloodOrdered By: ED PROVIDER on 09-23-2024 CO2 [Moles/Vol] 23.1 mmol/L 21.0-32.0 [facility] Chloride assayOrdered By: ED PROVIDER on 09-23-2024 Chloride [Moles/Vol] 101 mmol/L 98-108 [facility] Eosinophil percentageOrdered By: ED PROVIDER on 09-23-2024 Eosinophils/100 WBC (Bld) 2.4 % 0-5 [facility] Erythrocyte distribution wid th ratioOrdered By: ED PROVIDER on 09-23-2024 Erythrocyte distribution width (RBC) [Ratio] 13.4 % 11.6-14.6 [facility] Erythrocyte distribution wid th standard deviationOrdered By: ED PROVIDER on 09-23-2024 Erythrocyte distribution width (RBC) [Ratio] 45.6 fl High 35.1-43.9 [facility] Glomerular filtration rate ( GFR) estimation/1.73 sq m using serum, plasma, or whole bOrdered By: ED PROVIDER on 09-23-2024 GFR/1.73 sq M.predicted among non-blacks MDRD (S/P/Bld) [Vol rate/Area] 32 mL/min/{1.73_m2} Low >60 [facility] Comment on above: mL/min/1.73m2 CKD-EP I Creatinine Equation (2020) Hematocrit Auto (Bld) [Volum e fraction]Ordered By: ED PROVIDER on 09-23-2024 Hematocrit (Bld) [Volume fraction] 48.6 % 40-54 [facility] Hemoglobin measurementOrdere d By: ED PROVIDER on 09-23-2024 Hemoglobin (Bld) [Mass/Vol] 16.2 g/dL 13.0-16.5 [facility] Immature granulocytes/100 WB C Auto (Bld)Ordered By: ED PROVIDER on 09-23-2024 Immature granulocytes/100 WBC (Bld) 0.300 % 0.0-0.9 [facility] Comment on above: IG% - Immature Granu locytes (promyelocytes, myelocytes and metamyelocytes) > 1% indicates that a LEFT SHIFT is Present. Ketones Test strip Ql (U)Ord ered By: Marco Antonio Vazquez on 09-23-2024 Ketones Ql (U) Negative Negative [facility] Laboratory - Chemistry and C hemistry - challengeOrdered By: ED PROVIDER on 09-23-2024 AST [Catalytic activity/Vol] 23 U/L <38 [facility] Lipase measurementOrdered By : ED PROVIDER on 09-23-2024 Lipase [Catalytic activity/Vol] 44 U/L 13-75 [facility] Comment on above: Please note:LIPASE r evised reference range effective 22. New Lipase methodology. Expected to produce lower values than the previous assay method. NEW Reference Range: 13 - 75 U/L MCV (mean corpuscular volume ) determinationOrdered By: ED PROVIDER on 09-23-2024 MCV (RBC) [Entitic vol] 93.5 fL 80-94 [facility] Mean corpuscular hemoglobin (MCH) determinationOrdered By: ED PROVIDER on 09-23-2024 MCH (RBC) [Entitic mass] 31.2 pg 27.0-32.0 [facility] Mean corpuscular hemoglobin concentration (MCHC) determinationOrdered By: ED PROVIDER on 09-23-2024 MCHC (RBC) [Mass/Vol] 33.3 g/dL 32-36 [facility] Mean platelet volume determi nationOrdered By: ED PROVIDER on 09-23-2024 Platelet mean volume (Bld) [Entitic vol] 10.5 fL 6.2-12.0 [facility] Microscopic analysis of urin e for red blood cells (RBC)Ordered By: Marco Antonio Vazquez on 09-23-2024 Microscopic analysis of urine for red blood cells (RBC) 0-5 SEEN /hpf 0-5 [facility] Monocyte percentageOrdered B y: ED PROVIDER on 09-23-2024 Monocytes/100 WBC (Bld) 9.1 % 0-10 [facility] Mucus LM Ql (Urine sed)Order ed By: Marco Antonio Vazquez on 09-23-2024 Mucus Ql (Urine sed) 0 SEEN /hpf [facility] Neutrophil percentageOrdered By: ED PROVIDER on 09-23-2024 Neutrophils/100 WBC (Bld) 72.2 % High 47-70 [facility] Nitrite Test strip Ql (U)Ord ered By: Marco Antonio Vazquez on 09-23-2024 Nitrite Ql (U) Negative Negative [facility] Nucleated red blood cell per centageOrdered By: ED PROVIDER on 09-23-2024 Nucleated RBC/100 WBC (Bld) [Ratio] 0 % 0-5 [facility] Platelet countOrdered By: ED PROVIDER on 09-23-2024 Platelets (Bld) [#/Vol] 150 10*3/uL 150-450 [facility] Potassium measurement (mass/ volume)Ordered By: ED PROVIDER on 09-23-2024 Potassium (Unsp spec) [Mass/Vol] 4.4 mmol/L 3.3-5.1 [facility] Protein Test strip Ql (U)Ord ered By: Marco Antonio Vazquez on 09-23-2024 Protein Ql (U) 30 mg/dl High Negative [facility] RBC Auto (Bld) [#/Vol]Ordere d By: ED PROVIDER on 09-23-2024 RBC (Bld) [#/Vol] 5.20 10*6/uL 4.6-6.2 [facility] Serum creatinine measurement (mass/volume)Ordered By: ED PROVIDER on 09-23-2024 Creatinine [Mass/Vol] 2.08 mg/dL High 0.70-1.20 [facility] Serum globulin measurementOr dered By: ED PROVIDER on 09-23-2024 Globulin (S) [Mass/Vol] 2.7 g/dL 2.2-4.2 [facility] Serum glucose measurement (m ass/volume)Ordered By: ED PROVIDER on 09-23-2024 Glucose [Mass/Vol] 210 mg/dL High 70-99 [facility] Serum or plasma alanine villafuerte otransferase (ALT) measurementOrdered By: ED PROVIDER on 09-23-2024 ALT [Catalytic activity/Vol] 13 U/L <47 [facility] Serum or plasma albumin chase urement (mass/volume)Ordered By: ED PROVIDER on 09-23-2024 Albumin [Mass/Vol] 4.3 g/dL 3.4-4.8 [facility] Serum or plasma albumin/glob ulin mass ratioOrdered By: ED PROVIDER on 09-23-2024 Albumin/Globulin [Mass ratio] 1.6 {ratio} 0.9-2.4 [facility] Serum or plasma alkaline claudio sphatase measurementOrdered By: ED PROVIDER on 09-23-2024 ALP [Catalytic activity/Vol] 124 U/L 40-129 [facility] Serum or plasma calcium chase urement (mass/volume)Ordered By: ED PROVIDER on 09-23-2024 Calcium [Mass/Vol] 9.2 mg/dL 7.6-11.0 [facility] Serum or plasma urea nitroge n measurement (mass/volume)Ordered By: ED PROVIDER on 09-23-2024 Urea nitrogen [Mass/Vol] 34 mg/dL High 4-19 [facility] Sodium levelOrdered By: ED P IND[place] on 09-23-2024 Sodium [Moles/Vol] 138 mmol/L 133-145 [facility] Squamous epithelial cells de tection in urine sediment by light microscopyOrdered By: Marco Antonio Vazquez on 09-23-2024 Epithelial cells.squamous LM Ql (Urine sed) 0-5 SEEN /hpf 0-5 [facility] Total proteinOrdered By: ED PROVIDER on 09-23-2024 Protein [Mass/Vol] 7.0 g/dL 5.9-8.4 [facility] Urine clarityOrdered By: Pineda Vazquez on 09-23-2024 Clarity (U) Clear Clear [facility] Urine color determinationOrd ered By: Marco Antonio Vazquez on 09-23-2024 Color (U) Yellow Yellow [facility] Urine glucose detectionOrder ed By: Marco Antonio Vazquez on 09-23-2024 Glucose Ql (U) 1000 mg/dl High Normal [facility] Urine leukocyte esterase det ection by dipstickOrdered By: Marco Antonio Vazquez on 09-23-2024 Leukocyte esterase Test strip Ql (U) Negative Negative [facility] Urine pHOrdered By: Marco Antonio jacobo on 09-23-2024 pH (U) 7.0 [pH] 5.0 - 8.0 [facility] Urine sediment bacteria coun t by microscopy (number/high power field)Ordered By: Marco Antonio Vazquez on 09-23-2024 Bacteria LM.HPF (Urine sed) [#/Area] 0 /[HPF] None Seen [facility] Urine specific gravity measu rementOrdered By: Marco Antonio Vazquez on 09-23-2024 Specific gravity (U) [Rel density] 1.010 1.002-1.03 0 [facility] Urine urobilinogen measureme ntOrdered By: Marco Antonio Vazquez on 09-23-2024 Urobilinogen Ql (U) Normal mg/dl Normal [facility] White blood cell (WBC) count Ordered By: ED PROVIDER on 09-23-2024 WBC (Bld) [#/Vol] 7.0 10*3/uL 4.4-11.0 [facility] White blood cell countOrdere d By: Marco Antonio Vazquez on 09-23-2024 White blood cell count 0-5 SEEN /hpf 0-5 [facility] CBC (NO DIFF)on 04-21-2024 CBC panel Auto (Bld) Normal [facility] Comment on above: Result Comment: CBC( WITHOUT DIFFERENTIAL) Performed By: #### 2 [id number] #### [address] [address] Erythrocyte distribution width (RBC) [Ratio] 13.8 % Normal 12.0 - 15.6 [facility] Comment on above: Performed By: #### 2 [id number] #### [facility],[address] [place] [address] Hematocrit (Bld) [Volume fraction] 48.9 % Normal 40.0 - 52.0 [facility] Comment on above: Performed By: #### 2 68845 #### [address] [address] Hemoglobin (Bld) [Mass/Vol] 16.3 g/dL Normal 13.0 - 17.5 [facility] Comment on above: Performed By: #### 2 01465 #### [address] [address] MCH (RBC) [Entitic mass] 31 pg Normal 27 - 33 [facility] Comment on above: Performed By: #### 2 [id number] #### [facility],[address] [place] [address] MCHC 33 X10 3 Normal 32 - 36 [facility] Comment on above: Performed By: #### 2 [id number] #### [facility],[address] [place] [address] MCV (RBC) [Entitic vol] 93 fL Normal 81 - 98 [facility] Comment on above: Performed By: #### 2 47146 #### [facility],[address] [place] [address] PLATELET 206 x10EE3/UL Normal 150 - 450 [facility] Comment on above: Performed By: #### 2 29981 #### [facility],[address] [place] [address] Platelet mean volume (Bld) [Entitic vol] 8.3 fL Normal 6.4 - 10.5 [facility] Comment on above: Performed By: #### 2 78111 #### [facility],[address] [place], [place] [id number] RBC 5.27 x 10EE6/UL Normal 4.50 - 6.00 [facility] Comment on above: Performed By: #### 2 49259 #### [facility],[address] [place], [place] [id number] WBC 7.2 x 10EE3/UL Normal 4.5 - 10.8 [facility] Comment on above: Performed By: #### 2 60083 #### [facility],[address] [place], [place] [id number] CMP with eGFRon 04-21-2024 AGE 79 years Normal [facility] Comment on above: Performed By: #### 2 78120 #### [facility],[address] [place] [address] Albumin [Mass/Vol] 3.5 g/dL Normal 3.4 - 5.0 [facility] Comment on above: Performed By: #### 2 [id number] #### [facility],[address] [place] [address] Albumin/Globulin [Mass ratio] 0.9 {ratio} Normal 0.9 - 1.6 [facility] Comment on above: Performed By: #### 2 15506 #### [facility],[address] [place] [address] ALK PHOS 104 U/L Normal 46 - 116 [facility] Comment on above: Performed By: #### 2 [id number] #### [facility],[address] [place] [address] ALT [Catalytic activity/Vol] 12 U/L Low 16 - 63 [facility] Comment on above: Performed By: #### 2 73897 #### [facility],[address] [place] [address] Anion gap [Moles/Vol] 14 mmol/L Normal 10 - 20 [facility] Comment on above: Performed By: #### 2 99705 #### [facility],[address] [place] [address]28 AST [Catalytic activity/Vol] 20 U/L Normal 15 - 37 [facility] Comment on above: Performed By: #### 2 68309 #### [facility],[address] [place] [address] B/C RATIO 13 ratio Normal 0 - 30 [facility] Comment on above: Performed By: #### 2 10553 #### [facility],[address] [place] [address] Bilirubin [Mass/Vol] 1.4 mg/dL High 0.2 - 1.0 [facility] Comment on above: Performed By: #### 2 68040 #### [facility],[address] [place] [address] Calcium [Mass/Vol] 9.2 mg/dL Normal 8.5 - 10.1 [facility] Comment on above: Performed By: #### 2 98017 #### [facility],[address] [place], [place] [phone] Chloride [Moles/Vol] 105 mmol/L Normal 98 - 107 [facility] Comment on above: Performed By: #### 2 27007 #### [facility],[address] [place], [place] [id number] CMP with eGFR Normal [facility] Comment on above: Result Comment: COMP REHENSIVE METABOLIC PANEL Performed By: #### 2 34644 #### [facility],[address] [place] [address] CO2 [Moles/Vol] 26.8 mmol/L Normal 21.0 - 32.0 [facility] Comment on above: Performed By: #### 2 81824 #### [facility],[address] [place], [place] [id number] Creatinine [Mass/Vol] 1.49 mg/dL High 0.70 - 1.30 [facility] Comment on above: Performed By: #### 2 99685 #### [facility],[address] [place] [address]90 eGFR 45 ML/MINUTE Low 60 - 999 [facility] Comment on above: Performed By: #### 2 03839 #### [facility],[address] [place] [address]1987 eGFR(AA) 55 ML/MINUTE Low 60 - 999 [facility] Comment on above: Result Comment: ACCO RDING TO THE NATIONAL KIDNEY DISEASE EDUCATION PROGRAM(NKDE), A NORMAL eGFR IS A VALUE GREATER THAN OR EQUAL TO 60 ML/MIN/1.73 SQ METERS. CHRONIC KIDNEY DISEASE: <60mL/MIN/1.73 SQ METERS KIDNEY FAILURE: <15mL/MIN/1.73 SQ METERS THIS TEST SHOULD ONLY BE USED FOR PATIENTS 18 YEARS OF AGE AND OLDER. Performed By: #### 2 [id number] #### [facility],[address] [place] [address] Globulin (S) [Mass/Vol] 3.7 g/dL Normal 1.5 - 3.8 [facility] Comment on above: Performed By: #### 2 29392 #### [facility],[address] [place] [address] Glucose [Mass/Vol] 141 mg/dL High 74 - 106 [facility] Comment on above: Performed By: #### 2 00665 #### [facility],[address] [place] [address] Potassium [Moles/Vol] 3.8 mmol/L Normal 3.5 - 5.1 [facility] Comment on above: Performed By: #### 2 10639 #### [facility],[address] [place] [address] 14068 Protein [Mass/Vol] 7.2 g/dL Normal 6.4 - 8.2 [facility] Comment on above: Performed By: #### 2 56056 #### [facility],[address] [place] [address] Sodium [Moles/Vol] 142 mmol/L Normal 136 - 145 [facility] Comment on above: Performed By: #### 2 34284 #### [facility],[address] [place] [address] Urea nitrogen [Mass/Vol] 20 mg/dL High 7 - 18 [facility] Comment on above: Performed By: #### 2 73174 #### [facility],[address] [place] [address] HEMOGLOBIN A1C (POM)on 04-21 Glucose [Mass/Vol] 145.6 mg/dL High 0.0 - 0.0 [facility] Comment on above: Result Comment: BLDo HEMOGLOBIN A1C REFERENCE RANGESBLDo Suggested Diagnosis HbA1c(%) HbA1C (mmol/mol Diabetic >/=6.5 >/=48 Prediabetes 5.7 - 6.4 39 - 47 Normal <5.7 <39 Performed By: #### 2 60790 #### [facility],[address] [place] [address] HbA1c (Bld) [Mass fraction] 6.7 % High 0.0 - 6.5 [facility] Comment on above: Performed By: #### 2 76270 #### [facility],[address] [place] [address] LIPID PROFILEon 04-21-2024 Cholesterol [Mass/Vol] 110 mg/dL Normal 0 - 240 [facility] Comment on above: Performed By: #### 2 42904 #### [facility],[address] [place] [address] Cholesterol in HDL [Mass/Vol] 31 mg/dL Low 40 - 60 [facility] Comment on above: Performed By: #### 2 68953 #### [facility],[address] [place] [address] Cholesterol in LDL [Mass/Vol] 41 mg/dL Normal 0 - 129 [facility] Comment on above: Performed By: #### 2 14315 #### [facility],[address] [place] [address] Cholesterol.total/Cho lesterol in HDL [Mass ratio] 3.5 {ratio} Normal 0.0 - 5.0 [facility] Comment on above: Performed By: #### 2 67109 #### [facility],[address] [place] [address] Lipid 1996 panel Normal [facility] Comment on above: Result Comment: LIPI D PROFILE Performed By: #### 2 02569 #### [facility],[address] [place] [address] Triglyceride [Mass/Vol] 189 mg/dL High 0 - 150 [facility] Comment on above: Performed By: #### 2 99836 #### [facility],[address] [place] [address] TSHon 04-21-2024 TSH Qn 1.80 m[IU]/L Normal 0.35 - 3.74 [facility] Comment on above: Performed By: #### 2 54932 #### [facility],[address] [place] [address] VITAMIN D, 25 HYDROXYon 04-08 VitD 30.60 ng/mL Normal 30.00 - 100 [facility] Comment on above: Result Comment: 25-O HD3 indicates both endogenous production and supplementation. 25-OHD2 is an indicator of exogenous sources, such as diet or supplementation. Therapy is based on measurement of Total 25-OHD, with levels <20 ng/mL indicative of Vitamin D deficiency, while levels between 20 ng/mL and 30 ng/mL suggest insufficiency. Optimal levels are >=30ng/mL. Vitamin D, 25-OH D3 Not Established Vitamin D, 25-OH D2 Not Established Performed By: #### 2 [id number] #### [facility],[address] [place] [address] BMP with eGFRon 04-20-2024 AGE 79 years Normal [facility] Comment on above: Performed By: #### 2 [id number] #### [address] [address] Anion gap [Moles/Vol] 14 mmol/L Normal 10 - 20 [facility] Comment on above: Performed By: #### 2 56437 #### [address] [address] BMP with eGFR Normal [facility] Comment on above: Result Comment: BASI C METABOLIC PANEL Performed By: #### 2 23810 #### [address] [address] Calcium [Mass/Vol] 8.7 mg/dL Normal 8.5 - 10.1 [facility] Comment on above: Performed By: #### 2 43334 #### [address] [address] Chloride [Moles/Vol] 107 mmol/L Normal 98 - 107 [facility] Comment on above: Performed By: #### 2 01154 #### [facility],[address] [place] [address] CO2 [Moles/Vol] 26.9 mmol/L Normal 21.0 - 32.0 [facility] Comment on above: Performed By: #### 2 54247 #### [facility],[address] [place] [address] Creatinine [Mass/Vol] 1.43 mg/dL High 0.70 - 1.30 [facility] Comment on above: Performed By: #### 2 24836 #### [facility],[address] [place] [address] eGFR 48 ML/MINUTE Low 60 - 999 [facility] Comment on above: Performed By: #### 2 15766 #### [facility],[address] [place] [address] eGFR(AA) 58 ML/MINUTE Low 60 - 999 [facility] Comment on above: Result Comment: ACCO RDING TO THE NATIONAL KIDNEY DISEASE EDUCATION PROGRAM(NKDE), A NORMAL eGFR IS A VALUE GREATER THAN OR EQUAL TO 60 ML/MIN/1.73 SQ METERS. CHRONIC KIDNEY DISEASE: <60mL/MIN/1.73 SQ METERS KIDNEY FAILURE: <15mL/MIN/1.73 SQ METERS THIS TEST SHOULD ONLY BE USED FOR PATIENTS 18 YEARS OF AGE AND OLDER. Performed By: #### 2 48675 #### [facility],[address] [place] [address] Glucose [Mass/Vol] 152 mg/dL High 74 - 106 [facility] Comment on above: Performed By: #### 2 28191 #### [facility],[address] [place] [address] Potassium [Moles/Vol] 3.8 mmol/L Normal 3.5 - 5.1 [facility] Comment on above: Performed By: #### 2 81176 #### [facility],[address] [facility] [address] Sodium [Moles/Vol] 144 mmol/L Normal 136 - 145 [facility] Comment on above: Performed By: #### 2 63435 #### [facility],[address] [facility] [address] Urea nitrogen [Mass/Vol] 21 mg/dL High 7 - 18 [facility] Comment on above: Performed By: #### 2 97443 #### [facility],[address] [place] [address] Bedside Glucoseon 04-18-2024 FINGERSTICK GLU 150 mg/dL High 74-106 [facility] Comment on above: Result Comment: DAVID REED OF PATIENT CARE PER NURSING PROTOCOL Performed By: #### L 500.4050, L100.0100 #### [facility] [address] [place], [address] Basic Metabolic Profile (BMP )on 04-17-2024 BUN/CRE 17.5 RATIO Normal 10-20 [facility] Comment on above: Performed By: #### L 500.4050, L100.0100 #### [facility] [address] [place], [address] CA,Total 8.9 mg/dL Normal 8.5-10.1 [facility] Comment on above: Performed By: #### L 500.4050, L100.0100 #### [facility] [address] [place], [address] Chloride [Moles/Vol] 107 mmol/L Normal 98-107 [facility] Comment on above: Performed By: #### L 500.4050, L100.0100 #### [facility] [address] [place], [address] CO2 [Moles/Vol] 26.0 mmol/L Normal 21.0-32.0 [facility] Comment on above: Performed By: #### L 500.4050, L100.0100 #### [facility] [address] [place], [address] Creatinine [Mass/Vol] 1.54 mg/dL High 0.70-1.30 [facility] Comment on above: Result Comment: The validity of the calculated GFR GFRAA in patients over 70 years has not been determined. Clinical correlation is essential. Performed By: #### L 500.4050, L100.0100 #### [facility] [address] [place], [address] ECRCL 43.21 ml/min Normal [facility] Comment on above: Performed By: #### L 500.4050, L100.0100 #### [facility] [address] [place], [address] EST GFR - AA 56 mL/min Low >60 [facility] Comment on above: Result Comment: Afri can Cuban GFR Calc Performed By: #### L 500.4050, L100.0100 #### [facility] [address] [place], [address] GAP 6 Normal 5-15 [facility] Comment on above: Performed By: #### L 500.4050, L100.0100 #### [facility] [address] [place], [address] GFR/1.73 sq M.predicted among non-blacks MDRD (S/P/Bld) [Vol rate/Area] 47 mL/min/{1.73_m2} Low >60 [facility] Comment on above: Result Comment: Non- GFR Calc Performed By: #### L 500.4050, L100.0100 #### [facility] [address] [place], [address] Glucose [Mass/Vol] 136 mg/dL High 74-106 [facility] Comment on above: Result Comment: Fast ing Glucose result greater than or equal to 126 mg/dL suggests DIABETES MELLITUS per A.D.A. criteria. Performed By: #### L 500.4050, L100.0100 #### [facility] [address] [place], [address] Potassium [Moles/Vol] 3.6 mmol/L Normal 3.5-5.1 [facility] Comment on above: Performed By: #### L 500.4050, L100.0100 #### [facility] [address] [place], [address] Sodium [Moles/Vol] 139 mmol/L Normal 136-145 [facility] Comment on above: Performed By: #### L 500.4050, L100.0100 #### [facility] [address] [place], [address] Urea nitrogen [Mass/Vol] 27 mg/dL High 7-18 [facility] Comment on above: Performed By: #### L 500.4050, L100.0100 #### [facility] [address] [place], [address] Bedside Glucoseon 04-17-2024 FINGERSTICK GLU 179 mg/dL High 74-106 [facility] Comment on above: Result Comment: DAVID GEMENT OF PATIENT CARE PER NURSING PROTOCOL Performed By: #### L 500.4050, L100.0100 #### [facility] [address] [place], [address] FINGERSTICK GLU 164 mg/dL High 74-106 [facility] Comment on above: Result Comment: DAVID GEMENT OF PATIENT CARE PER NURSING PROTOCOL Performed By: #### L 501.080 #### [facility] [address] [place], [address] FINGERSTICK GLU 125 mg/dL High 74-106 [facility] Comment on above: Result Comment: DAVID GEMENT OF PATIENT CARE PER NURSING PROTOCOL Performed By: #### L 500.4050, L100.0100 #### [facility] [address] [place], [address] Basic Metabolic Profile (BMP )on 04-16-2024 BUN/CRE 18.2 RATIO Normal 10-20 [facility] Comment on above: Performed By: #### L 500.4050, L100.0100 #### [facility] [address] [place], [address] CA,Total 9.0 mg/dL Normal 8.5-10.1 [facility] Comment on above: Performed By: #### L 500.4050, L100.0100 #### [facility] [address] [place], [address] Chloride [Moles/Vol] 106 mmol/L Normal 98-107 [facility] Comment on above: Performed By: #### L 500.4050, L100.0100 #### [facility] [address] [place], [address] CO2 [Moles/Vol] 29.0 mmol/L Normal 21.0-32.0 [facility] Comment on above: Performed By: #### L 500.4050, L100.0100 #### [facility] [address] [place], [address] Creatinine [Mass/Vol] 1.87 mg/dL High 0.70-1.30 [facility] Comment on above: Result Comment: The validity of the calculated GFR GFRAA in patients over 70 years has not been determined. Clinical correlation is essential. Performed By: #### L 500.4050, L100.0100 #### [facility] [address] [place], [address] ECRCL 35.58 ml/min Normal [facility] Comment on above: Performed By: #### L 500.4050, L100.0100 #### [facility] [address] [place], [address] EST GFR - AA 45 mL/min Low >60 [facility] Comment on above: Result Comment: Afri can Cuban GFR Calc Performed By: #### L 500.4050, L100.0100 #### [facility] [address] [place], [address] GAP 4 Low 5-15 [facility] Comment on above: Performed By: #### L 500.4050, L100.0100 #### [facility] [address] [place], [address] GFR/1.73 sq M.predicted among non-blacks MDRD (S/P/Bld) [Vol rate/Area] 37 mL/min/{1.73_m2} Low >60 [facility] Comment on above: Result Comment: Non- GFR Calc Performed By: #### L 500.4050, L100.0100 #### [facility] [address] [place], [address] Glucose [Mass/Vol] 131 mg/dL High 74-106 [facility] Comment on above: Result Comment: Fast ing Glucose result greater than or equal to 126 mg/dL suggests DIABETES MELLITUS per A.D.A. criteria. Performed By: #### L 500.4050, L100.0100 #### [facility] [address] [place], [address] Potassium [Moles/Vol] 4.0 mmol/L Normal 3.5-5.1 [facility] Comment on above: Performed By: #### L 500.4050, L100.0100 #### [facility] [address] [place], [address] Sodium [Moles/Vol] 139 mmol/L Normal 136-145 [facility] Comment on above: Performed By: #### L 500.4050, L100.0100 #### [facility] [address] [place], [address] Urea nitrogen [Mass/Vol] 34 mg/dL High 7-18 [facility] Comment on above: Performed By: #### L 500.4050, L100.0100 #### [facility] [address] [place], [address] Bedside Glucoseon 04-16-2024 FINGERSTICK GLU 124 mg/dL High 74-106 [facility] Comment on above: Result Comment: DAVID GEMENT OF PATIENT CARE PER NURSING PROTOCOL Performed By: #### L 500.4050, L100.0100 #### [facility] [address] [place], [address] FINGERSTICK GLU 180 mg/dL High 74-106 [facility] Comment on above: Result Comment: DAVID GEMENT OF PATIENT CARE PER NURSING PROTOCOL Performed By: #### L 501.080 #### [facility] [address] [place], [address] FINGERSTICK GLU 185 mg/dL High 74-106 [facility] Comment on above: Result Comment: DAVID GEMENT OF PATIENT CARE PER NURSING PROTOCOL Performed By: #### L 500.4050, L100.0100 #### [facility] [address] [place], [address] FINGERSTICK GLU 141 mg/dL High 74-106 [facility] Comment on above: Result Comment: DAVID GEMENT OF PATIENT CARE PER NURSING PROTOCOL Performed By: #### L 500.4050, L100.0100 #### [facility] [address] [place], [address] CBC-Complete Blood Cnt No Di ffon 04-16-2024 Erythrocyte distribution width (RBC) [Ratio] 13.8 % Normal 11.6-14.6 [facility] Comment on above: Performed By: #### L 500.4050, L100.0100 #### [facility] [address] [place], [address] Hematocrit (Bld) [Volume fraction] 43.7 % Normal 40-54 [facility] Comment on above: Performed By: #### L 500.4050, L100.0100 #### [facility] [address] [place], [address] Hemoglobin (Bld) [Mass/Vol] 14.3 g/dL Normal 13.0-16.5 [facility] Comment on above: Performed By: #### L 500.4050, L100.0100 #### [facility] [address] [place], [address] MCH (RBC) [Entitic mass] 31.3 pg Normal 27.0-32.0 [facility] Comment on above: Performed By: #### L 500.4050, L100.0100 #### [facility] [address] [place], [address] MCHC (RBC) [Mass/Vol] 32.7 g/dL Normal 32-36 [facility] Comment on above: Performed By: #### L 500.4050, L100.0100 #### [facility] [address] [place], [address] MCV (RBC) [Entitic vol] 95.6 fL High 80-94 [facility] Comment on above: Performed By: #### L 500.4050, L100.0100 #### [facility] [address] [place], [address] Platelet mean volume (Bld) [Entitic vol] 10.6 fL Normal 6.2-12.0 [facility] Comment on above: Performed By: #### L 500.4050, L100.0100 #### [facility] [address] [place], [address] Platelets (Bld) [#/Vol] 126 10*3/uL Low 150-450 [facility] Comment on above: Performed By: #### L 500.4050, L100.0100 #### [facility] [address] [place], [address] RBC (Bld) [#/Vol] 4.57 10*6/uL Low 4.6-6.2 [facility] Comment on above: Performed By: #### L 500.4050, L100.0100 #### [facility] [address] [place], [address] RDW SD 48.6 fl High 35.1-43.9 [facility] Comment on above: Performed By: #### L 500.4050, L100.0100 #### [facility] [address] [place], [address] WBC (Bld) [#/Vol] 6.0 10*3/uL Normal 4.4-11.0 [facility] Comment on above: Performed By: #### L 500.4050, L100.0100 #### [facility] [address] [place], [address] Bedside Glucoseon 04-15-2024 FINGERSTICK GLU 205 mg/dL High 74-106 [facility] Comment on above: Result Comment: DAVID GEMENT OF PATIENT CARE PER NURSING PROTOCOL Performed By: #### L 501.080 #### [facility] [address] [place], [address] FINGERSTICK GLU 149 mg/dL High 74-106 [facility] Comment on above: Result Comment: DAVID GEMENT OF PATIENT CARE PER NURSING PROTOCOL Performed By: #### L 500.4050, L100.0100 #### [facility] [address] [place], [address] FINGERSTICK GLU 218 mg/dL High 74-106 [facility] Comment on above: Result Comment: DAVID GEMENT OF PATIENT CARE PER NURSING PROTOCOL Performed By: #### L 500.4050, L100.0100 #### [facility] [address] [place], [address] FINGERSTICK GLU 155 mg/dL High 74-106 [facility] Comment on above: Result Comment: DAVID REED OF PATIENT CARE PER NURSING PROTOCOL Performed By: #### L 500.4050, L100.0100 #### [facility] [address] [place], [address] CBC W/Diff, Automatedon 01-0 8-2024 Absolute Lymph 1.49 X10 3/uL Normal 0.83-4.51 [facility] Comment on above: Performed By: #### L 500.4050, L100.0100 #### [facility] [address] [place], [address] Absolute Neut 4.0 X10 3/uL Normal 2.0-7.7 [facility] Comment on above: Performed By: #### L 500.4050, L100.0100 #### [facility] [address] [place], [address] Basophils/100 WBC (Bld) 0.5 % Normal 0-1 [facility] Comment on above: Performed By: #### L 500.4050, L100.0100 #### [facility] [address] [place], [address] Eosinophils/100 WBC (Bld) 5.6 % High 0-5 [facility] Comment on above: Performed By: #### L 500.4050, L100.0100 #### [facility] [address] [place], [address] Erythrocyte distribution width (RBC) [Ratio] 13.7 % Normal 11.6-14.6 [facility] Comment on above: Performed By: #### L 500.4050, L100.0100 #### [facility] [address] [place], [address] Hematocrit (Bld) [Volume fraction] 44.1 % Normal 40-54 [facility] Comment on above: Performed By: #### L 500.4050, L100.0100 #### [facility] [address] [place], [address] Hemoglobin (Bld) [Mass/Vol] 14.5 g/dL Normal 13.0-16.5 [facility] Comment on above: Performed By: #### L 500.4050, L100.0100 #### [facility] [address] [place], [address] IG% 0.300 Normal 0.0-0.9 [facility] Comment on above: Result Comment: IG% - Immature Granulocytes (promyelocytes, myelocytes and metamyelocytes) > 1% indicates that a LEFT SHIFT is Present. Performed By: #### L 500.4050, L100.0100 #### [facility] [address] [place], [address] Lymphocytes/100 WBC (Bld) 22.4 % Normal 19-41 [facility] Comment on above: Performed By: #### L 500.4050, L100.0100 #### [facility] [address] [place], [address] MCH (RBC) [Entitic mass] 31.0 pg Normal 27.0-32.0 [facility] Comment on above: Performed By: #### L 500.4050, L100.0100 #### [facility] [address] [place], [address] MCHC (RBC) [Mass/Vol] 32.9 g/dL Normal 32-36 [facility] Comment on above: Performed By: #### L 500.4050, L100.0100 #### [facility] [address] [place], [address] MCV (RBC) [Entitic vol] 94.4 fL High 80-94 [facility] Comment on above: Performed By: #### L 500.4050, L100.0100 #### [facility] [address] [place], [address] Monocytes/100 WBC (Bld) 11.6 % High 0-10 [facility] Comment on above: Performed By: #### L 500.4050, L100.0100 #### [facility] [address] [place], [address] Neutrophils/100 WBC (Bld) 59.6 % Normal 47-70 [facility] Comment on above: Performed By: #### L 500.4050, L100.0100 #### [facility] [address] [place], [address] Nucleated RBC (Bld) [#/Vol] 0 10*3/uL Normal 0-5 [facility] Comment on above: Performed By: #### L 500.4050, L100.0100 #### [facility] [address] [place], [address] Platelet mean volume (Bld) [Entitic vol] 10.2 fL Normal 6.2-12.0 [facility] Comment on above: Performed By: #### L 500.4050, L100.0100 #### [facility] [address] [place], [address] Platelets (Bld) [#/Vol] 130 10*3/uL Low 150-450 [facility] Comment on above: Performed By: #### L 500.4050, L100.0100 #### [facility] [address] [place], [address] RBC (Bld) [#/Vol] 4.67 10*6/uL Normal 4.6-6.2 [facility] Comment on above: Performed By: #### L 500.4050, L100.0100 #### [facility] [address] [place], [address] RDW SD 47.8 fl High 35.1-43.9 [facility] Comment on above: Performed By: #### L 500.4050, L100.0100 #### [facility] [address] [place], [address] WBC (Bld) [#/Vol] 6.7 10*3/uL Normal 4.4-11.0 [facility] Comment on above: Performed By: #### L 500.4050, L100.0100 #### [facility] [address] [place], [address] Comprehensive Metabolic Prof ilon 04-15-2024 Albumin [Mass/Vol] 3.2 g/dL Normal 3.2-5.0 [facility] Comment on above: Performed By: #### L 500.4050, L100.0100 #### [facility] [address] [place], [address] Albumin/Globulin [Mass ratio] 1.0 {ratio} Normal 0.9-2.4 [facility] Comment on above: Performed By: #### L 500.4050, L100.0100 #### [facility] [address] [place], [address] ALK P 92 U/L Normal 45-117 [facility] Comment on above: Performed By: #### L 500.4050, L100.0100 #### [facility] [address] [place], [address] ALT [Catalytic activity/Vol] 20 U/L Normal 16-61 [facility] Comment on above: Performed By: #### L 500.4050, L100.0100 #### [facility] [address] [place], [address] AST [Catalytic activity/Vol] 12 U/L Low 15-37 [facility] Comment on above: Performed By: #### L 500.4050, L100.0100 #### [facility] [address] [place], [address] Bilirubin [Mass/Vol] 1.90 mg/dL High 0.20-1.00 [facility] Comment on above: Result Comment: For patients on eltrombopag therapy, use of Dimension [place] TBIL is not recommended. Performed By: #### L 500.4050, L100.0100 #### [facility] [address] [place], [address] BUN/CRE 16.8 RATIO Normal 10-20 [facility] Comment on above: Performed By: #### L 500.4050, L100.0100 #### [facility] [address] [place], [address] CA,Total 9.1 mg/dL Normal 8.5-10.1 [facility] Comment on above: Performed By: #### L 500.4050, L100.0100 #### [facility] [address] [place], [address] Chloride [Moles/Vol] 108 mmol/L High 98-107 [facility] Comment on above: Performed By: #### L 500.4050, L100.0100 #### [facility] [address] [place], [address] CO2 [Moles/Vol] 27.0 mmol/L Normal 21.0-32.0 [facility] Comment on above: Performed By: #### L 500.4050, L100.0100 #### [facility] [address] [place], [address] Creatinine [Mass/Vol] 1.55 mg/dL High 0.70-1.30 [facility] Comment on above: Result Comment: The validity of the calculated GFR GFRAA in patients over 70 years has not been determined. Clinical correlation is essential. Performed By: #### L 500.4050, L100.0100 #### [facility] [address] [place], [address] ECRCL 42.93 ml/min Normal [facility] Comment on above: Performed By: #### L 500.4050, L100.0100 #### [facility] [address] [place], [address] EST GFR - AA 56 mL/min Low >60 [facility] Comment on above: Result Comment: Afri can Cuban GFR Calc Performed By: #### L 500.4050, L100.0100 #### [facility] [address] [place], [address] GAP 5 Normal 5-15 [facility] Comment on above: Performed By: #### L 500.4050, L100.0100 #### [facility] [address] [place], [address] GFR/1.73 sq M.predicted among non-blacks MDRD (S/P/Bld) [Vol rate/Area] 46 mL/min/{1.73_m2} Low >60 [facility] Comment on above: Result Comment: Non- GFR Calc Performed By: #### L 500.4050, L100.0100 #### [facility] [address] [place], [address] Globulin (S) [Mass/Vol] 3.2 g/dL Normal 2.2-4.2 [facility] Comment on above: Performed By: #### L 500.4050, L100.0100 #### [facility] [address] [place], [address] Glucose [Mass/Vol] 143 mg/dL High 74-106 [facility] Comment on above: Result Comment: Fast ing Glucose result greater than or equal to 126 mg/dL suggests DIABETES MELLITUS per A.D.A. criteria. Performed By: #### L 500.4050, L100.0100 #### [facility] [address], [address] Potassium [Moles/Vol] 3.9 mmol/L Normal 3.5-5.1 [facility] Comment on above: Performed By: #### L 500.4050, L100.0100 #### [facility] [address] [place], [address] Sodium [Moles/Vol] 140 mmol/L Normal 136-145 [facility] Comment on above: Performed By: #### L 500.4050, L100.0100 #### [facility] [address] [place], [address] T PROT 6.4 g/dL Normal 6.4-8.2 [facility] Comment on above: Performed By: #### L 500.4050, L100.0100 #### [facility] [address] [place], [address] Urea nitrogen [Mass/Vol] 26 mg/dL High 7-18 [facility] Comment on above: Performed By: #### L 500.4050, L100.0100 #### [facility] [address] [place], [address] 12 Lead EKGon 04-14-2024 12 Lead EKG [facility] [address] [place] [address] 12 Lead EKG 04/14/24 1459 MR#: [id number] Acct: [id number] Name: KIMBERLY NAVA Rep #: [id number] : 1945 79 From: Vikash Quintana MD Attending Dr: Dr. Toshia Pro MD Status: ADM IN Ordering Dr: Buddy Andrews MD Date: 04/14/24 Location: [facility]3 Sex: M C Admitted: 04/14/24 Test Reason : FALL/HIP PAIN Blood Pressure : */* mmHG Vent. 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 Buddy Andrews MD; Dr. Kobi Adair MD; Dr. Toshia Pro MD Signed Normal [facility] Basic Metabolic Profile (BMP )on 04-14-2024 BUN/CRE 15.3 RATIO Normal 10-20 [facility] Comment on above: Performed By: #### L 500.2500, L100.0100 #### [facility] [address] [place], [address] CA,Total 8.7 mg/dL Normal 8.5-10.1 [facility] Comment on above: Performed By: #### L 500.2500, L100.0100 #### [facility] [address] [facility] [place], [address] Chloride [Moles/Vol] 106 mmol/L Normal 98-107 [facility] Comment on above: Performed By: #### L 500.2500, L100.0100 #### [facility] [address] [place], [address] CO2 [Moles/Vol] 26.0 mmol/L Normal 21.0-32.0 [facility] Comment on above: Performed By: #### L 500.2500, L100.0100 #### [facility] [address] [place], [address] Creatinine [Mass/Vol] 1.70 mg/dL High 0.70-1.30 [facility] Comment on above: Result Comment: The validity of the calculated GFR GFRAA in patients over 70 years has not been determined. Clinical correlation is essential. Performed By: #### L 500.2500, L100.0100 #### [facility] [address] [place], [address] ECRCL 40.90 ml/min Normal [facility] Comment on above: Performed By: #### L 500.2500, L100.0100 #### [facility] [address] [place], [address] EST GFR - AA 50 mL/min Low >60 [facility] Comment on above: Result Comment: Afri can Cuban GFR Calc Performed By: #### L 500.2500, L100.0100 #### [facility] [address] [place], [address] GAP 6 Normal 5-15 [facility] Comment on above: Performed By: #### L 500.2500, L100.0100 #### [facility] [address] [place], [address] GFR/1.73 sq M.predicted among non-blacks MDRD (S/P/Bld) [Vol rate/Area] 42 mL/min/{1.73_m2} Low >60 [facility] Comment on above: Result Comment: Non- GFR Calc Performed By: #### L 500.2500, L100.0100 #### [facility] [address] [place], [address] Glucose [Mass/Vol] 194 mg/dL High 74-106 [facility] Comment on above: Result Comment: Fast ing Glucose result greater than or equal to 126 mg/dL suggests DIABETES MELLITUS per A.D.A. criteria. Performed By: #### L 500.2500, L100.0100 #### [facility] [address] [place], [address] Potassium [Moles/Vol] 3.7 mmol/L Normal 3.5-5.1 [facility] Comment on above: Performed By: #### L 500.2500, L100.0100 #### [facility] [address] [place], [address] Sodium [Moles/Vol] 138 mmol/L Normal 136-145 [facility] Comment on above: Performed By: #### L 500.2500, L100.0100 #### [facility] [address] [place], [address] Urea nitrogen [Mass/Vol] 26 mg/dL High 7-18 [facility] Comment on above: Performed By: #### L 500.2500, L100.0100 #### [facility] [address] [place], [address] Bedside Glucoseon - FINGERSTICK GLU 188 mg/dL High 74-106 [facility] Comment on above: Result Comment: DAVID GEMENT OF PATIENT CARE PER NURSING PROTOCOL Performed By: #### L 501.080 #### [facility] [address] [place], [address] FINGERSTICK GLU 106 mg/dL Normal 74-106 [facility] Comment on above: Result Comment: DAVID GEMENT OF PATIENT CARE PER NURSING PROTOCOL Performed By: #### L 501.080 #### [facility] [address] [place], [address] CBC W/Diff, Automatedon - Absolute Lymph 1.32 X10 3/uL Normal 0.83-4.51 [facility] Comment on above: Performed By: #### L 500.2500, L100.0100 #### [facility] [address] [place], [address] Absolute Neut 4.1 X10 3/uL Normal 2.0-7.7 [facility] Comment on above: Performed By: #### L 500.2500, L100.0100 #### [facility] [address] [place], [address] Basophils/100 WBC (Bld) 0.5 % Normal 0-1 [facility] Comment on above: Performed By: #### L 500.2500, L100.0100 #### [facility] [address] [place], [address] Eosinophils/100 WBC (Bld) 4.9 % Normal 0-5 [facility] Comment on above: Performed By: #### L 500.2500, L100.0100 #### [facility] [address] [place], [address] Erythrocyte distribution width (RBC) [Ratio] 13.5 % Normal 11.6-14.6 [facility] Comment on above: Performed By: #### L 500.2500, L100.0100 #### [facility] [address] [place], [address] Hematocrit (Bld) [Volume fraction] 44.3 % Normal 40-54 [facility] Comment on above: Performed By: #### L 500.2500, L100.0100 #### [facility] [address] [place], [address] Hemoglobin (Bld) [Mass/Vol] 14.7 g/dL Normal 13.0-16.5 [facility] Comment on above: Performed By: #### L 500.2500, L100.0100 #### [facility] [address] [place], [address] IG% 0.300 Normal 0.0-0.9 [facility] Comment on above: Result Comment: IG% - Immature Granulocytes (promyelocytes, myelocytes and metamyelocytes) > 1% indicates that a LEFT SHIFT is Present. Performed By: #### L 500.2500, L100.0100 #### [facility] [address] [place], [address] Lymphocytes/100 WBC (Bld) 20.7 % Normal 19-41 [facility] Comment on above: Performed By: #### L 500.2500, L100.0100 #### [facility] [address] [place], [address] MCH (RBC) [Entitic mass] 31.1 pg Normal 27.0-32.0 [facility] Comment on above: Performed By: #### L 500.2500, L100.0100 #### [facility] [address] [place], [address] MCHC (RBC) [Mass/Vol] 33.2 g/dL Normal 32-36 [facility] Comment on above: Performed By: #### L 500.2500, L100.0100 #### [facility] [address] [place], [address] MCV (RBC) [Entitic vol] 93.9 fL Normal 80-94 [facility] Comment on above: Performed By: #### L 500.2500, L100.0100 #### [facility] [address] [place], [address] Monocytes/100 WBC (Bld) 10.0 % Normal 0-10 [facility] Comment on above: Performed By: #### L 500.2500, L100.0100 #### [facility] [address] [place], [address] Neutrophils/100 WBC (Bld) 63.6 % Normal 47-70 [facility] Comment on above: Performed By: #### L 500.2500, L100.0100 #### [facility] [address] [place], [address] Nucleated RBC (Bld) [#/Vol] 0 10*3/uL Normal 0-5 [facility] Comment on above: Performed By: #### L 500.2500, L100.0100 #### [facility] [address] [place], [address] Platelet mean volume (Bld) [Entitic vol] 10.4 fL Normal 6.2-12.0 [facility] Comment on above: Performed By: #### L 500.2500, L100.0100 #### [facility] [address] [place], [address] Platelets (Bld) [#/Vol] 129 10*3/uL Low 150-450 [facility] Comment on above: Performed By: #### L 500.2500, L100.0100 #### [facility] [address] [place], [address] RBC (Bld) [#/Vol] 4.72 10*6/uL Normal 4.6-6.2 [facility] Comment on above: Performed By: #### L 500.2500, L100.0100 #### [facility] [address] [place], [address] RDW SD 46.1 fl High 35.1-43.9 [facility] Comment on above: Performed By: #### L 500.2500, L100.0100 #### [facility] [address] [place], [address] WBC (Bld) [#/Vol] 6.4 10*3/uL Normal 4.4-11.0 [facility] Comment on above: Performed By: #### L 500.2500, L100.0100 #### [facility] [address] [place], [address] Emergency Department Summary on 04-14-2024 Emergency Department Summary [facility] Medical Records Department [address] [place] [address] Emergency Department Summary 04/14/24 MR#: [id number] Acct: [id number] Name: KIMBERLY NAVA Rep #: [id number] : 1945 79 From: Buddy Andrews MD PCP: Dr. Kobi Adair MD Status:REG ER Location: ED HPI History of Present Illness Chief Complaint: Lower Extremity Injury Narrative Narrative: 79-year-old male past medical history of diabetes, hypertension, hypercholesterolemia presents with inability to bear weight on his left leg and left hip pain from a fall on Saturday, 2 days ago. He states that he was taking out the trash and slipped and fell on the ice. He had 2 neighbors help him into the house. Since then he has been using his walker, and sitting because he is unable to stand or bear weight on his left leg. He has pain that is worse with movement. He also complains of left rib pain. He denies hitting his head or loss of consciousness. He does not take blood thinners. He and his called EMS because of his inability to ambulate and continued left lower extremity pain. [facility] Medical History (Updated 04/14/24 @ 15:01 by Buddy Andrews MD) History of COVID-19 History of DVT (deep vein thrombosis) Coronary artery disease Essential hypertension Tubular adenoma of colon Chronic diastolic heart failure ANABELL (obstructive sleep apnea) Insomnia Vitamin D deficiency Proteinuria BPH (benign prostatic hyperplasia) Restless leg syndrome Hypertensive heart disease with acute diastolic congestive heart failure Mixed hyperlipidemia Allergic rhinitis Diabetes Depression GERD (gastroesophageal reflux disease) Obesity Hypothyroid CHF (congestive heart failure) Hyperlipidemia Home Medications ???Medication ???Instructions ???Recorded ???Last Taken ???Type aspirin 81 mg chewable tablet 81 mg PO DAILY heart health 03/10/13 04/14/24 History atorvastatin 40 mg tablet 40 mg PO QHS cholesterol 03/10/13 04/13/24 History isosorbide mononitrate 30 mg 30 mg PO DAILY heart 03/10/13 04/14/24 History tablet,extended release 24 hr levothyroxine 200 mcg tablet 200 mcg PO DAILY thyroid 03/10/13 04/14/24 History (Levoxyl) losartan 50 mg tablet 50 mg PO DAILY blood pressure 03/10/13 04/14/24 History metoprolol tartrate 50 mg tablet 50 mg PO DAILY blood pressure 03/10/13 04/14/24 History nitroglycerin 0.4 mg sublingual 0.4 mg sublingual Q5M PRN Chest 03/10/13 05/02/18 History tablet Pain sertraline 50 mg tablet 50 mg PO DAILY mental health 04/14/15 05/02/18 History sitagliptin phosphate 100 mg 100 mg PO DAILY diabetes 04/14/15 05/02/18 History tablet (Januvia) famotidine 10 mg tablet 10 mg PO BID reflux 02/18/21 04/14/24 History furosemide 20 mg tablet 20 mg PO BID diuretic 02/18/21 04/14/24 History magnesium oxide 400 mg (241.3 mg 400 mg PO DAILY supplement 02/18/21 04/14/24 History magnesium) tablet semaglutide 0.25 mg or 0.5 mg (2 0.5 mg subcut TH diabetes 02/18/21 Unknown History mg/1.5 mL) subcutaneous pen injector (Ozempic) trospium 20 mg tablet 20 mg PO BID bladder 02/18/21 04/14/24 History carbidopa ER 25 mg-levodopa 100 mg 1 tab PO QHS 04/14/24 04/13/24 History tablet,extended release insulin glargine 100 unit/mL (3 45 unit subcut DAILY 04/14/24 04/14/24 History mL) subcutaneous pen (Lantus Solostar U-100 Insulin) multivitamin with iron 1 tab PO DAILY 04/14/24 04/14/24 History vit C 250 mg-vit E 90 mg-zinc 40 1 tab PO BID 04/14/24 04/14/24 History mg-copper 1 ie-jurzir-axjexr capsule (PreserVision AREDS-2) Allergy/AdvReac Type Severity Reaction Status Date / Time Anesthetics - Amide Type - Allergy Other Verified 10/02/22 14:21 [facility] - Rivka Type- Allergy Other Verified 10/02/22 14:21 Parabens albuterol AdvReac Mild thrush Verified 05/19/21 18:40 Family History (Updated 05/20/21 @ 00:[address] Liliane Lowe MD) Father CAD (coronary artery disease) Myocardial infarction Diabetes Heart disease Hypertension Brother Hypertension Diabetes Surgical History (Updated 05/20/21 @ 00:[address] Liliane Lowe MD) S/P thyroidectomy S/P arthroscopic knee surgery S/P hemorrhoidectomy Hx of elbow surgery S/P CABG x 4 S/P coronary artery stent placement Hx of mitral valve repair Social History (Updated 05/20/21 @ 00:[address] Liliane Lowe MD) household members: spouse Smoking Status: Former smoker quit date: 09/26/73 pack-years: 5 how long ago did patient quit smoking: Additional chew tobacco use history, quit 01/15/2007. alcohol intake: never substance use type: does not use ROS ROS ED ROS Narrative Review of systems positive for left lower extremity pain, left hip pain that is worse with weightbearing and movement. Also complains of left rib pain. No headaches, (more content not included)... Normal [facility] Extremity Lower without Cont raon 04-14-2024 Extremity Lower without Contra [facility] Imaging Services [address] [place], [place] [id number] Extremity Lower without Contra MR#: [id number] Acct: [id number] Name: KIMBERLY NAVA Rep #: [id number] : 1945 M 79 From: Christin turner MD PCP: Dr. Kobi Adair MD Status: REG ER Study: Extremity Lower without Contra Date of Exam: 0 04/14/24 Exam# [id number] Ordering Dr: Buddy Andrews MD [id number] HISTORY: Trauma, pain. TECHNIQUE: Helically acquired images were obtained of the left hip without contrast. 2-D reformats were performed by the technologist. A radiation dose optimization technique was used for this scan. 404 images. COMPARISON: XR same day. FINDINGS: BONES: Nondisplaced comminuted fracture of the greater trochanter. No other acute fracture identified. JOINT SPACES: No dislocation. Mild degenerative changes of the left hip. SOFT TISSUES: Mild lateral subcutaneous and intramuscular edema. Enlarged prostate with calcifications. CT/Extremity Lower without Contra IMPRESSION: Nondisplaced comminuted fracture of the left greater trochanter. Electronically Signed: Christin Villeda MD at 13:30 EST Reading Location ID and State: [facility] / [place] Tel , Service support , CC: Dr. Buddy Andrews MD; Dr. Kobi Adair MD Truck Spotter: Signed Normal [facility] H AND P Exam - Hospitaliston 04-14-2024 H&P Exam - Hospitalist [facility] Medical Records Department [address] [place] [address] H P Exam - Hospitalist 04/14/24 1440 MR#: [id number] Acct: [id number] Name: KIMBERLY NAVA Rep #: [id number] : 1945 79 From: Liliane Lowe MD PCP: Dr. Kobi Adair MD Status:ADM IN Location: [facility] JR351-4 HPI - General General Date of Admission: 04/14/24 Date of Service: 04/14/24 Chief Complaint: Fall, L hip pain/L chest pain HPI Narrative The patient is a 79 y/o M w/ PMHx: Former tobacco use, CKD stage III unclear subtype per GFR trending, Chronic thrombocytopenia, Obesity, Hx VTE (DVT), Hx COVID-19, HTN, HLD, HFpEF, ANABELL, RLS, BPH with obstructive pathology, Anxiety and Depression, Hypothyroidism, Diabetes mellitus type II, CAD s/p CABG x 4 and PCI, Valvular Heart Disease s/p MV repair who presents to the [facility] ED on 04/14/24 with history of mechanical fall unfortunately 2 days prior to current presentation on Saturday with significant pain to the left leg and hip with inability to bear weight occurring when he slipped while taking the trash out falling on the ice with since then utilization of a walker and required continuous sitting secondary to inability to even stand or bear weight with severe pain with any movement attempts with also left rib pain with no loss consciousness or head trauma eventually prompting family to call EMS secondary to severe debility and pain. Workup in the ED included T98.5, heart rate 93, BP 110/56, respiratory rate 18, 98% on room air, CBC with WBC 6.4, hemoglobin 14.7, platelet 129 without marked shift, BMP with BUN/creatinine 26/1.70, GFR 42, glucose of 194, plain film of the left hip and pelvis with mild degenerative arthrosis of the hip joints bilaterally with no demonstrated acute fracture, unilateral left ribs with chest with no acute fractures, cardiomegaly evident, CT of the left hip without contrast with evidence of a nondisplaced comminuted fracture of the left greater trochanteric. Patient notes currently at rest his pain is controlled however if he attempts to bear any weight he notes his pain is severe stabbing and rates it 8 out of 10 in severity. He denies any radiculopathy or paresthesias with the pain. The ED discussed case with Dr. Patel who notes this is non-operative and patient may be weight bearing as tolerated. [facility] Medical History Former tobacco use History of COVID-19 History of DVT (deep vein thrombosis) Coronary artery disease Essential hypertension Tubular adenoma of colon Chronic diastolic heart failure ANABELL (obstructive sleep apnea) Insomnia Vitamin D deficiency Proteinuria BPH (benign prostatic hyperplasia) Restless leg syndrome Hypertensive heart disease with acute diastolic congestive heart failure Mixed hyperlipidemia Allergic rhinitis Diabetes Depression GERD (gastroesophageal reflux disease) Obesity Hypothyroid CHF (congestive heart failure) Hyperlipidemia Home Medications ???Medication ???Instructions ???Recorded ???Last Taken ???Type aspirin 81 mg chewable tablet 81 mg PO DAILY heart health 03/10/13 04/14/24 History atorvastatin 40 mg tablet 40 mg PO QHS cholesterol 03/10/13 04/13/24 History isosorbide mononitrate 30 mg 30 mg PO DAILY heart 03/10/13 04/14/24 History tablet,extended release 24 hr levothyroxine 200 mcg tablet 200 mcg PO DAILY thyroid 03/10/13 04/14/24 History (Levoxyl) losartan 50 mg tablet 50 mg PO DAILY blood pressure 03/10/13 04/14/24 History metoprolol tartrate 50 mg tablet 50 mg PO DAILY blood pressure 03/10/13 04/14/24 History nitroglycerin 0.4 mg sublingual 0.4 mg sublingual Q5M PRN Chest 03/10/13 05/02/18 History tablet Pain sertraline 50 mg tablet 50 mg PO DAILY mental health 04/14/15 05/02/18 History sitagliptin phosphate 100 mg 100 mg PO DAILY diabetes 04/14/15 05/02/18 History tablet (Januvia) famotidine 10 mg tablet 10 mg PO BID reflux 02/18/21 04/14/24 History furosemide 20 mg tablet 20 mg PO BID diuretic 02/18/21 04/14/24 History magnesium oxide 400 mg (241.3 mg 400 mg PO DAILY supplement 02/18/21 04/14/24 History magnesium) tablet semaglutide 0.25 mg or 0.5 mg (2 0.5 mg subcut TH diabetes 02/18/21 Unknown History mg/1.5 mL) subcutaneous pen injector (Ozempic) trospium 20 mg tablet 20 mg PO BID bladder 02/18/21 04/14/24 History carbidopa ER 25 mg-levodopa 100 mg 1 tab PO QHS 04/14/24 04/13/24 History tablet,extended release insulin glargine 100 unit/mL (3 45 unit subcut DAILY 04/14/24 04/14/24 History mL) subcutaneous pen (Lantus Solostar U-100 Insulin) multivitamin with iron 1 tab PO DAILY 04/14/24 04/14/24 History vit C 250 mg-vit E 90 mg-zinc 40 1 tab PO BID 04/14/24 04/14/24 History mg-copper 1 dt-kskeiv-tquacp capsule (PreserVision AREDS-2) Allergy/AdvRea (more content not included)... Normal [facility] HIP, UNI W/ Pelvis 2-3 Views on 04-14-2024 HIP, UNI W/ Pelvis 2-3 Views [facility] Imaging Services [address] [place] [address] HIP, UNI W/ Pelvis 2-3 Views MR#: [id number] Acct: [id number] Name: KIMBERLY NAVA Rep #: [id number] : 1945 M 79 From: Kimberly Howe MD PCP: Dr. Kobi Adair MD Status: REG ER Study: HIP, UNI W/ Pelvis 2-3 Views Date of Exam: 10/30 Exam# [id number] Ordering Dr: Buddy Andrews MD [id number] STUDY: X-RAY - PELVIS AND LEFT HIP REASON FOR EXAM: Male, 79 years old. Trauma, slipped on ice x 2 days. TECHNIQUE: 3 views of the pelvis and left hip. COMPARISON: None. FINDINGS: There is a non-specific bowel gas pattern. There are mild atherosclerotic vascular calcifications of the femoral arteries. There are multiple calcified phleboliths. Normal bilateral iliac wings, sacroiliac joints and visualized sacrum. Normal bilateral superior and inferior pubic rami. Normal pubic symphysis. Normal bilateral ischial tuberosities. Intact visualized femoral heads bilaterally. Intact acetabula bilaterally. There is mild articular joint space narrowing of the hips bilaterally. There is no demonstrated acute fracture. RAD/HIP, UNI W/ Pelvis 2-3 Views IMPRESSION: Mild degenerative arthrosis of the hip joints bilaterally. No demonstrated acute fracture. Electronically Signed: Kimberly Howe MD at 12:13 EST Reading Location ID and State: [address] [place] [address] , Service support , CC: Dr. Buddy Andrews MD; Dr. Kobi Adair MD Truck Spotter: Signed Normal [facility] Magnesiumon 04-14-2024 Magnesium [Mass/Vol] 2.4 mg/dL Normal 1.6-2.6 [facility] Comment on above: Order Comment: Comme nts: may add to ED labs Performed By: #### L 501.5200 #### [facility] [address] [facility] [place], [address] Ribs Uni Min 3V w/PA Cheston 04-14-2024 Ribs Uni Min 3V w/PA Chest [facility] Imaging Services [address] [place], [place] [id number] ([phone]) Ribs Uni Min 3V w/PA Chest MR#: [id number] Acct: [id number] Name: KIMBERLY NAVA Rep #: [id number] : 1945 M 79 From: Kimberly Howe MD PCP: Dr. Kobi Adair MD Status: REG ER Study: Ribs Uni Min 3V w/PA Chest Date of Exam: 04/14 Exam# [id number] Ordering Dr: Buddy Andrews MD [id number] STUDY: X-RAY - UNILATERAL RIBS ( LEFT ) WITH CHEST REASON FOR EXAM: Male, 79 years old. Trauma. TECHNIQUE - RIBS: 4 views of the left ribs. TECHNIQUE - CHEST: 2 frontal views of the chest. COMPARISON: None. FINDINGS - RIBS: Normal visualized left ribs without a demonstrated fracture. FINDINGS - CHEST: There are sternal cerclage wires in place. The lungs are clear and expanded. There is no demonstrated pleural abnormality. There is cardiomegaly. Normal mediastinum and polo. Normal visualized pulmonary arteries. There are atherosclerotic calcifications of the aortic arch. Normal visualized thoracic spine. Normal visualized ribs, clavicles, and shoulders. There is no demonstrated abnormality of the visualized soft tissue structures of the upper abdomen. RAD/Ribs Uni Min 3V w/PA Chest IMPRESSION: RIBS: No acute left rib fracture. CHEST: Cardiomegaly. Electronically Signed: Kimberly Howe MD at 12:10 EST , CC: Dr. Buddy Andrews MD; Dr. Kobi Adair MD Truck Spotter: Signed [facility] 12-17-2023 [facility] Telephone (INTMWS) KIMBERLY NAVA ([id number]) 1945 M Date Time Provider Department 12/17/23 NIKIA ADAIRWS During your visit today, we recorded the following information about you: Brandi Tracey LPN 12/17/2023 11:18 AM Signed Per Kimberly, it is time to renew Handicapped Placard, asking for PCP (Dr. Adair) to write letter. [facility] not [facility] for Hand[facility]ac[facility], please call when ready for pickup. Nikia See LPN, MD 12/17/2023 11:37 AM Signed We have not seen him since 2021 and his chart no longer has me listed as his PCP. If we are still managing his care, he will need OV for this and to follow up on his diabetes and other chronic medical conditions. Alicja Galeas MA 12/17/2023 11:41 AM Signed Pt notified. [facility] Advised him that the [facility] should be able to write the placard. He said he was given one by the [facility] but [facility] [facility] would not accept as it was signed by DRYWALL TAPER not MD. I instructed pt that [facility] by an MD. Pt voiced understanding. Alicja Galeas MA Allergies As of Date: 12/17/2023 Noted Allergy Reaction INHALED ANESTHETICS (HALOGEN BASE*05/28/2007 MEVACOR (LOVASTATIN) 04/11/2007 Comments: Patient's tongue swelled Date Reviewed: 10/28/2023 Reviewed by: Toshia Leonard, RN - Fully Assessed Reason for Visit: Letter [264] Prescriptions as of 12/17/2023 - insulin glargine (LANTUS SOLOSTAR U-100 INSULIN) 100 unit/mL (3 mL) Inject 55 Units subcutaneously once daily as directed - insulin lispro (HUMALOG U-100 INSULIN) 100 unit/mL injection Take 22 units subcutaneously with dinner - semaglutide (OZEMPIC) 0.25 mg or 0.5 mg(2 mg/1.5 mL) pen injector Inject 1 mg weekly every Thrusday - levothyroxine (SYNTHROID) 25 mcg tablet Take 1 tablet by mouth once daily. Take on empty stomach. For thyroid. - metoprolol tartrate, short acting, (LOPRESSOR) 50 mg tablet Take 2 tablets in AM and 1.5 tablets in the evening - atorvastatin (LIPITOR) 80 mg tablet Take 0.5 tablets by mouth once daily. ID # [id number] - clopidogrel (PLAVIX) 75 mg tablet Take 1 tablet by mouth once daily. - furosemide (LASIX) 20 mg tablet Take 1 tablet by mouth twice daily. - famotidine (PEPCID) 10 mg tablet Take 1 tablet by mouth twice daily. - losartan (COZAAR) 100 mg tablet Take 1 tablet by mouth once daily. ID # [id number] - trospium (SANCTURA) 20 mg tablet Take 1 tablet by mouth twice daily. - levothyroxine (SYNTHROID) 200 mcg tablet Take one tablet daily. - tamsulosin (FLOMAX) 0.4 mg Take 2 capsules by mouth daily at bedtime. - nitroglycerin sublingual (NITROSTAT) 0.4 mg SL tablet Dissolve 1 tablet under the tongue as needed. FOR CHEST PAIN. IF NO RELIEF CALL 911 - Magnesium Oxide 420 mg tab Take one tablet by mouth once daily - insulin needles, DISPOSABLE, 31 gauge x 5/16 ndle Use as directed with insulin pen Dx: E11.21 DM: yes insulin: yes - isosorbide mononitrate ER (IMDUR) 30 mg 24 hr tablet Take 30 mg by mouth once daily. - CPAP CHIN STRAP with mask refit optimization, USED WITH CPAP DEVICE - CPAP Please dispense a full face mask for PAP therapy. He liked javon Kristine View full face mask during titration study. Dx ANABELL - potassium chloride ER (K-DUR, KLOR-CON) 10 mEq tablet Take 1 tablet by mouth once daily. - CPAP Pressure change: Bilevel PAP 19/15 cmH2O. Please fax 30 day compliance download to [phone]. Dx: ANABELL, treatment emergent CSA - sertraline (ZOLOFT) 50 mg tablet Take 1 tablet by mouth once daily. - carbidopa-levodopa (SINEMET) 25-100 mg per tablet Take 1 tablet by mouth at bedtime as needed. ID # [id number] - aspirin(ECOTRIN LOW STRENGTH 81 MG TAB) Take one(1) tablet daily. 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*07/28/2007 10/28/2013 Type 2 diabetes mellitus with diabetic polyneur*07/28/2007 Embolism and thrombosis of unspecified site [I7*08/05/2007 10/28/2013 PLANTAR Fasciitis [M72.2] 09/03/2007 10/28/2013 HYPERTROPHIC SCAR///KELOID SCAR [L91.0] 10/06/2007 10/28/2013 Scar condition and fibrosis of skin [L90.5] 10/06/2007 10/28/2013 Sleep apnea [G47.30] 11/06/2007 04/16/2017 Coronary artery disease involving coronary bypa*11/06/2007 11/15/2020 ABNORMAL FINDINGS- ORGANS [R93.89] 11/18/2007 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 Normal [facility] CNOVon 10-28-2023 CNOV Office Visit (CAWSTR ) KIMBERLY NAVA ([id number]) 1945 M Date Time Provider Department 10/28/23 9:40 AM SRIRAM VALLES During your visit today, we recorded the following information about you: Pulse Blood pressure Weight Height 89/minute 133/84 109.1 kg 1.676 m Sriram Valles MD 10/28/2023 10:10 AM Signed Sriram Valles MD Interventional Cardiology [address] [place] [address] [id number] Chief Complaint Patient presents with: Follow Up HISTORY OF PRESENT ILLNESS: Mr. Nava is a 78 year old male seen in my office today for assessment management prior history of severe three-vessel coronary artery disease status post bypass surgery which consisted of a BOWLING to the LAD vein graft to the PDA vein graft to the diagonal with mitral valve ring repair for severe mitral regurgitation is doing well from a cardiac point of view asymptomatic denies chest pain or shortness of breath EKG shows sinus rhythm no signs or symptoms of congestive heart failure Cardiac Risk Factors age (male over 45, female over 55), hyperlipidemia, obesity, diabetes, hypertension, family history of CAD PAST MEDICAL HISTORY Diagnosis Date Acute, but ill-defined, cerebrovascular disease 1970s TIA 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 Hogue Depression Diabetes (HCC) DVT (deep venous thrombosis) (HCC) 2007 Esophageal reflux Generalized osteoarthrosis, unspecified site Hemorrhage of gastrointestinal tract, unspecified History of tobacco use Hypothyroidism Nonspecific (abnormal) findings on radiological and other examination of genitourinary organs 11/18/2007 He has R pelvic Kidney - congenital Obesity (BMI 30-39.9) Obstructive sleep apnea Bipap, seeing [facility] - PAST MEDICAL HISTORY OF 2-08 CT with quad. bypass and valve repair- DVT after Pure hypercholesterolemia Restless leg syndrome Rheum heart dis NEC/NOS CHILD Rheumatic fever S/P MVR (mitral valve repair) Sciatica Sensorineural hearing loss, unspecified Sensorineural hearing loss Stable angina (HCC) Unspecified essential hypertension Unspecified tinnitus Tinnitus PAST SURGICAL HISTORY Procedure Laterality Date COLONOSCOPY FLX DX W/COLLJ SPEC WHEN PFRMD 09/28/05 COLONOSCOPY FLX DX W/COLLJ SPEC WHEN PFRMD 1-5-16 HEMORRHOIDECTOMY INT AND XTRNL 2/> COLUMN/JUANY 04-20-15 Dr. Mc KNEE ARTHROSCOP MENISCUS REPAIR MED/LAT 08/13/13 Lt knee PAST SURGICAL HISTORY OF 05/21/2007 CABG/ quadruple bypass and mitral valve repair PAST SURGICAL HISTORY OF 12/2010 3 stent placement PAST SURGICAL HISTORY OF right elbow x2 THYROID RIGHT FINE NEEDLE ASPIRATION 12/18/07 U/S FNA right thyroid lobe THYROIDECTOMY TOTAL/COMPLETE 03-02-08 FAMILY HISTORY Problem Relation Age of Onset None Mother [address] AGE 67 Diabetes Father Hypertension Brother Diabetes Brother other (malignant hyp) Paternal Aunt other (malignant hyperthermia) Other 1st cousin Social History Tobacco Use Smoking status: Former Packs/day: 0.50 Years: 10.00 Additional pack years: 0.00 Total pack years: 5.00 Types: Cigarettes Quit date: 09/26/1973 Years since quittin.1 Smokeless tobacco: Former Types: Chew Quit date: 01/23/2007 Vaping Use Vaping Use: Never used Substance Use Topics Alcohol use: Yes Comment: Rarely Drug use: No ALLERGIES Allergen Reactions Inhaled Anesthetics* Mevacor [Lovastatin] Patient's tongue swelled Medications: Current Outpatient Medications Medication Sig Dispense Refill insulin glargine (LANTUS SOLOSTAR U-100 INSULIN) 100 unit/mL (3 mL) Inject 55 Units subcutaneously once daily as directed 5 Pen 3 insulin lispro (HUMALOG U-100 INSULIN) 100 unit/mL injection Take 22 units subcutaneously with dinner 1 Vial semaglutide (OZEMPIC) 0.25 mg or 0.5 mg(2 mg/1.5 mL) pen injector Inject 1 mg weekly every Thrusday 1 Each 5 levothyroxine (SYNTHROID) 25 mcg tablet Take 1 tablet by mouth once daily. Take on empty stomach. For thyroid. 30 tablet 2 metoprolol tartrate, short acting, (LOPRESSOR) 50 mg tablet Take 2 tablets in AM and 1.5 tablets in the evening 90 tablet 1 atorvastatin (LIPITOR) 80 mg tablet Take 0.5 tablets by mouth once daily. ID # [id number] 90 tablet 0 clopidogrel (PLAVIX) 75 mg tablet Take 1 tablet by mouth once daily. 90 tablet 0 furosemide (LASIX) 20 mg tablet Take 1 tablet by mouth twice daily. 180 tablet 0 famotidine (PEPCID) 10 mg tablet Take 1 tablet by mouth twice daily. (Patient taking differently: Take 20 mg by mouth two times a day.) 180 tablet 0 losartan (COZAAR) 100 mg tablet Take 1 tablet by mouth once daily. ID # [id number] 30 tablet 5 trospium (SANCTURA) 20 mg tablet Take 1 tablet by mouth twice daily. 60 tablet 1 levothyroxine (SYNTHROID) 200 mcg (more content not included)... Normal [facility] [id number] 10-28-2023 ECG01 Ventricular Rate : 8 9 BPM Atrial Rate : 89 BPM P-R Interval : 162 ms QRS Duration : 84 ms Q-T Interval : 392 ms QTC Calculation(Bazett) : 476 ms Calculated P [place] : 24 degrees Calculated R [place] : -1 degrees Calculated T [place] : 58 degrees NORMAL SINUS RHYTHM POSSIBLE INFERIOR MYOCARDIAL INFARCTION , AGE UNDETERMINED ABNORMAL ECG Confirmed by BLAIR LEON DO ([id number]) on 10/29/2023 8:11:11 AM NAME : KAILEEKIMBERLY PID : [id number] : 1945 Gender : Male Race : ORD : Procedure Date : Oct 28 2023 09:51:50 Edit Date : Oct 29 2023 08:11:14 Diagnosis: NORMAL SINUS RHYTHM POSSIBLE INFERIOR MYOCARDIAL INFARCTION , AGE UNDETERMINED ABNORMAL ECG Confirmed by BLAIR LEON DO ([id number]) on 10/29/2023 8:11:11 AM Test Reason : Location : 136 : [facility] Overread By : BLAIR LEON DO Edited By : BLAIR LEON DO Referred By : SRIRAM VALLES Acquired by : Kelsey shi [facility] No Panel Informationon 07-09 [facility] CNNURSEon 07-13-2020 [facility] Nurse Visit (COVAMD) KIMBERLY NAVA ([id number]) 1945 M Date Time Provider Department 07/13/20 ELOY DASH) PEDRO LUIS During your visit today, we recorded the following information about you: Allergies As of Date: 07/13/2020 Noted Allergy Reaction INHALED ANESTHETICS (HALOGEN BASE*05/28/2007 MEVACOR (LOVASTATIN) 04/11/2007 Comments: Patient's tongue swelled Date Reviewed: 04/22/2020 Reviewed by: Fariha Dennis Ma - Fully Assessed Order(s):marker.to SARS-COV-2 VACCINE 2D DOSE APPT [[id number]] Order #: [id number] Prescriptions as of 07/13/2020 Sig: LOSARTAN 100 MG TABLET Take 1 tablet by mouth once d* METOPROLOL TARTRATE 50 MG TAB* Take 1.5 tablets by mouth twi* TROSPIUM 20 MG TABLET Take 1 tablet by mouth twice * LEVOTHYROXINE 200 MCG TABLET Take one tablet daily. TAMSULOSIN 0.4 MG CAPSULE Take 2 capsules by mouth magdaleno* INSULIN GLARGINE (U-100) 100 * Inject 40 Units subcutaneousl* METFORMIN ER 1,000 MG 24 HR T* Take 1 tablet by mouth twice * NITROGLYCERIN 0.4 MG SUBLINGU* Dissolve 1 tablet under the t* AMLODIPINE 10 MG TABLET Take 1 tablet by mouth once d* MAGNESIUM OXIDE 420 MG TABLET Take one tablet by mouth once* ATORVASTATIN 80 MG TABLET Take 0.5 tablets by mouth onc* GLIPIZIDE 10 MG TABLET Take one tablet by mouth twic* PEN NEEDLE, DIABETIC 31 GAUGE* Use as directed with insulin * LORATADINE 10 MG TABLET Take 1 tablet by mouth once d* IMDUR 30 MG TABLET,EXTENDED R* Take 30 mg by mouth once magdaleno* CPAP CHIN STRAP with mask refit op* CPAP Please dispense a full face m* POTASSIUM CHLORIDE ER 10 MEQ * Take 1 tablet by mouth once d* FUROSEMIDE 20 MG TABLET Take 1 tablet by mouth twice * CPAP Pressure change: Bilevel PAP * SERTRALINE 50 MG TABLET Take 1 tablet by mouth once d* CARBIDOPA 25 MG-LEVODOPA 100 * Take 1 tablet by mouth at bed* FAMOTIDINE 10 MG TABLET Take 1 tablet by mouth twice * MULTIVITAMIN WITH IRON-MINERA* Take 1 tablet by mouth once d* CLOPIDOGREL 75 MG TABLET Take 1 tablet by mouth once d* ECOTRIN LOW STRENGTH 81 MG TA* Take one(1) tablet daily. 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] 07/28/2007 Embolism and thrombosis of unspecified site [I7*08/05/2007 10/28/2013 PLANTAR Fasciitis [M72.2] 09/03/2007 10/28/2013 HYPERTROPHIC SCAR///KELOID SCAR [L91.0] 10/06/2007 10/28/2013 Scar condition and fibrosis of skin [L90.5] 10/06/2007 10/28/2013 Sleep apnea [G47.30] 11/06/2007 04/16/2017 Coronary artery disease involving coronary bypa*11/06/2007 ABNORMAL FINDINGS- ORGANS [R93.89] 11/18/2007 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 Hypertensive heart disease with heart failure (*01/23/2008 Anemia, unspecified [D64.9] 01/23/2008 10/28/2013 Personal history of malignant neoplasm of thyro*03/16/2008 Benign paroxysmal positional vertigo [H81.10] 04/09/2008 10/28/2013 Postsurgical hypothyroidism [E89.0] 04/09/2008 Overweight [E66.3] 08/01/2009 Sciatica [M54.30] 09/12/2009 10/28/2013 Pain in joint, pelvic region and thigh [M25.559]09/15/2009 10/28/2013 Mild major depression (HCC) [F32.0] 06/21/2010 10/28/2013 History of mitral valve repair [Z98.890] 06/22/2010 Restless legs syndrome [G25.81] 08/09/2010 ASHD (arteriosclerotic heart disease) [I25.10] 09/01/2010 Achilles bursitis or tendinitis [M76.60] 10/05/2010 10/28/2013 Ingrowing nail [L60.0] 10/05/2010 10/28/2013 Urgency of urination [R39.15] 12/18/2010 10/28/2013 BPH (benign prostatic hyperplasia) [N40.0] 12/18/2010 Screening for other and unspecified genitourina*12/18/2010 07/23/2011 Angina pectoris (HCC) [I20.9] 12/22/2010 10/28/2013 S/P coronary artery stent placement [Z95.5] 11/19/2011 Presence of drug coated stent in LAD coronary a*11/19/2011 10/28/2013 Vitamin D deficiency [E55.9] 01/21/2012 Proteinuria [R80.9] 04/03/2013 Restless leg syndrome [G25.81] 05/22/2013 05/22/2013 Knee pain [M25.569] 05/22/2013 Tear of medial cartilage or meniscus of knee, c*07/07/2013 09/18/2013 Other tear of cartilage or meniscus of knee, cu*09/18/2013 09/18/2013 Hypomagnesemia [E83.42] 10/28/2013 Insomnia [G47.00] 10/28/2013 Pedal edema [R60.0] 01/11/2014 Hypothyroid [E03.9] 03/15/2014 03/15/2014 Depression [F32.9] 04/26/2014 ANABELL (obstructive sleep apnea) [G47.33] 03/14/2015 Rectal bleeding [K62.5] 03/24/2015 Tubular adenoma of colon [D12.6] 05/10/2015 Complex third degree hemorrhoid [K64.2] 05/10/2015 Obesity (BMI 30-39.9) [E66.9] Chronic diastolic heart failure (HCC) [I50.32] 02/09/2019 Essential hypertension [I10] 08/07/2019 Coronary artery disease [I25.10] S/P CABG x 4 [Z95.1] 11/10/2019 [facility] (AGCARDWST) ----KIMBERLY NAVA ([id number]) 1945 [facility] Time Provider Department08/20/17 1:30 PM JOVANY MORRISSEY AGCARDWST During your visit today, we recorded the following information about you: Pulse Blood pressure Weight 64/minute 138/78 111.9 kgJovany Morrissey MD 08/20/2017 2:30 PM SignedPERTINENT CARDIAC HISTORYASHD - CABGx4 2007, PCI 2010MR - MV repair 2007HTNHLHypomagnesemiaCHF - diastolicOSA - CPAPADHERENCE TO GUIDELINESACE-I or ARB for HF with prior LVEF<40 (NQF 0081) - metASA or Plavix for ASHD (NQF 0067) - metBeta ann for ASHD with prior CT or prior LVEF<40 (NQF 0070) - metBeta ann for HF with prior LVEF<40 (NQF 0083) - N/AACE-I or ARB for ASHD with DM or prior LVEF<40 (NQF 0066) - metStatin therapy for ASHD or FHL or DM - metBMI documented and plan if >25 (NQF 0421) - lifestyle recommendation formTobacco use screening and referral (NQF 0028) - lifestyle recommendation formRecommendation for whole food, plant based diet - lifestyle recommendation formCLINICAL IMPRESSION/PLAN:Kimberly Nava is doing well. His EKG is somewhat labile, but there is nolarge vessel disease. He's been advised to continue his current exercise anduse nitroglycerin as needed. I've encouraged him to try to get weight underbetter control.I will see him in 6 months or as needed. I've asked him to call if there is anincrease in chest pain.Written and verbal health teaching given to patient, patient verbalizesunderstanding and agrees with treatment plan.DIAGNOSIS FOR VISIT:ASHISTORY OF PRESENT ILLNESSKimberly Nava returns for follow-up of his coronary disease and valve disease.He has had improvement in exercise tolerance. He has used no nitroglycerin.He denies edema, syncope, palpitations, TIAs, amaurosis and claudication.ALLERGIES:ALLERG IESAllergen Reactions- Inhaled Anesthetics*- Mevacor [Lovastatin] Patient's tongue swelledCURRENT OUTPATIENT MEDICATIONS:insulin glargine (LANTUS SOLOSTAR U-100 INSULIN) 100 unit/mL (3 mL) inpn [id number] Units subcutaneously once daily as directedlevothyroxine (SYNTHROID) 125 mcg tablet Take 1.5 tablets by mouth daily beforebreakfast. Total daily dose is 187 mcg. Fax updated dose to [place] [id number] HFA (PROAIR HFA) 90 mcg/actuation inhaler Inhale 2 Puffs asinstructed every 4 hours as needed.metFORMIN ER (GLUCOPHAGE XR) 500 mg 24 hr tablet Take 2 tablets by mouth twicedaily.atorvastatin (LIPITOR) 80 mg tablet Take 0.5 tablets by mouth once daily. ID #[id number] (GLUCOTROL) 10 mg tablet Take one tablet by mouth twice daily 30minutes prior to mealsinsulin needles, DISPOSABLE, 31 gauge x 5/16 ndle Use as directed with insulinpen Dx: E11.21 DM: yes insulin: yesMagnesium Oxide 420 mg tab Take one tablet by mouth once dailyloratadine (CLARITIN) 10 mg tablet Take 1 tablet by mouth once daily.metoprolol tartrate, short acting, (LOPRESSOR) 50 mg tablet Take 1 tablet bymouth twice daily.isosorbide mononitrate ER (IMDUR) 30 mg 24 hr tablet Take 1 tablet by mouthonce daily.losartan (COZAAR) 100 mg tablet Take 1 tablet by mouth once daily. ID # [id number] CHIN STRAP with mask refit optimization, USED WITH CPAP DEVICECPAP Please dispense a full face mask for PAP therapy. He liked medium AmaraView full face mask during titration study. Dx OSApotassium chloride ER (K-DUR, KLOR-CON) 10 mEq tablet Take 1 tablet by mouthonce daily.furosemide (LASIX) 20 mg tablet Take 1 tablet by mouth twice daily.CPAP Pressure change: Bilevel PAP 19/15 cmH2O. Please fax 30 day compliancedownload to [phone]. Dx: ANABELL, treatment emergent CSAsertraline (ZOLOFT) 50 mg tablet Take 1 tablet by mouth once daily.tamsulosin ER (FLOMAX) 0.4 mg cp24 Take 1 capsule by mouth daily at bedtime.carbidopa-levodopa (SINEMET) 25-100 mg per tablet Take 1 tablet by mouth atbedtime as needed. ID # [id number] sublingual (NITROSTAT) 0.4 mg SL tablet Dissolve 1 tablet underthe tongue as needed. FOR CHEST PAIN. IF NO RELIEF CALL 911famotidine 10 mg tablet Take 1 tablet by mouth twice daily.Multivitamin with Iron-Mineral (UNICOMPLEX-M) tab Take 1 tablet by mouth oncedaily.clopidogrel 75 mg tablet Take 1 tablet by mouth once daily.aspirin(ECOTRIN LOW STRENGTH 81 MG TAB) Take one(1) tablet daily.PHYSICAL EXAMINATION:VITAL SIGNS: BP 138/78 Pulse 64 Wt 246 lb 12.8 oz (111.9kg)Chest: Clear to percussion and auscultation. Trachea is midline. Air entry isequal. Cardiac: Regular rhythm. S1 and S2 are normal. PMI is nondisplaced.There is a soft systolic ejection murmur without radiation. Carotids arebrisk without bruits. JVP is less than 10 cm. Abdomen: Soft and nontender.Obesity limits examination. There are no pulsatile masses or bruits. No liverenlargement. Bowel sounds are active. Extremities: Trace edema. Pulses areintact and symmetrical.Recent labs were reviewed. Renal function is normal. LDL is 46. TSH was normal.Recent stress test shows no evidence of ischemia. Overall ejection fraction wasnormal.Electronically Signed:Jodi Hernandes2017 1:50 [facility]: Amy Guo MD 08/20/2017 1:50 PM SignedLIFESTYLE CHANGEA healthy lifestyle is the most important component of your overall treatmentplan. Please give serious thought to the following areas and commit to makinglong term changes.EAT A WHOLE FOOD, PLANT BASED DIETThe nutrition your body gets is more important than the medicine you take.What matters most is the overall way you eat. We encourage you to minimize theuse of animal products (which include dairy and all meats except fatty fish)and use whole, unprocessed plant foods to provide your protein, vitamins andother nutrients. We have a lot of information to share with you on this topic.This is not a diet. It is a way of life that you will keep with you.EXERCISE REGULARLYIt is not important to spend hours in the gym, lifting weights and perspiringheavily. A total of 2-3 hours per week of aerobic (causing you to bemoderately short of breath) exercise is sufficient to improve your health.Talk to us before you begin a new exercise program, if you have heart diseaseor experience shortness of breath or chest pain.REDUCE STRESSChronic emotional and physical stress leads to disease. Ways of reducingstress include meditation, visualization, prayer, yoga and other forms ofrelaxation therapy. Consistency is the stoner. Find a technique that works foryou and do it every day.CULTIVATE RELATIONSHIPSLoneliness and isolation have a major negative impact on health. Seek outothers who can love, care for and nurture you. Avoid hurtful relationships.MAINTAIN IDEAL BODY WEIGHTThe best way to do this is to do all the things above. Our bodies naturallyfind the right weight if we keep moving and feed ourselves the right food. Ifyour BMI is greater than 25, we strongly recommend a referral to a weightmanagement program. Please speak to us or your family physician aboutavailable programs.AVOID NICOTINE IN ALL FORMSThis includes all tobacco products, whether chewed, smoked, vaped, or rubbed onthe skin. Smoking cessation programs, which can make use of tobaccosubstitutes, medications to suppress cravings and behavior management, areavailable. Please contact your family physician about programs in your area.Referring Provider: JOVANY MORRISSEY [[id number]]Allergies As of Date: 08/20/2017 Noted Allergy ReactionINHALED ANESTHETICS (HALOGEN BASE*05/28/2007MEVACOR (LOVASTATIN) 04/11/2007 Comments: Patient's tongue swelledDate Reviewed: 08/20/2017Reviewed by: Jasmin Wright) STEPHON Olivier - Fully AssessedReason for Visit: Established Patient [175]Visit Diagnoses:ASHD (arteriosclerotic heart disease) [I25.10] Essential hypertension [I10]Prescriptions as of 08/20/2017 Sig: INSULIN GLARGINE (U-100) 100 * Inject 40 Units subcutaneousl* LEVOTHYROXINE 125 MCG TABLET Take 1.5 tablets by mouth norris* ALBUTEROL SULFATE HFA 90 MCG/* Inhale 2 Puffs as instructed * METFORMIN ER 500 MG TABLET,EX* Take 2 tablets by mouth twice* ATORVASTATIN 80 MG TABLET Take 0.5 tablets by mouth onc* GLIPIZIDE 10 MG TABLET Take one tablet by mouth twic* PEN NEEDLE, DIABETIC 31 GAUGE* Use as directed with insulin * MAGNESIUM OXIDE 420 MG TABLET Take one tablet by mouth once* LORATADINE 10 MG TABLET Take 1 tablet by mouth once d* METOPROLOL TARTRATE 50 MG TAB* Take 1 tablet by mouth twice * ISOSORBIDE MONONITRATE ER 30 * Take 1 tablet by mouth once d* LOSARTAN 100 MG TABLET Take 1 tablet by mouth once d* CPAP CHIN STRAP with mask refit op* CPAP Please dispense a full face m* POTASSIUM CHLORIDE ER 10 MEQ * Take 1 tablet by mouth once d* FUROSEMIDE 20 MG TABLET Take 1 tablet by mouth twice * CPAP Pressure change: Bilevel PAP * SERTRALINE 50 MG TABLET Take 1 tablet by mouth once d* TAMSULOSIN 0.4 MG CAPSULE Take 1 capsule by mouth daily* CARBIDOPA 25 MG-LEVODOPA 100 * Take 1 tablet by mouth at bed* NITROGLYCERIN 0.4 MG SUBLINGU* Dissolve 1 tablet under the t* FAMOTIDINE 10 MG TABLET Take 1 tablet by mouth twice * MULTIVITAMIN WITH IRON-MINERA* Take 1 tablet by mouth once d* CLOPIDOGREL 75 MG TABLET Take 1 tablet by mouth once d* ECOTRIN LOW STRENGTH 81 MG TA* Take one(1) tablet daily.Problem List As Of Date 08/20/2017 Noted Resolved Otalgia, unspecified [H92.09] INVALID FOR*10/28/2013 ALLERGIC RHINITIS NOS [J30.9] INVALID FOR* Hyperlipidemia, mixed [E78.2] INVALID FOR* More... Esophageal reflux [K21.9] INVALID FOR* More... 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 PLANTAR Fasciitis [M72.2] INVALID FOR*10/28/2013 HYPERTROPHIC SCAR///KELOID SCAR [L91.0] INVALID FOR*10/28/2013 Scar condition and fibrosis of skin [L90.5] INVALID FOR*10/28/2013 Sleep apnea [G47.30] INVALID FOR*04/16/2017 More... Atherosclerosis of coronary artery bypass graft*INVALID FOR* More... ABNORMAL FINDINGS- ORGANS [R93.8] INVALID FOR* More... 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 Essential hypertension [I10] INVALID FOR* More... 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 Overweight [E66.3] INVALID FOR* Sciatica [M54.30] INVALID FOR*10/28/2013 Pain in joint, pelvic region and thigh [M25.559]INVALID FOR*10/28/2013 Mild major depression (HCC) [F32.0] INVALID FOR*10/28/2013 More... S/P MVR (mitral valve repair) [Z98.890] INVALID FOR* Restless legs syndrome [G25.81] INVALID FOR* More... ASHD (arteriosclerotic heart disease) [I25.10] INVALID FOR* Achilles bursitis or tendinitis [M76.60] INVALID FOR*10/28/2013 Ingrowing nail [L60.0] INVALID FOR*10/28/2013 Urgency of urination [R39.15] INVALID FOR*10/28/2013 BPH (benign prostatic hyperplasia) [N40.0] INVALID FOR* Screening for other and unspecified genitourina*INVALID FOR*07/23/2011 Angina pectoris (HCC) [I20.9] INVALID FOR*10/28/2013 S/P coronary artery stent placement [Z95.5] INVALID FOR* More... Presence of drug coated stent in LAD coronary a*INVALID FOR*10/28/2013 Vitamin D deficiency [E55.9] INVALID FOR* More... Proteinuria [R80.9] INVALID FOR* More... Restless leg syndrome [G25.81] INVALID FOR*05/22/2013 Knee pain [M25.569] INVALID FOR* More... Tear of medial cartilage or meniscus of knee, c*INVALID FOR*09/18/2013 Other tear of cartilage or meniscus of knee, cu*INVALID FOR*09/18/2013 Hypomagnesemia [E83.42] INVALID FOR* More... Insomnia [G47.00] INVALID FOR* More... Pedal edema [R60.0] INVALID FOR* More... Hypothyroid [E03.9] INVALID FOR*03/15/2014 Depression [F32.9] INVALID FOR* More... ANABELL (obstructive sleep apnea) [G47.33] INVALID FOR* More... Rectal bleeding [K62.5] INVALID FOR* Tubular adenoma of colon [D12.6] INVALID FOR* Complex third degree hemorrhoid [K64.2] INVALID FOR* Obesity (BMI 30-39.9) [E66.9] Other instructions from your clinician: LIFESTYLE CHANGE A healthy lifestyle is the most important component of your overall treatment plan. Please give serious thought to the following areas and commit to making intermodal dispatcher changes. EAT A WHOLE FOOD, PLANT BASED DIET The nutrition your body gets is more important than the medicine you take. What matters most is the overall way you eat. We encourage you to minimize the use of animal products (which include dairy and all meats except fatty fish) and use whole, unprocessed plant foods to provide your protein, vitamins and other nutrients. We have a lot of information to share with you on this topic. This is not a diet. It is a way of life that you will keep with you. EXERCISE REGULARLY It is not important to spend hours in the gym, lifting weights and perspiring heavily. A total of 2-3 hours per week of aerobic (causing you to be moderately short of breath) exercise is sufficient to improve your health. Talk to us before you begin a new exercise program, if you have heart disease or experience shortness of breath or chest pain. REDUCE STRESS Chronic emotional and physical stress leads to disease. Ways of reducing stress include meditation, visualization, prayer, yoga and other forms of relaxation therapy. Consistency is the stoner. Find a technique that works for you and do it every day. CULTIVATE RELATIONSHIPS Loneliness and isolation have a major negative impact on health. Seek out others who can love, care for and nurture you. Avoid hurtful relationships. MAINTAIN IDEAL BODY WEIGHT The best way to do this is to do all the things above. Our bodies naturally find the right weight if we keep moving and feed ourselves the right food. If your BMI is greater than 25, we strongly recommend a referral to a weight management program. Please speak to us or your family physician about available programs. AVOID NICOTINE IN ALL FORMS This includes all tobacco products, whether chewed, smoked, vaped, or rubbed on the skin. Smoking cessation programs, which can make use of tobacco substitutes, medications to suppress cravings and behavior management, are available. Please contact your family physician about programs in your area. Status:Closed by JOVANY MORRISSEY MD on 08/20/17 [facility] PROGRESSon 08-20-2017 PROGRESS HNO ID: [id number] thor: Jovany Sin: (none)Author Type: PhysicianType: Progress NotesFiled: 08/20/2017 2:30 PMNote Text:PERTINENT CARDIAC HISTORYASHD - CABGx4 2007, PCI 2011MR - MV repair 2008HTNHLHypomagnesemiaCHF - diastolicOSA - CPAPADHERENCE TO GUIDELINESACE-I or ARB for HF with prior LVEF<40 (NQF 0081) - metASA or Plavix for ASHD (NQF 0067) - metBeta ann for ASHD with prior CT or prior LVEF<40 (NQF 0070) - metBeta ann for HF with prior LVEF<40 (NQF 0083) - N/AACE-I or ARB for ASHD with DM or prior LVEF<40 (NQF 0066) - metStatin therapy for ASHD or FHL or DM - metBMI documented and plan if >25 (NQF 0421) - lifestyle recommendation formTobacco use screening and referral (NQF 0028) - lifestyle recommendationformRecommendat ion for whole food, plant based diet - lifestyle recommendationformCLINICAL IMPRESSION/PLAN:Kimberly Nava is doing well. His EKG is somewhat labile, but there is nolarge vessel disease. He's been advised to continue his current exerciseand use nitroglycerin as needed. I've encouraged him to try to get weightunder better control.I will see him in 6 months or as needed. I've asked him to call if thereis an increase in chest pain.Written and verbal health teaching given to patient, patient verbalizesunderstanding and agrees with treatment plan.DIAGNOSIS FOR VISIT:ASHISTORY OF PRESENT ILLNESSKimberly Nava returns for follow-up of his coronary disease and valvedisease.He has had improvement in exercise tolerance. He has used nonitroglycerin.He denies edema, syncope, palpitations, TIAs, amaurosis and claudication.ALLERGIES:ALLERG IESAllergen Reactions- Inhaled Anesthetics*- Mevacor [Lovastatin] Patient's tongue swelledCURRENT OUTPATIENT MEDICATIONS:insulin glargine (LANTUS SOLOSTAR U-100 INSULIN) 100 unit/mL (3 mL) inpnInject 40 Units subcutaneously once daily as directedlevothyroxine (SYNTHROID) 125 mcg tablet Take 1.5 tablets by mouth dailybefore breakfast. Total daily dose is 187 mcg. Fax updated dose to [facility] [phone] HFA (PROAIR HFA) 90 mcg/actuation inhaler Inhale 2 Puffs asinstructed every 4 hours as needed.metFORMIN ER (GLUCOPHAGE XR) 500 mg 24 hr tablet Take 2 tablets by mouthtwice daily.atorvastatin (LIPITOR) 80 mg tablet Take 0.5 tablets by mouth once daily.ID # [id number] (GLUCOTROL) 10 mg tablet Take one tablet by mouth twice daily 30minutes prior to mealsinsulin needles, DISPOSABLE, 31 gauge x 5/16 ndle Use as directed withinlin pen Dx: E11.21 DM: yes insulin: yesMagnesium Oxide 420 mg tab Take one tablet by mouth once dailyloratadine (CLARITIN) 10 mg tablet Take 1 tablet by mouth once daily.metoprolol tartrate, short acting, (LOPRESSOR) 50 mg tablet Take 1 tabletby mouth twice daily.isosorbide mononitrate ER (IMDUR) 30 mg 24 hr tablet Take 1 tablet bymouth once daily.losartan (COZAAR) 100 mg tablet Take 1 tablet by mouth once daily. ID #[id number] CHIN STRAP with mask refit optimization, USED WITH CPAP DEVICECPAP Please dispense a full face mask for PAP therapy. He liked mediumAmara View full face mask during titration study. Dx OSApotassium chloride ER (K-DUR, KLOR-CON) 10 mEq tablet Take 1 tablet bymouth once daily.furosemide (LASIX) 20 mg tablet Take 1 tablet by mouth twice daily.CPAP Pressure change: Bilevel PAP 19/15 cmH2O. Please fax 30 daycompliance download to [phone]. Dx: ANABELL, treatment emergent CSAsertraline (ZOLOFT) 50 mg tablet Take 1 tablet by mouth once daily.tamsulosin ER (FLOMAX) 0.4 mg cp24 Take 1 capsule by mouth daily atbedtime.carbidopa-levodopa (SINEMET) 25-100 mg per tablet Take 1 tablet by mouthat bedtime as needed. ID # [id number] sublingual (NITROSTAT) 0.4 mg SL tablet Dissolve 1 tabletunder the tongue as needed. FOR CHEST PAIN. IF NO RELIEF CALL 911famotidine 10 mg tablet Take 1 tablet by mouth twice daily.Multivitamin with Iron-Mineral (UNICOMPLEX-M) tab Take 1 tablet by mouthonce daily.clopidogrel 75 mg tablet Take 1 tablet by mouth once daily.aspirin(ECOTRIN LOW STRENGTH 81 MG TAB) Take one(1) tablet daily.PHYSICAL EXAMINATION:VITAL SIGNS: BP 138/78 Pulse 64 Wt 246 lb 12.8 oz (111.9kg)Chest: Clear to percussion and auscultation. Trachea is midline. Airentry is equal. Cardiac: Regular rhythm. S1 and S2 are normal. PMI isnondisplaced. There is a soft systolic ejection murmur without radiation. Carotids are brisk without bruits. JVP is less than 10 cm. Abdomen:Soft and nontender. Obesity limits examination. There are no pulsatilemasses or bruits. No liver enlargement. Bowel sounds are active.Extremities: Trace edema. Pulses are intact and symmetrical.Recent labs were reviewed. Renal function is normal. LDL is 46. TSH wasnormal.Recent stress test shows no evidence of ischemia. Overall ejectionfraction was normal.Electronically Signed:Jovany Morrissey, MDMa2017 1:50 [facility]: Nikia Adair MD [facility] CNOVon 02-20-2017 [facility] Office Visit (AGCARDWST) ----KIMBERLY NAVA ([id number]) 1945 [facility] Zjywroddhn74/15/17 11:30 AM JOVANY MORRISSEYWSIssac During your visit today, we recorded the following information about you: Pulse Blood pressure Weight Height 63/minute 134/72 111.4 kg 1.676 Katia Morrissey MD 02/20/2017 12:07 PM SignedPERTINENT CARDIAC HISTORYASHD - CABGx4 2007, PCI 2010MR - MV repair 2007HTNHLHypomagnesemiaCHF - diastolicOSA - CPAPADHERENCE TO GUIDELINESACE-I or ARB for HF with prior LVEFANDlt;40 (NQF 0081) - metASA or Plavix for ASHD (NQF 0067) - metBeta ann for ASHD with prior CT or prior LVEFANDlt;40 (NQF 0070) - metBeta ann for HF with prior LVEFANDlt;40 (NQF 0083) - N/AACE-I or ARB for ASHD with DM or prior LVEFANDlt;40 (NQF 0066) - metStatin therapy for ASHD or FHL or DM - metBMI documented and plan if ANDgt;25 (NQF 0421) - lifestyle recommendation formTobacco use screening and referral (NQF 0028) - lifestyle recommendation formRecommendation for whole food, plant based diet - lifestyle recommendation formCLINICAL IMPRESSION/PLAN:Kimberly Nava has atypical symptoms, but these are concerning in view of hisdiabetes. His shortness of breath is multifactorial, but his EKG changes arenew. I'm concerned about the possibility of silent ischemia.His last stress test was 5 years ago. We will update this with Lexiscan nuclearstress test to be performed in the near future.He's been advised to use nitroglycerin liberally for shortness of breath whichis unexplained or chest discomfort.Diastolic heart failure appears well compensated. Blood pressure iswell-controlled. There is no evidence of decompensation of his valvular heartdisease.I will tentatively see him in 6 months or as needed but will be in touch withhim after we see the results of his stress test. I have a low threshold toproceed with angiography.Written and verbal health teaching given to patient, patient verbalizesunderstanding and agrees with treatment plan.This note was generated using Backand voice recognition system, and there may besome incorrect words, spellings, and punctuation that were not noted inchecking the note before saving.DIAGNOSIS FOR VISIT:ASHDHypertensionCHFHIST ORY OF PRESENT ILLNESSKimberly Nava returns for follow-up of multiple cardiac issues, as noted.He reports being easily fatigued. He's had no chest discomfort and has used nonitroglycerin . His exercise tolerance has been unchanged. He has not been ableto lose weight as he becomes fatigued and short of breath with activity.He's had no edema, syncope, palpitations, TIAs, amaurosis or claudication.ALLERGIES:ALLERG IESAllergen Reactions- Albuterol Shortness of Breath- Inhaled Anesthetics*- Mevacor [Lovastatin] Patient's tongue swelledCURRENT OUTPATIENT MEDICATIONS:levothyroxine (LEVOXYL) 200 mcg tablet Take 1 tablet by mouth once daily. Takeon empty stomach. For thyroidclotrimazole-betametha sone (LOTRISONE) cream Apply 1 application to affectedarea once daily. TO AFFECTED AREA.insulin glargine (LANTUS SOLOSTAR) 100 unit/mL (3 mL) inpn Inject 34 Unitssubcutaneously once daily as directedatorvastatin (LIPITOR) 80 mg tablet Take 0.5 tablets by mouth once daily. ID #[id number] (GLUCOTROL) 10 mg tablet Take one tablet by mouth twice daily 30minutes prior to mealsinsulin needles, DISPOSABLE, 31 gauge x 5/16ANDquot; ndle Use as directed withinlin pen Dx: E11.21 DM: yes insulin: yesMagnesium Oxide 420 mg tab Take one tablet by mouth once dailyloratadine (CLARITIN) 10 mg tablet Take 1 tablet by mouth once daily.metoprolol tartrate, short acting, (LOPRESSOR) 50 mg tablet Take 1 tablet bymouth twice daily.isosorbide mononitrate ER (IMDUR) 30 mg 24 hr tablet Take 1 tablet by mouthonce daily.losartan (COZAAR) 100 mg tablet Take 1 tablet by mouth once daily. ID # [id number] CHIN STRAP with mask refit optimization, USED WITH CPAP DEVICECPAP Please dispense a full face mask for PAP therapy. He liked medium AmaraView full face mask during titration study. Dx OSApotassium chloride ER (K-DUR, KLOR-CON) 10 mEq tablet Take 1 tablet by mouthonce daily.furosemide (LASIX) 20 mg tablet Take 1 tablet by mouth twice daily.CPAP Pressure change: Bilevel PAP 19/15 cmH2O. Please fax 30 day compliancedownload to [phone]. Dx: ANABELL, treatment emergent CSACPAP Please dispense a chin strap for use with PAP therapy. Dx OSAsertraline (ZOLOFT) 50 mg tablet Take 1 tablet by mouth once daily.tamsulosin ER (FLOMAX) 0.4 mg cp24 Take 1 capsule by mouth daily at bedtime.metFORMIN (GLUCOPHAGE) 1,000 mg tablet Take 1 tablet by mouth twice daily withmeals. ID # [id number]-levodopa (SINEMET) 25-100 mg per tablet Take 1 tablet by mouth atbedtime as needed. ID # [id number] sublingual (NITROSTAT) 0.4 mg SL tablet Dissolve 1 tablet underthe tongue as needed. FOR CHEST PAIN. IF NO RELIEF CALL 911famotidine 10 mg tablet Take 1 tablet by mouth twice daily.Multivitamin with Iron-Mineral (UNICOMPLEX-M) tab Take 1 tablet by mouth oncedaily.clopidogrel 75 mg tablet Take 1 tablet by mouth once daily.aspirin(ECOTRIN LOW STRENGTH 81 MG TAB) Take one(1) tablet daily.PAST MEDICAL HISTORYDiagnosis Date- Acute, but ill-defined, cerebrovascular disease- Cancer (HCC)- Chronic rhinitis- Congestive heart failure (HCC)- Coronary artery disease- Depression- Diabetes (HCC)- DVT (deep venous thrombosis) (HCC) 2007- Esophageal reflux- Generalized osteoarthrosis, unspecified site- Hemorrhage of gastrointestinal tract, unspecified- Hypothyroidism- Nonspecific (abnormal) findings on radiological and other examination ofgenitourinary organs 11/18/2007 He has R pelvic Kidney - congenital- Obstructive sleep apnea- PMH - PAST MEDICAL HISTORY OF 2- CT with quad. bypass and valve repair- DVT after- Pure hypercholesterolemia- Restless leg syndrome- Rheum heart dis NEC/NOS CHILD Rheumatic fever- Sciatica- Sensorineural hearing loss, unspecified Sensorineural hearing loss- Stable angina (HCC)- Tobacco use disorder- Unspecified essential hypertension- Unspecified tinnitus TinnitusPAST SURGICAL HISTORYProcedure Laterality Date- COLONOSCOP W/ OR W/O BRSH SPEC 09/28/05- COLONOSCOP W/ OR W/O BRSH SPEC 04-12-15- HEMORRHOIDECTOMY,INT/EXT,COMP LX 04-20-15 Dr. Mc- KNEE ARTHROSCOP MENISCUS REPAIR MED/LAT 08/13/13 Lt knee- PAST SURGICAL HISTORY OF 05-21-07 quadruple bypass and valve repair- PAST SURGICAL HISTORY OF 12/2010 3 stent placement- PAST SURGICAL HISTORY OF right elbow x2- THYROID RIGHT FINE NEEDLE ASPIRATION 12/18/07 U/S FNA right thyroid lobe- THYROIDECTOMY [id number] HISTORYProblem Relation Age of Onset- Heart Father CT AGE 67- None Mother 98- Hypertension Brother- Diabetes Brother- Diabetes Father- malignant hyp [Other] [OTHER] Paternal Aunt- malignant hyperthermia [Other] [OTHER] Other 1st cousinSocial History Marital status: Spouse name: Years of education: Number of children: 2Occupational HistoryOccupation Employer [employer]; [employer]* retiredSocial History Main Topics Smoking status: Former Smoker Packs/day: 0.50 Years: 10.00 Quit date: 09/26/1973 Smokeless status: Former User Types: Chew Quit date: 01/23/2007 Alcohol use: No Comment: Rarely Drug use: No Sexual activity: Yes Partners with: FemaleOther Topics ConcernMilitary Service Yes Comment:4 yrsBlood Transfusions YesCaffeine Concern NoOccupational Exposure NoHobby Hazards NoSleep Concern NoStress Concern NoWeight Concern NoSpecial Diet NoBack Care NoExercise NoBike Helmet NoSeat Belt YesSelf-Exams NoSocial History Narrative 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 Cardiac: As noted above. GI: No melena.: No dysuria. Musculoskeletal: No myalgias.PHYSICAL EXAMINATION: S/he is alert and in no distress.VITAL SIGNS: BP 134/72 Pulse 63 Ht 5' 6ANDquot; (1.68m) Wt 245 lb 9.6 oz(111.4kg) BMI 39.66 kg/(m2).SHEENT: Skin is warm and dry. No xanthelasmas appreciated. Pharynx isbenign. There is no oral cyanosis. Neck: supple. No adenopathy or thyroidenlargement. Chest: Clear to percussion and auscultation. Trachea is midline. Air entry is equal. There is no chest wall tenderness. Cardiac: Regularrhythm. S1 and S2 are normal. PMI is nondisplaced. There is a soft systolicejection murmur without radiation. No click is heard. Carotids are briskwithout bruits. JVP is less than 10 cm. Abdomen: Soft and nontender. Thereare no pulsatile masses or bruits. No liver enlargement. Bowel sounds areactive. Extremities: Trace edema. Pulses are intact and symmetrical. Noclubbing or cyanosis. No femoral bruits. Neurologic: Grossly normal motor andsensory. S/he is alert and oriented x4.EKG shows sinus rhythm. There is lateral T wave inversion, which is new since11/10/15. No ST deviation is noted.Recent labs were reviewed. Renal function is normal. LDL was 46. TSH andmagnesium are normal.Electronically Signed:Jovany Morrissey MDFebruary 20, 2017 11:51 [facility]:Amy ANTONIO MD 02/20/2017 11:57 AM SignedLIFESTYLE CHANGEA healthy lifestyle is the most important component of your overall treatmentplan. Please give serious thought to the following areas and commit to makinglong term changes.EAT A WHOLE FOOD, PLANT BASED DIETThe nutrition your body gets is more important than the medicine you take.What matters most is the overall way you eat. We encourage you to minimize theuse of animal products (which include dairy and all meats except fatty fish)and use whole, unprocessed plant foods to provide your protein, vitamins andother nutrients. We have a lot of information to share with you on this topic. We also hold Shared Medical Appointments, where you can come visit with in the company of other patients and spend over an hour talking aboutthe challenges of changing the way you eat. This is not a ANDquot;dietANDquot;.It is a way of life that you will keep with you.EXERCISE REGULARLYIt is not important to spend hours in the gym, lifting weights and perspiringheavily. A total of 2-3 hours per week of aerobic (causing you to bemoderately short of breath) exercise is sufficient to improve your health.Talk to us before you begin a new exercise program, if you have heart diseaseor experience shortness of breath or chest pain.REDUCE STRESSChronic emotional and physical stress leads to disease. Ways of reducingstress include meditation, visualization, prayer, yoga and other forms ofrelaxation therapy. Consistency is the stoner. Find a technique that works foryou and do it every day.CULTIVATE RELATIONSHIPSLoneliness and isolation have a major negative impact on health. Seek outothers who can love, care for and nurture you. Avoid hurtful relationships.MAINTAIN IDEAL BODY WEIGHTThe best way to do this is to do all the things above. Our bodies naturallyfind the right weight if we keep moving and feed ourselves the right food. Ifyour BMI is greater than 25, we strongly recommend a referral to a weightmanagement program. Please speak to us or your family physician aboutavailable programs.AVOID NICOTINE IN ALL FORMSThis includes all tobacco products, whether chewed, smoked, vaped, or rubbed onthe skin. Smoking cessation programs, which can make use of tobaccosubstitutes, medications to suppress cravings and behavior management, areavailable. Please contact your family physician about programs in your area.Referring Provider: JOVANY MORRISSEY [[id number]]Allergies As of Date: 02/20/2017 Noted Allergy ReactionALBUTEROL 05/06/2007 12 - Shortness of BreathINHALED ANESTHETICS (HALOGEN BASE*05/28/2007MEVACOR (LOVASTATIN) 04/11/2007 Comments: Patient's tongue swelledDate Reviewed: 02/20/2017Reviewed by: Edwar Wright) STEPHON Fink - Fully AssessedReason for Visit: Follow Up [171] Cmt: 8 monthPrimary Visit Diagnosis:Hypertension, essential [I10] Other Visit Diagnoses:ASHD (arteriosclerotic heart disease) [I25.10] Chronic diastolic CHF (congestive heart failure) ([facility]) [I50.32]Order(s):ECG B/O W INTERP (MED OFFICE) [ECG06] Order #: [id number] NM CARDIAC PERF STRESS/PHARM [[id number]] Order #: [id number] FUTURE regadenoson (LEXISCAN) 0.4 mg/5 mL syrgInject 5 mL intravenously one time only for 1 dose. Give IV push over 10 seconds and follow with 5 ml of normal salineDisp: 5 mLRfl: 0 IV START - SPECIFY [[id number]] Order #: [id number]: 1 IV DISCONTINUE [[id number]] Order #: [id number]: 1Prescriptions as of 02/20/2017 Sig: LEVOTHYROXINE 200 MCG TABLET Take 1 tablet by mouth once d* CLOTRIMAZOLE-BETAMETHASONE 1 * Apply 1 application to affect* INSULIN GLARGINE 100 UNIT/ML * Inject 34 Units subcutaneousl* ATORVASTATIN 80 MG TABLET Take 0.5 tablets by mouth onc* GLIPIZIDE 10 MG TABLET Take one tablet by mouth twic* PEN NEEDLE, DIABETIC 31 GAUGE* Use as directed with insulin * MAGNESIUM OXIDE 420 MG TABLET Take one tablet by mouth once* LORATADINE 10 MG TABLET Take 1 tablet by mouth once d* METOPROLOL TARTRATE 50 MG TAB* Take 1 tablet by mouth twice * ISOSORBIDE MONONITRATE ER 30 * Take 1 tablet by mouth once d* LOSARTAN 100 MG TABLET Take 1 tablet by mouth once d* CPAP CHIN STRAP with mask refit op* CPAP Please dispense a full face m* POTASSIUM CHLORIDE ER 10 MEQ * Take 1 tablet by mouth once d* FUROSEMIDE 20 MG TABLET Take 1 tablet by mouth twice * CPAP Pressure change: Bilevel PAP * CPAP Please dispense a chin strap * SERTRALINE 50 MG TABLET Take 1 tablet by mouth once d* TAMSULOSIN 0.4 MG CAPSULE Take 1 capsule by mouth daily* METFORMIN 1,000 MG TABLET Take 1 tablet by mouth twice * CARBIDOPA 25 MG-LEVODOPA 100 * Take 1 tablet by mouth at bed* NITROGLYCERIN 0.4 MG SUBLINGU* Dissolve 1 tablet under the t* FAMOTIDINE 10 MG TABLET Take 1 tablet by mouth twice * MULTIVITAMIN WITH IRON-MINERA* Take 1 tablet by mouth once d* CLOPIDOGREL 75 MG TABLET Take 1 tablet by mouth once d* ECOTRIN LOW STRENGTH 81 MG TA* Take one(1) tablet daily. REGADENOSON 0.4 MG/5 ML INTRA* Inject 5 mL intravenously one*Problem List As Of Date 02/20/2017 Noted Resolved Otalgia, unspecified [H92.09] INVALID FOR*10/28/2013 ALLERGIC RHINITIS NOS [J30.9] INVALID FOR* Other and unspecified hyperlipidemia [E78.5] INVALID FOR* More... Esophageal reflux [K21.9] INVALID FOR* More... 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 PLANTAR Fasciitis [M72.2] INVALID FOR*10/28/2013 HYPERTROPHIC SCAR///KELOID SCAR [L91.0] INVALID FOR*10/28/2013 Scar condition and fibrosis of skin [L90.5] INVALID FOR*10/28/2013 Sleep apnea [G47.30] INVALID FOR* More... Atherosclerosis of coronary artery bypass graft*INVALID FOR* More... ABNORMAL FINDINGS- ORGANS [R93.8] INVALID FOR* More... 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 Essential hypertension [I10] INVALID FOR* More... 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 Overweight [E66.3] INVALID FOR* Sciatica [M54.30] INVALID FOR*10/28/2013 Pain in joint, pelvic region and thigh [M25.559]INVALID FOR*10/28/2013 Mild major depression (HCC) [F32.0] INVALID FOR*10/28/2013 More... S/P MVR (mitral valve repair) [Z98.890] INVALID FOR* Restless legs syndrome [G25.81] INVALID FOR* More... ASHD (arteriosclerotic heart disease) [I25.10] INVALID FOR* Achilles bursitis or tendinitis [M76.60] INVALID FOR*10/28/2013 Ingrowing nail [L60.0] INVALID FOR*10/28/2013 Urgency of urination [R39.15] INVALID FOR*10/28/2013 BPH (benign prostatic hyperplasia) [N40.0] INVALID FOR* Screening for other and unspecified genitourina*INVALID FOR*07/23/2011 Angina pectoris (HCC) [I20.9] INVALID FOR*10/28/2013 S/P coronary artery stent placement [Z95.5] INVALID FOR* More... Presence of drug coated stent in LAD coronary a*INVALID FOR*10/28/2013 Vitamin D deficiency [E55.9] INVALID FOR* More... Proteinuria [R80.9] INVALID FOR* More... Restless leg syndrome [G25.81] INVALID FOR*05/22/2013 Knee pain [M25.569] INVALID FOR* More... Tear of medial cartilage or meniscus of knee, c*INVALID FOR*09/18/2013 Other tear of cartilage or meniscus of knee, cu*INVALID FOR*09/18/2013 Hypomagnesemia [E83.42] INVALID FOR* More... Insomnia [G47.00] INVALID FOR* More... Pedal edema [R60.0] INVALID FOR* More... Hypothyroid [E03.9] INVALID FOR*03/15/2014 Depression [F32.9] INVALID FOR* More... ANABELL (obstructive sleep apnea) [G47.33] INVALID FOR* More... Rectal bleeding [K62.5] INVALID FOR* Tubular adenoma of colon [D12.6] INVALID FOR* Complex third degree hemorrhoid [K64.2] INVALID FOR* Other instructions from your clinician: LIFESTYLE CHANGE A healthy lifestyle is the most important component of your overall treatment plan. Please give serious thought to the following areas and commit to making senior care changes. EAT A WHOLE FOOD, PLANT BASED DIET The nutrition your body gets is more important than the medicine you take. What matters most is the overall way you eat. We encourage you to minimize the use of animal products (which include dairy and all meats except fatty fish) and use whole, unprocessed plant foods to provide your protein, vitamins and other nutrients. We have a lot of information to share with you on this topic. We also hold Shared Medical Appointments, where you can come visit with Dr. Morrissey in the company of other patients and spend over an hour talking about the challenges of changing the way you eat. This is not a diet. It is a way of life that you will keep with you. EXERCISE REGULARLY It is not important to spend hours in the gym, lifting weights and perspiring heavily. A total of 2-3 hours per week of aerobic (causing you to be moderately short of breath) exercise is sufficient to improve your health. Talk to us before you begin a new exercise program, if you have heart disease or experience shortness of breath or chest pain. REDUCE STRESS Chronic emotional and physical stress leads to disease. Ways of reducing stress include meditation, visualization, prayer, yoga and other forms of relaxation therapy. Consistency is the stoner. Find a technique that works for you and do it every day. CULTIVATE RELATIONSHIPS Loneliness and isolation have a major negative impact on health. Seek out others who can love, care for and nurture you. Avoid hurtful relationships. MAINTAIN IDEAL BODY WEIGHT The best way to do this is to do all the things above. Our bodies naturally find the right weight if we keep moving and feed ourselves the right food. If your BMI is greater than 25, we strongly recommend a referral to a weight management program. Please speak to us or your family physician about available programs. AVOID NICOTINE IN ALL FORMS This includes all tobacco products, whether chewed, smoked, vaped, or rubbed on the skin. Smoking cessation programs, which can make use of tobacco substitutes, medications to suppress cravings and behavior management, are available. Please contact your family physician about programs in your area.Prescriptions ordered this encounter Disp Refills Start End REGADENOSON 0.4 MG/5 ML INTRAVENOUS * 5 mL 0 02/20/2017 02/20/2017 Class: In Office Route: INTRAVENOUS Sig: Inject 5 mL intravenously one time only for 1 dose. Give IV push over 10 seconds and follow with 5 ml of normal salineClassic SmartForms filed during this visit:Extended VitalsEncounter Number: [id number] Status:Closed by JOVANY MORRISSEY MD on 02/20/17 [facility] PROGRESSon 02-20-2017 PROGRESS HNO ID: [id number] thor: Jovany Sin: (none)Author Type: PhysicianType: Progress NotesFiled: 02/20/2017 12:07 PMNote Text:PERTINENT CARDIAC HISTORYASHD - CABGx4 2007, PCI 2011MR - MV repair 2007HTNHLHypomagnesemiaCHF - diastolicOSA - CPAPADHERENCE TO GUIDELINESACE-I or ARB for HF with prior LVEF<40 (NQF 0081) - metASA or Plavix for ASHD (NQF 0067) - metBeta ann for ASHD with prior CT or prior LVEF<40 (NQF 0070) - metBeta ann for HF with prior LVEF<40 (NQF 0083) - N/AACE-I or ARB for ASHD with DM or prior LVEF<40 (NQF 0066) - metStatin therapy for ASHD or FHL or DM - metBMI documented and plan if >25 (NQF 0421) - lifestyle recommendation formTobacco use screening and referral (NQF 0028) - lifestyle recommendationformRecommendat ion for whole food, plant based diet - lifestyle recommendationformCLINICAL IMPRESSION/PLAN:Kimberly Nava has atypical symptoms, but these are concerning in view ofhis diabetes. His shortness of breath is multifactorial, but his EKGchanges are new. I'm concerned about the possibility of silent ischemia.His last stress test was 5 years ago. We will update this with Lexiscannuclear stress test to be performed in the near future.He's been advised to use nitroglycerin liberally for shortness of breathwhich is unexplained or chest discomfort.Diastolic heart failure appears well compensated. Blood pressure iswell-controlled. There is no evidence of decompensation of his valvularheart disease.I will tentatively see him in 6 months or as needed but will be in touchwith him after we see the results of his stress test. I have a lowthreshold to proceed with angiography.Written and verbal health teaching given to patient, patient verbalizesunderstanding and agrees with treatment plan.This note was generated using Backand voice recognition system, and theremay be some incorrect words, spellings, and punctuation that were notnoted in checking the note before saving.DIAGNOSIS FOR VISIT:ASHDHypertensionCHFHIST ORY OF PRESENT ILLNESSKimberly Nava returns for follow-up of multiple cardiac issues, asnoted.He reports being easily fatigued. He's had no chest discomfort and hasused no nitroglycerin . His exercise tolerance has been unchanged. He hasnot been able to lose weight as he becomes fatigued and short of breathwith activity.He's had no edema, syncope, palpitations, TIAs, amaurosis or claudication.ALLERGIES:ALLERG IESAllergen Reactions- Albuterol Shortness of Breath- Inhaled Anesthetics*- Mevacor [Lovastatin] Patient's tongue swelledCURRENT OUTPATIENT MEDICATIONS:levothyroxine (LEVOXYL) 200 mcg tablet Take 1 tablet by mouth once daily.Take on empty stomach. For thyroidclotrimazole-betametha sone (LOTRISONE) cream Apply 1 application toaffected area once daily. TO AFFECTED AREA.insulin glargine (LANTUS SOLOSTAR) 100 unit/mL (3 mL) inpn Inject 34 Unitssubcutaneously once daily as directedatorvastatin (LIPITOR) 80 mg tablet Take 0.5 tablets by mouth once daily.ID # [id number] (GLUCOTROL) 10 mg tablet Take one tablet by mouth twice daily 30minutes prior to mealsinsulin needles, DISPOSABLE, 31 gauge x 5/16 ndle Use as directed withinlin pen Dx: E11.21 DM: yes insulin: yesMagnesium Oxide 420 mg tab Take one tablet by mouth once dailyloratadine (CLARITIN) 10 mg tablet Take 1 tablet by mouth once daily.metoprolol tartrate, short acting, (LOPRESSOR) 50 mg tablet Take 1 tabletby mouth twice daily.isosorbide mononitrate ER (IMDUR) 30 mg 24 hr tablet Take 1 tablet bymouth once daily.losartan (COZAAR) 100 mg tablet Take 1 tablet by mouth once daily. ID #[id number] CHIN STRAP with mask refit optimization, USED WITH CPAP DEVICECPAP Please dispense a full face mask for PAP therapy. He liked mediumAmara View full face mask during titration study. Dx OSApotassium chloride ER (K-DUR, KLOR-CON) 10 mEq tablet Take 1 tablet bymouth once daily.furosemide (LASIX) 20 mg tablet Take 1 tablet by mouth twice daily.CPAP Pressure change: Bilevel PAP 19/15 cmH2O. Please fax 30 daycompliance download to [phone]. Dx: ANABELL, treatment emergent CSACPAP Please dispense a chin strap for use with PAP therapy. Dx OSAsertraline (ZOLOFT) 50 mg tablet Take 1 tablet by mouth once daily.tamsulosin ER (FLOMAX) 0.4 mg cp24 Take 1 capsule by mouth daily atbedtime.metFORMIN (GLUCOPHAGE) 1,000 mg tablet Take 1 tablet by mouth twice dailywith meals. ID # [id number]-levodopa (SINEMET) 25-100 mg per tablet Take 1 tablet by mouthat bedtime as needed. ID # [id number] sublingual (NITROSTAT) 0.4 mg SL tablet Dissolve 1 tabletunder the tongue as needed. FOR CHEST PAIN. IF NO RELIEF CALL 911famotidine 10 mg tablet Take 1 tablet by mouth twice daily.Multivitamin with Iron-Mineral (UNICOMPLEX-M) tab Take 1 tablet by mouthonce daily.clopidogrel 75 mg tablet Take 1 tablet by mouth once daily.aspirin(ECOTRIN LOW STRENGTH 81 MG TAB) Take one(1) tablet daily.PAST MEDICAL HISTORYDiagnosis Date- Acute, but ill-defined, cerebrovascular disease- Cancer (HCC)- Chronic rhinitis- Congestive heart failure (HCC)- Coronary artery disease- Depression- Diabetes (HCC)- DVT (deep venous thrombosis) (HCC) 2007- Esophageal reflux- Generalized osteoarthrosis, unspecified site- Hemorrhage of gastrointestinal tract, unspecified- Hypothyroidism- Nonspecific (abnormal) findings on radiological and other examination ofgenitourinary organs 11/18/2007 He has R pelvic Kidney - congenital- Obstructive sleep apnea- PMH - PAST MEDICAL HISTORY OF 05-21-07 CT with quad. 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 Mc- KNEE ARTHROSCOP MENISCUS REPAIR MED/LAT 08/13/13 Lt knee- PAST SURGICAL HISTORY OF 05-21-07 quadruple bypass and valve repair- PAST SURGICAL HISTORY OF 12/2010 3 stent placement- PAST SURGICAL HISTORY OF right elbow x2- THYROID RIGHT FINE NEEDLE ASPIRATION 12/18/07 U/S FNA right thyroid lobe- THYROIDECTOMY [id number] HISTORYProblem Relation Age of Onset- Heart Father CT AGE 67- None Mother 98- Hypertension Brother- Diabetes Brother- Diabetes Father- malignant hyp [Other] [OTHER] Paternal Aunt- malignant hyperthermia [Other] [OTHER] Other 1st cousinSocial History Marital status: Spouse name: Years of education: Number of children: 2Occupational HistoryOccupation Employer Comment[employer]* retiredSocial History Main Topics Smoking status: Former Smoker Packs/day: 0.50 Years: 10.00 Quit date: 09/26/1973 Smokeless status: Former User Types: Chew Quit date: 01/23/2007 Alcohol use: No Comment: Rarely Drug use: No Sexual activity: Yes Partners with: FemaleOther Topics ConcernMilitary Service Yes Comment:4 yrsBlood Transfusions YesCaffeine Concern NoOccupational Exposure NoHobby Hazards NoSleep Concern NoStress Concern NoWeight Concern NoSpecial Diet NoBack Care NoExercise NoBike Helmet NoSeat Belt YesSelf-Exams NoSocial History Narrative 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 Respiratory: No productive cough. Cardiac: As noted above. GI: Nomelena. : No dysuria. Musculoskeletal: No myalgias.PHYSICAL EXAMINATION: S/he is alert and in no distress.VITAL SIGNS: BP 134/72 Pulse 63 Ht 5' 6 (1.68m) Wt 245 lb 9.6 oz(111.4kg) BMI 39.66 kg/(m2).SHEENT: Skin is warm and dry. No xanthelasmas appreciated. Pharynx isbenign. There is no oral cyanosis. Neck: supple. No adenopathy orthyroid enlargement. Chest: Clear to percussion and auscultation.Trachea is midline. Air entry is equal. There is no chest walltenderness. Cardiac: Regular rhythm. S1 and S2 are normal. PMI isnondisplaced. There is a soft systolic ejection murmur without radiation. No click is heard. Carotids are brisk without bruits. JVP is less than10 cm. Abdomen: Soft and nontender. There are no pulsatile masses orbruits. No liver enlargement. Bowel sounds are active. Extremities:Trace edema. Pulses are intact and symmetrical. No clubbing or cyanosis. No femoral bruits. Neurologic: Grossly normal motor and sensory. S/heis alert and oriented x4.EKG shows sinus rhythm. There is lateral T wave inversion, which is newsince 11/10/15. No ST deviation is noted.Recent labs were reviewed. Renal function is normal. LDL was 46. TSH andmagnesium are normal.Electronically Signed:Jovany Morrissey MDNov2016 11:51 [facility]:AURELIA CISNEROS MD [facility] Vital Signs Date Time Vital Sign Value Performing Clinician Faci lity 09-23-2024 20:06-0400 Body temperature 99.1 [degF] Dr. Kobi Adair MD Work Phone: [facility] 09-23-2024 20:06-0400 Diastolic blood pressure 95 mm[Hg] Dr. Kobi Adair MD Work Phone: [facility] 09-23-2024 20:06-0400 Heart rate 85 /min Dr. Kobi Adair MD Work Phone: [facility] 09-23-2024 20:06-0400 Respiratory rate 18 /min Dr. Kobi Adair MD Work Phone: [facility] 09-23-2024 20:06-0400 SaO2% (BldA) [Mass fraction] 96 % Dr. Kobi Adair MD Work Phone: [facility] 09-23-2024 20:06-0400 Systolic blood pressure 158 mm[Hg] Dr. Kobi Adair MD Work Phone: [facility] 09-23-2024 13:13-0400 Body height 170.[address] Kobi Adair MD Work Phone: [facility] 09-23-2024 13:13-0400 Body mass index (BMI) [Ratio] 35.7 kg/m2 Dr. Kobi Adair MD Work Phone: [facility] 09-23-2024 13:13-0400 Body weight 103.[address] Kobi Adair MD Work Phone: [facility] 10-28-2023 09:48-0400 Body height 167.6 cm Sriram Valles MD Work Phone: [facility] 10-28-2023 09:48-0400 Body mass index (BMI) [Ratio] 38.83 kg/m2 Sriram Valles MD Work Phone: [facility] 10-28-2023 09:48-0400 Body weight 109.14 kg Sriram Valles MD Work Phone: [facility] 10-28-2023 09:48-0400 Diastolic blood pressure 84 mm[Hg] Sriram Valles MD Work Phone: [facility] 10-28-2023 09:48-0400 Heart rate 89 /min Sriram Valles MD Work Phone: [facility] 10-28-2023 09:48-0400 SaO2% (BldA) [Mass fraction] 97 % Sriram Valles MD Work Phone: [facility] 10-28-2023 09:48-0400 Systolic blood pressure 133 mm[Hg] Sriram Valles MD Work Phone: [facility] 05-14-2022 09:37-0500 Body weight 110.22 kg Sriram Valles MD Work Phone: [facility] 05-14-2022 09:37-0500 Diastolic blood pressure 80 mm[Hg] Sriram Valles MD Work Phone: [facility] 05-14-2022 09:37-0500 Heart rate 92 /min Sriram Valles MD Work Phone: [facility] 05-14-2022 09:37-0500 SaO2% (BldA) [Mass fraction] 96 % Sriram Valles MD Work Phone: [facility] 05-14-2022 09:37-0500 Systolic blood pressure 118 mm[Hg] Sriram Valles MD Work Phone: [facility] Encounters Encounter Date Encounter Type Care Provider Facility Start: 09-23-2024 Evaluation and manag ement of inpatient Dr. Cory Conteh MD -Medical Surgical 3 Work Phone: Start: 04-20-2024 End: 05-07-2024 ambulatory ESSIE ELAM [facility] Start: 04-14-2024 ambulatory Liliane Lowe [place] [place]: 04-14-2024 End: 04-18-2024 Evaluation and management of inpatient Kobi Adair Facility:[facility] Start: 12-17-2023 End: 12-17-2023 Telephone encounter Nikia Adair MD Work Phone: Internal Medicine [place] Comment on above: Letter Start: 11-07-2023 Patient encounter procedure [facility] Provider [facility] Department Start: 10-28-2023 End: 10-28-2023 ambulatory SRIRAM VALLES Facility:[facility] Start: 10-28-2023 End: 10-28-2023 Patient encounter procedure Sriram Valles MD Work Phone: Cardiology Comment on above: Coronary artery dise ase involving kasaan coronary artery of kasaan heart without angina pectoris (Primary Dx); Mixed hyperlipidemia; Acute respiratory failure, unspecified whether with hypoxia or hypercapnia (HCC); Hypertensive heart disease with diastolic heart failure (HCC); Obesity, Class III, 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); Type 2 diabetes mellitus with diabetic polyneuropathy, with long-term current use of insulin (HCC); Mitral valve disorder Start: 07-09-2022 End: 07-09-2022 Nursing evaluation of patient and report Nurse Card Admin [facility] Work Phone: Cardiology Comment on above: Screening for ischem ic heart disease (Primary Dx) Start: 07-09-2022 End: 07-09-2022 Subsequent hospital visit by physician Injection Nm [facility] Work Phone: Nuclear Medicine Comment on above: Shortness of breath [R06.02] Start: 07-05-2022 ambulatory Nurse Card Adm in [facility] Work Phone: Cardiology Comment on above: Stress Test Instruct ions Start: 07-05-2022 E-mail encounter zita rock caregiver Nurse Card Admin [facility] Work Phone: [facility] Start: 05-14-2022 End: 05-14-2022 Patient encounter procedure Sriram Valles MD Work Phone: Cardiology Comment on above: Screening for ischem ic heart disease (Primary Dx); Shortness of breath; Hypertensive heart disease with diastolic heart failure (HCC); Mixed hyperlipidemia; S/P CABG x 4 Start: 04-04-2022 ambulatory Claudia Henriquez [facility] [place] Comment on above: [facility] ([facility]) Start: 01-29-2022 End: 01-29-2022 Patient encounter procedure Nick Pangroscoe Work Phone: Podiatry Comment on above: Onychomycosis (Prima ry Dx); Pain in toe of left foot; Pain in toe of right foot; Diabetic polyneuropathy associated with type 2 diabetes mellitus (HCC); Ingrowing toenail of right foot Start: 11-07-2021 Telephone encounter Carolina castellanos APRN.CNP Work Phone: Family Medicine [place] Comment on above: Orders Start: 11-06-2021 End: 11-06-2021 Subsequent hospital visit by physician Ct [facility] ([facility]) Work Phone: Cat Scan Comment on above: Lung nodules [R91.8] Start: 10-24-2021 ambulatory Nikia Adair MD Work Phone: Internal Medicine [facility] [place] Start: 09-11-2021 Telephone encounter Carolina castellanos BELT SPLICER.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 Work Phone: [facility] [place] Comment on above: Results Start: 08-16-2021 Telephone encounter Clint Pablo MD Work Phone: Radiation Oncology Comment on above: Patient Update Start: 07-27-2021 Telephone encounter Clint Pablo MD Work Phone: Radiation Oncology Comment on above: change appointment Start: 04-22-2018 Ambulatory JOVANY MORRISSEY Facility :[facility] Start: 08-20-2017 End: 08-20-2017 Ambulatory JOVANY Fishman [facility] Start: 02-20-2017 End: 02-20-2017 [facility] JOVANY Kye [facility] Start: 01-09-2017 Ambulatory JOVANY MORRISSEY [facility] Procedures Date Procedure Procedure Detail Performing Clinician Start: 09-23-2024 Urnls dip stick/tabl et reagent auto microscopy Dr. Kobi Adair MD Work Phone: Start: 09-23-2024 CT of abdomen and pelvis without contrast Dr. Kobi Adair MD Work Phone: Start: 09-23-[address] Kobi Adair MD Work Phone: Start: 10-28-2023 Ecg routine ecg w/le ast 12 lds i&r only [facility] Provider Start: 07-09-2022 Myocardial spect multiple studies Sriram Valles MD Work Phone: Start: 11-06-2021 Ct thorax w/o contra st material Carolina Rice BELT SPLICER.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 Work Phone: Start: 11-10-2019 History of coronary artery bypass grafting S/P CABG x 4 Clint Howe MD, MD Work Phone: Start: 11-19-2011 History of placement of stent for coronary artery disease S/P coronary artery stent placement Clint Howe MD, MD Work Phone: History of coronary artery bypass grafting S/P CABG x 4 Sriram Valles MD Work Phone: Plan of Treatment Date Care Activity Detail Author Start: 07-23-2032 Urine microalbumin profile DTa P,Tdap,Td Vaccine (4 - Td or Tdap) [facility] Start: 02-04-2028 Urine microalbumin profile [facility] Start: 12-11-2024 Glaucoma screening Dilated Retinal E xam [facility] Start: 10-27-2024 End: 10-27-2024 Echocardiography ECHO Cardiology Routine Hypertensive heart disease with diastolic heart failure (HCC) Mitral valve disorder Expected: 10/27/2024, Expires: 10/27/2024 [facility] Comment on above: Expected: 10/27/2024 , Expires: 10/27/2024 Start: 10-26-2024 End: 10-26-2024 Patient encounter procedure 10/26/2024 1:40 PM EDT Office Visit Cardiology [address] [place] [id number] Sriram Valles MD [address], [address] [place] [address] 1 year follow up Cardiology Comment on above: 1 year follow up Start: 09-23-2024 Hospital admission, emergency, from emergency room, medical nature [facility] Start: 09-08-2024 End: 09-08-2024 Patient encounter procedure 09/08/2024 9:40 AM EDT Office Visit Cardiology [address] [place], [place] [id number] Hypertensive heart disease with diastolic heart failure (HCC) [I11.0, I50.30] Cardiology Comment on above: Hypertensive heart d isease with diastolic heart failure (HCC) [I11.0, I50.30] Start: 12-08-2023 Covid-19 Vaccine ( season) Covid-19 Vaccine ( season) [facility] Start: 12-08-2023 Influenza vaccination Influenza Vacc ine (#1) [facility] Start: 10-28-2023 End: 10-23-2024 ECG COMPLETE [facility] Work Phone: Comment on above: Expected: 10/28/2023 , Expires: 10/23/2024 Start: 07-11-2023 Glaucoma screening Dilated Retinal E xam [facility] Start: 07-11-2023 Hepatitis C antibody , confirmatory test Dilated Retinal Exam [facility] Start: 05-10-2023 Ct thorax w/o contra st material CT CHEST WO IVCON Radiology Routine Lung nodules Expected: 05/10/2023 [facility] Work Phone: Comment on above: Expected: 05/10/2023 Start: 04-08-2023 Advance Directive Discussion Advance Directive Discussion [facility] Start: 01-29-2023 3 comp foot exam completed DIABETIC FOOT EXAM [facility] Start: 01-29-2023 Diabetic foot examination Diabetic F oot Exam [facility] Start: 12-07-2022 Covid-19 Vaccine ( season) Covid-19 Vaccine () [facility] Start: 12-07-2022 Covid-19 Vaccine () Covid-19 Vaccine () [facility] Start: 12-07-2022 Influenza vaccination C [facility] Start: 09-08-2022 ANNUAL PCP TEAM SKI LIFT OPERATOR SCOOTER DISEASE VISIT ANNUAL PCP TEAM CHRONIC DISEASE VISIT [facility] Start: 09-08-2022 BP CONTROLLED (<130/80) BP CON TROLLED (<130/80) [facility] Start: 05-29-2022 ANNUAL PCP TEAM SKI LIFT OPERATOR SCOOTER DISEASE VISIT ANNUAL PCP TEAM CHRONIC DISEASE VISIT [facility] Start: 05-29-2022 BP CONTROLLED (<130/80) BP CON TROLLED (<130/80) [facility] Start: 05-21-2022 End: 05-14-2023 Echocardiography ECHO Cardiology Routine Shortness of breath Expected: 05/21/2022, Expires: 05/14/2023 [facility] Work Phone: Comment on above: Expected: 05/21/2022 , Expires: 05/14/2023 Start: 04-08-2022 ADVANCE DIRECTIVE DISCUSSION ADVANCE DIRECTIVE DISCUSSION [facility] Start: 03-10-2022 Hemoglobin A1c measurement HbA1C [facility] Start: 03-10-2022 Hemoglobin A1c/Hemoglobin.total in Blood HBA1C [facility] Start: 12-07-2021 Influenza vaccination INFLUENZA (#1) [facility] Start: 11-09-2021 Hepatitis B screening URINE ALBUMIN:CREATININE RATIO [facility] Start: 11-09-2021 Hepatitis B surface antibody level LDL CHOLESTEROL [facility] Start: 10-24-2021 End: 12-24-2021 ALBUMIN/CREAT RATIO RND UR ALBUMIN/CREAT RATIO RND UR Lab Routine Type 2 diabetes mellitus with diabetic nephropathy, with long-term current use of insulin (HCC) Expected: 10/24/2021, Expires: 12/24/2021 [facility] Work Phone: Comment on above: Expected: 10/24/2021 , Expires: 12/24/2021 Start: 10-24-2021 End: 12-24-2021 SCHEDULE LAB TESTING SCHEDULE LAB TESTING Lab Routine Expected: 10/24/2021, Expires: 12/24/2021 [facility] Work Phone: Comment on above: Expected: 10/24/2021 , Expires: 12/24/2021 Start: 09-11-2021 End: 11-11-2021 Comprehensive metabolic 2000 panel - Serum or Plasma COMP METABOLIC PANEL Lab Routine Elevated alkaline phosphatase level Expected: 09/11/2021, Expires: 11/11/2021 [facility] Work Phone: Comment on above: Expected: 09/11/2021 , Expires: 11/11/2021 Start: 09-11-2021 End: 11-11-2021 Gamma glutamyl transferase [Enzymatic activity/volume] in Serum or Plasma GGT BLD Lab Routine Elevated alkaline phosphatase level Expected: 09/11/2021, Expires: 11/11/2021 [facility] Work Phone: Comment on above: Expected: 09/11/2021 , Expires: 11/11/2021 Start: 08-26-2021 3 comp foot exam completed DIABETIC FOOT EXAM [facility] Start: 06-08-2021 Hemoglobin A1c/Hemoglobin.total in Blood HBA1C [facility] Start: 06-08-2021 Hepatitis C antibody , confirmatory test DILATED RETINAL EXAM [facility] Start: 06-07-2021 COVID-19 VACCINE (5 - Booster) COVID-19 VACCINE (5 - Booster) [facility] Start: 04-08-2021 ADVANCE DIRECTIVE DISCUSSION ADVANCE DIRECTIVE DISCUSSION [facility] Start: 11-12-2020 COVID-19 VACCINE (4 - Booster) COVID-19 VACCINE (4 - Booster) [facility] Start: 05-30-2009 SHINGRIX VACCINE (2 of 3) FATIMA GRIX VACCINE (2 of 3) [facility] Start: 2005 Hepatitis B Vaccine (1 of 3 - Risk 3-dose series) Hepatitis B Vaccine (1 of 3 - Risk 3-dose series) [facility] Start: 2005 RSV Vaccine (1 - 1-d ose 60+ series) RSV Vaccine (1 - 1-dose 60+ series) [facility] Start: 1963 Anxiety Screening Anxiety Screening [facility] Ct thorax w/o contra st material CT CHEST WO IVCON Radiology Routine Lung nodules 11/06/2021 9:50 AM EDT [facility] Work Phone: End: 05-09-2023 ECG COMPLETE ECG COMPLETE ECG Routine Screening for ischemic heart disease 1 Occurrences starting 05/09/2022 until 05/09/2023 [facility] Work Phone: Comment on above: 1 Occurrences starti ng 05/09/2022 until 05/09/2023 NM CARDIAC PERF STRESS/PHARM NM CARDIAC PERF STRESS/PHARM Radiology Routine Shortness of breath Ordered: 05/14/2022 [facility] Work Phone: Comment on above: Ordered: 05/14/[address] [facility] Work Phone: [facility] Immunizations Immunization Date Immunization Notes Care Provider Fa cility 01-08-2023 influenza virus vacc ine, unspecified formulation Sriram Valles MD Work Phone: [facility] 03-10-2021 influenza, high-dose , quadrivalent vaccine (FLUZONE HIGH DOSE QUADRIVALENT) Clint Howe MD, MD Work Phone: [facility] 03-10-2021 influenza virus vacc ine, unspecified formulation Injection Wstr Work Phone: [facility] 07-13-2020 COVID-19 vaccine, ag e 12+ yr (PFIZER-BIONTECH - PURPLE TOP) Clint Howe MD, MD Work Phone: [facility] Work Phone: 07-05-2020 Covid (Pfizer) Dr. Barry Adair MD Work Phone: [facility] 06-22-2020 COVID-19 vaccine, ag e 12+ yr (PFIZER-BIONTECH - PURPLE TOP) Clint Howe MD, MD Work Phone: [facility] Work Phone: 06-06-2020 COVID-19 vaccine, ag e 12+ yr (PFIZER-BIONTECH - PURPLE TOP) Carolina Sternlogjulio BELT SPLICER.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 Work Phone: [facility] 01-11-2020 influenza, high-dose , quadrivalent vaccine (FLUZONE HIGH DOSE QUADRIVALENT) Carolina Sternlogjulio BELT SPLICER.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 Work Phone: [facility] 02-05-2019 influenza, high dose seasonal, preservative-free Clint Howe MD, MD Work Phone: [facility] 02-03-2018 influenza, high dose seasonal, preservative-free Clint Howe MD, MD Work Phone: [facility] 01-10-2017 influenza, high dose seasonal, preservative-free Clint Howe MD, MD Work Phone: [facility] 02-01-2016 influenza, high dose lukas, preservative-free Clint Howe MD, MD Work Phone: [facility] Work Phone: 02-01-2016 pneumococcal polysaccharide vaccine, 23 valent Clint Howe MD, MD Work Phone: [facility] Work Phone: 07-18-2015 pneumococcal conjuga te vaccine, 13 valent Clint Howe MD, MD Work Phone: [facility] 01-31-2015 influenza, high dose seasonal, preservative-free Clint Howe MD, MD Work Phone: [facility] Work Phone: 01-13-2014 influenza, seasonal, injectable Clint Howe MD, MD Work Phone: [facility] 02-21-2013 influenza virus vacc ine, unspecified formulation Clint Howe MD, MD Work Phone: [facility] Work Phone: 02-06-[address] Kobi Adair MD Work Phone: [facility] 02-06-2013 influenza, seasonal, injectable, preservative free Carolina Podlogar BELT SPLICER.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 Work Phone: [facility] 04-08-2012 pneumococcal polysaccharide vaccine, 23 valent Carolina Podlogar BELT SPLICER.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 Work Phone: [facility] 04-08-2012 pneumococcal vaccine , unspecified formulation Dr. Kobi Adair MD Work Phone: [facility] 02-16-2012 influenza virus vacc ine, unspecified formulation Clint Howe MD, MD Work Phone: [facility] 01-19-2011 influenza virus vacc ine, unspecified formulation Clint Howe MD, MD Work Phone: [facility] 01-09-2010 influenza virus vacc ine, unspecified formulation Clint Howe MD, MD Work Phone: [facility] Work Phone: 04-04-2009 zoster vaccine, live Clint Howe MD, MD Work Phone: [facility] Work Phone: 03-21-2009 novel influenza-H1N1 -09, preservative-free, injectable Carolina Podlogar BELT SPLICER.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 Work Phone: [facility] 03-17-2009 novel influenza-H1N1 -09, all formulations Clint Howe MD, MD Work Phone: [facility] Work Phone: 01-21-2009 influenza virus vacc ine, unspecified formulation Clint Howe MD, MD Work Phone: [facility] 07-17-2008 pneumococcal polysaccharide vaccine, 23 valent Clint Howe MD, MD Work Phone: [facility] Work Phone: 01-23-2008 influenza virus vacc ine, whole virus Clint Howe MD, MD Work Phone: [facility] Work Phone: 11-18-2007 pneumococcal polysaccharide vaccine, 23 valent Clint Howe MD, MD Work Phone: [facility] Work Phone: 02-06-2007 influenza virus vacc ine, unspecified formulation Clint Howe MD, MD Work Phone: [facility] Work Phone: 06-07-2003 tetanus and diphther ia toxoids, adsorbed, preservative free, for adult use (2 Lf of tetanus toxoid and 2 Lf of diphtheria toxoid) Clint Howe MD, MD Work Phone: [facility] Work Phone: Payers Date Payer Category Payer Self-pay 2024 Unknown [id number] 2019 Private Health Insurance DANILO GONSALEZ MEDICARE SUPPLEMENT [id number] 2019-Present [phone] [address] [place] [address] Indemnity [id number] 2019 Private Health Insurance [id number] 2019 Medicare [id number] 2010 Medicare MEDICARE MEDICAR E A AND B [id number] 2010-Present [phone] [place] [address] Medicare [id number] 2010 Medicare MEDICARE MEDICAR E A AND B [id number] 2010-Present [phone] [place] [address] Medicare [id number] 2010 Medicare [id number] 1945 Unknown [id number] Medicare [id number] Unknown [id number] Unknown [id number] Unknown [id number] Unknown [id number] Unknown [id number] Social History Date Type Detail Facility Start: 09-26-2010 End: 09-23-2024 Tobacco smoking status NHIS Ex-smoker [facility] Start: 09-27-1963 End: 09-26-1973 History of tobacco use Current smoker [facility] Start: 09-26-2010 End: 10-29-2022 Cigarettes smoked current (pack per day) - Reported 0.5 [facility] Start: 09-26-2010 End: 05-14-2022 Tobacco use and exposure Former smokeless tobacco user [facility] End: 01-23-2007 History of tobacco use Chews Tobacco [facility] Start: 05-29-2021 End: 10-28-2023 Alcohol intake Current drinker of alcohol (finding) [facility] Start: 12-13-2020 End: 09-07-2021 History SDOH Alcohol Frequency 2 [facility] Start: 12-13-2020 End: 09-07-2021 History SDOH Alcohol Std Drinks 1 [facility] Start: 06-23-2013 History SDOH Alcohol Comment Rarely [facility] Start: 12-13-2020 History SDOH Social Connections Phone 5 [facility] Start: 12-13-2020 History SDOH Social Connections Meetings 3 [facility] Start: 12-13-2020 History SDOH Physical Activity DPW 0 [facility] Start: 12-13-2020 Education 21 [facility] Start: 1945 Sex Assigned At Male [facility] Start: 08-29-2021 End: 09-13-2021 Exposure to SARS-CoV-2 (event) Not sure [facility] Start: 09-27-1963 End: 09-26-1973 History of tobacco use Cigarette Smoker [facility] Start: 12-13-2020 End: 10-29-2022 Social connection and isolation panel [facility] Do you belong to any clubs or organizations such as holiness groups, unions, fraternal or athletic groups, or school groups? Yes [facility] Are you now , , , , never or living with a partner? [facility] How often to you hav e a drink containing alcohol? Monthly or less [facility] How many standard dr inks containing alcohol do you have on a typical day? 1 or 2 [facility] How often do you hav e 6 or more drinks on 1 occasion? Never [facility] How hard is it for y ou to pay for the very basics like food, housing, medical care, and heating Not hard at all [facility] Do you feel stress - tense, restless, nervous, or anxious, or unable to sleep at night because your mind is troubled all the time - these days [OSQ] Only a little [facility] (I/We) worried wheth er (my/our) food would run out before (I/we) got money to buy more. Never true [facility] In the past 12 month s, was there a time when you were not able to pay the mortgage or rent on time? No [facility] Start: 2019 Gender identity Identifies as male gender (finding) [facility] Start: 02-05-2019 Sexual orientation Heterosexual (finding) [facility] Start: 05-13-2013 Alcohol Alcohol [facility] Start: 05-13-2013 Lives Lives [facility] Start: 05-13-2013 Tobacco Use Tobacco Use [facility] Medical Equipment Procedure Code Equipment Code Equipment Origin al Text Equipment Identifier Dates Use as directed with insulin pen Dx: E11.21 DM: yes insulin: yes [id number] Start: 04-19-2016 Comment on above: Use as directed with insulin pen Dx: E11.21 DM: yes insulin: yes Clinical Notes 03-24-2015 to 09-23-2024 Telephone Encounter - Alicja Galeas MA - 12/17/2023 11:39 AM EDTTelephone Encounter - Alicja Galeas MA - 12/17/2023 11:39 AM Sriram Fajardo MD - 10/28/2023 10:05 AM EDT Note Date & Type Note Facility 09-23-2024 Radiology Diagnostic study note [facility] Imaging Services [address] [place] [address] [id number] Abdomen/Pelvis without Cont MR#: [id number] Acct: [id number] Name: KIMBERLY NAVA Rep #: [id number] : 1945 M 79 From: Rudi Pretty MD PCP: Dr. Kobi Adair MD Status: REG ER Study:Abdomen/Pelvis without Cont Date of Exa m: 09/23/24 Exam# [id number] Ordering Dr: Laura Vazquez DO PROCEDURE: ABDOMEN/PELVIS WITHOUT CONT 09/23/2024 REASON FOR EXAM: LLQ PAIN TECHNIQUE: ABDOMEN/PELVIS WITHOUT CONT Noncontrast technique limits evaluation of the abdominal and pelvic viscera. Coronal and Sagittal reconstruction series were provided. One or more dose reduction techniques were used (e.g., Automated exposure control, adjustment of the mA and/or kV according to patient size, use of iterative reconstruction technique). ORAL CONTRAST TYPE: None. COMPARISON: None. FINDINGS: The peripheral soft tissues are unremarkable. Degenerative changes of the spine. Moderate atherosclerosis. No suspicious lymphadenopathy. The liver is unremarkable. The gallbladder is distended. The pancreas and spleen are unremarkable. Left distal ureter 6 mm calculus with mdsinxco-mu-bplfrw upstream hydroureteronephrosis Severely enlarged prostate. The urinary bladder is unremarkable. Normal caliber large and small bowel. CT/Abdomen/Pelvis without Cont IMPRESSION: Left distal ureter 6 mm calculus with tecjcmmv-at-yqvaqi upstream hydroureteronephrosis. Severe prostatomegaly. Reading Location: [id number] CC: Dr. Kobi Adair MD; Dr. Marco Antonio Vazquez DO ~ Truck Spotter: Signed [facility] 04-17-2024 Note [facility] Medical Records Department [address] [place] [address] Discharge Summary 04/17/24 1629 MR#: [id number] Acct: [id number] Name: KIMBERLY NAVA Rep #: [id number] : 1945 79 From: Toshia Pro MD PCP: Dr. Kobi Adair MD Status:ADM IN Location: [place] [address] Providers Date of Admission: 04/14/24 Date of Discharge: 04/17/24 Primary Care Physician: Dr. Kobi Adair MD Reason For Visit: FALL, NONDISPLACED FX LEFT GREATER TROCHANTERIC Diagnosis Discharge Diagnosis (1) Fracture of greater trochanter: Status: Acute Code(s): S72.113A - Displaced fracture of greater trochanter of unspecified femur, initial encounter for closed fracture Plan # Nondisplaced comminuted fracture of the left greater trochanter #Type 2 diabetes mellitus #Hypertension #Hx of chronic heart failure with preserved ejection fraction # History of coronary artery disease/valvular heart disease # CKD stage III b #Hypothyroidism #GERD Medications at Discharge Home Medications aspirin 81 mg chewable tablet 81 mg PO DAILY heart health 03/10/13 atorvastatin 40 mg tablet 40 mg PO QHS cholesterol 03/10/13 isosorbide mononitrate 30 mg tablet,extended release 24 hr 30 mg PO DAILY heart 03/10/13 levothyroxine 200 mcg tablet (Levoxyl) 200 mcg PO DAILY thyroid 03/10/13 nitroglycerin 0.4 mg sublingual tablet 0.4 mg sublingual Q5M PRN Chest Pain 03/10/13 sertraline 50 mg tablet 50 mg PO DAILY mental health 04/14/15 famotidine 10 mg tablet 10 mg PO BID reflux 02/18/21 magnesium oxide 400 mg (241.3 mg magnesium) tablet 400 mg PO DAILY supplement 02/18/21 semaglutide 0.25 mg or 0.5 mg (2 mg/1.5 mL) subcutaneous pen injector (Ozempic) 0.5 mg subcut TH diabetes 02/18/21 trospium 20 mg tablet 20 mg PO BID bladder 02/18/21 carbidopa ER 25 mg-levodopa 100 mg tablet,extended release 1 tab PO QHS 04/14/24 multivitamin with iron 1 tab PO DAILY 04/14/24 vit C 250 mg-vit E 90 mg-zinc 40 mg-copper 1 [id number] capsule (PreserVision AREDS-2) 1 tab PO BID 04/14/24 enoxaparin 40 mg/0.4 mL subcutaneous syringe 40 mg (0.4 mL) subcut DAILY 30 days #12 mL 04/17/24 furosemide 20 mg tablet 20 mg PO DAILY diuretic #30 tabs 04/17/24 insulin glargine 100 unit/mL (3 mL) subcutaneous pen (Lantus Solostar U-100 Insulin) 40 unit (0.4 mL) subcut DAILY #30 mL 04/17/24 metoprolol tartrate 25 mg tablet 12.5 mg (1/2 x 25 mg) PO BID 30 days #30 tabs 04/17/24 oxycodone 5 mg tablet 5 mg PO Q4H PRN PRN MODSEVPAIN 3 days #15 tabs 04/17/24 sennosides 8.6 mg-docusate sodium 50 mg tablet (Stimulant Laxative Plus) 2 tab PO BID 30 days #120 tabs 04/17/24 Hospital Course Summary of Care Provided Minutes Spent on Discharge: 25 Hospital Course: Patient is a 79-year-old male history of heart failure with preserved ejection fraction, coronary artery disease with CABG and PCI, mitral valve repair, CKD stage IIIb, diabetes, hypothyroidism, GERD [facility] after a fall with left hip pain. He had mechanical fall 2 days prior to presentation when he slipped on ice while taking out the trash but due to the severe pain patient presented to the ED. CT of left hip showed a nondisplaced comminuted fracture of the left greater trochanter. It was discussed with Ortho in the ED and this is nonoperative and was recommended that patient follow-up on discharge and be admitted for placement. Patient did well during admission. Did have uptrending creatinine so Lasix were held but creatinine then stable. Additionally due to patient receiving as needed pain medication his blood pressure was lower and he had his losartan held and metoprolol decreased. Also due to good glucose control his insulin glargine was 40 units. Patient work with therapy and was deemed a candidate for placement for rehab, day of discharge patient aside from pain has no other new or acute complaints. Discharged to [facility] in stable condition with the following discharge instructions: DISCHARGE INSTRUCTIONS PLEASE READ *Please take this with you to your next doctors appointment* -Due to good control your insulin was decreased to 40 units daily -We also due to pain medication your blood pressure was on the lower side 0 losartan has been held any metoprolol has been decreased, his pain requirements decreased these will likely need to be reinitiated -Due to slightly elevated kidney function your Lasix were held, he will be restarted on 20 mg daily -Weigh yourself every day. A sudden weight gain can mean you are retaining fluid. Weigh yourself at the same time of day and in the same kind of clothes. Ideally, weigh yourself first thing in the morning after you empty your bladder, but before you eat breakfast. -Please call your physician if your weight goes up by more than 2 pounds in 1 day or 5 pounds in 1 week. This can be a sign (more content not included)... [facility] 12-17-2023 Telephone encounter Note Pt notified. [facility] Advised him that the [facility] should be able to write the placard. He said he was given one by the [facility] but [facility] would not accept as it was signed by DRYWALL TAPER not MD. I instructed pt that he would need to call the [facility] and ask that the letter be signed by an MD. Pt voiced understanding. Alicja Galeas MA [facility] 12-17-2023 Miscellaneous Notes Pt notified. [facility]. Advised him that the [facility] should be able to write the placard. He said he was given one by the [facility] but [facility] would not accept as it was signed by DRYWALL TAPER not MD. I instructed pt that he would need to call the [facility] and ask that the letter be signed by an MD. Pt voiced understanding. Alicja Galeas MA We have not seen him since 2021 and his chart no longer has me listed as his PCP. If we are still managing his care, he will need OV for this and to follow up on his diabetes and other chronic medical conditions. Per Kimberly, it is time to renew Handicapped Placard, asking for PCP (Dr. Adair) to write letter. Patient does not go through [facility] for Handicapped Placard letter, please call when ready for pickup. Brandi Tracey LPN documented in this encounter [facility] 12-17-2023 Telephone encounter Note We have not seen him since 2021 and his chart no longer has me listed as his PCP. If we are still managing his care, he will need OV for this and to follow up on his diabetes and other chronic medical conditions. [facility] 12-17-2023 Telephone encounter Note Per Kimberly, it is time to renew Handicapped Placard, asking for PCP (Dr. Adair) to write letter. Patient does not go through [facility] for Handicapped Placard letter, please call when ready for pickup. Brandi Tracey LPN [facility] 10-28-2023 Note HNO ID: [id number] Author: SRIRAM VALLES MD Service: ? Author Type: Physician Type: Progress Notes Filed: 10/28/2023 10:10 Note Text: Sriram Valles MD Interventional Cardiology [address] [place] [address] [phone] Chief Complaint Patient presents with: Follow Up HISTORY OF PRESENT ILLNESS: Mr. Nava is a 78 year old male seen in my office today for assessment management prior history of severe three-vessel coronary artery disease status post bypass surgery which consisted of a BOWLING to the LAD vein graft to the PDA vein graft to the diagonal with mitral valve ring repair for severe mitral regurgitation is doing well from a cardiac point of view asymptomatic denies chest pain or shortness of breath EKG shows sinus rhythm no signs or symptoms of congestive heart failure Cardiac Risk Factors age (male over 45, female over 55), hyperlipidemia, obesity, diabetes, hypertension, family history of CAD PAST MEDICAL HISTORY Diagnosis Date Acute, but ill-defined, cerebrovascular disease 1970s TIA Cancer (HCC) 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 Hogue Depression Diabetes (HCC) DVT (deep venous thrombosis) ([facility]) 2007 Esophageal reflux Generalized osteoarthrosis, unspecified site Hemorrhage of gastrointestinal tract, unspecified History of tobacco use Hypothyroidism Nonspecific (abnormal) findings on radiological and other examination of genitourinary organs 11/18/2007 He has R pelvic Kidney - congenital Obesity (BMI 30-39.9) Obstructive sleep apnea Bipap, seeing [facility] - PAST MEDICAL HISTORY OF 2 CT with quad. bypass and valve repair- DVT after Pure hypercholesterolemia Restless leg syndrome Rheum heart dis NEC/NOS CHILD Rheumatic fever S/P MVR (mitral valve repair) Sciatica Sensorineural hearing loss, unspecified Sensorineural hearing loss Stable angina (HCC) Unspecified essential hypertension Unspecified tinnitus Tinnitus PAST SURGICAL HISTORY Procedure Laterality Date COLONOSCOPY FLX DX W/COLLJ SPEC WHEN PFRMD 09/28/05 COLONOSCOPY FLX DX W/COLLJ SPEC WHEN PFRMD 04-12-15 HEMORRHOIDECTOMY INT AND XTRNL 2/> COLUMN/JUANY 04-20-15 Dr. Mc KNEE ARTHROSCOP MENISCUS REPAIR MED/LAT 08/13/13 Lt knee PAST SURGICAL HISTORY OF 05/21/2007 CABG/ quadruple bypass and mitral valve repair PAST SURGICAL HISTORY OF 12/2010 3 stent placement PAST SURGICAL HISTORY OF right elbow x2 THYROID RIGHT FINE NEEDLE ASPIRATION 12/18/07 U/S FNA right thyroid lobe THYROIDECTOMY TOTAL/COMPLETE 03-02-08 FAMILY HISTORY Problem Relation Age of Onset None Mother [address] AGE 67 Diabetes Father Hypertension Brother Diabetes Brother other (malignant hyp) Paternal Aunt other (malignant hyperthermia) Other 1st cousin Social History Tobacco Use Smoking status: Former Packs/day: 0.50 Years: 10.00 Additional pack years: 0.00 Total pack years: 5.00 Types: Cigarettes Quit date: 09/26/1973 Years since quittin.1 Smokeless tobacco: Former Types: Chew Quit date: 01/23/2007 Vaping Use Vaping Use: Never used Substance Use Topics Alcohol use: Yes Comment: Rarely Drug use: No ALLERGIES Allergen Reactions Inhaled Anesthetics* Mevacor [Lovastatin] Patient's tongue swelled Medications: Current Outpatient Medications Medication Sig Dispense Refill insulin glargine (LANTUS SOLOSTAR U-100 INSULIN) 100 unit/mL (3 mL) Inject 55 Units subcutaneously once daily as directed 5 Pen 3 insulin lispro (HUMALOG U-100 INSULIN) 100 unit/mL injection Take 22 units subcutaneously with dinner 1 Vial semaglutide (OZEMPIC) 0.25 mg or 0.5 mg(2 mg/1.5 mL) pen injector Inject 1 mg weekly every Thrusday 1 Each 5 levothyroxine (SYNTHROID) 25 mcg tablet Take 1 tablet by mouth once daily. Take on empty stomach. For thyroid. 30 tablet 2 metoprolol tartrate, short acting, (LOPRESSOR) 50 mg tablet Take 2 tablets in AM and 1.5 tablets in the evening 90 tablet 1 atorvastatin (LIPITOR) 80 mg tablet Take 0.5 tablets by mouth once daily. ID # [id number] 90 tablet 0 clopidogrel (PLAVIX) 75 mg tablet Take 1 tablet by mouth once daily. 90 tablet 0 furosemide (LASIX) 20 mg tablet Take 1 tablet by mouth twice daily. 180 tablet 0 famotidine (PEPCID) 10 mg tablet Take 1 tablet by mouth twice daily. (Patient taking differently: Take 20 mg by mouth two times a day.) 180 tablet 0 losartan (COZAAR) 100 mg tablet Take 1 tablet by mouth once daily. ID # [id number] 30 tablet 5 trospium (SANCTURA) 20 mg tablet Take 1 tablet by mouth twice daily. 60 tablet 1 levothyroxine (SYNTHROID) 200 mcg tablet Take one tablet daily. 30 tablet 1 tamsulosin (FLOMAX) 0.4 mg Take 2 capsules by mouth daily at bedtime. nitroglycerin sublingual (NITROSTAT) 0.4 mg SL tablet Dissolve 1 tablet under the tongue as needed. FOR CHEST PAIN. IF NO RELIEF CALL 911 1 Bottle of 25 6 Mag (more content not included)... [facility] 10-28-2023 History of Present illness Narrative Images from the original note were not included. Sriram Valles MD Interventional Cardiology [address] [place] [address] [phone] Chief Complaint Patient presents with: Follow Up HISTORY OF PRESENT ILLNESS: Mr. Nava is a 78 year old male seen in my office today for assessment management prior history of severe three-vessel coronary artery disease status post bypass surgery which consisted of a BOWLING to the LAD vein graft to the PDA vein graft to the diagonal with mitral valve ring repair for severe mitral regurgitation is doing well from a cardiac point of view asymptomatic denies chest pain or shortness of breath EKG shows sinus rhythm no signs or symptoms of congestive heart failure Cardiac Risk Factors age (male over 45, female over 55), hyperlipidemia, obesity, diabetes, hypertension, family history of CAD PAST MEDICAL HISTORY Diagnosis Date Acute, but ill-defined, cerebrovascular disease 1970s TIA Cancer ([facility]) 2007 thryoid Chronic rhinitis Congestive heart failure ([facility]) Coronary artery disease Dr. Hogue Depression Diabetes ([facility]) DVT (deep venous thrombosis) ([facility]) 2008 Esophageal reflux Generalized osteoarthrosis, unspecified site Hemorrhage of gastrointestinal tract, unspecified History of tobacco use Hypothyroidism Nonspecific (abnormal) findings on radiological and other examination of genitourinary organs 11/18/2007 He has R pelvic Kidney - congenital Obesity (BMI 30-39.9) Obstructive sleep apnea Bipap, seeing [facility] - PAST MEDICAL HISTORY OF 2-13-08 CT with quad. bypass and valve repair- DVT after Pure hypercholesterolemia Restless leg syndrome Rheum heart dis NEC/NOS CHILD Rheumatic fever S/P MVR (mitral valve repair) Sciatica Sensorineural hearing loss, unspecified Sensorineural hearing loss Stable angina (HCC) Unspecified essential hypertension Unspecified tinnitus Tinnitus PAST SURGICAL HISTORY Procedure Laterality Date COLONOSCOPY FLX DX W/COLLJ SPEC WHEN PFRMD 09/28/05 COLONOSCOPY FLX DX W/COLLJ SPEC WHEN PFRMD 04-12-15 HEMORRHOIDECTOMY INT & XTRNL 2/> COLUMN/JUANY 04-20-15 Dr. Mc KNEE ARTHROSCOP MENISCUS REPAIR MED/LAT 08/13/13 Lt knee PAST SURGICAL HISTORY OF 05/21/2007 CABG/ quadruple bypass and mitral valve repair PAST SURGICAL HISTORY OF 12/2010 3 stent placement PAST SURGICAL HISTORY OF right elbow x2 THYROID RIGHT FINE NEEDLE ASPIRATION 12/18/07 U/S FNA right thyroid lobe THYROIDECTOMY TOTAL/COMPLETE 03-02-08 FAMILY HISTORY Problem Relation Age of Onset None Mother [address] AGE 67 Diabetes Father Hypertension Brother Diabetes Brother other (malignant hyp) Paternal Aunt other (malignant hyperthermia) Other 1st cousin Social History Tobacco Use Smoking status: Former Packs/day: 0.50 Years: 10.00 Additional pack years: 0.00 Total pack years: 5.00 Types: Cigarettes Quit date: 09/26/1973 Years since quittin.1 Smokeless tobacco: Former Types: Chew Quit date: 01/23/2007 Vaping Use Vaping Use: Never used Substance Use Topics Alcohol use: Yes Comment: Rarely Drug use: No ALLERGIES Allergen Reactions Inhaled Anesthetics* Mevacor [Lovastatin] Patient's tongue swelled Medications: Current Outpatient Medications Medication Sig Dispense Refill insulin glargine (LANTUS SOLOSTAR U-100 INSULIN) 100 unit/mL (3 mL) Inject 55 Units subcutaneously once daily as directed 5 Pen 3 insulin lispro (HUMALOG U-100 INSULIN) 100 unit/mL injection Take 22 units subcutaneously with dinner 1 Vial semaglutide (OZEMPIC) 0.25 mg or 0.5 mg(2 mg/1.5 mL) pen injector Inject 1 mg weekly every Thrusday 1 Each 5 levothyroxine (SYNTHROID) 25 mcg tablet Take 1 tablet by mouth once daily. Take on empty stomach. For thyroid. 30 tablet 2 metoprolol tartrate, short acting, (LOPRESSOR) 50 mg tablet Take 2 tablets in AM and 1.5 tablets in the evening 90 tablet 1 atorvastatin (LIPITOR) 80 mg tablet Take 0.5 tablets by mouth once daily. ID # [id number] 90 tablet 0 clopidogrel (PLAVIX) 75 mg tablet Take 1 tablet by mouth once daily. 90 tablet 0 furosemide (LASIX) 20 mg tablet Take 1 tablet by mouth twice daily. 180 tablet 0 famotidine (PEPCID) 10 mg tablet Take 1 tablet by mouth twice daily. (Patient taking differently: Take 20 mg by mouth two times a day.) 180 tablet 0 losartan (COZAAR) 100 mg tablet Take 1 tablet by mouth once daily. ID # [id number] 30 tablet 5 trospium (SANCTURA) 20 mg tablet Take 1 tablet by mouth twice daily. 60 tablet 1 levothyroxine (SYNTHROID) 200 mcg tablet Take one tablet daily. 30 tablet 1 tamsulosin (FLOMAX) 0.4 mg Take 2 capsules by mouth daily at bedtime. nitroglycerin sublingual (NITROSTAT) 0.4 mg SL tablet Dissolve 1 tablet under the tongue as needed. FOR CHEST PAIN. IF NO RELIEF CALL 911 1 Bottle of 25 6 Magnesium Oxide 420 mg tab Take one tablet by mouth once daily 90 tablet 3 insulin needles, DISPOSABLE, 31 gauge x 5/16 ndle Use as directed with insulin pen Dx: E11.21 DM: yes insulin: yes 100 Each 3 isosorbide mononitrate ER (IMDUR) 30 mg 24 hr tablet Take 30 mg by mouth once daily. 0 CPAP CHIN STRAP with mask refit optimization, USED WITH CPAP DEVICE 1 Device 0 CPAP Please dispense a full face mask for PAP therapy. He liked medium Kristine View full face mask during titration study. Dx ANABELL 1 Device 0 potassium chloride ER (K-DUR, KLOR-CON) 10 mEq tablet Take 1 tablet by mouth once daily. 30 tablet 1 CPAP Pressure change: Bilevel PAP 19/15 cmH2O. Please fax 30 day compliance download to [phone]. Dx: ANABELL, treatment emergent CSA 1 Device 0 sertraline (ZOLOFT) 50 mg tablet Take 1 tablet by mouth once daily. 90 tablet 2 carbidopa-levodopa (SINEMET) 25-100 mg per tablet Take 1 tablet by mouth at bedtime as needed. ID # [id number] 90 tablet 3 aspirin(ECOTRIN LOW STRENGTH 81 MG TAB) Take one(1) tablet daily. 0 0 No current facility-administered medications for this visit. Review of Systems Constitutional: Negative for chills, diaphoresis, fever, malaise/fatigue and weight loss. HENT: Negative for congestion, ear discharge, ear pain, hearing loss, nosebleeds, sinus pain, sore throat and tinnitus. Eyes: Negative for blurred vision, double vision, photophobia, pain, discharge and redness. Respiratory: Negative for cough, hemoptysis, sputum production, shortness of breath, wheezing and stridor. Cardiovascular: Negative for chest pain, palpitations, orthopnea, claudication, leg swelling and PND. Gastrointestinal: Negative for abdominal pain, blood in stool, constipation, diarrhea, heartburn, melena, nausea and vomiting. Genitourinary: Negative for dysuria, flank pain, frequency, hematuria and urgency. Musculoskeletal: Negative for back pain, falls, joint pain, myalgias and neck pain. Skin: Negative for itching and rash. Neurological: Negative for dizziness, tingling, tremors, sensory change, speech change, focal weakness, seizures, loss of consciousness, weakness and headaches. Endo/Heme/Allergies: Negative for environmental allergies and polydipsia. Does not bruise/bleed easily. Psychiatric/Behavioral: Negative for depression, hallucinations, memory loss, substance abuse and suicidal ideas. The patient is not nervous/anxious and does not have insomnia. Physical Examination: Vitals:BP 133/84 Pulse 89 Ht 5' 6 (1.68m) Wt 240 lb 9.6 oz (109.1kg) SpO2 97% BMI 38.85 kg/(m^2). BP w/Orthostatic Vitals Date and Time Orthostatic BP Orthostatic Pulse BP Pulse BP Position BP Site BP Cuff Size 10/28/23 0948 -- -- 133/84 89 -- -- -- Last 2 Encounter Wt Readings: Date: Wt: 10/28/2023 109.1 kg (240 lb 9.6 oz) 11/03/2022 104.8 kg (231 lb) Physical Exam Constitutional: General: He is not in acute distress. Appearance: He is not diaphoretic. HENT: Head: Normocephalic and atraumatic. Right Ear: External ear normal. Left Ear: External ear normal. Nose: Nose normal. Mouth/Throat: Pharynx: Oropharynx is clear. Eyes: General: Right eye: No discharge. Left eye: No discharge. Conjunctiva/sclera: Conjunctivae normal. Pupils: Pupils are equal, round, and reactive to light. Cardiovascular: Rate and Rhythm: Normal rate and regular rhythm. Heart sounds: Normal heart sounds, S1 normal and S2 normal. No murmur heard. No friction rub. No gallop. No S3 or S4 sounds. Pulmonary: Effort: Pulmonary effort is normal. No respiratory distress. Breath sounds: Normal breath sounds. No wheezing or rales. Chest: Chest wall: No tenderness. Musculoskeletal: General: Normal range of motion. Cervical back: Normal range of motion and neck supple. Skin: General: Skin is warm and dry. Neurological: Mental Status: He is alert and oriented to person, place, and time. Psychiatric: Mood and Affect: Mood normal. Thought Content: Thought content normal. Pertinent Labs: CBC: Hemoglobin (g/dL) Date Value 2019 12.6 Hematocrit (%) Date Value 2019 38.6 WBC (k/uL) Date Value 2019 5.73 Platelet Count (k/uL) Date Value 2019 157 BMP: Glucose (mg/dL) Date Value 09/13/2021 178 03/10/2021 204 Potassium (mmol/L) Date Value 09/13/2021 4.1 03/10/2021 4.8 Sodium (mmol/L) Date Value 09/13/2021 141 03/10/2021 137 Chloride (mmol/L) Date Value 09/13/2021 101 03/10/2021 100 CO2 (mmol/L) Date Value 09/13/2021 26 03/10/2021 26 Creatinine (mg/dL) Date Value 09/13/2021 1.59 03/10/2021 1.59 BUN (mg/dL) Date Value 09/13/2021 18 03/10/2021 18 Anion Gap (mmol/L) Date Value 09/13/2021 14 03/10/2021 11 Calcium (mg/dL) Date Value 03/10/2021 9.3 Calcium, Total (mg/dL) Date Value 09/13/2021 9.6 INR: Lipid Profile: Cholesterol, Total Date Value Ref Range Status 11/09/2020 109 <200 mg/dL Final Comment: <200 mg/dL, Desirable 200-239 mg/dL, Borderline high >239 mg/dL, High HDL Cholesterol Date Value Ref Range Status 11/09/2020 30 (L) >39 mg/dL Final Comment: 40-59 mg/dL, Acceptable >59 mg/dL, High: Negative risk factor for coronary heart disease <40 mg/dL, Low: Positive risk factor for coronary heart disease LDL Cholesterol Date Value Ref Range Status 11/09/2020 47 <100 mg/dL Final Comment: <100 mg/dL, Optimal 100-129 mg/dL, Near optimal/above optimal 130-159 mg/dL, Borderline high 160-189 mg/dL, High >189 mg/dL, Very high Secondary prevention optimal LDL Cholesterol levels are recommended to be < 70 mg/dL Triglyceride Date Value Ref Range Status 11/09/2020 158 (H) <150 mg/dL Final Comment: <150 mg/dL, Normal 150-199 mg/dL, Borderline high 200-499 mg/dL, High >499 mg/dL, Very high Hemoglobin A1C: No results found for: HGBA1C TSH: No results found for: TSHREFL Prior Cardiac Testing EKG Assessment and Plan: 70 years old gentleman with prior history of coronary artery disease bypass surgery mitral valve repair ASSESSMENT/PLAN: 1. Coronary artery disease involving kasaan coronary artery of kasaan heart without angina pectoris - ICD9: 414.01, ICD10: I25.10 (primary diagnosis) Stable coronary artery disease continue medical therapy - ECG COMPLETE 2. Mixed hyperlipidemia - ICD9: 272.2, ICD10: E78.2 - Controlled - Continue current medications - Counseled on healthy diet and regular exercise - ECG COMPLETE 3. Hypertensive heart disease with diastolic heart failure (HCC) - ICD9: 402.91, 428.30, 428.0, ICD10: I11.0, I50.30 - Controlled - Continue current medications - Recommend home blood pressure monitoring, to bring results to next visit - Encouraged sodium restriction, DASH or Mediterranean diet - Recommend regular aerobic exercise - HFpEF 50+ - Continue current medications - ECHO - PERFLUTREN LIPID MICROSPHERES 1.1 MG/ML INJECTION IN NS 10 ML - SODIUM CHLORIDE 0.9 % (FLUSH) INJECTION SYRINGE 5. Obesity, Class III, 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) - ICD9: 278.01, ICD10: E66.01 Stable - Eat well program 6. Type 2 diabetes mellitus with diabetic polyneuropathy, with long-term current use of insulin (HCC) - ICD9: 250.60, 357.2, V58.67, ICD10: E11.42, Z79.4 - Controlled - Continue current medications 7. Mitral valve disorder - ICD9: 394.9, ICD10: I05.9 Status post mitral valve repair need echo in a year - ECHO - PERFLUTREN LIPID MICROSPHERES 1.1 MG/ML INJECTION IN NS 10 ML - SODIUM CHLORIDE 0.9 % (FLUSH) INJECTION SYRINGE Sriram Valles MD Follow up planning: ONE YEAR Electronically signed by Sriram Valles MD on October 28, 2023, 10:05 AM The above note was partially created using a dictation recognition software. A reasonable attempt has been made to correct any errors. documented in this encounter [facility] 07-09-2022 History of Present illness Narrative RADIOLOGY SERVICE PROGRESS NOTE SERVICE DATE: 07/09/2022 SERVICE TIME: 844 PATIENT IDENTITY VERIFICATION COMPLETED USING TWO (2) METHODS: Patient confirmed name and Date of verbally. ALLERGIES REVIEWED: DM MEDICATIONS REVIEWED BY: DM PROCEDURE TYPE: NM STRESS: 0.4 mg of Lexiscan was administered IV at 0917 over 10 Seconds by Cathryn Wolfe RN Reversal agent used:N/A LOT [id number] EXP 12/07/2025 IV SITE: IV palced by nuclear tecnologist POST EXAM PIV STATUS: Discontinued by Cork Wirer PATIENT DISCHARGED TO: Nuclear Medicine Department for post stress imaging A Diagnostic radioactive procedure has taken place, with no further precautions necessary other than routine body substance precautions. More information regarding radiation safety can be found using this link: [email or web address] [email or web address] SIGNATURE: Cathryn Wolfe RN PATIENT NAME:Kimberly Nava DATE: 07/09/22 TIME: 10:40 AM documented in this encounter [facility] 07-09-2022 History of Present illness Narrative RADIOLOGY SERVICE PROGRESS NOTE SERVICE DATE: 07/09/2022 SERVICE TIME: 7:52 AM PATIENT IDENTITY VERIFICATION COMPLETED USING TWO (2) STANDARD IDENTIFIERS: Name and Date of confirmed by patient verbally FALL SCREENING: Has the patient had 2 falls in the last year or 1 fall with injury or currently using an Ambulatory Assistive Device (Walker, Cane, Wheelchair, Crutches, etc.)? No PATIENT GENDER DATA: .male : No ALLERGIES: Reviewed and unchanged MEDICATIONS REVIEWED: No PATIENT RELEVANT IMPLANT DATA REVIEWED: Not Applicable CREATININE: Creatinine Date Value Ref Range Status 09/13/2021 1.59 (H) 0.73 - 1.22 mg/dL Final 09/08/2021 1.56 (H) 0.73 - 1.22 mg/dL Final 03/10/2021 1.59 (H) 0.73 - 1.22 mg/dL Final Estimated Glomerular Filtration Rate Date Value Ref Range Status 09/13/2021 45 (L) >=60 mL/min/1.73m Final Comment: Estimated Glomerular Filtration Rate (eGFR) is calculated using the 2020 CKD-EPI creatinine equation. This equation utilizes serum creatinine, sex, and age as parameters. The creatinine assay has traceable calibration to isotope dilution-mass spectrometry. Refer to KDIGO guidelines for clinical interpretation. In patients with unstable renal function, e.g. those with acute kidney injury, the eGFR may not accurately reflect actual GFR. eGFR- Date Value Ref Range Status 03/10/2021 51 Final P.O.C.T. RESULTS: N/A July 09, [address] PERFORMED: No IV SITE: Ambulatory: A peripheral IV was started in the Right wrist with a Angio cath: 22 gauge. POST EXAM PIV STATUS: Discontinued PROCEDURE TYPE: NM Stress: 15.3 mCi [id number] was administered IV for Rest Imaging at 0745 by JOHN. 44.8 mCi [id number] was administered IV for Stress Imaging at 0906 by JOHN. PATIENT DISCHARGED TO: Ambulatory patient, left [place] department area. A Diagnostic radioactive procedure has taken place, with no further precautions necessary other than routine body substance precautions. More information regarding radiation safety can be found using this link: [email or web address] [email or web address] [email or web address] SIGNATURE: RT Elliott(R) PATIENT NAME: Kimberly Nava DATE: July 09, 2022 TIME: 7:52 AM PAGER/CONTACT #: documented in this encounter [facility] 05-14-2022 History of Present illness Narrative Images from the original note were not included. Sriram Valles MD Interventional Cardiology [address] [address] [phone] Chief Complaint Patient presents with: Established Patient Follow-Up HISTORY OF PRESENT ILLNESS: Mr. Nava is a 77 year old male seen in my office today for assessment management of his chronic condition patient had prior history of severe progressive coronary artery disease 2006 bypass surgery consisting of a BOWLING to the LAD with vein graft to the PDA and vein graft first segment of the cardia catheterization shows occluded vein graft to the PDA stent with stroke then he had mitral valve replacement with #27 angioplasty ring for severe mitral regurgitation He comes in for follow-up this year doing no report symptoms of congestive heart failure He does have exertional dyspnea limiting 1 flight of stairs showed systolic chest pain He is on appropriate medical therapy EKG in the office shows normal sinus rhythm with a heart rate of 93 bpm his MN interval is 186 ms with Q waves in the inferior leads QT corrected is 474 ms Cardiac Risk Factors age (male over 45, female over 55), hyperlipidemia, history of smoking, obesity, diabetes, hypertension, family history of CAD PAST MEDICAL HISTORY Diagnosis Date Acute, but ill-defined, cerebrovascular disease 1970s TIA Cancer (HCC) 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 Hogue Depression Diabetes (HCC) DVT (deep venous thrombosis) (HCC) 2008 Esophageal reflux Generalized osteoarthrosis, unspecified site Hemorrhage of gastrointestinal tract, unspecified History of tobacco use Hypothyroidism Nonspecific (abnormal) findings on radiological and other examination of genitourinary organs 11/18/2007 He has R pelvic Kidney - congenital Obesity (BMI 30-39.9) Obstructive sleep apnea Bipap, [facility] - PAST MEDICAL HISTORY OF 05-21-07 CT with quad. bypass and valve repair- DVT after Pure hypercholesterolemia Restless leg syndrome Rheum heart dis NEC/NOS CHILD Rheumatic fever S/P MVR (mitral valve repair) Sciatica Sensorineural hearing loss, unspecified Sensorineural hearing loss Stable angina (HCC) Unspecified essential hypertension Unspecified tinnitus Tinnitus PAST SURGICAL HISTORY Procedure Laterality Date COLONOSCOPY FLX DX W/COLLJ SPEC WHEN PFRMD 09/28/05 COLONOSCOPY FLX DX W/COLLJ SPEC WHEN PFRMD 04-12-15 HEMORRHOIDECTOMY INT & XTRNL COLUMN/JUANY 04-20-15 Dr. Mc KNEE ARTHROSCOP MENISCUS REPAIR MED/LAT 08/13/13 Lt knee PAST SURGICAL HISTORY OF 05/21/2007 CABG/ quadruple bypass and mitral valve repair PAST SURGICAL HISTORY OF 12/2010 3 stent placement PAST SURGICAL HISTORY OF right elbow x2 THYROID RIGHT FINE NEEDLE ASPIRATION 12/18/07 U/S FNA right thyroid lobe THYROIDECTOMY TOTAL/COMPLETE 03-02-08 FAMILY HISTORY Problem Relation Age of Onset None Mother [address] AGE 67 Diabetes Father Hypertension Brother Diabetes Brother other (malignant hyp) Paternal Aunt other (malignant hyperthermia) Other 1st cousin Social History Tobacco Use Smoking status: Former Packs/day: 0.50 Years: 10.00 Pack years: 5.00 Types: Cigarettes Quit date: 09/26/1973 Years since quittin.6 Smokeless tobacco: Former Types: Chew Quit date: 01/23/2007 Vaping Use Vaping Use: Never used Substance Use Topics Alcohol use: Yes Comment: Rarely Drug use: No ALLERGIES Allergen Reactions Inhaled Anesthetics* Mevacor [Lovastatin] Patient's tongue swelled Medications: Current Outpatient Medications Medication Sig Dispense Refill insulin glargine (LANTUS SOLOSTAR U-100 INSULIN) 100 unit/mL (3 mL) Inject 55 Units subcutaneously once daily as directed 5 Pen 3 insulin lispro (HUMALOG U-100 INSULIN) 100 unit/mL injection Take 22 units subcutaneously with dinner 1 Vial Cholecalciferol, Vitamin D3, 25 mcg (1,000 unit) cap Take 2 capsules by mouth once daily. semaglutide (OZEMPIC) 0.25 mg or 0.5 mg(2 mg/1.5 mL) pen injector Inject 1 mg weekly every Thrusday 1 Each 5 levothyroxine (SYNTHROID) 25 mcg tablet Take 1 tablet by mouth once daily. Take on empty stomach. For thyroid. 30 tablet 2 metoprolol tartrate, short acting, (LOPRESSOR) 50 mg tablet Take 2 tablets in AM and 1.5 tablets in the evening 90 tablet 1 atorvastatin (LIPITOR) 80 mg tablet Take 0.5 tablets by mouth once daily. ID # [id number] 90 tablet 0 clopidogrel (PLAVIX) 75 mg tablet Take 1 tablet by mouth once daily. 90 tablet 0 furosemide (LASIX) 20 mg tablet Take 1 tablet by mouth twice daily. 180 tablet 0 famotidine (PEPCID) 10 mg tablet Take 1 tablet by mouth twice daily. (Patient taking differently: Take 20 mg by mouth twice daily.) 180 tablet 0 losartan (COZAAR) 100 mg tablet Take 1 tablet by mouth once daily. ID # [id number] 30 tablet 5 trospium (SANCTURA) 20 mg tablet Take 1 tablet by mouth twice daily. 60 tablet 1 levothyroxine (SYNTHROID) 200 mcg tablet Take one tablet daily. 30 tablet 1 tamsulosin (FLOMAX) 0.4 mg Take 2 capsules by mouth daily at bedtime. nitroglycerin sublingual (NITROSTAT) 0.4 mg SL tablet Dissolve 1 tablet under the tongue as needed. FOR CHEST PAIN. IF NO RELIEF CALL 911 1 Bottle of 25 6 Magnesium Oxide 420 mg tab Take one tablet by mouth once daily 90 tablet 3 insulin needles, DISPOSABLE, 31 gauge x 5/16 ndle Use as directed with insulin pen Dx: E11.21 DM: yes insulin: yes 100 Each 3 isosorbide mononitrate ER (IMDUR) 30 mg 24 hr tablet Take 30 mg by mouth once daily. 0 CPAP CHIN STRAP with mask refit optimization, USED WITH CPAP DEVICE 1 Device 0 CPAP Please dispense a full face mask for PAP therapy. He liked medium Kristine View full face mask during titration study. Dx ANABELL 1 Device 0 potassium chloride ER (K-DUR, KLOR-CON) 10 mEq tablet Take 1 tablet by mouth once daily. 30 tablet 1 CPAP Pressure change: Bilevel PAP 19/15 cmH2O. Please fax 30 day compliance download to [phone]. Dx: ANABELL, treatment emergent CSA 1 Device 0 sertraline (ZOLOFT) 50 mg tablet Take 1 tablet by mouth once daily. 90 tablet 2 carbidopa-levodopa (SINEMET) 25-100 mg per tablet Take 1 tablet by mouth at bedtime as needed. ID # [id number] 90 tablet 3 aspirin(ECOTRIN LOW STRENGTH 81 MG TAB) Take one(1) tablet daily. 0 0 Miscellaneous Medical Supply Patient needs oxygen 2.5L bled into CPAP (Patient not taking: Reported on 05/14/2022) 1 Each 0 Current Facility-Administered Medications Medication Dose Route Frequency Provider Last Rate Last Admin perflutren lipid microspheres 1.3 mL in NaCl (PF) 0.9% 10 mL injection (DEFINITY) INTRAVENOUS DIRECTED PRN Sriram Valles MD sodium chloride 0.9 % (flush) 10 mL (BD POSIFLUSH) 10 mL INTRAVENOUS DIRECTED PRN Sriram Valles MD Review of Systems Constitutional: Negative for chills, diaphoresis, fever, malaise/fatigue and weight loss. HENT: Negative for congestion, ear discharge, ear pain, hearing loss, nosebleeds, sinus pain, sore throat and tinnitus. Eyes: Negative for blurred vision, double vision, photophobia, pain, discharge and redness. Respiratory: Positive for shortness of breath. Negative for cough, hemoptysis, sputum production, wheezing and stridor. Cardiovascular: Negative for chest pain, palpitations, orthopnea, claudication, leg swelling and PND. Gastrointestinal: Negative for abdominal pain, blood in stool, constipation, diarrhea, heartburn, melena, nausea and vomiting. Genitourinary: Negative for dysuria, flank pain, frequency, hematuria and urgency. Musculoskeletal: Negative for back pain, falls, joint pain, myalgias and neck pain. Skin: Negative for itching and rash. Neurological: Negative for dizziness, tingling, tremors, sensory change, speech change, focal weakness, seizures, loss of consciousness, weakness and headaches. Endo/Heme/Allergies: Negative for environmental allergies and polydipsia. Does not bruise/bleed easily. Psychiatric/Behavioral: Negative for depression, hallucinations, memory loss, substance abuse and suicidal ideas. The patient is not nervous/anxious and does not have insomnia. Physical Examination: Vitals:BP 118/80 Pulse 92 Wt 243 lb (110.2kg) SpO2 96% BP w/Orthostatic Vitals Date and Time Orthostatic BP Orthostatic Pulse BP Pulse BP Position BP Site BP Cuff Size 05/14/22 0937 -- -- 118/80 92 Sitting Right Arm Large Adult Last 2 Encounter Wt Readings: Date: Wt: 05/14/2022 110.2 kg (243 lb) 09/08/2021 109.7 kg (241 lb 12.8 oz) Physical Exam Constitutional: General: He is not in acute distress. Appearance: He is not diaphoretic. HENT: Head: Normocephalic and atraumatic. Right Ear: External ear normal. Left Ear: External ear normal. Nose: Nose normal. Mouth/Throat: Pharynx: Oropharynx is clear. Eyes: General: Right eye: No discharge. Left eye: No discharge. Conjunctiva/sclera: Conjunctivae normal. Pupils: Pupils are equal, round, and reactive to light. Cardiovascular: Rate and Rhythm: Normal rate and regular rhythm. Heart sounds: Normal heart sounds, S1 normal and S2 normal. No murmur heard. No friction rub. No gallop. No S3 or S4 sounds. Pulmonary: Effort: Pulmonary effort is normal. No respiratory distress. Breath sounds: Normal breath sounds. No wheezing or rales. Chest: Chest wall: No tenderness. Musculoskeletal: General: Normal range of motion. Cervical back: Normal range of motion and neck supple. Skin: General: Skin is warm and dry. Neurological: Mental Status: He is alert and oriented to person, place, and time. Psychiatric: Mood and Affect: Mood normal. Thought Content: Thought content normal. Judgment: Judgment normal. Pertinent Labs: CBC: Hemoglobin (g/dL) Date Value 2019 12.6 Hematocrit (%) Date Value 2019 38.6 WBC (k/uL) Date Value 2019 5.73 Platelet Count (k/uL) Date Value 2019 157 BMP: Glucose (mg/dL) Date Value 09/13/2021 178 03/10/2021 204 Potassium (mmol/L) Date Value 09/13/2021 4.1 03/10/2021 4.8 Sodium (mmol/L) Date Value 09/13/2021 141 03/10/2021 137 Chloride (mmol/L) Date Value 09/13/2021 101 03/10/2021 100 CO2 (mmol/L) Date Value 09/13/2021 26 03/10/2021 26 Creatinine (mg/dL) Date Value 09/13/2021 1.59 03/10/2021 1.59 BUN (mg/dL) Date Value 09/13/2021 18 03/10/2021 18 Anion Gap (mmol/L) Date Value 09/13/2021 14 03/10/2021 11 Calcium (mg/dL) Date Value 03/10/2021 9.3 Calcium, Total (mg/dL) Date Value 09/13/2021 9.6 INR: Lipid Profile: Cholesterol, Total Date Value Ref Range Status 11/09/2020 109 <200 mg/dL Final Comment: <200 mg/dL, Desirable 200-239 mg/dL, Borderline high >239 mg/dL, High HDL Cholesterol Date Value Ref Range Status 11/09/2020 30 (L) >39 mg/dL Final Comment: 40-59 mg/dL, Acceptable >59 mg/dL, High: Negative risk factor for coronary heart disease <40 mg/dL, Low: Positive risk factor for coronary heart disease LDL Cholesterol Date Value Ref Range Status 11/09/2020 47 <100 mg/dL Final Comment: <100 mg/dL, Optimal 100-129 mg/dL, Near optimal/above optimal 130-159 mg/dL, Borderline high 160-189 mg/dL, High >189 mg/dL, Very high Secondary prevention optimal LDL Cholesterol levels are recommended to be < 70 mg/dL Triglyceride Date Value Ref Range Status 11/09/2020 158 (H) <150 mg/dL Final Comment: <150 mg/dL, Normal 150-199 mg/dL, Borderline high 200-499 mg/dL, High >499 mg/dL, Very high Hemoglobin A1C: No results found for: HGBA1C TSH: No results found for: TSHREFL Prior Cardiac Testing ekg Assessment and Plan: 77 years old gentleman prior history of coronary artery disease bypass surgery left Coronary artery disease Status post bypass surgery Exertional dyspnea suspicious for progression of his coronary artery disease Scheduled for Lexiscan stress test to assess LV function rule out any evidence of ischemia 2. Mitral valve repair Status post mitral valve repair in 2007 patient is actively assessed mitral valve the mitral regurgitation Cardiology plan Lexiscan nuclear stress test Echocardiography to assess mitral valve Follow-up Follow up planning: One year Electronically signed by Sriram Valles MD on May 14, 2022, 10:07 AM The above note was partially created using a dictation recognition software. A reasonable attempt has been made to correct any errors. documented in this encounter [facility] 04-04-2022 History of Present illness Narrative Images from the original note were not included. POPULATION HEALTH NAVIGATION OUTREACH Action/ANAHY Eldridge sent [employer] message: Enedina Henriquez MA I most recently was granted 100% disability by the 's admin. therefore I will be utilizing them for my primary care. I will use them for Annual Wellness Visit in the future. Any questions give me a call [phone], Thank you. [facility] [employer] message sent ANNUAL MEDICARE WELLNESS EXAM ADVANCE DIRECTIVE DISCUSSION Never done DILATED RETINAL EXAM due on 06/08/2021 URINE ALBUMIN:CREATININE RATIO due on 11/09/2021 INFLUENZA(1) due on 12/07/2021 HBA1C due on 03/10/2022 Pt identified by name and : NO Outreach Outcome/Action Unable to reach patient: Left message [employer] message sent PCP field updated Did you use a PCP flex slot to schedule this appointment? N/A Reason for Outreach Care Gap or Scheduling/Wellness visits Payer: Payor: MEDICARE / Plan: MEDICARE A AND B / Product Type: Medicare / Care Gap Reviewed:: Annual Wellness visit Diabetic Eye Exam HBA1C Nephropathy (Albumin/Creatinine) Urine Flu vaccine Reminder: Reminder note to check Health Maintenance for items below Health Maintenance items due: SHINGRIX VACCINE(2 of 3) due on 05/30/2009 ADVANCE DIRECTIVE DISCUSSION Never done COVID-19 VACCINE(5 - Booster) due on 06/07/2021 DILATED RETINAL EXAM due on 06/08/2021 URINE ALBUMIN:CREATININE RATIO due on 11/09/2021 LDL CHOLESTEROL due on 11/09/2021 INFLUENZA(1) due on 12/07/2021 HBA1C due on 03/10/2022 Navigation Signature: Claudia Henriquez MA April 04, 2022 9:14 AM documented in this encounter [facility] 01-29-2022 History of Present illness Narrative Last saw Carolina Podlogar 09/08/21 Subjective: Patient presents to clinic c/o painful toenails. They state that the nails are especially painful with shoe gear and pressure. Patient states that nails right hallux medial nail border is painful. Patient admits to being diabetic. No other pedal complaints at this time. Patient states no change in medications or medical history since last visit. Objective: Patient presents to clinic ambulating in diabetic shoe Vasc: DP and PT pulses are palpable bilateral. CFT is less than 5 seconds bilateral. Skin temperature is warm to cool proximal to distal bilateral. There is no edema or varicosities noted. Neuro: Protective sensation is intact to the foot and toes when tested with the 5.07 SWM bilateral. Vibratory sensation is decreased at the hallux IPJ bilateral. The hallux is downgoing bilateral. Derm: Nails 1-5 b/l are painful, discolored-yellow, thick, crumbly, dystrophic and with subungal debris. Ingrowing toenail of right hallux medial nail border without infection. Skin is of normal turgor, texture and hair growth is present bilateral. There are no hyperkeratosis, ulcerations, scars, verruca or other lesions noted. Ortho: Muscle strength is 5/5 for all pedal groups tested. Ankle joint DF is full with the knee extended with no pain or crepitus noted. 1st MPJ ROM is full bilateral. Assessment: (B35.1) Onychomycosis (primary encounter diagnosis) (M79.675) Pain in toe of left foot (M79.674) Pain in toe of right foot (E11.42) Diabetic polyneuropathy associated with type 2 diabetes mellitus (HCC) (L60.0) Ingrowing toenail of right foot Plan: Patient was seen and evaluated. Nails 1-5 bilateral were debrided in length and thickness. Discussed ingrowing toenail of right hallux. Offered matrixectomy but patient declined. Patient was instructed on the continued importance of diabetic foot care along with proper diet and keeping their blood sugar under control to prevent complications. Patient is to RTC in 3-4 months. Nick Wall DPM AMB ROOMING INTAKE FLOWSHEET DATA Risk Screening Do you have concerns about personal safety or safety in the home?: No Patient presents with: Left Foot - Established Patient, Follow Up, Diabetic Foot Care Right Foot - Established Patient, Follow Up, Ingrown Toenail, Diabetic Foot Care Cristy Naidu LPN documented in this encounter [facility] 01-29-2022 Instructions Nick Wall - 01/29/2022 9:59 AM EDT Diabetes Foot Care Instructions When you have diabetes, proper foot care is very important. Poor foot care may lead to amputation of a foot or leg. As a person with diabetes, you are more vulnerable to foot problems, because diabetes can damage your nerves and reduce blood flow to your feet. Here are some diabetes foot care tips to follow: Wash and Dry Your Feet Daily Use mild soaps Use warm water Pat your skin dry; do not rub. Thoroughly dry your feet. After washing, use lotion on your feet to prevent cracking. Do not put lotion between your toes. Examine Your Feet Each Day Check the tops and bottoms of your feet. Have someone else look at your feet if you cannot see them. Check for dry, cracked skin. Look for blisters, cuts, scratches, or other sores. Check for redness, increased warmth, or tenderness when touching any area of your feet. Check for ingrown toenails, corns, and calluses. If you get a blister or sore from your shoes, do not pop it. Apply a bandage and wear a different pair of shoes. Take Care of Your Toenails Cut toenails after bathing, when they are soft. Cut toenails straight across and smooth with a nail file. Avoid cutting into the corners of toes. Do not cut cuticles. If you have neuropathy (or decreased sensation in your feet) a stretcher leveler operator helper should always cut your toenails. Be Careful When Exercising Walk and exercise in comfortable shoes. Do not exercise when you have open sores on your feet. Protect Your Feet With Shoes and Socks Never go barefoot. Always protect your feet by wearing shoes or hard-soled slippers or footwear. Avoid shoes with high heels and pointed toes. Avoid shoes that expose your toes or heels (such as open-toed shoes or sandals). These types of shoes increase your risk for injury and potential infections. Try on new footwear with the type of socks you usually wear. Do not wear new shoes for more than an hour at a time. Change your socks daily. Look and feel inside your shoes before putting them on to make sure there are no foreign objects or rough areas. Avoid tight socks. Wear natural-fiber socks (cotton, wool, or a cotton-wool blend). Wear special shoes if your health care provider recommends them. Wear shoes/boots that will protect your feet from various weather conditions (cold, moisture, etc.). Make sure your shoes fit properly. If you have neuropathy (nerve damage), you may not notice that your shoes are too tight. Perform the footwear test described below. Footwear Test Use this simple test to see if your shoes fit correctly: Stand on a piece of paper. (Make sure you are standing and not sitting, because your foot changes shape when you stand.) Trace the outline of your foot. Trace the outline of your shoe. Compare the tracings: Is the shoe too narrow? Is your foot crammed into the shoe? The shoe should be at least 1/2 inch longer than your longest toe and as wide as your foot. Proper Shoe Choices The following types of shoes are best for people with diabetes Closed toes and heels Leather uppers without a seam inside At least 1/2 inch extra space at the end of your longest toe Inside of shoe should be soft with no rough areas Outer sole should be made of stiff material Shoes should be at least as wide as your feet Tips for Foot Care in Diabetes Don't wait to treat a minor foot problem if you have diabetes. Follow your health care provider's guidelines and first aid guidelines. Report foot injuries and infections to your health care provider immediately. Check water temperature with your elbow, not your foot. Do not use a heating pad on your feet. Do not cross your legs. Do not self-treat your corns, calluses, or other foot problems. Go to your health care provider or stretcher leveler operator helper to treat these conditions. documented in this encounter [facility] 11-08-2021 Miscellaneous Notes Called PT LVM letting him know that CT order is in there but the schedules have not been released yet for scheduling. Patient would be happy to get it scheduled now. Is it possible to schedule that far out at this time? [place] LPN Order for CT placed. Please assist in scheduling- is not due until May of 2023 so I am not sure they can schedule that far out. Carolina Rice APRN.CNP Please put in order for the CT and place it as future. Patient notified of results, verbalizes understanding of instructions. Can we assist with scheduling. [place] LPN Please call patient and let him know his lung nodule is stable. Follow-up CT in 18 months. Thanks, Carolina Rice APRN.CNP documented in this encounter [facility] 11-06-2021 History of Present illness Narrative Radiology Service Progress Note PATIENT NAME: Kimberly Nava DATE OF SERVICE: November 06, 2021 TIME: 3:49 PM PATIENT IDENTITY VERIFICATION COMPLETED USING TWO (2) IDENTIFIERS: Name and Date of confirmed by patient verbally. FALL SCREENING: Has the patient had 2 falls in the last year or 1 fall with injury or currently using an Ambulatory Assistive Device (Walker, Cane, Wheelchair, Crutches, etc.)? No PATIENT GENDER DATA: Male PATIENT RELEVANT IMPLANT DATA REVIEWED: Not Applicable RADIOLOGY DEPARTMENT: CT; Exam(s) Completed: Chest PERIPHERAL IV DATA: Not applicable SIGNED BY: RT Gregorio(R) November 06, 2021 3:49 PM documented in this encounter [facility] 10-31-2021 Miscellaneous Notes I spoke with pt today and he reports [facility] and [facility] here is no longer neccessary. Spoke with patient and he still hasn't heard anything re: [facility] Authorization [facility] treatment and we have not received an authorization either. Patient will call when he is able to schedule. Andreia Chandler PSS's- Would you give patient a call and offer to reschedule with Dr Howe? I have been waiting for him to call back to rescheduled. There was a my chart message that he needed to [facility] on [facility] and he would call. I want to to make sure he gets his treatment. Thanks documented in this encounter [facility] 09-12-2021 Miscellaneous Notes Pt called and is notified of providers results and instructions. Pt voices understanding. Sent information to Pt through [employer] [facility] as well. Catie Green RN Please call patient and let him know his A1c is 7.6% which is a great improvement from his last one which was 10%. Continue to follow with [facility] for this. Thyroid level in good range- continue current dose of synthroid. Alkaline phosphatase was elevated. Recommend additional blood work. He should fast 10 hours prior. He tells me someone from [facility] comes to his house frequently. Please ask him if he can get a fax number from them so we can send them our lab results. Kidney function remains decreased but is stable. Continue to avoid NSAID products, eat low salt diet and stay hydrated. Thanks, Carolina Rice APRN.KEN documented in this encounter [facility] 07-27-2021 Miscellaneous Notes Spoke to pt he is aware to come at 2PM but there is no spot on schedule so his appt still says 130PM. Shweta Jones Dr Howe needs to open up his early afternoon on Monday 07/31 for an internal meeting. Please contact pt and change consult time from 1:30pm to 2pm per Dr Howe. Thanks. documented in this encounter [facility] 03-24-2015 History of Past i llness Narrative Problem Noted Date Resolved Date Rectal bleeding 03/24/2015 11/15/2020 Hypothyroid 03/15/2014 03/15/2014 Hypomagnesemia 10/28/2013 11/15/2020 Last Assessment & Plan: Mag was checked and normal Other tear of cartilage or meniscus of knee, cur rent 09/18/2013 09/18/2013 Tear of medial cartilage or meniscus of knee, cu rrent 07/07/2013 09/18/2013 Restless leg syndrome 05/22/2013 05/22/2013 Presence of drug coated stent in LAD coronary ar marleni 11/19/2011 10/28/2013 Angina pectoris 12/22/2010 10/28/2013 Urgency of urination 12/18/2010 10/28/2013 Screening for ischemic heart disease 12/18/2010 11/15/2020 Achilles bursitis or tendinitis 10/05/2010 10/28/2013 Ingrowing nail 10/05/2010 10/28/2013 ASHD (arteriosclerotic heart disease) 09/01/2010 11/15/2020 Mild major depression 06/21/2010 10/28/2013 Last Assessment & Plan: Continues his meds fo venlafaxine. Pain in joint, pelvic region and thigh 0 10/28/2013 Sciatica 09/12/2009 10/28/2013 Overweight 08/01/2009 11/15/2020 Benign paroxysmal positional vertigo 04/09/2008 10/28/2013 Anemia, unspecified 01/23/2008 10/28/2013 Sleep apnea 11/06/2007 04/16/2017 Overview: He uses his machine and does it regularly. Patient get machine and supplies from the [facility]. Last Assessment & Plan: Been for a sleep study, and there was a significant change to his levels, hoping he will be better during the new year. Coronary artery disease invo lving coronary bypass graft of [place] heart without angina pectoris 11/06/2007 11/15/2020 Overview: HAd a 4 vessel bypass in 2007 and then [address] morrissey follows up with him. 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 Otalgia, unspecified 03/07/2005 10/28/2013 Hemorrhage of gastrointestinal tract, unspecifie d 11/15/2020 Obesity (BMI 30-39.9) 11/15/2020 documented as of this encounter (statuses as of 07/28/2021) [facility] History of Past illness Narrative* Problem Noted Date Resolved Date Rectal bleeding 03/24/2015 11/15/2020 Hypothyroid 03/15/2014 03/15/2014 Hypomagnesemia 10/28/2013 11/15/2020 Last Assessment & Plan: Mag was checked and normal Other tear of cartilage or meniscus of knee, cur rent 09/18/2013 09/18/2013 Tear of medial cartilage or meniscus of knee, cu rrent 07/07/2013 09/18/2013 Restless leg syndrome 05/22/2013 05/22/2013 Presence of drug coated stent in LAD coronary ar marleni 11/19/2011 10/28/2013 Angina pectoris 12/22/2010 10/28/2013 Urgency of urination 12/18/2010 10/28/2013 Screening for ischemic heart disease 12/18/2010 11/15/2020 Achilles bursitis or tendinitis 10/05/2010 10/28/2013 Ingrowing nail 10/05/2010 10/28/2013 ASHD (arteriosclerotic heart disease) 09/01/2010 11/15/2020 Mild major depression 06/21/2010 10/28/2013 Last Assessment & Plan: Continues his meds fo venlafaxine. Pain in joint, pelvic region and thigh 0 10/28/2013 Sciatica 09/12/2009 10/28/2013 Overweight 08/01/2009 11/15/2020 Benign paroxysmal positional vertigo 04/09/2008 10/28/2013 Anemia, unspecified 01/23/2008 10/28/2013 Sleep apnea 11/06/2007 04/16/2017 Overview: He uses his machine and does it regularly. [facility] Last Assessment & Plan: Been for a sleep study, and there was a significant change to his levels, hoping he will be better during the new year. Coronary artery disease invo lving coronary bypass graft of [place] heart without angina pectoris 11/06/2007 11/15/2020 Overview: HAd a 4 vessel bypass in 2007 and then [address] morrissey follows up with him. 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 Otalgia, unspecified 03/07/2005 10/28/2013 Hemorrhage of gastrointestinal tract, unspecifie d 11/15/2020 Obesity (BMI 30-39.9) 11/15/2020 documented as of this encounter (statuses as of 09/12/2021) [facility] History of Past illness Narrative* Problem Noted Date Resolved Date Rectal bleeding 03/24/2015 11/15/2020 Hypothyroid 03/15/2014 03/15/2014 Hypomagnesemia 10/28/2013 11/15/2020 Last Assessment & Plan: Mag was checked and normal Other tear of cartilage or meniscus of knee, cur rent 09/18/2013 09/18/2013 Tear of medial cartilage or meniscus of knee, cu rrent 07/07/2013 09/18/2013 Restless leg syndrome 05/22/2013 05/22/2013 Presence of drug coated stent in LAD coronary ar marleni 11/19/2011 10/28/2013 Angina pectoris 12/22/2010 10/28/2013 Urgency of urination 12/18/2010 10/28/2013 Screening for ischemic heart disease 12/18/2010 11/15/2020 Achilles bursitis or tendinitis 10/05/2010 10/28/2013 Ingrowing nail 10/05/2010 10/28/2013 ASHD (arteriosclerotic heart disease) 09/01/2010 11/15/2020 Mild major depression 06/21/2010 10/28/2013 Last Assessment & Plan: Continues his meds fo venlafaxine. Pain in joint, pelvic region and thigh 0 10/28/2013 Sciatica 09/12/2009 10/28/2013 Overweight 08/01/2009 11/15/2020 Benign paroxysmal positional vertigo 04/09/2008 10/28/2013 Anemia, unspecified 01/23/2008 10/28/2013 Sleep apnea 11/06/2007 04/16/2017 Overview: He uses his machine and does it regularly. [facility] Last Assessment & Plan: Been for a sleep study, and there was a significant change to his levels, hoping he will be better during the new year. Coronary artery disease invo lving coronary bypass graft of [place] heart without angina pectoris 11/06/2007 11/15/2020 Overview: HAd a 4 vessel bypass in 2007 and then [address] morrissey follows up with him. 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 Otalgia, unspecified 03/07/2005 10/28/2013 Hemorrhage of gastrointestinal tract, unspecifie d 11/15/2020 Obesity (BMI 30-39.9) 11/15/2020 documented as of this encounter (statuses as of 10/27/2021) [facility] History of Past illness Narrative* Problem Noted Date Resolved Date Rectal bleeding 03/24/2015 11/15/2020 Hypothyroid 03/15/2014 03/15/2014 Hypomagnesemia 10/28/2013 11/15/2020 Last Assessment & Plan: Mag was checked and normal Other tear of cartilage or meniscus of knee, cur rent 09/18/2013 09/18/2013 Tear of medial cartilage or meniscus of knee, cu rrent 07/07/2013 09/18/2013 Restless leg syndrome 05/22/2013 05/22/2013 Presence of drug coated stent in LAD coronary ar marleni 11/19/2011 10/28/2013 Angina pectoris 12/22/2010 10/28/2013 Urgency of urination 12/18/2010 10/28/2013 Screening for ischemic heart disease 12/18/2010 11/15/2020 Achilles bursitis or tendinitis 10/05/2010 10/28/2013 Ingrowing nail 10/05/2010 10/28/2013 ASHD (arteriosclerotic heart disease) 09/01/2010 11/15/2020 Mild major depression 06/21/2010 10/28/2013 Last Assessment & Plan: Continues his meds fo venlafaxine. Pain in joint, pelvic region and thigh 0 10/28/2013 Sciatica 09/12/2009 10/28/2013 Overweight 08/01/2009 11/15/2020 Benign paroxysmal positional vertigo 04/09/2008 10/28/2013 Anemia, unspecified 01/23/2008 10/28/2013 Sleep apnea 11/06/2007 04/16/2017 Overview: He uses his machine and does it regularly. [place] Last Assessment & Plan: Been for a sleep study, and there was a significant change to his levels, hoping he will be better during the new year. Coronary artery disease invo lving coronary bypass graft of [place] heart without angina pectoris 11/06/2007 11/15/2020 Overview: HAd a 4 vessel bypass in 2007 and then [address] morrissey follows up with him. 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 Otalgia, unspecified 03/07/2005 10/28/2013 Hemorrhage of gastrointestinal tract, unspecifie d 11/15/2020 Obesity (BMI 30-39.9) 11/15/2020 documented as of this encounter (statuses as of 11/01/2021) [facility] History of Past illness Narrative* Problem Noted Date Resolved Date Rectal bleeding 03/24/2015 11/15/2020 Hypothyroid 03/15/2014 03/15/2014 Hypomagnesemia 10/28/2013 11/15/2020 Last Assessment & Plan: Mag was checked and normal Other tear of cartilage or meniscus of knee, cur rent 09/18/2013 09/18/2013 Tear of medial cartilage or meniscus of knee, cu rrent 07/07/2013 09/18/2013 Restless leg syndrome 05/22/2013 05/22/2013 Presence of drug coated stent in LAD coronary ar marleni 11/19/2011 10/28/2013 Angina pectoris 12/22/2010 10/28/2013 Urgency of urination 12/18/2010 10/28/2013 Screening for ischemic heart disease 12/18/2010 11/15/2020 Achilles bursitis or tendinitis 10/05/2010 10/28/2013 Ingrowing nail 10/05/2010 10/28/2013 ASHD (arteriosclerotic heart disease) 09/01/2010 11/15/2020 Mild major depression 06/21/2010 10/28/2013 Last Assessment & Plan: Continues his meds fo venlafaxine. Pain in joint, pelvic region and thigh 0 10/28/2013 Sciatica 09/12/2009 10/28/2013 Overweight 08/01/2009 11/15/2020 Benign paroxysmal positional vertigo 04/09/2008 10/28/2013 Anemia, unspecified 01/23/2008 10/28/2013 Sleep apnea 11/06/2007 04/16/2017 Overview: He uses his machine and does it regularly. [place] Last Assessment & Plan: Been for a sleep study, and there was a significant change to his levels, hoping he will be better during the new year. Coronary artery disease invo lving coronary bypass graft of [place] heart without angina pectoris 11/06/2007 11/15/2020 Overview: HAd a 4 vessel bypass in 2007 and then [address] morrissey follows up with him. 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 Otalgia, unspecified 03/07/2005 10/28/2013 Hemorrhage of gastrointestinal tract, unspecifie d 11/15/2020 Obesity (BMI 30-39.9) 11/15/2020 documented as of this encounter (statuses as of 11/07/2021) [facility] History of Past illness Narrative* Problem Noted Date Resolved Date Rectal bleeding 03/24/2015 11/15/2020 Hypothyroid 03/15/2014 03/15/2014 Hypomagnesemia 10/28/2013 11/15/2020 Last Assessment & Plan: Mag was checked and normal Other tear of cartilage or meniscus of knee, cur rent 09/18/2013 09/18/2013 Tear of medial cartilage or meniscus of knee, cu rrent 07/07/2013 09/18/2013 Restless leg syndrome 05/22/2013 05/22/2013 Presence of drug coated stent in LAD coronary ar marleni 11/19/2011 10/28/2013 Angina pectoris 12/22/2010 10/28/2013 Urgency of urination 12/18/2010 10/28/2013 Screening for ischemic heart disease 12/18/2010 11/15/2020 Achilles bursitis or tendinitis 10/05/2010 10/28/2013 Ingrowing nail 10/05/2010 10/28/2013 ASHD (arteriosclerotic heart disease) 09/01/2010 11/15/2020 Mild major depression 06/21/2010 10/28/2013 Last Assessment & Plan: Continues his meds fo venlafaxine. Pain in joint, pelvic region and thigh 0 10/28/2013 Sciatica 09/12/2009 10/28/2013 Overweight 08/01/2009 11/15/2020 Benign paroxysmal positional vertigo 04/09/2008 10/28/2013 Anemia, unspecified 01/23/2008 10/28/2013 Sleep apnea 11/06/2007 04/16/2017 Overview: He uses his machine and does it regularly. [place] Last Assessment & Plan: Been for a sleep study, and there was a significant change to his levels, hoping he will be better during the new year. Coronary artery disease invo lving coronary bypass graft of [place] heart without angina pectoris 11/06/2007 11/15/2020 Overview: HAd a 4 vessel bypass in 2007 and then [address] morrissey follows up with him. 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 Otalgia, unspecified 03/07/2005 10/28/2013 Hemorrhage of gastrointestinal tract, unspecifie d 11/15/2020 Obesity (BMI 30-39.9) 11/15/2020 documented as of this encounter (statuses as of 11/21/2021) [facility] History of Past illness Narrative* Problem Noted Date Resolved Date Rectal bleeding 03/24/2015 11/15/2020 Hypothyroid 03/15/2014 03/15/2014 Hypomagnesemia 10/28/2013 11/15/2020 Last Assessment & Plan: Mag was checked and normal Other tear of cartilage or meniscus of knee, cur rent 09/18/2013 09/18/2013 Tear of medial cartilage or meniscus of knee, cu rrent 07/07/2013 09/18/2013 Restless leg syndrome 05/22/2013 05/22/2013 Presence of drug coated stent in LAD coronary ar marlnei 11/19/2011 10/28/2013 Angina pectoris 12/22/2010 10/28/2013 Urgency of urination 12/18/2010 10/28/2013 Screening for ischemic heart disease 12/18/2010 11/15/2020 Achilles bursitis or tendinitis 10/05/2010 10/28/2013 Ingrowing nail 10/05/2010 10/28/2013 ASHD (arteriosclerotic heart disease) 09/01/2010 11/15/2020 Mild major depression 06/21/2010 10/28/2013 Last Assessment & Plan: Continues his meds fo venlafaxine. Pain in joint, pelvic region and thigh 0 10/28/2013 Sciatica 09/12/2009 10/28/2013 Overweight 08/01/2009 11/15/2020 Benign paroxysmal positional vertigo 04/09/2008 10/28/2013 Anemia, unspecified 01/23/2008 10/28/2013 Sleep apnea 11/06/2007 04/16/2017 Overview: He uses his machine and does it regularly. [facility] Last Assessment & Plan: Been for a sleep study, and there was a significant change to his levels, hoping he will be better during the new year. Coronary artery disease invo lving coronary bypass graft of [place] heart without angina pectoris 11/06/2007 11/15/2020 Overview: HAd a 4 vessel bypass in 2007 and then [address] morrissey follows up with him. 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 Otalgia, unspecified 03/07/2005 10/28/2013 Hemorrhage of gastrointestinal tract, unspecifie d 11/15/2020 Obesity (BMI 30-39.9) 11/15/2020 documented as of this encounter (statuses as of 01/29/2022) [facility] History of Past illness Narrative* Problem Noted Date Resolved Date Rectal bleeding 03/24/2015 11/15/2020 Hypothyroid 03/15/2014 03/15/2014 Hypomagnesemia 10/28/2013 11/15/2020 Last Assessment & Plan: Mag was checked and normal Other tear of cartilage or meniscus of knee, cur rent 09/18/2013 09/18/2013 Tear of medial cartilage or meniscus of knee, cu rrent 07/07/2013 09/18/2013 Restless leg syndrome 05/22/2013 05/22/2013 Presence of drug coated stent in LAD coronary ar marleni 11/19/2011 10/28/2013 Angina pectoris 12/22/2010 10/28/2013 Urgency of urination 12/18/2010 10/28/2013 Screening for ischemic heart disease 12/18/2010 11/15/2020 Achilles bursitis or tendinitis 10/05/2010 10/28/2013 Ingrowing nail 10/05/2010 10/28/2013 ASHD (arteriosclerotic heart disease) 09/01/2010 11/15/2020 Mild major depression 06/21/2010 10/28/2013 Last Assessment & Plan: Continues his meds fo venlafaxine. Pain in joint, pelvic region and thigh 0 10/28/2013 Sciatica 09/12/2009 10/28/2013 Overweight 08/01/2009 11/15/2020 Benign paroxysmal positional vertigo 04/09/2008 10/28/2013 Anemia, unspecified 01/23/2008 10/28/2013 Sleep apnea 11/06/2007 04/16/2017 Overview: He uses his machine and does it regularly. [place]. Last Assessment & Plan: Been for a sleep study, and there was a significant change to his levels, hoping he will be better during the new year. Coronary artery disease invo lving coronary bypass graft of [place] heart without angina pectoris 11/06/2007 11/15/2020 Overview: HAd a 4 vessel bypass in 2007 and then [address] morrissey follows up with him. 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 Otalgia, unspecified 03/07/2005 10/28/2013 Hemorrhage of gastrointestinal tract, unspecifie d 11/15/2020 Obesity (BMI 30-39.9) 11/15/2020 documented as of this encounter (statuses as of 04/10/2022) [facility] History of Past illness Narrative* Problem Noted Date Resolved Date Rectal bleeding 03/24/2015 11/15/2020 Hypothyroid 03/15/2014 03/15/2014 Hypomagnesemia 10/28/2013 11/15/2020 Last Assessment & Plan: Mag was checked and normal Other tear of cartilage or meniscus of knee, cur rent 09/18/2013 09/18/2013 Tear of medial cartilage or meniscus of knee, cu rrent 07/07/2013 09/18/2013 Restless leg syndrome 05/22/2013 05/22/2013 Presence of drug coated stent in LAD coronary ar marleni 11/19/2011 10/28/2013 Angina pectoris 12/22/2010 10/28/2013 Urgency of urination 12/18/2010 10/28/2013 Screening for ischemic heart disease 12/18/2010 11/15/2020 Achilles bursitis or tendinitis 10/05/2010 10/28/2013 Ingrowing nail 10/05/2010 10/28/2013 ASHD (arteriosclerotic heart disease) 09/01/2010 11/15/2020 Mild major depression 06/21/2010 10/28/2013 Last Assessment & Plan: Continues his meds fo venlafaxine. Pain in joint, pelvic region and thigh 0 10/28/2013 Sciatica 09/12/2009 10/28/2013 Overweight 08/01/2009 11/15/2020 Benign paroxysmal positional vertigo 04/09/2008 10/28/2013 Anemia, unspecified 01/23/2008 10/28/2013 Sleep apnea 11/06/2007 04/16/2017 Overview: He uses his machine and does it regularly. [facility] Last Assessment & Plan: Been for a sleep study, and there was a significant change to his levels, hoping he will be better during the new year. Coronary artery disease invo lving coronary bypass graft of [place] heart without angina pectoris 11/06/2007 11/15/2020 Overview: HAd a 4 vessel bypass in 2007 and then [address] morrissey follows up with him. 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 Otalgia, unspecified 03/07/2005 10/28/2013 Hemorrhage of gastrointestinal tract, unspecifie d 11/15/2020 Obesity (BMI 30-39.9) 11/15/2020 documented as of this encounter (statuses as of 05/14/2022) [facility] History of Past illness Narrative* Problem Noted Date Resolved Date Rectal bleeding 03/24/2015 11/15/2020 Hypothyroid 03/15/2014 03/15/2014 Hypomagnesemia 10/28/2013 11/15/2020 Last Assessment & Plan: Mag was checked and normal Other tear of cartilage or meniscus of knee, cur rent 09/18/2013 09/18/2013 Tear of medial cartilage or meniscus of knee, cu rrent 07/07/2013 09/18/2013 Restless leg syndrome 05/22/2013 05/22/2013 Presence of drug coated stent in LAD coronary ar marleni 11/19/2011 10/28/2013 Angina pectoris 12/22/2010 10/28/2013 Urgency of urination 12/18/2010 10/28/2013 Screening for ischemic heart disease 12/18/2010 11/15/2020 Achilles bursitis or tendinitis 10/05/2010 10/28/2013 Ingrowing nail 10/05/2010 10/28/2013 ASHD (arteriosclerotic heart disease) 09/01/2010 11/15/2020 Mild major depression 06/21/2010 10/28/2013 Last Assessment & Plan: Continues his meds fo venlafaxine. Pain in joint, pelvic region and thigh 0 10/28/2013 Sciatica 09/12/2009 10/28/2013 Overweight 08/01/2009 11/15/2020 Benign paroxysmal positional vertigo 04/09/2008 10/28/2013 Anemia, unspecified 01/23/2008 10/28/2013 Sleep apnea 11/06/2007 04/16/2017 Overview: He uses his machine and does it regularly. [facility] [place] [facility] [place] [facility] [place]. Last Assessment & Plan: Been for a sleep study, and there was a significant change to his levels, hoping he will be better during the new year. Coronary artery disease invo lving coronary bypass graft of [place] heart without angina pectoris 11/06/2007 11/15/2020 Overview: HAd a 4 vessel bypass in 2007 and then [address] morrissey follows up with him. 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 Otalgia, unspecified 03/07/2005 10/28/2013 Hemorrhage of gastrointestinal tract, unspecifie d 11/15/2020 Obesity (BMI 30-39.9) 11/15/2020 documented as of this encounter (statuses as of 07/05/2022) [facility] of Past illness Narrative* Problem Noted Date Resolved Date Rectal bleeding 03/24/2015 11/15/2020 Hypothyroid 03/15/2014 03/15/2014 Hypomagnesemia 10/28/2013 11/15/2020 Last Assessment & Plan: Mag was checked and normal Other tear of cartilage or meniscus of knee, cur rent 09/18/2013 09/18/2013 Tear of medial cartilage or meniscus of knee, cu rrent 07/07/2013 09/18/2013 Restless leg syndrome 05/22/2013 05/22/2013 Presence of drug coated stent in LAD coronary ar marleni 11/19/2011 10/28/2013 Angina pectoris 12/22/2010 10/28/2013 Urgency of urination 12/18/2010 10/28/2013 Screening for ischemic heart disease 12/18/2010 11/15/2020 Achilles bursitis or tendinitis 10/05/2010 10/28/2013 Ingrowing nail 10/05/2010 10/28/2013 ASHD (arteriosclerotic heart disease) 09/01/2010 11/15/2020 Mild major depression 06/21/2010 10/28/2013 Last Assessment & Plan: Continues his meds fo venlafaxine. Pain in joint, pelvic region and thigh 0 10/28/2013 Sciatica 09/12/2009 10/28/2013 Overweight 08/01/2009 11/15/2020 Benign paroxysmal positional vertigo 04/09/2008 10/28/2013 Anemia, unspecified 01/23/2008 10/28/2013 Sleep apnea 11/06/2007 04/16/2017 Overview: He uses his machine and does it regularly. [facility] Last Assessment & Plan: Been for a sleep study, and there was a significant change to his levels, hoping he will be better during the new year. Coronary artery disease invo lving coronary bypass graft of [place] heart without angina pectoris 11/06/2007 11/15/2020 Overview: HAd a 4 vessel bypass in 2007 and then [address] morrissey follows up with him. 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 Otalgia, unspecified 03/07/2005 10/28/2013 Hemorrhage of gastrointestinal tract, unspecifie d 11/15/2020 Obesity (BMI 30-39.9) 11/15/2020 documented as of this encounter (statuses as of 07/09/2022) [facility] of Past illness Narrative* Problem Noted Date Diagnosed Date Resolved Date Rectal bleeding 03/24/2015 11/15/2020 Hypothyroid 03/15/2014 03/15/2014 Hypomagnesemia 10/28/2013 11/15/2020 Last Assessment & Plan: Mag was checked and normal Other tear of cartilage or m eniscus of knee, current 09/18/2013 09/18/2013 Tear of medial cartilage or meniscus of knee, current 07/07/2013 09/18/2013 Restless leg syndrome 05/22/20132013 Presence of drug coated sten t in LAD coronary artery 11/19/2011 10/28/2013 Angina pectoris 12/22/2010 10/28/2013 Urgency of urination 12/18/2010 014 Screening for ischemic heart disease 12/18/2010 11/15/2020 Achilles bursitis or tendinitis 10/05/2010 10/28/2013 Ingrowing nail 10/05/2010 10/28/2013 ASHD (arteriosclerotic heart disease) 09/01/2010 11/15/2020 Mild major depression 06/21/20102013 Last Assessment & Plan: Continues his meds fo venlafaxine. Pain in joint, pelvic region and thigh 09/15/2009 10/28/2013 Sciatica 09/12/2009 10/28/2013 Overweight 08/01/2009 11/15/2020 Benign paroxysmal positional vertigo 04/09/2008 10/28/2013 Anemia, unspecified 01/23/2008 10/29/19 14 Sleep apnea 11/06/2007 04/16/2017 Overview: He uses his machine and does it regularly. [facility] [place] [facility] [place] [facility] [place] Last Assessment & Plan: Been for a sleep study, and there was a significant change to his levels, hoping he will be better during the new year. Coronary artery disease invo lving coronary bypass graft of [place] heart without angina pectoris 11/06/2007 11/15/2020 Overview: HAd a 4 vessel bypass in 2007 and then [address] morrissey follows up with him. Last Assessment & Plan: Stable on the plavix and other risk factor modifications HYPERTROPHIC SCAR///KELOID SCAR 10/06/2007 10/28/2013 Scar condition and fibrosis of skin 10/06/2007 10/28/2013 PLANTAR Fasciitis 09/03/2007 10/28/2013 Embolism and thrombosis of unspecified site 08/05/2007 10/28/2013 Overview: Bilateral LE, June 2007, anticoagulate with coumadin through mid 2007 Other specified congenital anomaly of skin 07/28/2007 10/28/2013 Otalgia, unspecified 03/07/2005 014 Hemorrhage of gastrointestin al tract, unspecified 11/15/2020 Obesity (BMI 30-39.9) 2020 documented as of this encounter (statuses as of 02/08/2023) [facility] Past illness Narrative* Problem Noted Date Diagnosed Date Resolved Date Rectal bleeding 03/24/2015 11/15/2020 Hypothyroid 03/15/2014 03/15/2014 Hypomagnesemia 10/28/2013 11/15/2020 Last Assessment & Plan: Mag was checked and normal Other tear of cartilage or m eniscus of knee, current 09/18/2013 09/18/2013 Tear of medial cartilage or meniscus of knee, current 07/07/2013 09/18/2013 Restless leg syndrome 05/22/20132013 Presence of drug coated sten t in LAD coronary artery 11/19/2011 10/28/2013 Angina pectoris 12/22/2010 10/28/2013 Urgency of urination 12/18/2010 014 Screening for ischemic heart disease 12/18/2010 11/15/2020 Achilles bursitis or tendinitis 10/05/2010 10/28/2013 Ingrowing nail 10/05/2010 10/28/2013 ASHD (arteriosclerotic heart disease) 09/01/2010 11/15/2020 Mild major depression 06/21/20102013 Last Assessment & Plan: Continues his meds fo venlafaxine. Pain in joint, pelvic region and thigh 09/15/2009 10/28/2013 Sciatica 09/12/2009 10/28/2013 Overweight 08/01/2009 11/15/2020 Benign paroxysmal positional vertigo 04/09/2008 10/28/2013 Anemia, unspecified 01/23/2008 10/29/19 14 Sleep apnea 11/06/2007 04/16/2017 Overview: He uses his machine and does it regularly. [facility] [place]. Last Assessment & Plan: Been for a sleep study, and there was a significant change to his levels, hoping he will be better during the new year. Coronary artery disease invo lving coronary bypass graft of [place] heart without angina pectoris 11/06/2007 11/15/2020 Overview: HAd a 4 vessel bypass in 2007 and then [address] morrissey follows up with him. Last Assessment & Plan: Stable on the plavix and other risk factor modifications HYPERTROPHIC SCAR///KELOID SCAR 10/06/2007 10/28/2013 Scar condition and fibrosis of skin 10/06/2007 10/28/2013 PLANTAR Fasciitis 09/03/2007 10/28/2013 Embolism and thrombosis of unspecified site 08/05/2007 10/28/2013 Overview: Bilateral LE, June 2007, anticoagulate with coumadin through mid 2007 Other specified congenital anomaly of skin 07/28/2007 10/28/2013 Otalgia, unspecified 03/07/2005 014 Hemorrhage of gastrointestin al tract, unspecified 11/15/2020 Obesity (BMI 30-39.9) 2020 documented as of this encounter (statuses as of 02/08/2023) [facility] Elevated alkaline phosphatase level- Primary Other nonspecific abnormal serum enzyme levels [facility] Type 2 diabetes mellitus with diabetic nephropathy, with long-term current use of insulin (HCC) [facility] Lung nodules Other nonspecific abnormal finding of lung field [facility] Lung nodules- Primary Other nonspecific abnormal finding of lung field [facility] Onychomycosis- Primary Dermatophytosis of nail Pain in toe of left foot Pain in limb Pain in toe of right foot Pain in limb Diabetic polyneuropathy associated with type 2 diabetes mellitus (HCC) Ingrowing toenail of right foot Ingrowing nail [facility] Diagnosis Screening for ischemic heart disease- Primary Shortness of breath Hypertensive heart disease with diastolic heart failure (HCC) Unspecified hypertensive heart disease with heart failure Mixed hyperlipidemia S/P CABG x 4 Postsurgical aortocoronary bypass status [facility] Diagnosis Screening for ischemic heart disease- Primary [facility] Diagnosis Coronary artery disease involving kasaan coronary artery of kasaan heart without angina pectoris- Primary Mixed hyperlipidemia Acute respiratory failure, unspecified whether with hypoxia or hypercapnia (HCC) Hypertensive heart disease with diastolic heart failure (HCC) Unspecified hypertensive heart disease with heart failure Obesity, Class III, 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) Morbid obesity Type 2 diabetes mellitus with diabetic polyneuropathy, with long-term current use of insulin (HCC) Mitral valve disorder Mitral valve disorders documented in this encounter [facility] noteNo assessment information availableWOhio State East [facility] Work Phone: Reason for referral (narrative)* Diagnostic Procedure Only (Routine) - Pending Review Specialty Diagnoses / Procedures Referred By Contac t Referred To Contact [facility] Diagnoses Shortness of breath Procedures NM CARDIAC PERF STRESS/PHARM MYOCARDIAL SPECT MULTIPLE STUDIES Sriram Valles MD [address] [place] [address] [facility] [address] [place] [address] Referral ID Status Reason Start Date Expiration Date Visits Requested Visits Authorized [id number] Pending Review Auto-Generat ed Referral 05/14/2022 06/13/2023 1 1 * Outpatient Procedure (Routine) - Pending Review Specialty Diagnoses / Procedures Referred By Contac t Referred To Contact [facility] Diagnoses Shortness of breath Procedures ECHO ECHO TTHRC R-T 2D W/WOM-MODE COMPL SPEC&COLR D Sriram Valles MD [address] [place] [address] [facility] [place] [address] [place] [address] Referral ID Status Reason Start Date Expiration Date Visits Requested Visits Authorized [id number] Pending Review Auto-Generat ed Referral 05/21/2022 05/14/2023 1 1 * Outpatient Procedure (Routine) - Closed Specialty Diagnoses / Procedures Referred By Contac t Referred To Contact [facility] Diagnoses Screening for ischemic heart disease Procedures ECG COMPLETE ECG ROUTINE ECG W/LEAST 12 LDS W/I&R Sriram Valles MD [address] [place] [address] [facility] [place] [address] [place] [address] Referral ID Status Reason Start Date Expiration Date V isits Requested Visits Authorized [id number] Closed Auto-Generate d Referral 05/09/2022 05/09/2023 1 1 [facility] for referral (narrative)* Outpatient Procedure (Routine) - Authorized Specialty Diagnoses / Procedures Referred By Contac t Referred To Contact [facility] Diagnoses Hypertensive heart disease with diastolic heart failure (HCC) Mitral valve disorder Procedures ECHO ECHO TTHRC R-T 2D W/WOM-MODE COMPL SPEC&COLR D Sriram Valles MD [address], [address] [place] [address] [facility] [address] [place] [address] Referral ID Status Reason Start Date Expiration Date Visits Requested Visits Authorized [id number] Authorized Auto-Generat ed Referral 07/29/2024 10/27/2024 1 1 * Outpatient Procedure (Routine) - New Request Specialty Diagnoses / Procedures Referred By Contac t Referred To Contact [facility] Diagnoses Screening for ischemic heart disease Coronary artery disease involving kasaan coronary artery of kasaan heart without angina pectoris Mixed hyperlipidemia Procedures ECG COMPLETE ECG ROUTINE ECG W/LEAST 12 LDS W/I&R Sriram Valles MD [address], [address] [place] [address] [facility] [address] [place] [address] Referral ID Status Reason Start Date Expiration Date Visits Requested Visits Authorized [id number] New Request Auto-Generat ed Referral 10/28/2023 10/23/2024 1 1 [facility] for referral (narrative)No reason for referral information availableWOhio State East Hospital Work Phone: Reason for visit Narrative* Diagnostic Procedure Only (Routine) - Closed Specialty Diagnoses / Procedures Referred By Tanner t Referred To Contact [facility] Diagnoses Shortness of breath Procedures NM CARDIAC PERF STRESS/PHARM MYOCARDIAL SPECT MULTIPLE STUDIES Sriram Valles MD [address] [place] [address] [facility] [address] [place] [id number] Referral ID Status Reason Start Date Expiration Date V isits Requested Visits Authorized [id number] Closed Auto-Generate d Referral 05/14/2022 06/13/2023 1 1 [facility] Summary Purpose Family History Relationship Condition Age at Onset Recorded Date/T davin father Coronary artery disease Unknown Myocardial infarction Unknown Diabetes mellitus Unknown Cardiac disease Unknown Hypertension Unknown brother Hypertension Unknown Advance Directives Advance Directive Response Recorded Date/ Time Do you have a Healthcare Power of Catering Truck Driver? 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 [address] [place] [address] Ct Imaging Referral ID Status Reason Start Date Expiration Date V isits Requested Visits Authorized [id number] Closed Auto-Generate d Referral 11/26/2021 06/28/2022 1 1 Referral ID Status Reason Start Date Expiration Date Visits Requested Visits Authorized [id number] Pending Review Auto-Generat ed Referral 11/08/2021 12/07/2022 1 1 Chief Complaint and Reason for Visit Chief Complaint Admit Date RADHA LEFT KIDNEY HYDRONEPHROSIS September 8:10pm Additional Source Comments (unrecognized sect ion and content) No Status Records FoundNo Status Records FoundNo Status Records FoundNo Status Records FoundNo Status Records FoundNo Status Records Found INFORMATION SOURCE (unrecogn ized section and content) DATE CREATED AUTHOR 09/25/2017 [facility] DATE CREATED AUTHOR 'S ORGANIZ ATION 09/25/2017 [facility] DATE CREATED AUTHOR AUTHOR'S ORGANIZ ATION 07/17/2020 [facility] DATE CREATED AUTHOR AUTHOR'S ORGANIZ ATION 12/19/2023 [facility] DATE CREATED AUTHOR AUTHOR'S ORGANIZ ATION 04/29/2024 [facility] DATE CREATED AUTHOR AUTHOR'S ORGANIZ ATION 05/10/2024 [facility] Source Comments (unrecognize d section and content) In the event this informatio n is protected by the Federal Confidentiality of Alcohol and Drug Abuse Patient Records regulations: The Federal rules restrict any use of the information to criminally investigate or prosecute any alcohol or drug abuse patient.[facility] CenterIn the event this information is protected by the Federal Confidentiality of Alcohol and Drug Abuse Patient Records regulations: The Federal rules restrict any use of the information to criminally investigate or prosecute any alcohol or drug abuse patient.[facility] CenterIn the event this information is protected by the Federal Confidentiality of Alcohol and Drug Abuse Patient Records regulations: The Federal rules restrict any use of the information to criminally investigate or prosecute any alcohol or drug abuse patient.[facility] CenterIn the event this information is protected by the Federal Confidentiality of Alcohol and Drug Abuse Patient Records regulations: The Federal rules restrict any use of the information to criminally investigate or prosecute any alcohol or drug abuse patient.[facility] CenterIn the event this information is protected by the Federal Confidentiality of Alcohol and Drug Abuse Patient Records regulations: The Federal rules restrict any use of the information to criminally investigate or prosecute any alcohol or drug abuse patient.[facility] CenterIn the event this information is protected by the Federal Confidentiality of Alcohol and Drug Abuse Patient Records regulations: The Federal rules restrict any use of the information to criminally investigate or prosecute any alcohol or drug abuse patient.[facility] CenterIn the event this information is protected by the Federal Confidentiality of Alcohol and Drug Abuse Patient Records regulations: The Federal rules restrict any use of the information to criminally investigate or prosecute any alcohol or drug abuse patient.[facility] CenterIn the event this information is protected by the Federal Confidentiality of Alcohol and Drug Abuse Patient Records regulations: The Federal rules restrict any use of the information to criminally investigate or prosecute any alcohol or drug abuse patient.[facility] CenterIn the event this information is protected by the Federal Confidentiality of Alcohol and Drug Abuse Patient Records regulations: The Federal rules restrict any use of the information to criminally investigate or prosecute any alcohol or drug abuse patient.[facility] CenterIn the event this information is protected by the Federal Confidentiality of Alcohol and Drug Abuse Patient Records regulations: The Federal rules restrict any use of the information to criminally investigate or prosecute any alcohol or drug abuse patient.[facility] CenterIn the event this information is protected by the Federal Confidentiality of Alcohol and Drug Abuse Patient Records regulations: The Federal rules restrict any use of the information to criminally investigate or prosecute any alcohol or drug abuse patient.[facility] CenterIn the event this information is protected by the Federal Confidentiality of Alcohol and Drug Abuse Patient Records regulations: The Federal rules restrict any use of the information to criminally investigate or prosecute any alcohol or drug abuse patient.[facility] CenterIn the event this information is protected by the Federal Confidentiality of Alcohol and Drug Abuse Patient Records regulations: The Federal rules restrict any use of the information to criminally investigate or prosecute any alcohol or drug abuse patient.[facility] CenterIn the event this information is protected by the Federal Confidentiality of Alcohol and Drug Abuse Patient Records regulations: The Federal rules restrict any use of the information to criminally investigate or prosecute any alcohol or drug abuse patient.[facility] CenterIn the event this information is protected by the Federal Confidentiality of Alcohol and Drug Abuse Patient Records regulations: The Federal rules restrict any use of the information to criminally investigate or prosecute any alcohol or drug abuse patient.[facility] CenterIn the event this information is protected by the Federal Confidentiality of Alcohol and Drug Abuse Patient Records regulations: The Federal rules restrict any use of the information to criminally investigate or prosecute any alcohol or drug abuse patient.[facility] Reason for Visit (unrecogniz ed section and content) Reason Comments change appointment Reason Comments Results Reason Comments Patient Update Reason Comments Radiology CT Specialty Diagnoses / Procedures Referred By Contac t Referred To Contact CT IMAGING Diagnoses Lung nodules Procedures CT CHEST WO IVCON DIAGNOSTIC COMPUTED TOMOGRAPHY THORAX W/O CNTRST PodlogarCarolina, 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.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 [address] [place] [address] Ct Imaging Referral ID Status Reason Start Date Expiration Date V isits Requested Visits Authorized [id number] Closed Auto-Generate d Referral 11/26/2021 06/28/2022 1 1 Reason Comments Orders Reason Comments Established Patient Follow Up Diabetic Foot Care Ingrown Toenail Reason Onset Date Comments Population Health Navigation Outreach 04/04/2022 [facility] Reason Comments Established Patient Follow-Up Reason Comments Radiology NM Specialty Diagnoses / Procedures Referred By Contac t Referred To Contact [facility] Diagnoses Shortness of breath Procedures NM CARDIAC PERF STRESS/PHARM MYOCARDIAL SPECT MULTIPLE STUDIES Sriram Valles MD [address] [place] [address] Molecular [facility] Functional Imaging [address] [place] [address] Referral ID Status Reason Start Date Expiration Date V isits Requested Visits Authorized [id number] Closed Auto-Generate d Referral 05/14/2022 06/13/2023 1 1 Reason Comments Follow Up Reason Comments Letter Care Teams (unrecognized sec tion and content) House Coordinator Relationship Specialty Start Date End Date Nikia Adair MD [address] [place] [address] PCP - General Family Practice 04/16/17 Clint Howe MD, [address] [place] [address] Physician Radiation Oncology 07/27/21 House Coordinator Relationship Specialty Start Date End Date Nikia Adair MD [address] [place] [address] PCP - General Family Practice 04/16/17 Clint Howe MD, [address] [place] [address] Physician Radiation Oncology 07/27/21 Clint Howe MD, [address] [place] [address] Physician Radiation Oncology 07/28/21 House Coordinator Relationship Specialty Start Date End Date Nikia Aadir MD [address] [place] [address] PCP - General Family Practice 04/16/17 Clint Howe MD, [address] [place] [address] Physician Radiation Oncology 07/27/21 Clint Howe MD, [address] [place] [address] Physician Radiation Oncology 07/28/21 House Coordinator Relationship Specialty Start Date End Date Nikia Adair MD [address] [place] [address] PCP - General Family Practice 04/16/17 Clint Howe MD, [address] [place] [address] Physician Radiation Oncology 07/27/21 Clint Howe MD, [address] [place] [address] Physician Radiation Oncology 07/28/21 House Coordinator Relationship Specialty Start Date End Date Nikia Adair MD [address] [place] [address] PCP - General Family Practice 04/16/17 Clint Howe MD, [address] [place] [address] Physician Radiation Oncology 07/27/21 Clint Howe MD, [address] [place] [address] Physician Radiation Oncology 07/28/21 House Coordinator Relationship Specialty Start Date End Date Nikia Adair MD [address] [place] [address] PCP - General Family Practice 04/16/17 Clint Howe MD, [address] [place] [address] Physician Radiation Oncology 07/27/21 Clint Howe MD, [address] [place] [address] Physician Radiation Oncology 07/28/21 House Coordinator Relationship Specialty Start Date End Date Nikia Adari MD [address] [place] [address] PCP - General Family Medicine 04/16/17 Clint Howe MD, [address] [place] [address] Physician Radiation Oncology 07/27/21 Clint Howe MD, [address] [place] [address] Physician Radiation Oncology 07/28/21 House Coordinator Relationship Specialty Start Date End Date [facility] [address] [place] [address] PCP - General 04/04/22 Clint Howe MD, [address] [place] [address] Physician Radiation Oncology 07/27/21 Clint Howe MD, [address] [place] [address] Physician Radiation Oncology 07/28/21 House Coordinator Relationship Specialty Start Date End Date [facility] [address] [place] [address] PCP - General 04/04/22 Clint Howe MD, [address] [place] [address] Physician Radiation Oncology 07/27/21 Clint Howe MD, [address] [place] [address] Physician Radiation Oncology 07/28/21 House Coordinator Relationship Specialty Start Date End Date [facility] [address] [place] [address] [place] [address] PCP - General 04/04/22 Clint Howe MD, [address] [place] [address] Physician Radiation Oncology 07/27/21 Clint Howe MD, [address] [place] [address] Physician Radiation Oncology 07/28/21 House Coordinator Relationship Specialty Start Date End Date [facility] [address] [place] [address] PCP - General 04/04/22 Clint Howe MD, [address] [place] [address] Physician Radiation Oncology 07/27/21 Clint Howe MD, [address] [place] [address] Physician Radiation Oncology 07/28/21 House Coordinator Relationship Specialty Start Date End Date [facility] [address] [place] [address] PCP - General 04/04/22 Clint Howe MD, [address] [place] [address] Physician Radiation Oncology 07/27/21 Clint Howe MD, [address] [place] [address] Physician Radiation Oncology 07/28/21 House Coordinator Relationship Specialty Start Date End Date [facility] [address] [place] [address] PCP - General 04/04/22 Clint Howe MD, [address] [place] [address] Physician Radiation Oncology 07/27/21 Clint Howe MD, [address] [place] [address] Physician Radiation Oncology 07/28/21 House Coordinator Relationship Specialty Start Date End Date [facility] [address] [place] [address] PCP - General 04/04/22 Clint Howe MD [address] [place] [address] Physician Radiation Oncology 07/27/21 Clint Howe MD [address] [place] [address] Physician Radiation Oncology 07/28/21 House Coordinator Relationship Specialty Start Date End Date [facility] [address] [facility] [place] [address] PCP - General 04/04/22 Clint Howe MD [address] [place] [address] Physician Radiation Oncology 07/27/21 Clint Howe MD [address] [place] [address] Physician Radiation Oncology 07/28/21 House Coordinator Relationship Specialty Start Date End Date [facility] [address] [place] [address] PCP - General 04/04/22 Clint Howe MD [address] [place] [address] Physician Radiation Oncology 07/27/21 Clint Howe MD [address] [place] [address] Physician Radiation Oncology 07/28/21 Team Status: Active Member Role Status Dates Dr. Kobi Adair MD Primary Care Provider Acti Team Status: Active Member Role Status Dates Dr. Kobi Adair MD Primary Care Provider Acti ve Start: September 23, 2024 Dr. Marco Antonio Vazquez DO Emergency Provider Active Start: September 23, 2024 Dr. Cory Coneth MD Admit Provider Active Start: September 23, 2024 Dr. Cory Conteh MD Attending Provider Active Start: September 23, 2024 Goals (unrecognized section and content) Goals may be documented in a n alternate section FOR RECORDS PERTAINING TO PATIENTS WHO ARE OR HAVE BEEN ENROLLED IN A CHEMICAL DEPENDENCY/SUBSTANCEABUSE PROGRAM, SOME INFORMATION MAY BE OMITTED. This clinical summary was aggregated from multiple sources. Caution should be exercised in using it in the provision of clinical care. This summary normalizes information from multiple sources, and as a consequence, information in this document may materially change the coding, format and clinical context of patient data. In addition, data may be omitted in some cases. CLINICAL DECISIONS SHOULD BE BASED ON THE PRIMARY CLINICAL RECORDS. [employer] provides no warranty or guarantee of the accuracy or completeness of information in this document.
--- OUTSIDE RECORDS SUMMARY | 2024-09-23 22:57 | XMS RPT_ITS | CCD ---
Author Organization [facility] CliniSymd Care Team Providers Care 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 Name Role Phone GHANSHYAM, JOVANY E Unavailable [...] Unavailable Shyam ELAM MD, Daesung Unavailable [facility] Primary Care Provider Clint Howe MD Unavailable Clint Howe MD Unavailable [facility] Primary Care Provider SRIRAM VALLES Referring Unavailable [...] sources) lovastatin; Translations: [LOVASTATIN] Drug Allergy 8 [facility] Repository (19 sources) INHALED ANESTHETICS (HALOGEN BASED); Translations: [INHALED ANESTHETICS (HALOGEN BASED)] Propensity to adverse reactions to drug (disorder) 8 [facility]ository (3 sources) albuterol; Translations: [ALBUTEROL] Drug Allergy 2 [facility] Repository Comment on above: [facility] (1 source) Anesthetics - [place]ide Type - Select A Drug allergy (disorder) 3 [facility] Repository (1 source) Anesthetics - [place] Type- Parabens Drug allergy (disorder) 3 [facility] Repository (1 source) Anesthetics - Amide Type - Select A Allergy to substance 5 Other [facility] Comment on above: FAMILY HX OF MALIGNA NT HYPERTHERMIA WHEN HAD BYPASS - WENT INTO [facility] FOR 21 DAYS WHEN HAD THYROID REMOVED BY DR MC AT [facility] CRASHED BP DROPPED AND HAD TO ABORT OPERATION 1ST TIME AROUND UNSURE OF WHICH ANESTHESIA IT WAS (1 source) Anesthetics - [place] Type- Parabens Allergy to substance 5 Other [facility] Comment on above: FAMILY HX OF MALIGNA NT HYPERTHERMIA WHEN HAD BYPASS - WENT INTO [facility] FOR 21 DAYS WHEN HAD THYROID REMOVED BY DR MC AT [facility] CRASHED BP DROPPED AND HAD TO ABORT [...] 12:00am Start: 11-21-2020 take 1 tablet by radha th once daily clopidogrel (PLAVIX) 75 mg [...] Please fax 30 day compliance download to [phone]. Dx: ANABELL, treatment emergent CSA 1 Device 0 05/17/2015 Active Comment on above: Pressure change: Cordell evel PAP 19/15 cmH2O. Please fax 30 day compliance download to [phone]. Dx: ANABELL, treatment emergent CSA Please dispense [...] 1 tablet by radha twice daily. Vit C,C-Kz-Weata-Lutein -Zeaxan (Preservision Areds-2) 250-90-40-1 mg capsule (1 source) Start: 04-14-2024 take 2 capsules by mouth twice daily Vit C,J-Lw-Jzfca-Lutei n-Zeaxan (Preservision Areds-2) 250-90-40-1 mg capsule Active [...] daily. docusate sodium 50 mg / sennosides, mcfp 8.6 mg oral tablet (1 source) Start: [...] disease (20 sources) Atherosclerotic heart disease of [place] coronary artery without angina pectoris; Translations: [Coronary [...] Auto (Unsp spec) [#/Vol] 1.07 10*3/uL 0.83-4.51 [facility] Absolute neutrophil countOrd ered By: ED PROVIDER on 09-23-2024 Neutrophils (Bld) [#/Vol] 5.0 10*3/uL 2.0-7.7 [facility] Anion gap in Serum or Plasma Ordered By: ED PROVIDER on 09-23-2024 Anion gap [Moles/Vol] 15 mmol/L 5-15 [facility] Automated lymphocyte count a s percentage of total leukocytesOrdered By: ED PROVIDER on 09-23-2024 Lymphocytes/100 WBC Auto (Unsp spec) 15.4 % Low 19-41 [facility] BUN/creatinine ratioOrdered By: ED PROVIDER on 09-23-2024 Urea nitrogen/Creatinine [Mass ratio] 16.3 mg/mg 10-20 [facility] Basophil percentageOrdered B y: ED PROVIDER on 09-23-2024 Basophils/100 WBC (Bld) 0.6 % 0-1 [facility] Bilirubin Test strip Ql (U)O rdered By: Marco Antonio Vazquez on 09-23-2024 Bilirubin Ql (U) Negative Negative [facility] Bilirubin, totalOrdered By: ED PROVIDER on 09-23-2024 Bilirubin [Mass/Vol] 1.07 mg/dL 0.00-1.30 [facility] Carbon dioxide, total [Moles /volume] in Central venous bloodOrdered By: ED PROVIDER on 09-23-2024 CO2 [Moles/Vol] 23.1 mmol/L 21.0-32.0 [facility] Chloride assayOrdered By: ED PROVIDER on 09-23-2024 Chloride [Moles/Vol] 101 mmol/L 98-108 [facility] Eosinophil percentageOrdered By: ED PROVIDER on 09-23-2024 Eosinophils/100 WBC (Bld) 2.4 % 0-5 [facility] Erythrocyte distribution wid th ratioOrdered By: ED PROVIDER on 09-23-2024 Erythrocyte distribution width (RBC) [Ratio] 13.4 % 11.6-14.6 [facility] Erythrocyte distribution wid th standard deviationOrdered By: ED PROVIDER on 09-23-2024 Erythrocyte distribution width (RBC) [Ratio] 45.6 fl High 35.1-43.9 [facility] Glomerular filtration rate ( GFR) estimation/1.73 sq m using serum, plasma, or whole bOrdered By: ED PROVIDER on 09-23-2024 GFR/1.73 sq M.predicted among non-blacks MDRD (S/P/Bld) [Vol rate/Area] 32 mL/min/{1.73_m2} Low >60 [facility] Comment on above: mL/min/1.73m2 CKD-EP I Creatinine Equation (2020) Hematocrit Auto (Bld) [Volum e fraction]Ordered By: ED PROVIDER on 09-23-2024 Hematocrit (Bld) [Volume fraction] 48.6 % 40-54 [facility] Hemoglobin measurementOrdere d By: ED PROVIDER on 09-23-2024 Hemoglobin (Bld) [Mass/Vol] 16.2 g/dL 13.0-16.5 [facility] Immature granulocytes/100 WB C Auto (Bld)Ordered By: ED PROVIDER on 09-23-2024 Immature granulocytes/100 WBC (Bld) 0.300 % 0.0-0.9 [facility] Comment on above: IG% - Immature Granu locytes (promyelocytes, myelocytes and metamyelocytes) > 1% indicates that a LEFT SHIFT is Present. Ketones Test strip Ql (U)Ord ered By: Marco Antonio Vazquez on 09-23-2024 Ketones Ql (U) Negative Negative [facility] Laboratory - Chemistry and C hemistry - challengeOrdered By: ED PROVIDER on 09-23-2024 AST [Catalytic activity/Vol] 23 U/L <38 [facility] Lipase measurementOrdered By : ED PROVIDER on 09-23-2024 Lipase [Catalytic activity/Vol] 44 U/L 13-75 [facility] Comment on above: Please note:LIPASE r evised reference range effective 22. New Lipase methodology. Expected to produce lower values than the previous assay method. NEW Reference Range: 13 - 75 U/L MCV (mean corpuscular volume ) determinationOrdered By: ED PROVIDER on 09-23-2024 MCV (RBC) [Entitic vol] 93.5 fL 80-94 [facility] Mean corpuscular hemoglobin (MCH) determinationOrdered By: ED PROVIDER on 09-23-2024 MCH (RBC) [Entitic mass] 31.2 pg 27.0-32.0 [facility] Mean corpuscular hemoglobin concentration (MCHC) determinationOrdered By: ED PROVIDER on 09-23-2024 MCHC (RBC) [Mass/Vol] 33.3 g/dL 32-36 [facility] Mean platelet volume determi nationOrdered By: ED PROVIDER on 09-23-2024 Platelet mean volume (Bld) [Entitic vol] 10.5 fL 6.2-12.0 [facility] Microscopic analysis of urin e for red blood cells (RBC)Ordered By: Marco Antonio Vazquez on 09-23-2024 Microscopic analysis of urine for red blood cells (RBC) 0-5 SEEN /hpf 0-5 [facility] Monocyte percentageOrdered B y: ED PROVIDER on 09-23-2024 Monocytes/100 WBC (Bld) 9.1 % 0-10 [facility] Mucus LM Ql (Urine sed)Order ed By: Marco Antonio Vazquez on 09-23-2024 Mucus Ql (Urine sed) 0 SEEN /hpf [facility] Neutrophil percentageOrdered By: ED PROVIDER on 09-23-2024 Neutrophils/100 WBC (Bld) 72.2 % High 47-70 [facility] Nitrite Test strip Ql (U)Ord ered By: Marco Antonio Vazquez on 09-23-2024 Nitrite Ql (U) Negative Negative [facility] Nucleated red blood cell per centageOrdered By: ED PROVIDER on 09-23-2024 Nucleated RBC/100 WBC (Bld) [Ratio] 0 % 0-5 [facility] Platelet countOrdered By: ED PROVIDER on 09-23-2024 Platelets (Bld) [#/Vol] 150 10*3/uL 150-450 [facility] Potassium measurement (mass/ volume)Ordered By: ED PROVIDER on 09-23-2024 Potassium (Unsp spec) [Mass/Vol] 4.4 mmol/L 3.3-5.1 [facility] Protein Test strip Ql (U)Ord ered By: Marco Antonio Vazquez on 09-23-2024 Protein Ql (U) 30 mg/dl High Negative [facility] RBC Auto (Bld) [#/Vol]Ordere d By: ED PROVIDER on 09-23-2024 RBC (Bld) [#/Vol] 5.20 10*6/uL 4.6-6.2 [facility] Serum creatinine measurement (mass/volume)Ordered By: ED PROVIDER on 09-23-2024 Creatinine [Mass/Vol] 2.08 mg/dL High 0.70-1.20 [facility] Serum globulin measurementOr dered By: ED PROVIDER on 09-23-2024 Globulin (S) [Mass/Vol] 2.7 g/dL 2.2-4.2 [facility] Serum glucose measurement (m ass/volume)Ordered By: ED PROVIDER on 09-23-2024 Glucose [Mass/Vol] 210 mg/dL High 70-99 [facility] Serum or plasma alanine villafuerte otransferase (ALT) measurementOrdered By: ED PROVIDER on 09-23-2024 ALT [Catalytic activity/Vol] 13 U/L <47 [facility] Serum or plasma albumin chase urement (mass/volume)Ordered By: ED PROVIDER on 09-23-2024 Albumin [Mass/Vol] 4.3 g/dL 3.4-4.8 [facility] Serum or plasma albumin/glob ulin mass ratioOrdered By: ED PROVIDER on 09-23-2024 Albumin/Globulin [Mass ratio] 1.6 {ratio} 0.9-2.4 [facility] Serum or plasma alkaline claudio sphatase measurementOrdered By: ED PROVIDER on 09-23-2024 ALP [Catalytic activity/Vol] 124 U/L 40-129 [facility] Serum or plasma calcium chase urement (mass/volume)Ordered By: ED PROVIDER on 09-23-2024 Calcium [Mass/Vol] 9.2 mg/dL 7.6-11.0 [facility] Serum or plasma urea nitroge n measurement (mass/volume)Ordered By: ED PROVIDER on 09-23-2024 Urea nitrogen [Mass/Vol] 34 mg/dL High 4-19 [facility] Sodium levelOrdered By: ED P [place] on 09-23-2024 Sodium [Moles/Vol] 138 mmol/L 133-145 [facility] Squamous epithelial cells de tection in urine sediment by light microscopyOrdered By: Marco Antonio Vazquez on 09-23-2024 Epithelial cells.squamous LM Ql (Urine sed) 0-5 SEEN /hpf 0-5 [facility] Total proteinOrdered By: ED PROVIDER on 09-23-2024 Protein [Mass/Vol] 7.0 g/dL 5.9-8.4 [facility] Urine clarityOrdered By: Pineda Vazquez on 09-23-2024 Clarity (U) Clear Clear [facility] Urine color determinationOrd ered By: Marco Antonio Vazquez on 09-23-2024 Color (U) Yellow Yellow [facility] Urine glucose detectionOrder ed By: Marco Antonio Vazquez on 09-23-2024 Glucose Ql (U) 1000 mg/dl High Normal [facility] Urine leukocyte esterase det ection by dipstickOrdered By: Marco Antonio Vazquez on 09-23-2024 Leukocyte esterase Test strip Ql (U) Negative Negative [facility] Urine pHOrdered By: Marco Antonio jacobo on 09-23-2024 pH (U) 7.0 [pH] 5.0 - 8.0 [facility] Urine sediment bacteria coun t by microscopy (number/high power field)Ordered By: Marco Antonio Vazquez on 09-23-2024 Bacteria LM.HPF (Urine sed) [#/Area] 0 /[HPF] None Seen [facility] Urine specific gravity measu rementOrdered By: Marco Antonio Vazquez on 09-23-2024 Specific gravity (U) [Rel density] 1.010 1.002-1.03 0 [facility] Urine urobilinogen measureme ntOrdered By: Marco Antonio Vazquez on 09-23-2024 Urobilinogen Ql (U) Normal mg/dl Normal [facility] White blood cell (WBC) count Ordered By: ED PROVIDER on 09-23-2024 WBC (Bld) [#/Vol] 7.0 10*3/uL 4.4-11.0 [facility] White blood cell countOrdere d By: Marco Antonio Vazquez on 09-23-2024 White blood cell count 0-5 SEEN /hpf 0-5 [facility] CBC (NO DIFF)on 04-21-2024 CBC panel Auto (Bld) Normal [facility] Comment on above: Result Comment: CBC( WITHOUT DIFFERENTIAL) Performed By: #### 2 [id number] #### [address] [address] Erythrocyte distribution width (RBC) [Ratio] 13.8 % Normal 12.0 - 15.6 [facility] Comment on above: Performed By: #### 2 12977 #### [facility],[address] [place] [address] Hematocrit (Bld) [Volume fraction] 48.9 % Normal 40.0 - 52.0 [facility] Comment on above: Performed By: #### 2 54848 #### [address] [address] Hemoglobin (Bld) [Mass/Vol] 16.3 g/dL Normal 13.0 - 17.5 [facility] Comment on above: Performed By: #### 2 92228 #### [address] [address] MCH (RBC) [Entitic mass] 31 pg Normal 27 - 33 [facility] Comment on above: Performed By: #### 2 84583 #### [facility],[address] [place] [address] MCHC 33 X10 3 Normal 32 - 36 [facility] Comment on above: Performed By: #### 2 36163 #### [facility],[address] [place] [address] MCV (RBC) [Entitic vol] 93 fL Normal 81 - 98 [facility] Comment on above: Performed By: #### 2 07620 #### [facility],[address] [place] [address] PLATELET 206 x10EE3/UL Normal 150 - 450 [facility] Comment on above: Performed By: #### 2 31667 #### [facility],[address] [place] [address] Platelet mean volume (Bld) [Entitic vol] 8.3 fL Normal 6.4 - 10.5 [facility] Comment on above: Performed By: #### 2 75915 #### [facility],[address] [place], [place] [id number] RBC 5.27 x 10EE6/UL Normal 4.50 - 6.00 [facility] Comment on above: Performed By: #### 2 91882 #### [facility],[address] [place], [place] [id number] WBC 7.2 x 10EE3/UL Normal 4.5 - 10.8 [facility] Comment on above: Performed By: #### 2 37965 #### [facility],[address] [place], [place] [id number] CMP with eGFRon 04-21-2024 AGE 79 years Normal [facility] Comment on above: Performed By: #### 2 96044 #### [facility],[address] [place] [address]709 Albumin [Mass/Vol] 3.5 g/dL Normal 3.4 - 5.0 [facility] Comment on above: Performed By: #### 2 01684 #### [facility],[address] [place] [address] Albumin/Globulin [Mass ratio] 0.9 {ratio} Normal 0.9 - 1.6 [facility] Comment on above: Performed By: #### 2 61361 #### [facility],[address] [place] [address] ALK PHOS 104 U/L Normal 46 - 116 [facility] Comment on above: Performed By: #### 2 89327 #### [facility],[address] [place] [address] 27669 ALT [Catalytic activity/Vol] 12 U/L Low 16 - 63 [facility] Comment on above: Performed By: #### 2 16864 #### [facility],[address] [place] [address]172 Anion gap [Moles/Vol] 14 mmol/L Normal 10 - 20 [facility] Comment on above: Performed By: #### 2 07790 #### [facility],[address] [place] [address]276 AST [Catalytic activity/Vol] 20 U/L Normal 15 - 37 [facility] Comment on above: Performed By: #### 2 21952 #### [facility],[address] [place] [address]62 B/C RATIO 13 ratio Normal 0 - 30 [facility] Comment on above: Performed By: #### 2 82563 #### [facility],[address] [place] [address] Bilirubin [Mass/Vol] 1.4 mg/dL High 0.2 - 1.0 [facility] Comment on above: Performed By: #### 2 83027 #### [facility],[address] [place] [address]842 Calcium [Mass/Vol] 9.2 mg/dL Normal 8.5 - 10.1 [facility] Comment on above: Performed By: #### 2 29852 #### [facility],[address] [place], [place] [phone] Chloride [Moles/Vol] 105 mmol/L Normal 98 - 107 [facility] Comment on above: Performed By: #### 2 46561 #### [facility],[address] [place], [place] [phone] CMP with eGFR Normal [facility] Comment on above: Result Comment: COMP REHENSIVE METABOLIC PANEL Performed By: #### 2 86563 #### [facility],[address] [place] [address] CO2 [Moles/Vol] 26.8 mmol/L Normal 21.0 - 32.0 [facility] Comment on above: Performed By: #### 2 58697 #### [facility],[address] [place], [place] [phone] Creatinine [Mass/Vol] 1.49 mg/dL High 0.70 - 1.30 [facility] Comment on above: Performed By: #### 2 75082 #### [facility],[address] [place] [address]407 eGFR 45 ML/MINUTE Low 60 - 999 [facility] Comment on above: Performed By: #### 2 51135 #### [facility],[address] [place] [address]209 eGFR(AA) 55 ML/MINUTE Low 60 - 999 [facility] Comment on above: Result Comment: ACCO RDING TO THE NATIONAL KIDNEY DISEASE EDUCATION PROGRAM(NKDE), A NORMAL eGFR IS A VALUE GREATER THAN OR EQUAL TO 60 ML/MIN/1.73 SQ METERS. CHRONIC KIDNEY DISEASE: <60mL/MIN/1.73 SQ METERS KIDNEY FAILURE: <15mL/MIN/1.73 SQ METERS THIS TEST SHOULD ONLY BE USED FOR PATIENTS 18 YEARS OF AGE AND OLDER. Performed By: #### 2 22583 #### [facility],[address] [place] [address] Globulin (S) [Mass/Vol] 3.7 g/dL Normal 1.5 - 3.8 [facility] Comment on above: Performed By: #### 2 68819 #### [facility],[address] [place] [address]146 Glucose [Mass/Vol] 141 mg/dL High 74 - 106 [facility] Comment on above: Performed By: #### 2 24186 #### [facility],[address] [place] [address] Potassium [Moles/Vol] 3.8 mmol/L Normal 3.5 - 5.1 [facility] Comment on above: Performed By: #### 2 27717 #### [facility],[address] [place] [address] 02005 Protein [Mass/Vol] 7.2 g/dL Normal 6.4 - 8.2 [facility] Comment on above: Performed By: #### 2 26744 #### [facility],[address] [place] [address]351 Sodium [Moles/Vol] 142 mmol/L Normal 136 - 145 [facility] Comment on above: Performed By: #### 2 03107 #### [facility],[address] [place] [address] Urea nitrogen [Mass/Vol] 20 mg/dL High 7 - 18 [facility] Comment on above: Performed By: #### 2 83468 #### [facility],[address] [place] [address]328 HEMOGLOBIN A1C (POM)on 04-21 Glucose [Mass/Vol] 145.6 mg/dL High 0.0 - 0.0 [facility] Comment on above: Result Comment: BLDo HEMOGLOBIN A1C REFERENCE RANGESBLDo Suggested Diagnosis HbA1c(%) HbA1C (mmol/mol Diabetic >/=6.5 >/=48 Prediabetes 5.7 - 6.4 39 - 47 Normal <5.7 <39 Performed By: #### 2 69297 #### [facility],[address] [place] [address] HbA1c (Bld) [Mass fraction] 6.7 % High 0.0 - 6.5 [facility] Comment on above: Performed By: #### 2 18872 #### [facility],[address] [place] [address] LIPID PROFILEon 04-21-2024 Cholesterol [Mass/Vol] 110 mg/dL Normal 0 - 240 [facility] Comment on above: Performed By: #### 2 84277 #### [facility],[address] [place] [address]165 Cholesterol in HDL [Mass/Vol] 31 mg/dL Low 40 - 60 [facility] Comment on above: Performed By: #### 2 62662 #### [facility],[address] [place] [address] Cholesterol in LDL [Mass/Vol] 41 mg/dL Normal 0 - 129 [facility] Comment on above: Performed By: #### 2 13832 #### [facility],[address] [place] [address]307 Cholesterol.total/Cho lesterol in HDL [Mass ratio] 3.5 {ratio} Normal 0.0 - 5.0 [facility] Comment on above: Performed By: #### 2 36395 #### [facility],[address] [place] [address] 19893 Lipid 1996 panel Normal [facility] Comment on above: Result Comment: LIPI D PROFILE Performed By: #### 2 24971 #### [facility],[address] [place] [address] Triglyceride [Mass/Vol] 189 mg/dL High 0 - 150 [facility] Comment on above: Performed By: #### 2 33629 #### [facility],[address] [place] [address]643 TSHon 04-21-2024 TSH Qn 1.80 m[IU]/L Normal 0.35 - 3.74 [facility] Comment on above: Performed By: #### 2 80302 #### [facility],[address] [place] [address] VITAMIN D, 25 HYDROXYon 04-08 VitD 30.60 ng/mL Normal 30.00 - 100 [facility] Comment on above: Result Comment: 25-O [...] D2 Not Established Performed By: #### 2 83066 #### [facility],[address] [place] [address]249 BMP with eGFRon 04-20-2024 AGE 79 years Normal [facility] Comment on above: Performed By: #### 2 85054 #### [address] [address] Anion gap [Moles/Vol] 14 mmol/L Normal 10 - 20 [facility] Comment on above: Performed By: #### 2 68253 #### [address] [address] BMP with eGFR Normal [facility] Comment on above: Result Comment: BASI C METABOLIC PANEL Performed By: #### 2 91678 #### [address] [address] Calcium [Mass/Vol] 8.7 mg/dL Normal 8.5 - 10.1 [facility] Comment on above: Performed By: #### 2 82143 #### [address] [address] Chloride [Moles/Vol] 107 mmol/L Normal 98 - 107 [facility] Comment on above: Performed By: #### 2 70390 #### [facility],[address] [place] [address] CO2 [Moles/Vol] 26.9 mmol/L Normal 21.0 - 32.0 [facility] Comment on above: Performed By: #### 2 16772 #### [facility],[address] [place] [address] Creatinine [Mass/Vol] 1.43 mg/dL High 0.70 - 1.30 [facility] Comment on above: Performed By: #### 2 93948 #### [facility],[address] [place] [address] 12897 eGFR 48 ML/MINUTE Low 60 - 999 [facility] Comment on above: Performed By: #### 2 96142 #### [facility],[address] [place] [address] eGFR(AA) 58 ML/MINUTE Low 60 - 999 [facility] Comment on above: Result Comment: ACCO RDING TO THE NATIONAL KIDNEY DISEASE EDUCATION PROGRAM(NKDE), A NORMAL eGFR IS A VALUE GREATER THAN OR EQUAL TO 60 ML/MIN/1.73 SQ METERS. CHRONIC KIDNEY DISEASE: <60mL/MIN/1.73 SQ METERS KIDNEY FAILURE: <15mL/MIN/1.73 SQ METERS THIS TEST SHOULD ONLY BE USED FOR PATIENTS 18 YEARS OF AGE AND OLDER. Performed By: #### 2 95981 #### [facility],[address] [place] [address] Glucose [Mass/Vol] 152 mg/dL High 74 - 106 [facility] Comment on above: Performed By: #### 2 96968 #### [facility],[address] [place] [address] Potassium [Moles/Vol] 3.8 mmol/L Normal 3.5 - 5.1 [facility] Comment on above: Performed By: #### 2 41227 #### [facility],[address] [facility] [address] Sodium [Moles/Vol] 144 mmol/L Normal 136 - 145 [facility] Comment on above: Performed By: #### 2 38872 #### [facility],[address] [facility] [address] Urea nitrogen [Mass/Vol] 21 mg/dL High 7 - 18 [facility] Comment on above: Performed By: #### 2 60970 #### [facility],[address] [place] [address] Bedside Glucoseon 04-18-2024 FINGERSTICK GLU 150 mg/dL High 74-106 [facility] Comment on above: Result Comment: DAVID REED OF PATIENT CARE PER NURSING PROTOCOL Performed By: #### L 500.4050, L100.0100 #### [facility] [address] [place], [address] Basic Metabolic Profile (BMP )on 04-17-2024 BUN/CRE 17.5 RATIO Normal 10-20 [facility] Comment on above: Performed By: #### L 500.4050, L100.0100 #### [facility] [address] [place], [address] CA,Total 8.9 mg/dL Normal 8.5-10.1 [facility] Comment on above: Performed By: #### L 500.4050, L100.0100 #### [facility] [address] [place], [address] Chloride [Moles/Vol] 107 mmol/L Normal 98-107 [facility] Comment on above: Performed By: #### L 500.4050, L100.0100 #### [facility] [address] [place], [address] CO2 [Moles/Vol] 26.0 mmol/L Normal 21.0-32.0 [facility] Comment on above: Performed By: #### L 500.4050, L100.0100 #### [facility] [address] [place], [address] Creatinine [Mass/Vol] 1.54 mg/dL High 0.70-1.30 [facility] Comment on above: Result Comment: The validity of the calculated GFR GFRAA in patients over 70 years has not been determined. Clinical correlation is essential. Performed By: #### L 500.4050, L100.0100 #### [facility] [address] [place], [address] ECRCL 43.21 ml/min Normal [facility] Comment on above: Performed By: #### L 500.4050, L100.0100 #### [facility] [address] [place], [address] EST GFR - AA 56 mL/min Low >60 [facility] Comment on above: Result Comment: Afri can [place] GFR Calc Performed By: #### L 500.4050, L100.0100 #### [facility] [address] [place], [address] GAP 6 Normal 5-15 [facility] Comment on above: Performed By: #### L 500.4050, L100.0100 #### [facility] [address] [place], [address] GFR/1.73 sq M.predicted among non-blacks MDRD (S/P/Bld) [Vol rate/Area] 47 mL/min/{1.73_m2} Low >60 [facility] Comment on above: Result Comment: Non- GFR Calc Performed By: #### L 500.4050, L100.0100 #### [facility] [address] [place], [address] Glucose [Mass/Vol] 136 mg/dL High 74-106 [facility] Comment on above: Result Comment: Fast ing Glucose result greater than or equal to 126 mg/dL suggests DIABETES MELLITUS per A.D.A. criteria. Performed By: #### L 500.4050, L100.0100 #### [facility] [address] [place], [address] Potassium [Moles/Vol] 3.6 mmol/L Normal 3.5-5.1 [facility] Comment on above: Performed By: #### L 500.4050, L100.0100 #### [facility] [address] [place], [address] Sodium [Moles/Vol] 139 mmol/L Normal 136-145 [facility] Comment on above: Performed By: #### L 500.4050, L100.0100 #### [facility] [address] [place], [address] Urea nitrogen [Mass/Vol] 27 mg/dL High 7-18 [facility] Comment on above: Performed By: #### L 500.4050, L100.0100 #### [facility] [address] [place], [address] Bedside Glucoseon 04-17-2024 FINGERSTICK GLU 179 mg/dL High 74-106 [facility] Comment on above: Result Comment: DAVID GEMENT OF PATIENT CARE PER NURSING PROTOCOL Performed By: #### L 500.4050, L100.0100 #### [facility] [address] [place], [address] FINGERSTICK GLU 164 mg/dL High 74-106 [facility] Comment on above: Result Comment: DAVID GEMENT OF PATIENT CARE PER NURSING PROTOCOL Performed By: #### L 501.080 #### [facility] [address] [place], [address] FINGERSTICK GLU 125 mg/dL High 74-106 [facility] Comment on above: Result Comment: DAVID GEMENT OF PATIENT CARE PER NURSING PROTOCOL Performed By: #### L 500.4050, L100.0100 #### [facility] [address] [place], [address] Basic Metabolic Profile (BMP )on 04-16-2024 BUN/CRE 18.2 RATIO Normal 10-20 [facility] Comment on above: Performed By: #### L 500.4050, L100.0100 #### [facility] [address] [place], [address] CA,Total 9.0 mg/dL Normal 8.5-10.1 [facility] Comment on above: Performed By: #### L 500.4050, L100.0100 #### [facility] [address] [place], [address] Chloride [Moles/Vol] 106 mmol/L Normal 98-107 [facility] Comment on above: Performed By: #### L 500.4050, L100.0100 #### [facility] [address] [place], [address] CO2 [Moles/Vol] 29.0 mmol/L Normal 21.0-32.0 [facility] Comment on above: Performed By: #### L 500.4050, L100.0100 #### [facility] [address] [place], [address] Creatinine [Mass/Vol] 1.87 mg/dL High 0.70-1.30 [facility] Comment on above: Result Comment: The validity of the calculated GFR GFRAA in patients over 70 years has not been determined. Clinical correlation is essential. Performed By: #### L 500.4050, L100.0100 #### [facility] [address] [place], [address] ECRCL 35.58 ml/min Normal [facility] Comment on above: Performed By: #### L 500.4050, L100.0100 #### [facility] [address] [place], [address] EST GFR - AA 45 mL/min Low >60 [facility] Comment on above: Result Comment: Afri can [place] GFR Calc Performed By: #### L 500.4050, L100.0100 #### [facility] [address] [place], [address] GAP 4 Low 5-15 [facility] Comment on above: Performed By: #### L 500.4050, L100.0100 #### [facility] [address] [place], [address] GFR/1.73 sq M.predicted among non-blacks MDRD (S/P/Bld) [Vol rate/Area] 37 mL/min/{1.73_m2} Low >60 [facility] Comment on above: Result Comment: Non- GFR Calc Performed By: #### L 500.4050, L100.0100 #### [facility] [address] [place], [address] Glucose [Mass/Vol] 131 mg/dL High 74-106 [facility] Comment on above: Result Comment: Fast ing Glucose result greater than or equal to 126 mg/dL suggests DIABETES MELLITUS per A.D.A. criteria. Performed By: #### L 500.4050, L100.0100 #### [facility] [address] [place], [address] Potassium [Moles/Vol] 4.0 mmol/L Normal 3.5-5.1 [facility] Comment on above: Performed By: #### L 500.4050, L100.0100 #### [facility] [address] [place], [address] Sodium [Moles/Vol] 139 mmol/L Normal 136-145 [facility] Comment on above: Performed By: #### L 500.4050, L100.0100 #### [facility] [address] [place], [address] Urea nitrogen [Mass/Vol] 34 mg/dL High 7-18 [facility] Comment on above: Performed By: #### L 500.4050, L100.0100 #### [facility] [address] [place], [address] Bedside Glucoseon 04-16-2024 FINGERSTICK GLU 124 mg/dL High 74-106 [facility] Comment on above: Result Comment: DAVID GEMENT OF PATIENT CARE PER NURSING PROTOCOL Performed By: #### L 500.4050, L100.0100 #### [facility] [address] [place], [address] FINGERSTICK GLU 180 mg/dL High 74-106 [facility] Comment on above: Result Comment: DAVID GEMENT OF PATIENT CARE PER NURSING PROTOCOL Performed By: #### L 501.080 #### [facility] [address] [place], [address] FINGERSTICK GLU 185 mg/dL High 74-106 [facility] Comment on above: Result Comment: DAVID GEMENT OF PATIENT CARE PER NURSING PROTOCOL Performed By: #### L 500.4050, L100.0100 #### [facility] [address] [place], [address] FINGERSTICK GLU 141 mg/dL High 74-106 [facility] Comment on above: Result Comment: DAVID GEMENT OF PATIENT CARE PER NURSING PROTOCOL Performed By: #### L 500.4050, L100.0100 #### [facility] [address] [place], [address] CBC-Complete Blood Cnt No Di ffon 04-16-2024 Erythrocyte distribution width (RBC) [Ratio] 13.8 % Normal 11.6-14.6 [facility] Comment on above: Performed By: #### L 500.4050, L100.0100 #### [facility] [address] [place], [address] Hematocrit (Bld) [Volume fraction] 43.7 % Normal 40-54 [facility] Comment on above: Performed By: #### L 500.4050, L100.0100 #### [facility] [address] [place], [id number] Hemoglobin (Bld) [Mass/Vol] 14.3 g/dL Normal 13.0-16.5 [facility] Comment on above: Performed By: #### L 500.4050, L100.0100 #### [facility] [address] [place], [id number] MCH (RBC) [Entitic mass] 31.3 pg Normal 27.0-32.0 [facility] Comment on above: Performed By: #### L 500.4050, L100.0100 #### [facility] [address] [place], [id number] MCHC (RBC) [Mass/Vol] 32.7 g/dL Normal 32-36 [facility] Comment on above: Performed By: #### L 500.4050, L100.0100 #### [facility] [address] [place], [id number] MCV (RBC) [Entitic vol] 95.6 fL High 80-94 [facility] Comment on above: Performed By: #### L 500.4050, L100.0100 #### [facility] [address] [place], [id number] Platelet mean volume (Bld) [Entitic vol] 10.6 fL Normal 6.2-12.0 [facility] Comment on above: Performed By: #### L 500.4050, L100.0100 #### [facility] [address] [place], [id number] Platelets (Bld) [#/Vol] 126 10*3/uL Low 150-450 [facility] Comment on above: Performed By: #### L 500.4050, L100.0100 #### [facility] [address] [place], [id number] RBC (Bld) [#/Vol] 4.57 10*6/uL Low 4.6-6.2 [facility] Comment on above: Performed By: #### L 500.4050, L100.0100 #### [facility] [address] [place], [address] RDW SD 48.6 fl High 35.1-43.9 [facility] Comment on above: Performed By: #### L 500.4050, L100.0100 #### [facility] [address] [place], [id number] WBC (Bld) [#/Vol] 6.0 10*3/uL Normal 4.4-11.0 [facility] Comment on above: Performed By: #### L 500.4050, L100.0100 #### [facility] [address] [place], [address] Bedside Glucoseon 04-15-2024 FINGERSTICK GLU 205 mg/dL High 74-106 [facility] Comment on above: Result Comment: DAVID GEMENT OF PATIENT CARE PER NURSING PROTOCOL Performed By: #### L 501.080 #### [facility] [address] [place], [address] FINGERSTICK GLU 149 mg/dL High 74-106 [facility] Comment on above: Result Comment: DAVID GEMENT OF PATIENT CARE PER NURSING PROTOCOL Performed By: #### L 500.4050, L100.0100 #### [facility] [address] [place], [address] FINGERSTICK GLU 218 mg/dL High 74-106 [facility] Comment on above: Result Comment: DAVID GEMENT OF PATIENT CARE PER NURSING PROTOCOL Performed By: #### L 500.4050, L100.0100 #### [facility] [address] [place], [id number] FINGERSTICK GLU 155 mg/dL High 74-106 [facility] Comment on above: Result Comment: DAVID REED OF PATIENT CARE PER NURSING PROTOCOL Performed By: #### L 500.4050, L100.0100 #### [facility] [address] [place], [id number] CBC W/Diff, Automatedon 01-0 8-2024 Absolute Lymph 1.49 X10 3/uL Normal 0.83-4.51 [facility] Comment on above: Performed By: #### L 500.4050, L100.0100 #### [facility] [address] [place], [address] Absolute Neut 4.0 X10 3/uL Normal 2.0-7.7 [facility] Comment on above: Performed By: #### L 500.4050, L100.0100 #### [facility] [address] [place], [id number] Basophils/100 WBC (Bld) 0.5 % Normal 0-1 [facility] Comment on above: Performed By: #### L 500.4050, L100.0100 #### [facility] [address] [place], [address] Eosinophils/100 WBC (Bld) 5.6 % High 0-5 [facility] Comment on above: Performed By: #### L 500.4050, L100.0100 #### [facility] [address] [place], [address] Erythrocyte distribution width (RBC) [Ratio] 13.7 % Normal 11.6-14.6 [facility] Comment on above: Performed By: #### L 500.4050, L100.0100 #### [facility] [address] [place], [address] Hematocrit (Bld) [Volume fraction] 44.1 % Normal 40-54 [facility] Comment on above: Performed By: #### L 500.4050, L100.0100 #### [facility] [address] [place], [id number] Hemoglobin (Bld) [Mass/Vol] 14.5 g/dL Normal 13.0-16.5 [facility] Comment on above: Performed By: #### L 500.4050, L100.0100 #### [facility] [address] [place], [id number] IG% 0.300 Normal 0.0-0.9 [facility] Comment on above: Result Comment: IG% - Immature Granulocytes (promyelocytes, myelocytes and metamyelocytes) > 1% indicates that a LEFT SHIFT is Present. Performed By: #### L 500.4050, L100.0100 #### [facility] [address] [place], [address] Lymphocytes/100 WBC (Bld) 22.4 % Normal 19-41 [facility] Comment on above: Performed By: #### L 500.4050, L100.0100 #### [facility] [address] [place], [address] MCH (RBC) [Entitic mass] 31.0 pg Normal 27.0-32.0 [facility] Comment on above: Performed By: #### L 500.4050, L100.0100 #### [facility] [address] [place], [id number] MCHC (RBC) [Mass/Vol] 32.9 g/dL Normal 32-36 [facility] Comment on above: Performed By: #### L 500.4050, L100.0100 #### [facility] [address] [place], [id number] MCV (RBC) [Entitic vol] 94.4 fL High 80-94 [facility] Comment on above: Performed By: #### L 500.4050, L100.0100 #### [facility] [address] [place], [address] Monocytes/100 WBC (Bld) 11.6 % High 0-10 [facility] Comment on above: Performed By: #### L 500.4050, L100.0100 #### [facility] [address] [place], [address] Neutrophils/100 WBC (Bld) 59.6 % Normal 47-70 [facility] Comment on above: Performed By: #### L 500.4050, L100.0100 #### [facility] [address] [place], [id number] Nucleated RBC (Bld) [#/Vol] 0 10*3/uL Normal 0-5 [facility] Comment on above: Performed By: #### L 500.4050, L100.0100 #### [facility] [address] [place], [address] Platelet mean volume (Bld) [Entitic vol] 10.2 fL Normal 6.2-12.0 [facility] Comment on above: Performed By: #### L 500.4050, L100.0100 #### [facility] [address] [place], [address] Platelets (Bld) [#/Vol] 130 10*3/uL Low 150-450 [facility] Comment on above: Performed By: #### L 500.4050, L100.0100 #### [facility] [address] [place], [address] RBC (Bld) [#/Vol] 4.67 10*6/uL Normal 4.6-6.2 [facility] Comment on above: Performed By: #### L 500.4050, L100.0100 #### [facility] [address] [place], [address] RDW SD 47.8 fl High 35.1-43.9 [facility] Comment on above: Performed By: #### L 500.4050, L100.0100 #### [facility] [address] [place], [address] WBC (Bld) [#/Vol] 6.7 10*3/uL Normal 4.4-11.0 [facility] Comment on above: Performed By: #### L 500.4050, L100.0100 #### [facility] [address] [place], [address] Comprehensive Metabolic Prof ilon 04-15-2024 Albumin [Mass/Vol] 3.2 g/dL Normal 3.2-5.0 [facility] Comment on above: Performed By: #### L 500.4050, L100.0100 #### [facility] [address] [place], [address] Albumin/Globulin [Mass ratio] 1.0 {ratio} Normal 0.9-2.4 [facility] Comment on above: Performed By: #### L 500.4050, L100.0100 #### [facility] [address] [place], [address] ALK P 92 U/L Normal 45-117 [facility] Comment on above: Performed By: #### L 500.4050, L100.0100 #### [facility] [address] [place], [address] ALT [Catalytic activity/Vol] 20 U/L Normal 16-61 [facility] Comment on above: Performed By: #### L 500.4050, L100.0100 #### [facility] [address] [place], [address] AST [Catalytic activity/Vol] 12 U/L Low 15-37 [facility] Comment on above: Performed By: #### L 500.4050, L100.0100 #### [facility] [address] [place], [address] Bilirubin [Mass/Vol] 1.90 mg/dL High 0.20-1.00 [facility] Comment on above: Result Comment: For patients on eltrombopag therapy, use of Dimension [place] TBIL is not recommended. Performed By: #### L 500.4050, L100.0100 #### [facility] [address] [place], [address] BUN/CRE 16.8 RATIO Normal 10-20 [facility] Comment on above: Performed By: #### L 500.4050, L100.0100 #### [facility] [address] [place], [address] CA,Total 9.1 mg/dL Normal 8.5-10.1 [facility] Comment on above: Performed By: #### L 500.4050, L100.0100 #### [facility] [address] [place], [address] Chloride [Moles/Vol] 108 mmol/L High 98-107 [facility] Comment on above: Performed By: #### L 500.4050, L100.0100 #### [facility] [address] [place], [address] CO2 [Moles/Vol] 27.0 mmol/L Normal 21.0-32.0 [facility] Comment on above: Performed By: #### L 500.4050, L100.0100 #### [facility] [address] [place], [address] Creatinine [Mass/Vol] 1.55 mg/dL High 0.70-1.30 [facility] Comment on above: Result Comment: The validity of the calculated GFR GFRAA in patients over 70 years has not been determined. Clinical correlation is essential. Performed By: #### L 500.4050, L100.0100 #### [facility] [address] [place], [address] ECRCL 42.93 ml/min Normal [facility] Comment on above: Performed By: #### L 500.4050, L100.0100 #### [facility] [address] [place], [address] EST GFR - AA 56 mL/min Low >60 [facility] Comment on above: Result Comment: Afri can [place] GFR Calc Performed By: #### L 500.4050, L100.0100 #### [facility] [address] [place], [address] GAP 5 Normal 5-15 [facility] Comment on above: Performed By: #### L 500.4050, L100.0100 #### [facility] [address] [place], [address] GFR/1.73 sq M.predicted among non-blacks MDRD (S/P/Bld) [Vol rate/Area] 46 mL/min/{1.73_m2} Low >60 [facility] Comment on above: Result Comment: Non- GFR Calc Performed By: #### L 500.4050, L100.0100 #### [facility] [address] [place], [address] Globulin (S) [Mass/Vol] 3.2 g/dL Normal 2.2-4.2 [facility] Comment on above: Performed By: #### L 500.4050, L100.0100 #### [facility] [address] [place], [address] Glucose [Mass/Vol] 143 mg/dL High 74-106 [facility] Comment on above: Result Comment: Fast ing Glucose result greater than or equal to 126 mg/dL suggests DIABETES MELLITUS per A.D.A. criteria. Performed By: #### L 500.4050, L100.0100 #### [facility] [address] [place], [address] Potassium [Moles/Vol] 3.9 mmol/L Normal 3.5-5.1 [facility] Comment on above: Performed By: #### L 500.4050, L100.0100 #### [facility] [address] [place], [address] Sodium [Moles/Vol] 140 mmol/L Normal 136-145 [facility] Comment on above: Performed By: #### L 500.4050, L100.0100 #### [facility] [address] [place], [address] T PROT 6.4 g/dL Normal 6.4-8.2 [facility] Comment on above: Performed By: #### L 500.4050, L100.0100 #### [facility] [address] [place], [address] Urea nitrogen [Mass/Vol] 26 mg/dL High 7-18 [facility] Comment on above: Performed By: #### L 500.4050, L100.0100 #### [facility] [address] [place], [address] 12 Lead EKGon 04-14-2024 12 Lead EKG [facility] [address] [place] [address] 12 Lead EKG 04/14/24 1459 MR#: [id number] Acct: [id number] Name: KIMBERLY NAVA Rep #: [id number] : 1945 79 From: Vikash Quintana MD [...] 15-May-2007) Abnormal ECG Confirmed by Vikash Quintana ([id number]), editor managing newspaper ENRIQUE METZGER ([id number]) on 04/15/2024 8:26:27 AM Referred By: Confirmed By: Vikash Quintana 04/15/24825 Date Vikash Quintana MD CC: Dr. Buddy Andrews MD; Dr. Kobi Adair MD; Dr. Toshia Pro MD Signed Normal [facility] Basic Metabolic Profile (BMP )on 04-14-2024 BUN/CRE 15.3 RATIO Normal 10-20 [facility] Comment on above: Performed By: #### L 500.2500, L100.0100 #### [facility] [address] [facility] [place], [address] CA,Total 8.7 mg/dL Normal 8.5-10.1 [facility] Comment on above: Performed By: #### L 500.2500, L100.0100 #### [facility] [address] [facility] [place], [address] Chloride [Moles/Vol] 106 mmol/L Normal 98-107 [facility] Comment on above: Performed By: #### L 500.2500, L100.0100 #### [facility] [address] [facility] [place], [address] CO2 [Moles/Vol] 26.0 mmol/L Normal 21.0-32.0 [facility] Comment on above: Performed By: #### L 500.2500, L100.0100 #### [facility] [address] [place], [address] Creatinine [Mass/Vol] 1.70 mg/dL High 0.70-1.30 [facility] Comment on above: Result Comment: The validity of the calculated GFR GFRAA in patients over 70 years has not been determined. Clinical correlation is essential. Performed By: #### L 500.2500, L100.0100 #### [facility] [address] [place], [address] ECRCL 40.90 ml/min Normal [facility] Comment on above: Performed By: #### L 500.2500, L100.0100 #### [facility] [address] [place], [address] EST GFR - AA 50 mL/min Low >60 [facility] Comment on above: Result Comment: Afri can [place] GFR Calc Performed By: #### L 500.2500, L100.0100 #### [facility] [address] [place], [address] GAP 6 Normal 5-15 [facility] Comment on above: Performed By: #### L 500.2500, L100.0100 #### [facility] [address] [place], [address] GFR/1.73 sq M.predicted among non-blacks MDRD (S/P/Bld) [Vol rate/Area] 42 mL/min/{1.73_m2} Low >60 [facility] Comment on above: Result Comment: Non- GFR Calc Performed By: #### L 500.2500, L100.0100 #### [facility] [address] [place], [address] Glucose [Mass/Vol] 194 mg/dL High 74-106 [facility] Comment on above: Result Comment: Fast ing Glucose result greater than or equal to 126 mg/dL suggests DIABETES MELLITUS per A.D.A. criteria. Performed By: #### L 500.2500, L100.0100 #### [facility] [address] [place], [address] Potassium [Moles/Vol] 3.7 mmol/L Normal 3.5-5.1 [facility] Comment on above: Performed By: #### L 500.2500, L100.0100 #### [facility] [address] [place], [address] Sodium [Moles/Vol] 138 mmol/L Normal 136-145 [facility] Comment on above: Performed By: #### L 500.2500, L100.0100 #### [facility] [address] [place], [address] Urea nitrogen [Mass/Vol] 26 mg/dL High 7-18 [facility] Comment on above: Performed By: #### L 500.2500, L100.0100 #### [facility] [address] [place], [address] Bedside Glucoseon - FINGERSTICK GLU 188 mg/dL High 74-106 [facility] Comment on above: Result Comment: DAVID GEMENT OF PATIENT CARE PER NURSING PROTOCOL Performed By: #### L 501.080 #### [facility] [address] [place], [address] FINGERSTICK GLU 106 mg/dL Normal 74-106 [facility] Comment on above: Result Comment: DAVID GEMENT OF PATIENT CARE PER NURSING PROTOCOL Performed By: #### L 501.080 #### [facility] [address] [place], [address] CBC W/Diff, Automatedon - Absolute Lymph 1.32 X10 3/uL Normal 0.83-4.51 [facility] Comment on above: Performed By: #### L 500.2500, L100.0100 #### [facility] [address] [place], [address] Absolute Neut 4.1 X10 3/uL Normal 2.0-7.7 [facility] Comment on above: Performed By: #### L 500.2500, L100.0100 #### [facility] [address] [place], [address] Basophils/100 WBC (Bld) 0.5 % Normal 0-1 [facility] Comment on above: Performed By: #### L 500.2500, L100.0100 #### [facility] [address] [place], [address] Eosinophils/100 WBC (Bld) 4.9 % Normal 0-5 [facility] Comment on above: Performed By: #### L 500.2500, L100.0100 #### [facility] [address] [place], [address] Erythrocyte distribution width (RBC) [Ratio] 13.5 % Normal 11.6-14.6 [facility] Comment on above: Performed By: #### L 500.2500, L100.0100 #### [facility] [address] [place], [address] Hematocrit (Bld) [Volume fraction] 44.3 % Normal 40-54 [facility] Comment on above: Performed By: #### L 500.2500, L100.0100 #### [facility] [address] [place], [address] Hemoglobin (Bld) [Mass/Vol] 14.7 g/dL Normal 13.0-16.5 [facility] Comment on above: Performed By: #### L 500.2500, L100.0100 #### [facility] [address] [place], [address] IG% 0.300 Normal 0.0-0.9 [facility] Comment on above: Result Comment: IG% - Immature Granulocytes (promyelocytes, myelocytes and metamyelocytes) > 1% indicates that a LEFT SHIFT is Present. Performed By: #### L 500.2500, L100.0100 #### [facility] [address] [place], [address] Lymphocytes/100 WBC (Bld) 20.7 % Normal 19-41 [facility] Comment on above: Performed By: #### L 500.2500, L100.0100 #### [facility] [address] [place], [address] MCH (RBC) [Entitic mass] 31.1 pg Normal 27.0-32.0 [facility] Comment on above: Performed By: #### L 500.2500, L100.0100 #### [facility] [address] [place], [address] MCHC (RBC) [Mass/Vol] 33.2 g/dL Normal 32-36 [facility] Comment on above: Performed By: #### L 500.2500, L100.0100 #### [facility] [address] [place], [address] MCV (RBC) [Entitic vol] 93.9 fL Normal 80-94 [facility] Comment on above: Performed By: #### L 500.2500, L100.0100 #### [facility] [address] [place], [address] Monocytes/100 WBC (Bld) 10.0 % Normal 0-10 [facility] Comment on above: Performed By: #### L 500.2500, L100.0100 #### [facility] [address] [place], [address] Neutrophils/100 WBC (Bld) 63.6 % Normal 47-70 [facility] Comment on above: Performed By: #### L 500.2500, L100.0100 #### [facility] [address] [place], [address] Nucleated RBC (Bld) [#/Vol] 0 10*3/uL Normal 0-5 [facility] Comment on above: Performed By: #### L 500.2500, L100.0100 #### [facility] [address] [place], [address] Platelet mean volume (Bld) [Entitic vol] 10.4 fL Normal 6.2-12.0 [facility] Comment on above: Performed By: #### L 500.2500, L100.0100 #### [facility] [address] [place], [address] Platelets (Bld) [#/Vol] 129 10*3/uL Low 150-450 [facility] Comment on above: Performed By: #### L 500.2500, L100.0100 #### [facility] [address] [place], [address] RBC (Bld) [#/Vol] 4.72 10*6/uL Normal 4.6-6.2 [facility] Comment on above: Performed By: #### L 500.2500, L100.0100 #### [facility] [address] [place], [address] RDW SD 46.1 fl High 35.1-43.9 [facility] Comment on above: Performed By: #### L 500.2500, L100.0100 #### [facility] [address] [place], [address] WBC (Bld) [#/Vol] 6.4 10*3/uL Normal 4.4-11.0 [facility] Comment on above: Performed By: #### L 500.2500, L100.0100 #### [facility] [address] [place], [address] Emergency Department Summary on 04-14-2024 Emergency Department Summary [facility] Medical Records Department [address] [place] [address] Emergency Department Summary 04/14/24 MR#: [id number] Acct: [id number] Name: KIMBERLY NAVA Rep #: [id number] : 1945 79 From: Buddy Andrews MD [...] ambulate and continued left lower extremity pain. [facility] Medical History (Updated 04/14/24 @ 15:01 by [...] PO BID 04/14/24 04/14/24 History mg-copper 1 dq-mkckru-iojfde capsule (PreserVision AREDS-2) Allergy/AdvReac Type Severity Reaction [...] No headaches, (more content not included)... Normal [facility] Extremity Lower without Cont raon 04-14-2024 Extremity Lower without Contra [facility] Imaging Services [address] [place], [place] [id number] Extremity Lower without Contra MR#: [id number] Acct: [id number] Name: KIMBERLY NAVA Rep #: [id number] : 1945 M 79 From: Christin turner MD PCP: Dr. Kobi Adair MD Status: REG ER Study: Extremity Lower without Contra Date of Exam: 0 04/14/24 Exam# [id number] Ordering Dr: Buddy Andrews MD [id number] HISTORY: Trauma, pain. TECHNIQUE: Helically acquired images [...] 13:30 EST Reading Location ID and State: [facility] / [place] Tel , Service support , CC: Dr. Buddy Andrews MD; Dr. Kobi Adair MD Sheet Music Salesperson: Signed Normal [facility] H AND P Exam - Hospitaliston 04-14-2024 H&P Exam - Hospitalist [facility] Medical Records Department [address] [place] [address] H P Exam - Hospitalist 04/14/24 1440 MR#: [id number] Acct: [id number] Name: KIMBERLY NAVA Rep #: [id number] : 1945 79 From: Liliane Lowe MD PCP: Dr. Kobi Adair MD Status:ADM IN Location: [facility] EC708-1 HPI - General General Date of Admission: [...] s/p MV repair who presents to the [facility] ED on 04/14/24 with history of mechanical [...] patient may be weight bearing as tolerated. [facility] Medical History Former tobacco use History of [...] PO BID 04/14/24 04/14/24 History mg-copper 1 bo-sydhtp-aecwfo capsule (PreserVision AREDS-2) Allergy/AdvRea (more content not included)... Normal [facility] HIP, UNI W/ Pelvis 2-3 Views on 04-14-2024 HIP, UNI W/ Pelvis 2-3 Views [facility] Imaging Services [address] [place] [address] HIP, UNI W/ Pelvis 2-3 Views MR#: [id number] Acct: [id number] Name: KIMBERLY NAVA Rep #: [id number] : 1945 M 79 From: Kimberly Howe MD PCP: Dr. Kobi Adair MD Status: REG ER Study: HIP, UNI W/ Pelvis 2-3 Views Date of Exam: 10/30 Exam# [id number] Ordering Dr: Buddy Andrews MD [id number] STUDY: X-RAY - PELVIS AND LEFT HIP [...] bilaterally. No demonstrated acute fracture. Electronically Signed: Kimberyl Howe MD at 12:13 EST Reading Location ID and State: [address] [place] [address] , Service support , CC: Dr. Buddy Andrews MD; Dr. Kobi Adair MD Sheet Music Salesperson: Signed Normal [facility] Magnesiumon 04-14-2024 Magnesium [Mass/Vol] 2.4 mg/dL Normal 1.6-2.6 [facility] Comment on above: Order Comment: Comme nts: may add to ED labs Performed By: #### L 501.5200 #### [facility] [address] [facility] [place], [address] Ribs Uni Min 3V w/PA Cheston 04-14-2024 Ribs Uni Min 3V w/PA Chest [facility] Imaging Services [address] [facility] [place], [place] [id number]) Ribs Uni Min 3V w/PA Chest MR#: [id number] Acct: [id number] Name: KIMBERLY NAVA Rep #: [id number] : 1945 M 79 From: Kimberly Howe MD PCP: Dr. Kobi Adair MD Status: REG ER Study: Ribs Uni Min 3V w/PA Chest Date of Exam: 04/14 Exam# [id number] Ordering Dr: Buddy Andrews MD [id number] STUDY: X-RAY - UNILATERAL RIBS ( LEFT [...] Buddy Andrews MD; Dr. Kobi Adair MD Sheet Music Salesperson: Signed [facility] 12-17-2023 [facility] Telephone (INTMWS) KIMBERLY NAVA ([id number]) 1945 M Date Time Provider Department 12/17/23 [...] [facility] but [facility] would not accept as it was signed by FIREAR[employer] SALES ASSOCIATE not MD. I instructed pt that he [...] mask for PAP therapy. He liked javon Krsitine View full face mask during titration study. Dx ANABELL - potassium chloride ER (K-DUR, KLOR-CON) 10 mEq tablet Take 1 tablet by mouth once daily. - CPAP Pressure change: Bilevel PAP 19/15 cmH2O. Please fax 30 day compliance download to [phone]. Dx: ANABELL, treatment emergent CSA - sertraline [...] of th (more content not included)... Normal [facility] CNOVon 10-28-2023 CNOV Office Visit (CAWSTR ) KIMBERLY NAVA ([id number]) 1945 M Date Time Provider Department 10/28/23 9:40 AM SRIRAM VALLES During your visit today, we recorded the following information about you: Pulse Blood pressure Weight Height 89/minute 133/84 109.1 kg 1.676 m Sriram Valles MD 10/28/2023 10:10 AM Signed Sriram Valles MD Interventional Cardiology [address] [place] [phone] Chief Complaint Patient presents with: Follow Up [...] (BMI 30-39.9) Obstructive sleep apnea Bipap, seeing [facility] - PAST MEDICAL HISTORY OF 2-08 [place] with quad. bypass and valve repair- DVT [...] of Onset None Mother 98 Heart Father [place] AGE 67 Diabetes Father Hypertension Brother Diabetes [...] 200 mcg (more content not included)... Normal [facility] [id number] 10-28-2023 ECG01 Ventricular Rate : 8 9 BPM Atrial Rate : 89 BPM P-R Interval : 162 ms QRS Duration : 84 ms Q-T Interval : 392 ms QTC Calculation(Bazett) : 476 ms Calculated P [place] : 24 degrees Calculated R [place] : -1 degrees Calculated T [place] : 58 degrees NORMAL SINUS RHYTHM POSSIBLE INFERIOR MYOCARDIAL INFARCTION , AGE UNDETERMINED ABNORMAL ECG Confirmed by BLAIR LEON DO ([id number]) on 10/29/2023 8:11:11 AM NAME : KAILEEKIMBERLY PID : [id number] : 1945 Gender : Male Race : ORD : Procedure Date : Oct 28 2023 09:51:50 Edit Date : Oct 29 2023 08:11:14 Diagnosis: NORMAL SINUS RHYTHM POSSIBLE INFERIOR MYOCARDIAL INFARCTION , AGE UNDETERMINED ABNORMAL ECG Confirmed by BLAIR LEON DO ([id number]) on 10/29/2023 8:11:11 AM Test Reason : Location : 136 : [facility] Overread By : BLAIR LEON DO Edited By : BLAIR LEON DO Referred By : SRIRAM VALLES Acquired by : Kelsey shi [facility] No Panel Informationon 07-09 [facility] CNNURSEon 07-13-2020 [facility] Nurse Visit (COVAMD) KIMBERLY NAVA ([id number]) 1945 M Date Time Provider Department 07/13/20 ELOY DASH) PEDRO LUIS During your visit today, we recorded the following information about you: Allergies As of Date: 07/13/2020 Noted Allergy Reaction INHALED ANESTHETICS (HALOGEN BASE*05/28/2007 MEVACOR (LOVASTATIN) 04/11/2007 Comments: Patient's tongue swelled Date Reviewed: 04/22/2020 Reviewed by: Fariha Dennis Ma - Fully Assessed Order(s):Care Thread SARS-COV-2 VACCINE 2D DOSE APPT [9019399] Order #: [id number] Prescriptions as of 07/13/2020 Sig: LOSARTAN 100 [...] S/P CABG x 4 [Z95.1] 11/10/2019 [facility] (AGCARDWST) ----KIMBERLY NAVA ([id number]) 1945 [facility] Time Provider Department08/20/17 1:30 PM JOVANY MORRISSEY [...] - metBeta ann for ASHD with prior [place] or prior LVEF<40 (NQF 0070) - metBeta [...] U-100 INSULIN) 100 unit/mL (3 mL) inpn Recezj42 Units subcutaneously once daily as directedlevothyroxine (SYNTHROID) 125 mcg tablet Take 1.5 tablets by mouth daily beforebreakfast. Total daily dose is 187 mcg. Fax updated dose to [phone] HFA (PROAIR HFA) 90 mcg/actuation inhaler Inhale [...] cmH2O. Please fax 30 day compliancedownload to [phone]. Dx: ANABELL, treatment emergent CSAsertraline (ZOLOFT) 50 [...] ejection fraction wasnormal.Electronically Signed:Jodi Hernandes2017 1:50 [facility]: Amy Guo MD 08/20/2017 1:50 PM SignedLIFESTYLE [...] programs in your area.Referring Provider: JOVANY MORRISSEY [[id number]]Allergies As of Date: 08/20/2017 Noted Allergy ReactionINHALED [...] the following areas and commit to making zoology teacher changes. EAT A WHOLE FOOD, PLANT BASED [...] Status:Closed by JOVANY MORRISSEY MD on 08/20/17 [facility] PROGRESSon 08-20-2017 PROGRESS HNO ID: [id number] thor: Jovany Sin: (none)Author Type: PhysicianType: Progress NotesFiled: 08/20/2017 2:30 PMNote Text:PERTINENT CARDIAC HISTORYASHD - CABGx4 2007, PCI 2011MR - MV repair 2008HTNHLHypomagnesemiaCHF - diastolicOSA - CPAPADHERENCE TO GUIDELINESACE-I or ARB for HF with prior LVEF<40 (NQF 0081) - metASA or Plavix for ASHD (NQF 0067) - metBeta ann for ASHD with prior [place] or prior LVEF<40 (NQF 0070) - metBeta [...] is 187 mcg. Fax updated dose to [facility] [phone] HFA (PROAIR HFA) 90 mcg/actuation inhaler Inhale [...] cmH2O. Please fax 30 daycompliance download to [phone]. Dx: ANABELL, treatment emergent CSAsertraline (ZOLOFT) 50 [...] ejectionfraction was normal.Electronically Signed:Jovany Morrissey, MDMa2017 1:50 [facility] Nikia Adair MD [facility] CNOVon 02-20-2017 [facility] Office Visit (AGCARDWST) ----KIMBERLY NAVA ([id number]) 1945 [facility] Xqasndftmr66/15/17 11:30 AM JOVANY MORRISSEYWSIssac During your visit [...] - metBeta ann for ASHD with prior [place] or prior LVEFANDlt;40 (NQF 0070) - metBeta [...] with treatment plan.This note was generated using [employer] voice recognition system, and there may besome [...] cmH2O. Please fax 30 day compliancedownload to [phone]. Dx: ANABELL, treatment emergent CSACPAP Please dispense [...] PMH - PAST MEDICAL HISTORY OF 2- [place] with quad. 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 Lives [place] MarriedREVIEW OF SYSTEMS: General: No chills, fever, [...] normal.Electronically Signed:Jovany Morrissey MDFebruary 20, 2017 11:51 [facility]:Amy ANTONIO MD 02/20/2017 11:57 AM SignedLIFESTYLE CHANGEA [...] programs in your area.Referring Provider: JOVANY MORRISSEY [[id number]]Allergies As of Date: 02/20/2017 Noted Allergy ReactionALBUTEROL 05/06/2007 12 - Shortness of BreathINHALED ANESTHETICS (HALOGEN BASE*05/28/2007MEVACOR (LOVASTATIN) 04/11/2007 Comments: Patient's tongue swelledDate Reviewed: 02/20/2017Reviewed by: Edwar Wright) STEPHON Fink - Fully AssessedReason for Visit: Follow Up [171] Cmt: 8 monthPrimary Visit Diagnosis:Hypertension, essential [I10] Other Visit Diagnoses:ASHD (arteriosclerotic heart disease) [I25.10] Chronic diastolic CHF (congestive heart failure) ([facility]) [I50.32]Order(s):ECG B/O W INTERP (MED OFFICE) [ECG06] Order #: [id number] NM CARDIAC PERF STRESS/PHARM [[id number]] Order #: [id number] FUTURE regadenoson (LEXISCAN) 0.4 mg/5 mL syrgInject 5 mL intravenously one time only for 1 dose. Give IV push over 10 seconds and follow with 5 ml of normal salineDisp: 5 mLRfl: 0 IV START - SPECIFY [[id number]] Order #: [id number]: 1 IV DISCONTINUE [[id number]] Order #: [id number]: 1Prescriptions as of 02/20/2017 Sig: LEVOTHYROXINE 200 [...] the following areas and commit to making jail changes. EAT A WHOLE FOOD, PLANT BASED [...] SmartForms filed during this visit:Extended VitalsEncounter Number: [id number] Status:Closed by JOVANY MORRISSEY MD on 02/20/17 [facility] PROGRESSon 02-20-2017 PROGRESS HNO ID: [id number] thor: Jovany Sin: (none)Author Type: PhysicianType: Progress NotesFiled: 02/20/2017 12:07 PMNote Text:PERTINENT CARDIAC HISTORYASHD - CABGx4 2007, PCI 2011MR - MV repair 2007HTNHLHypomagnesemiaCHF - diastolicOSA - CPAPADHERENCE TO GUIDELINESACE-I or ARB for HF with prior LVEF<40 (NQF 0081) - metASA or Plavix for ASHD (NQF 0067) - metBeta ann for ASHD with prior [place] or prior LVEF<40 (NQF 0070) - metBeta [...] with treatment plan.This note was generated using [employer] voice recognition system, and theremay be some [...] cmH2O. Please fax 30 daycompliance download to [phone]. Dx: ANABELL, treatment emergent CSACPAP Please dispense [...] PMH - PAST MEDICAL HISTORY OF 05-21-07 [place] with quad. bypass and valve repair- DVT after- Pure hypercholesterolemia- Restless leg syndrome- Rheum heart dis NEC/NOS CHILD Rheumatic fever- Sciatica- Sensorineural hearing loss, unspecified Sensorineural hearing loss- Stable angina (HCC)- Tobacco use disorder- Unspecified essential hypertension- Unspecified tinnitus TinnitusPAST SURGICAL HISTORYProcedure Laterality Date- COLONOSCOP W/ OR W/O [facility] SPEC 09/28/05- COLONOSCOP W/ OR W/O [facility] SPEC 04-12-15- HEMORRHOIDECTOMY,INT/EXT,COMP LX 04-20-15 Dr. 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 Kobi Adair MD Work Phone: [facility] 09-23-2024 20:06-0400 Diastolic blood pressure 95 mm[Hg] Dr. Kobi Adair MD Work Phone: [facility] 09-23-2024 20:06-0400 Heart rate 85 /min Dr. Kobi Adair MD Work Phone: [facility] 09-23-2024 20:06-0400 Respiratory rate 18 /min Dr. Kobi Adair MD Work Phone: [facility] 09-23-2024 20:06-0400 SaO2% (BldA) [Mass fraction] 96 % Dr. Kobi Adair MD Work Phone: [facility] 09-23-2024 20:06-0400 Systolic blood pressure 158 mm[Hg] Dr. Kobi Adair MD Work Phone: [facility] 09-23-2024 13:13-0400 Body height 170.[address] Kobi Adair MD Work Phone: [facility] 09-23-2024 13:13-0400 Body mass index (BMI) [Ratio] 35.7 kg/m2 Dr. Kobi Adair MD Work Phone: [facility] 09-23-2024 13:13-0400 Body weight 103.[address] Kobi Adair MD Work Phone: [facility] 10-28-2023 09:48-0400 Body height 167.6 cm Sriram Valles MD Work Phone: [facility] 10-28-2023 09:48-0400 Body mass index (BMI) [Ratio] 38.83 kg/m2 Sriram Valles MD Work Phone: [facility] 10-28-2023 09:48-0400 Body weight 109.14 kg Sriram Valles MD Work Phone: [facility] 10-28-2023 09:48-0400 Diastolic blood pressure 84 mm[Hg] Sriram Valles MD Work Phone: [facility] 10-28-2023 09:48-0400 Heart rate 89 /min Sriram Valles MD Work Phone: [facility] 10-28-2023 09:48-0400 SaO2% (BldA) [Mass fraction] 97 % Sriram Valles MD Work Phone: [facility] 10-28-2023 09:48-0400 Systolic blood pressure 133 mm[Hg] Sriram Valles MD Work Phone: [facility] 05-14-2022 09:37-0500 Body weight 110.22 kg Sriram Valles MD Work Phone: [facility] 05-14-2022 09:37-0500 Diastolic blood pressure 80 mm[Hg] Sriram Valles MD Work Phone: [facility] 05-14-2022 09:37-0500 Heart rate 92 /min Sriram Valles MD Work Phone: [facility] 05-14-2022 09:37-0500 SaO2% (BldA) [Mass fraction] 96 % Sriram Valles MD Work Phone: [facility] 05-14-2022 09:37-0500 Systolic blood pressure 118 mm[Hg] Sriram Valles MD Work Phone: [facility] Encounters Encounter Date Encounter Type Care Provider Facility Start: 09-23-2024 Evaluation and manag ement of inpatient Dr. Cory Conteh MD -Medical Surgical 3 Work Phone: Start: 04-20-2024 End: 05-07-2024 ambulatory ESSIE ELAM [facility] Start: 04-14-2024 ambulatory Liliane Lowe Facility :[facility] Start: 04-14-2024 End: 04-18-2024 Evaluation and management of inpatient Kobi Adair Facility:[facility] Start: 12-17-2023 End: 12-17-2023 Telephone encounter Nikia Adair MD Work Phone: [facility] [place] Comment on above: Letter Start: 11-07-2023 Patient encounter procedure [facility] Provider [facility] Department Start: 10-28-2023 End: 10-28-2023 ambulatory SRIRAM VALLES Facility:[facility] Start: 10-28-2023 End: 10-28-2023 Patient encounter procedure Sriram Valles MD Work Phone: Cardiology Comment on above: Coronary artery dise ase involving [place] coronary artery of [place] heart without angina pectoris (Primary Dx); Mixed [...] Subsequent hospital visit by physician Injection Nm [facility] Work Phone: Nuclear Medicine Comment on above: Shortness of breath [R06.02] Start: 07-05-2022 ambulatory Nurse Card Adm in [facility] Work Phone: Cardiology Comment on above: Stress Test Instruct ions Start: 07-05-2022 E-mail encounter zita rock caregiver Nurse Card Admin [facility] Work Phone: [facility] Start: 05-14-2022 End: 05-14-2022 Patient encounter procedure Sriram Valles MD Work Phone: Cardiology Comment on above: Screening for ischem ic heart disease (Primary Dx); Shortness of breath; Hypertensive heart disease with diastolic heart failure (HCC); Mixed hyperlipidemia; S/P CABG x 4 Start: 04-04-2022 ambulatory Claudia Henriquez MA [facility] Comment on above: Population Health [facility] [...] 11-06-2021 Subsequent hospital visit by physician [facility] ([facility]) Work Phone: Cat Scan Comment on above: Lung nodules [R91.8] Start: 10-24-2021 ambulatory Nikia Adair MD Work Phone: Internal Medicine [place] Start: 09-11-2021 Telephone encounter Carolina castellanos MEDICAL OPERATIONS SUPERVISOR.IMPORT EXPORT AGENT Work Phone: Family Medicine [place] Comment on above: Results Start: 08-16-2021 Telephone encounter Clint Pablo MD Work Phone: Radiation Oncology Comment on above: Patient Update Start: 07-27-2021 Telephone encounter Clint Pablo MD Work Phone: Radiation Oncology Comment on above: change appointment Start: 04-22-2018 Ambulatory JOVANY MORRISSEY Facility :[facility] Start: 08-20-2017 End: 08-20-2017 Ambulatory JOVANY Fishman [facility] Start: 02-20-2017 End: 02-20-2017 [facility] JOVANY Kye [facility] Start: 01-09-2017 Ambulatory JOVANY MORRISSEY [facility] Procedures Date Procedure Procedure Detail Performing [...] thorax w/o contra st material Carolina Rice MEDICAL OPERATIONS SUPERVISOR.IMPORT EXPORT AGENT Work Phone: Start: 11-10-2019 History of coronary [...] P,Tdap,Td Vaccine (4 - Td or Tdap) [facility] Start: 02-04-2028 Urine microalbumin profile [facility] Start: 12-11-2024 Glaucoma screening Dilated Retinal E xam [facility] Start: 10-27-2024 End: 10-27-2024 Echocardiography ECHO Cardiology Routine Hypertensive heart disease with diastolic heart failure (HCC) Mitral valve disorder Expected: 10/27/2024, Expires: 10/27/2024 [facility] Comment on above: Expected: 10/27/2024 , Expires: 10/27/2024 Start: 10-26-2024 End: 10-26-2024 Patient encounter procedure 10/26/2024 1:40 PM EDT Office Visit Cardiology [address] [place] [id number] Sriram Valles MD [address], [address] [place] [address] 1 year follow up Cardiology Comment on above: 1 year follow up Start: 09-23-2024 Hospital admission, emergency, from emergency room, medical nature [facility] Start: 09-08-2024 End: 09-08-2024 Patient encounter procedure 09/08/2024 9:40 AM EDT Office Visit Cardiology [address] [place], [place] [id number] Hypertensive heart disease with diastolic heart failure (HCC) [I11.0, I50.30] Cardiology Comment on above: Hypertensive heart d isease with diastolic heart failure (HCC) [I11.0, I50.30] Start: 12-08-2023 Covid-19 Vaccine ( season) Covid-19 Vaccine ( season) [facility] Start: 12-08-2023 Influenza vaccination Influenza Vacc ine (#1) [facility] Start: 10-28-2023 End: 10-23-2024 ECG COMPLETE [facility] Work Phone: Comment on above: Expected: 10/28/2023 , Expires: 10/23/2024 Start: 07-11-2023 Glaucoma screening Dilated Retinal E xam [facility] Start: 07-11-2023 Hepatitis C antibody , confirmatory test Dilated Retinal Exam [facility] Start: 05-10-2023 Ct thorax w/o contra st material CT CHEST WO IVCON Radiology Routine Lung nodules Expected: 05/10/2023 [facility] Work Phone: Comment on above: Expected: 05/10/2023 Start: 04-08-2023 Advance Directive Discussion Advance Directive Discussion [facility] Start: 01-29-2023 3 comp foot exam completed DIABETIC FOOT EXAM [facility] Start: 01-29-2023 Diabetic foot examination Diabetic F oot Exam [facility] Start: 12-07-2022 Covid-19 Vaccine ( season) Covid-19 Vaccine () [facility] Start: 12-07-2022 Covid-19 Vaccine () Covid-19 Vaccine () [facility] Start: 12-07-2022 Influenza vaccination [facility] Start: 09-08-2022 ANNUAL PCP TEAM DRILL PRESS HAND SCOOTER DISEASE VISIT ANNUAL PCP TEAM CHRONIC DISEASE VISIT [facility] Start: 09-08-2022 BP CONTROLLED (<130/80) BP CON TROLLED (<130/80) [facility] Start: 05-29-2022 ANNUAL PCP TEAM DRILL PRESS HAND SCOOTER DISEASE VISIT ANNUAL PCP TEAM CHRONIC DISEASE VISIT [facility] Start: 05-29-2022 BP CONTROLLED (<130/80) BP CON TROLLED (<130/80) [facility] Start: 05-21-2022 End: 05-14-2023 Echocardiography ECHO Cardiology Routine Shortness of breath Expected: 05/21/2022, Expires: 05/14/2023 [facility] Work Phone: Comment on above: Expected: 05/21/2022 , Expires: 05/14/2023 Start: 04-08-2022 ADVANCE DIRECTIVE DISCUSSION ADVANCE DIRECTIVE DISCUSSION [facility] Start: 03-10-2022 Hemoglobin A1c measurement HbA1C [facility] Start: 03-10-2022 Hemoglobin A1c/Hemoglobin.total in Blood HBA1C [facility] Start: 12-07-2021 Influenza vaccination INFLUENZA (#1) [facility] Start: 11-09-2021 Hepatitis B screening URINE ALBUMIN:CREATININE RATIO [facility] Start: 11-09-2021 Hepatitis B surface antibody level LDL CHOLESTEROL [facility] Start: 10-24-2021 End: 12-24-2021 ALBUMIN/CREAT RATIO RND UR ALBUMIN/CREAT RATIO RND UR Lab Routine Type 2 diabetes mellitus with diabetic nephropathy, with long-term current use of insulin (HCC) Expected: 10/24/2021, Expires: 12/24/2021 [facility] Work Phone: Comment on above: Expected: 10/24/2021 , Expires: 12/24/2021 Start: 10-24-2021 End: 12-24-2021 SCHEDULE LAB TESTING SCHEDULE LAB TESTING Lab Routine Expected: 10/24/2021, Expires: 12/24/2021 [facility] Work Phone: Comment on above: Expected: 10/24/2021 , Expires: 12/24/2021 Start: 09-11-2021 End: 11-11-2021 Comprehensive metabolic 2000 panel - Serum or Plasma COMP METABOLIC PANEL Lab Routine Elevated alkaline phosphatase level Expected: 09/11/2021, Expires: 11/11/2021 [facility] Work Phone: Comment on above: Expected: 09/11/2021 , Expires: 11/11/2021 Start: 09-11-2021 End: 11-11-2021 Gamma glutamyl transferase [Enzymatic activity/volume] in Serum or Plasma GGT BLD Lab Routine Elevated alkaline phosphatase level Expected: 09/11/2021, Expires: 11/11/2021 [facility] Work Phone: Comment on above: Expected: 09/11/2021 , Expires: 11/11/2021 Start: 08-26-2021 3 comp foot exam completed DIABETIC FOOT EXAM [facility] Start: 06-08-2021 Hemoglobin A1c/Hemoglobin.total in Blood HBA1C [facility] Start: 06-08-2021 Hepatitis C antibody , confirmatory test DILATED RETINAL EXAM [facility] Start: 06-07-2021 COVID-19 VACCINE (5 - Booster) COVID-19 VACCINE (5 - Booster) [facility] Start: 04-08-2021 ADVANCE DIRECTIVE DISCUSSION ADVANCE DIRECTIVE DISCUSSION [facility] Start: 11-12-2020 COVID-19 VACCINE (4 - Booster) COVID-19 VACCINE (4 - Booster) [facility] Start: 05-30-2009 SHINGRIX VACCINE (2 of 3) FATIMA GRIX VACCINE (2 of 3) [facility] Start: 2005 Hepatitis B Vaccine (1 of 3 - Risk 3-dose series) Hepatitis B Vaccine (1 of 3 - Risk 3-dose series) [facility] Start: 2005 RSV Vaccine (1 - 1-d ose 60+ series) RSV Vaccine (1 - 1-dose 60+ series) [facility] Start: 1963 Anxiety Screening Anxiety Screening [facility] Ct thorax w/o contra st material CT CHEST WO IVCON Radiology Routine Lung nodules 11/06/2021 9:50 AM EDT [facility] Work Phone: End: 05-09-2023 ECG COMPLETE ECG COMPLETE ECG Routine Screening for ischemic heart disease 1 Occurrences starting 05/09/2022 until 05/09/2023 [facility] Work Phone: Comment on above: 1 Occurrences starti ng 05/09/2022 until 05/09/2023 NM CARDIAC PERF STRESS/PHARM NM CARDIAC PERF STRESS/PHARM Radiology Routine Shortness of breath Ordered: 05/14/2022 [facility] Work Phone: Comment on above: Ordered: 05/14/2022 Patient referral [facility] Work Phone: [facility] Immunizations Immunization Date Immunization Notes Care Provider Fa cility 01-08-2023 influenza virus vacc ine, unspecified formulation Sriram Valles MD Work Phone: [facility] 03-10-2021 influenza, high-dose , quadrivalent vaccine (FLUZONE HIGH DOSE QUADRIVALENT) Clint Howe MD, MD Work Phone: [facility] 03-10-2021 influenza virus vacc ine, unspecified formulation Injection Wstr Work Phone: [facility] 07-13-2020 COVID-19 vaccine, ag e 12+ yr (PFIZER-BIONTECH - PURPLE TOP) Clint Howe MD, MD Work Phone: [facility] Work Phone: 07-05-2020 Covid (Pfizer) Dr. Barry Adair MD Work Phone: [facility] 06-22-2020 COVID-19 vaccine, ag e 12+ yr (PFIZER-BIONTECH - PURPLE TOP) Clint Howe MD, MD Work Phone: [facility] Work Phone: 06-06-2020 COVID-19 vaccine, ag e 12+ yr (PFIZER-BIONTECH - PURPLE TOP) Carolina Sternlogjulio MEDICAL OPERATIONS SUPERVISOR.IMPORT EXPORT AGENT Work Phone: [facility] 01-11-2020 influenza, high-dose , quadrivalent vaccine (FLUZONE HIGH DOSE QUADRIVALENT) Carolina Sternlogjulio MEDICAL OPERATIONS SUPERVISOR.IMPORT EXPORT AGENT Work Phone: [facility] 02-05-2019 influenza, high dose seasonal, preservative-free Clint Howe MD, MD Work Phone: [facility] 02-03-2018 influenza, high dose seasonal, preservative-free Clint Howe MD, MD Work Phone: [facility] 01-10-2017 influenza, high dose seasonal, preservative-free Clint Howe MD, MD Work Phone: [facility] 02-01-2016 influenza, high dose lukas, preservative-free Clint Howe MD, MD Work Phone: [facility] Work Phone: 02-01-2016 pneumococcal polysaccharide vaccine, 23 valent Clint Howe MD, MD Work Phone: [facility] Work Phone: 07-18-2015 pneumococcal conjuga te vaccine, 13 valent Clint Howe MD, MD Work Phone: [facility] 01-31-2015 influenza, high dose seasonal, preservative-free Clint Howe MD, MD Work Phone: [facility] Work Phone: 01-13-2014 influenza, seasonal, injectable Clint Howe MD, MD Work Phone: [facility] 02-21-2013 influenza virus vacc ine, unspecified formulation Clint Howe MD, MD Work Phone: [facility] Work Phone: 02-06-[address] Kobi Adair MD Work Phone: [facility] 02-06-2013 influenza, seasonal, injectable, preservative free Carolina Podlogar MEDICAL OPERATIONS SUPERVISOR.IMPORT EXPORT AGENT Work Phone: [facility] 04-08-2012 pneumococcal polysaccharide vaccine, 23 valent Carolina Podlogar MEDICAL OPERATIONS SUPERVISOR.IMPORT EXPORT AGENT Work Phone: [facility] 04-08-2012 pneumococcal vaccine , unspecified formulation Dr. Kobi Adair MD Work Phone: [facility] 02-16-2012 influenza virus vacc ine, unspecified formulation Clint Howe MD, MD Work Phone: [facility] 01-19-2011 influenza virus vacc ine, unspecified formulation Clint Howe MD, MD Work Phone: [facility] 01-09-2010 influenza virus vacc ine, unspecified formulation Clint Howe MD, MD Work Phone: [facility] Work Phone: 04-04-2009 zoster vaccine, live Clint Howe MD, MD Work Phone: [facility] Work Phone: 03-21-2009 novel influenza-H1N1 -09, preservative-free, injectable Carolina Podlogar MEDICAL OPERATIONS SUPERVISOR.IMPORT EXPORT AGENT Work Phone: [facility] 03-17-2009 novel influenza-H1N1 -09, all formulations Clint Howe MD, MD Work Phone: [facility] Work Phone: 01-21-2009 influenza virus vacc ine, unspecified formulation Clint Howe MD, MD Work Phone: [facility] 07-17-2008 pneumococcal polysaccharide vaccine, 23 valent Clint Howe MD, MD Work Phone: [facility] Work Phone: 01-23-2008 influenza virus vacc ine, whole virus Clint Howe MD, MD Work Phone: [facility] Work Phone: 11-18-2007 pneumococcal polysaccharide vaccine, 23 valent Clint Howe MD, MD Work Phone: [facility] Work Phone: 02-06-2007 influenza virus vacc ine, unspecified formulation Clint Howe MD, MD Work Phone: [facility] Work Phone: 06-07-2003 tetanus and diphther ia toxoids, adsorbed, preservative free, for adult use (2 Lf of tetanus toxoid and 2 Lf of diphtheria toxoid) Clint Howe MD, MD Work Phone: [facility] Work Phone: Payers Date Payer Category Payer Self-pay 2024 Unknown [id number] 2019 Private Health Insurance DANILO GONSALEZ MEDICARE SUPPLEMENT [id number] 2019-Present [phone] [address] [place] [address] Indemnity [id number] 2019 Private Health Insurance [id number] 2019 Medicare [id number] 2010 Medicare MEDICARE MEDICAR E A AND B [id number] 2010-Present [phone] [place] [address] Medicare [id number] 2010 Medicare MEDICARE MEDICAR E A AND B [id number] 2010-Present [phone] [place] [address] Medicare [id number] 2010 Medicare [id number] 1945 Unknown [id number] Medicare [id number] Unknown [id number] Unknown [id number] Unknown [id number] Unknown [id number] Unknown [id number] Social History Date Type Detail Facility Start: 09-26-2010 End: 09-23-2024 Tobacco smoking status NHIS Ex-smoker [facility] Start: 09-27-1963 End: 09-26-1973 History of tobacco use Current smoker [facility] Start: 09-26-2010 End: 10-29-2022 Cigarettes smoked current (pack per day) - Reported 0.5 [facility] Start: 09-26-2010 End: 05-14-2022 Tobacco use and exposure Former smokeless tobacco user [facility] End: 01-23-2007 History of tobacco use Chews Tobacco [facility] Start: 05-29-2021 End: 10-28-2023 Alcohol intake Current drinker of alcohol (finding) [facility] Start: 12-13-2020 End: 09-07-2021 History SDOH Alcohol Frequency 2 [facility] Start: 12-13-2020 End: 09-07-2021 History SDOH Alcohol Std Drinks 1 [facility] Start: 06-23-2013 History SDOH Alcohol Comment Rarely [facility] Start: 12-13-2020 History SDOH Social Connections Phone 5 [facility] Start: 12-13-2020 History SDOH Social Connections Meetings 3 [facility] Start: 12-13-2020 History SDOH Physical Activity DPW 0 [facility] Start: 12-13-2020 Education 21 [facility] Start: 1945 Sex Assigned At Male [facility] Start: 08-29-2021 End: 09-13-2021 Exposure to SARS-CoV-2 (event) Not sure [facility] Start: 09-27-1963 End: 09-26-1973 History of tobacco use Cigarette Smoker [facility] Start: 12-13-2020 End: 10-29-2022 Social connection and isolation panel [facility] Do you belong to any clubs or organizations such as methodist groups, unions, fraternal or athletic groups, or school groups? Yes [facility] Are you now , , , , never or living with a partner? [facility] How often to you hav e a drink containing alcohol? Monthly or less [facility] How many standard dr inks containing alcohol do you have on a typical day? 1 or 2 [facility] How often do you hav e 6 or more drinks on 1 occasion? Never [facility] How hard is it for y ou to pay for the very basics like food, housing, medical care, and heating Not hard at all [facility] Do you feel stress - tense, restless, nervous, or anxious, or unable to sleep at night because your mind is troubled all the time - these days [OSQ] Only a little [facility] (I/We) worried wheth er (my/our) food would run out before (I/we) got money to buy more. Never true [facility] In the past 12 month s, was there a time when you were not able to pay the mortgage or rent on time? No [facility] Start: 2019 Gender identity Identifies as male gender (finding) [facility] Start: 02-05-2019 Sexual orientation Heterosexual (finding) [facility] Start: 05-13-2013 Alcohol Alcohol [facility] Start: 05-13-2013 Lives Lives [facility] Start: 05-13-2013 Tobacco Use Tobacco Use [facility] Medical Equipment Procedure Code Equipment Code Equipment Origin al Text Equipment Identifier Dates Use as directed with insulin pen Dx: E11.21 DM: yes insulin: yes [id number] Start: 04-19-2016 Comment on above: Use as directed with insulin pen Dx: E11.21 DM: yes insulin: yes Clinical Notes 03-24-2015 to 09-23-2024 Telephone Encounter - Alicja Galeas MA - 12/17/2023 11:39 AM EDTTelephone Encounter - Alicja Galeas MA - 12/17/2023 11:39 AM Sriram Fajardo MD - 10/28/2023 10:05 AM EDT Note Date & Type Note Facility 09-23-2024 Radiology Diagnostic study note [facility] Imaging Services [address] [place] [address] [id number] Abdomen/Pelvis without Cont MR#: [id number] Acct: [id number] Name: KIMBERLY NAVA Rep #: [id number] : 1945 M 79 From: Rudi Pretty MD PCP: Dr. Kobi Adair MD Status: REG ER Study:Abdomen/Pelvis without Cont Date of Exa m: 09/23/24 Exam# [id number] Ordering Dr: Laura Vazquez DO PROCEDURE: ABDOMEN/PELVIS [...] Left distal ureter 6 mm calculus with zlzlzpwm-mw-uqtqpe upstream hydroureteronephrosis Severely enlarged prostate. The urinary bladder is unremarkable. Normal caliber large and small bowel. CT/Abdomen/Pelvis without Cont IMPRESSION: Left distal ureter 6 mm calculus with knznvosp-rs-xwdzgx upstream hydroureteronephrosis. Severe prostatomegaly. Reading Location: [id number] CC: Dr. Kobi Adair MD; Dr. Marco Antonio Vazquez DO ~ Sheet Music Salesperson: Signed [facility] 04-17-2024 Note [facility] Medical Records Department [address] [place] [address] Discharge Summary 04/17/24 1629 MR#: [id number] Acct: [id number] Name: KIMBERLY NAVA Rep #: [id number] : 1945 79 From: Toshia Pro MD PCP: Dr. Kobi Adair MD Status:ADM IN Location: [place] [address] Providers Date of Admission: 04/14/24 Date of [...] mg-vit E 90 mg-zinc 40 mg-copper 1 et-wuqvkg-kuvugj capsule (PreserVision AREDS-2) 1 tab PO BID [...] CKD stage IIIb, diabetes, hypothyroidism, GERD presented [facility] ED on after a fall with left [...] other new or acute complaints. Discharged to [place] [facility] in stable condition with the following [...] be a sign (more content not included)... [facility] 12-17-2023 Telephone encounter Note Pt notified. [facility] Advised him that the [facility] should be able to write the placard. He said he was given one by the [facility] but [facility] would not accept as it was signed by FIREARMS SALES ASSOCIATE not MD. I instructed pt that he would need to call the [facility] and ask that the letter be signed by an MD. Pt voiced understanding. Alicja Galeas MA [facility] 12-17-2023 Miscellaneous Notes Pt notified. [facility]. Advised him that the [facility] should be able to write the placard. He said he was given one by the [facility] but [facility] would not accept as it was signed by FIREARMS SALES ASSOCIATE not MD. I instructed pt that he [...] Brandi Tracey LPN documented in this encounter [facility] 12-17-2023 Telephone encounter Note We have not seen him since 2021 and his chart no longer has me listed as his PCP. If we are still managing his care, he will need OV for this and to follow up on his diabetes and other chronic medical conditions. [facility] 12-17-2023 Telephone encounter Note Per Kimberly, it is time to renew Handicapped Placard, asking for PCP (Dr. Adair) to write letter. Patient does not go through [facility] for Handicapped Placard letter, please call when ready for pickup. Brandi Tracey LPN [facility] 10-28-2023 Note HNO ID: [id number] Author: SRIRAM VALLES MD Service: ? Author Type: Physician Type: Progress Notes Filed: 10/28/2023 10:10 Note Text: Sriram Valles MD Interventional Cardiology [address] [place] [address] [phone] Chief Complaint Patient presents with: Follow Up [...] Depression Diabetes (HCC) DVT (deep venous thrombosis) ([facility]) 2007 Esophageal reflux Generalized osteoarthrosis, unspecified site Hemorrhage of gastrointestinal tract, unspecified History of tobacco use Hypothyroidism Nonspecific (abnormal) findings on radiological and other examination of genitourinary organs 11/18/2007 He has R pelvic Kidney - congenital Obesity (BMI 30-39.9) Obstructive sleep apnea Bipap, seeing [facility] H[facility] OF [facility] [place] with quad. bypass and valve repair- DVT [...] of Onset None Mother 98 Heart Father [place] AGE 67 Diabetes Father Hypertension Brother Diabetes [...] 25 6 Mag (more content not included)... [facility] 10-28-2023 History of Present illness Narrative Images from the original note were not included. Sriram Valles MD Interventional Cardiology [address] [place] [address] [phone] Chief Complaint Patient presents with: Follow Up [...] but ill-defined, cerebrovascular disease 1970s TIA Cancer ([facility]) 2007 thryoid Chronic rhinitis Congestive heart failure ([facility]) Coronary artery disease Dr. Hogue Depression Diabetes ([facility]) DVT (deep venous thrombosis) ([facility]) 2008 Esophageal reflux Generalized osteoarthrosis, unspecified site Hemorrhage of gastrointestinal tract, unspecified History of tobacco use Hypothyroidism Nonspecific (abnormal) findings on radiological and other examination of genitourinary organs 11/18/2007 He has R pelvic Kidney - congenital Obesity (BMI 30-39.9) Obstructive sleep apnea Bipap, seeing [facility] - PAST MEDICAL HISTORY OF 2-13-08 [place] with quad. bypass and valve repair- DVT [...] of Onset None Mother 98 Heart Father [place] AGE 67 Diabetes Father Hypertension Brother Diabetes [...] Please fax 30 day compliance download to [phone]. Dx: ANABELL, treatment emergent CSA 1 Device [...] repair ASSESSMENT/PLAN: 1. Coronary artery disease involving [place] coronary artery of [place] heart without angina pectoris - ICD9: 414.01, [...] correct any errors. documented in this encounter [facility] 07-09-2022 History of Present illness [...] Cathryn Wolfe RN Reversal agent used:N/A LOT [id number] EXP 12/07/2025 IV SITE: IV palced by nuclear tecnologist POST EXAM PIV STATUS: Discontinued by Part Time Flexible Clerk PATIENT DISCHARGED TO: Nuclear Medicine Department for post stress imaging A Diagnostic radioactive procedure has taken place, with no further precautions necessary other than routine body substance precautions. More information regarding radiation safety can be found using this link: [email or web address] [email or web address]-%20Diagnostic%20Nuclear%20 Medicine%20Procedures.[email or web address] SIGNATURE: Cathryn Wolfe RN PATIENT NAME:Kimberly Nava DATE: 07/09/22 TIME: 10:40 AM documented in this encounter [facility] 07-09-2022 History of Present illness [...] Discontinued PROCEDURE TYPE: [place] Stress: 15.3 mCi [id number] was administered IV for Rest Imaging at 0745 by JOHN. 44.8 mCi [id number] was administered IV for Stress Imaging at 0906 by JOHN. PATIENT DISCHARGED TO: Ambulatory patient, left [place] department area. A Diagnostic radioactive procedure has taken place, with no further precautions necessary other than routine body substance precautions. More information regarding radiation safety can be found using this link: [email or web address] [email or web address]-%20Diagnostic%20Nuclear%20 Medicine%20Procedures.pdf SIGNATURE: RT Elliott(R) PATIENT NAME: Kimberly Nava DATE: July 09, 2022 TIME: 7:52 AM PAGER/CONTACT #: documented in this encounter [facility] 05-14-2022 History of Present illness Narrative Images from the original note were not included. Sriram Valles MD Interventional Cardiology [address] [address] [phone] Chief Complaint Patient presents with: Established Patient [...] a heart rate of 93 bpm his MD interval is 186 ms with Q waves [...] PMH - PAST MEDICAL HISTORY OF 05-21-07 [place] with quad. bypass and valve repair- DVT [...] of Onset None Mother 98 Heart Father [place] AGE 67 Diabetes Father Hypertension Brother Diabetes [...] Please fax 30 day compliance download to [phone]. Dx: ANABELL, treatment emergent CSA 1 Device [...] correct any errors. documented in this encounter [facility] 04-04-2022 History of Present illness Narrative Images from the original note were not included. POPULATION HEALTH NAVIGATION OUTREACH Action/ANAHY Eldridge sent Reachoo message: Enedina Henriquez MA I most recently was granted 100% disability by the 's admin. therefore I will be utilizing them for my primary care. I will use them for Annual Wellness Visit in the future. Any questions give me a call [phone], Thank you. [facility] [employer] message sent ANNUAL MEDICARE WELLNESS EXAM ADVANCE DIRECTIVE DISCUSSION Never done DILATED RETINAL EXAM due on 06/08/2021 URINE ALBUMIN:CREATININE RATIO due on 11/09/2021 INFLUENZA(1) due on 12/07/2021 HBA1C due on 03/10/2022 Pt identified by name and : NO Outreach Outcome/Action Unable to reach patient: Left message Duty[employer]culatorhart message sent PCP field updated Did you [...] 2022 9:14 AM documented in this encounter [facility] 01-29-2022 History of Present illness [...] Cristy Naidu LPN documented in this encounter [facility] 01-29-2022 Instructions Nick Wall - [...] (or decreased sensation in your feet) a news gathering technician should always cut your toenails. Be Careful [...] Go to your health care provider or news gathering technician to treat these conditions. documented in this encounter [facility] 11-08-2021 Miscellaneous Notes Called PT [...] Carolina Rice APRN.CNP documented in this encounter [facility] 11-06-2021 History of Present illness [...] 2021 3:49 PM documented in this encounter [facility] 10-31-2021 Miscellaneous Notes I spoke [...] his treatment. Thanks documented in this encounter [facility] 09-12-2021 Miscellaneous Notes Pt called and is notified of providers results and instructions. Pt voices understanding. Sent information to Pt through [employer] as well. Catie Green RN Please call patient and let him know his A1c is 7.6% which is a great improvement from his last one which was 10%. Continue to follow with [place] for this. Thyroid level in good range- continue current dose of synthroid. Alkaline phosphatase was elevated. Recommend additional blood work. He should fast 10 hours prior. He tells me someone from [place] comes to his house frequently. Please ask him if he can get a fax number from them so we can send them our lab results. Kidney function remains decreased but is stable. Continue to avoid NSAID products, eat low salt diet and stay hydrated. Thanks, Carolina Rice APRN.KEN documented in this encounter [facility] 07-27-2021 Miscellaneous Notes Spoke to [...] Dr Howe. Thanks. documented in this encounter [facility] 03-24-2015 History of Past i [...] Patient get machine and supplies from the [place]. Last Assessment & Plan: Been for a sleep study, and there was a significant change to his levels, hoping he will be better during the new year. Coronary artery disease invo lving coronary bypass graft of [place] heart without angina pectoris 11/06/2007 11/15/2020 Overview: [...] of this encounter (statuses as of 07/28/2021) [facility] History of Past illness Narrative* [...] disease invo lving coronary bypass graft of [place] heart without angina pectoris 11/06/2007 11/15/2020 Overview: [...] of this encounter (statuses as of 09/12/2021) [facility] History of Past illness Narrative* [...] disease invo lving coronary bypass graft of [place] heart without angina pectoris 11/06/2007 11/15/2020 Overview: [...] of this encounter (statuses as of 10/27/2021) [facility] History of Past illness Narrative* [...] Patient get machine and supplies from the [place]. Last Assessment & Plan: Been for a sleep study, and there was a significant change to his levels, hoping he will be better during the new year. Coronary artery disease invo lving coronary bypass graft of [place] heart without angina pectoris 11/06/2007 11/15/2020 Overview: [...] of this encounter (statuses as of 11/01/2021) [facility] History of Past illness Narrative* [...] Patient get machine and supplies from the [place]. Last Assessment & Plan: Been for a sleep study, and there was a significant change to his levels, hoping he will be better during the new year. Coronary artery disease invo lving coronary bypass graft of [place] heart without angina pectoris 11/06/2007 11/15/2020 Overview: [...] of this encounter (statuses as of 11/07/2021) [facility] History of Past illness Narrative* [...] Patient get machine and supplies from the [place]. Last Assessment & Plan: Been for a sleep study, and there was a significant change to his levels, hoping he will be better during the new year. Coronary artery disease invo lving coronary bypass graft of [place] heart without angina pectoris 11/06/2007 11/15/2020 Overview: [...] of this encounter (statuses as of 11/21/2021) [facility] History of Past illness Narrative* [...] disease invo lving coronary bypass graft of [place] heart without angina pectoris 11/06/2007 11/15/2020 Overview: [...] of this encounter (statuses as of 01/29/2022) [facility] History of Past illness Narrative* [...] Patient get machine and supplies from the [place]. Last Assessment & Plan: Been for a sleep study, and there was a significant change to his levels, hoping he will be better during the new year. Coronary artery disease invo lving coronary bypass graft of [place] heart without angina pectoris 11/06/2007 11/15/2020 Overview: [...] of this encounter (statuses as of 04/10/2022) [facility] History of Past illness Narrative* [...] disease invo lving coronary bypass graft of [place] heart without angina pectoris 11/06/2007 11/15/2020 Overview: [...] of this encounter (statuses as of 05/14/2022) [facility] History of Past illness Narrative* [...] Patient get machine and supplies from the [place]. Last Assessment & Plan: Been for a sleep study, and there was a significant change to his levels, hoping he will be better during the new year. Coronary artery disease invo lving coronary bypass graft of [place] heart without angina pectoris 11/06/2007 11/15/2020 Overview: [...] of this encounter (statuses as of 07/05/2022) [facility] History of Past illness Narrative* [...] disease invo lving coronary bypass graft of [place] heart without angina pectoris 11/06/2007 11/15/2020 Overview: [...] of this encounter (statuses as of 07/09/2022) [facility] History of Past illness Narrative* [...] Patient get machine and supplies from the [place]. Last Assessment & Plan: Been for a sleep study, and there was a significant change to his levels, hoping he will be better during the new year. Coronary artery disease invo lving coronary bypass graft of [place] heart without angina pectoris 11/06/2007 11/15/2020 Overview: [...] of this encounter (statuses as of 02/08/2023) [facility] History of Past illness Narrative* [...] Patient get machine and supplies from the [place]. Last Assessment & Plan: Been for a sleep study, and there was a significant change to his levels, hoping he will be better during the new year. Coronary artery disease invo lving coronary bypass graft of [place] heart without angina pectoris 11/06/2007 11/15/2020 Overview: [...] of this encounter (statuses as of 02/08/2023) [facility] Elevated alkaline phosphatase level- Primary Other nonspecific abnormal serum enzyme levels [facility] Type 2 diabetes mellitus [...] ClinicEvaluation note* Diagnosis Coronary artery disease involving [place] coronary artery of [place] heart without angina pectoris- Primary Mixed hyperlipidemia [...] Mitral valve disorders [facility] noteNo assessment information availableWMartins Ferry Hospital Work Phone: Reason for referral (narrative)* Diagnostic Procedure Only (Routine) - Pending Review Specialty Diagnoses / Procedures Referred By Contac t Referred To Contact MOLECULAR & FUNCTIONAL IMAGING Diagnoses Shortness of breath Procedures [place] CARDIAC PERF STRESS/PHARM MYOCARDIAL SPECT MULTIPLE STUDIES Sriram Valles MD [address] [place] [address] Molecular [facility] Functional Imaging [address] [place] [address] Referral ID Status Reason Start Date Expiration Date Visits Requested Visits Authorized [id number] Pending Review Auto-Generat ed Referral 05/14/2022 06/13/2023 1 1 * Outpatient Procedure (Routine) - Pending Review Specialty Diagnoses / Procedures Referred By Contac t Referred To Contact [facility] Diagnoses Shortness of breath Procedures ECHO ECHO TTHRC R-T 2D W/WOM-MODE COMPL SPEC&COLR D Sriram Valles MD [address] [place] [address] [facility] [place] [address] [place] [address] Referral ID Status Reason Start Date Expiration Date Visits Requested Visits Authorized [id number] Pending Review Auto-Generat ed Referral 05/21/2022 05/14/2023 1 1 * Outpatient Procedure (Routine) - Closed Specialty Diagnoses / Procedures Referred By Contac t Referred To Contact [facility] Diagnoses Screening for ischemic heart disease Procedures ECG COMPLETE ECG ROUTINE ECG W/LEAST 12 LDS W/I&R Sriram Valles MD [address] [place] [address] [facility] [place] [address] [place] [address] Referral ID Status Reason Start Date Expiration Date V isits Requested Visits Authorized [id number] Closed Auto-Generate d Referral 05/09/2022 05/09/2023 1 1 [facility] for referral (narrative)* Outpatient Procedure (Routine) - Authorized Specialty Diagnoses / Procedures Referred By Contac t Referred To Contact [facility] [place] Diagnoses Hypertensive heart disease with diastolic heart failure (HCC) Mitral valve disorder Procedures ECHO ECHO TTHRC R-T 2D W/WOM-MODE COMPL SPEC&COLR D Sriram Valles MD [address], [address] [place] [address] [facility] [address] [place] [address] Referral ID Status Reason Start Date Expiration Date Visits Requested Visits Authorized [id number] Authorized Auto-Generat ed Referral 07/29/2024 10/27/2024 1 1 * Outpatient Procedure (Routine) - New Request Specialty Diagnoses / Procedures Referred By Contac t Referred To Contact [facility] Diagnoses Screening for ischemic heart disease Coronary artery disease involving [place] coronary artery of [place] heart without angina pectoris Mixed hyperlipidemia Procedures ECG COMPLETE ECG ROUTINE ECG W/LEAST 12 LDS W/I&R Sriram Valles MD [address] [place] [address] [facility] [address] [facility] [place] [address] Referral ID Status Reason Start Date Expiration Date Visits Requested Visits Authorized [id number] New Request Auto-Generat ed Referral 10/28/2023 10/23/2024 1 1 [facility] for referral (narrative)No reason for referral information availableWMartins Ferry Hospital Work Phone: Reason for visit Narrative* Diagnostic Procedure Only (Routine) - Closed Specialty Diagnoses / Procedures Referred By Tanner t Referred To Contact MOLECULAR & FUNCTIONAL IMAGING Diagnoses Shortness of breath Procedures [place] CARDIAC PERF STRESS/PHARM MYOCARDIAL SPECT MULTIPLE STUDIES Sriram Valles MD [address] [place] [address] Molecular [facility] [address] [place] [id number] Referral ID Status Reason Start Date Expiration Date V isits Requested Visits Authorized [id number] Closed Auto-Generate d Referral 05/14/2022 06/13/2023 1 1 [facility] Summary Purpose Family History Relationship Condition Age at Onset Recorded Date/T davin father Coronary artery disease Unknown Myocardial infarction Unknown Diabetes mellitus Unknown Cardiac disease Unknown Hypertension Unknown brother Hypertension Unknown Advance Directives Advance Directive Response Recorded Date/ Time Do you have a Healthcare Power of Can Solderer? No September 23, 2024 4:13pm Advance Directives No April 14, 2015 10:30am Reason for Referral Specialty Diagnoses / Procedures Referred By Tanner t Referred To Contact CT IMAGING Diagnoses Lung nodules Procedures CT CHEST WO IVCON DIAGNOSTIC COMPUTED TOMOGRAPHY THORAX W/O CNTRST Podlogar, [place], MEDICAL OPERATIONS SUPERVISOR.IMPORT EXPORT AGENT [address] [place] [address] Ct Imaging Referral ID Status Reason Start Date Expiration Date V isits Requested Visits Authorized [id number] Closed Auto-Generate d Referral 11/26/2021 06/28/2022 1 1 Referral ID Status Reason Start Date Expiration Date Visits Requested Visits Authorized [id number] Pending Review Auto-Generat ed Referral 11/08/2021 12/07/2022 [...] DATE CREATED AUTHOR 09/25/2017 [facility] DATE CREATED AUTHOR 'S ORGANIZ ATION 09/25/2017 [facility] DATE CREATED AUTHOR AUTHOR'S ORGANIZ ATION 07/17/2020 [facility] DATE CREATED AUTHOR AUTHOR'S ORGANIZ ATION 12/19/2023 [facility] DATE CREATED AUTHOR AUTHOR'S ORGANIZ ATION 04/29/2024 [facility] DATE CREATED AUTHOR AUTHOR'S ORGANIZ ATION 05/10/2024 [facility] Source Comments (unrecognize d section and content) In the event this informatio n is protected by the Federal Confidentiality of Alcohol and Drug Abuse Patient Records regulations: The Federal rules restrict any use of the information to criminally investigate or prosecute any alcohol or drug abuse patient.[facility] the event this information is protected by the Federal Confidentiality of Alcohol and Drug Abuse Patient Records regulations: The Federal rules restrict any use of the information to criminally investigate or prosecute any alcohol or drug abuse patient.[facility] the event this information is protected by the Federal Confidentiality of Alcohol and Drug Abuse Patient Records regulations: The Federal rules restrict any use of the information to criminally investigate or prosecute any alcohol or drug abuse patient.[facility] Center[facility] the event this information is protected by the Federal Confidentiality of Alcohol and Drug Abuse Patient Records regulations: The Federal rules restrict any use of the information to criminally investigate or prosecute any alcohol or drug abuse patient.[facility] Center[facility] the event this information is protected by the Federal Confidentiality of Alcohol and Drug Abuse Patient Records regulations: The Federal rules restrict any use of the information to criminally investigate or prosecute any alcohol or drug abuse patient.[facility] Center[facility] the event this information is protected by the Federal Confidentiality of Alcohol and Drug Abuse Patient Records regulations: The Federal rules restrict any use of the information to criminally investigate or prosecute any alcohol or drug abuse patient.[facility] Center[facility] the event this information is protected by the Federal Confidentiality of Alcohol and Drug Abuse Patient Records regulations: The Federal rules restrict any use of the information to criminally investigate or prosecute any alcohol or drug abuse patient.[facility] Center[facility] the event this information is protected by the Federal Confidentiality of Alcohol and Drug Abuse Patient Records regulations: The Federal rules restrict any use of the information to criminally investigate or prosecute any alcohol or drug abuse patient.[facility] Center[facility] the event this information is protected by the Federal Confidentiality of Alcohol and Drug Abuse Patient Records regulations: The Federal rules restrict any use of the information to criminally investigate or prosecute any alcohol or drug abuse patient.[facility] Center[facility] the event this information is protected by the Federal Confidentiality of Alcohol and Drug Abuse Patient Records regulations: The Federal rules restrict any use of the information to criminally investigate or prosecute any alcohol or drug abuse patient.[facility] Center[facility] the event this information is protected by the Federal Confidentiality of Alcohol and Drug Abuse Patient Records regulations: The Federal rules restrict any use of the information to criminally investigate or prosecute any alcohol or drug abuse patient.[facility] Center[facility] the event this information is protected by the Federal Confidentiality of Alcohol and Drug Abuse Patient Records regulations: The Federal rules restrict any use of the information to criminally investigate or prosecute any alcohol or drug abuse patient.[facility] Center[facility] the event this information is protected by the Federal Confidentiality of Alcohol and Drug Abuse Patient Records regulations: The Federal rules restrict any use of the information to criminally investigate or prosecute any alcohol or drug abuse patient.[facility] Center[facility] the event this information is protected by the Federal Confidentiality of Alcohol and Drug Abuse Patient Records regulations: The Federal rules restrict any use of the information to criminally investigate or prosecute any alcohol or drug abuse patient.[facility] Center[facility] the event this information is protected by the Federal Confidentiality of Alcohol and Drug Abuse Patient Records regulations: The Federal rules restrict any use of the information to criminally investigate or prosecute any alcohol or drug abuse patient.[facility] Center[facility] the event this information is protected by the Federal Confidentiality of Alcohol and Drug Abuse Patient Records regulations: The Federal rules restrict any use of the information to criminally investigate or prosecute any alcohol or drug abuse patient.[facility] Reason for Visit (unrecogniz ed section and content) Reason Comments change appointment Reason Comments Results Reason Comments Patient Update Reason Comments Radiology CT Specialty Diagnoses / Procedures Referred By Contac t Referred To Contact CT IMAGING Diagnoses Lung nodules Procedures CT CHEST WO IVCON DIAGNOSTIC COMPUTED TOMOGRAPHY THORAX W/O CNTRST PodlogarCarolina, MEDICAL OPERATIONS 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.IMPORT EXPORT AGENT [address] [place] [address] Ct Imaging Referral ID Status Reason Start Date Expiration Date V isits Requested Visits Authorized [id number] Closed Auto-Generate d Referral 11/26/2021 06/28/2022 1 1 Reason Comments Orders Reason Comments Established Patient Follow Up Diabetic Foot Care Ingrown Toenail Reason Onset Date Comments Population Health Navigation Outreach 04/04/2022 [facility] PCSA Reason Comments Established Patient Follow-Up Reason Comments Radiology [place] Specialty Diagnoses / Procedures Referred By Contac t Referred To Contact MOLECULAR & FUNCTIONAL IMAGING Diagnoses Shortness of breath Procedures [place] CARDIAC PERF STRESS/PHARM MYOCARDIAL SPECT MULTIPLE STUDIES Sriram Valles MD [address] [place] [address] Molecular & Functional Imaging [address] [place] [address] Referral ID Status Reason Start Date Expiration Date V isits Requested Visits Authorized [id number] Closed Auto-Generate d Referral 05/14/2022 06/13/2023 1 1 Reason Comments Follow Up Reason Comments Letter Care Teams (unrecognized sec tion and content) 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 Start Date End Date Nikia Adair MD [address] [place] [address] PCP - General Family Practice 04/16/17 Clint Howe MD, [address] [place] [address] Physician Radiation Oncology 07/27/21 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 Start Date End Date Nikia Adair MD [address] [place] [address] PCP - General Family Practice 04/16/17 Clint Howe MD, [address] [place] [address] Physician Radiation Oncology 07/27/21 Clint Howe MD, [address] [place] [address] Physician Radiation Oncology 07/28/21 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 Start Date End Date Nikia Adair MD [address] [place] [address] PCP - General Family Practice 04/16/17 Clint Howe MD, [address] [place] [address] Physician Radiation Oncology 07/27/21 Clint Howe MD, [address] [place] [address] Physician Radiation Oncology 07/28/21 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 Start Date End Date Nikia Adair MD [address] [place] [address] PCP - General Family Practice 04/16/17 Clint Howe MD, [address] [place] [address] Physician Radiation Oncology 07/27/21 Clint Howe MD, [address] [place] [address] Physician Radiation Oncology 07/28/21 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 Start Date End Date Nikia dAair MD [address] [place] [address] PCP - General Family Practice 04/16/17 Clint Howe MD, [address] [place] [address] Physician Radiation Oncology 07/27/21 Clint Howe MD, [address] [place] [address] Physician Radiation Oncology 07/28/21 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 Start Date End Date Nikia Adair MD [address] [place] [address] PCP - General Family Practice 04/16/17 Clint Howe MD, [address] [place] [address] Physician Radiation Oncology 07/27/21 Clint Howe MD, [address] [place] [address] Physician Radiation Oncology 07/28/21 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 Start Date End Date Nikia Adair MD [address] [place] [address] PCP - General Family Medicine 04/16/17 Clint Howe MD, [address] [place] [address] Physician Radiation Oncology 07/27/21 Clint Howe MD, [address] [place] [address] Physician Radiation Oncology 07/28/21 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 Start Date End Date [facility] [address] [place] [address] PCP - General 04/04/22 Clint Howe MD, [address] [place] [address] Physician Radiation Oncology 07/27/21 Clint Howe MD, [address] [place] [address] Physician Radiation Oncology 07/28/21 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 Start Date End Date [facility] [address] [place] [address] PCP - General 04/04/22 Clint Howe MD, [address] [place] [address] Physician Radiation Oncology 07/27/21 Clint Howe MD, [address] [place] [address] Physician Radiation Oncology 07/28/21 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 Start Date End Date [facility] [address] [place] [address] PCP - General 04/04/22 Clint Howe MD, [address] [place] [address] Physician Radiation Oncology 07/27/21 Clint Howe MD, [address] [place] [address] Physician Radiation Oncology 07/28/21 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 Start Date End Date [facility] [address] [place] [address] PCP - General 04/04/22 Clint Howe MD, [address] [place] [address] Physician Radiation Oncology 07/27/21 Clint Howe MD, [address] [place] [address] Physician Radiation Oncology 07/28/21 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 Start Date End Date [facility] [address] [place] [address] PCP - General 04/04/22 Clint Howe MD, [address] [place] [address] Physician Radiation Oncology 07/27/21 Clint Howe MD, [address] [place] [address] Physician Radiation Oncology 07/28/21 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 Start Date End Date [facility] [address] [place] [address] PCP - General 04/04/22 Clint Howe MD, [address] [place] [address] Physician Radiation Oncology 07/27/21 Clint Howe MD, [address] [place] [address] Physician Radiation Oncology 07/28/21 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 Start Date End Date [facility] [address] [place] [address] PCP - General 04/04/22 Clint Howe MD [address] [place] [address] Physician Radiation Oncology 07/27/21 Clint Howe MD [address] [place] [address] Physician Radiation Oncology 07/28/21 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 Start Date End Date [facility] [address] [facility] [place] [address] PCP - General 04/04/22 Clint Howe MD [address] [place] [address] Physician Radiation Oncology 07/27/21 Clint Howe MD [address] [place] [address] Physician Radiation Oncology 07/28/21 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 Start Date End Date [facility] [address] [place] [address] PCP - General 04/04/22 Clint Howe MD [address] [place] [address] Physician Radiation Oncology 07/27/21 Clint Howe MD [address] [place] [address] Physician Radiation Oncology 07/28/21 Team Status: Active Member Role Status Dates Dr. Kobi Adair MD Primary Care Provider Acti Team Status: Active Member Role Status Dates Dr. Kobi Adair MD Primary Care Provider Acti ve Start: September 23, 2024 Dr. Marco Antonio Vazquez DO Emergency Provider Active Start: September 23, 2024 Dr. Cory Conteh MD Admit Provider Active Start: September 23, [...] BE BASED ON THE PRIMARY CLINICAL RECORDS. [employer] provides no warranty or guarantee of the accuracy or completeness of information in this document.
--- OUTSIDE RECORDS SUMMARY | 2024-09-23 22:58 | XMS RPT_ITS | CCD ---
Author Organization [facility] CliniSymn Care Team Providers Care Exchange Consultant Name Role Phone GHANSHYAM, JOVANY E Unavailable [...] Willesung Unavailable Shyam ELAM MD, Daesung Unavailable [facility] Primary Care Provider Clint Howe MD Unavailable Clint Howe MD Unavailable [facility] Primary Care Provider SRIRAM VALLES Referring Unavailable [...] sources) lovastatin; Translations: [LOVASTATIN] Drug Allergy 8 [facility] Repository (19 sources) INHALED ANESTHETICS (HALOGEN BASED); Translations: [INHALED ANESTHETICS (HALOGEN BASED)] Propensity to adverse reactions to drug (disorder) 8 [facility] Repository (3 sources) albuterol; Translations: [ALBUTEROL] Drug Allergy 2 [facility] Repository Comment on above: [facility] [[email or web address] (1 source) Anesthetics - Amide Type - Select A Drug allergy (disorder) 3 [facility] Repository (1 source) Anesthetics - Rivka Type- Parabens Drug allergy (disorder) 3 [facility] Repository (1 source) Anesthetics - Amide Type - Select A Allergy to substance 5 Other [facility] Comment on above: FAMILY HX OF MALIGNA NT HYPERTHERMIA WHEN HAD BYPASS - WENT INTO [facility] FOR 21 DAYS WHEN HAD THYROID REMOVED BY DR MC AT [facility] CRASHED BP DROPPED AND HAD TO ABORT OPERATION 1ST TIME AROUND UNSURE OF WHICH ANESTHESIA IT WAS (1 source) Anesthetics - Rivka Type- Parabens Allergy to substance 5 Other [facility] Comment on above: FAMILY HX OF MALIGNA NT HYPERTHERMIA WHEN HAD BYPASS - WENT INTO [facility] FOR 21 DAYS WHEN HAD THYROID REMOVED BY DR MC AT [facility] CRASHED BP DROPPED AND HAD TO ABORT [...] Please fax 30 day compliance download to [phone]. Dx: ANABELL, treatment emergent CSA 1 Device 0 05/17/2015 Active Comment on above: Pressure change: Cordell evel PAP 19/15 cmH2O. Please fax 30 day compliance download to [phone]. Dx: ANABELL, treatment emergent CSA Please dispense [...] 1 tablet by radha twice daily. Vit C,M-Mo-Uqfii-Lutein -Zeaxan (Preservision Areds-2) 250-90-40-1 mg capsule (1 source) Start: 04-14-2024 take 2 capsules by mouth twice daily Vit C,R-Aq-Ddogx-Lutei n-Zeaxan (Preservision Areds-2) 250-90-40-1 mg capsule Active [...] daily. docusate sodium 50 mg / sennosides, nursing home 8.6 mg oral tablet (1 source) [...] disease (20 sources) Atherosclerotic heart disease of [place] coronary artery without angina pectoris; Translations: [Coronary [...] Auto (Unsp spec) [#/Vol] 1.07 10*3/uL 0.83-4.51 [facility] Absolute neutrophil countOrd ered By: ED PROVIDER on 09-23-2024 Neutrophils (Bld) [#/Vol] 5.0 10*3/uL 2.0-7.7 [facility] Anion gap in Serum or Plasma Ordered By: ED PROVIDER on 09-23-2024 Anion gap [Moles/Vol] 15 mmol/L 5-15 [facility] Automated lymphocyte count a s percentage of total leukocytesOrdered By: ED PROVIDER on 09-23-2024 Lymphocytes/100 WBC Auto (Unsp spec) 15.4 % Low 19-41 [facility] BUN/creatinine ratioOrdered By: ED PROVIDER on 09-23-2024 Urea nitrogen/Creatinine [Mass ratio] 16.3 mg/mg 10-20 [facility] Basophil percentageOrdered B y: ED PROVIDER on 09-23-2024 Basophils/100 WBC (Bld) 0.6 % 0-1 [facility] Bilirubin Test strip Ql (U)O rdered By: Marco Antonio Vazquez on 09-23-2024 Bilirubin Ql (U) Negative Negative [facility] Bilirubin, totalOrdered By: ED PROVIDER on 09-23-2024 Bilirubin [Mass/Vol] 1.07 mg/dL 0.00-1.30 [facility] Carbon dioxide, total [Moles /volume] in Central venous bloodOrdered By: ED PROVIDER on 09-23-2024 CO2 [Moles/Vol] 23.1 mmol/L 21.0-32.0 [facility] Chloride assayOrdered By: ED PROVIDER on 09-23-2024 Chloride [Moles/Vol] 101 mmol/L 98-108 [facility] Eosinophil percentageOrdered By: ED PROVIDER on 09-23-2024 Eosinophils/100 WBC (Bld) 2.4 % 0-5 [facility] Erythrocyte distribution wid th ratioOrdered By: ED PROVIDER on 09-23-2024 Erythrocyte distribution width (RBC) [Ratio] 13.4 % 11.6-14.6 [facility] Erythrocyte distribution wid th standard deviationOrdered By: ED PROVIDER on 09-23-2024 Erythrocyte distribution width (RBC) [Ratio] 45.6 fl High 35.1-43.9 [facility] Glomerular filtration rate ( GFR) estimation/1.73 sq m using serum, plasma, or whole bOrdered By: ED PROVIDER on 09-23-2024 GFR/1.73 sq M.predicted among non-blacks MDRD (S/P/Bld) [Vol rate/Area] 32 mL/min/{1.73_m2} Low >60 [facility] Comment on above: mL/min/1.73m2 CKD-EP I Creatinine Equation (2020) Hematocrit Auto (Bld) [Volum e fraction]Ordered By: ED PROVIDER on 09-23-2024 Hematocrit (Bld) [Volume fraction] 48.6 % 40-54 [facility] Hemoglobin measurementOrdere d By: ED PROVIDER on 09-23-2024 Hemoglobin (Bld) [Mass/Vol] 16.2 g/dL 13.0-16.5 [facility] Immature granulocytes/100 WB C Auto (Bld)Ordered By: ED PROVIDER on 09-23-2024 Immature granulocytes/100 WBC (Bld) 0.300 % 0.0-0.9 [facility] Comment on above: IG% - Immature Granu locytes (promyelocytes, myelocytes and metamyelocytes) > 1% indicates that a LEFT SHIFT is Present. Ketones Test strip Ql (U)Ord ered By: Marco Antonio Vazquez on 09-23-2024 Ketones Ql (U) Negative Negative [facility] Laboratory - Chemistry and C hemistry - challengeOrdered By: ED PROVIDER on 09-23-2024 AST [Catalytic activity/Vol] 23 U/L <38 [facility] Lipase measurementOrdered By : ED PROVIDER on 09-23-2024 Lipase [Catalytic activity/Vol] 44 U/L 13-75 [facility] Comment on above: Please note:LIPASE r evised reference range effective 22. New Lipase methodology. Expected to produce lower values than the previous assay method. NEW Reference Range: 13 - 75 U/L MCV (mean corpuscular volume ) determinationOrdered By: ED PROVIDER on 09-23-2024 MCV (RBC) [Entitic vol] 93.5 fL 80-94 [facility] Mean corpuscular hemoglobin (MCH) determinationOrdered By: ED PROVIDER on 09-23-2024 MCH (RBC) [Entitic mass] 31.2 pg 27.0-32.0 [facility] Mean corpuscular hemoglobin concentration (MCHC) determinationOrdered By: ED PROVIDER on 09-23-2024 MCHC (RBC) [Mass/Vol] 33.3 g/dL 32-36 [facility] Mean platelet volume determi nationOrdered By: ED PROVIDER on 09-23-2024 Platelet mean volume (Bld) [Entitic vol] 10.5 fL 6.2-12.0 [facility] Microscopic analysis of urin e for red blood cells (RBC)Ordered By: Marco Antonio Vazquez on 09-23-2024 Microscopic analysis of urine for red blood cells (RBC) 0-5 SEEN /hpf 0-5 [facility] Monocyte percentageOrdered B y: ED PROVIDER on 09-23-2024 Monocytes/100 WBC (Bld) 9.1 % 0-10 [facility] Mucus LM Ql (Urine sed)Order ed By: Marco Antonio Vazquez on 09-23-2024 Mucus Ql (Urine sed) 0 SEEN /hpf [facility] Neutrophil percentageOrdered By: ED PROVIDER on 09-23-2024 Neutrophils/100 WBC (Bld) 72.2 % High 47-70 [facility] Nitrite Test strip Ql (U)Ord ered By: Marco Antonio Vazquez on 09-23-2024 Nitrite Ql (U) Negative Negative [facility] Nucleated red blood cell per centageOrdered By: ED PROVIDER on 09-23-2024 Nucleated RBC/100 WBC (Bld) [Ratio] 0 % 0-5 [facility] Platelet countOrdered By: ED PROVIDER on 09-23-2024 Platelets (Bld) [#/Vol] 150 10*3/uL 150-450 [facility] Potassium measurement (mass/ volume)Ordered By: ED PROVIDER on 09-23-2024 Potassium (Unsp spec) [Mass/Vol] 4.4 mmol/L 3.3-5.1 [facility] Protein Test strip Ql (U)Ord ered By: Marco Antonio Vazquez on 09-23-2024 Protein Ql (U) 30 mg/dl High Negative [facility] RBC Auto (Bld) [#/Vol]Ordere d By: ED PROVIDER on 09-23-2024 RBC (Bld) [#/Vol] 5.20 10*6/uL 4.6-6.2 [facility] Serum creatinine measurement (mass/volume)Ordered By: ED PROVIDER on 09-23-2024 Creatinine [Mass/Vol] 2.08 mg/dL High 0.70-1.20 [facility] Serum globulin measurementOr dered By: ED PROVIDER on 09-23-2024 Globulin (S) [Mass/Vol] 2.7 g/dL 2.2-4.2 [facility] Serum glucose measurement (m ass/volume)Ordered By: ED PROVIDER on 09-23-2024 Glucose [Mass/Vol] 210 mg/dL High 70-99 [facility] Serum or plasma alanine villafuerte otransferase (ALT) measurementOrdered By: ED PROVIDER on 09-23-2024 ALT [Catalytic activity/Vol] 13 U/L <47 [facility] Serum or plasma albumin chase urement (mass/volume)Ordered By: ED PROVIDER on 09-23-2024 Albumin [Mass/Vol] 4.3 g/dL 3.4-4.8 [facility] Serum or plasma albumin/glob ulin mass ratioOrdered By: ED PROVIDER on 09-23-2024 Albumin/Globulin [Mass ratio] 1.6 {ratio} 0.9-2.4 [facility] Serum or plasma alkaline claudio sphatase measurementOrdered By: ED PROVIDER on 09-23-2024 ALP [Catalytic activity/Vol] 124 U/L 40-129 [facility] Serum or plasma calcium chase urement (mass/volume)Ordered By: ED PROVIDER on 09-23-2024 Calcium [Mass/Vol] 9.2 mg/dL 7.6-11.0 [facility] Serum or plasma urea nitroge n measurement (mass/volume)Ordered By: ED PROVIDER on 09-23-2024 Urea nitrogen [Mass/Vol] 34 mg/dL High 4-19 [facility] Sodium levelOrdered By: ED P [place] on 09-23-2024 Sodium [Moles/Vol] 138 mmol/L 133-145 [facility] Squamous epithelial cells de tection in urine sediment by light microscopyOrdered By: Marco Antonio Vazquez on 09-23-2024 Epithelial cells.squamous LM Ql (Urine sed) 0-5 SEEN /hpf 0-5 [facility] Total proteinOrdered By: ED PROVIDER on 09-23-2024 Protein [Mass/Vol] 7.0 g/dL 5.9-8.4 [facility] Urine clarityOrdered By: Pineda Vazquez on 09-23-2024 Clarity (U) Clear Clear [facility] Urine color determinationOrd ered By: Marco Antonio Vazquez on 09-23-2024 Color (U) Yellow Yellow [facility] Urine glucose detectionOrder ed By: Marco Antonio Vazquez on 09-23-2024 Glucose Ql (U) 1000 mg/dl High Normal [facility] Urine leukocyte esterase det ection by dipstickOrdered By: Marco Antonio Vazquez on 09-23-2024 Leukocyte esterase Test strip Ql (U) Negative Negative [facility] Urine pHOrdered By: Marco Antonio jacobo on 09-23-2024 pH (U) 7.0 [pH] 5.0 - 8.0 [facility] Urine sediment bacteria coun t by microscopy (number/high power field)Ordered By: Marco Antonio Vazquez on 09-23-2024 Bacteria LM.HPF (Urine sed) [#/Area] 0 /[HPF] None Seen [facility] Urine specific gravity measu rementOrdered By: Marco Antonio Vazquez on 09-23-2024 Specific gravity (U) [Rel density] 1.010 1.002-1.03 0 [facility] Urine urobilinogen measureme ntOrdered By: Marco Antonio Vazquez on 09-23-2024 Urobilinogen Ql (U) Normal mg/dl Normal [facility] White blood cell (WBC) count Ordered By: ED PROVIDER on 09-23-2024 WBC (Bld) [#/Vol] 7.0 10*3/uL 4.4-11.0 [facility] White blood cell countOrdere d By: Marco Antonio Vazquez on 09-23-2024 White blood cell count 0-5 SEEN /hpf 0-5 [facility] CBC (NO DIFF)on 04-21-2024 CBC panel Auto (Bld) Normal [facility] Comment on above: Result Comment: CBC( WITHOUT DIFFERENTIAL) Performed By: #### 2 [id number] #### [address] [address] Erythrocyte distribution width (RBC) [Ratio] 13.8 % Normal 12.0 - 15.6 [facility] Comment on above: Performed By: #### 2 [id number] #### [facility],[address] [place] [address] Hematocrit (Bld) [Volume fraction] 48.9 % Normal 40.0 - 52.0 [facility] Comment on above: Performed By: #### 2 [id number] #### [address] [address] Hemoglobin (Bld) [Mass/Vol] 16.3 g/dL Normal 13.0 - 17.5 [facility] Comment on above: Performed By: #### 2 28885 #### [address] [address] MCH (RBC) [Entitic mass] 31 pg Normal 27 - 33 [facility] Comment on above: Performed By: #### 2 25085 #### [facility],[address] [place] [address] MCHC 33 X10 3 Normal 32 - 36 [facility] Comment on above: Performed By: #### 2 97535 #### [facility],[address] [place] [address] MCV (RBC) [Entitic vol] 93 fL Normal 81 - 98 [facility] Comment on above: Performed By: #### 2 41709 #### [facility],[address] [place] [address] PLATELET 206 x10EE3/UL Normal 150 - 450 [facility] Comment on above: Performed By: #### 2 95645 #### [facility],[address] [place] [address] Platelet mean volume (Bld) [Entitic vol] 8.3 fL Normal 6.4 - 10.5 [facility] Comment on above: Performed By: #### 2 [id number] #### [facility],[address] [place], [place] [id number] RBC 5.27 x 10EE6/UL Normal 4.50 - 6.00 [facility] Comment on above: Performed By: #### 2 88404 #### [facility],[address] [place], [place] [id number] WBC 7.2 x 10EE3/UL Normal 4.5 - 10.8 [facility] Comment on above: Performed By: #### 2 90021 #### [facility],[address] [place], [place] [id number] CMP with eGFRon 04-21-2024 AGE 79 years Normal [facility] Comment on above: Performed By: #### 2 91817 #### [facility],[address] [place] [address] Albumin [Mass/Vol] 3.5 g/dL Normal 3.4 - 5.0 [facility] Comment on above: Performed By: #### 2 [id number] #### [facility],[address] [place] [address] Albumin/Globulin [Mass ratio] 0.9 {ratio} Normal 0.9 - 1.6 [facility] Comment on above: Performed By: #### 2 [id number] #### [facility],[address] [place] [address]137 ALK PHOS 104 U/L Normal 46 - 116 [facility] Comment on above: Performed By: #### 2 06837 #### [facility],[address] [place] [address]163 ALT [Catalytic activity/Vol] 12 U/L Low 16 - 63 [facility] Comment on above: Performed By: #### 2 17330 #### [facility],[address] [place] [address] Anion gap [Moles/Vol] 14 mmol/L Normal 10 - 20 [facility] Comment on above: Performed By: #### 2 59184 #### [facility],[address] [place] [address] AST [Catalytic activity/Vol] 20 U/L Normal 15 - 37 [facility] Comment on above: Performed By: #### 2 92617 #### [facility],[address] [place] [address] B/C RATIO 13 ratio Normal 0 - 30 [facility] Comment on above: Performed By: #### 2 31560 #### [facility],[address] [place] [address] Bilirubin [Mass/Vol] 1.4 mg/dL High 0.2 - 1.0 [facility] Comment on above: Performed By: #### 2 52071 #### [facility],[address] [place] [address] Calcium [Mass/Vol] 9.2 mg/dL Normal 8.5 - 10.1 [facility] Comment on above: Performed By: #### 2 02578 #### [facility],[address] [place], [place] [id number] Chloride [Moles/Vol] 105 mmol/L Normal 98 - 107 [facility] Comment on above: Performed By: #### 2 83867 #### [facility],[address] [place], [place] [id number] CMP with eGFR Normal [facility] Comment on above: Result Comment: COMP REHENSIVE METABOLIC PANEL Performed By: #### 2 60578 #### [facility],[address] [place] [address] CO2 [Moles/Vol] 26.8 mmol/L Normal 21.0 - 32.0 [facility] Comment on above: Performed By: #### 2 52416 #### [facility],[address] [place], [place] [id number] Creatinine [Mass/Vol] 1.49 mg/dL High 0.70 - 1.30 [facility] Comment on above: Performed By: #### 2 05831 #### [facility],[address] [place] [address]092 eGFR 45 ML/MINUTE Low 60 - 999 [facility] Comment on above: Performed By: #### 2 36438 #### [facility],[address] [place] [address] eGFR(AA) 55 ML/MINUTE Low 60 - 999 [facility] Comment on above: Result Comment: ACCO RDING TO THE NATIONAL KIDNEY DISEASE EDUCATION PROGRAM(NKDE), A NORMAL eGFR IS A VALUE GREATER THAN OR EQUAL TO 60 ML/MIN/1.73 SQ METERS. CHRONIC KIDNEY DISEASE: <60mL/MIN/1.73 SQ METERS KIDNEY FAILURE: <15mL/MIN/1.73 SQ METERS THIS TEST SHOULD ONLY BE USED FOR PATIENTS 18 YEARS OF AGE AND OLDER. Performed By: #### 2 95468 #### [facility],[address] [place] [address] Globulin (S) [Mass/Vol] 3.7 g/dL Normal 1.5 - 3.8 [facility] Comment on above: Performed By: #### 2 23136 #### [facility],[address] [place] [address] Glucose [Mass/Vol] 141 mg/dL High 74 - 106 [facility] Comment on above: Performed By: #### 2 96670 #### [facility],[address] [place] [address] Potassium [Moles/Vol] 3.8 mmol/L Normal 3.5 - 5.1 [facility] Comment on above: Performed By: #### 2 90219 #### [facility],[address] [place] [address] Protein [Mass/Vol] 7.2 g/dL Normal 6.4 - 8.2 [facility] Comment on above: Performed By: #### 2 22281 #### [facility],[address] [place] [address] Sodium [Moles/Vol] 142 mmol/L Normal 136 - 145 [facility] Comment on above: Performed By: #### 2 38148 #### [facility],[address] [place] [address] Urea nitrogen [Mass/Vol] 20 mg/dL High 7 - 18 [facility] Comment on above: Performed By: #### 2 09145 #### [facility],[address] [place] [address] HEMOGLOBIN A1C (POM)on 04-21 Glucose [Mass/Vol] 145.6 mg/dL High 0.0 - 0.0 [facility] Comment on above: Result Comment: BLDo HEMOGLOBIN A1C REFERENCE RANGESBLDo Suggested Diagnosis HbA1c(%) HbA1C (mmol/mol Diabetic >/=6.5 >/=48 Prediabetes 5.7 - 6.4 39 - 47 Normal <5.7 <39 Performed By: #### 2 17157 #### [facility],[address] [place] [address] HbA1c (Bld) [Mass fraction] 6.7 % High 0.0 - 6.5 [facility] Comment on above: Performed By: #### 2 46357 #### [facility],[address] [place] [address] LIPID PROFILEon 04-21-2024 Cholesterol [Mass/Vol] 110 mg/dL Normal 0 - 240 [facility] Comment on above: Performed By: #### 2 49349 #### [facility],[address] [place] [address] Cholesterol in HDL [Mass/Vol] 31 mg/dL Low 40 - 60 [facility] Comment on above: Performed By: #### 2 40494 #### [facility],[address] [place] [address] Cholesterol in LDL [Mass/Vol] 41 mg/dL Normal 0 - 129 [facility] Comment on above: Performed By: #### 2 70238 #### [facility],[address] [place] [address] Cholesterol.total/Cho lesterol in HDL [Mass ratio] 3.5 {ratio} Normal 0.0 - 5.0 [facility] Comment on above: Performed By: #### 2 [id number] #### [facility],[address] [place] [address] Lipid 1996 panel Normal [facility] Comment on above: Result Comment: LIPI D PROFILE Performed By: #### 2 [id number] #### [facility],[address] [place] [address] Triglyceride [Mass/Vol] 189 mg/dL High 0 - 150 [facility] Comment on above: Performed By: #### 2 50932 #### [facility],[address] [place] [address] TSHon 04-21-2024 TSH Qn 1.80 m[IU]/L Normal 0.35 - 3.74 [facility] Comment on above: Performed By: #### 2 74788 #### [facility],[address] [place] [address] VITAMIN D, 25 HYDROXYon 04-08 VitD 30.60 ng/mL Normal 30.00 - 100 [facility] Comment on above: Result Comment: 25-O HD3 [...] D2 Not Established Performed By: #### 2 [id number] #### [facility],[address] [place] [address] BMP with eGFRon 04-20-2024 AGE 79 years Normal [facility] Comment on above: Performed By: #### 2 90236 #### [address] [address] Anion gap [Moles/Vol] 14 mmol/L Normal 10 - 20 [facility] Comment on above: Performed By: #### 2 27593 #### [address] [address] BMP with eGFR Normal [facility] Comment on above: Result Comment: BASI C METABOLIC PANEL Performed By: #### 2 57561 #### [address] [address] Calcium [Mass/Vol] 8.7 mg/dL Normal 8.5 - 10.1 [facility] Comment on above: Performed By: #### 2 55780 #### [address] [address] Chloride [Moles/Vol] 107 mmol/L Normal 98 - 107 [facility] Comment on above: Performed By: #### 2 34815 #### [facility],[address] [place] [address] CO2 [Moles/Vol] 26.9 mmol/L Normal 21.0 - 32.0 [facility] Comment on above: Performed By: #### 2 00901 #### [facility],[address] [place] [address] Creatinine [Mass/Vol] 1.43 mg/dL High 0.70 - 1.30 [facility] Comment on above: Performed By: #### 2 71869 #### [facility],[address] [place] [address] eGFR 48 ML/MINUTE Low 60 - 999 [facility] Comment on above: Performed By: #### 2 62505 #### [facility],[address] [place] [address] eGFR(AA) 58 ML/MINUTE Low 60 - 999 [facility] Comment on above: Result Comment: ACCO RDING TO THE NATIONAL KIDNEY DISEASE EDUCATION PROGRAM(NKDE), A NORMAL eGFR IS A VALUE GREATER THAN OR EQUAL TO 60 ML/MIN/1.73 SQ METERS. CHRONIC KIDNEY DISEASE: <60mL/MIN/1.73 SQ METERS KIDNEY FAILURE: <15mL/MIN/1.73 SQ METERS THIS TEST SHOULD ONLY BE USED FOR PATIENTS 18 YEARS OF AGE AND OLDER. Performed By: #### 2 10607 #### [facility],[address] [place] [address] Glucose [Mass/Vol] 152 mg/dL High 74 - 106 [facility] Comment on above: Performed By: #### 2 82251 #### [facility],[address] [place] [address] Potassium [Moles/Vol] 3.8 mmol/L Normal 3.5 - 5.1 [facility] Comment on above: Performed By: #### 2 72245 #### [facility],[address] [facility] [address] Sodium [Moles/Vol] 144 mmol/L Normal 136 - 145 [facility] Comment on above: Performed By: #### 2 21906 #### [facility],[address] [facility] [address] Urea nitrogen [Mass/Vol] 21 mg/dL High 7 - 18 [facility] [facility] Comment on above: Performed By: #### 2 [id number] #### [facility],[address] [place] [id number] Bedside Glucoseon 04-18-2024 FINGERSTICK GLU 150 mg/dL High 74-106 [facility] Comment on above: Result Comment: DAVID REED OF PATIENT CARE PER NURSING PROTOCOL Performed By: #### L 500.4050, L100.0100 #### [facility] [address] [place], [address] Basic Metabolic Profile (BMP )on 04-17-2024 BUN/CRE 17.5 RATIO Normal 10-20 [facility] Comment on above: Performed By: #### L 500.4050, L100.0100 #### [facility] [address] [place], [address] CA,Total 8.9 mg/dL Normal 8.5-10.1 [facility] Comment on above: Performed By: #### L 500.4050, L100.0100 #### [facility] [address] [place], [address] Chloride [Moles/Vol] 107 mmol/L Normal 98-107 [facility] Comment on above: Performed By: #### L 500.4050, L100.0100 #### [facility] [address] [place], [address] CO2 [Moles/Vol] 26.0 mmol/L Normal 21.0-32.0 [facility] Comment on above: Performed By: #### L 500.4050, L100.0100 #### [facility] [address] [place], [address] Creatinine [Mass/Vol] 1.54 mg/dL High 0.70-1.30 [facility] Comment on above: Result Comment: The validity of the calculated GFR GFRAA in patients over 70 years has not been determined. Clinical correlation is essential. Performed By: #### L 500.4050, L100.0100 #### [facility] [address] [place], [address] ECRCL 43.21 ml/min Normal [facility] Comment on above: Performed By: #### L 500.4050, L100.0100 #### [facility] [address] [place], [address] EST GFR - AA 56 mL/min Low >60 [facility] Comment on above: Result Comment: Afri can [place]er GFR Calc Performed By: #### L 500.4050, L100.0100 #### [facility] [address] [place], [address] GAP 6 Normal 5-15 [facility] Comment on above: Performed By: #### L 500.4050, L100.0100 #### [facility] [address] [place], [address] GFR/1.73 sq M.predicted among non-blacks MDRD (S/P/Bld) [Vol rate/Area] 47 mL/min/{1.73_m2} Low >60 [facility] Comment on above: Result Comment: Non- GFR Calc Performed By: #### L 500.4050, L100.0100 #### [facility] [address] [place], [address] Glucose [Mass/Vol] 136 mg/dL High 74-106 [facility] Comment on above: Result Comment: Fast ing Glucose result greater than or equal to 126 mg/dL suggests DIABETES MELLITUS per A.D.A. criteria. Performed By: #### L 500.4050, L100.0100 #### [facility] [address] [place], [address] Potassium [Moles/Vol] 3.6 mmol/L Normal 3.5-5.1 [facility] Comment on above: Performed By: #### L 500.4050, L100.0100 #### [facility] [address] [place], [address] Sodium [Moles/Vol] 139 mmol/L Normal 136-145 [facility] Comment on above: Performed By: #### L 500.4050, L100.0100 #### [facility] [address] [place], [address] Urea nitrogen [Mass/Vol] 27 mg/dL High 7-18 [facility] Comment on above: Performed By: #### L 500.4050, L100.0100 #### [facility] [address] [place], [address] Bedside Glucoseon 04-17-2024 FINGERSTICK GLU 179 mg/dL High 74-106 [facility] Comment on above: Result Comment: DAVID GEMENT OF PATIENT CARE PER NURSING PROTOCOL Performed By: #### L 500.4050, L100.0100 #### [facility] [address] [place], [address] FINGERSTICK GLU 164 mg/dL High 74-106 [facility] Comment on above: Result Comment: DAVID GEMENT OF PATIENT CARE PER NURSING PROTOCOL Performed By: #### L 501.080 #### [facility] [address] [place], [address] FINGERSTICK GLU 125 mg/dL High 74-106 [facility] Comment on above: Result Comment: DAVID GEMENT OF PATIENT CARE PER NURSING PROTOCOL Performed By: #### L 500.4050, L100.0100 #### [facility] [address] [place], [address] Basic Metabolic Profile (BMP )on 04-16-2024 BUN/CRE 18.2 RATIO Normal 10-20 [facility] Comment on above: Performed By: #### L 500.4050, L100.0100 #### [facility] [address] [place], [address] CA,Total 9.0 mg/dL Normal 8.5-10.1 [facility] Comment on above: Performed By: #### L 500.4050, L100.0100 #### [facility] [address] [place], [address] Chloride [Moles/Vol] 106 mmol/L Normal 98-107 [facility] Comment on above: Performed By: #### L 500.4050, L100.0100 #### [facility] [address] [place], [address] CO2 [Moles/Vol] 29.0 mmol/L Normal 21.0-32.0 [facility] Comment on above: Performed By: #### L 500.4050, L100.0100 #### [facility] [address] [place], [address] Creatinine [Mass/Vol] 1.87 mg/dL High 0.70-1.30 [facility] Comment on above: Result Comment: The validity of the calculated GFR GFRAA in patients over 70 years has not been determined. Clinical correlation is essential. Performed By: #### L 500.4050, L100.0100 #### [facility] [address] [place], [address] ECRCL 35.58 ml/min Normal [facility] Comment on above: Performed By: #### L 500.4050, L100.0100 #### [facility] [address] [place], [address] EST GFR - AA 45 mL/min Low >60 [facility] Comment on above: Result Comment: Afri can [place] GFR Calc Performed By: #### L 500.4050, L100.0100 #### [facility] [address] [place], [address] GAP 4 Low 5-15 [facility] Comment on above: Performed By: #### L 500.4050, L100.0100 #### [facility] [address] [place], [address] GFR/1.73 sq M.predicted among non-blacks MDRD (S/P/Bld) [Vol rate/Area] 37 mL/min/{1.73_m2} Low >60 [facility] Comment on above: Result Comment: Non- GFR Calc Performed By: #### L 500.4050, L100.0100 #### [facility] [address] [place], [address] Glucose [Mass/Vol] 131 mg/dL High 74-106 [facility] Comment on above: Result Comment: Fast ing Glucose result greater than or equal to 126 mg/dL suggests DIABETES MELLITUS per A.D.A. criteria. Performed By: #### L 500.4050, L100.0100 #### [facility] [address] [place], [address] Potassium [Moles/Vol] 4.0 mmol/L Normal 3.5-5.1 [facility] Comment on above: Performed By: #### L 500.4050, L100.0100 #### [facility] [address] [place], [address] Sodium [Moles/Vol] 139 mmol/L Normal 136-145 [facility] Comment on above: Performed By: #### L 500.4050, L100.0100 #### [facility] [address] [place], [address] Urea nitrogen [Mass/Vol] 34 mg/dL High 7-18 [facility] Comment on above: Performed By: #### L 500.4050, L100.0100 #### [facility] [address] [place], [address] Bedside Glucoseon 04-16-2024 FINGERSTICK GLU 124 mg/dL High 74-106 [facility] Comment on above: Result Comment: DAVID GEMENT OF PATIENT CARE PER NURSING PROTOCOL Performed By: #### L 500.4050, L100.0100 #### [facility] [address] [place], [address] FINGERSTICK GLU 180 mg/dL High 74-106 [facility] Comment on above: Result Comment: DAVID GEMENT OF PATIENT CARE PER NURSING PROTOCOL Performed By: #### L 501.080 #### [facility] [address] [place], [address] FINGERSTICK GLU 185 mg/dL High 74-106 [facility] Comment on above: Result Comment: DAVID GEMENT OF PATIENT CARE PER NURSING PROTOCOL Performed By: #### L 500.4050, L100.0100 #### [facility] [address] [place], [address] FINGERSTICK GLU 141 mg/dL High 74-106 [facility] Comment on above: Result Comment: DAVID GEMENT OF PATIENT CARE PER NURSING PROTOCOL Performed By: #### L 500.4050, L100.0100 #### [facility] [address] [place], [address] CBC-Complete Blood Cnt No Di ffon 04-16-2024 Erythrocyte distribution width (RBC) [Ratio] 13.8 % Normal 11.6-14.6 [facility] Comment on above: Performed By: #### L 500.4050, L100.0100 #### [facility] [address] [place], [address] Hematocrit (Bld) [Volume fraction] 43.7 % Normal 40-54 [facility] Comment on above: Performed By: #### L 500.4050, L100.0100 #### [facility] [address] [place], [address] Hemoglobin (Bld) [Mass/Vol] 14.3 g/dL Normal 13.0-16.5 [facility] Comment on above: Performed By: #### L 500.4050, L100.0100 #### [facility] [address] [place], [address] MCH (RBC) [Entitic mass] 31.3 pg Normal 27.0-32.0 [facility] Comment on above: Performed By: #### L 500.4050, L100.0100 #### [facility] [address] [place], [address] MCHC (RBC) [Mass/Vol] 32.7 g/dL Normal 32-36 [facility] Comment on above: Performed By: #### L 500.4050, L100.0100 #### [facility] [address] [place], [address] MCV (RBC) [Entitic vol] 95.6 fL High 80-94 [facility] Comment on above: Performed By: #### L 500.4050, L100.0100 #### [facility] [address] [place], [address] Platelet mean volume (Bld) [Entitic vol] 10.6 fL Normal 6.2-12.0 [facility] Comment on above: Performed By: #### L 500.4050, L100.0100 #### [facility] [address] [place], [address] Platelets (Bld) [#/Vol] 126 10*3/uL Low 150-450 [facility] Comment on above: Performed By: #### L 500.4050, L100.0100 #### [facility] [address] [place], [address] RBC (Bld) [#/Vol] 4.57 10*6/uL Low 4.6-6.2 [facility] Comment on above: Performed By: #### L 500.4050, L100.0100 #### [facility] [address] [place], [address] RDW SD 48.6 fl High 35.1-43.9 [facility] Comment on above: Performed By: #### L 500.4050, L100.0100 #### [facility] [address] [place], [address] WBC (Bld) [#/Vol] 6.0 10*3/uL Normal 4.4-11.0 [facility] Comment on above: Performed By: #### L 500.4050, L100.0100 #### [facility] [address] [place], [address] Bedside Glucoseon 04-15-2024 FINGERSTICK GLU 205 mg/dL High 74-106 [facility] Comment on above: Result Comment: DAVID GEMENT OF PATIENT CARE PER NURSING PROTOCOL Performed By: #### L 501.080 #### [facility] [address] [place], [address] FINGERSTICK GLU 149 mg/dL High 74-106 [facility] Comment on above: Result Comment: DAVID GEMENT OF PATIENT CARE PER NURSING PROTOCOL Performed By: #### L 500.4050, L100.0100 #### [facility] [address] [place], [address] FINGERSTICK GLU 218 mg/dL High 74-106 [facility] Comment on above: Result Comment: DAVID GEMENT OF PATIENT CARE PER NURSING PROTOCOL Performed By: #### L 500.4050, L100.0100 #### [facility] [address] [place], [address] FINGERSTICK GLU 155 mg/dL High 74-106 [facility] Comment on above: Result Comment: DAVID REED OF PATIENT CARE PER NURSING PROTOCOL Performed By: #### L 500.4050, L100.0100 #### [facility] [address] [place], [address] CBC W/Diff, Automatedon 01-0 8-2024 Absolute Lymph 1.49 X10 3/uL Normal 0.83-4.51 [facility] Comment on above: Performed By: #### L 500.4050, L100.0100 #### [facility] [address] [place], [address] Absolute Neut 4.0 X10 3/uL Normal 2.0-7.7 [facility] Comment on above: Performed By: #### L 500.4050, L100.0100 #### [facility] [address] [place], [address] Basophils/100 WBC (Bld) 0.5 % Normal 0-1 [facility] Comment on above: Performed By: #### L 500.4050, L100.0100 #### [facility] [address] [place], [address] Eosinophils/100 WBC (Bld) 5.6 % High 0-5 [facility] Comment on above: Performed By: #### L 500.4050, L100.0100 #### [facility] [address] [place], [address] Erythrocyte distribution width (RBC) [Ratio] 13.7 % Normal 11.6-14.6 [facility] Comment on above: Performed By: #### L 500.4050, L100.0100 #### [facility] [address] [place], [address] Hematocrit (Bld) [Volume fraction] 44.1 % Normal 40-54 [facility] Comment on above: Performed By: #### L 500.4050, L100.0100 #### [facility] [address] [place], [address] Hemoglobin (Bld) [Mass/Vol] 14.5 g/dL Normal 13.0-16.5 [facility] Comment on above: Performed By: #### L 500.4050, L100.0100 #### [facility] [address] [place], [address] IG% 0.300 Normal 0.0-0.9 [facility] Comment on above: Result Comment: IG% - Immature Granulocytes (promyelocytes, myelocytes and metamyelocytes) > 1% indicates that a LEFT SHIFT is Present. Performed By: #### L 500.4050, L100.0100 #### [facility] [address] [place], [address] Lymphocytes/100 WBC (Bld) 22.4 % Normal 19-41 [facility] Comment on above: Performed By: #### L 500.4050, L100.0100 #### [facility] [address] [place], [address] MCH (RBC) [Entitic mass] 31.0 pg Normal 27.0-32.0 [facility] Comment on above: Performed By: #### L 500.4050, L100.0100 #### [facility] [address] [place], [address] MCHC (RBC) [Mass/Vol] 32.9 g/dL Normal 32-36 [facility] Comment on above: Performed By: #### L 500.4050, L100.0100 #### [facility] [address] [place], [address] MCV (RBC) [Entitic vol] 94.4 fL High 80-94 [facility] Comment on above: Performed By: #### L 500.4050, L100.0100 #### [facility] [address] [place], [address] Monocytes/100 WBC (Bld) 11.6 % High 0-10 [facility] Comment on above: Performed By: #### L 500.4050, L100.0100 #### [facility] [address] [place], [address] Neutrophils/100 WBC (Bld) 59.6 % Normal 47-70 [facility] Comment on above: Performed By: #### L 500.4050, L100.0100 #### [facility] [address] [place], [address] Nucleated RBC (Bld) [#/Vol] 0 10*3/uL Normal 0-5 [facility] Comment on above: Performed By: #### L 500.4050, L100.0100 #### [facility] [address] [place], [address] Platelet mean volume (Bld) [Entitic vol] 10.2 fL Normal 6.2-12.0 [facility] Comment on above: Performed By: #### L 500.4050, L100.0100 #### [facility] [address] [place], [address] Platelets (Bld) [#/Vol] 130 10*3/uL Low 150-450 [facility] Comment on above: Performed By: #### L 500.4050, L100.0100 #### [facility] [address] [place], [address] RBC (Bld) [#/Vol] 4.67 10*6/uL Normal 4.6-6.2 [facility] Comment on above: Performed By: #### L 500.4050, L100.0100 #### [facility] [address] [place], [address] RDW SD 47.8 fl High 35.1-43.9 [facility] Comment on above: Performed By: #### L 500.4050, L100.0100 #### [facility] [address] [place], [address] WBC (Bld) [#/Vol] 6.7 10*3/uL Normal 4.4-11.0 [facility] Comment on above: Performed By: #### L 500.4050, L100.0100 #### [facility] [address] [place], [address] Comprehensive Metabolic Prof ilon 04-15-2024 Albumin [Mass/Vol] 3.2 g/dL Normal 3.2-5.0 [facility] Comment on above: Performed By: #### L 500.4050, L100.0100 #### [facility] [address] [place], [address] Albumin/Globulin [Mass ratio] 1.0 {ratio} Normal 0.9-2.4 [facility] Comment on above: Performed By: #### L 500.4050, L100.0100 #### [facility] [address] [place], [address] ALK P 92 U/L Normal 45-117 [facility] Comment on above: Performed By: #### L 500.4050, L100.0100 #### [facility] [address] [place], [address] ALT [Catalytic activity/Vol] 20 U/L Normal 16-61 [facility] Comment on above: Performed By: #### L 500.4050, L100.0100 #### [facility] [address] [place], [address] AST [Catalytic activity/Vol] 12 U/L Low 15-37 [facility] Comment on above: Performed By: #### L 500.4050, L100.0100 #### [facility] [address] [place], [address] Bilirubin [Mass/Vol] 1.90 mg/dL High 0.20-1.00 [facility] Comment on above: Result Comment: For patients on eltrombopag therapy, use of Dimension [place] TBIL is not recommended. Performed By: #### L 500.4050, L100.0100 #### [facility] [address] [place], [address] BUN/CRE 16.8 RATIO Normal 10-20 [facility] Comment on above: Performed By: #### L 500.4050, L100.0100 #### [facility] [address] [place], [address] CA,Total 9.1 mg/dL Normal 8.5-10.1 [facility] Comment on above: Performed By: #### L 500.4050, L100.0100 #### [facility] [address] [place], [address] Chloride [Moles/Vol] 108 mmol/L High 98-107 [facility] Comment on above: Performed By: #### L 500.4050, L100.0100 #### [facility] [address] [place], [address] CO2 [Moles/Vol] 27.0 mmol/L Normal 21.0-32.0 [facility] Comment on above: Performed By: #### L 500.4050, L100.0100 #### [facility] [address] [place], [address] Creatinine [Mass/Vol] 1.55 mg/dL High 0.70-1.30 [facility] Comment on above: Result Comment: The validity of the calculated GFR GFRAA in patients over 70 years has not been determined. Clinical correlation is essential. Performed By: #### L 500.4050, L100.0100 #### [facility] [address] [place], [address] ECRCL 42.93 ml/min Normal [facility] Comment on above: Performed By: #### L 500.4050, L100.0100 #### [facility] [address] [place], [address] EST GFR - AA 56 mL/min Low >60 [facility] Comment on above: Result Comment: Afri can [place] GFR Calc Performed By: #### L 500.4050, L100.0100 #### [facility] [address] [place], [address] GAP 5 Normal 5-15 [facility] Comment on above: Performed By: #### L 500.4050, L100.0100 #### [facility] [address] [place], [address] GFR/1.73 sq M.predicted among non-blacks MDRD (S/P/Bld) [Vol rate/Area] 46 mL/min/{1.73_m2} Low >60 [facility] Comment on above: Result Comment: Non- GFR Calc Performed By: #### L 500.4050, L100.0100 #### [facility] [address] [place], [address] Globulin (S) [Mass/Vol] 3.2 g/dL Normal 2.2-4.2 [facility] Comment on above: Performed By: #### L 500.4050, L100.0100 #### [facility] [address] [place], [address] Glucose [Mass/Vol] 143 mg/dL High 74-106 [facility] Comment on above: Result Comment: Fast ing Glucose result greater than or equal to 126 mg/dL suggests DIABETES MELLITUS per A.D.A. criteria. Performed By: #### L 500.4050, L100.0100 #### [facility] [address] [place], [address] Potassium [Moles/Vol] 3.9 mmol/L Normal 3.5-5.1 [facility] Comment on above: Performed By: #### L 500.4050, L100.0100 #### [facility] [address] [place], [address] Sodium [Moles/Vol] 140 mmol/L Normal 136-145 [facility] Comment on above: Performed By: #### L 500.4050, L100.0100 #### [facility] [address] [place], [address] T PROT 6.4 g/dL Normal 6.4-8.2 [facility] Comment on above: Performed By: #### L 500.4050, L100.0100 #### [facility] [address] [place], [address] Urea nitrogen [Mass/Vol] 26 mg/dL High 7-18 [facility] Comment on above: Performed By: #### L 500.4050, L100.0100 #### [facility] [address] [place], [address] 12 Lead EKGon 04-14-2024 12 Lead EKG [facility] [address] [place] [address] 12 Lead EKG 04/14/24 1459 MR#: [id number] Acct: [id number] Name: KIMBERLY NAVA Rep #: [id number] : [id number] From: Vikash Quintana MD [...] 15-May-2007) Abnormal ECG Confirmed by Vikash Quintana ([id number]), commercial production editor ENRIQUE METZGER ([id number]) on 04/15/2024 8:26:27 AM Referred By: Confirmed By: Vikash Quintana 04/15/24825 Date Vikash Quintana MD CC: Dr. Buddy Andrews MD; Dr. Kobi Adair MD; Dr. Toshia Pro MD Signed Normal [facility] Basic Metabolic Profile (BMP )on 04-14-2024 BUN/CRE 15.3 RATIO Normal 10-20 [facility] Comment on above: Performed By: #### L 500.2500, L100.0100 #### [facility] [address] [facility] [place], [address] CA,Total 8.7 mg/dL Normal 8.5-10.1 [facility] Comment on above: Performed By: #### L 500.2500, L100.0100 #### [facility] [address] [facility] [place], [address] Chloride [Moles/Vol] 106 mmol/L Normal 98-107 [facility] Comment on above: Performed By: #### L 500.2500, L100.0100 #### [facility] [address] [facility] [place], [address] CO2 [Moles/Vol] 26.0 mmol/L Normal 21.0-32.0 [facility] Comment on above: Performed By: #### L 500.2500, L100.0100 #### [facility] [address] [place], [address] Creatinine [Mass/Vol] 1.70 mg/dL High 0.70-1.30 [facility] Comment on above: Result Comment: The validity of the calculated GFR GFRAA in patients over 70 years has not been determined. Clinical correlation is essential. Performed By: #### L 500.2500, L100.0100 #### [facility] [address] [place], [address] ECRCL 40.90 ml/min Normal [facility] Comment on above: Performed By: #### L 500.2500, L100.0100 #### [facility] [address] [place], [address] EST GFR - AA 50 mL/min Low >60 [facility] Comment on above: Result Comment: Afri can [place] GFR Calc Performed By: #### L 500.2500, L100.0100 #### [facility] [address] [place], [address] GAP 6 Normal 5-15 [facility] Comment on above: Performed By: #### L 500.2500, L100.0100 #### [facility] [address] [place], [address] GFR/1.73 sq M.predicted among non-blacks MDRD (S/P/Bld) [Vol rate/Area] 42 mL/min/{1.73_m2} Low >60 [facility] Comment on above: Result Comment: Non- GFR Calc Performed By: #### L 500.2500, L100.0100 #### [facility] [address] [place], [address] Glucose [Mass/Vol] 194 mg/dL High 74-106 [facility] Comment on above: Result Comment: Fast ing Glucose result greater than or equal to 126 mg/dL suggests DIABETES MELLITUS per A.D.A. criteria. Performed By: #### L 500.2500, L100.0100 #### [facility] [address] [place], [address] Potassium [Moles/Vol] 3.7 mmol/L Normal 3.5-5.1 [facility] Comment on above: Performed By: #### L 500.2500, L100.0100 #### [facility] [address] [place], [address] Sodium [Moles/Vol] 138 mmol/L Normal 136-145 [facility] Comment on above: Performed By: #### L 500.2500, L100.0100 #### [facility] [address] [place], [address] Urea nitrogen [Mass/Vol] 26 mg/dL High 7-18 [facility] Comment on above: Performed By: #### L 500.2500, L100.0100 #### [facility] [address] [place], [address] Bedside Glucoseon - FINGERSTICK GLU 188 mg/dL High 74-106 [facility] Comment on above: Result Comment: DAVID GEMENT OF PATIENT CARE PER NURSING PROTOCOL Performed By: #### L 501.080 #### [facility] [address] [place], [address] FINGERSTICK GLU 106 mg/dL Normal 74-106 [facility] Comment on above: Result Comment: DAVID GEMENT OF PATIENT CARE PER NURSING PROTOCOL Performed By: #### L 501.080 #### [facility] [address] [place], [address] CBC W/Diff, Automatedon - Absolute Lymph 1.32 X10 3/uL Normal 0.83-4.51 [facility] Comment on above: Performed By: #### L 500.2500, L100.0100 #### [facility] [address] [place], [address] Absolute Neut 4.1 X10 3/uL Normal 2.0-7.7 [facility] Comment on above: Performed By: #### L 500.2500, L100.0100 #### [facility] [address] [place], [address] Basophils/100 WBC (Bld) 0.5 % Normal 0-1 [facility] Comment on above: Performed By: #### L 500.2500, L100.0100 #### [facility] [address] [place], [address] Eosinophils/100 WBC (Bld) 4.9 % Normal 0-5 [facility] Comment on above: Performed By: #### L 500.2500, L100.0100 #### [facility] [address] [place], [address] Erythrocyte distribution width (RBC) [Ratio] 13.5 % Normal 11.6-14.6 [facility] Comment on above: Performed By: #### L 500.2500, L100.0100 #### [facility] [address] [place], [address] Hematocrit (Bld) [Volume fraction] 44.3 % Normal 40-54 [facility] Comment on above: Performed By: #### L 500.2500, L100.0100 #### [facility] [address] [place], [address] Hemoglobin (Bld) [Mass/Vol] 14.7 g/dL Normal 13.0-16.5 [facility] Comment on above: Performed By: #### L 500.2500, L100.0100 #### [facility] [address] [place] [place], [address] IG% 0.300 Normal 0.0-0.9 [facility] Comment on above: Result Comment: IG% - Immature Granulocytes (promyelocytes, myelocytes and metamyelocytes) > 1% indicates that a LEFT SHIFT is Present. Performed By: #### L 500.2500, L100.0100 #### [facility] [address] [place], [address] Lymphocytes/100 WBC (Bld) 20.7 % Normal 19-41 [facility] Comment on above: Performed By: #### L 500.2500, L100.0100 #### [facility] [address] [place], [address] MCH (RBC) [Entitic mass] 31.1 pg Normal 27.0-32.0 [facility] Comment on above: Performed By: #### L 500.2500, L100.0100 #### [facility] [address] [place], [address] MCHC (RBC) [Mass/Vol] 33.2 g/dL Normal 32-36 [facility] Comment on above: Performed By: #### L 500.2500, L100.0100 #### [facility] [address] [place], [address] MCV (RBC) [Entitic vol] 93.9 fL Normal 80-94 [facility] Comment on above: Performed By: #### L 500.2500, L100.0100 #### [facility] [address] [place], [address] Monocytes/100 WBC (Bld) 10.0 % Normal 0-10 [facility] Comment on above: Performed By: #### L 500.2500, L100.0100 #### [facility] [address] [place], [address] Neutrophils/100 WBC (Bld) 63.6 % Normal 47-70 [facility] Comment on above: Performed By: #### L 500.2500, L100.0100 #### [facility] [address] [place], [address] Nucleated RBC (Bld) [#/Vol] 0 10*3/uL Normal 0-5 [facility] Comment on above: Performed By: #### L 500.2500, L100.0100 #### [facility] [address] [place], [address] Platelet mean volume (Bld) [Entitic vol] 10.4 fL Normal 6.2-12.0 [facility] Comment on above: Performed By: #### L 500.2500, L100.0100 #### [facility] [address] [place], [address] Platelets (Bld) [#/Vol] 129 10*3/uL Low 150-450 [facility] Comment on above: Performed By: #### L 500.2500, L100.0100 #### [facility] [address] [place], [address] RBC (Bld) [#/Vol] 4.72 10*6/uL Normal 4.6-6.2 [facility] Comment on above: Performed By: #### L 500.2500, L100.0100 #### [facility] [address] [place], [address] RDW SD 46.1 fl High 35.1-43.9 [facility] Comment on above: Performed By: #### L 500.2500, L100.0100 #### [facility] [address] [place], [address] WBC (Bld) [#/Vol] 6.4 10*3/uL Normal 4.4-11.0 [facility] Comment on above: Performed By: #### L 500.2500, L100.0100 #### [facility] [address] [place], [address] Emergency Department Summary on 04-14-2024 Emergency Department Summary [facility] Medical Records Department [address] [place] [address] Emergency Department Summary 04/14/24 MR#: [id number] Acct: [id number] Name: KIMBERLY NAVA Rep #: [id number] : 1945 79 From: Buddy Andrews MD [...] continued left lower extremity pain. [facility] Medical History (Updated 04/14/24 @ 15:01 by [...] PO BID 04/14/24 04/14/24 History mg-copper 1 yu-cdbcoq-okqnfg capsule (PreserVision AREDS-2) Allergy/AdvReac Type Severity Reaction [...] No headaches, (more content not included)... Normal [facility] Extremity Lower without Cont raon 04-14-2024 Extremity Lower without Contra [facility] Imaging Services [address] [place], [place] [id number] Extremity Lower without Contra MR#: [id number] Acct: [id number] Name: KIMBERLY NAVA Rep #: [id number] : 1945 M 79 From: Christin turner MD PCP: Dr. Kobi Adair MD Status: REG ER Study: Extremity Lower without Contra Date of Exam: 0 04/14/24 Exam# [id number] Ordering Dr: Buddy Andrews MD [id number] HISTORY: Trauma, pain. TECHNIQUE: Helically acquired images [...] 13:30 EST Reading Location ID and State: [facility] / [place] Tel , Service support , CC: Dr. Buddy Andrews MD; Dr. Kobi Adair MD Cofounder: Signed Normal [facility] H AND P Exam - Hospitaliston 04-14-2024 H&P Exam - Hospitalist [facility] Medical Records Department [address] [place] [address] H P Exam - Hospitalist 04/14/24 1440 MR#: [id number] Acct: [id number] Name: KIMBERLY NAVA Rep #: [id number] : 1945 79 From: Liliane Lowe MD PCP: Dr. 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 [facility] Medical History Former tobacco use History of [...] PO BID 04/14/24 04/14/24 History mg-copper 1 nn-hnqdfs-nooqoc capsule (PreserVision AREDS-2) Allergy/AdvRea (more content not included)... Normal [facility] HIP, UNI W/ Pelvis 2-3 Views on 04-14-2024 HIP, UNI W/ Pelvis 2-3 Views [facility] Imaging Services [address] [place] [address] HIP, UNI W/ Pelvis 2-3 Views MR#: [id number] Acct: [id number] Name: KIMBERLY NAVA Rep #: [id number] : 1945 M 79 From: Kimberly Howe MD PCP: Dr. Kobi Adair MD Status: REG ER Study: HIP, UNI W/ Pelvis 2-3 Views Date of Exam: 10/30 Exam# [id number] Ordering Dr: Buddy Andrews MD [id number] STUDY: X-RAY - PELVIS AND LEFT HIP [...] 12:13 EST Reading Location ID and State: [address] [place] [address] , Service support , CC: Dr. Buddy Andrews MD; Dr. Kobi Adair MD Cofounder: Signed Normal [facility] Magnesiumon 04-14-2024 Magnesium [Mass/Vol] 2.4 mg/dL Normal 1.6-2.6 [facility] Comment on above: Order Comment: Comme nts: may add to ED labs Performed By: #### L 501.5200 #### [facility] [address] [facility] [place], [address] Ribs Uni Min 3V w/PA Cheston 04-14-2024 Ribs Uni Min 3V w/PA Chest [facility] Imaging Services [address] [facility] [place], [place] [phone] ([address]) Ribs Uni Min 3V w/PA Chest MR#: [id number] Acct: [id number] Name: KIMBERLY NAVA Rep #: [id number] : 1945 M 79 From: Kimberly Howe MD PCP: Dr. Kobi Adair MD Status: REG ER Study: Ribs Uni Min 3V w/PA Chest Date of Exam: 04/14 Exam# [id number] Ordering Dr: Buddy Andrews MD [id number] STUDY: X-RAY - UNILATERAL RIBS ( LEFT [...] Buddy Andrews MD; Dr. Kobi Adair MD Cofounder: Signed [facility] 12-17-2023 [facility] Telephone (INTMWS) KIMBERLY NAVA ([id number]) 1945 M Date Time Provider Department 12/17/23 [...] [facility] but [facility] would not accept as it was signed by ADMISSIONS EVALUATOR not MD. I instructed pt that he [...] Please fax 30 day compliance download to [phone]. Dx: ANABELL, treatment emergent CSA - sertraline [...] of th (more content not included)... Normal [facility] CNOVon 10-28-2023 CNOV Office Visit (CAWSTR ) KIMBERLY NAVA ([id number]) 1945 M Date Time Provider Department 10/28/23 9:40 AM SRIRAM VALLES During your visit today, we recorded the following information about you: Pulse Blood pressure Weight Height 89/minute 133/84 109.1 kg 1.676 m Sriram Valles MD 10/28/2023 10:10 AM Signed Sriram Valles MD Interventional Cardiology [address] [place] [address] [phone] Chief Complaint Patient presents with: Follow Up [...] HOSPITAL - PAST MEDICAL HISTORY OF 2-08 [place] with quad. bypass and valve repair- DVT [...] of Onset None Mother 98 Heart Father [place] AGE 67 Diabetes Father Hypertension Brother Diabetes [...] 200 mcg (more content not included)... Normal [facility] KQJ01qu 10-28-2023 ECG01 Ventricular Rate : 8 9 BPM Atrial Rate : 89 BPM P-R Interval : 162 ms QRS Duration : 84 ms Q-T Interval : 392 ms QTC Calculation(Bazett) : 476 ms Calculated P [place] : 24 degrees Calculated R [place] : -1 degrees Calculated T [place] : 58 degrees NORMAL SINUS RHYTHM POSSIBLE INFERIOR MYOCARDIAL INFARCTION , AGE UNDETERMINED ABNORMAL ECG Confirmed by BLAIR LEON DO ([id number]) on 10/29/2023 8:11:11 AM NAME : KAILEEKIMBERLY PID : [id number] : 1945 Gender : Male Race : ORD : Procedure Date : Oct 28 2023 09:51:50 Edit Date : Oct 29 2023 08:11:14 Diagnosis: NORMAL SINUS RHYTHM POSSIBLE INFERIOR MYOCARDIAL INFARCTION , AGE UNDETERMINED ABNORMAL ECG Confirmed by BLAIR LEON DO ([id number]) on 10/29/2023 8:11:11 AM Test Reason : Location : 136 : [place] Overread By : BLAIR LEON DO Edited By : BLAIR LEON DO Referred By : SRIRAM VALLES Acquired by : Kelsey shi [facility] No Panel Informationon 07-[address] [facility] CNNURSEon 07-13-2020 [facility] Nurse Visit (COVAMD) KIMBERLY NAVA ([id number]) 1945 M Date Time Provider Department 07/13/20 ELOY DASH) PEDRO LUIS During your visit today, we recorded the following information about you: Allergies As of Date: 07/13/2020 Noted Allergy Reaction INHALED ANESTHETICS (HALOGEN BASE*05/28/2007 MEVACOR (LOVASTATIN) 04/11/2007 Comments: Patient's tongue swelled Date Reviewed: 04/22/2020 Reviewed by: Fariha Dennis Ma - Fully Assessed Order(s):Pronutria SARS-COV-2 VACCINE 2D DOSE APPT [[id number]] Order #: [id number] Prescriptions as of 07/13/2020 Sig: LOSARTAN 100 [...] S/P CABG x 4 [Z95.1] 11/10/2019 [facility] (AGCARDWST) ----KIMBERLY NAVA ([id number]) 1945 [facility] Time Provider Department08/20/17 1:30 PM JOVANY MORRISSEY AGCARDWST During your visit today, we recorded the following information about you: Pulse Blood pressure Weight 64/minute 138/78 111.9 kgJovany Morrsisey MD 08/20/2017 2:30 PM SignedPERTINENT CARDIAC HISTORYASHD - CABGx4 2007, PCI 2010MR - MV repair 2007HTNHLHypomagnesemiaCHF - diastolicOSA - CPAPADHERENCE TO GUIDELINESACE-I or ARB for HF with prior LVEF<40 (NQF 0081) - metASA or Plavix for ASHD (NQF 0067) - metBeta ann for ASHD with prior MN or prior LVEF<40 (NQF 0070) - metBeta [...] U-100 INSULIN) 100 unit/mL (3 mL) inpn Dkkres76 Units subcutaneously once daily as directedlevothyroxine (SYNTHROID) 125 mcg tablet Take 1.5 tablets by mouth daily beforebreakfast. Total daily dose is 187 mcg. Fax updated dose to [facility] [phone] HFA (PROAIR HFA) 90 mcg/actuation inhaler Inhale [...] cmH2O. Please fax 30 day compliancedownload to [phone]. Dx: ANABELL, treatment emergent CSAsertraline (ZOLOFT) 50 [...] Overall ejection fraction wasnormal.Electronically Signed:Jodi Hernandes2017 1:50 [facility]: Amy Guo MD 08/20/2017 1:50 PM SignedLIFESTYLE [...] programs in your area.Referring Provider: JOVANY MORRISSEY [[id number]]Allergies As of Date: 08/20/2017 Noted Allergy ReactionINHALED [...] the following areas and commit to making termite control service representative changes. EAT A WHOLE FOOD, PLANT BASED [...] Status:Closed by JOVANY MORRISSEY MD on 08/20/17 [facility] PROGRESSon 08-20-2017 PROGRESS HNO ID: [id number] thor: Jovany Sin: (none)Author Type: PhysicianType: Progress NotesFiled: 08/20/2017 2:30 PMNote Text:PERTINENT CARDIAC HISTORYASHD - CABGx4 2007, PCI 2011MR - MV repair 2008HTNHLHypomagnesemiaCHF - diastolicOSA - CPAPADHERENCE TO GUIDELINESACE-I or ARB for HF with prior LVEF<40 (NQF 0081) - metASA or Plavix for ASHD (NQF 0067) - metBeta ann for ASHD with prior MN or prior LVEF<40 (NQF 0070) - metBeta [...] 187 mcg. Fax updated dose to [facility] [phone] HFA (PROAIR HFA) 90 mcg/actuation inhaler Inhale [...] cmH2O. Please fax 30 daycompliance download to [phone]. Dx: ANABELL, treatment emergent CSAsertraline (ZOLOFT) 50 [...] ejectionfraction was normal.Electronically Signed:Jovany Morrissey, MDMa2017 1:50 [facility] Nikia Adair MD [facility] CNOVon 02-20-2017 [facility] Office Visit (AGCARDWST) ----KIMBERLY NAVA ([id number]) 1945 [facility] Pexaatpgkr42/15/17 11:30 AM JOVANY MORRISSEYWSIssac During your visit [...] - metBeta ann for ASHD with prior MN or prior LVEFANDlt;40 (NQF 0070) - metBeta [...] with treatment plan.This note was generated using Gennius voice recognition system, and there may besome [...] cmH2O. Please fax 30 day compliancedownload to [phone]. Dx: ANABELL, treatment emergent CSACPAP Please dispense [...] PMH - PAST MEDICAL HISTORY OF 2- [place] with quad. 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 [place] MarriedREVIEW OF SYSTEMS: General: No chills, fever, [...] normal.Electronically Signed:Jovany Morrissey MDFebruary 20, 2017 11:51 [facility]:Amy ANTONIO MD 02/20/2017 11:57 AM SignedLIFESTYLE CHANGEA [...] programs in your area.Referring Provider: JOVANY MORRISSEY [[id number]]Allergies As of Date: 02/20/2017 Noted Allergy ReactionALBUTEROL 05/06/2007 12 - Shortness of BreathINHALED ANESTHETICS (HALOGEN BASE*05/28/2007MEVACOR (LOVASTATIN) 04/11/2007 Comments: Patient's tongue swelledDate Reviewed: 02/20/2017Reviewed by: Edwar Wright) STEPHON Fink - Fully AssessedReason for Visit: Follow Up [171] Cmt: 8 monthPrimary Visit Diagnosis:Hypertension, essential [I10] Other Visit Diagnoses:ASHD (arteriosclerotic heart disease) [I25.10] Chronic diastolic CHF (congestive heart failure) ([facility]) [I50.32]Order(s):ECG B/O W INTERP (MED OFFICE) [ECG06] Order #: [id number] NM CARDIAC PERF STRESS/PHARM [[id number]] Order #: [id number] FUTURE regadenoson (LEXISCAN) 0.4 mg/5 mL syrgInject 5 mL intravenously one time only for 1 dose. Give IV push over 10 seconds and follow with 5 ml of normal salineDisp: 5 mLRfl: 0 IV START - SPECIFY [[id number]] Order #: [id number]: 1 IV DISCONTINUE [[id number]] Order #: [id number]: 1Prescriptions as of 02/20/2017 Sig: LEVOTHYROXINE 200 [...] the following areas and commit to making fdc changes. EAT A WHOLE FOOD, PLANT BASED [...] SmartForms filed during this visit:Extended VitalsEncounter Number: [id number] Status:Closed by JOVANY MORRISSEY MD on 02/20/17 Normal [facility] PROGRESSon 02-20-2017 PROGRESS HNO ID: [id number] thor: Jovany Sin: (none)Author Type: PhysicianType: Progress NotesFiled: 02/20/2017 12:07 PMNote Text:PERTINENT CARDIAC HISTORYASHD - CABGx4 2007, PCI 2011MR - MV repair 2007HTNHLHypomagnesemiaCHF - diastolicOSA - CPAPADHERENCE TO GUIDELINESACE-I or ARB for HF with prior LVEF<40 (NQF 0081) - metASA or Plavix for ASHD (NQF 0067) - metBeta ann for ASHD with prior MN or prior LVEF<40 (NQF 0070) - metBeta [...] with treatment plan.This note was generated using Gennius voice recognition system, and theremay be some [...] cmH2O. Please fax 30 daycompliance download to [phone]. Dx: ANABELL, treatment emergent CSACPAP Please dispense [...] PMH - PAST MEDICAL HISTORY OF 05-21-07 [place] with quad. bypass and valve repair- DVT after- Pure hypercholesterolemia- Restless leg syndrome- Rheum heart dis NEC/NOS CHILD Rheumatic fever- Sciatica- Sensorineural hearing loss, unspecified Sensorineural hearing loss- Stable angina (HCC)- Tobacco use disorder- Unspecified essential hypertension- Unspecified tinnitus TinnitusPAST SURGICAL HISTORYProcedure Laterality Date- COLONOSCOP W/ OR W/O [facility] SPEC 09/28/05- COLONOSCOP W/ OR W/O [facility] SPEC 04-12-15- HEMORRHOIDECTOMY,INT/EXT,COMP LX 04-20-15 Dr. 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 Kobi Adair MD Work Phone: [facility] 09-23-2024 20:06-0400 Diastolic blood pressure 95 mm[Hg] Dr. Kobi Adair MD Work Phone: [facility] 09-23-2024 20:06-0400 Heart rate 85 /min Dr. Kobi Adair MD Work Phone: [facility] 09-23-2024 20:06-0400 Respiratory rate 18 /min Dr. Kobi Adair MD Work Phone: [facility] 09-23-2024 20:06-0400 SaO2% (BldA) [Mass fraction] 96 % Dr. Kobi Adair MD Work Phone: [facility] 09-23-2024 20:06-0400 Systolic blood pressure 158 mm[Hg] Dr. Kobi Adair MD Work Phone: [facility] 09-23-2024 13:13-0400 Body height 170.[address] Kobi Adair MD Work Phone: [facility] 09-23-2024 13:13-0400 Body mass index (BMI) [Ratio] 35.7 kg/m2 Dr. Kobi Adair MD Work Phone: [facility] 09-23-2024 13:13-0400 Body weight 103.[address] Kobi Adair MD Work Phone: [facility] 10-28-2023 09:48-0400 Body height 167.6 cm Sriram Valles MD Work Phone: [facility] 10-28-2023 09:48-0400 Body mass index (BMI) [Ratio] 38.83 kg/m2 Sriram Valles MD Work Phone: [facility] 10-28-2023 09:48-0400 Body weight 109.14 kg Sriram Valles MD Work Phone: [facility] 10-28-2023 09:48-0400 Diastolic blood pressure 84 mm[Hg] Sriram Valles MD Work Phone: [facility] 10-28-2023 09:48-0400 Heart rate 89 /min Sriram Valles MD Work Phone: [facility] 10-28-2023 09:48-0400 SaO2% (BldA) [Mass fraction] 97 % Sriram Valles MD Work Phone: [facility] 10-28-2023 09:48-0400 Systolic blood pressure 133 mm[Hg] Sriram Valles MD Work Phone: [facility] 05-14-2022 09:37-0500 Body weight 110.22 kg Sriram Valles MD Work Phone: [facility] 05-14-2022 09:37-0500 Diastolic blood pressure 80 mm[Hg] Sriram Valles MD Work Phone: [facility] 05-14-2022 09:37-0500 Heart rate 92 /min Sriram Valles MD Work Phone: [facility] 05-14-2022 09:37-0500 SaO2% (BldA) [Mass fraction] 96 % Sriram Valles MD Work Phone: [facility] 05-14-2022 09:37-0500 Systolic blood pressure 118 mm[Hg] Sriram Valles MD Work Phone: [facility] Encounters Encounter Date Encounter Type Care Provider Facility Start: 09-23-2024 Evaluation and manag ement of inpatient Dr. Cory Conteh MD -Medical Surgical 3 Work Phone: Start: 04-20-2024 End: 05-07-2024 ambulatory ESSIE ELAM [facility] Start: 04-14-2024 ambulatory Liliane Lowe Facility :[facility] Start: 04-14-2024 End: 04-18-2024 Evaluation and management of inpatient Kobi Adair Facility:[facility] Start: 12-17-2023 End: 12-17-2023 Telephone encounter Nikia Adair MD Work Phone: Internal Medicine [place] Comment on above: Letter Start: 11-07-2023 Patient encounter procedure [facility] Provider 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 standing rock heart without angina pectoris (Primary Dx); Mixed [...] Subsequent hospital visit by physician Injection N[facility] Work Phone: Nuclear Medicine Comment on above: Shortness of breath [R06.02] Start: 07-05-2022 ambulatory Nurse Card Adm in [facility] Work Phone: Cardiology Comment on above: Stress Test Instruct ions Start: 07-05-2022 E-mail encounter zita rock caregiver Nurse Card Admin [facility] Work Phone: [facility] Start: 05-14-2022 End: 05-14-2022 Patient encounter procedure Sriram Valles MD Work Phone: Cardiology Comment on above: Screening for ischem ic heart disease (Primary Dx); Shortness of breath; Hypertensive heart disease with diastolic heart failure (HCC); Mixed hyperlipidemia; S/P CABG x 4 Start: 04-04-2022 ambulatory Claudia Henriquez [facility] Comment on above: Population Health Na v[facility] [...] 11-06-2021 Subsequent hospital visit by physician [facility] ([facility]) Work Phone: Cat Scan Comment on above: Lung nodules [R91.8] Start: 10-24-2021 ambulatory Nikia Adair MD Work Phone: Internal Medicine [place] Start: 09-11-2021 Telephone encounter Carolina castellanos MEDICAL DOCTOR NUCLEAR MEDICINE.SECURITY PATROL DRIVER Work Phone: Family Medicine [place] Comment on above: Results Start: 08-16-2021 Telephone encounter Clint Pablo MD Work Phone: Radiation Oncology Comment on above: Patient Update Start: 07-27-2021 Telephone encounter Clint Pablo MD Work Phone: Radiation Oncology Comment on above: change appointment Start: 04-22-2018 Ambulatory JOVANY MORRISSEY Facility :[facility] Start: 08-20-2017 End: 08-20-2017 Ambulatory JOVANY Fishman [facility] Start: 02-20-2017 End: 02-20-2017 [facility] JOVANY Kye [facility] Start: 01-09-2017 Ambulatory JOVANY MORRISSEY [facility] Procedures Date Procedure Procedure Detail Performing [...] w/o contra st material Carolina Rice MEDICAL DOCTOR NUCLEAR MEDICINE.SECURITY PATROL DRIVER Work Phone: Start: 11-10-2019 History of coronary [...] P,Tdap,Td Vaccine (4 - Td or Tdap) [facility] Start: 02-04-2028 Urine microalbumin profile [facility] Start: 12-11-2024 Glaucoma screening Dilated Retinal E xam [facility] Start: 10-27-2024 End: 10-27-2024 Echocardiography ECHO Cardiology Routine Hypertensive heart disease with diastolic heart failure (HCC) Mitral valve disorder Expected: 10/27/2024, Expires: 10/27/[address] [facility] Comment on above: Expected: 10/27/2024 , Expires: 10/27/2024 Start: 10-26-2024 End: 10-26-2024 Patient encounter procedure 10/26/2024 1:40 PM EDT Office Visit Cardiology [address] [place] [id number] Sriram Valles MD [address] [facility], [address] [place] [address] 1 year follow up Cardiology Comment on above: 1 year follow up Start: 09-23-2024 Hospital admission, emergency, from emergency room, medical nature [facility] Start: 09-08-2024 End: 09-08-2024 Patient encounter procedure 09/08/2024 9:40 AM EDT Office Visit Cardiology [address] [place], [place] [id number] Hypertensive heart disease with diastolic heart failure (HCC) [I11.0, I50.30] Cardiology Comment on above: Hypertensive heart d isease with diastolic heart failure (HCC) [I11.0, I50.30] Start: 12-08-2023 Covid-19 Vaccine ( season) Covid-19 Vaccine ( season) [facility] Start: 12-08-2023 Influenza vaccination Influenza Vacc ine (#1) [facility] Start: 10-28-2023 End: 10-23-2024 ECG COMPLETE [facility] Work Phone: Comment on above: Expected: 10/28/2023 , Expires: 10/23/2024 Start: 07-11-2023 Glaucoma screening Dilated Retinal E xam [facility] Start: 07-11-2023 Hepatitis C antibody , confirmatory test Dilated Retinal Exam [facility] Start: 05-10-2023 Ct thorax w/o contra st material CT CHEST WO IVCON Radiology Routine Lung nodules Expected: 05/10/2023 [facility] Work Phone: Comment on above: Expected: 05/10/2023 Start: 04-08-2023 Advance Directive Discussion Advance Directive Discussion [facility] Start: 01-29-2023 3 comp foot exam completed DIABETIC FOOT EXAM [facility] Start: 01-29-2023 Diabetic foot examination Diabetic F oot Exam [facility] Start: 12-07-2022 Covid-19 Vaccine ( season) Covid-19 Vaccine () [facility] Start: 12-07-2022 Covid-19 Vaccine () Covid-19 Vaccine () [facility] Start: 12-07-2022 Influenza vaccination C [facility] Start: 09-08-2022 ANNUAL PCP TEAM CONTINUOUS PROCESS COFFEE ROASTER SCOOTER DISEASE VISIT ANNUAL PCP TEAM CHRONIC DISEASE VISIT [facility] Start: 09-08-2022 BP CONTROLLED (<130/80) BP CON TROLLED (<130/80) [facility] Start: 05-29-2022 ANNUAL PCP TEAM CONTINUOUS PROCESS COFFEE ROASTER SCOOTER DISEASE VISIT ANNUAL PCP TEAM CHRONIC DISEASE VISIT [facility] Start: 05-29-2022 BP CONTROLLED (<130/80) BP CON TROLLED (<130/80) [facility] Start: 05-21-2022 End: 05-14-2023 Echocardiography ECHO Cardiology Routine Shortness of breath Expected: 05/21/2022, Expires: 05/14/2023 [facility] Work Phone: Comment on above: Expected: 05/21/2022 , Expires: 05/14/2023 Start: 04-08-2022 ADVANCE DIRECTIVE DISCUSSION ADVANCE DIRECTIVE DISCUSSION [facility] Start: 03-10-2022 Hemoglobin A1c measurement HbA1C [facility] Start: 03-10-2022 Hemoglobin A1c/Hemoglobin.total in Blood HBA1C [facility] Start: 12-07-2021 Influenza vaccination INFLUENZA (#1) [facility] Start: 11-09-2021 Hepatitis B screening URINE ALBUMIN:CREATININE RATIO [facility] Start: 11-09-2021 Hepatitis B surface antibody level LDL CHOLESTEROL [facility] Start: 10-24-2021 End: 12-24-2021 ALBUMIN/CREAT RATIO RND UR ALBUMIN/CREAT RATIO RND UR Lab Routine Type 2 diabetes mellitus with diabetic nephropathy, with long-term current use of insulin (HCC) Expected: 10/24/2021, Expires: 12/24/2021 [facility] Work Phone: Comment on above: Expected: 10/24/2021 , Expires: 12/24/2021 Start: 10-24-2021 End: 12-24-2021 SCHEDULE LAB TESTING SCHEDULE LAB TESTING Lab Routine Expected: 10/24/2021, Expires: 12/24/2021 [facility] Work Phone: Comment on above: Expected: 10/24/2021 , Expires: 12/24/2021 Start: 09-11-2021 End: 11-11-2021 Comprehensive metabolic 2000 panel - Serum or Plasma COMP METABOLIC PANEL Lab Routine Elevated alkaline phosphatase level Expected: 09/11/2021, Expires: 11/11/2021 [facility] Work Phone: Comment on above: Expected: 09/11/2021 , Expires: 11/11/2021 Start: 09-11-2021 End: 11-11-2021 Gamma glutamyl transferase [Enzymatic activity/volume] in Serum or Plasma GGT BLD Lab Routine Elevated alkaline phosphatase level Expected: 09/11/2021, Expires: 11/11/2021 [facility] Work Phone: Comment on above: Expected: 09/11/2021 , Expires: 11/11/2021 Start: 08-26-2021 3 comp foot exam completed DIABETIC FOOT EXAM [facility] Start: 06-08-2021 Hemoglobin A1c/Hemoglobin.total in Blood HBA1C [facility] Start: 06-08-2021 Hepatitis C antibody , confirmatory test DILATED RETINAL EXAM [facility] Start: 06-07-2021 COVID-19 VACCINE (5 - Booster) COVID-19 VACCINE (5 - Booster) [facility] Start: 04-08-2021 ADVANCE DIRECTIVE DISCUSSION ADVANCE DIRECTIVE DISCUSSION [facility] Start: 11-12-2020 COVID-19 VACCINE (4 - Booster) COVID-19 VACCINE (4 - Booster) [facility] Start: 05-30-2009 SHINGRIX VACCINE (2 of 3) FATIMA GRIX VACCINE (2 of 3) [facility] Start: 2005 Hepatitis B Vaccine (1 of 3 - Risk 3-dose series) Hepatitis B Vaccine (1 of 3 - Risk 3-dose series) [facility] Start: 2005 RSV Vaccine (1 - 1-d ose 60+ series) RSV Vaccine (1 - 1-dose 60+ series) [facility] Start: 1963 Anxiety Screening Anxiety Screening [facility] Ct thorax w/o contra st material CT CHEST WO IVCON Radiology Routine Lung nodules 11/06/2021 9:50 AM EDT [facility] Work Phone: End: 05-09-2023 ECG COMPLETE ECG COMPLETE ECG Routine Screening for ischemic heart disease 1 Occurrences starting 05/09/2022 until 05/09/2023 [facility] Work Phone: Comment on above: 1 Occurrences starti ng 05/09/2022 until 05/09/2023 NM CARDIAC PERF STRESS/PHARM NM CARDIAC PERF STRESS/PHARM Radiology Routine Shortness of breath Ordered: 05/14/2022 [facility] Work Phone: Comment on above: Ordered: 05/14/[address] [facility] Work Phone: [facility] Immunizations Immunization Date Immunization Notes Care Provider Fa cility 01-08-2023 influenza virus vacc ine, unspecified formulation Sriram Valles MD Work Phone: [facility] 03-10-2021 influenza, high-dose , quadrivalent vaccine (FLUZONE HIGH DOSE QUADRIVALENT) Clint Howe MD, MD Work Phone: [facility] 03-10-2021 influenza virus vacc ine, unspecified formulation Injection Wstr Work Phone: [facility] 07-13-2020 COVID-19 vaccine, ag e 12+ yr (PFIZER-BIONTECH - PURPLE TOP) Clint Howe MD, MD Work Phone: [facility] Work Phone: 07-05-2020 Covid (Pfizer) Dr. Barry Adair MD Work Phone: [facility] 06-22-2020 COVID-19 vaccine, ag e 12+ yr (PFIZER-BIONTECH - PURPLE TOP) Clint Howe MD, MD Work Phone: [facility] Work Phone: 06-06-2020 COVID-19 vaccine, ag e 12+ yr (PFIZER-BIONTECH - PURPLE TOP) Carolina Sternlogjulio MEDICAL DOCTOR NUCLEAR MEDICINE.SECURITY PATROL DRIVER Work Phone: [facility] 01-11-2020 influenza, high-dose , quadrivalent vaccine (FLUZONE HIGH DOSE QUADRIVALENT) Carolina Sternlogjulio MEDICAL DOCTOR NUCLEAR MEDICINE.SECURITY PATROL DRIVER Work Phone: [facility] 02-05-2019 influenza, high dose seasonal, preservative-free Clint Howe MD, MD Work Phone: [facility] 02-03-2018 influenza, high dose seasonal, preservative-free Clint Howe MD, MD Work Phone: [facility] 01-10-2017 influenza, high dose seasonal, preservative-free Clint Howe MD, MD Work Phone: [facility] 02-01-2016 influenza, high dose lukas, preservative-free Clint Howe MD, MD Work Phone: [facility] Work Phone: 02-01-2016 pneumococcal polysaccharide vaccine, 23 valent Clint Howe MD, MD Work Phone: [facility] Work Phone: 07-18-2015 pneumococcal conjuga te vaccine, 13 valent Clint Howe MD, MD Work Phone: [facility] 01-31-2015 influenza, high dose seasonal, preservative-free Clint Howe MD, MD Work Phone: [facility] Work Phone: 01-13-2014 influenza, seasonal, injectable Clint Howe MD, MD Work Phone: [facility] 02-21-2013 influenza virus vacc ine, unspecified formulation Clint Howe MD, MD Work Phone: [facility] Work Phone: 02-06-[address] Kobi Adair MD Work Phone: [facility] 02-06-2013 influenza, seasonal, injectable, preservative free Carolina Podlogar MEDICAL DOCTOR NUCLEAR MEDICINE.SECURITY PATROL DRIVER Work Phone: [facility] 04-08-2012 pneumococcal polysaccharide vaccine, 23 valent Carolina Podlogar MEDICAL DOCTOR NUCLEAR MEDICINE.SECURITY PATROL DRIVER Work Phone: [facility] 04-08-2012 pneumococcal vaccine , unspecified formulation Dr. Kobi Adair MD Work Phone: [facility] 02-16-2012 influenza virus vacc ine, unspecified formulation Clint Howe MD, MD Work Phone: [facility] 01-19-2011 influenza virus vacc ine, unspecified formulation Clint Howe MD, MD Work Phone: [facility] 01-09-2010 influenza virus vacc ine, unspecified formulation Clint Howe MD, MD Work Phone: [facility] Work Phone: 04-04-2009 zoster vaccine, live Clint Howe MD, MD Work Phone: [facility] Work Phone: 03-21-2009 novel influenza-H1N1 -09, preservative-free, injectable Carolina Podlogar MEDICAL DOCTOR NUCLEAR MEDICINE.SECURITY PATROL DRIVER Work Phone: [facility] 03-17-2009 novel influenza-H1N1 -09, all formulations Clint Howe MD, MD Work Phone: [facility] Work Phone: 01-21-2009 influenza virus vacc ine, unspecified formulation Clint Howe MD, MD Work Phone: [facility] 07-17-2008 pneumococcal polysaccharide vaccine, 23 valent Clint Howe MD, MD Work Phone: [facility] Work Phone: 01-23-2008 influenza virus vacc ine, whole virus Clint Howe MD, MD Work Phone: [facility] Work Phone: 11-18-2007 pneumococcal polysaccharide vaccine, 23 valent Clint Howe MD, MD Work Phone: [facility] Work Phone: 02-06-2007 influenza virus vacc ine, unspecified formulation Clint Howe MD, MD Work Phone: [facility] Work Phone: 06-07-2003 tetanus and diphther ia toxoids, adsorbed, preservative free, for adult use (2 Lf of tetanus toxoid and 2 Lf of diphtheria toxoid) Clint Howe MD, MD Work Phone: [facility] Work Phone: Payers Date Payer Category Payer Self-pay 2024 Unknown [id number] 2019 Private Health Insurance DANILO GONSALEZ MEDICARE SUPPLEMENT [id number] 2019-Present [phone] [address] [place] [id number] Indemnity [id number] 2019 Private Health Insurance [id number] 2019 Medicare [id number] 2010 Medicare MEDICARE MEDICAR E A AND B [id number] 2010-Present [phone] [place] [address] Medicare [id number] 2010 Medicare MEDICARE MEDICAR E A AND B [id number] 2010-Present [phone] [place] [address] Medicare [id number] 2010 Medicare [id number] 1945 Unknown [id number] Medicare [id number] Unknown [id number] Unknown [id number] Unknown [id number] Unknown [id number] Unknown [id number] Social History Date Type Detail Facility Start: 09-26-2010 End: 09-23-2024 Tobacco smoking status NHIS Ex-smoker [facility] Start: 09-27-1963 End: 09-26-1973 History of tobacco use Current smoker [facility] Start: 09-26-2010 End: 10-29-2022 Cigarettes smoked current (pack per day) - Reported 0.[address] [facility] Start: 09-26-2010 End: 05-14-2022 Tobacco use and exposure Former smokeless tobacco user [facility] End: 01-23-2007 History of tobacco use Chews Tobacco [facility] Start: 05-29-2021 End: 10-28-2023 Alcohol intake Current drinker of alcohol (finding) [facility] Start: 12-13-2020 End: 09-07-2021 History SDOH Alcohol Frequency [address] [facility] Start: 12-13-2020 End: 09-07-2021 History SDOH Alcohol Std Drinks [address] [facility] Start: 06-23-2013 History SDOH Alcohol Comment Rarely [facility] Start: 12-13-2020 History SDOH Social Connections Phone [address] [facility] Start: 12-13-2020 History SDOH Social Connections Meetings [address] [facility] Start: 12-13-2020 History SDOH Physical Activity DPW [address] [facility] Start: 12-13-2020 Education [address] [facility] Start: 1945 Sex Assigned At Male [facility] Start: 08-29-2021 End: 09-13-2021 Exposure to SARS-CoV-2 (event) Not sure [facility] Start: 09-27-1963 End: 09-26-1973 History of tobacco use Cigarette Smoker [facility] Start: 12-13-2020 End: 10-29-2022 Social connection and isolation panel [facility] Do you belong to any clubs or organizations such as voodoo groups, unions, fraternal or athletic groups, or school groups? Yes [facility] Are you now , , , , never or living with a partner? [facility] How often to you hav e a drink containing alcohol? Monthly or less [facility] How many standard dr inks containing alcohol do you have on a typical day? 1 or [address] [facility] How often do you hav e 6 or more drinks on 1 occasion? Never [facility] How hard is it for y ou to pay for the very basics like food, housing, medical care, and heating Not hard at all [facility] Do you feel stress - tense, restless, nervous, or anxious, or unable to sleep at night because your mind is troubled all the time - these days [OSQ] Only a little [facility] (I/We) worried wheth er (my/our) food would run out before (I/we) got money to buy more. Never true [facility] In the past 12 month s, was there a time when you were not able to pay the mortgage or rent on time? No [facility] Start: 2019 Gender identity Identifies as male gender (finding) [facility] Start: 02-05-2019 Sexual orientation Heterosexual (finding) [facility] Start: 05-13-2013 Alcohol Alcohol [facility] Start: 05-13-2013 Lives Lives [facility] Start: 05-13-2013 Tobacco Use Tobacco Use [facility] Medical Equipment Procedure Code Equipment Code Equipment Origin al Text Equipment Identifier Dates Use as directed with insulin pen Dx: E11.21 DM: yes insulin: yes [id number] Start: 04-19-2016 Comment on above: Use as directed with insulin pen Dx: E11.21 DM: yes insulin: yes Clinical Notes 03-24-2015 to 09-23-2024 Telephone Encounter - Alicja Galeas MA - 12/17/2023 11:39 AM EDTTelephone Encounter - Alicja Galeas MA - 12/17/2023 11:39 AM Sriram Fajardo MD - 10/28/2023 10:05 AM EDT Note Date & Type Note Facility 09-23-2024 Radiology Diagnostic study note [facility] Imaging Services [address] [place] [address] [id number] Abdomen/Pelvis without Cont MR#: [id number] Acct: [id number] Name: KIMBERLY NAVA Rep #: [id number] : 1945 M 79 From: Rudi Pretty MD PCP: Dr. Kobi Adair MD Status: REG ER Study:Abdomen/Pelvis without Cont Date of Exa m: 09/23/24 Exam# [id number] Ordering Dr: Laura Vazquez DO PROCEDURE: ABDOMEN/PELVIS [...] Left distal ureter 6 mm calculus with ibkkmddc-gv-tarxfg upstream hydroureteronephrosis Severely enlarged prostate. The urinary bladder is unremarkable. Normal caliber large and small bowel. CT/Abdomen/Pelvis without Cont IMPRESSION: Left distal ureter 6 mm calculus with gwujgdvr-ni-ntvqzn upstream hydroureteronephrosis. Severe prostatomegaly. Reading Location: [id number] CC: Dr. Kobi Adair MD; Dr. Marco Antonio Vazquez DO ~ Cofounder: Signed [facility] 04-17-2024 Note [facility] Medical Records Department [address] [place] [address] Discharge Summary 04/17/24 1629 MR#: [id number] Acct: [id number] Name: KIMBERLY NAVA Rep #: [id number] : 1945 [id number] From: Toshia Pro MD PCP: Dr. Kobi Adair MD Status:ADM IN Location: [place] [address] Providers Date of Admission: 04/14/24 Date of [...] mg-vit E 90 mg-zinc 40 mg-copper 1 pg-djrvsl-nmrmux capsule (PreserVision AREDS-2) 1 tab PO BID [...] CKD stage IIIb, diabetes, hypothyroidism, [facility] [...] other new or acute complaints. Discharged to [place] [facility] in stable condition with the following [...] be a sign (more content not included)... [facility] 12-17-2023 Telephone encounter Note Pt notified. [facility] Advised him that the [facility] should be able to write the placard. He said he was given one by the [facility] but [facility] would not accept as it was signed by ADMISSIONS EVALUATOR not MD. I instructed pt that he would need to call the [facility] and ask that the letter be signed by an MD. Pt voiced understanding. Alicja Galeas MA [facility] 12-17-2023 Miscellaneous Notes Pt notified. [facility]. Advised him that the [facility] should be able to write the placard. He said he was given one by the [facility] but [facility] would not accept as it was signed by ADMISSIONS EVALUATOR not MD. I instructed pt that he [...] Brandi Tracey LPN documented in this encounter [facility] 12-17-2023 Telephone encounter Note We have not seen him since 2021 and his chart no longer has me listed as his PCP. If we are still managing his care, he will need OV for this and to follow up on his diabetes and other chronic medical conditions. [facility] 12-17-2023 Telephone encounter Note Per Kimberly, it is time to renew Handicapped Placard, asking for PCP (Dr. Adair) to write letter. Patient does not go through [facility] for Handicapped Placard letter, please call when ready for pickup. Brandi Tracey LPN [facility] 10-28-2023 Note HNO ID: [id number] Author: SRIRAM VALLES MD Service: ? Author Type: Physician Type: Progress Notes Filed: 10/28/2023 10:10 Note Text: Sriram Valles MD Interventional Cardiology [address] [place] [address] [phone] Chief Complaint Patient presents with: Follow Up [...] Depression Diabetes (HCC) DVT (deep venous thrombosis) ([facility]) 2007 Esophageal reflux Generalized osteoarthrosis, unspecified site Hemorrhage of gastrointestinal tract, unspecified History of tobacco use Hypothyroidism Nonspecific (abnormal) findings on radiological and other examination of genitourinary organs 11/18/2007 He has R pelvic Kidney - congenital Obesity (BMI 30-39.9) Obstructive sleep apnea Bipap, seeing [facility] - PAST MEDICAL HISTORY OF 2 [place] with quad. bypass and valve repair- DVT [...] of Onset None Mother 98 Heart Father [place] AGE 67 Diabetes Father Hypertension Brother Diabetes [...] 25 6 Mag (more content not included)... [facility] 10-28-2023 History of Present illness Narrative Images from the original note were not included. Sriram Valles MD Interventional Cardiology [address] [place] [address] [id number] Chief Complaint Patient presents with: Follow Up [...] but ill-defined, cerebrovascular disease 1970s TIA Cancer ([facility]) 2007 thryoid Chronic rhinitis Congestive heart failure ([facility]) Coronary artery disease Dr. Hogue Depression Diabetes ([facility]) DVT (deep venous thrombosis) ([facility]) 2008 Esophageal reflux Generalized osteoarthrosis, unspecified site Hemorrhage of gastrointestinal tract, unspecified History of tobacco use Hypothyroidism Nonspecific (abnormal) findings on radiological and other examination of genitourinary organs 11/18/2007 He has R pelvic Kidney - congenital Obesity (BMI 30-39.9) Obstructive sleep apnea Bipap, seeing [facility] - PAST MEDICAL HISTORY OF 2-13-08 [place] with quad. bypass and valve repair- DVT [...] of Onset None Mother 98 Heart Father [place] AGE 67 Diabetes Father Hypertension Brother Diabetes [...] Please fax 30 day compliance download to [phone]. Dx: ANABELL, treatment emergent CSA 1 Device [...] repair ASSESSMENT/PLAN: 1. Coronary artery disease involving standing rock coronary artery of standing rock heart without angina pectoris - ICD9: 414.01, [...] correct any errors. documented in this encounter [facility] 07-09-2022 History of Present illness [...] Cathryn Wolfe RN Reversal agent used:N/A LOT [id number] EXP 12/07/2025 IV SITE: IV palced by nuclear tecnologist POST EXAM PIV STATUS: Discontinued by Automatic Dispenser Mechanic PATIENT DISCHARGED TO: Nuclear Medicine Department for post stress imaging A Diagnostic radioactive procedure has taken place, with no further precautions necessary other than routine body substance precautions. More information regarding radiation safety can be found using this link: [email or web address] [email or web address]%20Nuclear%20 Medicine%[email or web address] SIGNATURE: Cathryn Wolfe RN PATIENT NAME:Kimberly Nava DATE: 07/09/22 TIME: 10:40 AM documented in this encounter [facility] 07-09-2022 History of Present illness [...] Discontinued PROCEDURE TYPE: NM Stress: 15.3 mCi [id number] was administered IV for Rest Imaging at 0745 by JOHN. 44.8 mCi [id number] was administered IV for Stress Imaging at 0906 by JOHN. PATIENT DISCHARGED TO: Ambulatory patient, left PR department area. A Diagnostic radioactive procedure has taken place, with no further precautions necessary other than routine body substance precautions. More information regarding radiation safety can be found using this link: [email or web address] [email or web address]-%20Diagnostic%20Nuclear%20 Medicine%20Procedures.pdf SIGNATURE: RT Elliott(R) PATIENT NAME: Kimberly Nava DATE: July 09, 2022 TIME: 7:52 AM PAGER/CONTACT #: documented in this encounter [facility] 05-14-2022 History of Present illness Narrative Images from the original note were not included. Sriram Valles MD Interventional Cardiology [address] [address] [phone] Chief Complaint Patient presents with: Established Patient [...] a heart rate of 93 bpm his PA interval is 186 ms with Q waves [...] PMH - PAST MEDICAL HISTORY OF 05-21-07 [place] with quad. bypass and valve repair- DVT [...] of Onset None Mother 98 Heart Father [place] AGE 67 Diabetes Father Hypertension Brother Diabetes [...] Please fax 30 day compliance download to [phone]. Dx: ANABELL, treatment emergent CSA 1 Device [...] correct any errors. documented in this encounter [facility] 04-04-2022 History of Present illness Narrative Images from the original note were not included. POPULATION HEALTH NAVIGATION OUTREACH Action/ANAHY Eldridge sent [employer] message: Enedina Henriquez MA I most recently was granted 100% disability by the 's admin. therefore I will be utilizing them for my primary care. I will use them for Annual Wellness Visit in the future. Any questions give me a call [phone], Thank you. [facility] [employer] message sent ANNUAL MEDICARE WELLNESS EXAM ADVANCE DIRECTIVE DISCUSSION Never done DILATED RETINAL EXAM due on 06/08/2021 URINE ALBUMIN:CREATININE RATIO due on 11/09/2021 INFLUENZA(1) due on 12/07/2021 HBA1C due on 03/10/2022 Pt identified by name and : NO Outreach Outcome/Action Unable to reach patient: Left message [employer] message sent PCP field updated Did you [...] 2022 9:14 AM documented in this encounter [facility] 01-29-2022 History of Present illness [...] Cristy Naidu LPN documented in this encounter [facility] 01-29-2022 Instructions Nick Wall - [...] (or decreased sensation in your feet) a senior group manager should always cut your toenails. Be Careful [...] Go to your health care provider or senior group manager to treat these conditions. documented in this encounter [facility] 11-08-2021 Miscellaneous Notes Called PT [...] Carolina Rice APRN.CNP documented in this encounter [facility] 11-06-2021 History of Present illness [...] 2021 3:49 PM documented in this encounter [facility] 10-31-2021 Miscellaneous Notes I spoke [...] his treatment. Thanks documented in this encounter [facility] 09-12-2021 Miscellaneous Notes Pt called and is notified of providers results and instructions. Pt voices understanding. Sent information to Pt through [employer] as well. Catie Green RN Please call patient and let him know his A1c is 7.6% which is a great improvement from his last one which was 10%. Continue to follow with [place] for this. Thyroid level in good range- continue current dose of synthroid. Alkaline phosphatase was elevated. Recommend additional blood work. He should fast 10 hours prior. He tells me someone from [place] comes to his house frequently. Please ask him if he can get a fax number from them so we can send them our lab results. Kidney function remains decreased but is stable. Continue to avoid NSAID products, eat low salt diet and stay hydrated. Thanks, Carolina Rice APRN.KEN documented in this encounter [facility] 07-27-2021 Miscellaneous Notes Spoke to [...] Dr Howe. Thanks. documented in this encounter [facility] 03-24-2015 History of Past i [...] Patient get machine and supplies from the [place]. Last Assessment & Plan: Been for a sleep study, and there was a significant change to his levels, hoping he will be better during the new year. Coronary artery disease invo lving coronary bypass graft of standing rock heart without angina pectoris 11/06/2007 11/15/2020 Overview: [...] of this encounter (statuses as of 07/28/2021) [facility] History of Past illness Narrative* [...] disease invo lving coronary bypass graft of standing rock heart without angina pectoris 11/06/2007 11/15/2020 Overview: [...] of this encounter (statuses as of 09/12/2021) [facility] History of Past illness Narrative* [...] disease invo lving coronary bypass graft of standing rock heart without angina pectoris 11/06/2007 11/15/2020 Overview: [...] of this encounter (statuses as of 10/27/2021) [facility] History of Past illness Narrative* [...] Patient get machine and supplies from the [place]. Last Assessment & Plan: Been for a sleep study, and there was a significant change to his levels, hoping he will be better during the new year. Coronary artery disease invo lving coronary bypass graft of standing rock heart without angina pectoris 11/06/2007 11/15/2020 Overview: [...] of this encounter (statuses as of 11/01/2021) [facility] History of Past illness Narrative* [...] Patient get machine and supplies from the [place]. Last Assessment & Plan: Been for a sleep study, and there was a significant change to his levels, hoping he will be better during the new year. Coronary artery disease invo lving coronary bypass graft of standing rock heart without angina pectoris 11/06/2007 11/15/2020 Overview: [...] of this encounter (statuses as of 11/07/2021) [facility] History of Past illness Narrative* [...] Patient get machine and supplies from the [place]. Last Assessment & Plan: Been for a sleep study, and there was a significant change to his levels, hoping he will be better during the new year. Coronary artery disease invo lving coronary bypass graft of standing rock heart without angina pectoris 11/06/2007 11/15/2020 Overview: [...] of this encounter (statuses as of 11/21/2021) [facility] History of Past illness Narrative* [...] disease invo lving coronary bypass graft of standing rock heart without angina pectoris 11/06/2007 11/15/2020 Overview: [...] of this encounter (statuses as of 01/29/2022) [facility] History of Past illness Narrative* [...] Patient get machine and supplies from the [place]. Last Assessment & Plan: Been for a sleep study, and there was a significant change to his levels, hoping he will be better during the new year. Coronary artery disease invo lving coronary bypass graft of standing rock heart without angina pectoris 11/06/2007 11/15/2020 Overview: [...] of this encounter (statuses as of 04/10/2022) [facility] History of Past illness Narrative* [...] disease invo lving coronary bypass graft of standing rock heart without angina pectoris 11/06/2007 11/15/2020 Overview: [...] of this encounter (statuses as of 05/14/2022) [facility] History of Past illness Narrative* [...] Patient get machine and supplies from the [place]. Last Assessment & Plan: Been for a sleep study, and there was a significant change to his levels, hoping he will be better during the new year. Coronary artery disease invo lving coronary bypass graft of standing rock heart without angina pectoris 11/06/2007 11/15/2020 Overview: [...] of this encounter (statuses as of 07/05/2022) [facility] History of Past illness Narrative* [...] disease invo lving coronary bypass graft of standing rock heart without angina pectoris 11/06/2007 11/15/2020 Overview: [...] of this encounter (statuses as of 07/09/2022) [facility] History of Past illness Narrative* [...] Patient get machine and supplies from the [place]. Last Assessment & Plan: Been for a sleep study, and there was a significant change to his levels, hoping he will be better during the new year. Coronary artery disease invo lving coronary bypass graft of standing rock heart without angina pectoris 11/06/2007 11/15/2020 Overview: [...] of this encounter (statuses as of 02/08/2023) [facility] History of Past illness Narrative* [...] Patient get machine and supplies from the [place]. Last Assessment & Plan: Been for a sleep study, and there was a significant change to his levels, hoping he will be better during the new year. Coronary artery disease invo lving coronary bypass graft of standing rock heart without angina pectoris 11/06/2007 11/15/2020 Overview: [...] of this encounter (statuses as of 02/08/2023) [facility] Elevated alkaline phosphatase level- Primary Other nonspecific abnormal serum enzyme levels [facility] Diagnosis Type 2 diabetes mellitus [...] ClinicEvaluation note* Diagnosis Coronary artery disease involving standing rock coronary artery of standing rock heart without angina pectoris- Primary Mixed hyperlipidemia [...] Mitral valve disorders documented [facility] noteNo assessment information availableWMercy Health St. [facility] Work Phone: Reason for referral (narrative)* Diagnostic Procedure Only (Routine) - Pending Review Specialty Diagnoses / Procedures Referred By Contac t Referred To Contact MOLECULAR & FUNCTIONAL IMAGING Diagnoses Shortness of breath Procedures NM CARDIAC PERF STRESS/PHARM MYOCARDIAL SPECT MULTIPLE STUDIES Sriram Valles MD [address] [place] [address] Molecular [facility] Functional Imaging [address] [place] [address] Referral ID Status Reason Start Date Expiration Date Visits Requested Visits Authorized [id number] Pending Review Auto-Generat ed Referral 05/14/2022 06/13/2023 1 1 * Outpatient Procedure (Routine) - Pending Review Specialty Diagnoses / Procedures Referred By Contac t Referred To Contact [facility] Diagnoses Shortness of breath Procedures ECHO ECHO TTHRC R-T 2D W/WOM-MODE COMPL SPEC&COLR D Sriram Valles MD [address] [place] [address] [facility] [place] [address] [place] [address] Referral ID Status Reason Start Date Expiration Date Visits Requested Visits Authorized [id number] Pending Review Auto-Generat ed Referral 05/21/2022 05/14/2023 1 1 * Outpatient Procedure (Routine) - Closed Specialty Diagnoses / Procedures Referred By Contac t Referred To Contact [facility] Diagnoses Screening for ischemic heart disease Procedures ECG COMPLETE ECG ROUTINE ECG W/LEAST 12 LDS W/I&R Sriram Valles MD [address] [place] [address] [facility] [place] [address] [place] [address] Referral ID Status Reason Start Date Expiration Date V isits Requested Visits Authorized [id number] Closed Auto-Generate d Referral 05/09/2022 05/09/2023 1 1 [facility] for referral (narrative)* Outpatient Procedure (Routine) - Authorized Specialty Diagnoses / Procedures Referred By Contac t Referred To Contact [facility] Diagnoses Hypertensive heart disease with diastolic heart failure (HCC) Mitral valve disorder Procedures ECHO ECHO TTHRC R-T 2D W/WOM-MODE COMPL SPEC&COLR D Sriram Valles MD [address], [address] [place] [address] [facility] [address] [place] [address] Referral ID Status Reason Start Date Expiration Date Visits Requested Visits Authorized [id number] Authorized Auto-Generat ed Referral 07/29/2024 10/27/2024 1 1 * Outpatient Procedure (Routine) - New Request Specialty Diagnoses / Procedures Referred By Contac t Referred To Contact [facility] Diagnoses Screening for ischemic heart disease Coronary artery disease involving standing rock coronary artery of standing rock heart without angina pectoris Mixed hyperlipidemia Procedures ECG COMPLETE ECG ROUTINE ECG W/LEAST 12 LDS W/I&R Sriram Valles MD [address], [address] [place] [address] [facility] [address] [place] [address] Referral ID Status Reason Start Date Expiration Date Visits Requested Visits Authorized [id number] New Request Auto-Generat ed Referral 10/28/2023 10/23/2024 1 1 [facility] for referral (narrative)No reason for referral information availableWMercy Health St. [facility] Work Phone: Reason for visit Narrative* Diagnostic Procedure Only (Routine) - Closed Specialty Diagnoses / Procedures Referred By Tanner t Referred To Contact MOLECULAR & FUNCTIONAL IMAGING Diagnoses Shortness of breath Procedures NM CARDIAC PERF STRESS/PHARM MYOCARDIAL SPECT MULTIPLE STUDIES Sriram Valles MD [address] [place] [address] Molecular [facility] Functional Imaging [address] [place] [id number] Referral ID Status Reason Start Date Expiration Date V isits Requested Visits Authorized [id number] Closed Auto-Generate d Referral 05/14/2022 06/13/2023 [address] [facility] Summary Purpose Family History Relationship Condition Age at Onset Recorded Date/T davin father Coronary artery disease Unknown Myocardial infarction Unknown Diabetes mellitus Unknown Cardiac disease Unknown Hypertension Unknown brother Hypertension Unknown Advance Directives Advance Directive Response Recorded Date/ Time Do you have a Healthcare Power of Labor Economics Teacher? 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 [address] [place] [address] Ct Imaging Referral ID Status Reason Start Date Expiration Date V isits Requested Visits Authorized [id number] Closed Auto-Generate d Referral 11/26/2021 06/28/2022 1 1 Referral ID Status Reason Start Date Expiration Date Visits Requested Visits Authorized [id number] Pending Review Auto-Generat ed Referral 11/08/2021 12/07/2022 [...] DATE CREATED AUTHOR 09/25/2017 [facility] DATE CREATED AUTHOR 'S ORGANIZ ATION 09/25/2017 [facility] DATE CREATED AUTHOR AUTHOR'S ORGANIZ ATION 07/17/2020 [facility] DATE CREATED AUTHOR AUTHOR'S ORGANIZ ATION 12/19/2023 [facility] DATE CREATED AUTHOR AUTHOR'S ORGANIZ ATION 04/29/2024 [facility] DATE CREATED AUTHOR AUTHOR'S ORGANIZ ATION 05/10/2024 [facility] Source Comments (unrecognize d section and content) In the event this informatio n is protected by the Federal Confidentiality of Alcohol and Drug Abuse Patient Records regulations: The Federal rules restrict any use of the information to criminally investigate or prosecute any alcohol or drug abuse patient.[facility] the event this information is protected by the Federal Confidentiality of Alcohol and Drug Abuse Patient Records regulations: The Federal rules restrict any use of the information to criminally investigate or prosecute any alcohol or drug abuse patient.[facility] the event this information is protected by the Federal Confidentiality of Alcohol and Drug Abuse Patient Records regulations: The Federal rules restrict any use of the information to criminally investigate or prosecute any alcohol or drug abuse patient.[facility] CenterIn the event this information is protected by the Federal Confidentiality of Alcohol and Drug Abuse Patient Records regulations: The Federal rules restrict any use of the information to criminally investigate or prosecute any alcohol or drug abuse patient.[facility] CenterIn the event this information is protected by the Federal Confidentiality of Alcohol and Drug Abuse Patient Records regulations: The Federal rules restrict any use of the information to criminally investigate or prosecute any alcohol or drug abuse patient.[facility] Center[facility] the event this information is protected by the Federal Confidentiality of Alcohol and Drug Abuse Patient Records regulations: The Federal rules restrict any use of the information to criminally investigate or prosecute any alcohol or drug abuse patient.[facility] CenterIn the event this information is protected by the Federal Confidentiality of Alcohol and Drug Abuse Patient Records regulations: The Federal rules restrict any use of the information to criminally investigate or prosecute any alcohol or drug abuse patient.[facility] CenterIn the event this information is protected by the Federal Confidentiality of Alcohol and Drug Abuse Patient Records regulations: The Federal rules restrict any use of the information to criminally investigate or prosecute any alcohol or drug abuse patient.[facility] CenterIn the event this information is protected by the Federal Confidentiality of Alcohol and Drug Abuse Patient Records regulations: The Federal rules restrict any use of the information to criminally investigate or prosecute any alcohol or drug abuse patient.[facility] CenterIn the event this information is protected by the Federal Confidentiality of Alcohol and Drug Abuse Patient Records regulations: The Federal rules restrict any use of the information to criminally investigate or prosecute any alcohol or drug abuse patient.[facility] CenterIn the event this information is protected by the Federal Confidentiality of Alcohol and Drug Abuse Patient Records regulations: The Federal rules restrict any use of the information to criminally investigate or prosecute any alcohol or drug abuse patient.[facility] CenterIn the event this information is protected by the Federal Confidentiality of Alcohol and Drug Abuse Patient Records regulations: The Federal rules restrict any use of the information to criminally investigate or prosecute any alcohol or drug abuse patient.[facility] CenterIn the event this information is protected by the Federal Confidentiality of Alcohol and Drug Abuse Patient Records regulations: The Federal rules restrict any use of the information to criminally investigate or prosecute any alcohol or drug abuse patient.[facility] CenterIn the event this information is protected by the Federal Confidentiality of Alcohol and Drug Abuse Patient Records regulations: The Federal rules restrict any use of the information to criminally investigate or prosecute any alcohol or drug abuse patient.[facility] CenterIn the event this information is protected by the Federal Confidentiality of Alcohol and Drug Abuse Patient Records regulations: The Federal rules restrict any use of the information to criminally investigate or prosecute any alcohol or drug abuse patient.[facility] CenterIn the event this information is protected by the Federal Confidentiality of Alcohol and Drug Abuse Patient Records regulations: The Federal rules restrict any use of the information to criminally investigate or prosecute any alcohol or drug abuse patient.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 [address] [place] [address] Ct Imaging Referral ID Status Reason Start Date Expiration Date V isits Requested Visits Authorized [id number] Closed Auto-Generate d Referral 11/26/2021 06/28/2022 1 1 Reason Comments Orders Reason Comments Established Patient Follow Up Diabetic Foot Care Ingrown Toenail Reason Onset Date Comments Population Health Navigation Outreach 04/04/2022 [facility] PCSA Reason Comments Established Patient Follow-Up Reason Comments Radiology NM Specialty Diagnoses / Procedures Referred By Contac t Referred To Contact MOLECULAR & FUNCTIONAL IMAGING Diagnoses Shortness of breath Procedures NM CARDIAC PERF STRESS/PHARM MYOCARDIAL SPECT MULTIPLE STUDIES Sriram Valles MD [address] [place] [address] Molecular & Functional Imaging [address] [place] [address] Referral ID Status Reason Start Date Expiration Date V isits Requested Visits Authorized [id number] Closed Auto-Generate d Referral 05/14/2022 06/13/2023 1 1 Reason Comments Follow Up Reason Comments Letter Care Teams (unrecognized sec tion and content) Exchange Consultant Relationship Specialty Start Date End Date Nikia Adair MD [address] [facility] [place] [address] PCP - General Family Practice 04/16/17 Clint Howe MD, [address] [place] [address] Physician Radiation Oncology 07/27/21 Exchange Consultant Relationship Specialty Start Date End Date Nikia Adair MD [address] [facility] [place] [address] PCP - General Family Practice 04/16/17 Clint Howe MD, [address] [place] [address] Physician Radiation Oncology 07/27/21 Clint Howe MD, [address] [place] [address] Physician Radiation Oncology 07/28/21 Exchange Consultant Relationship Specialty Start Date End Date Nikia Adair MD [address] [facility] [place] [address] PCP - General Family Practice 04/16/17 Clint Howe MD, [address] [place] [address] Physician Radiation Oncology 07/27/21 Clint Howe MD, [address] [place] [address] Physician Radiation Oncology 07/28/21 Exchange Consultant Relationship Specialty Start Date End Date Nikia Adair MD [address] [facility] [place] [address] PCP - General Family Practice 04/16/17 Clint Howe MD, [address] [place] [address] Physician Radiation Oncology 07/27/21 Clint Howe MD, [address] [place] [address] Physician Radiation Oncology 07/28/21 Exchange Consultant Relationship Specialty Start Date End Date Nikia Adair MD [address] [place] [address] PCP - General Family Practice 04/16/17 Clint Howe MD, [address] [place] [address] Physician Radiation Oncology 07/27/21 Clint Howe MD, [address] [place] [address] Physician Radiation Oncology 07/28/21 Exchange Consultant Relationship Specialty Start Date End Date Nikia Adair MD [address] [place] [address] PCP - General Family Practice 04/16/17 Clint Howe MD, [address] [place] [address] Physician Radiation Oncology 07/27/21 Clint Howe MD, [address] [place] [address] Physician Radiation Oncology 07/28/21 Exchange Consultant Relationship Specialty Start Date End Date Nikia Adair MD [address] [place] [address] PCP - General Family Medicine 04/16/17 Clint Howe MD, [address] [place] [address] Physician Radiation Oncology 07/27/21 Clint Howe MD, [address] [place] [address] Physician Radiation Oncology 07/28/21 Exchange Consultant Relationship Specialty Start Date End Date [facility] [address] [place] [address] PCP - General 04/04/22 Clint Howe MD, [address] [place] [address] Physician Radiation Oncology 07/27/21 Clint Howe MD, [address] [place] [address] Physician Radiation Oncology 07/28/21 Exchange Consultant Relationship Specialty Start Date End Date [facility] [address] [place] [address] PCP - General 04/04/22 Clint Howe MD, [address] [place] [address] Physician Radiation Oncology 07/27/21 Clint Howe MD, [address] [place] [address] Physician Radiation Oncology 07/28/21 Exchange Consultant Relationship Specialty Start Date End Date [facility] [address] [place] [address] PCP - General 04/04/22 Clint Howe MD, [address] [place] [address] Physician Radiation Oncology 07/27/21 Clint Howe MD, [address] [place] [address] Physician Radiation Oncology 07/28/21 Exchange Consultant Relationship Specialty Start Date End Date [facility] [address] [place] [address] PCP - General 04/04/22 Clint Howe MD, [address] [place] [address] Physician Radiation Oncology 07/27/21 Clint Howe MD, [address] [place] [address] Physician Radiation Oncology 07/28/21 Exchange Consultant Relationship Specialty Start Date End Date [facility] [address] [place] [address] PCP - General 04/04/22 Clint Hoew MD, [address] [place] [address] Physician Radiation Oncology 07/27/21 Clint Howe MD, [address] [place] [address] Physician Radiation Oncology 07/28/21 Exchange Consultant Relationship Specialty Start Date End Date [facility] [address] [place] [address] PCP - General 04/04/22 Clint Howe MD, [address] [place] [address] Physician Radiation Oncology 07/27/21 Clint Howe MD, [address] [place] [address] Physician Radiation Oncology 07/28/21 Exchange Consultant Relationship Specialty Start Date End Date [facility] [address] [place] [address] PCP - General 04/04/22 Clint Howe MD [address] [place] [address] Physician Radiation Oncology 07/27/21 Clint Howe MD [address] [place] [address] Physician Radiation Oncology 07/28/21 Exchange Consultant Relationship Specialty Start Date End Date [facility] [address] [facility] [place] [address] PCP - General 04/04/22 Clint Howe MD [address] [place] [address] Physician Radiation Oncology 07/27/21 Clint Howe MD [address] [place] [address] Physician Radiation Oncology 07/28/21 Exchange Consultant Relationship Specialty Start Date End Date [facility] [address] [place] [address] PCP - General 04/04/22 Clint Howe MD [address] [place] [address] Physician Radiation Oncology 07/27/21 Clint Howe MD [address] [place] [address] Physician Radiation Oncology 07/28/21 Team Status: Active [...] BE BASED ON THE PRIMARY CLINICAL RECORDS. [employer] provides no warranty or guarantee of the accuracy or completeness of information in this document.
[2024-09-24 05:27] VITALS: BP 149/88; PULSE 87; RESP 16; TEMP 36.7; O2SAT 94
[2024-09-24] MEDS: Morphine 2 MG/ML Syringe IV (05:29)
[2024-09-24] MEDS: 0.9% Saline Lock 10 ML Syringe IV (05:29)
--- NOTE | 2024-09-24 06:10 | RAD_ITS ---
PROCEDURE: ABD DECUB AND/OR ERECT(PORTABL 09/24/2024 REASON FOR EXAM: KIDNEY STONE TECHNIQUE: ABD DECUB AND/OR ERECT(PORTABL COMPARISON: September 23, 2024 CT FINDINGS: Bowel gas: Nonobstructive bowel gas pattern Calcifications: There is a 9 mm stone overlying the left SI joint which corresponds with the left ureteral stone seen on the recent CT in this region. Bones: There is no acute bony abnormality. Dextroscoliosis of the lumbar spine is noted. Other: Phleboliths are noted in the pelvis. Vascular calcifications are visible. RAD/Abd Decub and/or Erect(Portabl IMPRESSION: There is a 9 mm ureteral stone overlying the left SI joint which corresponds wi th the left ureteral stone seen on the recent CT in this region. Reading Location: [facility]
--- NOTE | 2024-09-24 07:08 | HP.PCM_ITS ---
HPI - General General Date of Admission: 09/23/24 Date of Service: 09/23/24 Chief Complaint: Left obstructing ureteral calculus HPI Narrative KIMBERLY DUGAN, is a 79 M who presents with intractable pain from a obstructing stone in the left mid ureter chronic chronic kidney disease he is can be admitted for pain control and management of the stone. Put him on the surgery schedule for left ureteroscopy laser of stone and stent placement. [facility] Medical History Former tobacco use History of COVID-19 History of DVT (deep vein thrombosis) Coronary artery disease Essential hypertension Tubular adenoma of colon Chronic diastolic heart failure ANABELL (obstructive sleep apnea) Insomnia Vitamin D deficiency Proteinuria BPH (benign prostatic hyperplasia) Restless leg syndrome Hypertensive heart disease with acute diastolic congestive heart failure Mixed hyperlipidemia Allergic rhinitis Diabetes Depression GERD (gastroesophageal reflux disease) Obesity Hypothyroid CHF (congestive heart failure) Hyperlipidemia Home Medications ?Medication ?Instructions ?Recorded ?Last Taken ?Type aspirin 81 mg chewable tablet 81 mg PO DAILY heart hea lth 03/10/13 04/14/24 History atorvastatin 40 mg tablet 40 mg PO QHS cholesterol 06/1804/13/24 History levothyroxine 200 mcg tablet 200 mcg PO DAILY thyroid 03/10/13 04/14/24 History (Levoxyl) nitroglycerin 0.4 mg sublingual 0.4 mg sublingual Q5M PRN Chest 03/10/13 05/02/18 History tablet Pain sertraline 50 mg tablet 50 mg PO DAILY mental health 04/14/15 05/02/18 History famotidine 10 mg tablet 10 mg PO BID reflux 02/18/21 04/14/24 History semaglutide 0.25 mg or 0.5 mg (2 0.5 mg subcut TH diab etes 02/18/21 Unknown History mg/1.5 mL) subcutaneous pen injector (Ozempic) carbidopa ER 25 mg-levodopa 100 mg 1 tab PO QHS tremor s 04/14/24 04/13/24 History tablet,extended release multivitamin with iron 1 tab PO DAILY multivitamin 04/14/24 04/14/24 History vit C 250 mg-vit E 90 mg-zinc 40 1 tab PO BID vitamin 04/14/24 04/14/24 History mg-copper 1 [id number] capsule (PreserVision AREDS-2) furosemide 20 mg tablet 20 mg PO DAILY diuretic #30 tabs 04/17/24 04/14/24 Rx metoprolol tartrate 25 mg tablet 12.5 mg (1/2 x 25 mg) PO BID htn 04/17/24 Unknown Rx 30 days #30 tabs amlodipine 5 mg tablet 5 mg PO QDAY 05/01/24 Unknow n History clopidogrel 75 mg tablet 75 mg PO DAILY antiplatelet 09/23/24 Unknown History insulin aspart U-100 100 unit/mL 8 unit subcut QPM heydi betes 09/23/24 Unknown History (3 mL) subcutaneous pen (Novolog FlexPen U-100 Insulin aspart) insulin glargine 100 unit/mL (3 30 unit subcut DAILY d iabetes 09/23/24 Unknown History mL) subcutaneous pen (Lantus Solostar U-100 Insulin) losartan 25 mg tablet 12.5 mg PO DAILY htn 5 Unknown History potassium chloride 10 mEq 10 meq PO DAILY supplement 0 09/23/24 Unknown History tablet,extended release (Klor-Con) tamsulosin 0.4 mg capsule (Flomax) 0.8 mg PO QHS bladd er 09/23/24 Unknown History trospium 20 mg tablet 20 mg PO BID antispasmodic 0 09/23/24 Unknown History Allergy/AdvReac Type Severity Reaction Status Date / Time Anesthetics - Amide Type - Allergy Other Verified 09/23/24 13:16 [facility] - [place]ka Type- Allergy Other Verified 09/23/24 13:16 Parabens albuterol AdvReac Mild thrush Verified 09/23/24 13:16 Family History Father CAD (coronary artery disease) Myocardial infarction Diabetes Heart disease Hypertension Brother Hypertension Diabetes Mother No problems noted. Surgical History S/P thyroidectomy S/P arthroscopic knee surgery S/P hemorrhoidectomy Hx of elbow surgery S/P CABG x 4 S/P coronary artery stent placement Hx of mitral valve repair Social History household members: spouse Smoking Status: Former smoker quit date: 09/26/73 pack-years: 5 how long ago did patient quit smoking: Additional chew tobacco use history, quit 01/15/2007. alcohol intake: never substance use type: does not use Vital Signs Vital Signs Vital Signs: 09/23/24 13:13 09/23/24 16:13 09/23/24 18:00 Temperature 98.3 F 98.6 F Temperature Source Oral Oral Pulse Rate 88 78 89 Pulse Strength Respiratory Rate 16 16 18 Respiratory Effort Respiratory Depth Respiratory Pattern Blood Pressure 149/98 H 141/64 H 132/78 H Blood Pressure Mean 115 89 96 Blood Pressure Source Blood Pressure Position Blood Pressure Location Pulse Ox 98 98 99 Oxygen Delivery Method Room Air Room Air Room Air 09/23/24 20:06 09/23/24 21:21 09/23/24 21:39 Temperature 99.1 F 97.6 F L Temperature Source Oral Pulse Rate 85 87 Pulse Strength Respiratory Rate 18 18 Respiratory Effort Normal Non-Labored Respiratory Depth Normal Respiratory Pattern Normal Blood Pressure 158/95 H 137/78 H Blood Pressure Mean 116 97 Blood Pressure Source Monitor Blood Pressure Position Semi-Fowlers Blood Pressure Location Right Arm Pulse Ox 96 95 Oxygen Delivery Method Room Air Room Air 09/23/24 22:09 09/24/24 03:07 09/24/24 05:27 Temperature 98.1 F Temperature Source Oral Pulse Rate 87 Pulse Strength Normal (2+) Respiratory Rate 16 Respiratory Effort Normal Non-Labored Respiratory Depth Normal Respiratory Pattern Normal Blood Pressure 149/88 H Blood Pressure Mean 108 Blood Pressure Source Monitor Blood Pressure Position Semi-Fowlers Blood Pressure Location Right Arm Pulse Ox 94 Oxygen Delivery Method Room Air Room Air Weight Weight: 100.2 kg Body Mass Index (BMI) 34.7 Physical Exam Const alert and oriented x3 General Appearance: cooperative HEENT normocephalic, head/scalp atraumatic, EAC's normal and TM's normal bilaterally Eyes PERRL and EOMs intact bilaterally Pupil: sluggish Neck no lymphadenopathy, supple and no JVD General: trachea midline Lymph Lymphatic: no lymphadenopathy noted, lymphedema and lymphadenopathy Resp normal respiratory effort, normal air movement and clear to auscultation bilaterally Cardio regular rate, regular rhythm and peripheral pulses 2+ throughout GI soft to palpation, non-tender and non-distended Extremity normal capillary refill and no clubbing, cyanosis or edema General Extremity: no tenderness to palpation of joints or extremities Skin no rashes or lesions noted General Skin Exam: turgor normal Lesions: no lesions Rashes: no rashes Neuro CN's II-XII intact bilaterally Speech: speech normal Motor Exam: strength 5/5 throughout; Negative for general weakness Psych thought process normal, cooperative and affect normal Appearance: appropriate Results Medical Records Data Attestation: I reviewed the patient's medical records Lab / Micro Data 09/23/24 14:09 09/23/24 14:09 Labs: Laboratory Results - last 24 hr 09/23/24 14:09: WBC 7.0, RBC 5.20, Hgb 16.2, Hct 48.6, MCV 93.5, MCH 31.2, MCHC 33.3, RDW Std Deviation 45.6 H, RDW Coeff of Luther 13.4, Plt Count 150, MPV 10.5, Immature Gran % (Auto) 0.300, Neut % (Auto) 72.2 H, Lymph % (Auto) 15.4 L, [place] % (Auto) 9.1, Eos % (Auto) 2.4, Baso % (Auto) 0.6, Absolute Neuts (auto) 5.0, Absolute Lymphs (auto) 1.07, Nucleated RBC % 0, Sodium 138, Potassium 4.4, Chloride 101, Carbon Dioxide 23.1, Anion Gap 15, BUN 34 H, Creatinine 2.08 H, E stim Creat Clear Calc 33.03 L, Est GFR (MDRD) Non-Af 32 L, BUN/Creatinine Ratio 16.3, Glucose 210 H, Calcium 9.2, Total Bilirubin 1.07, AST 23, ALT 13, Alkaline Phosphatase 124, Total Protein 7.0, Albumin 4.3, Globulin 2.7, Albumin/Globulin Ratio 1.6, Lipase 44 09/23/24 19:19: Urine Color Yellow, Urine Clarity Clear, Urine pH 7.0, Ur Specific [place] 1.010, Urine Protein 30 H, Urine Glucose (UA) 1000 H, Urine Ketones Negative, Urine Occult Blood 10 H, Urine Nitrite Negative, Urine Bilirubin Negative, Urine Urobilinogen Normal, Ur Leukocyte Esterase Negative, Urine RBC 0-5 SEEN, Urine WBC 0-5 SEEN, Ur Squamous Epith Cells 0-5 SEEN, Urine Bacteria 0 SEEN, Urine Mucus 0 SEEN Imaging Radiology Impression Abdomen/Pelvis CT 09/23/24 17:04 IMPRESSION: Left distal ureter 6 mm calculus with [id number] upstream hydroureteronephrosis. Severe prostatomegaly. Reading Location: [id number] Abdomen X-Ray 09/24/24 06:10 IMPRESSION: There is a 9 mm ureteral stone overlying the left SI joint which corresponds with the left ureteral stone seen on the recent CT in this region. Reading Location: [facility] Assessment & Plan Assessment/Plan (1) Chronic kidney disease (CKD): (2) Intractable pain: (3) Inability to walk: (4) Ureteral calculus: PLAN: Plan to take the surgery for ureteroscopy laser lithotripsy of stone and stent placement left side n.p.o. midnight
[2024-09-24 08:17] VITALS: BP 160/100; PULSE 88; RESP 16; TEMP 36.5; O2SAT 96
[2024-09-24] MEDS: Levothyroxine 100 MCG Tablet 200 MCG PO (09:10)
[2024-09-24] MEDS: Losartan Potassium 25 MG Tablet 12.5 MG PO (09:11)
[2024-09-24] MEDS: Tolterodine Tartrate 2 MG CAP.SA PO (09:12)
[2024-09-24] MEDS: Furosemide 20 MG Tablet PO (09:12)
[2024-09-24] MEDS: amLODIPine 5 MG Tablet PO (09:13)
[2024-09-24] MEDS: Sertraline 50 MG Tablet PO (09:14)
[2024-09-24] MEDS: Insulin Glargine-YFGN 100 UNIT/ML Pen 30 UNIT SC (09:22)
[2024-09-24] MEDS: Famotidine 20 MG Tablet 10 MG PO ×2 (09:35→21:13)
[2024-09-24 09:36] VITALS: BP 160/100; PULSE 88
[2024-09-24] MEDS: Metoprolol Tartrate 25 MG Tablet 12.5 MG PO ×2 (09:36→21:11)
[2024-09-24] MEDS: Potassium Chloride Oral Tablet 10 MEQ PO (10:24)
[2024-09-24] MEDS: Acetaminophen 500 MG Tablet PO (10:32)
[2024-09-24] MEDS: Docusate Sodium 100 MG Capsule PO (11:12)
[2024-09-24] MEDS: CLARIFY ORDER 1 EACH NOTE (11:20)
--- NOTE | 2024-09-24 15:21 | CASEMGMT ---
Met with patient to review ALFARO form. ALFARO form and its content were verbally explained and patient?s questions were answered to the best of my ability. Patient voiced understanding and signed ALFARO form. Patient provided a copy of signed ALFARO form and original placed in patient?s chart. Patient had no further questions or concerns.
[2024-09-24 15:27] VITALS: BP 116/75; PULSE 88; RESP 17; TEMP 36.5; O2SAT 95
[2024-09-24] MEDS: 0.9% Normal Saline (1000mL) 1,000 ML 50 ML IV (16:34)
[2024-09-24 21:09] VITALS: BP 151/87; PULSE 86; RESP 16; TEMP 36.6; O2SAT 92
[2024-09-24 21:11] VITALS: PULSE 86
[2024-09-24] MEDS: Tamsulosin HCl 0.4 MG Capsule 0.8 MG PO (21:12)
[2024-09-24] MEDS: CARBIDOPA/LEVODOPA 1 EACH TABLET.ER PO (21:12)
[2024-09-24] MEDS: Atorvastatin Calcium 40 MG Tablet PO (21:12)
[2024-09-25] VITALS (14 sets, daily range): BP systolic 84–144; BP diastolic 58–96; PULSE 82–88; RESP 15–16; TEMP 36.1–36.8; O2SAT 93–97; BMI 35.6
[2024-09-25] MEDS: Acetaminophen 500 MG Tablet PO (00:37)
--- NOTE | 2024-09-25 05:55 | EKG12_ITS ---
Test Reason : PRE OP Blood Pressure : */* mmHG Vent. 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
[2024-09-25] MEDS: 0.9% Normal Saline (1000mL) 1,000 ML 50 ML IV (06:06)
[2024-09-25 06:30] LABS: Absolute Neutrophil Count 3.3 X10^3/uL (2.0-7.7); Basophil# 0.04 X10^3/uL; Basophil% 0.7 % (0-1); Eosinophil# 0.27 X10^3/uL; Eosinophils% 4.4 % (0-5); Hematocrit 41.8 % (40-54); Lymphocyte % 29.4 % (19-41); Mean Corp Hgb Conc 33.5 g/dL (32-36); Mean Corpuscular Hgb 31.6 pg (27.0-32.0); Mean Corpuscular Volume 94.4 fL (80-94); Mean Platelet Vol. 10.7 fl (6.2-12.0); Monocyte# 0.71 X10^3/uL; Monocyte% 11.6 % (0-10); NRBC Flagged by Analyzer 0 % (0-5); Neutrophil # 3.29 X10^3/uL (2.7-7.7); Neutrophil % 53.7 % (47-70); Platelet Count 129 K/mm3 (150-450); RBC Distribution Width CV 13.5 % (11.6-14.6); RBC Distribution Width SD 47.7 fl (35.1-43.9); Red Blood Count 4.43 M/mm3 (4.6-6.2); White Blood Count 6.1 K/mm3 (4.4-11.0)
[2024-09-25 07:01] LABS: Anion Gap 13 (5-15); BUN 32 mg/dL (4-19); BUN/Creat Ratio 13.6 RATIO (10-20); Calcium,Total 8.6 mg/dL (7.6-11.0); Carbon Dioxide 22.7 mmol/L (21.0-32.0); Chloride 104 mmol/L (98-108); Creatinine, Serum 2.34 mg/dL (0.70-1.20); EST Glomerular Filtration Rate 28 (>60); Estimated Creatinine Clearance 28.37 ml/min (50-250); Glucose 122 mg/dL (70-99); Potassium 3.8 mmol/L (3.3-5.1); Sodium Level 139 mmol/L (133-145)
--- NOTE | 2024-09-25 07:36 | NURSING ---
This Rn is aware of vitals that were taken by [employer]ER student this morning.
[2024-09-25] MEDS: Metoprolol Tartrate 25 MG Tablet 12.5 MG PO (07:50)
[2024-09-25] MEDS: amLODIPine 5 MG Tablet PO (07:51)
--- NOTE | 2024-09-25 08:44 | CASEMGMT ---
TC from [facility] at the [facility], updated on pt status.
--- NOTE | 2024-09-25 09:05 | NURSING ---
Pt off the unit, brought down to surgery via bed.
--- NOTE | 2024-09-25 09:30 | PRE.ANES_ITS ---
ASA Classification* ASA Classification ASA Classification: 3 Assessment & Plan Anesthesia* Anesthesia Assessment Anesthesia Assessment: Discussed sedation and/or anesthesia options, risks, benefits, and alternatives with patient/parents/legal guardian/POA. Questions invited. The patient/parents/legal guardian/POA seems to understand and agrees to proceed with anesthesia plan. Reviewed the physical assessment, medical history, allergy history and patient home medications list prior to surgery/procedure/anesthetic and documented any changes. Performed airway and anesthesia risk assessments. Anesthesia Type Anesthesia Type: General (Cousin with history of MH. Avoid inhaled volatile anesthetics and succinylcholine. Patient is allergic to local anesthetics as well. Unclear reaction.) History Source History Obtained from:: Patient and Chart Anesthesia Focused Assessment* Temperature: 98.3 F Pulse Rate: 88 Blood Pressure: 141/86 Respiratory Rate: 16 Pulse Ox: 96 Oxygen Delivery Method: Room Air Oxygen Flow Rate (L/min): 2 Airway Assessment Mouth opens: >3 cm Mallampati Score: III Teeth Condition: Missing (Patient is edentulous.) Neck Range of motion (ROM): Limited ROM Labs Anesthesia Preop lab: CBC WBC 6.1 K/mm3 (4.4-11.0) 09/25/24 05:25 09/25/24 RBC 4.43 M/mm3 (4.6-6.2) L 09/25/24 05:25 09/25/24 Hgb 14.0 g/dL (13.0-16.5) 09/25/24 05:25 09/25/24 Hct 41.8 % (40-54) 09/25/24 05:25 09/25/24 Plt Count 129 K/mm3 (150-450) L 09/25/24 05:25 09/25/24 CHEMISTRY Potassium 3.8 mmol/L (3.3-5.1) 09/25/24 05:25 09/25/24 Sodium 139 mmol/L (133-145) 09/25/24 05:25 09/25/24 Magnesium 2.4 mg/dL (1.6-2.6) 04/14/24 11:09 04/14/24 Phosphorus 4.4 mg/dL (2.5-4.9) 04/29/13 06:20 04/29/13 BUN 32 mg/dL (4-19) H 09/25/24 05:25 09/25/24 Creatinine 2.34 mg/dL (0.70-1.20) H 09/25/24 05:25 Glucose 122 mg/dL (70-99) H 09/25/24 05:25 09/25/24 POC Glucose 150 mg/dL (74-106) H 04/17/24 21:45 04/17/24 COAG PT 14.3 SECONDS (11.7-14.9) 02/18/21 19:25 Pre-Assessment Diagnosis/Proposed Procedure Planned Operative Procedure(s): Cystoscopy, left ureteroscopy, laser stone and stent. 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 When Was Last Pacemaker Check QUESTION #4 FULL TEXT: You/Your Family Experience fever (hyperthermia) with Anesthesia Last Oral Intake Last Oral intake: Last Oral Intake NPO since 00:00 09/25/24 07:57 Meds taken in AM with sips of Yes 09/25/24 07:57 water? Meds patient instructed to Lopressor 12.5mg at 0750 and 09/25/24 07:57 take am of surgery norvasc at the same time. PONV PONV - crime scene evidence technician: PONV - crime scene evidence technician Female HX of Motion Sickness HX of N/V After Surgery Non-Smoker Duration of Surgery greater than 60 minutes Number of Risk Factors PONV Score Height & Weight Height & Weight: Anesthesia: Height & Weight Height 5 ft 6 in 09/25/24 07:57 Weight: 100.2 kg 09/25/24 07:57 Body Mass Index (BMI) 35.6 09/25/24 07:57 Respiratory Assessment Respiratory Assessment - crime scene evidence technician: Respiratory Tract Infection Hx - crime scene evidence technician Hx Respiratory Tract Infection No 09/23/24 21:37 STOP Sleep Apnea STOP Sleep Apnea - crime scene evidence technician: STOP Sleep Apnea - crime scene evidence technician Hx Hypertension Yes 09/23/24 21:27 Hx Sleep Apnea Yes 09/23/24 21:27 CPAP Yes 09/23/24 21:27 BIPAP No 09/23/24 21:27 Do you snore loudly (louder than talking or can be heard Do you often feel tired/ fatigued/ sleepy during daytime? Has anyone observed you stop breathing during sleep? STOP Results Positive 09/23/24 21:27 QUESTION #5 FULL TEXT : Do you snore loudly (louder than talking or can be heard through closed doors)? 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 Specify any problems Hx of Preganancy in last 3 N/A 09/23/24 21:27 Months Nurse Filling Out Transfusion CSIGNORIN 09/23/24 21:27 & Questions: Date: 09/23/24 09/23/24 21:27 Time: 21:30 09/23/24 21:27 Patient unable to answer at this time (ie. confused, unrespo /Reproduction History /Reproductive History - crime scene evidence technician: /Reproductive Hx- crime scene evidence technician Hx Now Gestational Age (in weeks): EDC: Hx Hx Para Hx Section SAB Active Medications Active Medications: Current Medications Generic Name Dose Route Start Last Admin Trade Name Freq PRN Reason Stop Dose Admin Acetaminophen 500 mg 09/23/24 22:01 09/25/24 00:37 Acetaminophen 500 Mg Tablet PO 500 mg Q4H PRN PRN Administration Pain 1-10 or Fever Amlodipine Besylate 5 mg 09/24/24 10:00 09/25/24 07:51 Amlodipine 5 Mg Tablet PO 5 mg DAILY RUSTY Administration Protocol Atorvastatin Calcium 40 mg 09/24/24 22:00 09/24/24 21:12 Atorvastatin Calcium 40 Mg Tablet PO 40 mg QHS RUSTY Administration Carbidopa/Levodopa 1 each 09/24/24 22:00 09/24/24 21:12 Carbidopa/Levodopa 1 Each Tablet.Er PO 1 each QHS RUSTY Administration Docusate Sodium 100 mg 09/24/24 10:27 09/24/24 11:12 Docusate Sodium 100 Mg Capsule PO 100 mg DAILY PRN PRN Administration CONSTIPATION Famotidine 10 mg 09/24/24 10:00 09/24/24 21:13 Famotidine 20 Mg Tablet PO 10 mg BID RUSTY Administration Furosemide 20 mg 09/24/24 10:00 09/24/24 09:12 Furosemide 20 Mg Tablet PO 20 mg DAILY RUSTY Administration Protocol Sodium Chloride 250 mls @ 15 mls/hr 09/23/24 21:08 IV .[id number] PRN Saline Flush Sodium Chloride 250 mls @ 15 mls/hr 09/23/24 21:08 IV .[id number] PRN Additional IVPB Infusion Sodium Chloride 1,000 mls @ 50 mls/hr 09/23/24 22:05 09/25/24 06:06 IV 50 mls/hr .Q20H RUSTY Administration Cefazolin Sodium 2 gm/ Sodium 110 mls @ 200 mls/hr 09/25/24 09:26 Chloride IV 09/25/24 09:58 X1 ONE Insulin Glargine 30 unit 09/24/24 10:00 09/24/24 09:22 Insulin Glargine-Yfgn 100 Unit/Ml Pen SC 30 unit DAILY RUSTY Administration Insulin Human Lispro 8 unit 09/24/24 17:00 09/24/24 17:06 Insulin Lispro 100 Unit/Ml Insuln.Pen SC Not Given [facility] Levothyroxine Sodium 200 mcg 09/24/24 08:00 09/25/24 05:03 Levothyroxine 100 Mcg Tablet PO Not Given DAILY@0600 RUSTY Losartan Potassium 12.5 mg 09/24/24 10:00 09/24/24 09:11 Losartan Potassium 25 Mg Tablet PO 12.5 mg DAILY RUSTY Administration Protocol Metoprolol Tartrate 12.5 mg 09/24/24 10:00 09/25/24 07:50 Metoprolol Tartrate 25 Mg Tablet PO 12.5 mg BID RUSTY Administration Protocol Morphine Sulfate 2 mg 09/23/24 22:01 09/24/24 05:29 Morphine 2 Mg/Ml Syringe IV 2 mg Q2H PRN PRN Administration Pain Score 6-10 Ondansetron HCl 4 mg 09/23/24 22:01 Ondansetron 4 Mg/2 Ml Vial IV Q6H PRN PRN NAUSEA/VOMITING Potassium Chloride 10 meq 09/24/24 08:00 09/25/24 07:52 Potassium Chloride Oral Tablet 10 Meq PO Not Given DAILYCM RUSTY Sertraline HCl 50 mg 09/24/24 10:00 09/24/24 09:14 Sertraline 50 Mg Tablet PO 50 mg DAILY RUSYT Administration Sodium Chloride 10 - 40 ml 09/23/24 21:08 09/24/24 05:29 0.9% Saline Lock 10 Ml Syringe IV 10 ml UD PRN Administration SALINE FLUSH Tamsulosin HCl 0.8 mg 09/24/24 22:00 09/24/24 21:12 Tamsulosin Hcl 0.4 Mg Capsule PO 0.8 mg QHS RUSTY Administration Tolterodine Tartrate 2 mg 09/24/24 10:00 09/24/24 09:12 Tolterodine Tartrate 2 Mg Cap.Sa PO 2 mg DAILY RUSTY Administration [facility] Medical History Former tobacco use History of COVID-19 History of DVT (deep vein thrombosis) Coronary artery disease Essential hypertension Tubular adenoma of colon Chronic diastolic heart failure ANABELL (obstructive sleep apnea) Insomnia Vitamin D deficiency Proteinuria BPH (benign prostatic hyperplasia) Restless leg syndrome Hypertensive heart disease with acute diastolic congestive heart failure Mixed hyperlipidemia Allergic rhinitis Diabetes Depression GERD (gastroesophageal reflux disease) Obesity Hypothyroid CHF (congestive heart failure) Hyperlipidemia Home Medications ?Medication ?Instructions ?Recorded ?Last Taken ?Type aspirin 81 mg chewable tablet 81 mg PO DAILY heart hea lth 03/10/13 04/14/24 History atorvastatin 40 mg tablet 40 mg PO QHS cholesterol 06/1804/13/24 History levothyroxine 200 mcg tablet 200 mcg PO DAILY thyroid 03/10/13 04/14/24 History (Levoxyl) nitroglycerin 0.4 mg sublingual 0.4 mg sublingual Q5M PRN Chest 03/10/13 05/02/18 History tablet Pain sertraline 50 mg tablet 50 mg PO DAILY mental health 04/14/15 05/02/18 History famotidine 10 mg tablet 10 mg PO DAILY reflux 04/14/24 History semaglutide 0.25 mg or 0.5 mg (2 0.5 mg subcut TH diab etes 02/18/21 Unknown History mg/1.5 mL) subcutaneous pen injector (Ozempic) carbidopa ER 25 mg-levodopa 100 mg 1 tab PO QHS tremor s 04/14/24 04/13/24 History tablet,extended release multivitamin with iron 1 tab PO DAILY multivitamin 04/14/24 04/14/24 History vit C 250 mg-vit E 90 mg-zinc 40 1 tab PO BID vitamin 04/14/24 04/14/24 History mg-copper 1 [id number] capsule (PreserVision AREDS-2) clopidogrel 75 mg tablet 75 mg PO DAILY antiplatelet 09/23/24 Unknown History insulin aspart U-100 100 unit/mL 8 unit subcut QPM heydi betes 09/23/24 Unknown History (3 mL) subcutaneous pen (Novolog FlexPen U-100 Insulin aspart) insulin glargine 100 unit/mL (3 30 unit subcut BID heydi betes 09/23/24 Unknown History mL) subcutaneous pen (Lantus Solostar U-100 Insulin) losartan 25 mg tablet 12.5 mg PO DAILY htn 5 Unknown History potassium chloride 10 mEq 10 meq PO DAILY supplement 0 09/23/24 Unknown History tablet,extended release (Klor-Con) tamsulosin 0.4 mg capsule (Flomax) 0.8 mg PO QHS bladd er 09/23/24 Unknown History trospium 20 mg tablet 20 mg PO BID antispasmodic 0 09/23/24 Unknown History cholecalciferol (vitamin D3) 50 2,000 unit PO DAILY Unknown History mcg (2,000 unit) chewable tablet empagliflozin 25 mg tablet 25 mg PO DAILY 09/24/24 Unk nown History furosemide 20 mg tablet 20 mg PO Q12H diuretic 09/24 Unknown History magnesium oxide 420 mg tablet 420 mg PO QHS supplement 09/24/24 Unknown History metoprolol tartrate 25 mg tablet 50 mg PO Q12H htn 09/25/24 History trazodone 50 mg tablet 25 mg PO QHS PRN sleep 09/24 Unknown History Allergy/AdvReac Type Severity Reaction Status Date / Time Anesthetics - Amide Type - Allergy Other Verified 09/23/24 13:16 Select A Anesthetics - Rivka Type- Allergy Other Verified 09/23/24 13:16 Parabens albuterol AdvReac Mild thrush Verified 09/23/24 13:16 Family History Father CAD (coronary artery disease) Myocardial infarction Diabetes Heart disease Hypertension Brother Hypertension Diabetes Mother No problems noted. Surgical History S/P thyroidectomy S/P arthroscopic knee surgery S/P hemorrhoidectomy Hx of elbow surgery S/P CABG x 4 S/P coronary artery stent placement Hx of mitral valve repair Social History household members: spouse Smoking Status: Former smoker quit date: 09/26/73 pack-years: 5 how long ago did patient quit smoking: Additional chew tobacco use history, quit 01/15/2007. alcohol intake: never substance use type: does not use Review of Systems (Anesthesia) ROS Narrative System reviewed and no additional complaints, except as documented.
--- NOTE | 2024-09-25 10:37 | PCM.PN.GU ---
Subjective Subjective Plan to proceed with laser lithotripsy of obstructing stone in the left side and stent placement. Objective Data Objective Data Vital Signs: Vital Signs Temp Pulse Resp BP Pulse Ox O2 Del Method O2 Flow Rate 98.3 F 88 16 141/86 H 96 Room Air 2 09/25/24 09:32 09/25/24 09:32 09/25/24 09:32 09/25/24 09:32 09/25/24 09:32 09/25/24 09:45 09/25/24 09:32 Oxygen Flow Rate (L/min) 2 Oxygen Delivery Method Room Air Weight: 100.2 kg Body Mass Index (BMI) 35.6 Intake & Output: Intake and Output for Last 24 Hours 09/23/24 09/24/24 09/25/24 23:59 23:59 23:59 Intake Total 500 / 500 1686.67 / 1985.67 976.67 / 976.67 Output Total 0 / 0 Balance 500 / 500 1686.67 / 976.67 / 976.67 Lab / Micro Data 09/25/24 05:25 09/25/24 05:25 Labs: Laboratory Results - last 24 hr 09/25/24 05:25: WBC 6.1, RBC 4.43 L, Hgb 14.0, Hct 41.8, MCV 94.4 H, MCH 31.6, MCHC 33.5, RDW Std Deviation 47.7 H, RDW Coeff of Luther 13.5, Plt Count 129 L, MPV 10.7, Immature Gran % (Auto) 0.200, Neut % (Auto) 53.7, Lymph % (Auto) 29.4, Snyder % (Auto) 11.6 H, Eos % (Auto) 4.4, Baso % (Auto) 0.7, Absolute Neuts (auto) 3.3, Absolute Lymphs (auto) 1.80, Nucleated RBC % 0, Sodium 139, Potassium 3.8, Chloride 104, Carbon Dioxide 22.7, Anion Gap 13, BUN 32 H, Creatinine 2.34 H, Estim Creat Clear Calc 28.37 L, Est GFR (MDRD) Non-Af 28 L, BUN/Creatinine Ratio 13.6, Glucose 122 H, Hemoglobin A1c 7.0 H, Calcium 8.6
[2024-09-25] MEDS: Cefazolin 2 GM in 0.9% Normal Saline (100mL Bag) 100 ML IV (10:56)
--- NOTE | 2024-09-25 12:19 | OP.PCM_ITS ---
Operative Report (Standard) Operative Information Date of Procedure: 09/25/24 Pre-Operative Diagnosis: Distal left ureteral calculi Post-Operative Diagnosis: Impacted stone in the distal left ureter Surgery/Procedure Performed: Cystoscopy, left retrograde pyelogram, balloon dilation of left ureter, left ureteroscopy laser lithotripsy of stone and left stent email campaign specialist: No Type of Anesthesia: General RN Documented Start/Stop Times: Operation Date: 09/25/24 10:00 Case Time Into Pre-Op 09/25/24 09:05 Out of Pre-Op 09/25/24 10:49 Anesthesia Start 09/25/24 10:56 Into Room 09/25/24 10:56 Procedure Start 09/25/24 11:15 Procedure End 09/25/24 12:15 Procedure Start Time: 11:15 Procedure Stop Time: 12:20 Select all DRAINS/GRAFTS/IMPLANTS that apply: Drains Drain details: 6 [place] by 26 cm stent Estimated Blood Loss: None Specimen collected: No Description of surgery: Patient was taken back to the operating room after smooth induction of anesthesia he was placed in dorsolithotomy position went in the bladder with a 21 [place] rigid cystourethroscope he had a very large obstructive prostate inside the bladder I cannulated the left ureter orifice with a Glidewire I then balloon dilated the distal left ureter then under fluoroscopy I saw that the ureter would not coil the wire would not go past the stone we attempted multiple times with no success I then left the wire in place and then over the wire went in with a flexible ureteroscope after we balloon dilated the distal ureter I then was able to get up to the stone he could see the stone completely impacted in the ureter I then used a 200 ?m thulium laser fiber with energy settings of 6 Hz and 0.6 J and very slowly and very carefully started lasering the stone try and stay in the middle to avoid lasering the torre of the ureter as a laser this took a long time to finally free up the stone and several fragments and then finally broke loose from the impacted ureter I then lasered all the remaining fragments increase the fiber settings to 10 Hz and 1.0 J and finished lasering the stones completely into little tiny pieces that were quite real way up to the kidney no other stones were seen few tiny fragments up in the kidney all the stones been lasered completely and the smaller fragment that should pass on their own I then worked my way down the ureter put a wire up through the ureteroscope went to the distal ureter no other major fragments seen and then backed out of the ureter then over the wire I placed a stent was a 6 [place] by 26 cm stent advanced a stent in the good position once in good position the stent coiled in the kidney and bladder good position patient ascetic reversed plan to see him back next for cystoscopy stent removal in the office he will go home today. He will go home with antibiotics and his pain medicine. Surgical Findings: Stone impacted in the distal left ureter retrograde pyelogram none of the contrast will go past the stone completely impacted Complications Complications: No Admit VTE Documentation VTE Present on Admission: No VTE Mechan Device Prophylaxis: SCD's VTE Pharm Prophylaxis ordered?: No
--- NOTE | 2024-09-25 12:23 | PCM.POST.ANE ---
Anesthesia: Postop Eval I Current Vital Signs Temperature: 97.4 F Pulse Rate: 84 Blood Pressure: 87/60 Respiratory Rate: 16 Pulse Ox: 93 Oxygen Delivery Method: Room Air Assessment Airway patent: Yes Spontaneous unlabored respirations: Yes Mental status: Awake and Calm nausea: No Vomiting: No Anesthesia Complication: No Fluid Hydration Crystalloid volume administer (ml): 900 Total IV fluid infused: 900 Progress Note Anesthesia document: Postop Eval 1 completed: Yes
--- NOTE | 2024-09-25 13:25 | NURSING ---
Back from Surgery at this time. Assisted helping pt with void in urinal. c/o burning with urination. voided 100cc
[2024-09-25] MEDS: Losartan Potassium 25 MG Tablet 12.5 MG PO (14:09)
[2024-09-25] MEDS: Tolterodine Tartrate 2 MG CAP.SA PO (14:09)
[2024-09-25] MEDS: Sertraline 50 MG Tablet PO (14:09)
[2024-09-25] MEDS: Famotidine 20 MG Tablet 10 MG PO (14:09)
[2024-09-25] MEDS: Furosemide 20 MG Tablet PO (14:17)
--- NOTE | 2024-09-25 15:00 | CASEMGMT ---
STEPHON CM in pt room, pt sitting up in bed in no distress with at bedside. Pt states he is indep at home. He states he has a rollator if needed as well as a chairlift to the basement, walk in shower, ramp to enter the one story home. Pt states he fell in the winter and was in [place] for 3wks followed by outpt therapy at [facility]. Pt feels he has regained his strength and denies any need for therapy now. Pt reports he is I in ADLs. Pt and deny any needs.
--- NOTE | 2024-09-25 15:37 | NURSING ---
Vital Signs just taken, stable. Pt has been able to eat liquids and soft food and keep down. Pt has denied pain post op. Pt has voided 3 times using his urinal. The first two times were drk red and drk red blood clots. This last time he voided in the urinal, it was a little group home worker red, clr, no clots. Pt and feel comfortable going home.
--- NOTE | 2024-09-25 15:47 | POSTOPAN2_ITS ---
Anesthesia Postop Eval I Sum Postop Eval Completion status Anesthesia document: Postop Eval 1 completed: Yes Anesthesia Postop Eval I Summary Anesthesia Postop Eval I Summary: Anesthesia Postop Eval I: Assessment Summary Airway patent Yes 09/25/24 12:26 [email or web address] [email or web address] Spontaneous unlabored Yes 09/25/24 12:26 PLANT [email or web address] respirations Mental status Awake,Calm 09/25/24 12:26 [email or web address] [email or web address] nausea No 09/25/24 12:26 PLANT [email or web address] Vomiting No 09/25/24 12:26 [email or web address] [email or web address] Anesthesia Postop Eval I: Fluid Summary Crystalloid volume administer 900 09/25/24 12:26 [email or web address] (ml) Colloids volume administered ( ml) Blood Product volume administered (ml) Total IV fluid infused 900 09/25/24 12:26 [email or web address] Anesthesia Postop Eval I: Summary Notes Anesthesia Complication No 09/25/24 12:26 [email or web address] Anesthesia Complication Comment: Post-operative progress note Anesthesia: Postop Eval II Evaluation Mental status: Awake Pain Level: 2 nausea: No Vomiting: No
--- NOTE | 2024-09-25 15:47 | PCM.POSTANE2 ---
Anesthesia Postop Eval I Sum Postop Eval Completion status Anesthesia document: Postop Eval 1 completed: Yes Anesthesia Postop Eval I Summary Anesthesia Postop Eval I Summary: Anesthesia Postop Eval I: Assessment Summary Airway patent Yes 09/25/24 12:26 [email or web address] [email or web address] Spontaneous unlabored Yes 09/25/24 12:26 SOFTWARE [email or web address] respirations Mental status Awake,Calm 09/25/24 12:26 SOFTWARE [email or web address] nausea No 09/25/24 12:26 SOFTWARE [email or web address] Vomiting No 09/25/24 12:26 SOFTWARE [email or web address] Anesthesia Postop Eval I: Fluid Summary Crystalloid volume administer 900 09/25/24 12:26 SOFTWARE [email or web address] (ml) Colloids volume administered ( ml) Blood Product volume administered (ml) Total IV fluid infused 900 09/25/24 12:26 SOFTWARE [email or web address] Anesthesia Postop Eval I: Summary Notes Anesthesia Complication No 09/25/24 12:26 SOFTWARE [email or web address] Anesthesia Complication Comment: Post-operative progress note Anesthesia: Postop Eval II Evaluation Mental status: Awake Pain Level: 2 nausea: No Vomiting: No
== END 2024-09-25 16:15 | disposition home or self-care (01) ==
LOC: ED 19:59 → MS3 20:12
PROVIDERS: Anesthesiology; Admitting Provider Urology; Emergency Provider Emergency Medicine; PCP Family Medicine; Visit Provider Urology
PROC: 0TJ98ZZ Inspection of Ureter, Via Natural or Artificial Opening Endoscopic (ICD-10-PCS; CPT 52352; principal; 2024-09-25 09:45)
DX: N13.2 Hydronephrosis with renal and ureteral calculous obstruction (principal); I13.0 Hypertensive heart and chronic kidney disease with heart failure and stage 1 through stage 4 chronic kidney disease, or unspecified chronic kidney disease; I50.32 Chronic diastolic (congestive) heart failure; E11.22 Type 2 diabetes mellitus with diabetic chronic kidney disease; Z79.4 Long term (current) use of insulin; I25.10 Atherosclerotic heart disease of native coronary artery without angina pectoris; N18.9 Chronic kidney disease, unspecified; Z87.891 Personal history of nicotine dependence; E78.2 Mixed hyperlipidemia; Z86.718 Personal history of other venous thrombosis and embolism; E03.9 Hypothyroidism, unspecified; Z79.890 Hormone replacement therapy; Z79.899 Other long term (current) drug therapy
CPT/HCPCS: 52353; 52344; 00918; 36415; 74019; 74176; 76000; 80048; 80053; 81001; 83036; 83690; 85025; 93005; 96361; 96374; 96376; 99221; 99283; A4216; C1769; C2617; G0378

== ENCOUNTER 2024-09-28 07:42 | Emergency (ER) | payer OTHER, SELFPAY ==
[2024-09-28 07:45] VITALS: BP 159/97; PULSE 87; RESP 16; TEMP 36.7; O2SAT 98; BMI 36.0
--- NOTE | 2024-09-28 08:14 | CT_ITS ---
PROCEDURE: ABDOMEN/PELVIS W IV CONT ONLY 09/28/2024 REASON FOR EXAM: LLQ PAIN, RECENT LITHOTRIPSY TECHNIQUE: ABDOMEN/PELVIS W IV CONT ONLY. Coronal and Sagittal reconstruction series were provided. CONTRAST: Isovue-300 VOLUME: 100 mL One or more dose reduction techniques were used (e.g., Automated exposure control, adjustment of the mA and/or kV according to patient size, use of iterative reconstruction technique. RADIATION DOSE SUMMARY: CTDlvol: 20.7 mGy DLP: 1156.23 mGycm COMPARISON: Prior study dated September 23, 2024. FINDINGS: Lung bases: Mild dependent atelectasis. Calcified granuloma in the right lower lobe. Coronary artery calcification. Liver: Diffuse fatty infiltration. 1 cm hypodensity in the dome of the right lobe of the liver suggestive of a small cyst. This is unchanged. Gallbladder: Mildly distended gallbladder. Spleen: Normal size. Pancreas: Normal size without evidence of mass surrounding inflammation or ductal dilation. Adrenals: Unremarkable Kidneys: Moderate degree of left hydronephrosis and hydroureter. Nonobstructive calculus is seen in the lower pole calyx of the left kidney. A left-sided double-J stent catheter is seen with the proximal tip in the left renal pelvis and distal tip in the urinary bladder. There is malrotation of the right kidney. Mild degree of right hydronephrosis. Bladder: Mild degree of bladder wall thickening. The prostate gland is enlarged. It measures 4.6 cm by 6.2 cm. Central prostatic calcifications present. Bowel: Colonic diverticulosis without diverticulitis. Appendix: Unremarkable Lymph nodes: Unremarkable Vasculature: Mild diffuse atherosclerotic calcifications are noted. Peritoneum / Retroperitoneum: Unremarkable Bones: Degenerative changes of the spine. CT/Abdomen/Pelvis W IV Cont ONLY IMPRESSION: Status post left double J stent catheter placement. Residual left hydronephrosis and hydroureter. The previously seen the distal l eft ureteral calculus is not seen at this time. Sigmoid diverticulosis. Reading Location: [id number]
--- NOTE | 2024-09-28 08:14 | EX.ED.DYSGE1 ---
HPI History of Present Illness Chief Complaint: Flank Pain Narrative Narrative: Patient is a 79-year-old male with past medical history of DVT, tubular adenoma of the colon, ANABELL, kidney stones with recent lithotripsy, diabetes, CHF, hypothyroidism who presents to the emergency department chief complaint of abdominal pain. Patient states that last week he was diagnosed with a kidney stone and had lithotripsy performed. He states that afterwards he was still having discomfort however he states that nothing seem to be worsening. He states that yesterday afternoon he actually started feeling better and then by the evening again he started feeling worse with painful urination. He states that he has not any blood thinning medications currently. He currently rates his pain a 5 out of 10 in the left lower portion of his abdomen. Denies any recent contacts denies dark tarry stools blood in the stool [facility] Medical History Former tobacco use History of COVID-19 History of DVT (deep vein thrombosis) Coronary artery disease Essential hypertension Tubular adenoma of colon Chronic diastolic heart failure ANABELL (obstructive sleep apnea) Insomnia Vitamin D deficiency Proteinuria BPH (benign prostatic hyperplasia) Restless leg syndrome Hypertensive heart disease with acute diastolic congestive heart failure Mixed hyperlipidemia Allergic rhinitis Diabetes Depression GERD (gastroesophageal reflux disease) Obesity Hypothyroid CHF (congestive heart failure) Hyperlipidemia Home Medications ?Medication ?Instructions ?Recorded ?Last Taken ?Type aspirin 81 mg chewable tablet 81 mg PO DAILY heart health 03/10/13 09/27/24 History atorvastatin 40 mg tablet 40 mg PO QHS cholesterol 03/10/13 09/27/24 History levothyroxine 200 mcg tablet 200 mcg PO DAILY thyroid 03/10/13 09/27/24 History (Levoxyl) nitroglycerin 0.4 mg sublingual 0.4 mg sublingual Q5M PRN Chest 03/10/13 05/02/18 History tablet Pain sertraline 50 mg tablet 50 mg PO DAILY mental health 04/14/15 09/27/24 History famotidine 10 mg tablet 10 mg PO DAILY reflux 02/18/21 09/27/24 History semaglutide 0.25 mg or 0.5 mg (2 0.5 mg subcut TH diabetes 02/18/21 09/24/24 History mg/1.5 mL) subcutaneous pen injector (Ozempic) carbidopa ER 25 mg-levodopa 100 mg 1 tab PO QHS tremors 04/14/24 09/27/24 History tablet,extended release multivitamin with iron 1 tab PO DAILY multivitamin 04/14/24 09/27/24 History vit C 250 mg-vit E 90 mg-zinc 40 1 tab PO BID vitamin 04/14/24 09/27/24 History mg-copper 1 [id number] capsule (PreserVision AREDS-2) clopidogrel 75 mg tablet 75 mg PO DAILY antiplatelet 09/23/24 09/27/24 History insulin glargine 100 unit/mL (3 30 unit subcut BID diabetes 09/23/24 09/27/24 History mL) subcutaneous pen (Lantus Solostar U-100 Insulin) losartan 25 mg tablet 12.5 mg PO DAILY htn 09/23/24 09/27/24 History potassium chloride 10 mEq 10 meq PO DAILY supplement 09/23/24 09/27/24 History tablet,extended release (Klor-Con) tamsulosin 0.4 mg capsule (Flomax) 0.8 mg PO QHS bladder 09/23/24 09/27/24 History trospium 20 mg tablet 20 mg PO BID antispasmodic 09/23/24 09/27/24 History cholecalciferol (vitamin D3) 50 2,000 unit PO DAILY 09/24/24 09/27/24 History mcg (2,000 unit) chewable tablet empagliflozin 25 mg tablet 25 mg PO DAILY 09/24/24 09/27/24 History furosemide 20 mg tablet 20 mg PO Q12H diuretic 09/24/24 09/27/24 History magnesium oxide 420 mg tablet 420 mg PO QHS supplement 09/24/24 09/27/24 History metoprolol tartrate 25 mg tablet 50 mg PO Q12H htn 09/24/24 09/27/24 History trazodone 50 mg tablet 25 mg PO QHS PRN sleep 09/24/24 09/27/24 History ciprofloxacin HCl 500 mg tablet 500 mg PO BID #14 tabs 09/25/24 09/27/24 Rx oxycodone 5 mg tablet 5 mg PO Q6H PRN pain 7 days #20 09/25/24 09/27/24 Rx tabs Allergy/AdvReac Type Severity Reaction Status Date / Time Anesthetics - Amide Type - Allergy Other Verified 09/28/24 07:48 Select A [facility]esthetics - [place] Type- Allergy Other Verified 09/28/24 07:48 Parabens albuterol AdvReac Mild thrush Verified 09/28/24 07:48 Family History Father CAD (coronary artery disease) Myocardial infarction Diabetes Heart disease Hypertension Brother Hypertension Diabetes Mother No problems noted. Surgical History History of ureter stent S/P thyroidectomy S/P arthroscopic knee surgery S/P hemorrhoidectomy Hx of elbow surgery S/P CABG x 4 S/P coronary artery stent placement Hx of mitral valve repair Social History household members: spouse Smoking Status: Former smoker quit date: 09/26/73 pack-years: 5 how long ago did patient quit smoking: Additional chew tobacco use history, quit 01/15/2007. alcohol intake: never substance use type: does not use ROS ROS ED ROS Narrative Constitutional: Denies fevers, chills, headaches Eyes: Denies change in vision double vision blurry vision Cardiovascular: Denies chest pain Respiratory: Denies shortness of breath Abdomen: Complains of left-sided abdominal pain as noted above denies nausea vomiting diarrhea : States that he has had persistent hematuria since the lithotripsy this is unchanged as well as his painful urination is unchanged states that he has a stent in place as well Neurological: Denies numbness, weeks, tingling Musculoskeletal: Complains of left-sided back pain Skin: Denies rashes or lesions EXAM Physical Exam Narrative Exam Narrative: General: Patient lying in bed rest comfortably did not appear to be in acute distress Head: Atraumatic, normocephalic Eyes: PERRL bilaterally, EOMI bilateral, no conjunctival injection noted Neck: Soft, supple, trachea midline Cardiovascular: Regular rate and rhythm Respiratory: Clear to auscultation bilaterally Abdomen: Soft, nondistended, mild tenderness palpation left lower quadrant no rebound or guarding on exam Musculoskeletal: Mild CVA tenderness noted on the left side, no tenderness palpation midline of the thoracic lumbar spine Extremities: +5/5 strength noted in the bilateral upper and lower extremities, radial pulses +2/4 in the bilateral extremities, no pedal edema on exam Neurological: Patient following commands knew that he was at [facility] year is 2024 Skin: Warm, dry contact no rashes or lesions noted Const Vital Signs: 09/28/24 07:45 09/28/24 09:43 Temperature 98.0 F Temperature Source Oral Pulse Rate 87 Respiratory Rate 16 Blood Pressure 159/97 H 128/84 H Blood Pressure Mean 117 98 Pulse Ox 98 Oxygen Delivery Method Room Air MDM MDM MDM Narrative Medical decision making narrative: Patient is a 79-year-old male who presents to the emergency department chief complaint of left lower abdominal pain. On the differential diagnosis includes but not limited to diverticulitis, UTI, pyelonephritis, urolithiasis, emphysematous cystitis. Once workup is obtained and reviewed he will be reevaluated Patient's CBC was reviewed showed no evidence leukocytosis white blood count normal at 6.9, hemoglobin is 15.3, platelet count was noted to be normal at 164. Patient sodium normal 141, potassium normal 3.8, creatinine was 2 which appears to be around his baseline, AST and ALT were 28 and 14 respectively. Patient lipase normal at 52, urinalysis reviewed showed 250 blood 25 leukocyte esterase negative nitrites 0-5 white cells with no bacteria seen does not appear to have a urinary tract infection. Patient CT abdomen pelvis with IV contrast reviewed showed status post left double-J stent catheter placement. Residual left hydro and hydroureter previously seen left distal ureteral calculus is not seen at this point time. Sigmoid diverticulosis. Called and spoke with his urologist Dr. Conteh who does believe that this pain is coming from the stent and he states that he has an appointment on to have the stent removed he is recommending following up with him on for this. I discussed this plan with the patient and significant other at bedside they are agreeable this plan they would like to go home this point in time all question concerns answered he was discharged home in stable condition. Lab Data Labs: Laboratory Results - last 24 hr 09/28/24 09/28/24 07:49 09:04 WBC 6.9 RBC 4.91 Hgb 15.3 Hct 45.8 MCV 93.3 MCH 31.2 MCHC 33.4 RDW Std Deviation 45.4 H RDW Coeff of Luther 13.3 Plt Count 164 MPV 10.5 Immature Gran % (Auto) 0.400 Neut % (Auto) 62.2 Lymph % (Auto) 21.5 [place] % (Auto) 10.4 H Eos % (Auto) 5.1 H Baso % (Auto) 0.4 Absolute Neuts (auto) 4.3 Absolute Lymphs (auto) 1.49 Nucleated RBC % 0 Sodium 141 Potassium 3.8 Chloride 102 Carbon Dioxide 22.7 Anion Gap 16 H BUN 26 H Creatinine 2.00 H Estim Creat Clear Calc 33.38 L Est GFR (MDRD) Non-Af 33 L BUN/Creatinine Ratio 12.9 Glucose 149 H Calcium 9.2 Total Bilirubin 1.15 AST 28 ALT 14 Alkaline Phosphatase 120 Total Protein 6.7 Albumin 3.9 Globulin 2.8 Albumin/Globulin Ratio 1.4 Lipase 52 Urine Color Red Urine Clarity Sl. Cloudy Urine pH 7.0 Ur Specific [place] 1.010 Urine Protein 100 H Urine Glucose (UA) 1000 H Urine Ketones Negative Urine Occult Blood 250 H Urine Nitrite Negative Urine Bilirubin Negative Urine Urobilinogen Normal Ur Leukocyte Esterase 25 H Urine RBC 25-50 SEEN Urine WBC 0-5 SEEN Ur Squamous Epith Cells 0 SEEN Urine Bacteria 0 SEEN Urine Mucus 0 SEEN Radiography Diagnostic Testing: Clinical Impression(s) from Imaging Studies Abdomen/Pelvis CT 09/28/24 08:14 IMPRESSION: Status post left double J stent catheter placement. Residual left hydronephrosis and hydroureter. The previously seen the distal left ureteral calculus is not seen at this time. Sigmoid diverticulosis. Reading Location: [facility] Discharge Plan Triage Chief Complaint: Flank Pain ED Provider: Darwin Kruger Dx/Rx/DC Orders Clinical Impression: Left flank pain, Abdominal pain, Hematuria, Status post laser lithotripsy of ureteral calculus Prescriptions: No Action atorvastatin 40 MG tablet 40 mg PO QHS Patient Comments: cholesterol nitroglycerin 0.4 MG tablet 0.4 mg sublingual Q5M PRN (Reason: Chest Pain) Patient Comments: chest pain aspirin 81 MG tablet,chewable 81 mg PO DAILY Patient Comments: heart health levothyroxine [Levoxyl] 200 MCG tablet 200 mcg PO DAILY Patient Comments: thyroid sertraline 50 MG tablet 50 mg PO DAILY Ozempic 0.25 mg or 0.5 mg(2 mg/1.5 mL) Pen Injector 0.5 mg SUBCUT TH famotidine 10 mg Tablet 10 mg PO DAILY carbidopa-levodopa 25-100 mg tablet extended release 1 tab PO QHS multivitamin with iron Tablet 1 tab PO DAILY PreserVision AREDS-2 250-90-40-1 mg capsule 1 tab PO BID tamsulosin [Flomax] 0.4 mg capsule 0.8 mg PO QHS losartan 25 mg tablet 12.5 mg PO DAILY trospium 20 mg tablet 20 mg PO BID Rx Instructions: administer on an empty stomach clopidogrel 75 mg tablet 75 mg PO DAILY potassium chloride [Klor-Con 10] 10 mEq tablet extended release 10 meq PO DAILY insulin glargine [Lantus Solostar U-100 Insulin] 100 unit/mL (3 mL) insulin pen 30 unit subcut BID magnesium oxide 420 mg tablet 420 mg PO QHS empagliflozin 25 mg tablet 25 mg PO DAILY cholecalciferol (vitamin D3) 50 mcg (2,000 unit) tablet,chewable 2,000 unit PO DAILY trazodone 50 mg tablet 25 mg PO QHS PRN (Reason: sleep) furosemide 20 mg tablet 20 mg PO Q12H metoprolol tartrate 25 mg Tablet 50 mg PO Q12H oxycodone 5 mg tablet 5 mg PO Q6H PRN (Reason: pain) 7 Days Qty: 20 0RF ciprofloxacin HCl 500 mg tablet 500 mg PO BID Qty: 14 0RF [facility] Care Provider: [facility] Referrals: Kobi Adair MD [Non-Staff] - Activity Restrictions/Additional Instructions: Follow-up with Dr. Conteh at your next scheduled appointment to have your stent removed. I did discuss with him and he believes that your pain is coming from your stent and likely should get better after this is removed. Return with worsening symptoms or any other concerns. Your CT scan that was done here today did not show any acute findings. Your blood work here today did not show any acute abnormalities either. Print Language: Latvian Disposition Disposition: Home, Self Care
[2024-09-28 08:24] LABS: Absolute Lymphocyte Count 1.49 X10^3/uL (0.83-4.51); Absolute Neutrophil Count 4.3 X10^3/uL (2.0-7.7); Basophil# 0.03 X10^3/uL; Basophil% 0.4 % (0-1); Eosinophil# 0.35 X10^3/uL; Eosinophils% 5.1 % (0-5); Hematocrit 45.8 % (40-54); Hemoglobin 15.3 g/dL (13.0-16.5); Lymphocyte # 1.49 X10^3/ul (0.83-4.51); Lymphocyte % 21.5 % (19-41); Mean Corp Hgb Conc 33.4 g/dL (32-36); Mean Corpuscular Hgb 31.2 pg (27.0-32.0); Mean Corpuscular Volume 93.3 fL (80-94); Mean Platelet Vol. 10.5 fl (6.2-12.0); Monocyte# 0.72 X10^3/uL; Monocyte% 10.4 % (0-10); NRBC Flagged by Analyzer 0 % (0-5); Neutrophil % 62.2 % (47-70); Platelet Count 164 K/mm3 (150-450); RBC Distribution Width CV 13.3 % (11.6-14.6); RBC Distribution Width SD 45.4 fl (35.1-43.9); Red Blood Count 4.91 M/mm3 (4.6-6.2); White Blood Count 6.9 K/mm3 (4.4-11.0)
[2024-09-28 08:41] LABS: ALB/GLOB Ratio 1.4 RATIO (0.9-2.4); AST(SGOT) 28 U/L (<=37); Alanine Aminotransfer ALT/SGPT 14 U/L (<=46); Albumin, Serum 3.9 g/dL (3.4-4.8); Alkaline Phosphatase 120 U/L (40-129); Anion Gap 16 (5-15); BUN 26 mg/dL (4-19); BUN/Creat Ratio 12.9 RATIO (10-20); Calcium,Total 9.2 mg/dL (7.6-11.0); Carbon Dioxide 22.7 mmol/L (21.0-32.0); Chloride 102 mmol/L (98-108); EST Glomerular Filtration Rate 33 (>60); Estimated Creatinine Clearance 33.38 ml/min (50-250); Globulin 2.8 g/dL (2.2-4.2); Glucose 149 mg/dL (70-99); Lipase 52 U/L (13-75); Potassium 3.8 mmol/L (3.3-5.1); Protein, Total 6.7 g/dL (5.9-8.4); Sodium Level 141 mmol/L (133-145); Total Bilirubin 1.15 mg/dL (0.00-1.30)
[2024-09-28 09:09] LABS: Bacteria 0 SEEN /hpf (None Seen); Mucous, Urine 0 SEEN /hpf (<or=2+); Squamous Epithelial Cells - UA 0 SEEN /hpf (0-5)
[2024-09-28 09:24] LABS: Color, Urine Red (Yellow); Glucose, Dipstick 1000 mg/dl (Normal); Ketone-Dipstick Negative (Negative); Leukocyte Esterase-Dipstick 25 /ul (Negative); Nitrite-Dipstick Negative (Negative); Occult Blood-Urine 250 /ul (Negative); Protein-Dipstick 100 mg/dl (Negative); Urine Bilirubin Dipstick Negative (Negative); Urine Clarity Sl. Cloudy (Clear); Urine Urobilinogen Normal (Normal)
[2024-09-28 09:34] LABS: Red Blood Cells-Urine 25-50 SEEN /hpf (0-5)
[2024-09-28 09:35] LABS: White Blood Cells 0-5 SEEN /hpf (0-5)
[2024-09-28 09:43] VITALS: BP 128/84
[2024-09-28 11:00] VITALS: BP 128/89; O2SAT 96
[2024-09-28 11:37] VITALS: BP 128/89; PULSE 94; RESP 18; TEMP 35.8; O2SAT 96
== END 2024-09-28 11:38 | disposition home or self-care (01) ==
PROVIDERS: Emergency Provider Emergency Medicine; Visit Provider Emergency Medicine
DX: R10.32 Left lower quadrant pain (principal); I11.0 Hypertensive heart disease with heart failure; I50.33 Acute on chronic diastolic (congestive) heart failure; E11.9 Type 2 diabetes mellitus without complications; Z79.4 Long term (current) use of insulin; R31.9 Hematuria, unspecified; E78.2 Mixed hyperlipidemia; I25.10 Atherosclerotic heart disease of native coronary artery without angina pectoris; Z95.5 Presence of coronary angioplasty implant and graft; Z96.0 Presence of urogenital implants; Z79.02 Long term (current) use of antithrombotics/antiplatelets; Z79.82 Long term (current) use of aspirin; Z79.899 Other long term (current) drug therapy; Z86.16 Personal history of COVID-19; Z87.891 Personal history of nicotine dependence
CPT/HCPCS: 74177; 80053; 81001; 83690; 85025; 87086; 99285; Q9967; A4216

== ENCOUNTER 2024-09-29 20:41 | Emergency (ER) | payer OTHER, SELFPAY ==
[2024-09-29 20:42] VITALS: BP 111/76; PULSE 89; RESP 22; TEMP 36.1; O2SAT 96; BMI 35.9
[2024-09-29 20:44] VITALS: BP 157/98; PULSE 89; RESP 18; TEMP 36.8; O2SAT 96
--- NOTE | 2024-09-29 21:22 | CT_ITS ---
PROCEDURE: ABDOMEN/PELVIS WITHOUT CONT 09/29/2024 REASON FOR EXAM: LEFT LOWER QUADRANT PAIN, GROSS HEMATURIA, HISTORY TECHNIQUE: ABDOMEN/PELVIS WITHOUT CONT Noncontrast technique limits evaluation of the abdominal and pelvic viscera. Coronal and Sagittal reconstruction series were provided. One or more dose reduction techniques were used (e.g., Automated exposure control, adjustment of the mA and/or kV according to patient size, use of iterative reconstruction technique). COMPARISON: CT abdomen and pelvis on 09/28/2024 FINDINGS: Lung bases: Bibasilar atelectasis. Right pleural calcifications suggestive of prior asbestos exposure. Multivessel coronary calcifications. Liver: Subcentimeter hypodensity at the right hepatic dome is too small to characterize. Gallbladder: Hydropic with hyperdense layering sludge. Spleen: Normal size. Pancreas: Normal size. No surrounding inflammation. Adrenals: Unremarkable Kidneys: Left nephroureteral stent with pigtails in the left ureteropelvic junction and urinary bladder. There is moderate persistent left hydroureteronephrosis, similar to the CT on 09/28/2024. There are hyperdense contents throughout the left renal collecting system, left ureter, and urinary bladder. A tiny nonobstructing stone at the lower pole of the left kidney is unchanged. Right kidney is located lower in the abdomen and with unchanged mild hydronephrosis. Bladder: Punctate focus of air present within the urinary bladder. Mild diffuse wall thickening. Reproductive Organs: Prostatomegaly with coarse calcifications. Bowel: No obstruction or inflammation. Lymph nodes: No significant lymphadenopathy. Vasculature: Moderate diffuse atherosclerotic calcifications are noted. Bones: Degenerative changes of the spine. Soft tissues: Fat containing left inguinal hernia. CT/Abdomen/Pelvis without Cont IMPRESSION: 1. No significant interval change in the moderate left hydroureteronephrosis, with stent in unchanged position. Hyperdense contents within the left renal collecting system, ureter, and urinary bladder m ay represent delayed excretion of the contrast from the CT performed yesterday. Blood products could also appear similar. 2. Punctate focus of air within the urinary bladder could be the result of rec ent instrumentation, though emphysematous cystitis could appear similar. Reading Location: [id number]
[2024-09-29 21:34] LABS: Absolute Lymphocyte Count 1.64 X10^3/uL (0.83-4.51); Absolute Neutrophil Count 5.7 X10^3/uL (2.0-7.7); Basophil# 0.06 X10^3/uL; Basophil% 0.7 % (0-1); Eosinophil# 0.46 X10^3/uL; Eosinophils% 5.2 % (0-5); Hematocrit 44.3 % (40-54); Hemoglobin 14.9 g/dL (13.0-16.5); Lymphocyte # 1.64 X10^3/ul (0.83-4.51); Lymphocyte % 18.7 % (19-41); Mean Corp Hgb Conc 33.6 g/dL (32-36); Mean Corpuscular Hgb 31.4 pg (27.0-32.0); Mean Corpuscular Volume 93.5 fL (80-94); Mean Platelet Vol. 11.3 fl (6.2-12.0); Monocyte# 0.94 X10^3/uL; Monocyte% 10.7 % (0-10); NRBC Flagged by Analyzer 0 % (0-5); Neutrophil # 5.66 X10^3/uL (2.7-7.7); Neutrophil % 64.4 % (47-70); Platelet Count 220 K/mm3 (150-450); RBC Distribution Width CV 13.5 % (11.6-14.6); RBC Distribution Width SD 46.5 fl (35.1-43.9); Red Blood Count 4.74 M/mm3 (4.6-6.2); White Blood Count 8.8 K/mm3 (4.4-11.0)
[2024-09-29] MEDS: Morphine 4 MG/ML Syringe IV ×2 (21:34→23:40)
[2024-09-29] MEDS: Ondansetron 4 MG/2 ML Vial IV (21:34)
[2024-09-29] MEDS: 0.9% Normal Saline (1000mL) 1,000 ML 1000 ML IV (21:34)
[2024-09-29 21:44] VITALS: BP 158/98; PULSE 64; RESP 18; TEMP 36.8; O2SAT 96
[2024-09-29 22:00] VITALS: BP 158/98; PULSE 64; RESP 18; TEMP 36.8; O2SAT 96
[2024-09-29 22:05] LABS: Anion Gap 15 (5-15); BUN 28 mg/dL (4-19); BUN/Creat Ratio 12.3 RATIO (10-20); Calcium,Total 9.2 mg/dL (7.6-11.0); Carbon Dioxide 19.6 mmol/L (21.0-32.0); Chloride 104 mmol/L (98-108); Creatinine, Serum 2.27 mg/dL (0.70-1.20); EST Glomerular Filtration Rate 29 (>60); Estimated Creatinine Clearance 29.35 ml/min (50-250); Glucose 114 mg/dL (70-99); Potassium 4.9 mmol/L (3.3-5.1); Sodium Level 139 mmol/L (133-145)
[2024-09-29 23:00] VITALS: BP 149/99; PULSE 88; RESP 18; TEMP 36.8; O2SAT 95
[2024-09-29 23:04] LABS: Mucous, Urine 0 SEEN /hpf (<or=2+)
[2024-09-29 23:06] LABS: Color, Urine Amber (Yellow); Glucose, Dipstick 1000 mg/dl (Normal); Ketone-Dipstick Negative (Negative); Leukocyte Esterase-Dipstick 100 /ul (Negative); Nitrite-Dipstick Positive (Negative); Occult Blood-Urine 250 /ul (Negative); Protein-Dipstick 100 mg/dl (Negative); Urine Bilirubin Dipstick Negative (Negative); Urine Clarity Cloudy (Clear); Urine Urobilinogen Normal (Normal)
[2024-09-29 23:09] LABS: Bedside Glucose 102 mg/dL (74-106)
[2024-09-29 23:21] LABS: Red Blood Cells-Urine > 100 SEEN /hpf (0-5)
[2024-09-29 23:22] LABS: Bacteria 2+ /hpf (None Seen); Squamous Epithelial Cells - UA 5-10 SEEN /hpf (0-5); Transitional Epithelial - Ur 0-5 SEEN /hpf (0-5); White Blood Cells 10-25 SEEN /hpf (0-5)
--- NOTE | 2024-09-30 00:08 | EX.ED.DYSGE1 ---
HPI History of Present Illness Chief Complaint: Flank Pain [facility] Medical History Former tobacco use History of COVID-19 History of DVT (deep vein thrombosis) Coronary artery disease Essential hypertension Tubular adenoma of colon Chronic diastolic heart failure ANABELL (obstructive sleep apnea) Insomnia Vitamin D deficiency Proteinuria BPH (benign prostatic hyperplasia) Restless leg syndrome Hypertensive heart disease with acute diastolic congestive heart failure Mixed hyperlipidemia Allergic rhinitis Diabetes Depression GERD (gastroesophageal reflux disease) Obesity Hypothyroid CHF (congestive heart failure) Hyperlipidemia Home Medications ?Medication ?Instructions ?Recorded ?Last Taken ?Type aspirin 81 mg chewable tablet 81 mg PO DAILY heart health 03/10/13 09/27/24 History atorvastatin 40 mg tablet 40 mg PO QHS cholesterol 03/10/13 09/27/24 History levothyroxine 200 mcg tablet 200 mcg PO DAILY thyroid 03/10/13 09/27/24 History (Levoxyl) nitroglycerin 0.4 mg sublingual 0.4 mg sublingual Q5M PRN Chest 03/10/13 05/02/18 History tablet Pain sertraline 50 mg tablet 50 mg PO DAILY mental health 04/14/15 09/27/24 History famotidine 10 mg tablet 10 mg PO DAILY reflux 02/18/21 09/27/24 History semaglutide 0.25 mg or 0.5 mg (2 0.5 mg subcut TH diabetes 02/18/21 09/24/24 History mg/1.5 mL) subcutaneous pen injector (Ozempic) carbidopa ER 25 mg-levodopa 100 mg 1 tab PO QHS tremors 04/14/24 09/27/24 History tablet,extended release multivitamin with iron 1 tab PO DAILY multivitamin 04/14/24 09/27/24 History vit C 250 mg-vit E 90 mg-zinc 40 1 tab PO BID vitamin 04/14/24 09/27/24 History mg-copper 1 [id number] capsule (PreserVision AREDS-2) clopidogrel 75 mg tablet 75 mg PO DAILY antiplatelet 09/23/24 09/27/24 History insulin glargine 100 unit/mL (3 30 unit subcut BID diabetes 09/23/24 09/27/24 History mL) subcutaneous pen (Lantus Solostar U-100 Insulin) losartan 25 mg tablet 12.5 mg PO DAILY htn 09/23/24 09/27/24 History potassium chloride 10 mEq 10 meq PO DAILY supplement 09/23/24 09/27/24 History tablet,extended release (Klor-Con) tamsulosin 0.4 mg capsule (Flomax) 0.8 mg PO QHS bladder 09/23/24 09/27/24 History trospium 20 mg tablet 20 mg PO BID antispasmodic 09/23/24 09/27/24 History cholecalciferol (vitamin D3) 50 2,000 unit PO DAILY 09/24/24 09/27/24 History mcg (2,000 unit) chewable tablet empagliflozin 25 mg tablet 25 mg PO DAILY 09/24/24 09/27/24 History furosemide 20 mg tablet 20 mg PO Q12H diuretic 09/24/24 09/27/24 History magnesium oxide 420 mg tablet 420 mg PO QHS supplement 09/24/24 09/27/24 History metoprolol tartrate 25 mg tablet 50 mg PO Q12H htn 09/24/24 09/27/24 History trazodone 50 mg tablet 25 mg PO QHS PRN sleep 09/24/24 09/27/24 History ciprofloxacin HCl 500 mg tablet 500 mg PO BID #14 tabs 09/25/24 09/27/24 Rx oxycodone 5 mg tablet 5 mg PO Q6H PRN pain 7 days #20 09/25/24 09/27/24 Rx tabs cephalexin 500 mg capsule 500 mg PO Q8 #15 CAPSULES 09/30/24 Unknown Rx Allergy/AdvReac Type Severity Reaction Status Date / Time Anesthetics - Amide Type - Allergy Other Verified 09/29/24 20:41 Select A Anesthetics - [place] Type- Allergy Other Verified 09/29/24 20:41 Parabens albuterol AdvReac Mild thrush Verified 09/29/24 20:41 Family History Father CAD (coronary artery disease) Myocardial infarction Diabetes Heart disease Hypertension Brother Hypertension Diabetes Mother No problems noted. Surgical History History of ureter stent S/P thyroidectomy S/P arthroscopic knee surgery S/P hemorrhoidectomy Hx of elbow surgery S/P CABG x 4 S/P coronary artery stent placement Hx of mitral valve repair Social History household members: spouse Smoking Status: Former smoker quit date: 09/26/73 pack-years: 5 how long ago did patient quit smoking: Additional chew tobacco use history, quit 01/15/2007. alcohol intake: never substance use type: does not use EXAM Physical Exam Const Vital Signs: 09/29/24 20:42 09/29/24 20:44 09/29/24 21:44 Temperature 97 F L 98.2 F 98.2 F Temperature Source Temporal Oral Oral Pulse Rate 89 89 64 Respiratory Rate 22 H 18 18 Blood Pressure 111/76 157/98 H 158/98 H Blood Pressure Mean 87 117 118 Pulse Ox 96 96 96 Oxygen Delivery Method Room Air Room Air Room Air 09/29/24 22:00 09/29/24 23:00 Temperature 98.2 F 98.2 F Temperature Source Oral Oral Pulse Rate 64 88 Respiratory Rate 18 18 Blood Pressure 158/98 H 149/99 H Blood Pressure Mean 118 115 Pulse Ox 96 95 Oxygen Delivery Method Room Air Room Air [facility] Lab Data Attestation: I reviewed the patient's lab results. Lab results narrative: CBC is unremarkable. There is no white count or shift. Electrolyte panel is remarkable for BUN/creatinine of 28 and 2.27. Urinalysis is remarkable for cloudy harshad appearance and macro was positive for protein, glucose, occult blood, nitrites and leukoesterase. Micro reveals greater than 100 RBCs, 10-25 WBCs with 2+ bacteria. Since patient has leukoesterase, nitrites, pyuria with 2+ bacteria which is new culture was sent and he received 1 g of Rocephin. Labs: Laboratory Results - last 24 hr 09/29/24 09/29/24 09/29/24 20:54 22:46 22:51 WBC 8.8 RBC 4.74 Hgb 14.9 Hct 44.3 MCV 93.5 MCH 31.4 MCHC 33.6 RDW Std Deviation 46.5 H RDW Coeff of Luther 13.5 Plt Count 220 MPV 11.3 Immature Gran % (Auto) 0.300 Neut % (Auto) 64.4 Lymph % (Auto) 18.7 L [place] % (Auto) 10.7 H Eos % (Auto) 5.2 H Baso % (Auto) 0.7 Absolute Neuts (auto) 5.7 Absolute Lymphs (auto) 1.64 Nucleated RBC % 0 Sodium 139 Potassium 4.9 Chloride 104 Carbon Dioxide 19.6 L Anion Gap 15 BUN 28 H Creatinine 2.27 H Estim Creat Clear Calc 29.35 L Est GFR (MDRD) Non-Af 29 L BUN/Creatinine Ratio 12.3 Glucose 114 H Calcium 9.2 Urine Color [place] Urine Clarity Cloudy Urine pH 6.0 Ur Specific [place] 1.020 Urine Protein 100 H Urine Glucose (UA) 1000 H Urine Ketones Negative Urine Occult Blood 250 H Urine Nitrite Positive H Urine Bilirubin Negative Urine Urobilinogen Normal Ur Leukocyte Esterase 100 H Urine RBC > 100 SEEN Urine WBC 10-25 SEEN Ur Squamous Epith Cells 5-10 SEEN Ur Transition Epith Cell 0-5 SEEN Urine Bacteria 2+ Urine Mucus 0 SEEN POC Glucose 102 Radiography Diagnostic Testing: Clinical Impression(s) from Imaging Studies Abdomen/Pelvis CT 09/29/24 21:22 IMPRESSION: 1. No significant interval change in the moderate left hydroureteronephrosis, with stent in unchanged position. Hyperdense contents within the left renal collecting system, ureter, and urinary bladder may represent delayed excretion of the contrast from the CT performed yesterday. Blood products could also appear similar. 2. Punctate focus of air within the urinary bladder could be the result of recent instrumentation, though emphysematous cystitis could appear similar. Reading Location: [id number] Treatment and Re-Evaluation :: Patient initially was treated with morphine. Recurrence of his pain. He is given additional dose of morphine. CT essentially is unchanged from prior film. Will discuss case with Dr. Conteh since he operated on him on September 25. Spoke with Dr. Conteh. He is scheduled to see the patient on . He removed his stent at that time. He will follow-up on the cultures. Requested cephalexin. Patient has oxycodone at home. He is instructed take the oxycodone every 4-6 hours for the pain. Discharge Plan Triage Chief Complaint: Flank Pain ED Provider: Wally Molina Dx/Rx/DC Orders Clinical Impression: Complicated urinary tract infection, Chronic kidney disease (CKD), Left flank pain, Hematuria, Status post laser lithotripsy of ureteral calculus, Hydronephrosis of left kidney Instructions: ED Bladder Infection, Male (Adult) Prescriptions: New cephalexin 500 mg capsule 500 mg PO Q8 Qty: 15 0RF No Action atorvastatin 40 MG tablet 40 mg PO QHS Patient Comments: cholesterol nitroglycerin 0.4 MG tablet 0.4 mg sublingual Q5M PRN (Reason: Chest Pain) Patient Comments: chest pain aspirin 81 MG tablet,chewable 81 mg PO DAILY Patient Comments: heart health levothyroxine [Levoxyl] 200 MCG tablet 200 mcg PO DAILY Patient Comments: thyroid sertraline 50 MG tablet 50 mg PO DAILY Ozempic 0.25 mg or 0.5 mg(2 mg/1.5 mL) Pen Injector 0.5 mg SUBCUT TH famotidine 10 mg Tablet 10 mg PO DAILY carbidopa-levodopa 25-100 mg tablet extended release 1 tab PO QHS multivitamin with iron Tablet 1 tab PO DAILY PreserVision AREDS-2 250-90-40-1 mg capsule 1 tab PO BID tamsulosin [Flomax] 0.4 mg capsule 0.8 mg PO QHS losartan 25 mg tablet 12.5 mg PO DAILY trospium 20 mg tablet 20 mg PO BID Rx Instructions: administer on an empty stomach clopidogrel 75 mg tablet 75 mg PO DAILY potassium chloride [Klor-Con 10] 10 mEq tablet extended release 10 meq PO DAILY insulin glargine [Lantus Solostar U-100 Insulin] 100 unit/mL (3 mL) insulin pen 30 unit subcut BID magnesium oxide 420 mg tablet 420 mg PO QHS empagliflozin 25 mg tablet 25 mg PO DAILY cholecalciferol (vitamin D3) 50 mcg (2,000 unit) tablet,chewable 2,000 unit PO DAILY trazodone 50 mg tablet 25 mg PO QHS PRN (Reason: sleep) furosemide 20 mg tablet 20 mg PO Q12H metoprolol tartrate 25 mg Tablet 50 mg PO Q12H oxycodone 5 mg tablet 5 mg PO Q6H PRN (Reason: pain) 7 Days Qty: 20 0RF ciprofloxacin HCl 500 mg tablet 500 mg PO BID Qty: 14 0RF Primary Care Provider: [facility] Referrals: Cory Conteh MD [Med Staff - Active Staff] - [facility] [place] [Primary Care Provider] - Activity Restrictions/Additional Instructions: 1. If you develop a temperature greater than 100 shaking chills, severe pain not controlled by your pain medication return to the emergency department 2. Take the antibiotic 3 times a day until gone 3. You may take one of your oxycodone tablets every 4-6 hours for pain. Recommend taking [id number] for the first day. Print Language: Kyrgyz Disposition Disposition: Home, Self Care
[2024-09-30] MEDS: Ceftriaxone 1 GM/50 ML BAG IV (00:18)
[2024-09-30 00:43] VITALS: BP 149/84; PULSE 86; RESP 16; TEMP 36.8; O2SAT 92
== END 2024-09-30 01:13 | disposition home or self-care (01) ==
PROVIDERS: Emergency Provider Emergency Medicine; Visit Provider Emergency Medicine
DX: N13.6 Pyonephrosis (principal); I13.0 Hypertensive heart and chronic kidney disease with heart failure and stage 1 through stage 4 chronic kidney disease, or unspecified chronic kidney disease; I50.33 Acute on chronic diastolic (congestive) heart failure; E11.22 Type 2 diabetes mellitus with diabetic chronic kidney disease; N18.9 Chronic kidney disease, unspecified; E78.2 Mixed hyperlipidemia; I25.10 Atherosclerotic heart disease of native coronary artery without angina pectoris; Z95.5 Presence of coronary angioplasty implant and graft; Z79.02 Long term (current) use of antithrombotics/antiplatelets; Z79.82 Long term (current) use of aspirin; Z79.85 Long-term (current) use of injectable non-insulin antidiabetic drugs; Z79.899 Other long term (current) drug therapy; Z86.16 Personal history of COVID-19; Z87.891 Personal history of nicotine dependence
CPT/HCPCS: 74176; 80048; 81001; 82962; 85025; 87086; 96361; 96365; 96375; 96376; 99283; A4216; J2405

== ENCOUNTER 2024-12-23 14:43 | Emergency (ER) | payer OTHER, SELFPAY ==
[2024-12-23 14:44] VITALS: BP 125/77; PULSE 92; RESP 17; TEMP 36.6; O2SAT 94; BMI 36.8
--- NOTE | 2024-12-23 14:52 | EKG12_ITS ---
Test Reason : FALL Blood Pressure : */* mmHG Vent. 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
--- NOTE | 2024-12-23 15:32 | EX.ED.GENINJ ---
HPI History of Present Illness Chief Complaint: Fall Detail of Chief Complaint: Patient presents because the retinal assistant women's rowing coach at the [facility] would Informant: patient and spouse/S.O. Onset/Context/Timing Onset: Days (Patient had a near fall hitting his head against a Bldg. 2 days ago. He presents because he needs evaluation) Mechanism/Context: Blunt Injury and Fall Location of pain/injuries: Right forearm Quality of Pain: - (Patient denies headache or any visual or neurologic symptoms. He does report anterior chest pain worse with movement) Location: Sternal region Current Severity: Mild Maximum Severity: Moderate Worsened by: Twisting Relieved by: Essentially resolved if he remains still Associated Symptoms Associated Symptoms: Negative for Parasthesias, Weakness, Loss of function, Inability to ambulate, Loss of consciousness or Amnesia Narrative Narrative: Patient is a 79-year-old male. He has macular degeneration. He was seen by the retina assistant women's rowing coach at the [facility] located in [place] this afternoon. The assistant women's rowing coach would not inject his eyes because he bumped his head and had chest pain. Patient presents for evaluation so he came receive the injection. There is a discrepancy tween what his and he believes. He believes he needs a CAT scan says he needs checked. He denies headache. Denies double vision, blurred vision loss of vision from baseline. Has ringing in ears or decreased hearing. No trouble with speech or swallowing. Denies any new paresthesia or anesthesia. He denies problems with using his arms or legs. He denies problems with coordination or balance or fine motor skills. He denies abdominal pain, nausea or vomiting. Patient is not on an anticoagulant he is on a antithrombotic. He is on Plavix because he has a stent. Prior similar symptoms: No Recent Illness/Hospitalization: No [facility] Medical History Former tobacco use History of COVID-19 History of DVT (deep vein thrombosis) Coronary artery disease Essential hypertension Tubular adenoma of colon Chronic diastolic heart failure ANABELL (obstructive sleep apnea) Insomnia Vitamin D deficiency Proteinuria BPH (benign prostatic hyperplasia) Restless leg syndrome Hypertensive heart disease with acute diastolic congestive heart failure Mixed hyperlipidemia Allergic rhinitis Diabetes Depression GERD (gastroesophageal reflux disease) Obesity Hypothyroid CHF (congestive heart failure) Hyperlipidemia Home Medications ?Medication ?Instructions ?Recorded ?Last Taken ?Type aspirin 81 mg chewable tablet 81 mg PO DAILY heart health 03/10/13 09/27/24 History atorvastatin 40 mg tablet 40 mg PO QHS cholesterol 03/10/13 09/27/24 History levothyroxine 200 mcg tablet 200 mcg PO DAILY thyroid 03/10/13 09/27/24 History (Levoxyl) nitroglycerin 0.4 mg sublingual 0.4 mg sublingual Q5M PRN Chest 03/10/13 05/02/18 History tablet Pain sertraline 50 mg tablet 50 mg PO DAILY mental health 04/14/15 09/27/24 History famotidine 10 mg tablet 10 mg PO DAILY reflux 02/18/21 09/27/24 History semaglutide 0.25 mg or 0.5 mg (2 0.5 mg subcut TH diabetes 02/18/21 09/24/24 History mg/1.5 mL) subcutaneous pen injector (Ozempic) carbidopa ER 25 mg-levodopa 100 mg 1 tab PO QHS tremors 04/14/24 09/27/24 History tablet,extended release multivitamin with iron 1 tab PO DAILY multivitamin 04/14/24 09/27/24 History vit C 250 mg-vit E 90 mg-zinc 40 1 tab PO BID vitamin 04/14/24 09/27/24 History mg-copper 1 [id number] capsule (PreserVision AREDS-2) clopidogrel 75 mg tablet 75 mg PO DAILY antiplatelet 09/23/24 09/27/24 History insulin glargine 100 unit/mL (3 30 unit subcut BID diabetes 09/23/24 09/27/24 History mL) subcutaneous pen (Lantus Solostar U-100 Insulin) losartan 25 mg tablet 12.5 mg PO DAILY htn 09/23/24 09/27/24 History potassium chloride 10 mEq 10 meq PO DAILY supplement 09/23/24 09/27/24 History tablet,extended release (Klor-Con) tamsulosin 0.4 mg capsule (Flomax) 0.8 mg PO QHS bladder 09/23/24 09/27/24 History trospium 20 mg tablet 20 mg PO BID antispasmodic 09/23/24 09/27/24 History cholecalciferol (vitamin D3) 50 2,000 unit PO DAILY 09/24/24 09/27/24 History mcg (2,000 unit) chewable tablet empagliflozin 25 mg tablet 25 mg PO DAILY 09/24/24 09/27/24 History furosemide 20 mg tablet 20 mg PO Q12H diuretic 09/24/24 09/27/24 History magnesium oxide 420 mg tablet 420 mg PO QHS supplement 09/24/24 09/27/24 History metoprolol tartrate 25 mg tablet 50 mg PO Q12H htn 09/24/24 09/27/24 History trazodone 50 mg tablet 25 mg PO QHS PRN sleep 09/24/24 09/27/24 History ciprofloxacin HCl 500 mg tablet 500 mg PO BID #14 tabs 09/25/24 09/27/24 Rx oxycodone 5 mg tablet 5 mg PO Q6H PRN pain 7 days #20 09/25/24 09/27/24 Rx tabs cephalexin 500 mg capsule 500 mg PO Q8 #15 CAPSULES 09/30/24 Unknown Rx Allergy/AdvReac Type Severity Reaction Status Date / Time Anesthetics - Amide Type - Allergy Other Verified 12/23/24 14:47 [facility] - [place] Type- Allergy Other Verified 12/23/24 14:47 Parabens albuterol AdvReac Mild thrush Verified 12/23/24 14:47 Family History Father CAD (coronary artery disease) Myocardial infarction Diabetes Heart disease Hypertension Brother Hypertension Diabetes Mother No problems noted. Surgical History History of ureter stent S/P thyroidectomy S/P arthroscopic knee surgery S/P hemorrhoidectomy Hx of elbow surgery S/P CABG x 4 S/P coronary artery stent placement Hx of mitral valve repair Social History household members: spouse Smoking Status: Former smoker quit date: 09/26/73 pack-years: 5 how long ago did patient quit smoking: Additional chew tobacco use history, quit 01/15/2007. alcohol intake: never substance use type: does not use ROS ROS ED Constitutional Constitutional ED: Denies chills or fever(s) Eyes Eyes: Denies blurry vision or change in vision ENT ENT ED: Denies ear pain, rhinorrhea or sore throat Cardiovascular Cardiovascular: Denies chest pain or palpitations Respiratory/Chest Respiratory/Chest: Denies cough, dyspnea or dyspnea on exertion Gastrointestinal Gastrointestinal: Denies abdominal pain, nausea or vomiting Genitourinary Genitourinary ED: Denies dysuria, hematuria or urinary frequency Musculoskeletal Musculoskeletal: Denies myalgias Integumentary Reports other Details: Bruises noted predominantly right forearm and distal right arm Neurologic Neurologic: Denies headache(s), paresthesias or weakness Psychiatric Psychiatric: Denies anxiety or depression Endocrine Endocrinology: Denies cold intolerance or heat intolerance Hematologic/Lymphatic Hematologic/Lymphatic: Reports easy bruising; Denies easy bleeding or lymphadenopathy EXAM Physical Exam Const Vital Signs: 12/23/24 14:44 12/23/24 15:28 12/23/24 15:55 Temperature 97.8 F Temperature Source Oral Pulse Rate 92 90 Respiratory Rate 17 16 Respiratory Effort Normal Non-Labored Respiratory Depth Normal Respiratory Pattern Normal Blood Pressure 125/77 H 126/76 H Blood Pressure Mean 93 92 Pulse Ox 94 96 Oxygen Delivery Method Room Air Room Air Room Air Positive well nourished and well developed General Appearance ED: well developed and NAD HEENT HEENT Narrative: Head is atraumatic and normocephalic. Ears are normal. Nares are patent. Posterior pharynx is normal. atraumatic; Negative for tenderness Eyes PERRL and EOMs intact bilaterally General Eye ED: Yes other Other Details: There is no subconjunctival hemorrhage. Neck full ROM General: Negative for tenderness Chest Wall palpation of chest normal Chest Narrative: Patient has pain with patient over the sternum near the right parasternal border. There is no crepitus or subcutaneous air. Resp normal respiratory effort and clear to auscultation bilaterally Cardio regular rhythm, S1 normal heart sound, S2 normal heart sound and no murmurs Rate: regular rate GI normal to inspection, nondistended, normoactive bowel sounds, non-tender, non-distended and no masses Extremity Extremity Narrative: Bruising right upper extremity. No point bony tenderness Neuro oriented x3, CN's II-XII intact bilaterally, moves all extremities, no focal motor deficits and no sensory deficits noted Bagley Coma Scale: document GCS findings Spontaneous Obeys Commands Oriented 15 Sensorium / Orientation: alert Deep Tendon Reflexes: Rt Triceps (C7): 2+, Lt Triceps (C7): 2+, Rt Biceps (C5, C6): 2+, Lt Biceps (C5, C6): 2+, Rt Brachioradialis (C6): 2+, Lt Brachioradialis (C6): 2+, Rt Patellar (L4): 2+, Lt Patellar (L4): 2+, Rt Ankle (S1): 2+ and Lt Ankle (S1): 2+ Deep Tendon Reflexes Back: Rt Patellar (L4): 2+, Lt Patellar (L4): 2+, Rt Ankle (S1): 2+ and Lt Ankle (S1): 2+ Plantar Reflex: Downgoing: bilateral (There is no clonus at the ankles.) Psych mental status grossly normal and thought process normal Skin no rashes or lesions noted and no jaundice Skin Narrative: Bruising as previously noted under the extremity portion of the EMR MDM MDM MDM Narrative Medical decision making narrative: With no evidence of trauma the fact that it is 2 days since the trauma and trauma was minimal with a normal neurologic exam and no complaint of headache or neurologic symptoms in my professional opinion patient does not need a CAT scan of the head. Attempts were made at contacting the retinal assistant women's rowing coach at the [facility]. I was informed by the trade union secretary that they had called left. She will have a general milling superintendent review his records to determine if he truly does or does not need a CAT scan prior to receiving therapy for his macular degeneration. Since he does have point chest tenderness will obtain chest x-ray to evaluate for fracture, pneumothorax and contusion. In my opinion no other imaging or laboratory testing needed. History & Record Review Discussion w/independent historian: Significant other Additional record(s) reviewed:: Other (Contacted [facility] to clarify if patient does or does not need a CAT scan.) Radiography Chest X-Ray - ED: 2 View, Read by ED Physician, Mediastinum, Bony Structures, No Acute Disease, Chronic Changes and - (The hilum is not widened. The sternotomy wires are noted to be intact. The inspiratory volume is suboptimal.) Diagnostic Testing: Clinical Impression(s) from Imaging Studies Chest X-Ray 12/23/24 15:37 IMPRESSION: Cardiac enlargement. Tortuous, atherosclerotic aorta. Reading Location: [facility] EKG Initial EKG: Attestation: I personally reviewed and interpreted this EKG as follows: (EKG was obtained per nurse protocol.) Interpretation: Sinus Rhythm (Normal sinus rhythm rate 91. WI interval 186 ms previous duration 92 ms. QT duration 292 ms. [place] is normal. QT CB is prolonged at 482. There is no acute ischemic changes noted.) Treatment and Re-Evaluation Narrative: [facility] and were informed of chest x-ray results. Patient was informed because he has no neurosymptoms no complaint of headache and a normal neurologic exam and the fact that this happened over 48 hours ago without evidence of head trauma imaging is not warranted. He is willing and excepts that if I write on his discharge home-going instructions he is cleared that this should be sufficient. He and his are both satisfied with my explanation of why a CT was not at ordered and solution. Discharge Plan Triage Chief Complaint: Fall ED Provider: Wally Molina Dx/Rx/DC Orders Clinical Impression: Musculoskeletal chest pain, Contusion of right forearm, initial encounter, Antiplatelet or antithrombotic long-term use, Elevated blood pressure reading with diagnosis of hypertension, Chronic kidney disease (CKD) Instructions: ED Chest Pain, Noncardiac Prescriptions: No Action atorvastatin 40 MG tablet 40 mg PO QHS Patient Comments: cholesterol nitroglycerin 0.4 MG tablet 0.4 mg sublingual Q5M PRN (Reason: Chest Pain) Patient Comments: chest pain aspirin 81 MG tablet,chewable 81 mg PO DAILY Patient Comments: heart health levothyroxine [Levoxyl] 200 MCG tablet 200 mcg PO DAILY Patient Comments: thyroid sertraline 50 MG tablet 50 mg PO DAILY Ozempic 0.25 mg or 0.5 mg(2 mg/1.5 mL) Pen Injector 0.5 mg SUBCUT TH famotidine 10 mg Tablet 10 mg PO DAILY carbidopa-levodopa 25-100 mg tablet extended release 1 tab PO QHS multivitamin with iron Tablet 1 tab PO DAILY PreserVision AREDS-2 250-90-40-1 mg capsule 1 tab PO BID tamsulosin [Flomax] 0.4 mg capsule 0.8 mg PO QHS losartan 25 mg tablet 12.5 mg PO DAILY trospium 20 mg tablet 20 mg PO BID Rx Instructions: administer on an empty stomach clopidogrel 75 mg tablet 75 mg PO DAILY potassium chloride [Klor-Con 10] 10 mEq tablet extended release 10 meq PO DAILY insulin glargine [Lantus Solostar U-100 Insulin] 100 unit/mL (3 mL) insulin pen 30 unit subcut BID magnesium oxide 420 mg tablet 420 mg PO QHS empagliflozin 25 mg tablet 25 mg PO DAILY cholecalciferol (vitamin D3) 50 mcg (2,000 unit) tablet,chewable 2,000 unit PO DAILY trazodone 50 mg tablet 25 mg PO QHS PRN (Reason: sleep) furosemide 20 mg tablet 20 mg PO Q12H metoprolol tartrate 25 mg Tablet 50 mg PO Q12H oxycodone 5 mg tablet 5 mg PO Q6H PRN (Reason: pain) 7 Days Qty: 20 0RF ciprofloxacin HCl 500 mg tablet 500 mg PO BID Qty: 14 0RF cephalexin 500 mg capsule 500 mg PO Q8 Qty: 15 0RF [facility] [Primary Care Provider, None] Activity Restrictions/Additional Instructions: In my professional opinion with no evidence of head trauma, no complaint of headache, no neurologic symptoms and a GCS of 15 with a normal neurologic exam imaging is not indicated especially since the minor trauma that occurred greater than 48 hours ago there is no indication for advanced imaging. Print Language: Polish Disposition Disposition: Home, Self Care
--- NOTE | 2024-12-23 15:37 | RAD_ITS ---
PROCEDURE: CHEST PA AND LATERAL 12/23/2024 REASON FOR EXAM: CHEST PAIN DUE TO TRAUMA TECHNIQUE: Procedure Code: RADCXR Modality: DX Procedure: CHEST PA AND LATERAL COMPARISON: May 19, 2021 FINDINGS: Hardware: Prior median sternotomy Heart: Enlarged Mediastinum: Aorta is tortuous and atherosclerotic. Lungs: No consolidation. No pleural effusion or pneumothorax. Mild scarring in the periphery of the right mid and lower lung and adjacent to the diaphragm. Bones: Degenerative changes are identified within the thoracic spine. RAD/Chest PA and Lateral IMPRESSION: Cardiac enlargement. Tortuous, atherosclerotic aorta. Reading Location: [id number]
[2024-12-23 15:55] VITALS: BP 126/76; PULSE 90; RESP 16; O2SAT 96
[2024-12-23 16:30] VITALS: BP 126/76; PULSE 90; RESP 16; TEMP 36.7; O2SAT 96
--- OUTSIDE RECORDS SUMMARY | 2024-12-23 21:24 | XMS RPT_ITS | CCD ---
Author Organization [facility] [place] Care Team Providers Care Switch Operators Supervisor Name Role Phone GHANSHYAM, BIA Unavailable Unavailable [facility] Unavailable Unavailable GHANSHYAM, BIA Unavailable Unavailable GHANSHYAM, BIA Unavailable Unavailable GHANSHYAM, BIA Unavailable Unavailable GHANSHYAM, BIA Unavailable Unavailable NIKIA ADAIR Unavailable Unavailable GHANSHYAM, BIA Unavailable Unavailable GHANSHYAM, BIA Unavailable Unavailable NIKIA ADAIR Unavailable Unavailable Nikia Adair MD Primary Care Provider Shyam ELAM MD, Lylaung Unavailable Shyam ELAM MD, Lylaung Unavailable Nikia Adair MD Primary Care Provider Shyam ELAM MD, Daesung Unavailable Shyam ELAM MD, Daesung Unavailable Nikia Adair MD Primary Care Provider Shyam ELAM MD, Daesung Unavailable Shyam ELAM MD, Daesung Unavailable [facility] Primary Care Provider Shyam ELAM, Lylaung Unavailable Will Howe MDesung Unavailable [facility] Primary Care Provider SRIRAM VALLES Referring Unavailable SRIRAM VALLES Attending Unavailable ESSIE ARRIETA MD Attending Unavailable ESSIE ARRIETA MD Primary Care Unavailable ESSIE ARRIETA MD Admitting Unavailable Dr. Kobi Adair MD Primary Care Provider Dr. Marco Antonio Vazquez DO Emergency Provider Wero ELAM, Dr. Cory Forte Admit Provider [phone] Wero ELAM, Dr. Cory Forte Attending Provider Giovany ELAM, Dr. Peace Primary Care Provider Dr. Marco Antonio Vazquez DO Emergency Provider Wero ELAM, Dr. Cory Forte Admit Provider Wero ELAM, Dr. Cory Forte Attending Provider Dr. Darwin Kruger DO Emergency Provider [facility] [place] Primary Care Provider Unavailjose Molina MD, Dr. Lo Emergency Provider Toshia Pro Attending Unavailable Giovany, Kobi Primary Care Unavailable White, Liliane L Consulting Unavailable White, Liliane L Admitting Unavailable Toshia Pro Consulting Unavailable Kobi Adair Referring Unavailable Janes Patel Attending Unavailable Giovany, [facility] Primary Care Unavailable Giovany, Kobi Primary Care Unavailable Edu Dodson Attending Unavailable Giovany, [facility] Primary Care Unavailable Edu Dodson Attending Unavailable Cory Conteh Referring Unavailable Wally Molina Attending Unavailable [facility] [place] [facility] [place] [facility] [place] [facility] Unavailable Darwin Kruger Attending Unavailable Giovany, [facility] Primary Care Unavailable WeroCory Admitting Unavailable WeroCory moore Attending Unavailable Giovany, Kobi Primary Care Unavailable Toshia Pro Attending Unavailable White, Liliane L Admitting Unavailable White, Liliane L Consulting Unavailable White, Liliane L Attending Unavailable [facility] Primary Care Provider [phone] SRIRAM VALLES Attending Unavailable Giovany ELAM, Dr. Peace Primary Care Physicia n Dr. Marco Antonio Vazquez DO Emergency Department Physi bell Wero ELAM, Dr. Cory Forte Admitting Physician Wero ELAM, Dr. Cory Forte Attending Physician [place] ELAM, Dr. Sorensen Attending Physician Wero ELAM, Dr. Cory Forte Referring Provider Dr. Darwin Kruger DO Attending Physician Dr. Darwin Kruger DO Emergency Department Physic [facility] [place] [place] Primary Care Physician Vaughn Horne MD, Dr. Lo Attending Physician Jesse ELAM, Dr. Lo Emergency Department Physician Allergies Allergy Classification Reported Allergen(s) Allergy Type Date of Onset Reaction(s) Facility (7 sources) albuterol; Translations: [ALBUTEROL] Drug Allergy 5 Pending sale to [facility] Repository Comment on above: THRUSH (20 sources) lovastatin; Translations: [LOVASTATIN] Drug Allergy [address] [facility] Repository (20 sources) INHALED ANESTHETICS (HALOGEN BASED); Translations: [INHALED ANESTHETICS (HALOGEN BASED)] Propensity to adverse reactions (disorder) [address] [facility] Repository (5 sources) Anesthetics - Amide Type - Select A Allergy to substance 5 [facility] Comment on above: FAMILY HX OF MALIGNA NT HYPERTHERMIA WHEN HAD BYPASS - WENT INTO COMA FOR 21 DAYS WHEN HAD THYROID REMOVED BY DR MC AT [facility] CRASHED BP DROPPED AND HAD TO ABORT OPERATION 1ST TIME AROUND UNSURE OF WHICH ANESTHESIA IT WAS (5 sources) Anesthetics - Rivka Type- Parabens Allergy to substance 5 [facility] Comment on above: FAMILY HX OF MALIGNA NT HYPERTHERMIA WHEN HAD BYPASS - WENT INTO COMA FOR 21 DAYS WHEN HAD THYROID REMOVED BY DR MC AT [facility] CRASHED BP DROPPED AND HAD TO ABORT OPERATION 1ST TIME AROUND UNSURE OF WHICH ANESTHESIA IT WAS (1 source) Anesthetics - Amide Type - Select A Drug allergy (disorder) 5 [facility] Repository (1 source) Anesthetics - Rivka Type- Parabens Drug allergy (disorder) 5 [facility] Repository Medications Current Medications Medication Drug Class(es) Dates Sig (Normalized) Sig (Original) aspirin 81 mg chewable tablet (20 sources) Platelet Aggregation Inhibitor, Nonsteroidal Anti-inflammatory Drug Start: 03-10-2013 take 1 tablet by mouth once daily Start: 08-05-2007 aspirin(ECOTRI N LOW STRENGTH 81 MG TAB) 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 0 0 08/05/2007 Active Comment on above: Take one(1) tablet d aily. atorvastatin 80 mg oral tablet (20 sources) HMG-CoA Reductase Inhibitor Start: 1 End: 5 take 0.5 tablet by mouth once daily atorvastatin (LIPITOR) 80 mg tablet Take 0.5 tablets by mouth once daily. ID # [id number] 90 tablet 12/02/2024 Active Start: 03-10-2013 take 1 tablet by mouth at bedt davin Comment on above: Take 0.5 tablets by mouth once daily. ID # [id number] carbidopa 25 mg / levodopa 100 mg extended release oral tablet (20 sources) Aromatic Amino Acid Decarboxylation Inhibitor, Aromatic Amino Acid Start: 08-12-2014 take 1 tablet by mouth every twenty-four hours as needed carbidopa-levodo pa (SINEMET) 25-100 mg per tablet Take 1 tablet by mouth at bedtime as needed. ID # [id number] 90 tablet 3 08/12/2014 Active Start: 03-10-2013 End: 04-14-2024 Comment on above: Take 1 tablet by radha th at bedtime as needed. ID # [id number] cephalexin 500 mg oral capsule (2 sources) Cephalosporin Antibacterial Start: 09-30-2024 take 1 capsule by mouth every eight hours cholecalciferol 0.05 mg chewable tablet (16 sources) Vitamin D Start: 09-24-2024 take 1 tablet by mouth once daily Start: 09-08-2021 End: 10-28-2023 take 2 capsules by mouth once daily Cholecalciferol, Vitamin D3, 25 mcg (1,000 unit) cap Take 2 capsules by mouth once daily. 0 09/08/2021 10/28/2023 Discontinued (Course of therapy completed) Comment on above: Take 2 capsules by m outh once daily. ciprofloxacin 500 mg oral tablet (4 sources) Quinolone Antimicrobial Start: 5 take 1 tablet by mouth twice daily clopidogrel 75 mg oral tablet (20 sources) P2Y12 Platelet Inhibitor Start: 1 take 1 tablet by mouth once daily Comment on above: Take 1 tablet by radha th once daily. CPAP (20 sources) Start: 6 CPAP Indications: ANABELL (obstructive sleep apnea) CHIN STRAP with [...] Please fax 30 day compliance download to [phone]. Dx: ANABELL, treatment emergent CSA 1 Device 0 05/17/2015 Active Comment on above: Pressure change: Cordell evel PAP 19/15 cmH2O. Please fax 30 day compliance download to [phone]. Dx: ANABELL, treatment emergent CSA Please dispense a fu ll face mask for PAP therapy. He liked medium Kristine View full face mask during titration study. Dx ANABELL CHIN STRAP with mask refit optimization, USED WITH CPAP DEVICE empagliflozin 25 mg oral tablet (4 sources) Sodium-Glucose Cotransporter 2 Inhibitor Start: 09-24-2024 take 1 tablet by mouth once daily famotidine 10 mg oral tablet (20 sources) Histamine-2 Receptor Antagonist Start: 02-18-2021 take 1 tablet by mouth once daily Start: 11-21-2020 take 1 tablet by radha th twice daily famotidine (PEPCID) 10 mg tablet Take 1 tablet by mouth twice daily. 180 tablet 11/21/2020 Active Comment on above: Take 1 tablet by radha th twice daily. furosemide 20 mg oral tablet (20 sources) Loop Diuretic Start: 09-24-2024 take 1 tablet by mouth every twelve hours Start: 02-18-2021 End: 04-17-2024 Furosemide 20 mg tablet Disc ontinued 20 mg PO .BIDLX February 18, 2021 1:00am April 17, 2024 5:18pm diuretic Start: 02-18-2021 End: 09-24-2024 take 1 tablet by mouth once daily Furosemide 20 mg tablet Discontinued 20 mg PO DAILY 30 0 April 17, 2024 5:18pm September 24, 2024 10:30am diuretic Start: 11-21-2020 End: 12-02-2024 take 1 tablet by mouth twice daily furosemide (LASIX) 20 mg tablet Indications: DORANTES (dyspnea on exertion) Take 1 tablet by mouth two times a day. 180 tablet 12/02/2024 Active Start: 03-10-2013 End: 04-30-2013 Furosemide 40 MG tablet Disc ontinued 20 mg PO DAILY March 10, 2013 1:00am April 30, 2013 3:28pm Comment on above: Take 1 tablet by radha th twice daily. 3 ml insulin glargine 100 un t/ml pen injector (20 sources) Insulin Analog Start: 09-23-2024 Start: 09-23-2024 Insulin Glargi ne (Lantus Solostar U-100 Insulin) 100 unit/mL (3 mL) insulin pen Active 30 U SC DAILY September 23, 2024 12:00am Start: 04-17-2024 End: 09-23-2024 Insulin Glargine (Lantus June ostar U-100 Insulin) 100 unit/mL (3 mL) insulin pen Discontinued 40 U SC DAILY 30 0 April 17, 2024 5:18pm September 23, 2024 [...] directed insulin lispro 100 unt/ml injectable solution (17 sources) Insulin Analog Start: 022 inject 22 [IU] by subcutaneous injection at [...] Take 22 units subcut aneously with dinner levothyroxine sodium 0.025 mg oral tablet (20 sources) l-Thyroxine Start: 021 take 1 tablet by mouth once daily for thyroid dysfunction levothyroxine (SYNTHROID) 25 mcg tablet Indications: Hypothyroidism, acquired Take 1 tablet by mouth once daily. Take on empty stomach. For thyroid. 30 tablet 2 03/16/2021 Active Start: 03-10-2013 take 1 tablet by mouth once da dorian Comment on above: Take one tablet magdaleno y. Take 1 tablet by radha th once daily. Take on empty stomach. For thyroid. losartan potassium 25 mg ora l tablet (20 sources) Angiotensin 2 Receptor Danica Start: 09-23-2024 Start: 06-17-2020 End: 12-02-2024 take 1 tablet by mouth once daily losartan (COZAAR) 100 mg tablet Take 1 tablet by mouth once daily. ID # [id number] 30 tablet 5 12/02/2024 Active Start: 03-10-2013 End: 04-17-2024 take 1 tablet by mouth once daily Losartan 50 MG tablet Discontinued 50 mg PO DAILY March 10, 2013 1:00am April 17, 2024 5:16pm blood pressure Comment on above: Take 1 tablet by radha th once daily. ID # [id number] metoprolol tartrate 25 mg oral tablet (20 sources) beta-Adrenergic Danica Start: 09-24-2024 take 2 tablets by mouth every twelve hours Start: 04-17-2024 End: 09-24-2024 Metoprolol Tartrate 25 mg Ta blet Discontinued 12.5 mg PO TWICE A DAY 30 30 0 April 17, 2024 1:00am September 24, 2024 10:30am htn Start: 12-14-2020 End: 12-02-2024 metoprolol tartrate, short a cting, (LOPRESSOR) 50 mg tablet Indications: Essential hypertension Take 2 tablets in AM and 1.5 tablets in the evening 90 tablet 1 12/02/2024 Active Start: 03-10-2013 End: 04-17-2024 take 1 tablet by mouth once daily Metoprolol Tartrate 50 MG tablet Discontinued 50 mg PO DAILY March 10, 2013 1:00am April 17, 2024 5:16pm blood pressure Comment on above: Take 2 tablets in AM and 1.5 tablets in the evening Multivitamin With Iron table t (5 sources) Start: 04-14-2024 Start: 04-14-2024 Multivitamin W ith Iron tablet Active 1 {tbl} PO DAILY April 14, 2024 1:00am nitroglycerin 0.4 mg sublingual tablet (20 sources) Nitrate Vasodilator Start: 03-10-2013 End: 12-02-2024 Comment on above: Dissolve 1 tablet un emmanuel the tongue as needed. FOR CHEST PAIN. IF NO RELIEF CALL 911 oxyCODONE hydrochloride 5 mg oral tablet (9 sources) Opioid Agonist Start: 09-25-2024 take 1 tablet by mouth every six hours as needed for pain Start: 04-17-2024 End: 05-01-2024 take 1 tablet by mouth every four hours as needed Oxycodone 5 mg Tablet Discontinued 5 mg PO EVERY 4 HOURS NEEDED as needed for MODSEVPAIN 15 3 0 April 17, 2024 May 01, 2024 10:47am Fracture Of Greater Trochanter perflutren lipid microsphere s 1.3 mL in NaCl (PF) 0.9% 10 mL injection (DEFINITY) (12 sources) Start: 05-14-2022 End: 08-13-2023 perflutren lipid microsphere s 1.3 mL in NaCl (PF) 0.9% 10 mL injection (DEFINITY) Start: 11-14-2020 End: 02-13-2022 perflutren lipid microsphere s 1.3 mL in NaCl (PF) 0.9% 10 mL injection (DEFINITY) potassium chloride 10 meq ex tended release oral tablet (20 sources) Start: 09-23-2024 Start: 07-08-2015 take 1 tablet by radha th once daily potassium chloride ER (K-DUR, KLOR-CON) 10 mEq tablet Indications: DORANTES (dyspnea on exertion) Take 1 tablet by mouth once daily. 30 tablet 1 07/08/2015 Active Comment on above: Take 1 tablet by radha th once daily. 0.25 mg, 0.5 mg dose 1.5 ml semaglutide 1.34 mg/ml pen injector (20 sources) Start: 05-29-2021 semaglutide (OZEMPIC) 0.25 mg or 0.5 mg(2 mg/1.5 mL) pen injector Inject 1 mg weekly every Thrusday 1 Each 5 05/29/2021 Active Start: 02-18-2021 Comment on above: Inject 1 mg weekly e very Thrusday sertraline 50 mg oral tablet (20 sources) Serotonin Reuptake Inhibitor Start: 02-02-2015 take 1 tablet by mouth once daily Comment on above: Take 1 tablet by radha once daily. 125 ml sodium chloride 9 mg/ml prefilled syringe (12 sources) Start: 05-14-2022 End: 08-13-2023 sodium chloride 0.9 % (flush) 10 mL (BD POSIFLUSH) Start: 11-14-2020 End: 02-13-2022 sodium chloride 0.9 % (flush ) 10 mL (BD POSIFLUSH) tamsulosin hydrochloride 0.4 mg oral capsule (20 sources) alpha-Adrenergic Danica Start: 08-07-2018 take 2 capsules by mouth at bedtime Comment on above: Take 2 capsules by out daily at bedtime. traZODone hydrochloride 50 mg oral tablet (4 sources) Serotonin Reuptake Inhibitor Start: 09-24-2024 trospium chloride 20 mg oral tablet (20 sources) Cholinergic Muscarinic Antagonist Start: 09-23-2024 take 1 tablet by mouth twice daily Start: 08-29-2019 End: 05-01-2024 take 1 tablet by mouth twice daily Trospium 20 mg Tablet Discontinued 20 mg PO TWICE A DAY February 18, 2021 1:00am May 01, 2024 10:53am bladder Comment on above: Take 1 tablet by radha th twice daily. Vit C,Q-Mq-Pofln-Lutein-Megan dianne (Preservision Areds-2) 250-90-40-1 mg capsule (5 sources) Start: 04-14-2024 take 2 capsules by mouth twice daily Start: 04-14-2024 take 2 capsules by m outh twice daily Vit C,Q-Sb-Arqoz-Lutein-Zeaxan (Preservision Areds-2) 250-90-40-1 mg capsule Active 1 {tbl} PO TWICE A DAY April 14, 2024 1:00am Completed/Discontinued Medications Medication Drug Class(es) Dates Sig (Normalized) Sig (Original) amLODIPine 5 mg oral tablet (5 sources) Dihydropyridine Calcium Channel Danica Start: 05-01-2024 End: 09-24-2024 take 1 tablet by mouth once daily Amlodipine 5 mg tablet Discontinued 5 mg PO daily May 01, 2024 1:00am September 24, 2024 10:29am benzonatate 100 mg oral capsule (5 sources) Non-narcotic Antitussive Start: 05-03-2018 End: 03-01-2021 take 2 capsules by mouth three times daily as needed for cough Benzonatate 100 MG capsule Discontinued 200 mg PO 3 TIMES DAILY NEEDED as needed for Cough 20 May 03, 2018 1:00am March 01, 2021 12:15pm docusate sodium 50 mg / sennosides, alf 8.6 mg oral tablet (5 sources) Start: 04-17-2024 End: 05-01-2024 Sennosides-Docusat e Sodium (Stimulant Laxative Plus) 8.6-50 mg Tablet Discontinued 2 {tbl} PO TWICE A DAY 120 30 0 April 17, 2024 1:00am May 01, 2024 10:53am 0.4 ml enoxaparin sodium 100 mg/ml prefilled syringe (5 sources) Low Molecular Weight Heparin Start: 04-17-2024 End: 09-23-2024 Enoxaparin 40 mg/0.4 mL Syringe Discontinued 40 mg SC DAILY 12 30 April 17, 2024 1:00am September 23, 2024 8:21pm 3 ml insulin aspart, human 100 unt/ml pen injector (5 sources) Insulin Analog Start: 09-23-2024 End: 09-28-2024 Insulin Aspart U-100 (Novolog Flexpen U-100 Insulin) 100 unit/mL (3 mL) insulin pen Discontinued 8 U SC EVERY EVENING September 23, 2024 12:00am September 28, 2024 9:43am diabetes Insulin Glargine 100 unit/mL Cartridge (5 sources) Start: 02-18-2021 End: 04-14-2024 Insulin Glargine 100 unit/mL Cartridge Discontinued 45 U SC DAILY February 18, 2021 1:00am April 14, 2024 2:59pm diabetes Start: 02-18-2021 End: 04-14-2024 Insulin Glargine 100 unit/mL Cartridge Discontinued 45 U SC DAILY February 18, 2021 1:00am April 14, 2024 2:59pm 24 hr isosorbide mononitrate 30 mg extended release oral tablet (20 sources) Nitrate Vasodilator Start: 03-10-2013 End: 09-23-2024 take 1 tablet by mouth once daily Isosorbide Mononitrate 30 MG tablet Discontinued 30 mg PO DAILY March 10, 2013 1:00am September 23, 2024 8:23pm heart Comment on above: Take 30 mg by mouth once daily. levoFLOXacin 500 mg oral tablet (5 sources) Quinolone Antimicrobial Start: 02-18-2021 End: 03-01-2021 take 1 tablet by mouth once daily Levofloxacin 500 mg tablet Discontinued 500 mg PO DAILY February 18, 2021 1:00am March 01, 2021 12:15pm magnesium oxide 400 mg oral tablet (20 sources) Start: 02-18-2021 End: 05-01-2024 take 1 tablet by mouth once daily Magnesium Oxide 400 MG tablet Discontinued 400 mg PO DAILY February 18, 2021 9:06pm May 01, 2024 10:53am supplement Start: 02-19-2018 take 1 tablet by radha th at bedtime Start: 05-15-2013 End: 02-18-2021 take 2 tablets by mouth twice daily in the morning Magnesium Oxide 400 MG tablet Discontinued 400 mg PO TWICE A DAY 90 0 May 15, 2013 1:00am February 18, 2021 9:06pm Take 2 tablets in the morning of 400 mg to equal 800 mg in the morning Take one tablet in the evening of 400 mg Comment on above: Take one tablet by m outh once daily Major Allergy (5 sources) Start: 03-10-2013 End: 04-28-2013 take 10 mg [...] bled into CPAP Multivitamin With Iron-Mineral Tablet (5 sources) Start: 02-18-2021 End: 04-14-2024 Multivitamin With Iron-Mineral Tablet Discontinued 1 {tbl} PO DAILY February 18, 2021 1:00am April 14, 2024 3:02pm vitamin Start: 02-18-2021 End: 04-14-2024 Multivitamin With Iron-Employment Manager al Tablet Discontinued 1 {tbl} PO DAILY February 18, 2021 1:00am April 14, 2024 3:02pm 24 hr oxybutynin chloride 10 mg extended release oral tablet (5 sources) Cholinergic Muscarinic Antagonist Start: 05-01-2024 End: 09-23-2024 take 1 tablet by mouth once daily Oxybutynin Chloride 10 mg tablet extended release 24hr Discontinued 10 mg PO daily May 01, 2024 1:00am September 23, 2024 8:22pm predniSONE 50 mg oral tablet (5 sources) Start: 02-18-2021 End: 03-01-2021 take 1 tablet by mouth once daily Prednisone 50 mg tablet Discontinued 50 mg PO DAILY February 18, 2021 1:00am March 01, 2021 12:17pm SITagliptin 100 mg oral tablet (5 sources) Dipeptidyl Peptidase 4 Inhibitor Start: 04-14-2015 End: 04-15-2024 take 1 tablet by mouth once daily Sitagliptin Phosphate (Januvia) 100 MG tablet Discontinued 100 mg PO DAILY April 14, 2015 1:00am April 15, 2024 12:23pm diabetes venlafaxine 37.5 mg oral tablet (5 sources) Serotonin and Norepinephrine Reuptake Inhibitor Start: 03-10-2013 End: 05-13-2013 Venlafaxine 37.5 MG tablet Discontinued 1 {tbl} PO TWICE A DAY March 10, 2013 1:00am May 13, 2013 6:01pm Problems Active Problems Problem Classification Problem Date Documented Date Episodic/Chronic Abdominal pain (7 sources) Left flank pain; Translations: [Unspecified abdominal pain] Onset: 10-05-2024 09-28-2024 Episodic Acute and unspecified renal failure (5 sources) Acute renal failure syndrome; Translations: [Acute kidney failure, unspecified] 03-09-2021 Episodic Calculus of urinary tract (8 sources) Ureteric stone; Translations: [Calculus of ureter] 09-24-2024 Episodic Chronic kidney disease (9 sources) Chronic kidney disease; Translations: [Chronic kidney disease, unspecified] 04-14-2024 Chronic Chronic kidney disease (1 source) Chronic kidney disease; Translations: [Chronic kidney disease, stage 3 unspecified] Onset: 04-20-2024 Complications of surgical procedures or medical care (17 sources) Postoperative hypothyroidism; Translations: [Postprocedural hypothyroidism] Onset: 04-09-2008 04-03-2021 Chronic Congestive heart failure; nonhypertensive (20 sources) Chronic diastolic heart failure; Translations: [Chronic diastolic (congestive) heart failure] Onset: 02-09-2019 02-09-2019 Chronic Coronary atherosclerosis and other heart disease (20 sources) Coronary arteriosclerosis; Translations: [Atherosclerotic heart disease of [place] coronary artery without angina pectoris] Onset: 09-01-2010 Resolved: 11-15-2020 08-07-2019 Chronic Coronary atherosclerosis and other heart disease (6 sources) Drug coated stent in anterior descending branch of left coronary artery; Translations: [Presence of coronary angioplasty implant and graft] Onset: 11-19-2011 Resolved: 10-28-2013 10-28-2013 Episodic Diabetes mellitus with complications (20 sources) Type 2 diabetes mellitus; Translations: [Type 2 diabetes mellitus with diabetic polyneuropathy] Onset: 07-28-2007 11-15-2020 Chronic Disorders of lipid metabolism (20 sources) Mixed hyperlipidemia; Translations: [Mixed hyperlipidemia] Onset: 08-10-2005 04-03-2021 Chronic Esophageal disorders (20 sources) Gastroesophageal reflux disease; Translations: [Gastro-esophageal reflux disease without esophagitis] Onset: 08-10-2005 04-03-2021 Chronic Essential hypertension (20 sources) Essential (primary) hypertension; Translations: [Essential hypertension] Onset: 08-20-2017 08-07-2019 Chronic Fracture of neck of femur (hip) (7 sources) Fracture of greater trochanter; Translations: [Displaced fracture of greater trochanter of unspecified femur, initial encounter for closed fracture] Onset: 04-18-2024 05-01-2024 Episodic Genitourinary symptoms and ill-defined conditions (20 sources) Proteinuria; Translations: [Proteinuria, unspecified] Onset: 12-18-2010 Resolved: 10-28-2013 01-11-2014 Episodic Heart valve disorders (1 source) Mitral valve disorder; 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, unspecified] 10-28-2023 Chronic Hyperplasia of prostate (17 sources) Benign prostatic hyperplasia; Translations: [Benign prostatic hyperplasia without lower urinary tract symptoms] Onset: 12-18-2010 12-18-2010 Chronic Hypertension with complications and secondary hypertension (20 sources) Hypertensive heart disease with congestive heart failure; Translations: [Hypertensive heart disease with heart failure] Onset: 01-23-2008 11-15-2020 Chronic Mood disorders (20 sources) Recurrent major depression in partial remission; Translations: [Major depressive disorder, recurrent, in partial remission] Onset: 06-21-2010 Resolved: 10-28-2013 11-15-2020 Chronic Mycoses (1 source) Onychomycosis; Translations: [Tinea unguium] Episodic Nonspecific chest pain (6 sources) Chest pain; Translations: [Chest pain, unspecified] 05-28-2021 Episodic Nutritional deficiencies (18 sources) Vitamin D deficiency; Translations: [Vitamin D deficiency, unspecified] Onset: 01-21-2012 04-26-2014 Chronic Other aftercare (1 source) Long-term current use of drug therapy; Translations: [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 antithrombotics/antipl atelets] 12-23-2024 Episodic Other connective tissue disease (1 source) Pain of toe of left foot; Translations: [Pain in left toe(s)] Episodic Other connective tissue disease (1 source) Pain of toe of right foot; Translations: [Pain in right toe(s)] Episodic Other diseases of kidney and ureters (2 sources) Hydronephrosis; Translations: [Unspecified hydronephrosis] 09-30-2024 Episodic Other diseases of kidney and ureters (1 source) Hydronephrosis with renal and ureteral calculous obstruction; Translations: [Hydronephrosis with renal and ureteral calculous obstruction] Onset: 10-23-2024 Episodic Other hereditary and degenerative nervous system conditions (20 sources) Restless legs; Translations: [Restless legs syndrome] Onset: 08-09-2010 Resolved: 05-22-2013 04-03-2013 Chronic Other liver diseases (1 source) Alkaline phosphatase raised; Translations: [Abnormal levels of other serum enzymes] Episodic Other lower respiratory disease (2 sources) Multiple nodules of lung; Translations: [Other nonspecific abnormal finding of lung field] Episodic Other lower respiratory disease (1 source) Dyspnea; Translations: [Shortness of breath] Episodic Other lower respiratory disease (2 sources) Dyspnea on exertion; Translations: [Other forms of dyspnea] 12-02-2024 Episodic Other lower respiratory disease (1 source) Other forms of dyspnea; Translations: [DORANTES (dyspnea on exertion)] Onset: 12-02-2024 Episodic Other nervous system disorders (9 sources) Unable to walk; Translations: [Difficulty in walking, not elsewhere classified] 04-14-2024 Chronic Other non-traumatic joint disorders (1 source) Pain in right knee; Translations: [Right knee pain] 03-28-2019 Episodic Other nutritional; endocrine; and metabolic disorders (18 sources) Body mass index 40+ - severely obese; Translations: [Morbid (severe) obesity due to excess calories] Onset: 11-14-2020 11-23-2020 Chronic Other nutritional; endocrine; and metabolic disorders (17 sources) Obese class II; Translations: [Obesity, unspecified] Onset: 05-15-2021 05-15-2021 Chronic Other screening for suspected conditions (not mental disorders or infectious disease) (17 sources) Urogenital finding; Translations: [Abnormal findings on diagnostic imaging of other specified body structures] Onset: 11-18-2007 01-23-2008 Chronic Other skin disorders (1 source) Ingrowing nail of toe of right foot; Translations: [Ingrowing nail] Episodic Other upper respiratory disease (17 sources) Allergic rhinitis; Translations: [Allergic rhinitis, unspecified] Onset: 08-10-2005 01-23-2008 Chronic Residual codes; unclassified (17 sources) Obstructive sleep apnea syndrome; Translations: [Obstructive sleep apnea (adult) (pediatric)] Onset: 03-14-2015 03-14-2015 Chronic Residual codes; unclassified (9 sources) Pain; Translations: [Pain, unspecified] 04-14-2024 Episodic Respiratory failure; insufficiency; arrest (adult) (10 sources) Acute respiratory failure; Translations: [Acute respiratory failure, unspecified whether with hypoxia or hypercapnia] Onset: 10-29-2022 10-28-2023 Episodic Superficial injury; contusion (1 source) Contusion of right forearm; Translations: [Contusion of right forearm, initial encounter] 12-23-2024 Episodic Thyroid disorders (9 sources) Hypothyroidism; Translations: [Hypothyroidism, unspecified] Onset: 03-15-2014 Resolved: 03-15-2014 03-15-2014 Chronic Unclassified (5 sources) Parkinson's disease; Translations: [Parkinson's disease] 05-20-2021 Chronic Unclassified (1 source) Unknown / UNK(Unknown) Onset: 03-14-2015 Urinary tract infections (2 sources) Urinary tract infectious disease; Translations: [Urinary tract infection, site not specified] 09-30-2024 Episodic Viral infection (5 sources) Disease caused by 2019-nCoV; Translations: [COVID-19] 03-09-2021 Episodic Past or Other Problems Problem Classification Problem Date Documented Da te Episodic/Chronic Aortic and peripheral arterial embolism or thrombosis (4 sources) Vascular disorder; Translations: [Embolism and thrombosis of unspecified artery] Onset: 8 Resolved: 4 10-28-2013 Chronic Cancer of thyroid (17 sources) History of malignant neoplasm of thyroid; Translations: [Personal history of malignant neoplasm of thyroid] Onset: 8 08-05-2019 Episodic Complication of device; implant or graft (4 sources) Arteriosclerosis of coronary artery bypass graft; Translations: [Atherosclerosis of coronary artery bypass graft(s) without angina pectoris] Onset: 8 Resolved: 1 10-17-2023 Chronic Conditions associated with dizziness or vertigo (4 sources) Benign paroxysmal positional vertigo; Translations: [Benign paroxysmal vertigo, unspecified ear] Onset: 9 Resolved: 4 10-28-2013 Episodic Deficiency and other anemia (4 sources) Anemia; Translations: [Anemia, unspecified] Onset: 8 Resolved: 4 10-28-2013 Episodic Gastrointestinal hemorrhage (8 sources) Gastrointestinal hemorrhage; Translations: [Gastrointestinal hemorrhage, unspecified] Onset: 5 Resolved: 1 11-15-2020 Episodic Hemorrhoids (17 sources) Internal hemorrhoids grade III; Translations: [Third degree hemorrhoids] Onset: 6 05-10-2015 Episodic Joint disorders and dislocations; trauma-related (8 sources) Tear of medial meniscus of knee; Translations: [Tear of medial cartilage or meniscus of knee, current] Onset: 4 Resolved: 4 09-18-2013 Episodic Other and unspecified benign neoplasm (17 sources) Tubular adenoma of colon; Translations: [Benign neoplasm of colon, unspecified] Onset: 6 05-10-2015 Episodic Other congenital anomalies (4 sources) Congenital anomaly of skin; Translations: [Other specified congenital malformations of skin] Onset: 8 Resolved: 4 10-28-2013 Chronic Other connective tissue disease (4 sources) Plantar fascial fibromatosis; Translations: [Plantar fascial fibromatosis] Onset: 8 Resolved: 4 10-28-2013 Episodic Other connective tissue disease (4 sources) Disorder of Achilles tendon; Translations: [Achilles tendinitis, unspecified leg] Onset: 1 Resolved: 4 10-28-2013 Episodic Other connective tissue disease (1 source) Pain in left leg; Translations: [Pain in left leg] Onset: 5 Episodic Other ear and sense organ disorders (4 sources) Pain of ear structure; Translations: [Otalgia, unspecified ear] Onset: 5 Resolved: 4 10-28-2013 Episodic Other non-traumatic joint disorders (20 sources) Pain in unspecified knee; Translations: [Pain in joint, lower leg] Onset: 4 10-28-2013 Episodic Other non-traumatic joint disorders (4 sources) Arthralgia of the pelvic region and thigh; Translations: [Pain in unspecified hip] Onset: 0 Resolved: 4 10-28-2013 Episodic Other nutritional; endocrine; and metabolic disorders (4 sources) Hypomagnesemia; Translations: [Hypomagnesemia] Onset: 4 Resolved: 1 11-15-2020 Chronic Other nutritional; endocrine; and metabolic disorders (4 sources) Body mass index 30+ - obesity; Translations: [Obesity, unspecified] Resolved: 1 11-15-2020 Chronic Other nutritional; endocrine; and metabolic disorders (4 sources) Overweight; Translations: [Overweight] Onset: 0 Resolved: 1 11-15-2020 Episodic Other screening for suspected conditions (not mental disorders or infectious disease) (7 sources) Patient encounter status; Translations: [Encounter for screening for cardiovascular disorders] Onset: 1 Resolved: 1 Episodic Other skin disorders (4 sources) Keloid scar; Translations: [Hypertrophic scar] Onset: 8 Resolved: 4 10-28-2013 Episodic Other skin disorders (4 sources) Scar conditions and fibrosis of skin; Translations: [Scar conditions and fibrosis of skin] Onset: 8 Resolved: 4 10-28-2013 Episodic Other skin disorders (4 sources) Ingrowing nail; Translations: [Ingrowing nail] Onset: 1 Resolved: 4 10-28-2013 Episodic Residual codes; unclassified (4 sources) Sleep apnea; Translations: [Sleep apnea, unspecified] Onset: 8 Resolved: 8 10-17-2023 Chronic Residual codes; unclassified (17 sources) History of repair of mitral valve; Translations: [Other specified postprocedural states] Onset: 1 02-09-2019 Episodic Residual codes; unclassified (17 sources) Insomnia; Translations: [Insomnia, unspecified] Onset: 4 10-28-2013 Episodic Residual codes; unclassified (17 sources) Edema of foot; Translations: [Localized edema] Onset: 4 01-11-2014 Episodic Spondylosis; intervertebral disc disorders; other back problems (4 sources) Sciatica; Translations: [Sciatica, unspecified side] Onset: 0 Resolved: 4 10-28-2013 Episodic Results Test Name Value Interpretation Reference Range Facility [facility] 12-02-2024 CNOV Office Visit (BLAKE MARSHALL[facility]) -------- KIMBERLY NAVA ([id number]) 1945 M Date Time Provider Department 12/02/24 2:20 PM SRIRAM VALLES During your visit today, we recorded the following information about you: Pulse Blood pressure Weight Height 81/minute 133/74 104.3 kg 1.676 m Sriram Valles MD 12/02/2024 2:19 PM Signed Sriram Valles MD Interventional Cardiology [address] [place], [place] [id number] Chief Complaint Patient presents with: CARD Follow Up Annual: CAD HISTORY OF PRESENT ILLNESS: Mr. Nava is a 79-year-old male with a history of severe CAD, status post CABG, presenting for follow-up. The patient reports no current issues with his Heart and denies experiencing chest pain or dyspnea. He admits to being less active than recommended, attributing this to laziness. He uses a cane primarily for stability when navigating unfamiliar areas but does not require it at home. He underwent CABG with BOWLING to the LAD, and vein grafts to the diagonal and PDA. Mitral valve ring repair for severe MR A TTE performed in 05/2022 showed no significant abnormalities. He currently takes atorvastatin, aspirin, famotidine, Lasix, insulin, and losartan. Cardiac Risk Factors age (male over 45, [...] (BMI 30-39.9) Obstructive sleep apnea Bipap, seeing [facility] [place] with quad. bypass and valve repair- DVT after Pure hypercholesterolemia Restless leg syndrome Rheum heart dis NEC/NOS CHILD Rheumatic fever S/P MVR (mitral valve repair) Sciatica Sensorineural hearing loss, unspecified Sensorineural hearing loss Stable angina Unspecified essential hypertension Unspecified tinnitus Tinnitus PAST [...] of Onset None Mother 98 Heart Father [place] AGE 67 Diabetes Father Hypertension Brother Diabetes Brother other (malignant hyp) Paternal Aunt other (malignant hyperthermia) Other 1st cousin SOCIAL HISTORY[1] ALLERGIES Allergen Reactions Inhaled Anesthetics* Mevacor [Lovastatin] [...] empty stomach. For thyroid. 30 tablet 2 clopidogrel (PLAVIX) 75 mg tablet Take 1 tablet by mouth once daily. 90 tablet 0 famotidine (PEPCID) 10 mg tablet Take 1 tablet by mouth twice daily. (Patient taking differently: Take 20 mg by mouth two times a day.) 180 tablet 0 trospium (SANCTURA) 20 mg tablet Take 1 tablet by mouth twice daily. 60 tablet 1 levothyroxine (SYNTHROID) 200 mcg tablet Take one tablet daily. 30 tablet 1 tamsulosin (FLOMAX) 0.4 mg Take 2 capsules by mouth daily at bedtime. Magnesium Oxide 420 mg tab Take one [...] PAP therapy. He liked medium Kristine View (more content not included)... Normal [facility] Urine Cultureon 10-01-2024 URC Culture exhibits no growth. Normal [facility] Comment on above: Performed By: #### M 100.2200, L400.0001 #### [facility] Laboratory [address] [place], [address] Emergency Department Summary on 09-30-2024 Emergency Department Summary [facility] Medical Records Department [address] [place] [address] Emergency Department Summary 09/30/24 MR#: [id number] Acct: [id number] Name: KIMBERLY NAVA Rep #: [id number] : 1945 79 From: Wally Molina MD PCP: [facility] Status:REG ER Location: ED ADDENDUM by Dr. Wally Molina MD on 09/30/24 at 0043 EKG was obtained and reveals atrial fibrillation rate of 134. QRS duration 70 ms. QT durations are 32 ms. There is decreased anterior force. At time of discharge monitor reveals patient have a heart rate of 85-95. This is without treatment. 09/30/24 0043 Cosigner Signature (if applicable): cc: [facility] * Signed HPI History of Present Illness Chief Complaint: Flank Pain [facility] Medical History Former tobacco use History of [...] tablet 81 mg PO DAILY heart health 09/27/24 History atorvastatin 40 mg tablet 40 mg PO QHS cholesterol 03/10/13 09/27/24 History levothyroxine 200 mcg tablet 200 mcg PO DAILY thyroid 03/10/13 09/27/24 History (Levoxyl) nitroglycerin 0.4 mg sublingual 0.4 mg sublingual Q5M PRN Chest 05/02/18 History tablet Pain sertraline 50 mg tablet 50 mg PO DAILY mental health 04/1409/27/24 History famotidine 10 mg tablet 10 mg PO DAILY reflux 02/18/21 History semaglutide 0.25 mg or 0.5 mg (2 0.5 mg subcut TH diabetes 02/18/21 09/24/24 History mg/1.5 mL) subcutaneous pen injector (Ozempic) carbidopa ER 25 mg-levodopa 100 mg 1 tab PO QHS tremors 04/14/24 History tablet,extended release multivitamin with iron 1 tab PO DAILY multivitamin 09/27/24 History vit C 250 mg-vit E 90 mg-zinc 40 1 tab PO BID vitamin 04/14/2409/07 History mg-copper 1 [id number] capsule (PreserVision AREDS-2) clopidogrel 75 mg tablet 75 mg PO DAILY antiplatelet 09/27/24 History insulin glargine 100 unit/mL (3 30 unit subcut BID diabetes 09/27/24 History mL) subcutaneous pen (Lantus Solostar U-100 Insulin) losartan 25 mg tablet 12.5 mg PO DAILY htn 09/23/2409/07 History potassium chloride 10 mEq 10 meq PO DAILY supplement 5 09/27/24 History tablet,extended release (Klor-Con) tamsulosin 0.4 mg capsule (Flomax) 0.8 mg PO QHS bladder 09/23/24 0 09/27/24 History trospium 20 mg tablet 20 mg PO BID antispasmodic 5 09/27/24 History cholecalciferol (vitamin D3) 50 2,000 unit PO DAILY 09/24/2409/27 History mcg (2,000 unit) chewable tablet empagliflozin 25 mg tablet 25 mg PO DAILY 09/24/24 09/27/24 H istory furosemide 20 mg tablet 20 mg PO Q12H diuretic 09/24/24 History magnesium oxide 420 mg tablet 420 mg PO QHS supplement 09/24/24 09/27/24 History metoprolol tartrate 25 mg tablet 50 mg PO Q12H htn 09/24/24 5 History trazodone 50 mg tablet 25 mg PO QHS PRN sleep 09/24/24 History ciprofloxacin HCl 500 mg tablet 500 mg PO BID #14 tabs 09/25/24 Rx oxycodone 5 mg tablet 5 mg PO Q6H PRN pain 7 days #20 09/27/24 Rx tabs cephalexin 500 mg capsule 500 mg PO Q8 #15 CAPSULES 09/30/24 Unknown Rx Allergy/AdvReac Type Severity Reaction Status Date / Time Anesthetics - Amide Type - Allergy Other Verified 09/29/24 20:41 [facility] - Rivka Type- Allergy Other Verified 09/29/24 20:41 Parabens albuterol AdvReac Mild thrush Verified 09/29/24 20:41 Family History Father CAD (coronary artery disease) Myocardial infarction Diabetes Heart disease Hypertension Brother Hypertension Diabetes Mother No problems noted. Surgical History History of ureter stent S/P thyroidectomy S/P arthroscopic knee surgery S/P hemorrhoidectomy Hx of elbow surgery S/P CABG x 4 S/P coronary artery stent placement Hx of mitral valve repair Social History household members: spouse Smoking Status: Former smoker quit date: 09/26/73 pack-ye (more content not included)... Normal [facility] Abdomen/Pelvis without Conto n 09-29-2024 Abdomen/Pelvis without Cont [facility] Services [address] [place], [place] [address] Abdomen/Pelvis without Cont MR#: [id number] Acct: [id number] Name: KIMBERLY NAVA Rep #: [id number] : 1945 M 79 From: Edwar Titus MD PCP: [facility] Status: REG ER Study: Abdomen/Pelvis without Cont Date of Exam: 09/07 07/31 Exam# [id number] Ordering Dr: Wally Molina MD PROCEDURE: ABDOMEN/PELVIS WITHOUT CONT 09/29/2024 REASON FOR EXAM: LEFT LOWER QUADRANT PAIN, GROSS HEMATURIA, HISTORY TECHNIQUE: ABDOMEN/PELVIS WITHOUT CONT Noncontrast technique limits evaluation of the abdominal and pelvic viscera. Coronal and Sagittal reconstruction series were provided. One or more dose reduction techniques were used (e.g., Automated exposure control, adjustment of the mA and/or kV according to patient size, use of iterative reconstruction technique). COMPARISON: CT abdomen and pelvis on 09/28/2024 FINDINGS: Lung bases: Bibasilar atelectasis. Right pleural calcifications suggestive of prior asbestos exposure. Multivessel coronary calcifications. Liver: Subcentimeter hypodensity at the right hepatic dome is too small to characterize. Gallbladder: Hydropic with hyperdense layering sludge. Spleen: Normal size. Pancreas: Normal size. No surrounding inflammation. Adrenals: Unremarkable Kidneys: Left nephroureteral stent with pigtails in the left ureteropelvic junction and urinary bladder. There is moderate persistent left hydroureteronephrosis, similar to the CT on 09/28/2024. There are hyperdense contents throughout the left renal collecting system, left ureter, and urinary bladder. A tiny nonobstructing stone at the lower pole of the left kidney is unchanged. Right kidney is located lower in the abdomen and with unchanged mild hydronephrosis. Bladder: Punctate focus of air present within the urinary bladder. Mild diffuse wall thickening. Reproductive Organs: Prostatomegaly with coarse calcifications. Bowel: No obstruction or inflammation. Lymph nodes: No significant lymphadenopathy. Vasculature: Moderate diffuse atherosclerotic calcifications are noted. Bones: Degenerative changes of the spine. Soft tissues: Fat containing left inguinal hernia. CT/Abdomen/Pelvis without Cont IMPRESSION: 1. No significant interval change in the moderate left hydroureteronephrosis, with stent in unchanged position. Hyperdense contents within the left renal collecting system, ureter, and urinary bladder may represent delayed excretion of the contrast from the CT performed yesterday. Blood products could also appear similar. 2. Punctate focus of air within the urinary bladder could be the result of recent instrumentation, though emphysematous cystitis could appear similar. Reading Location: [id number] CC: Dr. Wally Molina MD; [facility] Psychopaedic Nurse: Signed Normal [facility] Absolute lymphocyte countOrd ered By: Wally Molina on 09-29-2024 Lymphocytes Auto (Unsp spec) [#/Vol] 1.64 10*3/uL 0.83-4.51 [facility] Absolute neutrophil countOrd ered By: Wally Molina on 09-29-2024 Neutrophils (Bld) [#/Vol] 5.7 10*3/uL 2.0-7.7 [facility] Anion gap in Serum or Plasma Ordered By: Wallylouise Molina on 09-29-2024 Anion gap [Moles/Vol] 15 mmol/L 5-[address] [facility] Automated lymphocyte count a s percentage of total leukocytesOrdered By: Wally Molina on 09-29-2024 Lymphocytes/100 WBC Auto (Unsp spec) 18.7 % Low 19-41 [facility] BUN/creatinine ratioOrdered By: Wally Molina on 09-29-2024 Urea nitrogen/Creatinine [Mass ratio] 12.3 mg/mg 10-20 [facility] Basic Metabolic Profile (BMP )on 09-29-2024 BUN/CRE 12.3 RATIO Normal - [facility] Comment on above: Performed By: #### M 100.2200, L400.0001 #### [facility] [address] [place], [address] Calcium [Mass/Vol] 9.2 mg/dL Normal 7.6-11.0 [facility] Comment on above: Performed By: #### M 100.2200, L400.0001 #### [facility] [address] [place], [address] Chloride [Moles/Vol] 104 mmol/L Normal 98-108 [facility] Comment on above: Performed By: #### M 100.2200, L400.0001 #### [facility] [address] [place], [address] CO2 [Moles/Vol] 19.6 mmol/L Low 21.0-32.0 [facility] Comment on above: Performed By: #### M 100.2200, L400.0001 #### [facility] [address] [place], [address] Creatinine [Mass/Vol] 2.27 mg/dL High 0.70-1.[address] [facility] Comment on above: Performed By: #### M 100.2200, L400.0001 #### [facility] [address] [place], [address] ECRCL 29.35 ml/min Low 50-250 [facility] Comment on above: Performed By: #### M 100.2200, L400.0001 #### [facility] [address] [place], [address] GAP 15 Normal 5-15 [facility] Comment on above: Performed By: #### M 100.2200, L400.0001 #### [facility] [address] [place], [address] GFR/1.73 sq M.predicted among non-blacks MDRD (S/P/Bld) [Vol rate/Area] 29 mL/min/{1.73_m2} Low >60 [facility] Comment on above: Result Comment: mL/m in/1.73m2 CKD-EPI Creatinine Equation (2020) Performed By: #### M 100.2200, L400.0001 #### [facility] [address] [place], [address] Glucose [Mass/Vol] 114 mg/dL High 70-99 [facility] Comment on above: Performed By: #### M 100.2200, L400.0001 #### [facility] [address] [place], [address] Potassium [Moles/Vol] 4.9 mmol/L Normal 3.3-5.[address] [facility] Comment on above: Result Comment: Hemo lysis present, Results??could be affected. ?? Hemolysis present, Results??could be affected. ?? Performed By: #### M 100.2200, L400.0001 #### [facility] [address] [place], [address] Sodium [Moles/Vol] 139 mmol/L Normal 133-145 [facility] Comment on above: Performed By: #### M 100.2200, L400.0001 #### [facility] [address] [place], [address] Urea nitrogen [Mass/Vol] 28 mg/dL High 4-19 [facility] Comment on above: Performed By: #### M 100.2200, L400.0001 #### [facility] [address] [place], [address] Basophil percentageOrdered B y: Wally Molina on 09-29-2024 Basophils/100 WBC (Bld) 0.7 % 0-1 [facility] Bedside Glucoseon 09-29-2024 FINGERSTICK GLU 102 mg/dL Normal 74-106 [facility] Comment on above: Result Comment: DAVID REED OF PATIENT CARE PER NURSING PROTOCOL Performed By: #### L 501.080 #### [facility] [address] [place], [address] Bilirubin Test strip Ql (U)O rdered By: Wally Molina on 09-29-2024 Bilirubin Ql (U) Negative Negative [facility] CBC W/Diff, Automatedon 09-07 Absolute Lymph 1.64 X10 3/uL Normal 0.83-4.51 [facility] Comment on above: Performed By: #### M 100.2200, L400.0001 #### [facility] [address] [place], [address] Absolute Neut 5.7 X10 3/uL Normal 2.0-7.7 [facility] Comment on above: Performed By: #### M 100.2200, L400.0001 #### [facility] [address] [place], [address] Basophils/100 WBC (Bld) 0.7 % Normal 0-1 [facility] Comment on above: Performed By: #### M 100.2200, L400.0001 #### [facility] [address] [place], [address] Eosinophils/100 WBC (Bld) 5.2 % High 0-5 [facility] Comment on above: Performed By: #### M 100.2200, L400.0001 #### [facility] [address] [place], [address] Erythrocyte distribution width (RBC) [Ratio] 13.5 % Normal 11.6-14.6 [facility] Comment on above: Performed By: #### M 100.2200, L400.0001 #### [facility] [address] [place], [address] Hematocrit (Bld) [Volume fraction] 44.3 % Normal 40-54 [facility] Comment on above: Performed By: #### M 100.2200, L400.0001 #### [facility] [address] [place], [address] Hemoglobin (Bld) [Mass/Vol] 14.9 g/dL Normal 13.0-16.5 [facility] Comment on above: Performed By: #### M 100.2200, L400.0001 #### [facility] [address] [place], [address] IG% 0.300 Normal 0.0-0.9 [facility] Comment on above: Result Comment: IG% - Immature Granulocytes (promyelocytes, myelocytes and metamyelocytes) > 1% indicates that a LEFT SHIFT is Present. Performed By: #### M 100.2200, L400.0001 #### [facility] [address] [place], [address] Lymphocytes/100 WBC (Bld) 18.7 % Low 19-41 [facility] Comment on above: Performed By: #### M 100.2200, L400.0001 #### [facility] [address] [place], [address] MCH (RBC) [Entitic mass] 31.4 pg Normal 27.0-32.0 [facility] Comment on above: Performed By: #### M 100.2200, L400.0001 #### [facility] [address] [place], [address] MCHC (RBC) [Mass/Vol] 33.6 g/dL Normal 32-[address] [facility] Comment on above: Performed By: #### M 100.2200, L400.0001 #### [facility] [address] [place], [address] MCV (RBC) [Entitic vol] 93.5 fL Normal 80-94 [facility] Comment on above: Performed By: #### M 100.2200, L400.0001 #### [facility] [facility] [address] [place], [address] Monocytes/100 WBC (Bld) 10.7 % High 0-10 [facility] Comment on above: Performed By: #### M 100.2200, L400.0001 #### [facility] [address] [place], [address] Neutrophils/100 WBC (Bld) 64.4 % Normal 47-70 [facility] Comment on above: Performed By: #### M 100.2200, L400.0001 #### [facility] [address] [place], [address] Nucleated RBC (Bld) [#/Vol] 0 10*3/uL Normal 0-5 [facility] Comment on above: Performed By: #### M 100.2200, L400.0001 #### [facility] [address] [place], [address] Platelet mean volume (Bld) [Entitic vol] 11.3 fL Normal 6.2-12.0 [facility] Comment on above: Performed By: #### M 100.2200, L400.0001 #### [facility] [address] [place], [address] Platelets (Bld) [#/Vol] 220 10*3/uL Normal 150-450 [facility] Comment on above: Performed By: #### M 100.2200, L400.0001 #### [facility] [address] [place], [address] RBC (Bld) [#/Vol] 4.74 10*6/uL Normal 4.6-6.2 [facility] Comment on above: Performed By: #### M 100.2200, L400.0001 #### [facility] [address] [place], [address] RDW SD 46.5 fl High 35.1-43.9 [facility] Comment on above: Performed By: #### M 100.2200, L400.0001 #### [facility] [address] [place], [address] WBC (Bld) [#/Vol] 8.8 10*3/uL Normal 4.4-11.0 [facility] Comment on above: Performed By: #### M 100.2200, L400.0001 #### [facility] [address] [place], [address] Carbon dioxide, total [Moles /volume] in Central venous bloodOrdered By: Wally Molina on 09-29-2024 CO2 [Moles/Vol] 19.6 mmol/L Low 21.0-32.0 [facility] Chloride assayOrdered By: Ug o Molina on 09-29-2024 Chloride [Moles/Vol] 104 mmol/L 98-108 [facility] Eosinophil percentageOrdered By: Wally Molina on 09-29-2024 Eosinophils/100 WBC (Bld) 5.2 % High 0-5 [facility] Erythrocyte distribution wid th ratioOrdered By: Wally Molina on 09-29-2024 Erythrocyte distribution width (RBC) [Ratio] 13.5 % 11.6-14.6 [facility] Erythrocyte distribution wid th standard deviationOrdered By: Wally Molina on 09-29-2024 Erythrocyte distribution width (RBC) [Ratio] 46.5 fl High 35.1-43.9 [facility] Glomerular filtration rate ( GFR) estimation/1.73 sq m using serum, plasma, or whole bOrdered By: Wally Molina on 09-29-2024 GFR/1.73 sq M.predicted among non-blacks MDRD (S/P/Bld) [Vol rate/Area] 29 mL/min/{1.73_m2} Low >60 [facility] Comment on above: mL/min/1.73m2 CKD-EP I Creatinine Equation (2020) Glucose measurement at bedsi deOrdered By: Wally Molina on 09-29-2024 Glucose [Mass/Vol] 102 mg/dL 74-106 [facility] Comment on above: MANAGEMENT OF PATIEN T CARE PER NURSING PROTOCOL Hematocrit Auto (Bld) [Volum e fraction]Ordered By: Wally Molina on 09-29-2024 Hematocrit (Bld) [Volume fraction] 44.3 % 40-54 [facility] Hemoglobin measurementOrdere d By: Wally Molina on 09-29-2024 Hemoglobin (Bld) [Mass/Vol] 14.9 g/dL 13.0-16.5 [facility] Immature granulocytes/100 WB C Auto (Bld)Ordered By: Wally Molina on 09-29-2024 Immature granulocytes/100 WBC (Bld) 0.300 % 0.0-0.9 [facility] Comment on above: IG% - Immature Granu locytes (promyelocytes, myelocytes and metamyelocytes) > 1% indicates that a LEFT SHIFT is Present. Ketones Test strip Ql (U)Ord ered By: Wally Molina on 09-29-2024 Ketones Ql (U) Negative Negative [facility] MCV (mean corpuscular volume ) determinationOrdered By: Wally Molina on 09-29-2024 MCV (RBC) [Entitic vol] 93.5 fL 80-94 [facility] Mean corpuscular hemoglobin (MCH) determinationOrdered By: Wally Molina on 09-29-2024 MCH (RBC) [Entitic mass] 31.4 pg 27.0-32.0 [facility] Mean corpuscular hemoglobin concentration (MCHC) determinationOrdered By: Wally Molina on 09-29-2024 MCHC (RBC) [Mass/Vol] 33.6 g/dL 32-36 [facility] Mean platelet volume determi nationOrdered By: Wally Molina on 09-29-2024 Platelet mean volume (Bld) [Entitic vol] 11.3 fL 6.2-12.0 [facility] Microscopic analysis of urin e for red blood cells (RBC)Ordered By: Wally Molina on 09-29-2024 Microscopic analysis of urine for red blood cells (RBC) > 100 SEEN /hpf 0-5 [facility] [facility] Monocyte percentageOrdered B y: Wallylouise Montoyao on 09-29-2024 Monocytes/100 WBC (Bld) 10.7 % High 0-10 [facility] Mucus LM Ql (Urine sed)Order ed By: Wally Molina on 09-29-2024 Mucus Ql (Urine sed) 0 SEEN /hpf [facility] Neutrophil percentageOrdered By: Wally Molina on 09-29-2024 Neutrophils/100 WBC (Bld) 64.4 % 47-70 [facility] Nitrite Test strip Ql (U)Ord ered By: Wally Molina on 09-29-2024 Nitrite Ql (U) Positive High Negative [facility] Nucleated red blood cell per centageOrdered By: Wally Molina on 09-29-2024 Nucleated RBC/100 WBC (Bld) [Ratio] 0 % 0-5 [facility] Platelet countOrdered By: Jagdeep Molina on 09-29-2024 Platelets (Bld) [#/Vol] 220 10*3/uL 150-450 [facility] Potassium measurement (mass/ volume)Ordered By: Wallylouise Molina on 09-29-2024 Potassium (Unsp spec) [Mass/Vol] 4.9 mmol/L 3.3-5.1 [facility] Comment on above: Hemolysis present, R esults could be affected. Hemolysis present, Results could be affected. Protein Test strip Ql (U)Ord ered By: Wally Molina on 09-29-2024 Protein Ql (U) 100 mg/dl High Negative [facility] RBC Auto (Bld) [#/Vol]Ordere d By: Wally Molina on 09-29-2024 RBC (Bld) [#/Vol] 4.74 10*6/uL 4.6-6.2 [facility] Serum creatinine measurement (mass/volume)Ordered By: Wally Molina on 09-29-2024 Creatinine [Mass/Vol] 2.27 mg/dL High 0.70-1.[address] [facility] Serum glucose measurement (m ass/volume)Ordered By: Wally Molina on 09-29-2024 Glucose [Mass/Vol] 114 mg/dL High 70-99 [facility] Serum or plasma calcium chase urement (mass/volume)Ordered By: Wally Molina on 09-29-2024 Calcium [Mass/Vol] 9.2 mg/dL 7.6-11.0 [facility] Serum or plasma urea nitroge n measurement (mass/volume)Ordered By: Wally Molina on 09-29-2024 Urea nitrogen [Mass/Vol] 28 mg/dL High 4-19 [facility] Sodium levelOrdered By: Wally Molina on 09-29-2024 Sodium [Moles/Vol] 139 mmol/L 133-145 [facility] Squamous epithelial cells de tection in urine sediment by light microscopyOrdered By: Wallylouise Molina on 09-29-2024 Epithelial cells.squamous LM Ql (Urine sed) 5-10 SEEN /hpf 0-5 [facility] Transitional cells detection in urine sediment by light microscopyOrdered By: Wally Molina on 09-29-2024 Transitional cells LM Ql (Urine sed) 0-5 SEEN /hpf 0-5 [facility] Urinalysis, Completeon 09-29 BACTERIA 2+ /hpf Normal None Seen [facility] Comment on above: Order Comment: COLOR OF URINE MAY AFFECT DIPSTICK RESULTS. CLEAN CATCH Performed By: #### M 100.2200, L400.0001 #### [facility] [address] [place], [address] EPI,SQUAMOUS 5-10 SEEN Normal 0-5 [facility] Comment on above: Order Comment: COLOR OF URINE MAY AFFECT DIPSTICK RESULTS. CLEAN CATCH Performed By: #### M 100.2200, L400.0001 #### [facility] [address] [place], [address] EPI,TRANSITION 0-5 SEEN Normal 0-5 [facility] Comment on above: Order Comment: COLOR OF URINE MAY AFFECT DIPSTICK RESULTS. CLEAN CATCH Performed By: #### M 100.2200, L400.0001 #### [facility] [address] [place], [address] WBC 10-25 SEEN Normal 0-5 [facility] Comment on above: Order Comment: COLOR OF URINE MAY AFFECT DIPSTICK RESULTS. CLEAN CATCH Performed By: #### M 100.2200, L400.0001 #### [facility] [address] [place], [address] RBC > 100 SEEN Normal 0-5 [facility] Comment on above: Order Comment: COLOR OF URINE MAY AFFECT DIPSTICK RESULTS. CLEAN CATCH Performed By: #### M 100.2200, L400.0001 #### [facility] [address] [place], [address] Mucus Ql (Urine sed) 0 SEEN Normal [facility] Comment on above: Order Comment: COLOR OF URINE MAY AFFECT DIPSTICK RESULTS. CLEAN CATCH Performed By: #### M 100.2200, L400.0001 #### [facility] [address] [place], [address] Urine Cultureon 09-29-2024 URC Culture exhibits no growth. Normal [facility] Comment on above: Performed By: #### M 100.2200, L400.0001 #### [facility] [address] [place], [address] Urine clarityOrdered By: Wally Molina on 09-29-2024 Clarity (U) Cloudy Clear [facility] Urine color determinationOrd ered By: Wally Molina on 09-29-2024 Color (U) Harshad Yellow [facility] Urine cultureOrdered By: Wally Molina on 09-29-2024 Bacteria identified Cx Nom (U) Culture exhibits no growth. [facility] Urine glucose detectionOrder ed By: Wally Molina on 09-29-2024 Glucose Ql (U) 1000 mg/dl High Normal [facility] Urine leukocyte esterase det ection by dipstickOrdered By: Wally Molina on 09-29-2024 Leukocyte esterase Test strip Ql (U) 100 /ul High Negative [facility] Urine pHOrdered By: Wally gil on 09-29-2024 pH (U) 6.0 [pH] 5.0 - 8.0 [facility] Urine sediment bacteria coun t by microscopy (number/high power field)Ordered By: [facility] on 09-29-2024 Bacteria LM.HPF (Urine sed) [#/Area] 2 /[HPF] None Seen [facility] Urine specific gravity measu rementOrdered By: [facility] on 09-29-2024 Specific gravity (U) [Rel density] 1.020 1.002-1.030 [facility] Urine urobilinogen measureme ntOrdered By: [facility] on 09-29-2024 Urobilinogen Ql (U) Normal mg/dl Normal [facility] White blood cell (WBC) count Ordered By: [facility] on 09-29-2024 WBC (Bld) [#/Vol] 8.8 10*3/uL 4.4-11.0 [facility] White blood cell countOrdere d By: [facility] on 09-29-2024 White blood cell count 10-25 SEEN /hpf 0-5 [facility] Abdomen/Pelvis W IV Cont ONL Yon 09-28-2024 Abdomen/Pelvis W IV Cont ONLY [facility] [address] [place], [place] [address] Abdomen/Pelvis W IV Cont ONLY MR#: [id number] Acct: [id number] Name: KIMBERLY NAVA Rep #: [id number] : 1945 M 79 From: Mal aquino MD PCP: [facility] Status: REG ER Study: Abdomen/Pelvis W IV Cont ONLY Date of Exam: Exam# [id number] Ordering Dr: Darwin Kruger DO PROCEDURE: ABDOMEN/PELVIS W IV CONT ONLY 09/28/2024 REASON FOR EXAM: LLQ PAIN, RECENT LITHOTRIPSY TECHNIQUE: ABDOMEN/PELVIS W IV CONT ONLY. Coronal and Sagittal reconstruction series were provided. CONTRAST: Isovue-300 VOLUME: 100 mL One or more dose reduction techniques were used (e.g., Automated exposure control, adjustment of the mA and/or kV according to patient size, use of iterative reconstruction technique. RADIATION DOSE SUMMARY: CTDlvol: 20.7 mGy DLP: 1156.23 mGycm COMPARISON: Prior study dated September 23, 2024. FINDINGS: Lung bases: Mild dependent atelectasis. Calcified granuloma in the right lower lobe. Coronary artery calcification. Liver: Diffuse fatty infiltration. 1 cm hypodensity in the dome of the right lobe of the liver suggestive of a small cyst. This is unchanged. Gallbladder: Mildly distended gallbladder. Spleen: Normal size. Pancreas: Normal size without evidence of mass surrounding inflammation or ductal dilation. Adrenals: Unremarkable Kidneys: Moderate degree of left hydronephrosis and hydroureter. Nonobstructive calculus is seen in the lower pole calyx of the left kidney. A left-sided double-J stent catheter is seen with the proximal tip in the left renal pelvis and distal tip in the urinary bladder. There is malrotation of the right kidney. Mild degree of right hydronephrosis. Bladder: Mild degree of bladder wall thickening. The prostate gland is enlarged. It measures 4.6 cm by 6.2 cm. Central prostatic calcifications present. Bowel: Colonic diverticulosis without diverticulitis. Appendix: Unremarkable Lymph nodes: Unremarkable Vasculature: Mild diffuse atherosclerotic calcifications are noted. Peritoneum / Retroperitoneum: Unremarkable Bones: Degenerative changes of the spine. CT/Abdomen/Pelvis W IV Cont ONLY IMPRESSION: Status post left double J stent catheter placement. Residual left hydronephrosis and hydroureter. The previously seen the distal left ureteral calculus is not seen at this time. Sigmoid diverticulosis. Reading Location: [facility] CC: Dr. Darwin Kruger, ; [facility] Psychopaedic Nurse: Signed Normal [facility] Absolute lymphocyte countOrd ered By: Darwin Kruger on 09-28-2024 Lymphocytes Auto (Unsp spec) [#/Vol] 1.49 10*3/uL 0.83-4.51 [facility] Absolute neutrophil countOrd ered By: Darwin Kruger on 09-28-2024 Neutrophils (Bld) [#/Vol] 4.3 10*3/uL 2.0-7.7 [facility] Anion gap in Serum or Plasma Ordered By: Darwin Kruger on 09-28-2024 Anion gap [Moles/Vol] 16 mmol/L High 5-[address] [facility] Automated lymphocyte count a s percentage of total leukocytesOrdered By: Darwin Kruger on 09-28-2024 Lymphocytes/100 WBC Auto (Unsp spec) 21.5 % 19-41 [facility] BUN/creatinine ratioOrdered By: Darwin Kruger on 09-28-2024 Urea nitrogen/Creatinine [Mass ratio] 12.9 mg/mg 10-20 [facility] Basophil percentageOrdered B y: Darwin Kruger on 09-28-2024 Basophils/100 WBC (Bld) 0.4 % 0-1 [facility] Bilirubin Test strip Ql (U)O rdered By: Darwin Kruger on 09-28-2024 Bilirubin Ql (U) Negative Negative [facility] Bilirubin, totalOrdered By: Darwin Kruger on 09-28-2024 Bilirubin [Mass/Vol] 1.15 mg/dL 0.00-1.30 [facility] CBC W/Diff, Automatedon 09-07 Absolute Lymph 1.49 X10 3/uL Normal 0.83-4.51 [facility] Comment on above: Performed By: #### L 500.4050, L100.0100, L501.2450 ####[facility] [address] [place], [address] Absolute Neut 4.3 X10 3/uL Normal 2.0-7.7 [facility] Comment on above: Performed By: #### L 500.4050, L100.0100, L501.2450 ####[facility] [address] [place], [address] Basophils/100 WBC (Bld) 0.4 % Normal 0-1 [facility] Comment on above: Performed By: #### L 500.4050, L100.0100, L501.2450 ####[facility] [address] [place], [address] Eosinophils/100 WBC (Bld) 5.1 % High 0-5 [facility] Comment on above: Performed By: #### L 500.4050, L100.0100, L501.2450 ####[facility] [address] [place], [address] Erythrocyte distribution width (RBC) [Ratio] 13.3 % Normal 11.6-14.6 [facility] Comment on above: Performed By: #### L 500.4050, L100.0100, L501.2450 ####[facility] [address] [place], [address] Hematocrit (Bld) [Volume fraction] 45.8 % Normal 40-54 [facility] Comment on above: Performed By: #### L 500.4050, L100.0100, L501.2450 ####[facility] [address] [place], [address] Hemoglobin (Bld) [Mass/Vol] 15.3 g/dL Normal 13.0-16.5 [facility] Comment on above: Performed By: #### L 500.4050, L100.0100, L501.2450 ####[facility] [address] [place], [address] IG% 0.400 Normal 0.0-0.9 [facility] Comment on above: Result Comment: IG% - Immature Granulocytes (promyelocytes, myelocytes and metamyelocytes) > 1% indicates that a LEFT SHIFT is Present. Performed By: #### L 500.4050, L100.0100, L501.2450 ####[facility] [address] [place], [address] Lymphocytes/100 WBC (Bld) 21.5 % Normal 19-41 [facility] Comment on above: Performed By: #### L 500.4050, L100.0100, L501.2450 ####[facility] [address] [place], [address] MCH (RBC) [Entitic mass] 31.2 pg Normal 27.0-32.0 [facility] Comment on above: Performed By: #### L 500.4050, L100.0100, L501.2450 ####[facility] [address] [place], [address] MCHC (RBC) [Mass/Vol] 33.4 g/dL Normal 32-[address] [facility] Comment on above: Performed By: #### L 500.4050, L100.0100, L501.2450 ####[facility] [address] [place], [address] MCV (RBC) [Entitic vol] 93.3 fL Normal 80-94 [facility] Comment on above: Performed By: #### L 500.4050, L100.0100, L501.2450 ####[facility] [address] [place], [address] Monocytes/100 WBC (Bld) 10.4 % High 0-10 [facility] Comment on above: Performed By: #### L 500.4050, L100.0100, L501.2450 ####[facility] [address] [place], [address] Neutrophils/100 WBC (Bld) 62.2 % Normal 47-70 [facility] Comment on above: Performed By: #### L 500.4050, L100.0100, L501.2450 ####[facility] [address] [place], [address] Nucleated RBC (Bld) [#/Vol] 0 10*3/uL Normal 0-5 [facility] Comment on above: Performed By: #### L 500.4050, L100.0100, L501.2450 ####[facility] [address] [place], [address] Platelet mean volume (Bld) [Entitic vol] 10.5 fL Normal 6.2-12.0 [facility] Comment on above: Performed By: #### L 500.4050, L100.0100, L501.2450 ####[facility] [address] [place], [address] Platelets (Bld) [#/Vol] 164 10*3/uL Normal 150-450 [facility] Comment on above: Performed By: #### L 500.4050, L100.0100, L501.2450 ####[facility] [address] [place], [address] RBC (Bld) [#/Vol] 4.91 10*6/uL Normal 4.6-6.2 [facility] Comment on above: Performed By: #### L 500.4050, L100.0100, L501.2450 ####[facility] [address] [place], [address] RDW SD 45.4 fl High 35.1-43.9 [facility] Comment on above: Performed By: #### L 500.4050, L100.0100, L501.2450 ####[facility] [address] [place], [address] WBC (Bld) [#/Vol] 6.9 10*3/uL Normal 4.4-11.0 [facility] Comment on above: Performed By: #### L 500.4050, L100.0100, L501.2450 ####[facility] [address] [place], [address] Carbon dioxide, total [Moles /volume] in Central venous bloodOrdered By: Darwin Kruger on 09-28-2024 CO2 [Moles/Vol] 22.7 mmol/L 21.0-32.0 [facility] Chloride assayOrdered By: Ricci Kruger on 09-28-2024 Chloride [Moles/Vol] 102 mmol/L 98-108 [facility] Comprehensive Metabolic Prof ilon 09-28-2024 Albumin [Mass/Vol] 3.9 g/dL Normal 3.4-4.8 [facility] Comment on above: Performed By: #### L 500.4050, L100.0100, L501.2450 ####[facility] [address] [place], [address] Albumin/Globulin [Mass ratio] 1.4 {ratio} Normal 0.9-2.4 [facility] Comment on above: Performed By: #### L 500.4050, L100.0100, L501.2450 ####[facility] [address] [place], [address] ALK PHOS 120 U/L Normal 40-129 [facility] Comment on above: Performed By: #### L 500.4050, L100.0100, L501.2450 ####[facility] [address] [place], [address] ALT [Catalytic activity/Vol] 14 U/L Normal <=46 [facility] Comment on above: Performed By: #### L 500.4050, L100.0100, L501.2450 ####[facility] [address] [place], [address] AST [Catalytic activity/Vol] 28 U/L Normal <=37 [facility] Comment on above: Performed By: #### L 500.4050, L100.0100, L501.2450 ####[facility] [address] [place], [address] Bilirubin [Mass/Vol] 1.15 mg/dL Normal 0.00-1.30 [facility] Comment on above: Performed By: #### L 500.4050, L100.0100, L501.2450 ####[facility] [address] [place], [address] BUN/CRE 12.9 RATIO Normal 10-20 [facility] Comment on above: Performed By: #### L 500.4050, L100.0100, L501.2450 ####[facility] [address] [place], [address] Calcium [Mass/Vol] 9.2 mg/dL Normal 7.6-11.0 [facility] Comment on above: Performed By: #### L 500.4050, L100.0100, L501.2450 ####[facility] [address] [place], [address] Chloride [Moles/Vol] 102 mmol/L Normal 98-108 [facility] Comment on above: Performed By: #### L 500.4050, L100.0100, L501.2450 ####[facility] [address] [place], [address] CO2 [Moles/Vol] 22.7 mmol/L Normal 21.0-32.0 [facility] Comment on above: Performed By: #### L 500.4050, L100.0100, L501.2450 ####[facility] [address] [place], [address] Creatinine [Mass/Vol] 2.00 mg/dL High 0.70-1.[address] [facility] Comment on above: Performed By: #### L 500.4050, L100.0100, L501.2450 ####[facility] [address] [place], [address] ECRCL 33.38 ml/min Low 50-250 [facility] Comment on above: Performed By: #### L 500.4050, L100.0100, L501.2450 ####[facility] [address] [place], [address] GAP 16 High 5-15 [facility] Comment on above: Performed By: #### L 500.4050, L100.0100, L501.2450 ####[facility] [address] [place], [address] GFR/1.73 sq M.predicted among non-blacks MDRD (S/P/Bld) [Vol rate/Area] 33 mL/min/{1.73_m2} Low >60 [facility] Comment on above: Result Comment: mL/m in/1.73m2 CKD-EPI Creatinine Equation (2020) Performed By: #### L 500.4050, L100.0100, L501.2450 ####[facility] [address] [place], [address] Globulin (S) [Mass/Vol] 2.8 g/dL Normal 2.2-4.2 [facility] Comment on above: Performed By: #### L 500.4050, L100.0100, L501.2450 ####[facility] [address] [place], [address] Glucose [Mass/Vol] 149 mg/dL High 70-99 [facility] Comment on above: Performed By: #### L 500.4050, L100.0100, L501.2450 ####[facility] [facility] [address] [place], [address] Potassium [Moles/Vol] 3.8 mmol/L Normal 3.3-5.[address] [facility] Comment on above: Performed By: #### L 500.4050, L100.0100, L501.2450 ####[facility] [address] [place], [address] Sodium [Moles/Vol] 141 mmol/L Normal 133-145 [facility] Comment on above: Performed By: #### L 500.4050, L100.0100, L501.2450 ####[facility] [address] [place], [address] T PROT 6.7 g/dL Normal 5.9-8.4 [facility] Comment on above: Performed By: #### L 500.4050, L100.0100, L501.2450 ####[facility] [address] [place], [address] Urea nitrogen [Mass/Vol] 26 mg/dL High 4- [facility] Comment on above: Performed By: #### L 500.4050, L100.0100, L501.2450 ####[facility] [address] [place], [address] Emergency Department Summary on 09-28-2024 Emergency Department Summary [facility] Medical Records Department [address] [place] [address] Emergency Department Summary 09/28/24 MR#: [id number] Acct: [id number] Name: KIMBERLY NAVA Rep #: [id number] : 1945 79 From: Darwin Kruger DO PCP: [facility] Status:REG ER Location: ED HPI History of Present Illness Chief Complaint: Flank Pain Narrative Narrative: Patient is a 79-year-old male with past medical history of DVT, tubular adenoma of the colon, ANABELL, kidney stones with recent lithotripsy, diabetes, CHF, hypothyroidism who presents to the emergency department chief complaint of abdominal pain. Patient states that last week he was diagnosed with a kidney stone and had lithotripsy performed. He states that afterwards he was still having discomfort however he states that nothing seem to be worsening. He states that yesterday afternoon he actually started feeling better and then by the evening again he started feeling worse with painful urination. He states that he has not any blood thinning medications currently. He currently rates his pain a 5 out of 10 in the left lower portion of his abdomen. Denies any recent contacts denies dark tarry stools blood in the stool [facility] Medical History Former tobacco use History of [...] tablet 81 mg PO DAILY heart health 09/27/24 History atorvastatin 40 mg tablet 40 mg PO QHS cholesterol 03/10/13 09/27/24 History levothyroxine 200 mcg tablet 200 mcg PO DAILY thyroid 03/10/13 09/27/24 History (Levoxyl) nitroglycerin 0.4 mg sublingual 0.4 mg sublingual Q5M PRN Chest 05/02/18 History tablet Pain sertraline 50 mg tablet 50 mg PO DAILY mental health 04/1409/27/24 History famotidine 10 mg tablet 10 mg PO DAILY reflux 02/18/21 History semaglutide 0.25 mg or 0.5 mg (2 0.5 mg subcut TH diabetes 02/18/21 09/24/24 History mg/1.5 mL) subcutaneous pen injector (Ozempic) carbidopa ER 25 mg-levodopa 100 mg 1 tab PO QHS tremors 04/14/24 History tablet,extended release multivitamin with iron 1 tab PO DAILY multivitamin 09/27/24 History vit C 250 mg-vit E 90 mg-zinc 40 1 tab PO BID vitamin 04/14/2409/07 History mg-copper 1 mq-hhavfn-qpihki capsule (PreserVision AREDS-2) clopidogrel 75 mg tablet 75 mg PO DAILY antiplatelet 09/27/24 History insulin glargine 100 unit/mL (3 30 unit subcut BID diabetes 09/27/24 History mL) subcutaneous pen (Lantus Solostar U-100 Insulin) losartan 25 mg tablet 12.5 mg PO DAILY htn 09/23/2409/07 History potassium chloride 10 mEq 10 meq PO DAILY supplement 5 09/27/24 History tablet,extended release (Klor-Con) tamsulosin 0.4 mg capsule (Flomax) 0.8 mg PO QHS bladder 09/23/24 0 09/27/24 History trospium 20 mg tablet 20 mg PO BID antispasmodic 5 09/27/24 History cholecalciferol (vitamin D3) 50 2,000 unit PO DAILY 09/24/2409/27 History mcg (2,000 unit) chewable tablet empagliflozin 25 mg tablet 25 mg PO DAILY 09/24/24 09/27/24 H istory furosemide 20 mg tablet 20 mg PO Q12H diuretic 09/24/24 History magnesium oxide 420 mg tablet 420 mg PO QHS supplement 09/24/24 09/27/24 History metoprolol tartrate 25 mg tablet 50 mg PO Q12H htn 09/24/24 5 History trazodone 50 mg tablet 25 mg PO QHS PRN sleep 09/24/24 History ciprofloxacin HCl 500 mg tablet 500 mg PO BID #14 tabs 09/25/24 Rx oxycodone 5 mg tablet 5 mg PO Q6H PRN pain 7 days #20 09/27/24 Rx tabs Allergy/AdvReac Type Severity Reaction Status Date / Time Anesthetics - Amide Type - Allergy Other Verified 09/28/24 07:48 [facility] - Rivka Type- Allergy Other Verified 09/28/24 07:48 Parabens albuterol AdvReac Mild thrush Verified 09/28/24 07:48 Family History Father CAD (coronary artery disease) Myocardial infarction Diabetes Heart disease Hypertension Brother Hypertension Diabetes Mother No problems noted. Surgical History (Reviewed 09/28/24 @ 08:16 b (more content not included)... Normal [facility] Eosinophil percentageOrdered By: Darwin Kruger on 09-28-2024 Eosinophils/100 WBC (Bld) 5.1 % High 0-5 [facility] Erythrocyte distribution wid th ratioOrdered By: Darwin Kruger on 09-28-2024 Erythrocyte distribution width (RBC) [Ratio] 13.3 % 11.6-14.6 [facility] Erythrocyte distribution wid th standard deviationOrdered By: Darwin Kruger on 09-28-2024 Erythrocyte distribution width (RBC) [Ratio] 45.4 fl High 35.1-43.9 [facility] Glomerular filtration rate ( GFR) estimation/1.73 sq m using serum, plasma, or whole bOrdered By: Darwin Kruger on 09-28-2024 GFR/1.73 sq M.predicted among non-blacks MDRD (S/P/Bld) [Vol rate/Area] 33 mL/min/{1.73_m2} Low >60 [facility] Comment on above: mL/min/1.73m2 CKD-EP I Creatinine Equation (2020) Hematocrit Auto (Bld) [Volum e fraction]Ordered By: Darwin Kruger on 09-28-2024 Hematocrit (Bld) [Volume fraction] 45.8 % 40-54 [facility] Hemoglobin measurementOrdere d By: Darwin Kruger on 09-28-2024 Hemoglobin (Bld) [Mass/Vol] 15.3 g/dL 13.0-16.5 [facility] Immature granulocytes/100 WB C Auto (Bld)Ordered By: Darwin Kruger on 09-28-2024 Immature granulocytes/100 WBC (Bld) 0.400 % 0.0-0.9 [facility] Comment on above: IG% - Immature Granu locytes (promyelocytes, myelocytes and metamyelocytes) > 1% indicates that a LEFT SHIFT is Present. Ketones Test strip Ql (U)Ord ered By: Darwin Kruger on 09-28-2024 Ketones Ql (U) Negative Negative [facility] Laboratory - Chemistry and C hemistry - challengeOrdered By: Darwin Kruger on 09-28-2024 AST [Catalytic activity/Vol] 28 U/L <38 [facility] Lipaseon 09-28-2024 Lipase [Catalytic activity/Vol] 52 U/L Normal 13-75 [facility] Comment on above: Result Comment: Thomas iraheta note: LIPASE revised reference range effective 22. New Lipase methodology. Expected to produce lower values than the previous assay method. NEW Reference Range: 13 - 75 U/L Performed By: #### L 500.4050, L100.0100, L501.2450 ####[facility] [address] [place], [address] Lipase measurementOrdered By : Darwin Kruger on 09-28-2024 Lipase [Catalytic activity/Vol] 52 U/L 13-75 [facility] Comment on above: Please note:LIPASE r evised reference range effective 22. New Lipase methodology. Expected to produce lower values than the previous assay method. NEW Reference Range: 13 - 75 U/L MCV (mean corpuscular volume ) determinationOrdered By: Darwin Kruger on 09-28-2024 MCV (RBC) [Entitic vol] 93.3 fL 80-94 [facility] Mean corpuscular hemoglobin (MCH) determinationOrdered By: Darwin Kruger on 09-28-2024 MCH (RBC) [Entitic mass] 31.2 pg 27.0-32.0 [facility] Mean corpuscular hemoglobin concentration (MCHC) determinationOrdered By: Darwin Kruger on 09-28-2024 MCHC (RBC) [Mass/Vol] 33.4 g/dL 32-[address] [facility] Mean platelet volume determi nationOrdered By: Darwin Kruger on 09-28-2024 Platelet mean volume (Bld) [Entitic vol] 10.5 fL 6.2-12.0 [facility] Microscopic analysis of urin e for red blood cells (RBC)Ordered By: Darwin Kruger on 09-28-2024 Microscopic analysis of urine for red blood cells (RBC) 25-50 SEEN /hpf 0- [facility] Monocyte percentageOrdered B y: Darwin Kruger on 09-28-2024 Monocytes/100 WBC (Bld) 10.4 % High 0-10 [facility] Mucus LM Ql (Urine sed)Order ed By: Darwin Kruger on 09-28-2024 Mucus Ql (Urine sed) 0 SEEN /hpf [facility] Neutrophil percentageOrdered By: Darwin Kruger on 09-28-2024 Neutrophils/100 WBC (Bld) 62.2 % 47-70 [facility] Nitrite Test strip Ql (U)Ord ered By: Darwin Kruger on 09-28-2024 Nitrite Ql (U) Negative Negative [facility] Nucleated red blood cell per centageOrdered By: Darwin Kruger on 09-28-2024 Nucleated RBC/100 WBC (Bld) [Ratio] 0 % 0-5 [facility] Platelet countOrdered By: Ricci Kruger on 09-28-2024 Platelets (Bld) [#/Vol] 164 10*3/uL 150-450 [facility] Potassium measurement (mass/ volume)Ordered By: Darwin Kruger on 09-28-2024 Potassium (Unsp spec) [Mass/Vol] 3.8 mmol/L 3.3-5.1 [facility] Protein Test strip Ql (U)Ord ered By: Darwin Kruger on 09-28-2024 Protein Ql (U) 100 mg/dl High Negative [facility] RBC Auto (Bld) [#/Vol]Ordere d By: Darwin Kruger on 09-28-2024 RBC (Bld) [#/Vol] 4.91 10*6/uL 4.6-6.2 [facility] Serum creatinine measurement (mass/volume)Ordered By: Darwin Kruger on 09-28-2024 Creatinine [Mass/Vol] 2.00 mg/dL High 0.70-1.[address] [facility] Serum globulin measurementOr dered By: Darwin Kruger on 09-28-2024 Globulin (S) [Mass/Vol] 2.8 g/dL 2.2-4.2 [facility] Serum glucose measurement (m ass/volume)Ordered By: Darwin Kruger on 09-28-2024 Glucose [Mass/Vol] 149 mg/dL High 70-99 [facility] Serum or plasma alanine villafuerte otransferase (ALT) measurementOrdered By: Darwin Kruger on 09-28-2024 ALT [Catalytic activity/Vol] 14 U/L <47 [facility] Serum or plasma albumin chase urement (mass/volume)Ordered By: Darwin Kruger on 09-28-2024 Albumin [Mass/Vol] 3.9 g/dL 3.4-4.8 [facility] Serum or plasma albumin/glob ulin mass ratioOrdered By: Darwin Kruger on 09-28-2024 Albumin/Globulin [Mass ratio] 1.4 {ratio} 0.9-2.4 [facility] Serum or plasma alkaline claudio sphatase measurementOrdered By: Darwin Kruger on 09-28-2024 ALP [Catalytic activity/Vol] 120 U/L 40-129 [facility] Serum or plasma calcium chase urement (mass/volume)Ordered By: Darwin Kruger on 09-28-2024 Calcium [Mass/Vol] 9.2 mg/dL 7.6-11.0 [facility] Serum or plasma urea nitroge n measurement (mass/volume)Ordered By: Darwin Kruger on 09-28-2024 Urea nitrogen [Mass/Vol] 26 mg/dL High 4-19 [facility] Sodium levelOrdered By: Ade Kruger on 09-28-2024 Sodium [Moles/Vol] 141 mmol/L 133-145 [facility] Squamous epithelial cells de tection in urine sediment by light microscopyOrdered By: Darwin Kruger on 09-28-2024 Epithelial cells.squamous LM Ql (Urine sed) 0 SEEN /hpf 0-5 [facility] Total proteinOrdered By: Jonas Kruger on 09-28-2024 Protein [Mass/Vol] 6.7 g/dL 5.9-8.4 [facility] Urinalysis, Completeon 09-28 WBC 0-5 SEEN Normal 0-5 [facility] Comment on above: Order Comment: COLOR OF URINE MAY AFFECT DIPSTICK RESULTS. CLEAN CATCH Performed By: #### M 100.2200, L400.0001 #### [facility] [address] [place], [address] RBC 25-50 SEEN Normal 0-5 [facility] Comment on above: Order Comment: COLOR OF URINE MAY AFFECT DIPSTICK RESULTS. CLEAN CATCH Performed By: #### M 100.2200, L400.0001 #### [facility] [address] [place], [address] BACTERIA 0 SEEN Normal None Seen [facility] Comment on above: Order Comment: COLOR OF URINE MAY AFFECT DIPSTICK RESULTS. CLEAN CATCH Performed By: #### M 100.2200, L400.0001 #### [facility] [address] [place], [address] EPI,SQUAMOUS 0 SEEN Normal 0-5 [facility] Comment on above: Order Comment: COLOR OF URINE MAY AFFECT DIPSTICK RESULTS. CLEAN CATCH Performed By: #### M 100.2200, L400.0001 #### [facility] [address] [place], [address] Mucus Ql (Urine sed) 0 SEEN Normal [facility] Comment on above: Order Comment: COLOR OF URINE MAY AFFECT DIPSTICK RESULTS. CLEAN CATCH Performed By: #### M 100.2200, L400.0001 #### [facility] [address] [place], [address] Urine clarityOrdered By: Jonas Kruger on 09-28-2024 Clarity (U) Sl. Cloudy Clear [facility] Urine color determinationOrd ered By: Darwin Kruger on 09-28-2024 Color (U) Red Yellow [facility] Urine cultureOrdered By: Jonas Kruger on 09-28-2024 Bacteria identified Cx Nom (U) Culture exhibits no growth. [facility] Urine glucose detectionOrder ed By: Darwin Kruger on 09-28-2024 Glucose Ql (U) 1000 mg/dl High Normal [facility] Urine leukocyte esterase det ection by dipstickOrdered By: Darwin Kruger on 09-28-2024 Leukocyte esterase Test strip Ql (U) 25 /ul High Negative [facility] Urine pHOrdered By: Darwin dalton on 09-28-2024 pH (U) 7.0 [pH] 5.0 - 8.0 [facility] Urine sediment bacteria coun t by microscopy (number/high power field)Ordered By: Darwin Kruger on 09-28-2024 Bacteria LM.HPF (Urine sed) [#/Area] 0 /[HPF] None Seen [facility] Urine specific gravity measu rementOrdered By: Darwin Kruger on 09-28-2024 Specific gravity (U) [Rel density] 1.010 1.002-1.030 [facility] Urine urobilinogen measureme ntOrdered By: Darwin Kruger on 09-28-2024 Urobilinogen Ql (U) Normal mg/dl Normal [facility] White blood cell (WBC) count Ordered By: Darwin Kruger on 09-28-2024 WBC (Bld) [#/Vol] 6.9 10*3/uL 4.4-11.0 [facility] White blood cell countOrdere d By: Darwin Kruger on 09-28-2024 White blood cell count 0-5 SEEN /hpf 0-5 [facility] 12 Lead EKGon 09-25-2024 12 Lead EKG [facility] [address] [place] [address] 12 Lead EKG 09/25/24 0434 MR#: [id number] Acct: [id number] Name: KIMBERLY NAVA Rep #: [id number] : 1945 79 From: Edu Dodson MD Attending Dr: Dr. Cory Conteh MD Status: DIS CHINTAN Ordering Dr: Kasi Alexandre MD Date: 09/25/24 [place] [facility] [place] Sex: M C Admitted: 09/23/24 Test Reason : PRE OP Blood Pressure : */* mmHG Vent. 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 Kasi Alexandre MD; Dr. Kobi Adair MD; Dr. Cory Conteh MD Signed Normal [facility] Absolute lymphocyte countOrd ered By: Kasi Alexandre on 09-25-2024 Lymphocytes Auto (Unsp spec) [#/Vol] 1.80 10*3/uL 0.83-4.51 [facility] Absolute neutrophil countOrd ered By: Kasi Alexandre on 09-25-2024 Neutrophils (Bld) [#/Vol] 3.3 10*3/uL 2.0-7.7 [facility] Anion gap in Serum or Plasma Ordered By: Kasi Alexandre on 09-25-2024 Anion gap [Moles/Vol] 13 mmol/L 08-[address] [facility] Automated lymphocyte count a s percentage of total leukocytesOrdered By: Kasi Alexandre on 09-25-2024 Lymphocytes/100 WBC Auto (Unsp spec) 29.4 % [facility] BUN/creatinine ratioOrdered By: Kasi Alexandre on 09-25-2024 Urea nitrogen/Creatinine [Mass ratio] 13.6 mg/mg 01-25 [facility] Basic Metabolic Profile (BMP )on 09-25-2024 BUN/CRE 13.6 RATIO Normal 01-25 [facility] Comment on above: Performed By: #### M 100.2200, L400.0001 #### [facility] [address] [place], [address] Calcium [Mass/Vol] 8.6 mg/dL Normal 7.6-11.0 [facility] Comment on above: Performed By: #### M 100.2200, L400.0001 #### [facility] [address] [place], [address] Chloride [Moles/Vol] 104 mmol/L Normal 98-108 [facility] Comment on above: Performed By: #### M 100.2200, L400.0001 #### [facility] [address] [place], [address] CO2 [Moles/Vol] 22.7 mmol/L Normal 21.0-32.0 [facility] Comment on above: Performed By: #### M 100.2200, L400.0001 #### [facility] [address] [place], [address] Creatinine [Mass/Vol] 2.34 mg/dL High 0.70-1.[address] [facility] Comment on above: Performed By: #### M 100.2200, L400.0001 #### [facility] [address] [place], [address] ECRCL 28.37 ml/min Low 50-250 [facility] Comment on above: Performed By: #### M 100.2200, L400.0001 #### [facility] [address] [place], [address] GAP 13 Normal 5-15 [facility] Comment on above: Performed By: #### M 100.2200, L400.0001 #### [facility] [address] [place], [address] GFR/1.73 sq M.predicted among non-blacks MDRD (S/P/Bld) [Vol rate/Area] 28 mL/min/{1.73_m2} Low >60 [facility] Comment on above: Result Comment: mL/m in/1.73m2 CKD-EPI Creatinine Equation (2020) Performed By: #### M 100.2200, L400.0001 #### [facility] [address] [place], [address] Glucose [Mass/Vol] 122 mg/dL High 70-99 [facility] Comment on above: Performed By: #### M 100.2200, L400.0001 #### [facility] [address] [place], [address] Potassium [Moles/Vol] 3.8 mmol/L Normal 3.3-5.[address] [facility] Comment on above: Performed By: #### M 100.2200, L400.0001 #### [facility] [address] [place], [address] Sodium [Moles/Vol] 139 mmol/L Normal 133-145 [facility] Comment on above: Performed By: #### M 100.2200, L400.0001 #### [facility] [address] [place], [address] Urea nitrogen [Mass/Vol] 32 mg/dL High 4-19 [facility] Comment on above: Performed By: #### M 100.2200, L400.0001 #### [facility] [address] [place], [address] Basophil percentageOrdered B y: Kasi Alexandre on 09-25-2024 Basophils/100 WBC (Bld) 0.7 % 0-1 [facility] CBC W/Diff, Automatedon 09-07-2024 Absolute Lymph 1.80 X10 3/uL Normal 0.83-4.51 [facility] Comment on above: Performed By: #### M 100.2200, L400.0001 #### [facility] [address] [place], [address] Absolute Neut 3.3 X10 3/uL Normal 2.0-7.7 [facility] Comment on above: Performed By: #### M 100.2200, L400.0001 #### [facility] [address] [place], [address] Basophils/100 WBC (Bld) 0.7 % Normal 0-1 [facility] Comment on above: Performed By: #### M 100.2200, L400.0001 #### [facility] [address] [place], [address] Eosinophils/100 WBC (Bld) 4.4 % Normal 0-5 [facility] Comment on above: Performed By: #### M 100.2200, L400.0001 #### [facility] [address] [place], [address] Erythrocyte distribution width (RBC) [Ratio] 13.5 % Normal 11.6-14.6 [facility] Comment on above: Performed By: #### M 100.2200, L400.0001 #### [facility] [address] [place], [address] Hematocrit (Bld) [Volume fraction] 41.8 % Normal 40-54 [facility] Comment on above: Performed By: #### M 100.2200, L400.0001 #### [facility] [address] [place], [address] Hemoglobin (Bld) [Mass/Vol] 14.0 g/dL Normal 13.0-16.5 [facility] Comment on above: Performed By: #### M 100.2200, L400.0001 #### [facility] [address] [place], [address] IG% 0.200 Normal 0.0-0.9 [facility] Comment on above: Result Comment: IG% - Immature Granulocytes (promyelocytes, myelocytes and metamyelocytes) > 1% indicates that a LEFT SHIFT is Present. Performed By: #### M 100.2200, L400.0001 #### [facility] [address] [place], [address] Lymphocytes/100 WBC (Bld) 29.4 % Normal 19-41 [facility] Comment on above: Performed By: #### M 100.2200, L400.0001 #### [facility] [address] [place], [address] MCH (RBC) [Entitic mass] 31.6 pg Normal 27.0-32.0 [facility] Comment on above: Performed By: #### M 100.2200, L400.0001 #### [facility] [address] [place], [address] MCHC (RBC) [Mass/Vol] 33.5 g/dL Normal 32-[address] [facility] Comment on above: Performed By: #### M 100.2200, L400.0001 #### [facility] [address] [place], [address] MCV (RBC) [Entitic vol] 94.4 fL High 80-94 [facility] Comment on above: Performed By: #### M 100.2200, L400.0001 #### [facility] [address] [place], [address] Monocytes/100 WBC (Bld) 11.6 % High 0-10 [facility] Comment on above: Performed By: #### M 100.2200, L400.0001 #### [facility] [address] [place], [address] Neutrophils/100 WBC (Bld) 53.7 % Normal 47-70 [facility] Comment on above: Performed By: #### M 100.2200, L400.0001 #### [facility] [address] [place], [address] Nucleated RBC (Bld) [#/Vol] 0 10*3/uL Normal 0-5 [facility] Comment on above: Performed By: #### M 100.2200, L400.0001 #### [facility] [address] [place], [address] Platelet mean volume (Bld) [Entitic vol] 10.7 fL Normal 6.2-12.0 [facility] Comment on above: Performed By: #### M 100.2200, L400.0001 #### [facility] [address] [place], [address] Platelets (Bld) [#/Vol] 129 10*3/uL Low 150-450 [facility] Comment on above: Performed By: #### M 100.2200, L400.0001 #### [facility] [address] [place], [address] RBC (Bld) [#/Vol] 4.43 10*6/uL Low 4.6-6.2 [facility] Comment on above: Performed By: #### M 100.2200, L400.0001 #### [facility] [address] [place], [address] RDW SD 47.7 fl High 35.1-43.9 [facility] Comment on above: Performed By: #### M 100.2200, L400.0001 #### [facility] [facility] [address] [place], [address] WBC (Bld) [#/Vol] 6.1 10*3/uL Normal 4.4-11.0 [facility] Comment on above: Performed By: #### M 100.2200, L400.0001 #### [facility] [address] [place], [address] Carbon dioxide, total [Moles /volume] in Central venous bloodOrdered By: Kasi Alexandre on 09-25-2024 CO2 [Moles/Vol] 22.7 mmol/L 21.0-32.0 [facility] Chloride assayOrdered By: Gume on 09-25-2024 Chloride [Moles/Vol] 104 mmol/L 98-108 [facility] Eosinophil percentageOrdered By: Kasi Alexandre on 09-25-2024 Eosinophils/100 WBC (Bld) 4.4 % 0-5 [facility] Erythrocyte distribution wid th ratioOrdered By: Kasi Alexandre on 09-25-2024 Erythrocyte distribution width (RBC) [Ratio] 13.5 % 11.6-14.6 [facility] Erythrocyte distribution wid th standard deviationOrdered By: Kasi Alexandre on 09-25-2024 Erythrocyte distribution width (RBC) [Ratio] 47.7 fl High 35.1-43.9 [facility] Glomerular filtration rate ( GFR) estimation/1.73 sq m using serum, plasma, or whole bOrdered By: Kasi Alexandre on 09-25-2024 GFR/1.73 sq M.predicted among non-blacks MDRD (S/P/Bld) [Vol rate/Area] 28 mL/min/{1.73_m2} Low >60 [facility] Comment on above: mL/min/1.73m2 CKD-EP I Creatinine Equation (2020) Hematocrit Auto (Bld) [Volum e fraction]Ordered By: Kasi Alexandre on 09-25-2024 Hematocrit (Bld) [Volume fraction] 41.8 % 40-54 [facility] Hemoglobin A1con 09-25-2024 HbA1c (Bld) [Mass fraction] 7.0 % High <=5.6 [facility] Comment on above: Result Comment: Norm al < 5.7 % Prediabetic 5.7 - 6.4 % Diabetic >or= 6.5 % Please note range changes. Performed By: #### M 100.2200, L400.0001 #### [facility] [address] [place], [place], [address] Hemoglobin A1c percentageOrd ered By: Kasi Alexandre on 09-25-2024 HbA1c (Bld) [Mass fraction] 7.0 % High <5.7 [facility] Comment on above: Normal < 5.7 % Predi abetic 5.7 - 6.4 % Diabetic >or= 6.5 % Please note range changes. Hemoglobin measurementOrdere d By: Kasi Alexandre on 09-25-2024 Hemoglobin (Bld) [Mass/Vol] 14.0 g/dL 13.0-16.5 [facility] Immature granulocytes/100 WB C Auto (Bld)Ordered By: Kasi Alexandre on 09-25-2024 Immature granulocytes/100 WBC (Bld) 0.200 % 0.0-0.9 [facility] Comment on above: IG% - Immature Granu locytes (promyelocytes, myelocytes and metamyelocytes) > 1% indicates that a LEFT SHIFT is Present. MCV (mean corpuscular volume ) determinationOrdered By: Kasi Alexandre on 09-25-2024 MCV (RBC) [Entitic vol] 94.4 fL High 80-94 [facility] MR/POSTOP.ANEon 09-25-2024 MR/POSTOP.ANE [facility] Medical Records Department [address] [place] [address] Anesthesia Postop Eval I 09/25/24 1223 MR#: [id number] Acct: [id number] Name: KIMBERLY NAVA Rep #: [id number] : 1945 79 From: Fran Gates CRNA PCP: Dr. Kobi Adair MD Status:ADM CHINTAN Y Race: C Location: [place] [address] Anesthesia: Postop Eval I Current Vital Signs Temperature: 97.4 F Pulse Rate: 84 Blood Pressure: 87/60 Respiratory Rate: 16 Pulse Ox: 93 Oxygen Delivery Method: Room Air Assessment Airway patent: Yes Spontaneous unlabored respirations: Yes Mental status: Awake and Calm nausea: No Vomiting: No Anesthesia Complication: No Fluid Hydration Crystalloid volume administer (ml): 900 Total IV fluid infused: 900 Progress Note Anesthesia document: Postop Eval 1 completed: Yes 09/25/24 1226 Date Fran Gates CRNA Cosigner Signature: Date CC: Signed Normal [facility] MR/[id number] 09-25-2024 [facility] Medical Records Department [address] [place] [address] Anesthesia Postop Eval II 09/25/24 1547 MR#: [id number] Acct: [id number] Name: KIMBERLY NAVA Rep #: [id number] : 1945 79 From: Allison Evangelista CRNA PCP: Dr. Kobi Adair MD Status:ADM CHINTAN Y Race: C Location: [place] [address] Anesthesia Postop Eval I Sum Postop Eval Completion status Anesthesia document: Postop Eval 1 completed: Yes Anesthesia Postop Eval I Summary Anesthesia Postop Eval I Summary: Anesthesia Postop Eval I: Assessment Summary Airway patent Yes 09/25/24 12:26 SIGNAL FITTER.MDOT Spontaneous unlabored Yes 09/25/24 12:26 SIGNAL FITTER.MDOT respirations Mental status Awake,Calm 09/25/24 12:26 SIGNAL FITTER.MDOT nausea No 09/25/24 12:26 SIGNAL FITTER.MDOT Vomiting No 09/25/24 12:26 SIGNAL FITTER.MDOT Anesthesia Postop Eval I: Fluid Summary Crystalloid volume administer 900 09/25/24 12:26 SIGNAL FITTER.PETRONA (ml) Colloids volume administered ( ml) Blood Product volume administered (ml) Total IV fluid infused 900 09/25/24 12:26 SIGNAL FITTER.OT Anesthesia Postop Eval I: Summary Notes Anesthesia Complication No 09/25/24 12:26 SIGNAL FITTER.MDOT Anesthesia Complication Comment: Post-operative progress note Anesthesia: Postop Eval II Evaluation Mental status: Awake Pain Level: 2 nausea: No Vomiting: No 09/25/24 1547 Date Allison Evangelista SIGNAL FITTER Cosigner Signature: Date CC: Signed Normal [facility] Mean corpuscular hemoglobin (MCH) determinationOrdered By: Kasi Alexandre on 09-25-2024 MCH (RBC) [Entitic mass] 31.6 pg 27.0-32.0 [facility] Mean corpuscular hemoglobin concentration (MCHC) determinationOrdered By: Kasi Alexandre on 09-25-2024 MCHC (RBC) [Mass/Vol] 33.5 g/dL 32-[address] [facility] Mean platelet volume determi nationOrdered By: Kasi Alexandre on 09-25-2024 Platelet mean volume (Bld) [Entitic vol] 10.7 fL 6.2-12.0 [facility] Monocyte percentageOrdered B y: Kasi Alexandre on 09-25-2024 Monocytes/100 WBC (Bld) 11.6 % High 0-10 [facility] Neutrophil percentageOrdered By: Kasi Alexandre on 09-25-2024 Neutrophils/100 WBC (Bld) 53.7 % 47-70 [facility] Nucleated red blood cell per centageOrdered By: Kasi Alexandre on 09-25-2024 Nucleated RBC/100 WBC (Bld) [Ratio] 0 % 0-5 [facility] Operative Reporton 5 Operative Report [facility] Medical Records Department [address] [place] [address] Operative Report 09/25/24 1219 MR#: [id number] Acct: [id number] Name: KIMBERLY NAVA Rep #: [id number] : 1945 79 From: Cory Conteh MD PCP: Dr. Kobi Adair MD Status:ADM CHINTAN Location: [place] [address] Operative Report (Standard) Operative Information Date of Procedure: 09/25/24 Pre-Operative Diagnosis: Distal left ureteral calculi Post-Operative Diagnosis: Impacted stone in the distal left ureter Surgery/Procedure Performed: Cystoscopy, left retrograde pyelogram, balloon dilation of left ureter, left ureteroscopy laser lithotripsy of stone and left stent family life counselor: No Type of Anesthesia: General RN Documented Start/Stop Times: Operation Date: 09/25/24 10:00 Case Time Into Pre-Op 09/25/24 09:05 Out of Pre-Op 09/25/24 10:49 Anesthesia Start 09/25/24 10:56 Into Room 09/25/24 10:56 Procedure Start 09/25/24 11:15 Procedure End 09/25/24 12:15 Procedure Start Time: 11:15 Procedure Stop Time: 12:20 Select all DRAINS/GRAFTS/IMPLANTS that apply: Drains Drain details: 6 Gabonese by 26 cm stent Estimated Blood Loss: None Specimen collected: No Description of surgery: Patient was taken back to the operating room after smooth induction of anesthesia he was placed in dorsolithotomy position went in the bladder with a 21 Gabonese rigid cystourethroscope he had a very large obstructive prostate inside the bladder I cannulated the left ureter orifice with a Glidewire I then balloon dilated the distal left ureter then under fluoroscopy I saw that the ureter would not coil the wire would not go past the stone we attempted multiple times with no success I then left the wire in place and then over the wire went in with a flexible ureteroscope after we balloon dilated the distal ureter I then was able to get up to the stone he could see the stone completely impacted in the ureter I then used a 200 ???m thulium laser fiber with energy settings of 6 Hz and 0.6 J and very slowly and very carefully started lasering the stone try and stay in the middle to avoid lasering the torre of the ureter as a laser this took a long time to finally free up the stone and several fragments and then finally broke loose from the impacted ureter I then lasered all the remaining fragments increase the fiber settings to 10 Hz and 1.0 J and finished lasering the stones completely into little tiny pieces that were quite real way up to the kidney no other stones were seen few tiny fragments up in the kidney all the stones been lasered completely and the smaller fragment that should pass on their own I then worked my way down the ureter put a wire up through the ureteroscope went to the distal ureter no other major fragments seen and then backed out of the ureter then over the wire I placed a stent was a 6 Gabonese by 26 cm stent advanced a stent in the good position once in good position the stent coiled in the kidney and bladder good position patient ascetic reversed plan to see him back next for cystoscopy stent removal in the office he will go home today. He will go home with antibiotics and his pain medicine. Surgical Findings: Stone impacted in the distal left ureter retrograde pyelogram none of the contrast will go past the stone completely impacted Complications Complications: No Admit VTE Documentation VTE Present on Admission: No VTE Mechan Device Prophylaxis: SCD's VTE Pharm Prophylaxis ordered?: No 09/25/24 1223 Cosigner Signature (if applicable): CC: Dr. Kobi Adair MD; Dr. Cory Conteh MD Signed Normal [facility] Platelet countOrdered By: Gume on 09-25-2024 Platelets (Bld) [#/Vol] 129 10*3/uL Low 150-450 [facility] Potassium measurement (mass/ volume)Ordered By: Kasi Alexandre on 09-25-2024 Potassium (Unsp spec) [Mass/Vol] 3.8 mmol/L 3.3-5.1 [facility] RBC Auto (Bld) [#/Vol]Ordere d By: Kasi Alexandre on 09-25-2024 RBC (Bld) [#/Vol] 4.43 10*6/uL Low 4.6-6.2 [facility] Serum creatinine measurement (mass/volume)Ordered By: Kasi Alexandre on 09-25-2024 Creatinine [Mass/Vol] 2.34 mg/dL High 0.70-1.[address] [facility] Serum glucose measurement (m ass/volume)Ordered By: Kasi Alexandre on 09-25-2024 Glucose [Mass/Vol] 122 mg/dL High 70-99 [facility] Serum or plasma calcium chase urement (mass/volume)Ordered By: Kasi Alexandre on 09-25-2024 Calcium [Mass/Vol] 8.6 mg/dL 7.6-11.0 [facility] Serum or plasma urea nitroge n measurement (mass/volume)Ordered By: Kasi Alexandre on 09-25-2024 Urea nitrogen [Mass/Vol] 32 mg/dL High 4-19 [facility] Sodium levelOrdered By: Rubens Alexandre on 09-25-2024 Sodium [Moles/Vol] 139 mmol/L 133-145 [facility] White blood cell (WBC) count Ordered By: Kasi Alexandre on 09-25-2024 WBC (Bld) [#/Vol] 6.1 10*3/uL 4.4-11.0 [facility] Abd Decub and/or Erect([facility] 09-24-2024 Abd Decub and/or Erect([facility] [address] [place], [place] [address] Abd Decub and/or Erect([facility] MR#: [id number] Acct: [id number] Name: KIMBERLY NAVA Rep #: [id number] : 1945 M 79 From: Usama Manuel MD PCP: Dr. Kobi Adair MD Status: ADM CHINTAN Study: Abd Decub and/or Erect([facility] Date of Exam: 0 09/24/24 Exam# [id number] Ordering Dr: Cory Conteh MD PROCEDURE: ABD DECUB AND/OR ERECT([facility] 09/24/2024 REASON FOR EXAM: KIDNEY STONE TECHNIQUE: ABD DECUB AND/OR ERECT(PORTABL COMPARISON: September 23, 2024 CT FINDINGS: Bowel gas: Nonobstructive bowel gas pattern Calcifications: There is a 9 mm stone overlying the left SI joint which corresponds with the left ureteral stone seen on the recent CT in this region. Bones: There is no acute bony abnormality. Dextroscoliosis of the lumbar spine is noted. Other: Phleboliths are noted in the pelvis. Vascular calcifications are visible. RAD/Abd Decub and/or Erect([facility] IMPRESSION: There is a 9 mm ureteral stone overlying the left SI joint which corresponds with the left ureteral stone seen on the recent CT in this region. Reading Location: [facility] CC: Dr. Kobi Adair MD; Dr. Cory Conteh MD Psychopaedic Nurse: Signed Normal [facility] Abdomen/Pelvis without Conto n 09-23-2024 Abdomen/Pelvis without Cont [facility] Imaging Services [address] [place] [address] Abdomen/Pelvis without Cont MR#: [id number] Acct: [id number] Name: KIMBERLY NAVA Rep #: [id number] : 1945 M 79 From: Nick Pretty MD PCP: Dr. Kobi Adair MD Status: REG ER Study: Abdomen/Pelvis without Cont Date of Exam: 09/06 11/30 Exam# [id number] Ordering Dr: Marco Antonio Vazquez DO PROCEDURE: ABDOMEN/PELVIS WITHOUT CONT 09/23/2024 [...] Left distal ureter 6 mm calculus with sgtkjpqv-mg-vaigar upstream hydroureteronephrosis Severely enlarged prostate. The urinary bladder is unremarkable. Normal caliber large and small bowel. CT/Abdomen/Pelvis without Cont IMPRESSION: Left distal ureter 6 mm calculus with cgrpnpap-dv-gtuknw upstream hydroureteronephrosis. Severe prostatomegaly. Reading Location: [place] [address] CC: Dr. Kobi Adair MD; Dr. Marco Antonio Vazquez DO Psychopaedic Nurse: Signed Normal [facility] Absolute lymphocyte countOrd ered By: ED PROVIDER on 09-23-2024 Lymphocytes Auto (Unsp spec) [#/Vol] 1.07 10*3/uL 0.83-4.51 [facility] Absolute neutrophil countOrd ered By: ED PROVIDER on 09-23-2024 Neutrophils (Bld) [#/Vol] 5.0 10*3/uL 2.0-7.7 [facility] Anion gap in Serum or Plasma Ordered By: ED PROVIDER on 09-23-2024 Anion gap [Moles/Vol] 15 mmol/L 5-[address] [facility] Automated lymphocyte count a s percentage of total leukocytesOrdered By: ED PROVIDER on 09-23-2024 Lymphocytes/100 WBC Auto (Unsp spec) 15.4 % Low 19-41 [facility] BUN/creatinine ratioOrdered By: ED PROVIDER on 09-23-2024 Urea nitrogen/Creatinine [Mass ratio] 16.3 mg/mg 10-20 [facility] Basophil percentageOrdered B y: ED PROVIDER on 09-23-2024 Basophils/100 WBC (Bld) 0.6 % 0-1 [facility] Bilirubin Test strip Ql (U)O rdered By: Marco Antonio Vazquez on 09-23-2024 Bilirubin Ql (U) Negative Negative [facility] Bilirubin, totalOrdered By: ED PROVIDER on 09-23-2024 Bilirubin [Mass/Vol] 1.07 mg/dL 0.00-1.30 [facility] CBC W/Diff, Automatedon 09-06 Absolute Lymph 1.07 X10 3/uL Normal 0.83-4.51 [facility] Comment on above: Performed By: #### L 501.2450, L500.4050, L100.0100 ####[facility] [address] [place], [address] Absolute Neut 5.0 X10 3/uL Normal 2.0-7.7 [facility] Comment on above: Performed By: #### L 501.2450, L500.4050, L100.0100 ####[facility] [address] [place], [address] Basophils/100 WBC (Bld) 0.6 % Normal 0-1 [facility] Comment on above: Performed By: #### L 501.2450, L500.4050, L100.0100 ####[facility] [address] [place], [address] Eosinophils/100 WBC (Bld) 2.4 % Normal 0-5 [facility] Comment on above: Performed By: #### L 501.2450, L500.4050, L100.0100 ####[facility] [address] [place], [address] Erythrocyte distribution width (RBC) [Ratio] 13.4 % Normal 11.6-14.6 [facility] Comment on above: Performed By: #### L 501.2450, L500.4050, L100.0100 ####[facility] [address] [place], [address] Hematocrit (Bld) [Volume fraction] 48.6 % Normal 40-54 [facility] Comment on above: Performed By: #### L 501.2450, L500.4050, L100.0100 ####[facility] [address] [place], [address] Hemoglobin (Bld) [Mass/Vol] 16.2 g/dL Normal 13.0-16.5 [facility] Comment on above: Performed By: #### L 501.2450, L500.4050, L100.0100 ####[facility] [address] [place], [address] IG% 0.300 Normal 0.0-0.9 [facility] Comment on above: Result Comment: IG% - Immature Granulocytes (promyelocytes, myelocytes and metamyelocytes) > 1% indicates that a LEFT SHIFT is Present. Performed By: #### L 501.2450, L500.4050, L100.0100 ####[facility] [address] [place], [address] Lymphocytes/100 WBC (Bld) 15.4 % Low 19-41 [facility] Comment on above: Performed By: #### L 501.2450, L500.4050, L100.0100 ####[facility] [address] [place], [address] MCH (RBC) [Entitic mass] 31.2 pg Normal 27.0-32.0 [facility] Comment on above: Performed By: #### L 501.2450, L500.4050, L100.0100 ####[facility] [address] [place], [address] MCHC (RBC) [Mass/Vol] 33.3 g/dL Normal 32-[address] [facility] Comment on above: Performed By: #### L 501.2450, L500.4050, L100.0100 ####[facility] [address] [place], [address] MCV (RBC) [Entitic vol] 93.5 fL Normal 80-94 [facility] Comment on above: Performed By: #### L 501.2450, L500.4050, L100.0100 ####[facility] [address] [place], [address] Monocytes/100 WBC (Bld) 9.1 % Normal 0-10 [facility] Comment on above: Performed By: #### L 501.2450, L500.4050, L100.0100 ####[facility] [address] [place], [address] Neutrophils/100 WBC (Bld) 72.2 % High 47-70 [facility] Comment on above: Performed By: #### L 501.2450, L500.4050, L100.0100 ####[facility] [address] [place], [address] Nucleated RBC (Bld) [#/Vol] 0 10*3/uL Normal 0-5 [facility] Comment on above: Performed By: #### L 501.2450, L500.4050, L100.0100 ####[facility] [address] [place], [address] Platelet mean volume (Bld) [Entitic vol] 10.5 fL Normal 6.2-12.0 [facility] Comment on above: Performed By: #### L 501.2450, L500.4050, L100.0100 ####[facility] [address] [place], [address] Platelets (Bld) [#/Vol] 150 10*3/uL Normal 150-450 [facility] Comment on above: Performed By: #### L 501.2450, L500.4050, L100.0100 ####[facility] [address] [place], [address] RBC (Bld) [#/Vol] 5.20 10*6/uL Normal 4.6-6.2 [facility] Comment on above: Performed By: #### L 501.2450, L500.4050, L100.0100 ####[facility] [address] [place], [address] RDW SD 45.6 fl High 35.1-43.9 [facility] Comment on above: Performed By: #### L 501.2450, L500.4050, L100.0100 ####[facility] [address] [place], [address] WBC (Bld) [#/Vol] 7.0 10*3/uL Normal 4.4-11.0 [facility] Comment on above: Performed By: #### L 501.2450, L500.4050, L100.0100 ####[facility] [address] [place], [address] Carbon dioxide, total [Moles /volume] in Central venous bloodOrdered By: ED PROVIDER on 09-23-2024 CO2 [Moles/Vol] 23.1 mmol/L 21.0-32.0 [facility] Chloride assayOrdered By: ED PROVIDER on 09-23-2024 Chloride [Moles/Vol] 101 mmol/L 98-108 [facility] Comprehensive Metabolic Prof ilon 09-23-2024 Albumin [Mass/Vol] 4.3 g/dL Normal 3.4-4.8 [facility] Comment on above: Performed By: #### L 501.2450, L500.4050, L100.0100 ####[facility] [address] [place], [address] Albumin/Globulin [Mass ratio] 1.6 {ratio} Normal 0.9-2.4 [facility] Comment on above: Performed By: #### L 501.2450, L500.4050, L100.0100 ####[facility] [address] [place], [address] ALK PHOS 124 U/L Normal 40-129 [facility] Comment on above: Performed By: #### L 501.2450, L500.4050, L100.0100 ####[facility] [address] [place], [address] ALT [Catalytic activity/Vol] 13 U/L Normal <=46 [facility] Comment on above: Performed By: #### L 501.2450, L500.4050, L100.0100 ####[facility] [address] [place], [address] AST [Catalytic activity/Vol] 23 U/L Normal <=37 [facility] Comment on above: Performed By: #### L 501.2450, L500.4050, L100.0100 ####[facility] [address] [place], [address] Bilirubin [Mass/Vol] 1.07 mg/dL Normal 0.00-1.30 [facility] Comment on above: Performed By: #### L 501.2450, L500.4050, L100.0100 ####[facility] [address] [place], [address] BUN/CRE 16.3 RATIO Normal 10-20 [facility] Comment on above: Performed By: #### L 501.2450, L500.4050, L100.0100 ####[facility] [address] [place], [address] Calcium [Mass/Vol] 9.2 mg/dL Normal 7.6-11.0 [facility] Comment on above: Performed By: #### L 501.2450, L500.4050, L100.0100 ####[facility] [address] [place], [address] Chloride [Moles/Vol] 101 mmol/L Normal 98-108 [facility] Comment on above: Performed By: #### L 501.2450, L500.4050, L100.0100 ####[facility] [address] [place], [address] CO2 [Moles/Vol] 23.1 mmol/L Normal 21.0-32.0 [facility] Comment on above: Performed By: #### L 501.2450, L500.4050, L100.0100 ####[facility] [address] [place], [address] Creatinine [Mass/Vol] 2.08 mg/dL High 0.70-1.[address] [facility] Comment on above: Performed By: #### L 501.2450, L500.4050, L100.0100 ####[facility] [address] [place], [address] ECRCL 33.03 ml/min Low 50-250 [facility] Comment on above: Performed By: #### L 501.2450, L500.4050, L100.0100 ####[facility] [address] [place], [address] GAP 15 Normal 5-15 [facility] Comment on above: Performed By: #### L 501.2450, L500.4050, L100.0100 ####[facility] [address] [place], [address] GFR/1.73 sq M.predicted among non-blacks MDRD (S/P/Bld) [Vol rate/Area] 32 mL/min/{1.73_m2} Low >60 [facility] Comment on above: Result Comment: mL/m in/1.73m2 CKD-EPI Creatinine Equation (2020) Performed By: #### L 501.2450, L500.4050, L100.0100 ####[facility] [address] [place], [address] Globulin (S) [Mass/Vol] 2.7 g/dL Normal 2.2-4.2 [facility] Comment on above: Performed By: #### L 501.2450, L500.4050, L100.0100 ####[facility] [address] [place], [address] Glucose [Mass/Vol] 210 mg/dL High 70-99 [facility] Comment on above: Performed By: #### L 501.2450, L500.4050, L100.0100 ####[facility] [address] [place], [address] Potassium [Moles/Vol] 4.4 mmol/L Normal 3.3-5.[address] [facility] Comment on above: Performed By: #### L 501.2450, L500.4050, L100.0100 ####[facility] [address] [place], [address] Sodium [Moles/Vol] 138 mmol/L Normal 133-145 [facility] Comment on above: Performed By: #### L 501.2450, L500.4050, L100.0100 ####[facility] [address] [place], [address] T PROT 7.0 g/dL Normal 5.9-8.4 [facility] Comment on above: Performed By: #### L 501.2450, L500.4050, L100.0100 ####[facility] [address] [place], [address] Urea nitrogen [Mass/Vol] 34 mg/dL High 4-19 [facility] Comment on above: Performed By: #### L 501.2450, L500.4050, L100.0100 ####[facility] [address] [place], [address] Emergency Department Summary on 09-23-2024 Emergency Department Summary [facility] Medical Records Department [address] [place] [address] Emergency Department Summary 09/23/24 MR#: [id number] Acct: [id number] Name: KIMBERLY NAVA Rep #: [id number] : 1945 79 From: Marco Antonio Vazquez DO PCP: Dr. Kobi Adair MD Status:ADM CHINTAN Location: MS3 [id number] HPI HPI - GI History of Present Illness Chief Complaint: Abd Pain Informant: patient and spouse/S.O. Narrative Narrative: 79-year-old male presenting to the emergency room with a chief complaint of abdominal pain. Patient states he had a normal bowel movement yesterday morning. He states that he developed intermittent sharp pains in the left side of his abdomen yesterday after his bowel movement. He states he feels somewhat bound today. Denies urinary symptoms. He states he vomited in the bathroom after arriving here in the emergency. He denies any fever. No prior abdominal surgeries. He states he had colonoscopy which was normal. He states that he does not a history of diverticulitis or kidney stones. [facility] Medical History Former tobacco use History of [...] tablet 81 mg PO DAILY heart health 04/14/24 History atorvastatin 40 mg tablet 40 mg PO QHS cholesterol 03/10/13 04/13/24 History isosorbide mononitrate 30 mg 30 mg PO DAILY heart 03/10/1310/30 History tablet,extended release 24 hr levothyroxine 200 mcg tablet 200 mcg PO DAILY thyroid 03/10/13 04/14/24 History (Levoxyl) nitroglycerin 0.4 mg sublingual 0.4 mg sublingual Q5M PRN Chest 05/02/18 History tablet Pain sertraline 50 mg tablet 50 mg PO DAILY mental health 04/1405/02/18 History famotidine 10 mg tablet 10 mg PO BID reflux 02/18/2104/14 History semaglutide 0.25 mg or 0.5 mg (2 0.5 mg subcut TH diabetes 02/18/21 Unknown History mg/1.5 mL) subcutaneous pen injector (Ozempic) carbidopa ER 25 mg-levodopa 100 mg 1 tab PO QHS 04/14/24 04/13/24 H istory tablet,extended release multivitamin with iron 1 tab PO DAILY 04/14/24 04/14/24 H istory vit C 250 mg-vit E 90 mg-zinc 40 1 tab PO BID 04/14/24 04/14/24 His tory mg-copper 1 [id number] capsule (PreserVision AREDS-2) enoxaparin 40 mg/0.4 mL 40 mg (0.4 mL) subcut DAILY 30 01/30 Unknown Rx subcutaneous syringe days #12 mL furosemide 20 mg tablet 20 mg PO DAILY diuretic #30 tabs 0 04/17/24 04/14/24 Rx insulin glargine 100 unit/mL (3 40 unit (0.4 mL) subcut DAILY #30 04/17/24 04/14/24 Rx mL) subcutaneous pen (Lantus mL Solostar U-100 Insulin) metoprolol tartrate 25 mg tablet 12.5 mg (1/2 x 25 mg) PO BID 30 Unknown Rx days #30 tabs amlodipine 5 mg tablet 5 mg PO QDAY 05/01/24 Unknown Hist ory oxybutynin chloride 10 mg 10 mg PO QDAY 05/01/24 Unknown His tory tablet,extended release 24 hr Allergy/AdvReac Type Severity Reaction Status Date / Time Anesthetics - Amide Type - Allergy Other Verified 09/23/24 13:16 Select A Anesthetics - Rivka Type- Allergy Other Verified 09/23/24 13:16 Parabens albuterol AdvReac Mild thrush Verified 09/23/24 13:16 Family History Father CAD (coronary artery disease) Myocardial infarction Diabetes Heart disease Hypertension Brother Hypertension Diabetes Mother No problems noted. Surgical History S/P thyroidectomy S/P arthroscopic knee surgery S/P hemorrhoidectomy Hx of elbow surgery S/P CABG x 4 S/P coronary artery stent placement Hx of mitral valve repair Social History household members: spouse Smoking Status: Former smoker quit date: 09/26/73 pack-years: 5 how long ago did patient quit smoking: Additional chew tobacco use history, quit 01/15/2007. alcohol intake: never substance use type: does not use ROS ROS ED Constitutional Constitutional ED: Denies chills, fever(s) or weight loss Eyes Eyes: Denies change in vision or diplopia ENT ENT ED: Denies ear pain, rhinorrhea or sore throat Cardiovascular (more content not included)... Normal [facility] Eosinophil percentageOrdered By: ED PROVIDER on 09-23-2024 Eosinophils/100 WBC (Bld) 2.4 % 0-5 [facility] Erythrocyte distribution wid th ratioOrdered By: ED PROVIDER on 09-23-2024 Erythrocyte distribution width (RBC) [Ratio] 13.4 % 11.6-14.6 [facility] Erythrocyte distribution wid th standard deviationOrdered By: ED PROVIDER on 09-23-2024 Erythrocyte distribution width (RBC) [Ratio] 45.6 fl High 35.1-43.9 [facility] Glomerular filtration rate ( GFR) estimation/1.73 sq m using serum, plasma, or whole bOrdered By: ED PROVIDER on 09-23-2024 GFR/1.73 sq M.predicted among non-blacks MDRD (S/P/Bld) [Vol rate/Area] 32 mL/min/{1.73_m2} Low >60 [facility] Comment on above: mL/min/1.73m2 CKD-EP I Creatinine Equation (2020) Hematocrit Auto (Bld) [Volum e fraction]Ordered By: ED PROVIDER on 09-23-2024 Hematocrit (Bld) [Volume fraction] 48.6 % 40-54 [facility] Hemoglobin measurementOrdere d By: ED PROVIDER on 09-23-2024 Hemoglobin (Bld) [Mass/Vol] 16.2 g/dL 13.0-16.5 [facility] Immature granulocytes/100 WB C Auto (Bld)Ordered By: ED PROVIDER on 09-23-2024 Immature granulocytes/100 WBC (Bld) 0.300 % 0.0-0.9 [facility] Comment on above: IG% - Immature Granu locytes (promyelocytes, myelocytes and metamyelocytes) > 1% indicates that a LEFT SHIFT is Present. Ketones Test strip Ql (U)Ord ered By: Marco Antonio Vazquez on 09-23-2024 Ketones Ql (U) Negative Negative [facility] Laboratory - Chemistry and C hemistry - challengeOrdered By: ED PROVIDER on 09-23-2024 AST [Catalytic activity/Vol] 23 U/L <38 [facility] Lipaseon 09-23-2024 Lipase [Catalytic activity/Vol] 44 U/L Normal 13-75 [facility] Comment on above: Result Comment: Pledimas se note: LIPASE revised reference range effective 22. New Lipase methodology. Expected to produce lower values than the previous assay method. NEW Reference Range: 13 - 75 U/L Performed By: #### L 501.2450, L500.4050, L100.0100 ####[facility] [address] [place], [address] Lipase measurementOrdered By : ED PROVIDER on 09-23-2024 Lipase [Catalytic activity/Vol] 44 U/L 13-75 [facility] Comment on above: Please note:LIPASE r evised reference range effective 22. New Lipase methodology. Expected to produce lower values than the previous assay method. NEW Reference Range: 13 - 75 U/L MCV (mean corpuscular volume ) determinationOrdered By: ED PROVIDER on 09-23-2024 MCV (RBC) [Entitic vol] 93.5 fL 80-94 [facility] Mean corpuscular hemoglobin (MCH) determinationOrdered By: ED PROVIDER on 09-23-2024 MCH (RBC) [Entitic mass] 31.2 pg 27.0-32.0 [facility] Mean corpuscular hemoglobin concentration (MCHC) determinationOrdered By: ED PROVIDER on 09-23-2024 MCHC (RBC) [Mass/Vol] 33.3 g/dL 32-[address] [facility] Mean platelet volume determi nationOrdered By: ED PROVIDER on 09-23-2024 Platelet mean volume (Bld) [Entitic vol] 10.5 fL 6.2-12.0 [facility] Microscopic analysis of urin e for red blood cells (RBC)Ordered By: Marco Antonio Vazquez on 09-23-2024 Microscopic analysis of urine for red blood cells (RBC) 0-5 SEEN /hpf 0-5 [facility] Monocyte percentageOrdered B y: ED PROVIDER on 09-23-2024 Monocytes/100 WBC (Bld) 9.1 % 0-10 [facility] Mucus LM Ql (Urine sed)Order ed By: Marco Antonio Vazquez on 09-23-2024 Mucus Ql (Urine sed) 0 SEEN /hpf [facility] Neutrophil percentageOrdered By: ED PROVIDER on 09-23-2024 Neutrophils/100 WBC (Bld) 72.2 % High 47-70 [facility] Nitrite Test strip Ql (U)Ord ered By: Marco Antonio Vazquez on 09-23-2024 Nitrite Ql (U) Negative Negative [facility] Nucleated red blood cell per centageOrdered By: ED PROVIDER on 09-23-2024 Nucleated RBC/100 WBC (Bld) [Ratio] 0 % 0-5 [facility] Platelet countOrdered By: ED PROVIDER on 09-23-2024 Platelets (Bld) [#/Vol] 150 10*3/uL 150-450 [facility] Potassium measurement (mass/ volume)Ordered By: ED PROVIDER on 09-23-2024 Potassium (Unsp spec) [Mass/Vol] 4.4 mmol/L 3.3-5.1 [facility] Protein Test strip Ql (U)Ord ered By: Marco Antonio Vazquez on 09-23-2024 Protein Ql (U) 30 mg/dl High Negative [facility] RBC Auto (Bld) [#/Vol]Ordere d By: ED PROVIDER on 09-23-2024 RBC (Bld) [#/Vol] 5.20 10*6/uL 4.6-6.2 [facility] Serum creatinine measurement (mass/volume)Ordered By: ED PROVIDER on 09-23-2024 Creatinine [Mass/Vol] 2.08 mg/dL High 0.70-1.[address] [facility] Serum globulin measurementOr dered By: ED PROVIDER on 09-23-2024 Globulin (S) [Mass/Vol] 2.7 g/dL 2.2-4.2 [facility] Serum glucose measurement (m ass/volume)Ordered By: ED PROVIDER on 09-23-2024 Glucose [Mass/Vol] 210 mg/dL High 70-99 [facility] Serum or plasma alanine villafuerte otransferase (ALT) measurementOrdered By: ED PROVIDER on 09-23-2024 ALT [Catalytic activity/Vol] 13 U/L <47 [facility] Serum or plasma albumin chase urement (mass/volume)Ordered By: ED PROVIDER on 09-23-2024 Albumin [Mass/Vol] 4.3 g/dL 3.4-4.8 [facility] Serum or plasma albumin/glob ulin mass ratioOrdered By: ED PROVIDER on 09-23-2024 Albumin/Globulin [Mass ratio] 1.6 {ratio} 0.9-2.4 [facility] Serum or plasma alkaline claudio sphatase measurementOrdered By: ED PROVIDER on 09-23-2024 ALP [Catalytic activity/Vol] 124 U/L 40-129 [facility] Serum or plasma calcium chase urement (mass/volume)Ordered By: ED PROVIDER on 09-23-2024 Calcium [Mass/Vol] 9.2 mg/dL 7.6-11.0 [facility] Serum or plasma urea nitroge n measurement (mass/volume)Ordered By: ED PROVIDER on 09-23-2024 Urea nitrogen [Mass/Vol] 34 mg/dL High 4-19 [facility] Sodium levelOrdered By: ED Vianca OSBORNE on 09-23-2024 Sodium [Moles/Vol] 138 mmol/L 133-145 [facility] Squamous epithelial cells de tection in urine sediment by light microscopyOrdered By: Marco Antonio Vazquez on 09-23-2024 Epithelial cells.squamous LM Ql (Urine sed) 0-5 SEEN /hpf 0-5 [facility] Total proteinOrdered By: ED PROVIDER on 09-23-2024 Protein [Mass/Vol] 7.0 g/dL 5.9-8.4 [facility] Urinalysis, Completeon 09-23 EPI,SQUAMOUS 0-5 SEEN Normal 0-5 [facility] Comment on above: Order Comment: COLLE CTOR TO SPECIFY Performed By: #### M 100.2200, L400.0001 #### [facility] [address] [place], [address] RBC 0-5 SEEN Normal 0-5 [facility] Comment on above: Order Comment: COLLE CTOR TO SPECIFY Performed By: #### M 100.2200, L400.0001 #### [facility] [address] [place], [address] WBC 0-5 SEEN Normal 0-5 [facility] Comment on above: Order Comment: ENEDELIA CTOR TO SPECIFY Performed By: #### M 100.2200, L400.0001 #### [facility] [address] [place], [address] BACTERIA 0 SEEN Normal None Seen [facility] Comment on above: Order Comment: ENEDELIA CTOR TO SPECIFY Performed By: #### M 100.2200, L400.0001 #### [facility] [address] [place], [address] Mucus Ql (Urine sed) 0 SEEN Normal [facility] Comment on above: Order Comment: ENEDELIA CTOR TO SPECIFY Performed By: #### M 100.2200, L400.0001 #### [facility] [address] [place], [address] Urine clarityOrdered By: Pineda Vazquez on 09-23-2024 Clarity (U) Clear Clear [facility] Urine color determinationOrd ered By: Marco Antonio Vazquez on 09-23-2024 Color (U) Yellow Yellow [facility] Urine glucose detectionOrder ed By: Marco Antonio Vazquez on 09-23-2024 Glucose Ql (U) 1000 mg/dl High Normal [facility] Urine leukocyte esterase det ection by dipstickOrdered By: Marco Antonio Vazquez on 09-23-2024 Leukocyte esterase Test strip Ql (U) Negative Negative [facility] Urine pHOrdered By: Marco Antonio jacobo on 09-23-2024 pH (U) 7.0 [pH] 5.0 - 8.0 [facility] Urine sediment bacteria coun t by microscopy (number/high power field)Ordered By: Marco Antonio Vazquez on 09-23-2024 Bacteria LM.HPF (Urine sed) [#/Area] 0 /[HPF] None Seen [facility] Urine specific gravity measu rementOrdered By: Marco Antonio Vazquez on 09-23-2024 Specific gravity (U) [Rel density] 1.010 1.002-1.030 [facility] Urine urobilinogen measureme ntOrdered By: Marco Antonio Vazquez on 09-23-2024 Urobilinogen Ql (U) Normal mg/dl Normal [facility] White blood cell (WBC) count Ordered By: ED PROVIDER on 09-23-2024 WBC (Bld) [#/Vol] 7.0 10*3/uL 4.4-11.0 [facility] White blood cell countOrdere d By: Marco Antonio Vazquez on 09-23-2024 White blood cell count 0-5 SEEN /hpf 0-5 [facility] HIP, UNI W/ Pelvis 2-3 Views on 05-01-2024 HIP, UNI W/ Pelvis 2-3 Views [facility] [address] [place] [address] HIP, UNI W/ Pelvis 2-3 Views MR#: [id number] Acct: [id number] Name: KIMBERLY NAVA Rep #: [id number] : 1945 M 79 From: Kimberly Howe MD PCP: Dr. Kobi Adair MD Status: DEP AMB Study: HIP, UNI W/ Pelvis 2-3 Views Date of Exam: Exam# [id number] Ordering Dr: Janes Patel DO [id number] STUDY: X-RAY - PELVIS AND LEFT HIP REASON FOR EXAM: Male, 79 years old. Pain. Follow up. TECHNIQUE: 3 views of the pelvis and left hip. COMPARISON: Pelvis and left hip radiographs dated 04/14/2024. FINDINGS: There is a non-specific bowel gas pattern. There are mild atherosclerotic vascular calcifications of the femoral arteries. There are multiple calcified phleboliths. Normal bilateral iliac wings, sacroiliac joints and visualized sacrum. Normal bilateral superior and inferior pubic rami. Normal pubic symphysis. Normal bilateral ischial tuberosities. Intact visualized femoral heads bilaterally. Intact acetabula bilaterally. There is unchanged mild articular joint space narrowing of the hips bilaterally. There is no demonstrated acute fracture. 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 No demonstrated acute fracture. Electronically Signed: Kimberly Howe MD at 16:17 EST Reading Location ID and State: [address] [place] [address] , Service support , CC: Dr. Kobi Adair MD; Dr. Janes Patel DO Psychopaedic Nurse: Signed Normal [facility] Orthopedic Visit Reporton Orthopedic Visit Report [facility] [address] [place] [address] [address] [place] [address] OFFICE VISIT Date of Service: 05/01/24 MR#: [id number] Acct: [id number] Name: KIMBERLY NAVA Rep #: [id number] : 1945 Provider: Dr. Janes eubanks DO Age/Sex: 79/M [place] [facility] [place]: Signed Intake Vital Signs 04/15/24 14:48 05/01/24 09:41 Height 5 ft 7 in 5 ft 7 in Weight: 226 lb 2 oz BMI 35.4 Intake Visit Reasons: LEFT FEMUR Allergies Anesthetics - Amide Type - Select A Allergy (Verified 10/02/22 14:21) Other Anesthetics - Rivka Type- Parabens Allergy (Verified 10/02/22 14:21) Other albuterol Adverse Reaction (Mild, Verified 05/19/21 18:40) thrush Have you fallen in the past year?: Yes [facility] Medical History Former tobacco use History [...] Obesity Hypothyroid CHF (congestive heart failure) Hyperlipidemia Surgical History S/P thyroidectomy S/P arthroscopic knee surgery S/P hemorrhoidectomy Hx of elbow surgery S/P CABG x 4 S/P coronary artery stent placement Hx of mitral valve repair Family History Father CAD (coronary artery disease) Myocardial infarction Diabetes Heart disease Hypertension Brother Hypertension Diabetes Mother No problems noted. Social History household members: spouse Smoking Status: Former smoker quit date: 09/26/73 pack-years: 5 how long ago did patient quit smoking: Additional chew tobacco use history, quit 01/15/2007. alcohol intake: never substance use type: does not use HPI LEFT FEMUR Details: This documentation accurately reflects the service provided and the decisions made by me, Dr. Janes Patel, DO 05/01/24 0754. Part of today???s visit was documented by Bianca LAMBERT, acting as scribe. KIMBERLY NAVA is a 79 year old M here today for f/u from ED on left hip fx. He states that he went to take the trash out to the curb and turned around to go into his house and slipped and fell on the ice. Then the next day he was in the living room and fell. The next day is when he was having a lot of pain and called the ambulance. The initial injury was on 04/12/24 and he was seen in the ED on 04/14/24 He only has pain when he twists the hip. He doesn't have pain when he is walking. Patient does ambulate with a walker to help keep him steady. He denies having groin pain. He denies taking any medications for pain. Ortho Exam General General: Yes no acute distress Neurologic: Yes alert and Yes oriented x3 Psychologic: Yes reasonable and appropriate Left Hip Skin/Wound: No Ecchymosis, No soft tissue swelling and No Erythema Hip: Present tender to palpate -; Absent eccymosis, soft tissue swelling or erythema HIP: mild swelling in lower leg no significant bruising Neurovascular intact no gross motor or sensory deficits left lower extremity Supplemental Info 05/01/2024 x-ray left hip: Comminuted relatively nondisplaced greater trochanteric fracture 04/14/2024 CT scan left hip: Nondisplaced comminuted fracture of the greater trochanter Coding Level of Care Code Off vis,new,level 3 Diagnoses Closed nondisplaced fracture of greater trochanter of left femur, initial encounter S72.115A Encounter type: initial encounter Fracture type: closed Fracture alignment: nondisplaced Laterality: left Assessment and Plan Assessment and Plan (1) Fracture of greater trochanter: Status: Acute Qualifiers: Encounter type: initial encounter Fracture type: closed Fracture alignment: nondisplaced Laterality: left Qualified Code(s): S72.115A - Nondisplaced fracture of greater trochanter of left femur, initial encounter for closed fracture Orders: Orders HIP, UNI W/ Pelvis 2-3 Views Today S72.113A - Displaced fracture of greater trochanter of unspecified femur, initial encounter for closed fracture Medications: Discontinued oxycodone Discontinued Reason: Pt no longer taking 5 mg PO Q4H PRN 3 days PRN 15 tabs 0RF MODSEVPAIN S72.113A - Displaced fracture of greater trochanter of unspecified femur, initial encounter for closed fracture sennosides-docusate sodium 8.6-50 mg (Stimulant Laxative Plus) Discontinued [place] (more content not included)... Normal [facility] CBC (NO DIFF)on 04-21-2024 CBC panel Auto (Bld) Normal [facility] Comment on above: Result Comment: CBC( WITHOUT DIFFERENTIAL) Performed By: #### 2 [id number] #### [facility],[address] [place] [address] Erythrocyte distribution width (RBC) [Ratio] 13.8 % Normal 12.0 - 15.6 [facility] Comment on above: Performed By: #### 2 88758 #### [facility],[address] [place] [address] Hematocrit (Bld) [Volume fraction] 48.9 % Normal 40.0 - 52.0 [facility] Comment on above: Performed By: #### 2 75214 #### [facility],[address] [place] [address] Hemoglobin (Bld) [Mass/Vol] 16.3 g/dL Normal 13.0 - 17.5 [facility] Comment on above: Performed By: #### 2 38796 #### [facility],[address] [place] [address] 88487 MCH (RBC) [Entitic mass] 31 pg Normal 27 - 33 [facility] Comment on above: Performed By: #### 2 81393 #### [facility],[address] [place] [address]137 MCHC 33 X10 3 Normal 32 - 36 [facility] Comment on above: Performed By: #### 2 02802 #### [facility],[address] [place] [address] 18664 MCV (RBC) [Entitic vol] 93 fL Normal 81 - 98 [facility] Comment on above: Performed By: #### 2 67267 #### [facility],[address] [place] [address] 38323 PLATELET 206 x10EE3/UL Normal 150 - 450 [facility] Comment on above: Performed By: #### 2 46925 #### [facility],[address] [place] [address] 54302 Platelet mean volume (Bld) [Entitic vol] 8.3 fL Normal 6.4 - 10.5 [facility] Comment on above: Performed By: #### 2 21065 #### [facility],[address] [place] [address] 69500 RBC 5.27 x 10EE6/UL Normal 4.50 - 6.00 [facility] Comment on above: Performed By: #### 2 97288 #### [facility],[address] [place] [address] 05791 WBC 7.2 x 10EE3/UL Normal 4.5 - 10.8 [facility] Comment on above: Performed By: #### 2 25525 #### [facility],[address] [place] [address] 43416 CMP with eGFRon 04-21-2024 AGE 79 years Normal [facility] Comment on above: Performed By: #### 2 28190 #### [facility],[address] [place] [address] 55298 Albumin [Mass/Vol] 3.5 g/dL Normal 3.4 - 5.0 [facility] Comment on above: Performed By: #### 2 88336 #### [facility],[address] [place] [address] 25748 Albumin/Globulin [Mass ratio] 0.9 {ratio} Normal 0.9 - 1.6 [facility] Comment on above: Performed By: #### 2 99112 #### [facility],[address] [place] [address] 46686 ALK PHOS 104 U/L Normal 46 - 116 [facility] Comment on above: Performed By: #### 2 31897 #### [facility],[address] [place] [address] 22168 ALT [Catalytic activity/Vol] 12 U/L Low 16 - 63 [facility] Comment on above: Performed By: #### 2 14711 #### [facility],[address] [place] [address] 56301 Anion gap [Moles/Vol] 14 mmol/L Normal 10 - 20 [facility] Comment on above: Performed By: #### 2 58771 #### [facility],[address] [place] [address] 96506 AST [Catalytic activity/Vol] 20 U/L Normal 15 - 37 [facility] Comment on above: Performed By: #### 2 17101 #### [facility],[address] [place] [address] 98273 B/C RATIO 13 ratio Normal 0 - 30 [facility] Comment on above: Performed By: #### 2 48404 #### [facility],[address] [place] [address] 60132 Bilirubin [Mass/Vol] 1.4 mg/dL High 0.2 - 1.0 [facility] Comment on above: Performed By: #### 2 73071 #### [facility],[address] [place] [address] 88481 Calcium [Mass/Vol] 9.2 mg/dL Normal 8.5 - 10.1 [facility] [facility] Comment on above: Performed By: #### 2 07942 #### [facility],[address] [place] [address] 44497 Chloride [Moles/Vol] 105 mmol/L Normal 98 - 107 [facility] Comment on above: Performed By: #### 2 53389 #### [facility],[address] [place] [address] 37240 CMP with eGFR Normal [facility] Comment on above: Result Comment: COMP REHENSIVE METABOLIC PANEL Performed By: #### 2 78757 #### [facility],[address] [place] [address] 81798 CO2 [Moles/Vol] 26.8 mmol/L Normal 21.0 - 32.0 [facility] Comment on above: Performed By: #### 2 57815 #### [facility],[address] [place] [address] 32103 Creatinine [Mass/Vol] 1.49 mg/dL High 0.70 - 1.30 [facility] Comment on above: Performed By: #### 2 39571 #### [facility],[address] [place] [address] 66413 eGFR 45 ML/MINUTE Low 60 - 999 [facility] Comment on above: Performed By: #### 2 70024 #### [facility],[address] [place] [address] 22550 eGFR(AA) 55 ML/MINUTE Low 60 - 999 [facility] Comment on above: Result Comment: ACCO RDING TO THE NATIONAL KIDNEY DISEASE EDUCATION PROGRAM(NKDE), A NORMAL eGFR IS A VALUE GREATER THAN OR EQUAL TO 60 ML/MIN/1.73 SQ METERS. CHRONIC KIDNEY DISEASE: <60mL/MIN/1.73 SQ METERS KIDNEY FAILURE: <15mL/MIN/1.73 SQ METERS THIS TEST SHOULD ONLY BE USED FOR PATIENTS 18 YEARS OF AGE AND OLDER. Performed By: #### 2 22290 #### [facility],[address] [place] [address] 67986 Globulin (S) [Mass/Vol] 3.7 g/dL Normal 1.5 - 3.8 [facility] Comment on above: Performed By: #### 2 17104 #### [facility],[address] [place] [address] 55486 Glucose [Mass/Vol] 141 mg/dL High 74 - 106 [facility] Comment on above: Performed By: #### 2 64499 #### [facility],[address] [place] [address] 64515 Potassium [Moles/Vol] 3.8 mmol/L Normal 3.5 - 5.1 [facility] Comment on above: Performed By: #### 2 71029 #### [facility],[address] [place] [address] 39331 Protein [Mass/Vol] 7.2 g/dL Normal 6.4 - 8.2 [facility] Comment on above: Performed By: #### 2 61723 #### [facility],[address] [place] [address] 53312 Sodium [Moles/Vol] 142 mmol/L Normal 136 - 145 [facility] Comment on above: Performed By: #### 2 89383 #### [facility],[address] [place] [address] 98281 Urea nitrogen [Mass/Vol] 20 mg/dL High 7 - 18 [facility] Comment on above: Performed By: #### 2 75636 #### [facility],[address] [place] [address] 58817 HEMOGLOBIN A1C (POM)on 04-21 Glucose [Mass/Vol] 145.6 mg/dL High 0.0 - 0.0 [facility] Comment on above: Result Comment: Do HEMOGLOBIN A1C REFERENCE RANGESBLDo Suggested Diagnosis HbA1c(%) HbA1C (mmol/mol Diabetic >/=6.5 >/=48 Prediabetes 5.7 - 6.4 39 - 47 Normal <5.7 <39 Performed By: #### 2 56829 #### [facility],[address] [place] [address] 72271 HbA1c (Bld) [Mass fraction] 6.7 % High 0.0 - 6.5 [facility] Comment on above: Performed By: #### 2 03587 #### [facility],[address] [place] [address] 57704 LIPID PROFILEon 04-21-2024 Cholesterol [Mass/Vol] 110 mg/dL Normal 0 - 240 [facility] Comment on above: Performed By: #### 2 11235 #### [facility],[address] [place] [address] 85880 Cholesterol in HDL [Mass/Vol] 31 mg/dL Low 40 - 60 [facility] Comment on above: Performed By: #### 2 83787 #### [facility],[address] [place] [address] 77171 Cholesterol in LDL [Mass/Vol] 41 mg/dL Normal 0 - 129 [facility] Comment on above: Performed By: #### 2 37987 #### [facility],[address] [place] [address] 50089 Cholesterol.total/Marivel sterol in HDL [Mass ratio] 3.5 {ratio} Normal 0.0 - 5.0 [facility] Comment on above: Performed By: #### 2 49722 #### [facility],[address] [place] [address] 60284 Lipid 1996 panel Normal [facility] Comment on above: Result Comment: LIPI D PROFILE Performed By: #### 2 42124 #### [facility],[address] [place] [address] 85865 Triglyceride [Mass/Vol] 189 mg/dL High 0 - 150 [facility] Comment on above: Performed By: #### 2 72310 #### [facility],[address] [place] [address] 75861 TSHon 04-21-2024 TSH Qn 1.80 m[IU]/L Normal 0.35 - 3.74 [facility] Comment on above: Performed By: #### 2 93377 #### [address] [address] VITAMIN D, 25 HYDROXYon 04-08 VitD 30.60 ng/mL Normal 30.00 - 100 [facility] Comment on above: Result Comment: 25-O [...] D2 Not Established Performed By: #### 2 02897 #### [address] [address] BMP with eGFRon 04-20-2024 AGE 79 years Normal [facility] Comment on above: Performed By: #### 2 43282 #### [facility],[address] [place] [address] 56355 Anion gap [Moles/Vol] 14 mmol/L Normal 10 - 20 [facility] Comment on above: Performed By: #### 2 75689 #### [facility],[address] [place] [address] 63230 BMP with eGFR Normal [facility] Comment on above: Result Comment: BASI C METABOLIC PANEL Performed By: #### 2 11078 #### [facility],[address] [place] [address] 81363 Calcium [Mass/Vol] 8.7 mg/dL Normal 8.5 - 10.1 [facility] Comment on above: Performed By: #### 2 43293 #### [facility],[address] [place] [address] 02771 Chloride [Moles/Vol] 107 mmol/L Normal 98 - 107 [facility] Comment on above: Performed By: #### 2 65452 #### [facility],[address] [place] [address] 10939 CO2 [Moles/Vol] 26.9 mmol/L Normal 21.0 - 32.0 [facility] Comment on above: Performed By: #### 2 83737 #### [facility],[address] [place] [address] 31342 Creatinine [Mass/Vol] 1.43 mg/dL High 0.70 - 1.30 [facility] Comment on above: Performed By: #### 2 99920 #### [facility],[address] [place] [address] 28275 eGFR 48 ML/MINUTE Low 60 - 999 [facility] Comment on above: Performed By: #### 2 88554 #### [facility],[address] [place] [address] 98309 eGFR(AA) 58 ML/MINUTE Low 60 - 999 [facility] Comment on above: Result Comment: ACCO RDING TO THE NATIONAL KIDNEY DISEASE EDUCATION PROGRAM(NKDE), A NORMAL eGFR IS A VALUE GREATER THAN OR EQUAL TO 60 ML/MIN/1.73 SQ METERS. CHRONIC KIDNEY DISEASE: <60mL/MIN/1.73 SQ METERS KIDNEY FAILURE: <15mL/MIN/1.73 SQ METERS THIS TEST SHOULD ONLY BE USED FOR PATIENTS 18 YEARS OF AGE AND OLDER. Performed By: #### 2 18239 #### [facility],[address] [place] [address] 63235 Glucose [Mass/Vol] 152 mg/dL High 74 - 106 [facility] Comment on above: Performed By: #### 2 07622 #### [facility],[address] [place] [address] 73702 Potassium [Moles/Vol] 3.8 mmol/L Normal 3.5 - 5.1 [facility] Comment on above: Performed By: #### 2 13178 #### [facility],[address] [place] [address] 87988 Sodium [Moles/Vol] 144 mmol/L Normal 136 - 145 [facility] Comment on above: Performed By: #### 2 18136 #### [facility],[address] [place] [address] 82555 Urea nitrogen [Mass/Vol] 21 mg/dL High 7 - 18 [facility] Comment on above: Performed By: #### 2 63870 #### [facility],[address] [place] [address] 09127 Bedside Glucoseon 04-18-2024 FINGERSTICK GLU 150 mg/dL High 74-106 [facility] Comment on above: Result Comment: DAVID REED OF PATIENT CARE PER NURSING PROTOCOL Performed By: #### L 501.080 ####[facility] [address] [place], [place], [address] Basic Metabolic Profile (BMP )on 04-17-2024 BUN/CRE 17.5 RATIO Normal 10-20 [facility] Comment on above: Performed By: #### M 100.2200, L400.0001 #### [facility] [address] [place], [place], [address] [place],Total 8.9 mg/dL Normal 8.5-10.1 [facility] Comment on above: Performed By: #### M 100.2200, L400.0001 #### [facility] [address] [place], [address] Chloride [Moles/Vol] 107 mmol/L Normal 98-107 [facility] Comment on above: Performed By: #### M 100.2200, L400.0001 #### [facility] [address] [place], [address] CO2 [Moles/Vol] 26.0 mmol/L Normal 21.0-32.0 [facility] Comment on above: Performed By: #### M 100.2200, L400.0001 #### [facility] [address] [place], [address] Creatinine [Mass/Vol] 1.54 mg/dL High 0.70-1.[address] [facility] Comment on above: Result Comment: The validity of the calculated GFR GFRAA in patients over 70 years has not been determined. Clinical correlation is essential. Performed By: #### M 100.2200, L400.0001 #### [facility] [address] [place], [address] ECRCL 43.21 ml/min Normal [facility] Comment on above: Performed By: #### M 100.2200, L400.0001 #### [facility] [address] [place], [address] EST GFR - AA 56 mL/min Low >60 [facility] Comment on above: Result Comment: Afri can [place] GFR Calc Performed By: #### M 100.2200, L400.0001 #### [facility] [address] [place], [address] GAP 6 Normal 5-15 [facility] Comment on above: Performed By: #### M 100.2200, L400.0001 #### [facility] [address] [place], [address] GFR/1.73 sq M.predicted among non-blacks MDRD (S/P/Bld) [Vol rate/Area] 47 mL/min/{1.73_m2} Low >60 [facility] Comment on above: Result Comment: Non- GFR Calc Performed By: #### M 100.2200, L400.0001 #### [facility] [address] [place], [address] Glucose [Mass/Vol] 136 mg/dL High 74-106 [facility] Comment on above: Result Comment: Fast ing Glucose result greater than or equal to 126 mg/dL suggests DIABETES MELLITUS per A.D.A. criteria. Performed By: #### M 100.2200, L400.0001 #### [facility] [address] [place], [address] Potassium [Moles/Vol] 3.6 mmol/L Normal 3.5-5.[address] [facility] Comment on above: Performed By: #### M 100.2200, L400.0001 #### [facility] [address] [place], [address] Sodium [Moles/Vol] 139 mmol/L Normal 136-145 [facility] Comment on above: Performed By: #### M 100.2200, L400.0001 #### [facility] [address] [place], [address] Urea nitrogen [Mass/Vol] 27 mg/dL High 7-18 [facility] Comment on above: Performed By: #### M 100.2200, L400.0001 #### [facility] [address] [place], [address] Bedside Glucoseon 04-17-2024 FINGERSTICK GLU 179 mg/dL High 74-106 [facility] Comment on above: Result Comment: DAVID REED OF PATIENT CARE PER NURSING PROTOCOL Performed By: #### M 100.2200, L400.0001 #### [facility] [address] [place], [address] FINGERSTICK GLU 164 mg/dL High 74-106 [facility] Comment on above: Result Comment: DAVID GEMENT OF PATIENT CARE PER NURSING PROTOCOL Performed By: #### M 100.2200, L400.0001 #### [facility] [address] [place], [address] FINGERSTICK GLU 125 mg/dL High 74-106 [facility] Comment on above: Result Comment: DAVID GEMENT OF PATIENT CARE PER NURSING PROTOCOL Performed By: #### L 501.080 ####[facility] [address] [place], [address] Basic Metabolic Profile (BMP )on 04-16-2024 BUN/CRE 18.2 RATIO Normal 10-20 [facility] Comment on above: Performed By: #### L 100.0500, L500.2500 ####[facility] [address] [place], [address] CA,Total 9.0 mg/dL Normal 8.5-10.1 [facility] Comment on above: Performed By: #### L 100.0500, L500.2500 ####[facility] [address] [place], [address] Chloride [Moles/Vol] 106 mmol/L Normal 98-107 [facility] Comment on above: Performed By: #### L 100.0500, L500.2500 ####[facility] [address] [place], [address] CO2 [Moles/Vol] 29.0 mmol/L Normal 21.0-32.0 [facility] Comment on above: Performed By: #### L 100.0500, L500.2500 ####[facility] [address] [place], [address] Creatinine [Mass/Vol] 1.87 mg/dL High 0.70-1.[address] [facility] Comment on above: Result Comment: The validity of the calculated GFR GFRAA in patients over 70 years has not been determined. Clinical correlation is essential. Performed By: #### L 100.0500, L500.2500 ####[facility] [address] [place], [address] ECRCL 35.58 ml/min Normal [facility] Comment on above: Performed By: #### L 100.0500, L500.2500 ####[facility] [address] [place], [address] EST GFR - AA 45 mL/min Low >60 [facility] Comment on above: Result Comment: Afri can [place] GFR Calc Performed By: #### L 100.0500, L500.2500 ####[facility] [address] [place], [address] GAP 4 Low 5-15 [facility] Comment on above: Performed By: #### L 100.0500, L500.2500 ####[facility] [address] [place], [address] GFR/1.73 sq M.predicted among non-blacks MDRD (S/P/Bld) [Vol rate/Area] 37 mL/min/{1.73_m2} Low >60 [facility] Comment on above: Result Comment: Non- GFR Calc Performed By: #### L 100.0500, L500.2500 ####[facility] [address] [place], [address] Glucose [Mass/Vol] 131 mg/dL High 74-106 [facility] Comment on above: Result Comment: Fast ing Glucose result greater than or equal to 126 mg/dL suggests DIABETES MELLITUS per A.D.A. criteria. Performed By: #### L 100.0500, L500.2500 ####[facility] [address] [place], [address] Potassium [Moles/Vol] 4.0 mmol/L Normal 3.5-5.[address] [facility] Comment on above: Performed By: #### L 100.0500, L500.2500 ####[facility] [address] [place], [address] Sodium [Moles/Vol] 139 mmol/L Normal 136-145 [facility] Comment on above: Performed By: #### L 100.0500, L500.2500 ####[facility] [address] [place], [address] Urea nitrogen [Mass/Vol] 34 mg/dL High 7-18 [facility] Comment on above: Performed By: #### L 100.0500, L500.2500 ####[facility] [address] [place], [address] Bedside Glucoseon 04-16-2024 FINGERSTICK GLU 124 mg/dL High 74-106 [facility] Comment on above: Result Comment: DAVID GEMENT OF PATIENT CARE PER NURSING PROTOCOL Performed By: #### L 501.080 ####[facility] [address] [place], [address] FINGERSTICK GLU 180 mg/dL High 74-106 [facility] Comment on above: Result Comment: DAVID GEMENT OF PATIENT CARE PER NURSING PROTOCOL Performed By: #### L 500.2500, L100.0100 #### [facility] [address] [place], [address] FINGERSTICK GLU 185 mg/dL High 74-106 [facility] Comment on above: Result Comment: DAVID GEMENT OF PATIENT CARE PER NURSING PROTOCOL Performed By: #### M 100.2200, L400.0001 #### [facility] [address] [place], [address] FINGERSTICK GLU 141 mg/dL High 74-106 [facility] Comment on above: Result Comment: DAVID GEMENT OF PATIENT CARE PER NURSING PROTOCOL Performed By: #### M 100.2200, L400.0001 #### [facility] [address] [place], [address] CBC-Complete Blood Cnt No Di ffon 04-16-2024 Erythrocyte distribution width (RBC) [Ratio] 13.8 % Normal 11.6-14.6 [facility] Comment on above: Performed By: #### L 100.0500, L500.2500 ####[facility] [address] [place], [address] Hematocrit (Bld) [Volume fraction] 43.7 % Normal 40-54 [facility] Comment on above: Performed By: #### L 100.0500, L500.2500 ####[facility] [address] [place], [address] Hemoglobin (Bld) [Mass/Vol] 14.3 g/dL Normal 13.0-16.5 [facility] Comment on above: Performed By: #### L 100.0500, L500.2500 ####[facility] [address] [place], [address] MCH (RBC) [Entitic mass] 31.3 pg Normal 27.0-32.0 [facility] Comment on above: Performed By: #### L 100.0500, L500.2500 ####[facility] [address] [place], [address] MCHC (RBC) [Mass/Vol] 32.7 g/dL Normal 32-[address] [facility] Comment on above: Performed By: #### L 100.0500, L500.2500 ####[facility] [address] [place], [address] MCV (RBC) [Entitic vol] 95.6 fL High 80-94 [facility] Comment on above: Performed By: #### L 100.0500, L500.2500 ####[facility] [address] [place], [address] Platelet mean volume (Bld) [Entitic vol] 10.6 fL Normal 6.2-12.0 [facility] Comment on above: Performed By: #### L 100.0500, L500.2500 ####[facility] [address] [place], [address] Platelets (Bld) [#/Vol] 126 10*3/uL Low 150-450 [facility] Comment on above: Performed By: #### L 100.0500, L500.2500 ####[facility] [address] [place], [address] RBC (Bld) [#/Vol] 4.57 10*6/uL Low 4.6-6.2 [facility] Comment on above: Performed By: #### L 100.0500, L500.2500 ####[facility] [address] [place], [address] RDW SD 48.6 fl High 35.1-43.9 [facility] Comment on above: Performed By: #### L 100.0500, L500.2500 ####[facility] [address] [place], [address] WBC (Bld) [#/Vol] 6.0 10*3/uL Normal 4.4-11.0 [facility] Comment on above: Performed By: #### L 100.0500, L500.2500 ####[facility] [address] [place], [address] Bedside Glucoseon 04-15-2024 FINGERSTICK GLU 205 mg/dL High 74-106 [facility] Comment on above: Result Comment: DAVID REED OF PATIENT CARE PER NURSING PROTOCOL Performed By: #### M 100.2200, L400.0001 #### [facility] [address] [place], [address] FINGERSTICK GLU 149 mg/dL High 74-106 [facility] Comment on above: Result Comment: DAVID GEMENT OF PATIENT CARE PER NURSING PROTOCOL Performed By: #### M 100.2200, L400.0001 #### [facility] [address] [place], [address] FINGERSTICK GLU 218 mg/dL High 74-106 [facility] Comment on above: Result Comment: DAVID GEMENT OF PATIENT CARE PER NURSING PROTOCOL Performed By: #### L 501.080 #### [facility] [address] [place], [address] FINGERSTICK GLU 155 mg/dL High 74-106 [facility] Comment on above: Result Comment: DAVID GEMENT OF PATIENT CARE PER NURSING PROTOCOL Performed By: #### L 501.080 #### [facility] [address] [place], [address] CBC W/Diff, Automatedon 01-0 8-2024 Absolute Lymph 1.49 X10 3/uL Normal 0.83-4.51 [facility] Comment on above: Performed By: #### M 100.2200, L400.0001 #### [facility] [address] [place], [address] Absolute Neut 4.0 X10 3/uL Normal 2.0-7.7 [facility] Comment on above: Performed By: #### M 100.2200, L400.0001 #### [facility] [address] [place], [address] Basophils/100 WBC (Bld) 0.5 % Normal 0-1 [facility] Comment on above: Performed By: #### M 100.2200, L400.0001 #### [facility] [address] [place], [address] Eosinophils/100 WBC (Bld) 5.6 % High 0-5 [facility] Comment on above: Performed By: #### M 100.2200, L400.0001 #### [facility] [address] [place], [address] Erythrocyte distribution width (RBC) [Ratio] 13.7 % Normal 11.6-14.6 [facility] Comment on above: Performed By: #### M 100.2200, L400.0001 #### [facility] [address] [place], [address] Hematocrit (Bld) [Volume fraction] 44.1 % Normal 40-54 [facility] Comment on above: Performed By: #### M 100.2200, L400.0001 #### [facility] [address] [place], [address] Hemoglobin (Bld) [Mass/Vol] 14.5 g/dL Normal 13.0-16.5 [facility] Comment on above: Performed By: #### M 100.2200, L400.0001 #### [facility] [address] [place], [address] IG% 0.300 Normal 0.0-0.9 [facility] Comment on above: Result Comment: IG% - Immature Granulocytes (promyelocytes, myelocytes and metamyelocytes) > 1% indicates that a LEFT SHIFT is Present. Performed By: #### M 100.2200, L400.0001 #### [facility] [address] [place], [address] Lymphocytes/100 WBC (Bld) 22.4 % Normal 19-41 [facility] Comment on above: Performed By: #### M 100.2200, L400.0001 #### [facility] [address] [place], [address] MCH (RBC) [Entitic mass] 31.0 pg Normal 27.0-32.0 [facility] Comment on above: Performed By: #### M 100.2200, L400.0001 #### [facility] [address] [place], [address] MCHC (RBC) [Mass/Vol] 32.9 g/dL Normal 32-[address] [facility] Comment on above: Performed By: #### M 100.2200, L400.0001 #### [facility] [address] [place], [address] MCV (RBC) [Entitic vol] 94.4 fL High 80-94 [facility] Comment on above: Performed By: #### M 100.2200, L400.0001 #### [facility] [address] [place], [address] Monocytes/100 WBC (Bld) 11.6 % High 0-10 [facility] Comment on above: Performed By: #### M 100.2200, L400.0001 #### [facility] [address] [place], [address] Neutrophils/100 WBC (Bld) 59.6 % Normal 47-70 [facility] Comment on above: Performed By: #### M 100.2200, L400.0001 #### [facility] [address] [place], [address] Nucleated RBC (Bld) [#/Vol] 0 10*3/uL Normal 0-5 [facility] Comment on above: Performed By: #### M 100.2200, L400.0001 #### [facility] [address] [place], [address] Platelet mean volume (Bld) [Entitic vol] 10.2 fL Normal 6.2-12.0 [facility] Comment on above: Performed By: #### M 100.2200, L400.0001 #### [facility] [address] [place], [address] Platelets (Bld) [#/Vol] 130 10*3/uL Low 150-450 [facility] Comment on above: Performed By: #### M 100.2200, L400.0001 #### [facility] [address] [place], [address] RBC (Bld) [#/Vol] 4.67 10*6/uL Normal 4.6-6.2 [facility] Comment on above: Performed By: #### M 100.2200, L400.0001 #### [facility] [address] [place], [address] RDW SD 47.8 fl High 35.1-43.9 [facility] Comment on above: Performed By: #### M 100.2200, L400.0001 #### [facility] [address] [place], [address] WBC (Bld) [#/Vol] 6.7 10*3/uL Normal 4.4-11.0 [facility] Comment on above: Performed By: #### M 100.2200, L400.0001 #### [facility] [address] [place], [address] Comprehensive Metabolic Prof [facility] 04-15-2024 Albumin [Mass/Vol] 3.2 g/dL Normal 3.2-5.0 [facility] Comment on above: Performed By: #### M 100.2200, L400.0001 #### [facility] [address] [place], [address] Albumin/Globulin [Mass ratio] 1.0 {ratio} Normal 0.9-2.4 [facility] Comment on above: Performed By: #### M 100.2200, L400.0001 #### [facility] [address] [place], [address] ALK P 92 U/L Normal 45-117 [facility] Comment on above: Performed By: #### M 100.2200, L400.0001 #### [facility] [address] [place], [address] ALT [Catalytic activity/Vol] 20 U/L Normal 16-61 [facility] Comment on above: Performed By: #### M 100.2200, L400.0001 #### [facility] [address] [place], [address] AST [Catalytic activity/Vol] 12 U/L Low 15-37 [facility] Comment on above: Performed By: #### M 100.2200, L400.0001 #### [facility] [address] [place], [address] Bilirubin [Mass/Vol] 1.90 mg/dL High 0.20-1.00 [facility] Comment on above: Result Comment: For patients on eltrombopag therapy, use of Dimension [place] TBIL is not recommended. Performed By: #### M 100.2200, L400.0001 #### [facility] [address] [place], [address] BUN/CRE 16.8 RATIO Normal 10-20 [facility] Comment on above: Performed By: #### M 100.2200, L400.0001 #### [facility] [address] [place], [address] CA,Total 9.1 mg/dL Normal 8.5-10.1 [facility] Comment on above: Performed By: #### M 100.2200, L400.0001 #### [facility] [address] [place], [address] Chloride [Moles/Vol] 108 mmol/L High 98-107 [facility] Comment on above: Performed By: #### M 100.2200, L400.0001 #### [facility] [address] [place], [address] CO2 [Moles/Vol] 27.0 mmol/L Normal 21.0-32.0 [facility] Comment on above: Performed By: #### M 100.2200, L400.0001 #### [facility] [address] [place], [address] Creatinine [Mass/Vol] 1.55 mg/dL High 0.70-1.[address] [facility] Comment on above: Result Comment: The validity of the calculated GFR GFRAA in patients over 70 years has not been determined. Clinical correlation is essential. Performed By: #### M 100.2200, L400.0001 #### [facility] [address] [place], [address] ECRCL 42.93 ml/min Normal [facility] Comment on above: Performed By: #### M 100.2200, L400.0001 #### [facility] [address] [place], [address] EST GFR - AA 56 mL/min Low >60 [facility] Comment on above: Result Comment: Afri can [place] GFR Calc Performed By: #### M 100.2200, L400.0001 #### [facility] [address] [place], [address] GAP 5 Normal 5-15 [facility] Comment on above: Performed By: #### M 100.2200, L400.0001 #### [facility] [address] [place], [address] GFR/1.73 sq M.predicted among non-blacks MDRD (S/P/Bld) [Vol rate/Area] 46 mL/min/{1.73_m2} Low >60 [facility] Comment on above: Result Comment: Non- GFR Calc Performed By: #### M 100.2200, L400.0001 #### [facility] [address] [place], [address] Globulin (S) [Mass/Vol] 3.2 g/dL Normal 2.2-4.2 [facility] Comment on above: Performed By: #### M 100.2200, L400.0001 #### [facility] [address] [place], [address] Glucose [Mass/Vol] 143 mg/dL High 74-106 [facility] Comment on above: Result Comment: Fast ing Glucose result greater than or equal to 126 mg/dL suggests DIABETES MELLITUS per A.D.A. criteria. Performed By: #### M 100.2200, L400.0001 #### [facility] [address] [place], [address] Potassium [Moles/Vol] 3.9 mmol/L Normal 3.5-5.[address] [facility] Comment on above: Performed By: #### M 100.2200, L400.0001 #### [facility] [address] [place], [address] Sodium [Moles/Vol] 140 mmol/L Normal 136-145 [facility] Comment on above: Performed By: #### M 100.2200, L400.0001 #### [facility] [address] [place], [address] T PROT 6.4 g/dL Normal 6.4-8.2 [facility] Comment on above: Performed By: #### M 100.2200, L400.0001 #### [facility] [address] [place], [address] Urea nitrogen [Mass/Vol] 26 mg/dL High 7-18 [facility] Comment on above: Performed By: #### M 100.2200, L400.0001 #### [facility] [address] [place], [address] 12 Lead EKGon 04-14-2024 12 Lead EKG [facility] Cardiovascular Services [address] [place] [address] 12 Lead EKG 04/14/24 1459 MR#: [id number] Acct: [id number] Name: KIMBERLY NAVA Rep #: [id number] : 1945 79 From: Vikash Quintana MD Attending Dr: Dr. Toshia Pro MD Status: ADM IN Ordering Dr: Buddy Andrews MD Date: 04/14/24 Location: AL3 Sex: M C Admitted: 04/14/24 Test Reason [...] 15-May-2007) Abnormal ECG Confirmed by Vikash Quintana ([id number]), film editor ENRIQUE METZGER ([id number]) on 04/15/2024 8:26:27 AM Referred By: Confirmed By: Vikash Quintana 04/15/24 0826 Date Vikash Quintana MD CC: Dr. Buddy Andrews MD; Dr. Kobi Adair MD; Dr. Toshia Pro MD Signed Normal [facility] Basic Metabolic Profile (BMP )on 04-14-2024 BUN/CRE 15.3 RATIO Normal 10-20 [facility] Comment on above: Performed By: #### L 500.2500, L100.0100 #### [facility] [address] [facility] [address] [place], [place], [address] CA,Total 8.7 mg/dL Normal 8.5-10.1 [facility] Comment on above: Performed By: #### L 500.2500, L100.0100 #### [facility] [address] [place], [address] Chloride [Moles/Vol] 106 mmol/L Normal 98-107 [facility] Comment on above: Performed By: #### L 500.2500, L100.0100 #### [facility] [address] [place], [address] CO2 [Moles/Vol] 26.0 mmol/L Normal 21.0-32.0 [facility] Comment on above: Performed By: #### L 500.2500, L100.0100 #### [facility] [address] [place], [address] Creatinine [Mass/Vol] 1.70 mg/dL High 0.70-1.[address] [facility] Comment on above: Result Comment: The validity of the calculated GFR GFRAA in patients over 70 years has not been determined. Clinical correlation is essential. Performed By: #### L 500.2500, L100.0100 #### [facility] [address] [place], [address] ECRCL 40.90 ml/min Normal [facility] Comment on above: Performed By: #### L 500.2500, L100.0100 #### [facility] [address] [place], [address] EST GFR - AA 50 mL/min Low >60 [facility] Comment on above: Result Comment: Afri can [place] GFR Calc Performed By: #### L 500.2500, L100.0100 #### [facility] [address] [place], [address] GAP 6 Normal 5-15 [facility] Comment on above: Performed By: #### L 500.2500, L100.0100 #### [facility] [address] [place], [address] GFR/1.73 sq M.predicted among non-blacks MDRD (S/P/Bld) [Vol rate/Area] 42 mL/min/{1.73_m2} Low >60 [facility] Comment on above: Result Comment: Non- GFR Calc Performed By: #### L 500.2500, L100.0100 #### [facility] [address] [place], [address] Glucose [Mass/Vol] 194 mg/dL High 74-106 [facility] Comment on above: Result Comment: Fast ing Glucose result greater than or equal to 126 mg/dL suggests DIABETES MELLITUS per A.D.A. criteria. Performed By: #### L 500.2500, L100.0100 #### [facility] [address] [place], [address] Potassium [Moles/Vol] 3.7 mmol/L Normal 3.5-5.[address] [facility] Comment on above: Performed By: #### L 500.2500, L100.0100 #### [facility] [address] [place], [address] Sodium [Moles/Vol] 138 mmol/L Normal 136-145 [facility] Comment on above: Performed By: #### L 500.2500, L100.0100 #### [facility] [address] [place], [address] Urea nitrogen [Mass/Vol] 26 mg/dL High 7-18 [facility] Comment on above: Performed By: #### L 500.2500, L100.0100 #### [facility] [address] [place], [address] Bedside Glucoseon 04-14-2024 FINGERSTICK GLU 188 mg/dL High 74-106 [facility] Comment on above: Result Comment: DAVID GEMENT OF PATIENT CARE PER NURSING PROTOCOL Performed By: #### M 100.2200, L400.0001 #### [facility] [address] [place], [address] FINGERSTICK GLU 106 mg/dL Normal 74-106 [facility] Comment on above: Result Comment: DAVID GEMENT OF PATIENT CARE PER NURSING PROTOCOL Performed By: #### M 100.2200, L400.0001 #### [facility] [address] [place], [address] CBC W/Diff, Automatedon 01-0 7-2024 Absolute Lymph 1.32 X10 3/uL Normal 0.83-4.51 [facility] Comment on above: Performed By: #### L 500.2500, L100.0100 #### [facility] [address] [place], [address] Absolute Neut 4.1 X10 3/uL Normal 2.0-7.7 [facility] Comment on above: Performed By: #### L 500.2500, L100.0100 #### [facility] [address] [place], [address] Basophils/100 WBC (Bld) 0.5 % Normal 0-1 [facility] Comment on above: Performed By: #### L 500.2500, L100.0100 #### [facility] [address] [place], [address] Eosinophils/100 WBC (Bld) 4.9 % Normal 0-5 [facility] Comment on above: Performed By: #### L 500.2500, L100.0100 #### [facility] [address] [place], [address] Erythrocyte distribution width (RBC) [Ratio] 13.5 % Normal 11.6-14.6 [facility] Comment on above: Performed By: #### L 500.2500, L100.0100 #### [facility] [address] [place], [address] Hematocrit (Bld) [Volume fraction] 44.3 % Normal 40-54 [facility] Comment on above: Performed By: #### L 500.2500, L100.0100 #### [facility] [address] [place], [address] Hemoglobin (Bld) [Mass/Vol] 14.7 g/dL Normal 13.0-16.5 [facility] Comment on above: Performed By: #### L 500.2500, L100.0100 #### [facility] [address] [place], [address] IG% 0.300 Normal 0.0-0.9 [facility] Comment on above: Result Comment: IG% - Immature Granulocytes (promyelocytes, myelocytes and metamyelocytes) > 1% indicates that a LEFT SHIFT is Present. Performed By: #### L 500.2500, L100.0100 #### [facility] [address] [place], [address] Lymphocytes/100 WBC (Bld) 20.7 % Normal 19-41 [facility] Comment on above: Performed By: #### L 500.2500, L100.0100 #### [facility] [address] [place], [address] MCH (RBC) [Entitic mass] 31.1 pg Normal 27.0-32.0 [facility] Comment on above: Performed By: #### L 500.2500, L100.0100 #### [facility] [address] [place], [address] MCHC (RBC) [Mass/Vol] 33.2 g/dL Normal 32-[address] [facility] Comment on above: Performed By: #### L 500.2500, L100.0100 #### [facility] [address] [place], [address] MCV (RBC) [Entitic vol] 93.9 fL Normal 80-94 [facility] Comment on above: Performed By: #### L 500.2500, L100.0100 #### [facility] [address] [place], [address] Monocytes/100 WBC (Bld) 10.0 % Normal 0-10 [facility] Comment on above: Performed By: #### L 500.2500, L100.0100 #### [facility] [address] [place], [address] Neutrophils/100 WBC (Bld) 63.6 % Normal 47-70 [facility] Comment on above: Performed By: #### L 500.2500, L100.0100 #### [facility] [address] [place], [address] Nucleated RBC (Bld) [#/Vol] 0 10*3/uL Normal 0-5 [facility] Comment on above: Performed By: #### L 500.2500, L100.0100 #### [facility] [address] [place], [address] Platelet mean volume (Bld) [Entitic vol] 10.4 fL Normal 6.2-12.0 [facility] Comment on above: Performed By: #### L 500.2500, L100.0100 #### [facility] [address] [place], [address] Platelets (Bld) [#/Vol] 129 10*3/uL Low 150-450 [facility] Comment on above: Performed By: #### L 500.2500, L100.0100 #### [facility] [address] [place], [address] RBC (Bld) [#/Vol] 4.72 10*6/uL Normal 4.6-6.2 [facility] Comment on above: Performed By: #### L 500.2500, L100.0100 #### [facility] [address] [place], [address] RDW SD 46.1 fl High 35.1-43.9 [facility] Comment on above: Performed By: #### L 500.2500, L100.0100 #### [facility] [address] [place], [address] WBC (Bld) [#/Vol] 6.4 10*3/uL Normal 4.4-11.0 [facility] Comment on above: Performed By: #### L 500.2500, L100.0100 #### [facility] [address] [place], [address] Emergency Department Summary on 04-14-2024 Emergency Department Summary [facility] Medical Records Department [address] [place] [address] Emergency Department Summary 04/14/24 MR#: [id number] Acct: [id number] Name: KIMBERLY NAVA Rep #: [id number] : 1945 79 From: Buddy Andrews MD [...] ambulate and continued left lower extremity pain. [facility] Medical History (Updated 04/14/24 @ 15:01 by [...] PO BID 04/14/24 04/14/24 History mg-copper 1 ly-ufqlqr-movssa capsule (PreserVision AREDS-2) Allergy/AdvReac Type Severity Reaction Status Date / Time Anesthetics - Amide Type - Allergy Other Verified 06/27/23 14:21 [facility] - [place] Type- [...] No headaches, (more content not included)... Normal [facility] Extremity Lower without Cont raon 04-14-2024 Extremity Lower without Contra [facility] Imaging Services [address] [place] [address] Extremity Lower without Contra MR#: [id number] Acct: [id number] Name: KIMBERLY NAVA Rep #: [id number] : 1945 M 79 From: Christin turner MD PCP: Dr. Kobi Adair MD Status: REG ER Study: Extremity Lower without Contra Date of Exam: 0 04/14/24 Exam# [id number] Ordering Dr: Buddy Andrews MD [id number] HISTORY: Trauma, pain. TECHNIQUE: Helically acquired images [...] Signed: Christin Villeda MD at 13:30 EST , CC: Dr. Buddy Andrews MD; Dr. Kobi Adair MD Psychopaedic Nurse: Signed Normal [facility] H AND P Exam - Hospitaliston 04-14-2024 H&P Exam - Hospitalist [facility] Medical Records Department [address] [place] [address] H P Exam - Hospitalist 04/14/24 1440 MR#: [id number] Acct: [id number] Name: KIMBERLY NAVA Rep #: [id number] : 1945 79 From: Liliane Lwoe MD PCP: Dr. Kobi Adair MD Status:ADM IN Location[place] [facility] [place] [id number] HPI - General General Date of Admission: [...] s/p MV repair who presents to the [facility] ED on 04/14/24 with history of [...] patient may be weight bearing as tolerated. [facility] Medical History Former tobacco use History [...] PO BID 04/14/24 04/14/24 History mg-copper 1 ty-xmzwuc-hlimgc capsule (PreserVision AREDS-2) Allergy/AdvRea (more content not included)... Normal [facility] HIP, UNI W/ Pelvis 2-3 Views on 04-14-2024 HIP, UNI W/ Pelvis 2-3 Views [facility] Imaging Services [address] [place] [address] HIP, UNI W/ Pelvis 2-3 Views MR#: [id number] Acct: [id number] Name: KIMBERLY NAVA Rep #: [id number] : 1945 M 79 From: Kimberly Howe MD PCP: Dr. Kobi Adair MD Status: REG ER Study: HIP, UNI W/ Pelvis 2-3 Views Date of Exam: 10/30 Exam# [id number] Ordering Dr: Buddy Andrews MD [id number] STUDY: X-RAY - PELVIS AND LEFT HIP [...] 12:13 EST Reading Location ID and State: [address] [place] [address] , Service support , CC: Dr. Buddy Andrews MD; Dr. Kobi Adair MD Psychopaedic Nurse: Signed Normal [facility] Magnesiumon 04-14-2024 Magnesium [Mass/Vol] 2.4 mg/dL Normal 1.6-2.6 [facility] Comment on above: Order Comment: COLOR OF URINE MAY AFFECT DIPSTICK RESULTS. CLEAN CATCH Performed By: #### M 100.2200, L400.0001 #### [facility] [address] [place], [address] Ribs Uni Min 3V w/PA Cheston 04-14-2024 Ribs Uni Min 3V w/PA Chest [facility] Imaging Services [address] [place] [address] Ribs Uni Min 3V w/PA Chest MR#: [id number] Acct: [id number] Name: KIMBERLY NAVA Rep #: [id number] : 1945 M 79 From: Kimberly Howe MD PCP: Dr. Kobi Adair MD Status: REG ER Study: Ribs Uni Min 3V w/PA Chest Date of Exam: 04/14 Exam# [id number] Ordering Dr: Buddy Andrews MD [id number] STUDY: X-RAY - UNILATERAL RIBS ( LEFT [...] Buddy Andrews MD; Dr. Kobi Adair MD Psychopaedic Nurse: Signed [facility] 12-17-2023 CNPN Telephone (INTMWS) -------- KIMBERLY NAVA ([id number]) 1945 M Date Time Provider Department 12/17/23 NIKIA ADAIR INTMWS During your visit today, we recorded the [...] not accept as it was signed by POWER REGULATOR not MD. I instructed pt that [facility] and ask that [facility] be signed by an MD. Pt voiced understanding. Alicja Galeas MA Allergies As of Date: 12/17/2023 Noted Allergy Reaction INHALED ANESTHETICS (HALOGEN BASE*05/28/2007 MEVACOR (LOVASTATIN) 04/11/2007 Comments: Patient's tongue swelled Date Reviewed: 10/28/2023 Reviewed by: Toshia Leonard RN - Fully Assessed Reason for Visit: [...] Please fax 30 day compliance download to [phone]. Dx: ANABELL, treatment emergent CSA - sertraline [...] of th (more content not included)... Normal [facility] CNOVon 10-28-2023 CNOV Office Visit (CAWSTR ) -------- KIMBERLY NAVA ([id number]) 1945 M Date Time Provider Department 10/28/23 9:40 AM SRIRAM VALLES CAWSTR During your visit today, we recorded the following information about you: Pulse Blood pressure Weight Height 89/minute 133/84 109.1 kg 1.676 m Sriram Valles MD 10/28/2023 10:10 AM Signed Sriram Valles MD Interventional Cardiology [address] [place] [address] [phone] Chief Complaint Patient presents with: Follow Up [...] but ill-defined, cerebrovascular disease 1970s TIA Cancer ([facility]) 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 Hogue Depression Diabetes ([facility]) DVT (deep venous thrombosis) ([facility]) 2007 Esophageal reflux Generalized osteoarthrosis, unspecified site Hemorrhage of gastrointestinal tract, unspecified History of tobacco use Hypothyroidism Nonspecific (abnormal) findings on radiological and other examination of genitourinary organs 11/18/2007 He has R pelvic Kidney - congenital Obesity (BMI 30-39.9) Obstructive sleep apnea Bipap, seeing [facility] with [facility]. bypass and valve repair- DVT [...] of Onset None Mother 98 Heart Father [facility] AGE 67 Diabetes Father Hypertension Brother Diabetes [...] 200 mcg (more content not included)... Normal [facility] NMT94ik 10-28-2023 ECG01 Ventricular Rate : 8 9 BPM Atrial Rate : 89 BPM P-R Interval : 162 ms QRS Duration : 84 ms Q-T Interval : 392 ms QTC Calculation(Bazett) : 476 ms Calculated P [place] : 24 degrees Calculated R [place] : -1 degrees Calculated T [place] : 58 degrees NORMAL SINUS RHYTHM POSSIBLE INFERIOR MYOCARDIAL INFARCTION , AGE UNDETERMINED ABNORMAL ECG Confirmed by BLAIR LEON DO ([id number]) on 10/29/2023 8:11:11 AM NAME : KIMBERLY NAVA PID : [id number] : 1945 Gender : Male Race : ORD : Procedure Date : Oct 28 2023 09:51:50 Edit Date : Oct 29 2023 08:11:14 Diagnosis: NORMAL SINUS RHYTHM POSSIBLE INFERIOR MYOCARDIAL INFARCTION , AGE UNDETERMINED ABNORMAL ECG Confirmed by BLAIR LEON DO ([id number]) on 10/29/2023 8:11:11 AM Test Reason : Location : 136 : [place] Overread By : BLAIR LEON DO Edited By : BLAIR LEON DO Referred By : SRIRAM VALLES Acquired by : Kelsey shi [facility] No Panel Informationon 07-09 [facility] CNNURSEon 07-13-2020 CNNURSE Nurse Visit (COVAMD) -------- KIMBERLY NAVA ([id number]) 1945 M Date Time Provider Department 07/13/20 ELOY DASH (KEN) PEDRO LUIS During your visit today, we recorded the following information about you: Allergies As of Date: 07/13/2020 Noted Allergy Reaction INHALED ANESTHETICS (HALOGEN BASE*05/28/2007 MEVACOR (LOVASTATIN) 04/11/2007 Comments: Patient's tongue swelled Date Reviewed: 04/22/2020 Reviewed by: Fariha Dennis Ma - Fully Assessed Order(s):[employer] 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 Kobi Adair MD Work Phone: 4(420)622-656831 [place] [address] 12-23-2024 16:30-0400 Diastolic blood pressure 76 mm[Hg] Dr. Kobi Adair MD Work Phone: 9(031)166-916131 [place] [address] 12-23-2024 16:30-0400 Heart rate 90 /min Dr. Kobi Adair MD Work Phone: 8(684)432-766931 [place] [address] 12-23-2024 16:30-0400 Respiratory rate 16 /min Dr. Kobi Adair MD Work Phone: 9(909)955-027331 [place] [address] 12-23-2024 16:30-0400 SaO2% (BldA) [Mass fraction] 96 % Dr. Kobi Adair MD Work Phone: 9(389)624-149831 [place] [address] 12-23-2024 16:30-0400 Systolic blood pressure 126 mm[Hg] Dr. Kobi Adair MD Work Phone: 0(587)882-771931 [place] [address] 12-23-2024 14:44-0400 Body height 167.[address] Kobi Adair MD Work Phone: 8(461)217-191531 [place] [address] 12-23-2024 14:44-0400 Body mass index (BMI) [Ratio] 36.8 kg/m2 Dr. Kobi Adair MD Work Phone: 6(877)040-684731 [place] [address] 12-23-2024 14:44-0400 Body weight 103.[address] Kobi Adair MD Work Phone: 3(887)207-900731 [place] [address] 12-02-2024 13:58-0400 Body height 167.6 cm Sriram Valles MD Work Phone: [facility] 12-02-2024 13:58-0400 Body mass index (BMI) [Ratio] 37.12 kg/m2 Sriram Valles MD Work Phone: [facility] 12-02-2024 13:58-0400 Body weight 104.33 kg Sriram Valles MD Work Phone: [facility] 12-02-2024 13:58-0400 Diastolic blood pressure 74 mm[Hg] Sriram Valles MD Work Phone: [facility] 12-02-2024 13:58-0400 Heart rate 81 /min Sriram Valles MD Work Phone: [facility] 12-02-2024 13:58-0400 SaO2% (BldA) [Mass fraction] 95 % Sriram Valles MD Work Phone: [facility] 12-02-2024 13:58-0400 Systolic blood pressure 133 mm[Hg] Sriram Valles MD Work Phone: [facility] 09-30-2024 00:43-0400 Body temperature 98.2 [degF] Dr. Kobi Adair MD Work Phone: [facility] 09-30-2024 00:43-0400 Diastolic blood pressure 84 mm[Hg] Dr. Kobi Adair MD Work Phone: [facility] 09-30-2024 00:43-0400 Heart rate 86 /min Dr. Kobi Adair MD Work Phone: [facility] 09-30-2024 00:43-0400 Respiratory rate 16 /min Dr. Kobi Adair MD Work Phone: [facility] 09-30-2024 00:43-0400 SaO2% (BldA) [Mass fraction] 92 % Dr. Kobi Adair MD Work Phone: [facility] 09-30-2024 00:43-0400 Systolic blood pressure 149 mm[Hg] Dr. Kobi Adair MD Work Phone: [facility] 09-29-2024 20:42-0400 Body height 167.[address] Kobi Adair MD Work Phone: 2(681)075-103831 [place] [address] 09-29-2024 20:42-0400 Body mass index (BMI) [Ratio] 35.9 kg/m2 Dr. Kobi Adair MD Work Phone: 6(072)621-728531 [place] [address] 09-29-2024 20:42-0400 Body weight 100.[address] Kobi Adair MD Work Phone: 6(012)074-677131 [place] [address] 09-28-2024 11:37-0400 Body temperature 96.5 [degF] Dr. Kobi Adair MD Work Phone: 3(521)446-400031 [place] [address] 09-28-2024 11:37-0400 Diastolic blood pressure 89 mm[Hg] Dr. Kobi Adair MD Work Phone: 5(952)912-043131 [place] [address] 09-28-2024 11:37-0400 Heart rate 94 /min Dr. Kobi Adair MD Work Phone: 0(028)258-214531 [place] [address] 09-28-2024 11:37-0400 Respiratory rate 18 /min Dr. Kobi Adair MD Work Phone: 4(038)444-039131 [place] [address] 09-28-2024 11:37-0400 SaO2% (BldA) [Mass fraction] 96 % Dr. Kobi Adair MD Work Phone: 9(804)321-943831 [place] [address] 09-28-2024 11:37-0400 Systolic blood pressure 128 mm[Hg] Dr. Kobi Adair MD Work Phone: 1(209)959-501931 [place] [address] 09-28-2024 07:45-0400 Body height 167.[address] Kobi Adair MD Work Phone: 2(469)918-453231 [place] [address] 09-28-2024 07:45-0400 Body mass index (BMI) [Ratio] 36 kg/m2 Dr. Kobi Adair MD Work Phone: 8(816)478-063131 [place] [address] 09-28-2024 07:45-0400 Body weight 101.[address] Kobi Adair MD Work Phone: 3(776)306-100431 [place] [address] 09-25-2024 15:15-0400 Body temperature 98.2 [degF] Dr. Kobi Adair MD Work Phone: 6(881)452-485631 [place] [address] 09-25-2024 15:15-0400 Diastolic blood pressure 81 mm[Hg] Dr. Kobi Adair MD Work Phone: 4(989)215-099031 [place] [address] 09-25-2024 15:15-0400 Heart rate 86 /min Dr. Kobi Adair MD Work Phone: 2(313)983-994931 [place] [address] 09-25-2024 15:15-0400 Respiratory rate 16 /min Dr. Kobi Adair MD Work Phone: 1(080)118-378031 [place] [address] 09-25-2024 15:15-0400 SaO2% (BldA) [Mass fraction] 96 % Dr. Kobi Adair MD Work Phone: 6(418)908-218831 [place] [address] 09-25-2024 15:15-0400 Systolic blood pressure 127 mm[Hg] Dr. Kobi Adair MD Work Phone: 9(776)068-795531 [place] [address] 09-25-2024 12:45-0400 Inhaled oxygen flow rate 2 L/min Dr. Kobi Adair MD Work Phone: 2(610)424-208631 [place] [address] 09-25-2024 07:57-0400 Body height 167.[address] Kobi Adair MD Work Phone: 2(973)556-623531 [place] [address] 09-25-2024 07:57-0400 Body mass index (BMI) [Ratio] 35.6 kg/m2 Dr. Kobi Adair MD Work Phone: 7(442)310-425231 [place] [address] 09-25-2024 07:57-0400 Body weight 100.[address] Kobi Adair MD Work Phone: 2(882)228-158331 [place] [address] 09-23-2024 20:06-0400 Body temperature 99.1 [degF] Dr. Kobi Adair MD Work Phone: 4(733)462-238531 [place] [address] 09-23-2024 20:06-0400 Diastolic blood pressure 95 mm[Hg] Dr. Kobi Adair MD Work Phone: [facility] 09-23-2024 20:06-0400 Heart rate 85 /min Dr. Kobi Adair MD Work Phone: [facility] 09-23-2024 20:06-0400 Respiratory rate 18 /min Dr. Kobi Adair MD Work Phone: [facility] 09-23-2024 20:06-0400 SaO2% (BldA) [Mass fraction] 96 % Dr. Kobi Adair MD Work Phone: 5(370)987-182493 [address] 09-23-2024 20:06-0400 Systolic blood pressure 158 mm[Hg] Dr. Kobi Adair MD Work Phone: [facility] 09-23-2024 13:13-0400 Body height 170.[address] Kobi Adair MD Work Phone: 5(874)295-388210 [place] [address] 09-23-2024 13:13-0400 Body mass index (BMI) [Ratio] 35.7 kg/m2 Dr. Kobi Adair MD Work Phone: [facility] 09-23-2024 13:13-0400 Body weight 103.[address] Kobi Adair MD Work Phone: [facility] 10-28-2023 09:48-0400 Body height 167.6 cm Sriram Valles MD Work Phone: [facility] 10-28-2023 09:48-0400 Body mass index (BMI) [Ratio] 38.83 kg/m2 Sriram Valles MD Work Phone: [facility] 10-28-2023 09:48-0400 Body weight 109.14 kg Sriram Valles MD Work Phone: [facility] 10-28-2023 09:48-0400 Diastolic blood pressure 84 mm[Hg] Sriram Valles MD Work Phone: [facility] 10-28-2023 09:48-0400 Heart rate 89 /min Sriram Valles MD Work Phone: [facility] 10-28-2023 09:48-0400 SaO2% (BldA) [Mass fraction] 97 % Sriram Valles MD Work Phone: [facility] 10-28-2023 09:48-0400 Systolic blood pressure 133 mm[Hg] Sriram Valles MD Work Phone: [facility] 05-14-2022 09:37-0500 Body weight 110.22 kg Sriram Valles MD Work Phone: [facility] 05-14-2022 09:37-0500 Diastolic blood pressure 80 mm[Hg] Sriram Valles MD Work Phone: [facility] 05-14-2022 09:37-0500 Heart rate 92 /min Sriram Valles MD Work Phone: [facility] 05-14-2022 09:37-0500 SaO2% (BldA) [Mass fraction] 96 % Sriram Valles MD Work Phone: [facility] 05-14-2022 09:37-0500 Systolic blood pressure 118 mm[Hg] Sriram Valles MD Work Phone: [facility] Encounters Encounter Date Encounter Type Care Provider Facility Start: 12-23-2024 End: 12-23-2024 Emergency department patient visit Dr. Kobi Adair MD Work Phone: -Emergency Department Work Phone: Start: 12-02-2024 End: 12-02-2024 Patient encounter procedure Sriram Valles MD Work Phone: [facility] Cardiology [place] Comment on above: DORANTES (dyspnea on exer tion); Essential hypertension; Presence of aortocoronary bypass graft; Hypertensive heart disease without heart failure Start: 12-02-2024 End: 12-02-2024 ambulatory SRIRAM VALLES Facility:[facility] Start: 09-29-2024 End: 09-30-2024 Emergency department patient visit Dr. Kobi Adair MD Work Phone: -Emergency Department Work Phone: Start: 09-28-2024 End: 09-28-2024 Emergency department patient visit Dr. Kobi Adair MD Work Phone: -Emergency Department Work Phone: Start: 09-25-2024 End: 09-25-2024 ambulatory Kobi Adair Facility:[facility] Start: 09-25-2024 End: 09-25-2024 Non-patient / Non-visit Dr. Edu Dodson MD -[facility] Work Phone: Start: 09-23-2024 End: 09-25-2024 ambulatory Kobiaida Adair Facility:[facility] Start: 09-23-2024 End: 09-25-[address] Kobi Adair MD Work Phone: [facility] Work Phone: Start: 09-23-2024 End: 09-25-2024 Evaluation and management of inpatient Dr. Cory Conteh MD -[facility] 3 Work Phone: Start: 05-01-2024 End: 05-01-2024 ambulatory Kobi Adair Facility:[facility] Start: 04-20-2024 End: 05-07-2024 ambulatory ESSIE ELAM [facility] Start: 04-14-2024 ambulatory Toshia Pro Facility:[facility] Start: 04-14-2024 End: 04-18-2024 Evaluation and management of inpatient Kobi Bursroger Facility:[facility] Start: 12-17-2023 End: 12-17-2023 Telephone encounter Nikia Adair MD Work Phone: [facility] [place] Comment on above: Letter Start: 11-07-2023 Patient encounter procedure [facility] Provider [facility] Department Start: 10-28-2023 End: 10-28-2023 ambulatory SRIRAM VALLES Facility:[facility] Start: 10-28-2023 End: 10-28-2023 Patient encounter procedure Sriram Valles MD Work Phone: Cardiology Comment on above: Coronary artery dise ase involving bois forte coronary artery of bois forte heart without angina pectoris (Primary Dx); Mixed [...] of patient and report Nurse Card Admin [facility] Work Phone: Cardiology Comment on above: Screening [...] Instruct ions Start: 07-05-2022 E-mail encounter zita m caregiver Nurse Card Admin [facility] Work Phone: [facility] Start: 05-14-2022 End: 05-14-2022 Patient encounter procedure Sriram Valles MD Work Phone: Cardiology Comment on above: Screening for ischem ic heart disease (Primary Dx); Shortness of breath; Hypertensive heart disease with diastolic heart failure (HCC); Mixed hyperlipidemia; S/P CABG x 4 Start: 04-04-2022 ambulatory Claudia Henriquez [facility] [place] Comment on above: Population Health [facility] ([facility]) Start: 01-29-2022 End: 01-29-2022 Patient encounter procedure Nick Wall Work Phone: Podiatry Comment on above: Onychomycosis (Prima ry Dx); Pain in toe of left foot; Pain in toe of right foot; Diabetic polyneuropathy associated with type 2 diabetes mellitus (HCC); Ingrowing toenail of right foot Start: 11-07-2021 Telephone encounter Carolina castellanos APRN.[employer] Work Phone: [facility] Comment on above: Orders Start: 11-06-2021 End: 11-06-2021 Subsequent hospital visit by physician [facility] (I-Stat) Work Phone: Cat Scan Comment on above: Lung nodules [R91.8] Start: 10-24-2021 ambulatory Nikia Adair MD Work Phone: Internal Medicine [facility] [place] Start: 09-11-2021 Telephone encounter Carolina castellanos APRN.[employer] Work Phone: [facility] [place] Comment on above: Results Start: 08-16-2021 Telephone encounter Clint Pablo MD Work Phone: Radiation Oncology Comment on above: Patient Update Start: 07-27-2021 Telephone encounter Clint Pablo MD Work Phone: Radiation Oncology Comment on above: change appointment Start: 04-22-2018 Ambulatory [facility] Facility :[facility] Start: 08-20-2017 End: 08-20-2017 Ambulatory [facility] Facility:[facility] Start: 02-20-2017 End: 02-20-2017 [facility] Facility:[facility] Start: 01-09-2017 Ambulatory [facility] Procedures Date Procedure Procedure Detail Performing Clinician Start: 12-23-2024 Radiologic exam chest [address] Kobi Adair MD Work Phone: Start: 09-29-2024 Urnls dip stick/tablet reagent auto microscopy Dr. Kobi Adair MD Work Phone: Start: 09-29-2024 CT of abdomen and pelvis without contrast Dr. Kobi Adair MD Work Phone: Start: 09-29-[address] Kobi Adair MD Work Phone: Start: 09-29-[address] Kobi paiz MD Work Phone: Start: 09-28-[address] Kobi paiz MD Work Phone: Start: 09-28-2024 Urnls dip stick/tablet reagent auto microscopy Dr. Kobi Adair MD Work Phone: Start: 09-28-2024 Computed tomography of abdomen and pelvis with intravenous contrast Dr. Kobi Adair MD Work Phone: Start: 09-28-[address] Kobi Adair MD Work Phone: Start: 09-25-[address] Kobi martinez MD Work Phone: Start: 09-25-2024 Cystoscopy and retrograde pyelography Dr. Kobi Adair MD Work Phone: Start: 09-25-[address] Kobi Adair MD Work Phone: Start: 09-24-2024 Plain X-ray abdomen Dr. Kobi paiz MD Work Phone: Start: 09-23-2024 Urnls dip stick/tablet reagent auto microscopy Dr. Kobi Adair MD Work Phone: Start: 09-23-2024 CT of abdomen and pelvis without contrast Dr. Kobi Adair MD Work Phone: Start: 09-23-[address] Kobi Adair MD Work Phone: Start: 10-28-2023 Ecg routine ecg w/least 12 lds i&r only [facility] Provider Start: 07-09-2022 Myocardial spect multiple studies Sriram Valles MD Work Phone: Start: 11-06-2021 Ct thorax w/o contrast material Carolina Rice STORE MANAGEMENT TRA[employer]EE[employer] Work Phone: Start: 11-10-2019 History of coronary artery bypass grafting S/P CABG x 4 Clint Howe MD, MD Work Phone: Start: 11-19-2011 History of placement of stent for coronary artery disease S/P coronary artery stent placement Clint Howe MD, MD Work Phone: H/O: surgery Status post lase r lithotripsy of ureteral calculus Dr. Kobi Adair MD Work Phone: History of coronary artery bypass grafting S/P CABG x 4 Sriram Valles MD Work Phone: Plan of Treatment Date Care Activity Detail Author Start: 07-23-2032 Urine microalbumin profile DTa P,Tdap,Td Vaccine (4 - Td or Tdap) [facility] Start: 02-04-2028 Urine microalbumin profile [facility] Start: 12-06-2025 End: 12-06-2025 Patient encounter procedure 12/06/2025 2:20 PM EDT Office Visit Cardiology [address] [place], [place] [id number] Sriram Valles MD [address], [address] [place], [place] [id number] 1 year follow up. [facility] Comment on above: 1 year follow up. sameer cochran Start: 12-23-2024 [facility] Start: 12-11-2024 Glaucoma screening Dilated Retinal E xam [facility] Start: 12-07-2024 Influenza vaccination Influenza Vacc ine (#1) [facility] Start: 10-27-2024 End: 10-27-2024 Echocardiography ECHO Cardiology Routine Hypertensive heart disease with diastolic heart failure (HCC) Mitral valve disorder Expected: 10/27/2024, Expires: 10/27/2024 [facility] Comment on above: Expected: 10/27/2024 , Expires: 10/27/2024 Start: 10-26-2024 End: 10-26-2024 Patient encounter procedure 10/26/2024 1:40 PM EDT Office Visit Cardiology [address] [place] [id number] Sriram Valles MD [address], [address] [place], [place] [id number] 1 year follow up Cardiology Comment on above: 1 year follow up Start: 09-30-2024 [facility] Start: 09-29-2024 [facility] Start: 09-29-2024 Bacteria identified in Urine by Culture Urine Culture [facility] Start: 09-28-2024 Bacteria identified in Urine by Culture Urine Culture [facility] Start: 09-28-2024 [facility] Start: 09-28-2024 [facility] Start: 09-25-2024 End: 09-25-2024 Patient discharge [facility] Start: 09-23-2024 Application of intermittent pneumatic compression device [facility] Start: 09-23-2024 Admission procedure [facility] Start: 09-23-2024 Following clinical p athway protocol [facility] Start: 09-23-2024 Hospital admission, emergency, from emergency room, medical nature [facility] Start: 09-23-2024 Anes trurl fragmntj manj&/rmvl ureteral calculus ANESTH STONE REMOVAL [facility] Start: 09-23-2024 Cystoscopic laser lithotripsy of ureteric calculus CYSTOURETERO W/LITHOTRIPSY [facility] Start: 09-23-2024 Dilation of ureter CYSTO/URETE RO STRICTURE TX [facility] Start: 09-08-2024 End: 09-08-2024 Patient encounter procedure 09/08/2024 9:40 AM EDT Office Visit Cardiology [place] [address] Hypertensive heart disease with diastolic heart failure (HCC) [I11.0, I50.30] Cardiology Comment on above: Hypertensive heart d isease with diastolic heart failure (HCC) [I11.0, I50.30] Start: 04-08-2024 Advance Directive Discussion Advance Directive Discussion [facility] Start: 12-08-2023 Covid-19 Vaccine ( season) Covid-19 Vaccine () [facility] Start: 12-08-2023 Influenza vaccination Influenza Vacc ine (#1) [facility] Start: 10-28-2023 End: 10-23-2024 ECG COMPLETE [facility] Work Phone: Comment on above: Expected: 10/28/2023 , Expires: 10/23/2024 Start: 07-11-2023 Glaucoma screening Dilated Retinal E xam [facility] Start: 07-11-2023 Hepatitis C antibody , confirmatory test Dilated Retinal Exam [facility] Start: 05-10-2023 Ct thorax w/o contra st material CT CHEST WO IVCON Radiology Routine Lung nodules Expected: 05/10/2023 [facility] Work Phone: Comment on above: Expected: 05/10/2023 Start: 04-08-2023 Advance Directive Discussion Advance Directive Discussion [facility] Start: 01-29-2023 3 comp foot exam completed DIABETIC FOOT EXAM [facility] Start: 01-29-2023 Diabetic foot examination Diabetic F oot Exam [facility] Start: 12-07-2022 Covid-19 Vaccine () Covid-19 Vaccine () [facility] Start: 12-07-2022 Covid-19 Vaccine ( season) Covid-19 Vaccine () [facility] Start: 12-07-2022 Influenza vaccination [facility] Start: 09-08-2022 ANNUAL PCP TEAM RAILWAY ENGINEER SCOOTER DISEASE VISIT ANNUAL PCP TEAM CHRONIC DISEASE VISIT [facility] Start: 09-08-2022 BP CONTROLLED (<130/80) BP CON TROLLED (<130/80) [facility] Start: 05-29-2022 ANNUAL PCP TEAM RAILWAY ENGINEER SCOOTER DISEASE VISIT ANNUAL PCP TEAM CHRONIC DISEASE VISIT [facility] Start: 05-29-2022 BP CONTROLLED (<130/80) BP CON TROLLED (<130/80) [facility] Start: 05-21-2022 End: 05-14-2023 Echocardiography ECHO Cardiology Routine Shortness of breath Expected: 05/21/2022, Expires: 05/14/2023 [facility] Work Phone: Comment on above: Expected: 05/21/2022 , Expires: 05/14/2023 Start: 04-08-2022 ADVANCE DIRECTIVE DISCUSSION ADVANCE DIRECTIVE DISCUSSION [facility] Start: 03-10-2022 Hemoglobin A1c measurement HbA1C [facility] Start: 03-10-2022 Hemoglobin A1c/Hemoglobin.total in Blood HBA1C [facility] Start: 12-07-2021 Influenza vaccination INFLUENZA (#1) [facility] Start: 11-09-2021 Hepatitis B screening URINE ALBUMIN:CREATININE RATIO [facility] Start: 11-09-2021 Hepatitis B surface antibody level LDL CHOLESTEROL [facility] Start: 10-24-2021 End: 12-24-2021 ALBUMIN/CREAT RATIO RND UR ALBUMIN/CREAT RATIO RND UR Lab Routine Type 2 diabetes mellitus with diabetic nephropathy, with long-term current use of insulin (HCC) Expected: 10/24/2021, Expires: 12/24/2021 [facility] Work Phone: Comment on above: Expected: 10/24/2021 , Expires: 12/24/2021 Start: 10-24-2021 End: 12-24-2021 SCHEDULE LAB TESTING SCHEDULE LAB TESTING Lab Routine Expected: 10/24/2021, Expires: 12/24/2021 [facility] Work Phone: Comment on above: Expected: 10/24/2021 , Expires: 12/24/2021 Start: 09-11-2021 End: 11-11-2021 Comprehensive metabolic 2000 panel - Serum or Plasma COMP METABOLIC PANEL Lab Routine Elevated alkaline phosphatase level Expected: 09/11/2021, Expires: 11/11/2021 [facility] Work Phone: Comment on above: Expected: 09/11/2021 , Expires: 11/11/2021 Start: 09-11-2021 End: 11-11-2021 Gamma glutamyl transferase [Enzymatic activity/volume] in Serum or Plasma GGT BLD Lab Routine Elevated alkaline phosphatase level Expected: 09/11/2021, Expires: 11/11/2021 [facility] Work Phone: Comment on above: Expected: 09/11/2021 , Expires: 11/11/2021 Start: 08-26-2021 3 comp foot exam completed DIABETIC FOOT EXAM [facility] Start: 06-08-2021 Hemoglobin A1c/Hemoglobin.total in Blood HBA1C [facility] Start: 06-08-2021 Hepatitis C antibody , confirmatory test DILATED RETINAL EXAM [facility] Start: 06-07-2021 COVID-19 VACCINE (5 - Booster) COVID-19 VACCINE (5 - Booster) [facility] Start: 04-08-2021 ADVANCE DIRECTIVE DISCUSSION ADVANCE DIRECTIVE DISCUSSION [facility] Start: 11-12-2020 COVID-19 VACCINE (4 - Booster) COVID-19 VACCINE (4 - Booster) [facility] Start: 01-06-2010 Medicare Annual Well ness Visit Medicare Annual Wellness Visit [facility] Start: 05-30-2009 SHINGRIX VACCINE (2 of 3) FATIMA GRIX VACCINE (2 of 3) [facility] Start: 2005 Hepatitis B Vaccine (1 of 3 - Risk 3-dose series) Hepatitis B Vaccine (1 of 3 - Risk 3-dose series) [facility] Start: 2005 RSV Vaccine (1 - 1-d ose 60+ series) RSV Vaccine (1 - 1-dose 60+ series) [facility] Start: 1963 Anxiety Screening Anxiety Screening [facility] Ct thorax w/o contra st material CT CHEST WO IVCON Radiology Routine Lung nodules 11/06/2021 9:50 AM EDT [facility] Work Phone: End: 05-09-2023 ECG COMPLETE ECG COMPLETE ECG Routine Screening for ischemic heart disease 1 Occurrences starting 05/09/2022 until 05/09/2023 [facility] Work Phone: Comment on above: 1 Occurrences starti ng 05/09/2022 until 05/09/2023 End: 12-02-2025 Echocardiography ECHO Cardiology Routine DORANTES (dyspnea on exertion) Essential hypertension 1 Occurrences starting 12/02/2024 until 12/02/2025 [facility] Work Phone: Comment on above: 1 Occurrences starti ng 12/02/2024 until 12/02/2025 NM CARDIAC PERF STRESS/PHARM NM CARDIAC PERF STRESS/PHARM Radiology Routine Shortness of breath Ordered: 05/14/2022 [facility] Work Phone: Comment on above: Ordered: 05/14/2022 Patient Education [facility] Work Phone: Patient referral [facility] Work Phone: Urine culture [facility] Urine culture [facility] Immunizations Immunization Date Immunization Notes Care Provider Fa cility 05-11-2024 RSV Adult BiValent (Abrysvo) Dr. Kobi Adair MD Work Phone: [facility] 01-10-2024 influenza, high dose seasonal, preservative-free Dr. Kobi Adair MD Work Phone: [facility] 01-10-2024 Pfizer Covid-19 (Comirnaty) Dr. Kobi Adair MD Work Phone: [facility] 01-10-2024 influenza virus vacc ine, unspecified formulation Sriram Valles MD Work Phone: [facility] 01-08-2023 influenza, injectabl e, quadrivalent, preservative free Dr. Kobi Adair MD Work Phone: [facility] 01-08-2023 influenza virus vacc ine, unspecified formulation Sriram Valles MD Work Phone: [facility] 07-23-2022 tetanus toxoid, redu giovanna diphtheria toxoid, and acellular pertussis vaccine, adsorbed Dr. Kobi Adair MD Work Phone: [facility] 01-22-2022 Covid Pfizer Bivalen t Booster Dr. Kobi Adair MD Work Phone: [facility] 07-24-2021 Pneumococcal Vaccine PCV20 (Prevnar 20) Dr. Kobi Adair MD Work Phone: [facility] 07-24-[address] Kobi Adair MD Work Phone: [facility] 04-12-2021 Covid (Pfizer) Dr. Barry Adair MD Work Phone: [facility] 03-10-2021 influenza, high-dose , quadrivalent vaccine (FLUZONE HIGH DOSE QUADRIVALENT) Clint Howe MD, MD Work Phone: [facility] 03-10-2021 influenza virus vacc ine, unspecified formulation Injection Wstr Work Phone: [facility] 07-13-2020 COVID-19 vaccine, ag e 12+ yr (PFIZER-BIONTECH - PURPLE TOP) Clint Howe MD, MD Work Phone: [facility] Work Phone: 07-05-2020 Covid (Pfizer) Dr. Barry Adair MD Work Phone: [facility] 06-22-2020 COVID-19 vaccine, ag e 12+ yr (PFIZER-BIONTECH - PURPLE TOP) Clint Howe MD, MD Work Phone: [facility] Work Phone: 06-06-2020 COVID-19 vaccine, ag e 12+ yr (PFIZER-BIONTECH - PURPLE TOP) Carolina Rice STORE MANAGEMENT TRAINEE[employer] POTTER Work Phone: [facility] 01-11-2020 influenza, high-dose , quadrivalent vaccine (FLUZONE HIGH DOSE QUADRIVALENT) Carolina Rice STORE MANAGEMENT TRAINEE.[employer] POTTER Work Phone: [facility] 02-05-2019 influenza, high dose seasonal, preservative-free Clint Howe MD, MD Work Phone: [facility] 02-03-2018 influenza, high dose seasonal, preservative-free Clint Howe MD, MD Work Phone: [facility] 07-10-[address] Kobi Adair MD Work Phone: [facility] 01-10-2017 influenza, high dose seasonal, preservative-free Clint Howe MD, MD Work Phone: [facility] 02-01-2016 influenza, high dose seasonal, preservative-free Clint Howe MD, MD Work Phone: [facility] Work Phone: 02-01-2016 pneumococcal polysaccharide vaccine, 23 valent Clint Howe MD, MD Work Phone: [facility] Work Phone: 07-18-2015 pneumococcal conjuga te vaccine, 13 valent Clint Howe MD, MD Work Phone: [facility] 01-31-2015 influenza, high dose seasonal, preservative-free Clint Howe MD, MD Work Phone: [facility] Work Phone: 01-13-2014 influenza, injectabl e, quadrivalent, preservative free Dr. Kobi Adair MD Work Phone: [facility] 01-13-2014 influenza, seasonal, injectable Clint Howe MD, MD Work Phone: [facility] 02-21-2013 influenza virus vacc ine, unspecified formulation Clint Howe MD, MD Work Phone: [facility] Work Phone: 02-06-[address] Kobi Adair MD Work Phone: [facility] 02-06-2013 influenza, seasonal, injectable, preservative free Carolina Podlogar [employer]ORE MANAGEMENT TRA[employer]EE[employer] Work Phone: [facility] 11-04-2012 diphtheria, tetanus toxoids and acellular pertussis vaccine Dr. Kobi Adair MD Work Phone: [facility] 04-08-2012 pneumococcal polysaccharide vaccine, 23 valent Carolina Podlogar STORE MANAGEMENT TRA[employer]EE.[employer] Work Phone: [facility] 04-08-2012 pneumococcal vaccine , unspecified formulation Dr. Kobi Adair MD Work Phone: [facility] 02-16-2012 influenza virus vacc ine, unspecified formulation Clint Howe MD, MD Work Phone: [facility] 01-19-2011 influenza virus vacc ine, unspecified formulation Clint Howe MD, MD Work Phone: [facility] 01-09-2010 influenza virus vacc ine, unspecified formulation Clint Howe MD, MD Work Phone: [facility] Work Phone: 04-04-2009 zoster vaccine, live Clint Howe MD, MD Work Phone: [facility] Work Phone: 03-21-2009 novel influenza-H1N1 -09, preservative-free, injectable Carolina Podlogar [employer] MANAG[employer] TRA[employer]EE[employer] Work Phone: [facility] 03-17-2009 novel influenza-H1N1 -09, all formulations Clint Howe MD, MD Work Phone: [facility] Work Phone: 01-21-2009 influenza virus vacc ine, unspecified formulation Clint Howe MD, MD Work Phone: [facility] 07-17-2008 pneumococcal polysaccharide vaccine, 23 valent Clint Howe MD, MD Work Phone: [facility] Work Phone: 01-23-2008 influenza virus vacc ine, whole virus Clint Howe MD, MD Work Phone: [facility] Work Phone: 11-18-2007 pneumococcal polysaccharide vaccine, 23 valent Clint Howe MD, MD Work Phone: [facility] Work Phone: 02-06-2007 influenza virus vacc ine, unspecified formulation Clint Howe MD, MD Work Phone: [facility] Work Phone: 06-07-2003 tetanus and diphther ia toxoids, adsorbed, preservative free, for adult use (2 Lf of tetanus toxoid and 2 Lf of diphtheria toxoid) Clint Howe MD, MD Work Phone: [facility] Work Phone: Payers Date Payer Category Payer Unknown [id number] 2024 Self-pay 2024 Unknown [id number] 2019 Private Health Insurance DANILO GONSALEZ MEDICARE SUPPLEMENT [id number] 2019-Present [phone] [address] [place] [id number] Indemnity [id number] 2019 Private Health Insurance [id number] 2019 Medicare [id number] 2010 Medicare MEDICARE MEDICAR E A AND B [id number] 2010-Present [phone] [address] [address] [place] [address] Medicare [id number] 2010 Medicare [id number] 2010 Medicare [id number] 1945 Unknown [id number] Medicare [id number] Unknown [id number] Unknown [id number] Unknown [id number] Unknown [id number] Unknown [id number] Unknown [id number] Unknown [id number] Unknown [id number] Unknown [id number] Unknown [id number] Unknown [id number] Social History Date Type Detail Facility Start: 09-26-2010 End: 12-23-2024 Tobacco smoking status NHIS Ex-smoker [facility] Start: 09-27-1963 End: 09-26-1973 History of tobacco use Current smoker [facility] Start: 09-26-2010 End: 10-29-2022 Cigarettes smoked current (pack per day) - Reported 0.5 [facility] Start: 09-26-2010 End: 12-02-2024 Tobacco use and exposure Former smokeless tobacco user [facility] End: 01-23-2007 History of tobacco use Chews Tobacco [facility] Start: 05-29-2021 End: 12-02-2024 Alcohol intake Current drinker of alcohol (finding) [facility] Start: 12-13-2020 End: 09-07-2021 History SDOH Alcohol Frequency 2 [facility] Start: 12-13-2020 End: 09-07-2021 History SDOH Alcohol Std Drinks 1 [facility] Start: 06-23-2013 History SDOH Alcohol Comment Rarely [facility] Start: 12-13-2020 History SDOH Social Connections Phone 5 [facility] Start: 12-13-2020 History SDOH Social Connections Meetings 3 [facility] Start: 12-13-2020 History SDOH Physical Activity DPW 0 [facility] Start: 12-13-2020 Education 21 [facility] Start: 1945 Sex Assigned At Male [facility] Start: 08-29-2021 End: 09-13-2021 Exposure to SARS-CoV-2 (event) Not sure [facility] Start: 09-27-1963 End: 09-26-1973 History of tobacco use Cigarette Smoker [facility] Start: 12-13-2020 End: 10-29-2022 Social connection and isolation panel [facility] Do you belong to any clubs or organizations such as mormon groups, unions, fraternal or athletic groups, or school groups? Yes [facility] Are you now , , , , never or living with a partner? [facility] How often to you hav e a drink containing alcohol? Monthly or less [facility] How many standard dr inks containing alcohol do you have on a typical day? 1 or 2 [facility] How often do you hav e 6 or more drinks on 1 occasion? Never [facility] Start: 03-09-2012 How hard is it for you to pay for the very basics like food, housing, medical care, and heating Not hard at all [facility] Do you feel stress - tense, restless, nervous, or anxious, or unable to sleep at night because your mind is troubled all the time - these days [OSQ] Only a little [facility] (I/We) worried shamar er (my/our) food would run out before (I/we) got money to buy more. Never true [facility] In the past 12 month s, was there a time when you were not able to pay the mortgage or rent on time? No [facility] Start: 2019 Gender identity Identifies as male gender (finding) [facility] Start: 02-05-2019 Sexual orientation Heterosexual (finding) [facility] Start: 05-13-2013 Alcohol Alcohol [facility] Start: 05-13-2013 Lives Lives [facility] Start: 05-13-2013 Tobacco Use Tobacco Use [facility] Medical Equipment Procedure Code Equipment Code Equipment Original Text Equipment Identifier Dates Cystoscopy, with retrograde pyelogram, ureteroscopy, laser procedure, and stent inser ([id number]) Polymeric ureteral stent [id number] FDA Start: 09-25-2024 Use as directed with insulin pen Dx: E11.21 DM: yes insulin: yes [id number] Start: 04-19-2016 Comment on above: Use as directed with insulin pen Dx: E11.21 DM: yes insulin: yes Goals Date Patient Goal Desired Activity /State Personal health goal Functional Status Date Assessment Result Facility 09-25-2024 Functional status [facility] Work Phone: 08-18-2014 Are you deaf, or do you have serious difficulty hearing Yes 08/18/2014 9:44 AM Rima Alexander LPN Yes [facility] 08-18-2014 Are you blind, or do you have serious difficulty seeing, even when wearing glasses No 08/18/2014 9:44 AM Rima Alexander LPN No [facility] 08-18-2014 Do you have serious difficulty walking or climbing stairs No 08/18/2014 9:44 AM Rima Alexander LPN No [facility] 08-18-2014 Do you have difficul ty dressing or bathing No 08/18/2014 9:44 AM Rima Alexander LPN No [facility] 08-18-2014 Because of a physica l, mental, or emotional condition, do you have difficulty doing errands alone such as visiting a physician's office or shopping No 08/18/2014 9:44 AM Rima Alexander LPN No [facility] Mental Status Date Assessment Result Facility 09-25-2024 Cognitive function Level Of Cons ciousness Awake;Alert;Appropriate;Fol lows Commands [facility] Work Phone: 09-25-2024 Cognitive function Voice/Name [facility] Work Phone: 09-24-2024 Cognitive function Appropriate;Cooperativ e [facility] Work Phone: 08-18-2014 Because of a physica l, mental, or emotional condition, do you have serious difficulty concentrating, remembering, or making decisions No 08/18/2014 9:44 AM Rima Alexander LPN No [facility] Clinical Notes 03-24-2015 to 12-23-2024 Note Date & Type Note Facility 12-23-2024 Discharge summary [facility] 12-23-2024 Radiology Diagnostic study note [facility] Imaging Services [address] [place], [place] [id number] Chest PA and Lateral MR#: [id number] Acct: [id number] Name: KIMBERLY NAVA Rep #: [id number] : 1945 M [id number] From: Sophia Fuentes MD PCP: [facility] Status: REG ER Study:Chest PA and Lateral Date of Exam: 12/23/24 Exam# [id number] Ordering Dr: Jagdeep Molina MD PROCEDURE: CHEST PA AND LATERAL 12/23/2024 REASON FOR EXAM: CHEST PAIN DUE TO TRAUMA TECHNIQUE: Procedure Code: RADCXR Modality: DX Procedure: CHEST PA AND LATERAL COMPARISON: May 19, 2021 FINDINGS: Hardware: Prior median sternotomy Heart: Enlarged Mediastinum: Aorta is tortuous and atherosclerotic. Lungs: No consolidation. No pleural effusion or pneumothorax. Mild scarring inthe periphery of the right mid and lower lung and adjacent to the diaphragm. Bones: Degenerative changes are identified within the thoracic spine. RAD/Chest PA and Lateral IMPRESSION: Cardiac enlargement. Tortuous, atherosclerotic aorta. Reading Location: [facility] CC: Dr. Wally Molina MD; [facility] ~ Psychopaedic Nurse: Signed [facility] 12-23-2024 Discharge summary Note Date/Time December 23, 2024 4:21pm [facility] Medical Records Department [address] [place] [address] Emergency Department Summary 12/23/24 MR#: [id number] Acct: [id number] Name: KIMBERLY NAVA Rep #:[id number] : 1945 79 From: Wally Molina MD PCP: [facility] Status:REG ER Location: ED HPI History of Present Illness Chief Complaint: Fall Detail of Chief Complaint: Patient presents because the retinal top cutter at the [facility] would Informant: patient and spouse/S.O. Onset/Context/Timing Onset: Days (Patient had a near fall hitting his head against a Bldg. 2 days ago. He presents because he needs evaluation) Mechanism/Context: Blunt Injury and Fall Location of pain/injuries: Right forearm Quality of Pain: - (Patient denies headache or any visual or neurologic symptoms. He does report anterior chest pain worse with movement) Location: Sternal region Current Severity: Mild Maximum Severity: Moderate Worsened by: Twisting Relieved by: Essentially resolved if he remains still Associated Symptoms Associated Symptoms: Negative for Parasthesias, Weakness, Loss of function, Inability to ambulate, Loss of consciousness or Amnesia Narrative Narrative: Patient is a 79-year-old male. He has macular degeneration. He was seen by bernardo top cutter at the [facility] located in [place] this afternoon. The top cutter would not inject his eyes because he bumped his head and had chest pain. Patient presents for evaluation so he came receive the injection. There is a discrepancy tween what his and he believes. He believes he needs a CAT scan says he needs checked. He denies headache. Denies double vision, blurred vision loss of vision from baseline. Has ringing in ears or decreased hearing. No trouble with speech or swallowing. Denies any new paresthesia or anesthesia. He denies problems with using his arms or legs. He denies problems with coordination or balance or finemotor skills. He denies abdominal pain, nausea or vomiting. Patient is not on an anticoagulant he is on a antithrombotic. He is on Plavix because he has a stent. Prior similar symptoms: No Recent Illness/Hospitalization: No PFSH PFS Medical History Former tobacco use History of [...] CHF (congestive heart failure) Hyperlipidemia Home Medications ?Medication ?Instructions ?Recorded ?Last Taken ?Type aspirin 81 mg chewable tablet 81 mg PO DAILY heart hea lth 03/10/13 09/27/24 History atorvastatin 40 mg tablet 40 mg PO QHS cholesterol 06/1809/27/24 History levothyroxine 200 mcg tablet 200 mcg PO DAILY thyroid 03/10/13 09/27/24 History (Levoxyl) nitroglycerin 0.4 mg sublingual 0.4 mg sublingual Q5M PRN Chest 03/10/13 05/02/18 History tablet Pain sertraline 50 mg tablet 50 mg PO DAILY mental health 04/14/15 09/27/24 History famotidine 10 mg tablet 10 mg PO DAILY reflux 09/27/24 History semaglutide 0.25 mg or 0.5 mg (2 0.5 mg subcut TH diab etes 02/18/21 09/24/24 History mg/1.5 mL) subcutaneous pen injector (Ozempic) carbidopa ER 25 mg-levodopa 100 mg 1 tab PO QHS tremor s 04/14/24 09/27/24 History tablet,extended release multivitamin with iron 1 tab PO DAILY multivitamin 04/14/24 09/27/24 History vit C 250 mg-vit E 90 mg-zinc 40 1 tab PO BID vitamin 04/14/24 09/27/24 History mg-copper 1 [id number] capsule (PreserVision AREDS-2) clopidogrel 75 mg tablet 75 mg PO DAILY antiplatelet 09/23/24 09/27/24 History insulin glargine 100 unit/mL (3 30 unit subcut BID heydi betes 09/23/24 09/27/24 History mL) subcutaneous pen (Lantus Solostar U-100 Insulin) losartan 25 mg tablet 12.5 mg PO DAILY htn 5 09/27/24 History potassium chloride 10 mEq 10 meq PO DAILY supplement 0 09/23/24 09/27/24 History tablet,extended release (Klor-Con) tamsulosin 0.4 mg capsule (Flomax) 0.8 mg PO QHS bladd er 09/23/24 09/27/24 History trospium 20 mg tablet 20 mg PO BID antispasmodic 0 09/23/24 09/27/24 History cholecalciferol (vitamin D3) 50 2,000 unit PO DAILY 09/27/24 History mcg (2,000 unit) chewable tablet empagliflozin 25 mg tablet 25 mg PO DAILY 09/24/24 History furosemide 20 mg tablet 20 mg PO Q12H diuretic 09/2409/27/24 History magnesium oxide 420 mg tablet 420 mg PO QHS supplement 09/24/24 09/27/24 History metoprolol tartrate 25 mg tablet 50 mg PO Q12H htn 09/27/24 History trazodone 50 mg tablet 25 mg PO QHS PRN sleep 09/2409/27/24 History ciprofloxacin HCl 500 mg tablet 500 mg PO BID #14 tabs 09/25/24 09/27/24 Rx oxycodone 5 mg tablet 5 mg PO Q6H PRN pain 7 days #20 09/25/24 09/27/24 Rx tabs cephalexin 500 mg capsule 500 mg PO Q8 #15 CAPSULES Unknown Rx Allergy/AdvReac Type Severity Reaction Status Date / Time Anesthetics - Amide Type - Allergy Other Verified 12/23/24 14:47 [facility] [place] Type- Allergy Other Verified 12/23/24 14:47 Parabens albuterol AdvReac Mild thrush Verified 12/23/24 14:47 Family History Father CAD (coronary artery disease) Myocardial infarction Diabetes Heart disease Hypertension Brother Hypertension Diabetes Mother No problems noted. Surgical History History of ureter stent S/P thyroidectomy S/P arthroscopic knee surgery S/P hemorrhoidectomy Hx of elbow surgery S/P CABG x 4 S/P coronary artery stent placement Hx of mitral valve repair Social History household members: spouse Smoking Status: Former smoker quit date: 09/26/73 pack-years: 5 how long ago did patient quit smoking: Additional chew tobacco use history, quit 01/15/2007. alcohol intake: never substance use type: does not use ROS ROS ED Constitutional Constitutional ED: Denies chills or fever(s) Eyes Eyes: Denies blurry vision or change in vision ENT ENT ED: Denies ear pain, rhinorrhea or sore throat Cardiovascular Cardiovascular: Denies chest pain or palpitations Respiratory/Chest Respiratory/Chest: Denies cough, dyspnea or dyspnea on exertion Gastrointestinal Gastrointestinal: Denies abdominal pain, nausea or vomiting Genitourinary Genitourinary ED: Denies dysuria, hematuria or urinary frequency Musculoskeletal Musculoskeletal: Denies myalgias Integumentary Reports other Details: Bruises noted predominantly right forearm and distal right arm Neurologic Neurologic: Denies headache(s), paresthesias or weakness Psychiatric Psychiatric: Denies anxiety or depression Endocrine Endocrinology: Denies cold intolerance or heat intolerance Hematologic/Lymphatic Hematologic/Lymphatic: Reports easy bruising; Denies easy bleeding or lymphadenopathy EXAM Physical Exam Const Vital Signs: 12/23/24 14:44 12/23/24 15:28 12/23/24 15:55 Temperature 97.8 F Temperature Source Oral Pulse Rate 92 90 Respiratory Rate 17 16 Respiratory Effort Normal Non-Labored Respiratory Depth Normal Respiratory Pattern Normal Blood Pressure 125/77 H 126/76 H Blood Pressure Mean 93 92 Pulse Ox 94 96 Oxygen Delivery Method Room Air Room Air Room Air Positive well nourished and well developed General Appearance ED: well developed and NAD HEENT HEENT Narrative: Head is atraumatic and normocephalic. Ears are normal. Nares are patent. Posterior pharynx is normal. atraumatic; Negative for tenderness Eyes PERRL and EOMs intact bilaterally General Eye ED: Yes other Other Details: There is no subconjunctival hemorrhage. Neck full ROM General: Negative for tenderness Chest Wall palpation of chest normal Chest Narrative: Patient has pain with patient over the sternum near the right parasternal border. There is no crepitus or subcutaneous air. Resp normal respiratory effort and clear to auscultation bilaterally Cardio regular rhythm, S1 normal heart sound, S2 normal heart sound and no murmurs Rate: regular rate GI normal to inspection, nondistended, normoactive bowel sounds, non-tender, non-distended and no masses Extremity Extremity Narrative: Bruising right upper extremity. No point bony tenderness Neuro oriented x3, CN's II-XII intact bilaterally, moves all extremities, no focal motor deficits and no sensory deficits noted [place] Coma Scale: document GCS findings Spontaneous Obeys Commands Oriented 15 Sensorium / Orientation: alert Deep Tendon Reflexes: Rt Triceps (C7): 2+, Lt Triceps (C7): 2+, Rt Biceps (C5, C6): 2+, Lt Biceps (C5, C6): 2+, Rt Brachioradialis (C6): 2+, Lt Brachioradialis(C6): 2+, Rt Patellar (L4): 2+, Lt Patellar (L4): 2+, Rt Ankle (S1): 2+ and Lt Ankle (S1): 2+ Deep Tendon Reflexes Back: Rt Patellar (L4): 2+, Lt Patellar (L4): 2+, Rt Ankle (S1): 2+ and Lt Ankle (S1): 2+ Plantar Reflex: Downgoing: bilateral (There is no clonus at the ankles.) Psych mental status grossly normal and thought process normal Skin no rashes or lesions noted and no jaundice Skin Narrative: Bruising as previously noted under the extremity portion of the EMR MDM MDM MDM Narrative Medical decision making narrative: With no evidence of trauma the fact that it is 2 days since the trauma and trauma was minimal with a normal neurologic exam and no complaint of headache orneurologic symptoms in my professional opinion patient does not need a CAT scan of the head. Attempts were made at contacting the retinal top cutter at the [facility]. I was informed by the audio visual secretary that they had called left. She will have a contractor general building review his records to determine if he truly does or does not need a CAT scan prior to receiving therapy for his macular degeneration. Since he does have point chest tenderness will obtain chest x-rayto evaluate for fracture, pneumothorax and contusion. In my opinion no other imaging or laboratory testing needed. History & Record Review Discussion w/independent historian: Significant other Additional record(s) reviewed:: Other (Contacted [facility] to clarify if patient does or does not need a CAT scan.) Radiography Chest X-Ray - ED: 2 View, Read by ED Physician, Mediastinum, Bony Structures, NoAcute Disease, Chronic Changes and - (The hilum is not widened. The sternotomy wires are noted to be intact. The inspiratory volume is suboptimal.) Diagnostic Testing: Clinical Impression(s) from Imaging Studies Chest X-Ray 12/23/24 15:37 IMPRESSION: Cardiac enlargement. Tortuous, atherosclerotic aorta. Reading Location: [facility] EKG Initial EKG: Attestation: I personally reviewed and interpreted this EKG as follows: (EKG was obtained per nurse protocol.) Interpretation: Sinus Rhythm (Normal sinus rhythm rate 91. WA interval 186 ms previous duration 92 ms. QT duration 292 ms. [place] is normal. QT CB is prolonged at 482. There is no acute ischemic changes noted.) Treatment and Re-Evaluation Narrative[facility] and were informed of chest x-ray results. Patient was informed because he has no neurosymptoms no complaint of headache and a normal neurologic exam and the fact that this happened over 48 hours ago without evidence of head trauma imaging is not warranted. He is willing and excepts that if I write on his discharge home-going instructions he is cleared that this should be sufficient. He and his are both satisfied with my explanation of why a CT was not at ordered and solution. Discharge Plan Triage Chief Complaint: Fall ED Provider: Wally Molina Dx/Rx/DC Orders Clinical Impression: Musculoskeletal chest pain, Contusion of right forearm, initial encounter, Antiplatelet or antithrombotic long-term use, Elevated blood pressure reading with diagnosis of hypertension, Chronic kidney disease (CKD) Instructions: ED Chest Pain, Noncardiac Prescriptions: No Action atorvastatin 40 MG tablet 40 mg PO QHS Patient Comments: cholesterol nitroglycerin 0.4 MG tablet 0.4 mg sublingual Q5M PRN (Reason: Chest Pain) Patient Comments: chest pain aspirin 81 MG tablet,chewable 81 mg PO DAILY Patient Comments: heart health levothyroxine [Levoxyl] 200 MCG tablet 200 mcg PO DAILY Patient Comments: thyroid sertraline 50 MG tablet 50 mg PO DAILY Ozempic 0.25 mg or 0.5 mg(2 mg/1.5 mL) Pen Injector 0.5 mg SUBCUT TH famotidine 10 mg Tablet 10 mg PO DAILY carbidopa-levodopa 25-100 mg tablet extended release 1 tab PO QHS multivitamin with iron Tablet 1 tab PO DAILY PreserVision AREDS-2 250-90-40-1 mg capsule 1 tab PO BID tamsulosin [Flomax] 0.4 mg capsule 0.8 mg PO QHS losartan 25 mg tablet 12.5 mg PO DAILY trospium 20 mg tablet 20 mg PO BID Rx Instructions: administer on an empty stomach clopidogrel 75 mg tablet 75 mg PO DAILY potassium chloride [Klor-Con 10] 10 mEq tablet extended release 10 meq PO DAILY insulin glargine [Lantus Solostar U-100 Insulin] 100 unit/mL (3 mL) insulin pen 30 unit subcut BID magnesium oxide 420 mg tablet 420 mg PO QHS empagliflozin 25 mg tablet 25 mg PO DAILY cholecalciferol (vitamin D3) 50 mcg (2,000 unit) tablet,chewable 2,000 unit PO DAILY trazodone 50 mg tablet 25 mg PO QHS PRN (Reason: sleep) furosemide 20 mg tablet 20 mg PO Q12H metoprolol tartrate 25 mg Tablet 50 mg PO Q12H oxycodone 5 mg tablet 5 mg PO Q6H PRN (Reason: pain) 7 Days Qty: 20 0RF ciprofloxacin HCl 500 mg tablet 500 mg PO BID Qty: 14 0RF cephalexin 500 mg capsule 500 mg PO Q8 Qty: 15 0RF [facility] [Primary Care Provider, None] Activity Restrictions/Additional Instructions: In my professional opinion with no evidence of head trauma, no complaint of headache, no neurologic symptoms and a GCS of 15 with a normal neurologic exam imaging is not indicated especially since the minor trauma that occurred greaterthan 48 hours ago there is no indication for advanced imaging. Print Language: Niuean Disposition Disposition: Home, Self Care What to do if you have Problems For any increased pain, shortness of breath, bleeding, nausea or vomiting, chestpain, or any unexpected problems, contact your Primary Care Provider. Call [facility] ([phone]) or report to the closest Emergency Room. Call 911 if necessary. 12/23/24 1621 <Electronically signed by Wally Molina MD> Cosigner Signature (if applicable): CC: [facility] ~ Signed [facility] Work Phone: [phone] 937-164409-15-2025 Hospital Discharge instructionsAdditional Instructions In my professional opinion with no evidence of head trauma, no complaint of headache, no neurologic symptoms and a GCS of 15 with a normal neurologic exam imaging is not indicated especially since the minor trauma that occurred greater than 48 hours ago there is no indication for advanced imaging.[facility] Work Phone: 1(561) 752-892408-27-2025 NoteHNO ID: [id number] Author: SRIRAM VALLES MD Service: ? Author Type: Physician Type: Progress Notes Filed: 12/02/2024 14:19 Note Text: Sriram Valles MD Interventional Cardiology [address] [place], [place] [id number] Chief Complaint Patient presents with: CARD Follow Up Annual: CAD HISTORY OF PRESENT ILLNESS: Mr. Nava is a 79-year-old male with a history of severe CAD, status post CABG, presenting for follow-up. The patient reports no current issues with his Heart and denies experiencing chest pain or dyspnea. He admits to being less active than recommended, attributing this to laziness. He uses a cane primarily for stability when navigating unfamiliar areas but does not require it at home. He underwent CABG with BOWLING to the LAD, and vein grafts to the diagonal and PDA. Mitral valve ring repair for severe MR A TTE performed in 05/2022 showed no significant abnormalities. He currently takes atorvastatin, aspirin, famotidine, Lasix, insulin, and losartan. Cardiac Risk Factors age (male over 45, female over 55), hyperlipidemia, obesity, diabetes, hypertension, family history of CAD PAST MEDICAL HISTORY Diagnosis Date Acute, but ill-defined, cerebrovascular disease 1970s TIA Cancer ([facility]) 2007 thryoid Chronic rhinitis Congestive heart failure ([facility]) Coronary artery disease Dr. Hogue Depression Diabetes ([facility]) DVT (deep venous thrombosis) ([facility]) 2007 Esophageal reflux Generalized osteoarthrosis, unspecified site Hemorrhage of gastrointestinal tract, unspecified History of tobacco use Hypothyroidism Nonspecific (abnormal) findings on radiological and other examination of genitourinary organs 11/18/2007 He has R pelvic Kidney - congenital Obesity (BMI 30-39.9) Obstructive sleep apnea Bipap, [facility] - PAST MEDICAL HISTORY OF [facility]-07 [facility]. bypass and valve repair- DVT after Pure hypercholesterolemia Restless leg syndrome Rheum heart dis NEC/NOS CHILD Rheumatic fever S/P MVR (mitral valve repair) Sciatica Sensorineural hearing loss, unspecified Sensorineural hearing loss Stable angina Unspecified essential hypertension Unspecified tinnitus Tinnitus PAST [...] of Onset None Mother 98 Heart Father [facility] AGE 67 Diabetes Father Hypertension Brother Diabetes Brother other (malignant hyp) Paternal Aunt other (malignant hyperthermia) Other 1st cousin SOCIAL HISTORY[1] ALLERGIES Allergen Reactions Inhaled Anesthetics* Mevacor [Lovastatin] [...] empty stomach. For thyroid. 30 tablet 2 clopidogrel (PLAVIX) 75 mg tablet Take 1 tablet by mouth once daily. 90 tablet 0 famotidine (PEPCID) 10 mg tablet Take 1 tablet by mouth twice daily. (Patient taking differently: Take 20 mg by mouth two times a day.) 180 tablet 0 trospium (SANCTURA) 20 mg tablet Take 1 tablet by mouth twice daily. 60 tablet 1 levothyroxine (SYNTHROID) 200 mcg tablet Take one tablet daily. 30 tablet 1 tamsulosin (FLOMAX) 0.4 mg Take 2 capsules by mouth daily at bedtime. Magnesium Oxide 420 mg tab Take one [...] face mask for PAP therapy. He liked [facility] Kristine View full face mask during titration study. Dx ANABELL 1 Device 0 potassium chloride ER (K-DUR, KLOR-CON) 10 mEq tablet Take 1 tablet by mouth once daily. 30 tablet 1 CPAP Pressure change: Bilevel PAP 19/15 cmH2O. Please fax 30 day compliance download to [phone]. Dx: ANABELL, treatment (more content not included)...[facility]08-27-2025 History of Present illness Narrative* Sriram Valles MD - 12/02/2024 2:14 PM EDT Images from the original note were not included. Sriram Valles MD Interventional Cardiology [address] [place], [place] [id number] Chief Complaint Patient presents with: CARD Follow Up Annual: CAD HISTORY OF PRESENT ILLNESS: Mr. Nava is a 79-year-old male with a history of severe CAD, status post CABG, presenting for follow-up. The patient reports no current issues with his Heart and denies experiencing chest pain or dyspnea. He admits to being less active than recommended, attributing this to laziness. He uses a cane primarily for stability when navigating unfamiliar areas but does not require it at home. He underwent CABG with BOWLING to the LAD, and vein grafts to the diagonal and PDA. Mitral valve ring repair for severe MR A TTE performed in 05/2022 showed no significant abnormalities. He currently takes atorvastatin, aspirin, famotidine, Lasix, insulin, and losartan. Cardiac Risk Factors age (male over 45, female over 55), hyperlipidemia, obesity, diabetes, hypertension, family historyof CAD PAST MEDICAL HISTORY Diagnosis Date Acute, but ill-defined, cerebrovascular disease 1970s TIA Cancer ([facility]) 2007 thryoid Chronic rhinitis Congestive heart failure ([facility]) Coronary artery disease Dr. Hogue Depression Diabetes ([facility]) DVT (deep venous thrombosis) ([facility]) 2007 Esophageal reflux Generalized osteoarthrosis, unspecified site Hemorrhage of gastrointestinal tract, unspecified History of tobacco use Hypothyroidism Nonspecific (abnormal) findings on radiological and other examination of genitourinary organs 11/18/2007 He has R pelvic Kidney - congenital Obesity (BMI 30-39.9) Obstructive sleep apnea Bipap, seeing [facility] - [facility]ST MED[facility] H[facility]ORY [facility]. bypass and valve repair- DVT after Pure hypercholesterolemia Restless leg syndrome Rheum heart dis NEC/NOS CHILD Rheumatic fever S/P MVR (mitral valve repair) Sciatica Sensorineural hearing loss, unspecified Sensorineural hearing loss Stable angina Unspecified essential hypertension Unspecified tinnitus Tinnitus PAST [...] of Onset None Mother 98 Heart Father [facility] AGE 67 Diabetes Father Hypertension Brother Diabetes Brother other (malignant hyp) Paternal Aunt other (malignant hyperthermia) Other 1st cousin SOCIAL HISTORY[1] ALLERGIES Allergen Reactions Inhaled Anesthetics* Mevacor [Lovastatin] [...] pen injector Inject 1 mg weekly every Thrusday1 Each 5 levothyroxine (SYNTHROID) 25 mcg tablet Take 1 tablet by mouth once daily. Take on empty stomach. For thyroid. 30 tablet 2 clopidogrel (PLAVIX) 75 mg tablet Take 1 tablet by mouth once daily. 90 tablet 0 famotidine (PEPCID) 10 mg tablet Take 1 tablet by mouth twice daily. (Patient taking differently: Take 20 mg by mouth two times a day.) 180 tablet 0 trospium (SANCTURA) 20 mg tablet Take 1 tablet by mouth twice daily. 60 tablet 1 levothyroxine (SYNTHROID) 200 mcg tablet Take one tablet daily. 30 tablet 1 tamsulosin (FLOMAX) 0.4 mg Take 2 capsules by mouth daily at bedtime. Magnesium Oxide 420 mg tab Take one [...] Please fax 30 day compliance download to [phone]. Dx: ANABELL, treatment emergent CSA 1 Device 0 sertraline (ZOLOFT) 50 mg tablet Take 1 tablet by mouth once daily. 90 tablet 2 carbidopa-levodopa (SINEMET) 25-100 mg per tablet Take 1 tablet by mouth at bedtime as needed. ID #[id number] 90 tablet 3 aspirin(ECOTRIN LOW STRENGTH 81 MG TAB) Take one(1) tablet daily. 0 0 atorvastatin (LIPITOR) 80 mg tablet Take 0.5 tablets by mouth once daily. ID # [id number] 90 tablet 0 furosemide (LASIX) 20 mg tablet Take 1 tablet by mouth two times a day. 180 tablet 0 losartan (COZAAR) 100 mg tablet Take 1 tablet by mouth once daily. ID # [id number] 30 tablet 5 metoprolol tartrate, short acting, (LOPRESSOR) 50 mg tablet Take 2 tablets in AM and 1.5 tablets inthe evening 90 tablet 1 nitroglycerin sublingual (NITROSTAT) 0.4 mg SL tablet Dissolve 1 tablet under the tongue as needed.FOR CHEST PAIN. IF NO RELIEF CALL 911 30 tablet 1 No current facility-administered medications for this visit. [...] does not have insomnia. Physical Examination: Vitals:BP 133/74 Pulse 81 Ht 5' 6 (1.68m) Wt 230 lb (104.3kg) SpO2 95% BMI 37.14 kg/(m^2). BP w/Orthostatic Vitals Date and Time Orthostatic BP Orthostatic Pulse BP Pulse BP Position BP Site BP Cuff Size 12/02/24 1358 -- -- 133/74 81 Sitting Right Arm Large Adult Last 2 Encounter Wt Readings: Date: Wt: 12/02/2024 230 lb (104.3 kg) 10/28/2023 240 lb 9.6 oz (109.1 kg) Physical Exam Constitutional: General: He is not [...] or rales. Chest: Chest wall: No tenderness. Abdominal: General: Abdomen is flat. Musculoskeletal: General: Normal range of motion. Cervical back: Normal range of motion and neck supple. Skin: General: Skin is warm and dry. Neurological: Mental Status: He is alert and oriented to person, place, and time. Psychiatric: Mood and Affect: Mood normal. Pertinent Labs: CBC: Hemoglobin (g/dL) Date [...] risk factor for coronary heart disease LDL Cholesterol, Calculated Date Value Ref Range Status 11/09/2020 47 [...] results found for: TSHREFL Prior Cardiac Testing none Assessment and Plan: The patient is a 79-year-old male with a history of severe CAD, status post CABG and mitral valve repair . presenting for follow-up. ASSESSMENT/PLAN: 1. DORANTES (dyspnea on exertion) - ICD9: 786.09, ICD10: R06.09 Multi factorial likely weight related. - FUROSEMIDE 20 MG TABLET - ECHO - PERFLUTREN LIPID MICROSPHERES 1.1 MG/ML INJECTION IN NS 10 ML 2. Essential hypertension - ICD9: 401.9, ICD10: I10 - Controlled - Continue current medications - Recommend home blood pressure monitoring, to bring results to next visit - Encouraged sodium restriction, DASH or Mediterranean diet - Recommend regular aerobic exercise - METOPROLOL TARTRATE 50 MG TABLET - ECHO - PERFLUTREN LIPID MICROSPHERES 1.1 MG/ML INJECTION IN NS 10 ML 3. Presence of aortocoronary bypass graft - ICD9: V45.81, ICD10: Z95.1 With Mitral valve repair Need echocardiography 4. Hypertensive heart disease without heart failure - ICD9: 402.90, ICD10: I11.9 - Controlled - Continue current medications - Recommend home blood pressure monitoring, to bring results to next visit - Encouraged sodium restriction, DASH or Mediterranean diet - Recommend regular aerobic exercise We discussed your coronary artery disease and heart health: - Your blood pressure today was 133/74, and your heart rate was 81, which are both within a good range. - You reported no chest pain or shortness of breath, which is reassuring. - Please continue taking your current medications, including atorvastatin, aspirin, famotidine, Lasix, insulin, and losartan. Refills for your medications have been sent to your pharmacy in [place] through the [place] system. - I recommend that you increase your physical activity, such as walking or other light exercise, toimprove your overall health. We discussed your mitral valve repair: - Your last echocardiogram was in May 2022. To monitor your mitral valve repair, I will schedule a repeat echocardiogram. - The echocardiogram can be done at the [place] office, which is closest to your location. When [facility] calls, please request to have it scheduled there. Follow-up: - I will see you back in 1 year for your next follow-up appointment. - If you have any new symptoms, such as chest pain, shortness of breath, or other concerns, please contact our office immediately. Please stay active and take care. Sriram Valles MD Follow up planning: One year Electronically signed by Sriarm Valles MD on December 02, 2024, 2:14 PM The above note was partially created using a dictation recognition software. A reasonable attempt has been made to correct any errors. [1] Social History Tobacco Use Smoking status: Former Current packs/day: 0.00 Average packs/day: 0.5 packs/day for 10.0 years (5.0 ttl pk-yrs) Types: Cigarettes Start date: 09/27/1963 Quit date: 09/26/1973 Years since quittin.2 Smokeless tobacco: Former Types: Chew Quit date: 01/23/2007 Vaping Use Vaping status: Never Used Substance Use Topics Alcohol use: Yes Comment: Rarely Drug use: No documented in [facility] Department [address] [place] [address] Emergency Department Summary 09/30/24 MR#: [id number] Acct: [id number] Name: KIMBERLY NAVA Rep #:[id number] 79 From: Wally Molina MD PCP: [facility] Status:REG ER Location: ED ADDENDUM by Dr. Wally Molina MD on 09/30/24 at 0043 EKG was obtained and reveals atrial fibrillation rate of 134. QRS duration 70 ms. QT durations are 32 ms. There is decreased anterior force. At time of discharge monitor reveals patient have a heart rate of 85-95. This is without treatment. 09/30/24 0043 Cosigner Signature (if applicable): cc: [facility] ~* Signed HPI History of Present Illness Chief Complaint: Flank Pain [facility] Medical History Former tobacco use History of [...] CHF (congestive heart failure) Hyperlipidemia Home Medications ?Medication ?Instructions ?Recorded ?Last Taken ?Type aspirin 81 mg chewable tablet 81 mg PO DAILY heart hea lth 03/10/13 09/27/24 History atorvastatin 40 mg tablet 40 mg PO QHS cholesterol 06/1809/27/24 History levothyroxine 200 mcg tablet 200 mcg PO DAILY thyroid 03/10/13 09/27/24 History (Levoxyl) nitroglycerin 0.4 mg sublingual 0.4 mg sublingual Q5M PRN Chest 03/10/13 05/02/18 History tablet Pain sertraline 50 mg tablet 50 mg PO DAILY mental health 04/14/15 09/27/24 History famotidine 10 mg tablet 10 mg PO DAILY reflux 09/27/24 History semaglutide 0.25 mg or 0.5 mg (2 0.5 mg subcut TH diab etes 02/18/21 09/24/24 History mg/1.5 mL) subcutaneous pen injector (Ozempic) carbidopa ER 25 mg-levodopa 100 mg 1 tab PO QHS tremor s 04/14/24 09/27/24 History tablet,extended release multivitamin with iron 1 tab PO DAILY multivitamin 04/14/24 09/27/24 History vit C 250 mg-vit E 90 mg-zinc 40 1 tab PO BID vitamin 04/14/24 09/27/24 History mg-copper 1 [id number] capsule (PreserVision AREDS-2) clopidogrel 75 mg tablet 75 mg PO DAILY antiplatelet 09/23/24 09/27/24 History insulin glargine 100 unit/mL (3 30 unit subcut BID heydi betes 09/23/24 09/27/24 History mL) subcutaneous pen (Lantus Solostar U-100 Insulin) losartan 25 mg tablet 12.5 mg PO DAILY htn 5 09/27/24 History potassium chloride 10 mEq 10 meq PO DAILY supplement 0 09/23/24 09/27/24 History tablet,extended release (Klor-Con) tamsulosin 0.4 mg capsule (Flomax) 0.8 mg PO QHS bladd er 09/23/24 09/27/24 History trospium 20 mg tablet 20 mg PO BID antispasmodic 0 09/23/24 09/27/24 History cholecalciferol (vitamin D3) 50 2,000 unit PO DAILY 09/27/24 History mcg (2,000 unit) chewable tablet empagliflozin 25 mg tablet 25 mg PO DAILY 09/24/24 History furosemide 20 mg tablet 20 mg PO Q12H diuretic 09/2409/27/24 History magnesium oxide 420 mg tablet 420 mg PO QHS supplement 09/24/24 09/27/24 History metoprolol tartrate 25 mg tablet 50 mg PO Q12H htn 09/27/24 History trazodone 50 mg tablet 25 mg PO QHS PRN sleep 09/2409/27/24 History ciprofloxacin HCl 500 mg tablet 500 mg PO BID #14 tabs 09/25/24 09/27/24 Rx oxycodone 5 mg tablet 5 mg PO Q6H PRN pain 7 days #20 09/25/24 09/27/24 Rx tabs cephalexin 500 mg capsule 500 mg PO Q8 #15 CAPSULES Unknown Rx Allergy/AdvReac Type Severity Reaction Status Date / Time Anesthetics - Amide Type - Allergy Other Verified 09/29/24 20:41 [facility] - [place] Type- Allergy Other Verified 09/29/24 20:41 Parabens albuterol AdvReac Mild thrush Verified 09/29/24 20:41 Family History Father CAD (coronary artery disease) Myocardial infarction Diabetes Heart disease Hypertension Brother Hypertension Diabetes Mother No problems noted. Surgical History History of ureter stent S/P thyroidectomy S/P arthroscopic knee surgery S/P hemorrhoidectomy Hx of elbow surgery S/P CABG x 4 S/P coronary artery stent placement Hx of mitral valve repair Social History household members: spouse Smoking Status: Former smoker quit date: 09/26/73 pack-years: 5 how long ago did patient quit smoking: Additional chew tobacco use history, quit 01/15/2007. alcohol intake: never substance use type: does not use EXAM Physical Exam Const Vital Signs: 09/29/24 20:42 09/29/24 20:44 09/29/24 21:44 Temperature 97 F L 98.2 F 98.2 F Temperature Source Temporal Oral Oral Pulse Rate 89 89 64 Respiratory Rate 22 H 18 18 Blood Pressure 111/76 157/98 H 158/98 H Blood Pressure Mean 87 117 118 Pulse Ox 96 96 96 Oxygen Delivery Method Room Air Room Air Room Air 09/29/24 22:00 09/29/24 23:00 Temperature 98.2 F 98.2 F Temperature Source Oral Oral Pulse Rate 64 88 Respiratory Rate 18 18 Blood Pressure 158/98 H 149/99 H Blood Pressure Mean 118 115 Pulse Ox 96 95 Oxygen Delivery Method Room Air Room Air [facility] MDM Lab Data Attestation: I reviewed the patient's lab results. Lab results narrative: CBC is unremarkable. There is no white count or shift. Electrolyte panel is remarkable for BUN/creatinine of 28 and 2.27. Urinalysis is remarkable for cloudy harshad appearance and macro was positive for protein, glucose, occult blood, nitrites and leukoesterase. Micro reveals greater than 100 RBCs, 10-25 WBCs with 2+ bacteria. Since patient has leukoesterase, nitrites, pyuria with 2+ bacteria which is new culture was sent and he received 1 g of Rocephin. Labs: Laboratory Results - last 24 hr 09/29/24 09/29/24 09/29/24 20:54 22:46 22:51 WBC 8.8 RBC 4.74 Hgb 14.9 Hct 44.3 MCV 93.5 MCH 31.4 MCHC 33.6 RDW Std Deviation 46.5 H RDW Coeff of Luther 13.5 Plt Count 220 MPV 11.3 Immature Gran % (Auto) 0.300 Neut % (Auto) 64.4 Lymph % (Auto) 18.7 L [place] % (Auto) 10.7 H Eos % (Auto) 5.2 H Baso % (Auto) 0.7 Absolute Neuts (auto) 5.7 Absolute Lymphs (auto) 1.64 Nucleated RBC % 0 Sodium 139 Potassium 4.9 Chloride 104 Carbon Dioxide 19.6 L Anion Gap 15 BUN 28 H Creatinine 2.27 H Estim Creat Clear Calc 29.35 L Est GFR (MDRD) Non-Af 29 L BUN/Creatinine Ratio 12.3 Glucose 114 H Calcium 9.2 Urine Color Harshad Urine Clarity Cloudy Urine pH 6.0 Ur Specific Gamaliel 1.020 Urine Protein 100 H Urine Glucose (UA) 1000 H Urine Ketones Negative Urine Occult Blood 250 H Urine Nitrite Positive H Urine Bilirubin Negative Urine Urobilinogen Normal Ur Leukocyte Esterase 100 H Urine RBC > 100 SEEN Urine WBC 10-25 SEEN Ur Squamous Epith Cells 5-10 SEEN Ur Transition Epith Cell 0-5 SEEN Urine Bacteria 2+ Urine Mucus 0 SEEN POC Glucose 102 Radiography Diagnostic Testing: Clinical Impression(s) from Imaging Studies Abdomen/Pelvis CT 09/29/24 21:22 IMPRESSION: 1. No significant interval change in the moderate left hydroureteronephrosis, with stent in unchanged position. Hyperdense contents within the left renal collecting system, ureter, and urinary bladder may represent delayedexcretion of the contrast from the CT performed yesterday. Blood products could also appear similar. 2. Punctate focus of air within the urinary bladder could be the result of recent instrumentation, though emphysematous cystitis could appear similar. Reading Location: [id number] Treatment and Re-Evaluation :: Patient initially was treated with morphine. Recurrence of his pain. He is given additional dose ofmorphine. CT essentially is unchanged from prior film. Will discuss [facility] Dr. Conteh. He is scheduled to see the patient on . He removed his stent at thattime. He will follow-up on the cultures. Requested cephalexin. Patient has oxycodone at home. He isinstructed take the oxycodoneevery 4-6 hours for the pain. Discharge Plan Triage Chief Complaint: Flank Pain ED Provider: Wally Molina Dx/Rx/DC Orders Clinical Impression: Complicated urinary tract infection, Chronic kidney disease (CKD), Left flank pain, Hematuria, Status post laser lithotripsy of ureteral calculus, Hydronephrosis of left kidney Instructions: ED Bladder Infection, Male (Adult) Prescriptions: New cephalexin 500 mg capsule 500 mg PO Q8 Qty: 15 0RF No Action atorvastatin 40 MG tablet 40 mg PO QHS Patient Comments: cholesterol nitroglycerin 0.4 MG tablet 0.4 mg sublingual Q5M PRN (Reason: Chest Pain) Patient Comments: chest pain aspirin 81 MG tablet,chewable 81 mg PO DAILY Patient Comments: heart health levothyroxine [Levoxyl] 200 MCG tablet 200 mcg PO DAILY Patient Comments: thyroid sertraline 50 MG tablet 50 mg PO DAILY Ozempic 0.25 mg or 0.5 mg(2 mg/1.5 mL) Pen Injector 0.5 mg SUBCUT TH famotidine 10 mg Tablet 10 mg PO DAILY carbidopa-levodopa 25-100 mg tablet extended release 1 tab PO QHS multivitamin with iron Tablet 1 tab PO DAILY PreserVision AREDS-2 250-90-40-1 mg capsule 1 tab PO BID tamsulosin [Flomax] 0.4 mg capsule 0.8 mg PO QHS losartan 25 mg tablet 12.5 mg PO DAILY trospium 20 mg tablet 20 mg PO BID Rx Instructions: administer on an empty stomach clopidogrel 75 mg tablet 75 mg PO DAILY potassium chloride [Klor-Con 10] 10 mEq tablet extended release 10 meq PO DAILY insulin glargine [Lantus Solostar U-100 Insulin] 100 unit/mL (3 mL) insulin pen 30 unit subcut BID magnesium oxide 420 mg tablet 420 mg PO QHS empagliflozin 25 mg tablet 25 mg PO DAILY cholecalciferol (vitamin D3) 50 mcg (2,000 unit) tablet,chewable 2,000 unit PO DAILY trazodone 50 mg tablet 25 mg PO QHS PRN (Reason: sleep) furosemide 20 mg tablet 20 mg PO Q12H metoprolol tartrate 25 mg Tablet 50 mg PO Q12H oxycodone 5 mg tablet 5 mg PO Q6H PRN (Reason: pain) 7 Days Qty: 20 0RF ciprofloxacin HCl 500 mg tablet 500 mg PO BID Qty: 14 0RF Primary Care Provider: [facility] Referrals: Cory Conteh MD [Med Staff - Active Staff] - Keep Rusty appointment [place], [place] [Primary Care Provider] - Activity Restrictions/Additional Instructions: 1. If you develop a temperature greater than 100 shaking chills, severe pain not controlled by yourpain medication return to the emergency department 2. Take the antibiotic 3 times a day until gone 3. You may take one of your oxycodone tablets every 4-6 hours for pain. Recommend taking [id number] for the first day. Print Language: Niuean Disposition Disposition: Home, Self Care What to do if you have Problems For any increased pain, shortness of breath, bleeding, nausea or vomiting, chestpain, or any unexpected problems, contact your Primary Care Provider. Call [facility] ([phone]) or report tothe closest Emergency Room. Call 911 if necessary. 09/30/24 0033 Cosigner Signature (if applicable): CC: [facility] ~ Signed [facility]06-24-2025 Radiology Diagnostic study note [facility] Imaging Services [address] [place] [address] Abdomen/Pelvis without Cont MR#: [id number] Acct: [id number] Name: KIMBERLY NAVA Rep #: [id number] : 1945 M 79 From: Kay Titus MD PCP: [facility] Status: REG ER Study:Abdomen/Pelvis without Cont Date of Exa m: 09/29/24 Exam# [id number] Ordering Dr: Jagdeep Molina MD PROCEDURE: ABDOMEN/PELVIS WITHOUT CONT 09/29/2024 REASON FOR EXAM: LEFT LOWER QUADRANT PAIN, GROSS HEMATURIA, HISTORY TECHNIQUE: ABDOMEN/PELVIS WITHOUT CONT Noncontrast technique limits evaluation of the abdominal and pelvic viscera. Coronal and Sagittal reconstruction series were provided. One or more dose reduction techniques were used (e.g., Automated exposure control, adjustment of the mA and/or kV according to patient size, use of iterative reconstruction technique). COMPARISON: CT abdomen and pelvis on 09/28/2024 FINDINGS: Lung bases: Bibasilar atelectasis. Right pleural calcifications suggestive of prior asbestos exposure. Multivessel coronary calcifications. Liver: Subcentimeter hypodensity at the right hepatic dome is too small to characterize. Gallbladder: Hydropic with hyperdense layering sludge. Spleen: Normal size. Pancreas: Normal size. No surrounding inflammation. Adrenals: Unremarkable Kidneys: Left nephroureteral stent with pigtails in the left ureteropelvic junction and urinary bladder. There is moderate persistent left hydroureteronephrosis, similar to the CT on 09/28/2024. There are hyperdense contents throughout the left renal collecting system, left ureter, and urinary bladder. A tiny nonobstructing stone at the lower pole of the left kidney is unchanged. Right kidney is located lower in the abdomen and with unchanged mildhydronephrosis. Bladder: Punctate focus of air present within the urinary bladder. Mild diffusewall thickening. Reproductive Organs: Prostatomegaly with coarse calcifications. Bowel: No obstruction or inflammation. Lymph nodes: No significant lymphadenopathy. Vasculature: Moderate diffuse atherosclerotic calcifications are noted. Bones: Degenerative changes of the spine. Soft tissues: Fat containing left inguinal hernia. CT/Abdomen/Pelvis without Cont IMPRESSION: 1. No significant interval change in the moderate left hydroureteronephrosis, with stent in unchanged position. Hyperdense contents within the left renal collecting system, ureter, and urinary bladder may represent delayedexcretion of the contrast from the CT performed yesterday. Blood products could also appear similar. 2. Punctate focus of air within the urinary bladder could be the result of recent instrumentation, though emphysematous cystitis could appear similar. Reading Location: [id number] CC: Dr. Wally Molina MD; [facility] ~ Psychopaedic Nurse: Signed [facility]06-24-2025 Hospital Discharge instructions Additional Instructions 1. If you develop a temperature greater than 100 shaking chills, severe pain not controlled by your pain medication return to the emergency department 2. Take the antibiotic 3 times a day until gone 3. You may take one of your oxycodone tablets every 4-6 hours for pain. Recommend taking [id number] for the first day.[facility] Work Phone: [phone] 648-839106-23-2025 Discharge summary [facility] Medical Records Department [address] [place] [address] Emergency Department Summary 09/28/24 MR#: [id number] Acct: [id number] Name: KIMBERLY NAVA Rep #:[id number] : 1945 79 From: Darwin Kruger DO PCP: [facility] Status:REG ER Location: ED HPI History of Present Illness Chief Complaint: Flank Pain Narrative Narrative: Patient is a 79-year-old male with past medical history of DVT, tubular adenoma of the colon, ANABELL, kidney stones with recent lithotripsy, diabetes, CHF, hypothyroidism who presents to the emergency department chief complaint of abdominal pain. Patient states that last week he was diagnosed with a kidney stone and had lithotripsy performed. He states that afterwards he was still having discomfort however he states that nothing seem to be worsening. He states that yesterday afternoon he actually started feeling better and then by the evening again he started feeling worse with painful urination. He states that he has not any blood thinning medications currently. He currently rates his pain a 5 out of 10 in the left lower portion of his abdomen. Denies any recent contacts denies dark tarry stools blood in the stool [facility] Medical History Former tobacco use History of [...] CHF (congestive heart failure) Hyperlipidemia Home Medications ?Medication ?Instructions ?Recorded ?Last Taken ?Type aspirin 81 mg chewable tablet 81 mg PO DAILY heart hea lth 03/10/13 09/27/24 History atorvastatin 40 mg tablet 40 mg PO QHS cholesterol 06/1809/27/24 History levothyroxine 200 mcg tablet 200 mcg PO DAILY thyroid 03/10/13 09/27/24 History (Levoxyl) nitroglycerin 0.4 mg sublingual 0.4 mg sublingual Q5M PRN Chest 03/10/13 05/02/18 History tablet Pain sertraline 50 mg tablet 50 mg PO DAILY mental health 04/14/15 09/27/24 History famotidine 10 mg tablet 10 mg PO DAILY reflux 09/27/24 History semaglutide 0.25 mg or 0.5 mg (2 0.5 mg subcut TH diab etes 02/18/21 09/24/24 History mg/1.5 mL) subcutaneous pen injector (Ozempic) carbidopa ER 25 mg-levodopa 100 mg 1 tab PO QHS tremor s 04/14/24 09/27/24 History tablet,extended release multivitamin with iron 1 tab PO DAILY multivitamin 04/14/24 09/27/24 History vit C 250 mg-vit E 90 mg-zinc 40 1 tab PO BID vitamin 04/14/24 09/27/24 History mg-copper 1 to-qlslpe-swtast capsule (PreserVision AREDS-2) clopidogrel 75 mg tablet 75 mg PO DAILY antiplatelet 09/23/24 09/27/24 History insulin glargine 100 unit/mL (3 30 unit subcut BID heydi betes 09/23/24 09/27/24 History mL) subcutaneous pen (Lantus Solostar U-100 Insulin) losartan 25 mg tablet 12.5 mg PO DAILY htn 5 09/27/24 History potassium chloride 10 mEq 10 meq PO DAILY supplement 0 09/23/24 09/27/24 History tablet,extended release (Klor-Con) tamsulosin 0.4 mg capsule (Flomax) 0.8 mg PO QHS bladd er 09/23/24 09/27/24 History trospium 20 mg tablet 20 mg PO BID antispasmodic 0 09/23/24 09/27/24 History cholecalciferol (vitamin D3) 50 2,000 unit PO DAILY 09/27/24 History mcg (2,000 unit) chewable tablet empagliflozin 25 mg tablet 25 mg PO DAILY 09/24/24 History furosemide 20 mg tablet 20 mg PO Q12H diuretic 09/2409/27/24 History magnesium oxide 420 mg tablet 420 mg PO QHS supplement 09/24/24 09/27/24 History metoprolol tartrate 25 mg tablet 50 mg PO Q12H htn 09/27/24 History trazodone 50 mg tablet 25 mg PO QHS PRN sleep 09/2409/27/24 History ciprofloxacin HCl 500 mg tablet 500 mg PO BID #14 tabs 09/25/24 09/27/24 Rx oxycodone 5 mg tablet 5 mg PO Q6H PRN pain 7 days #20 09/25/24 09/27/24 Rx tabs Allergy/AdvReac Type Severity Reaction Status Date / Time Anesthetics - Amide Type - Allergy Other Verified 09/28/24 07:48 [facility] - [place] Type- Allergy Other Verified 09/28/24 07:48 Parabens albuterol AdvReac Mild thrush Verified 09/28/24 07:48 Family History Father CAD (coronary artery disease) Myocardial infarction Diabetes Heart disease Hypertension Brother Hypertension Diabetes Mother No problems noted. Surgical History History of ureter stent S/P thyroidectomy S/P arthroscopic knee surgery S/P hemorrhoidectomy Hx of elbow surgery S/P CABG x 4 S/P coronary artery stent placement Hx of mitral valve repair Social History household members: spouse Smoking Status: Former smoker quit date: 09/26/73 pack-years: 5 how long ago did patient quit smoking: Additional chew tobacco use history, quit 01/15/2007. alcohol intake: never substance use type: does not use ROS ROS ED ROS Narrative Constitutional: Denies fevers, chills, headaches Eyes: Denies change in vision double vision blurry vision Cardiovascular: Denies chest pain Respiratory: Denies shortness of breath Abdomen: Complains of left-sided abdominal pain as noted above denies nausea vomiting diarrhea : States that he has had persistent hematuria since the lithotripsy this is unchanged as well as his painful urination is unchanged states that he has a stent in place as well Neurological: Denies numbness, weeks, tingling Musculoskeletal: Complains of left-sided back pain Skin: Denies rashes or lesions EXAM Physical Exam Narrative Exam Narrative: General: Patient lying in bed rest comfortably did not appear to be in acute distress Head: Atraumatic, normocephalic Eyes: PERRL bilaterally, EOMI bilateral, no conjunctival injection noted Neck: Soft, supple, trachea midline Cardiovascular: Regular rate and rhythm Respiratory: Clear to auscultation bilaterally Abdomen: Soft, nondistended, mild tenderness palpation left lower quadrant no rebound or guarding on exam Musculoskeletal: Mild CVA tenderness noted on the left side, no tenderness palpation midline of thethoracic lumbar spine Extremities: +5/5 strength noted in the bilateral upper and lower extremities, radial pulses +2/4 in the bilateral extremities, no pedal edema on exam Neurological: Patient following commands knew that he was at [facility] year is 2024 Skin: Warm, dry contact no rashes or lesions noted Const Vital Signs: 09/28/24 07:45 09/28/24 09:43 Temperature 98.0 F Temperature Source Oral Pulse Rate 87 Respiratory Rate 16 Blood Pressure 159/97 H 128/84 H Blood Pressure Mean 117 98 Pulse Ox 98 Oxygen Delivery Method Room Air MDM MDM MDM Narrative Medical decision making narrative: Patient is a 79-year-old male who presents to the emergency department chief complaint of left lower abdominal pain. On the differential diagnosis includes but not limited to diverticulitis, UTI, pyelonephritis, urolithiasis, emphysematous cystitis. Once workup is obtained and reviewed he will be re evaluated Patient's CBC was reviewed showed no evidence leukocytosis white blood count normal at 6.9, hemoglobin is 15.3, platelet count was noted to be normal at 164. Patient sodium normal 141, potassium normal 3.8, creatinine was 2 which appearsto be around his baseline, AST and ALT were 28 and 14 respectively. Patient lipase normal at 52, urinalysis reviewed showed 250 blood 25 leukocyte esterase negative nitrites 0-5 white cells with no bacteria seen does not appear to have a urinary tract infection.Patient CT abdomen pelvis with IV contrast reviewed showed status post left double-J stent catheterplacement. Residual left hydro and hydroureter previously seen left distal ureteral calculus is notseen at this point time. Sigmoid diverticulosis. Called and spoke with his urologist Dr. Conteh who does believe that this pain is coming from the stent and he states that he has an appointment on tohave the stent removed he is recommending following up with him on for this. I discussed this plan with the patient and significant other at bedside they areagreeable this planthey would like to go home this point in time all question concerns answered he was discharged homein stable condition. Lab Data Labs: Laboratory Results - last 24 hr 09/28/24 09/28/24 07:49 09:04 WBC 6.9 RBC 4.91 Hgb 15.3 Hct 45.8 MCV 93.3 MCH 31.2 MCHC 33.4 RDW Std Deviation 45.4 H RDW Coeff of Luther 13.3 Plt Count 164 MPV 10.5 Immature Gran % (Auto) 0.400 Neut % (Auto) 62.2 Lymph % (Auto) 21.5 Eaton % (Auto) 10.4 H Eos % (Auto) 5.1 H Baso % (Auto) 0.4 Absolute Neuts (auto) 4.3 Absolute Lymphs (auto) 1.49 Nucleated RBC % 0 Sodium 141 Potassium 3.8 Chloride 102 Carbon Dioxide 22.7 Anion Gap 16 H BUN 26 H Creatinine 2.00 H Estim Creat Clear Calc 33.38 L Est GFR (MDRD) Non-Af 33 L BUN/Creatinine Ratio 12.9 Glucose 149 H Calcium 9.2 Total Bilirubin 1.15 AST 28 ALT 14 Alkaline Phosphatase 120 Total Protein 6.7 Albumin 3.9 Globulin 2.8 Albumin/Globulin Ratio 1.4 Lipase 52 Urine Color Red Urine Clarity Sl. Cloudy Urine pH 7.0 Ur Specific Gamaliel 1.010 Urine Protein 100 H Urine Glucose (UA) 1000 H Urine Ketones Negative Urine Occult Blood 250 H Urine Nitrite Negative Urine Bilirubin Negative Urine Urobilinogen Normal Ur Leukocyte Esterase 25 H Urine RBC 25-50 SEEN Urine WBC 0-5 SEEN Ur Squamous Epith Cells 0 SEEN Urine Bacteria 0 SEEN Urine Mucus 0 SEEN Radiography Diagnostic Testing: Clinical Impression(s) from Imaging Studies Abdomen/Pelvis CT 09/28/24 08:14 IMPRESSION: Status post left double J stent catheter placement. Residual left hydronephrosis and hydroureter. The previously seen the distal left ureteral calculusis not seen at this time. Sigmoid diverticulosis. Reading Location: [facility] Discharge Plan Triage Chief Complaint: Flank Pain ED Provider: Darwin Kruger Dx/Rx/DC Orders Clinical Impression: Left flank pain, Abdominal pain, Hematuria, Status post laser lithotripsy of ureteral calculus Prescriptions: No Action atorvastatin 40 MG tablet 40 mg PO QHS Patient Comments: cholesterol nitroglycerin 0.4 MG tablet 0.4 mg sublingual Q5M PRN (Reason: Chest Pain) Patient Comments: chest pain aspirin 81 MG tablet,chewable 81 mg PO DAILY Patient Comments: heart health levothyroxine [Levoxyl] 200 MCG tablet 200 mcg PO DAILY Patient Comments: thyroid sertraline 50 MG tablet 50 mg PO DAILY Ozempic 0.25 mg or 0.5 mg(2 mg/1.5 mL) Pen Injector 0.5 mg SUBCUT TH famotidine 10 mg Tablet 10 mg PO DAILY carbidopa-levodopa 25-100 mg tablet extended release 1 tab PO QHS multivitamin with iron Tablet 1 tab PO DAILY PreserVision AREDS-2 250-90-40-1 mg capsule 1 tab PO BID tamsulosin [Flomax] 0.4 mg capsule 0.8 mg PO QHS losartan 25 mg tablet 12.5 mg PO DAILY trospium 20 mg tablet 20 mg PO BID Rx Instructions: administer on an empty stomach clopidogrel 75 mg tablet 75 mg PO DAILY potassium chloride [Klor-Con 10] 10 mEq tablet extended release 10 meq PO DAILY insulin glargine [Lantus Solostar U-100 Insulin] 100 unit/mL (3 mL) insulin pen 30 unit subcut BID magnesium oxide 420 mg tablet 420 mg PO QHS empagliflozin 25 mg tablet 25 mg PO DAILY cholecalciferol (vitamin D3) 50 mcg (2,000 unit) tablet,chewable 2,000 unit PO DAILY trazodone 50 mg tablet 25 mg PO QHS PRN (Reason: sleep) furosemide 20 mg tablet 20 mg PO Q12H metoprolol tartrate 25 mg Tablet 50 mg PO Q12H oxycodone 5 mg tablet 5 mg PO Q6H PRN (Reason: pain) 7 Days Qty: 20 0RF ciprofloxacin HCl 500 mg tablet 500 mg PO BID Qty: 14 0RF Primary Care Provider[facility] Referrals: Kobi Adair MD [Non-Staff] - Activity Restrictions/Additional Instructions: Follow-up with Dr. Conteh at your next scheduled appointment to have your stent removed. I did discuss with him and he believes that your pain is coming from your stent and likely should get better after this is removed. Return with worsening symptoms or any other concerns. Your CT scan that was done here todaydid not show any acute findings. Your blood work here today did not show any acute abnormalities either. Print Language: Niuean Disposition Disposition: Home, Self Care What to do if you have Problems For any increased pain, shortness of breath, bleeding, nausea or vomiting, chestpain, or any unexpected problems, contact your Primary Care Provider. Call [facility] ([phone]) or report tothe closest Emergency Room. Call 911 if necessary. 09/28/24 1116 Cosigner Signature (if applicable): [facility]: [facility] ~ Signed [facility]06-23-2025 Radiology Diagnostic study note [facility] Imaging Services [address] [place], [place] [id number] Abdomen/Pelvis W IV Cont ONLY MR#: [id number] Acct: [id number] Name: KIMBERLY NAVA Rep #: [id number] : 1945 M 79 From: Jaime Taveras MD PCP: [place] [facility] Status: REG ER Study:Abdomen/Pelvis W IV Cont ONLY Date of E xam: 09/28/24 Exam# [id number] Ordering Dr: Issac Kruger DO PROCEDURE: ABDOMEN/PELVIS W IV CONT ONLY 09/28/2024 REASON FOR EXAM: LLQ PAIN, RECENT LITHOTRIPSY TECHNIQUE: ABDOMEN/PELVIS W IV CONT ONLY. Coronal and Sagittal reconstruction series were provided. CONTRAST: Isovue-300 VOLUME: 100 mL One or more dose reduction techniques were used (e.g., Automated exposure control, adjustment of the mA and/or kV according to patient size, use of iterative reconstruction technique. RADIATION DOSE SUMMARY: CTDlvol: 20.7 mGy DLP: 1156.23 mGycm COMPARISON: Prior study dated September 23, 2024. FINDINGS: Lung bases: Mild dependent atelectasis. Calcified granuloma in the right lower lobe. Coronary artery calcification. Liver: Diffuse fatty infiltration. 1 cm hypodensity in the dome of the right lobe of the liver suggestive of a small cyst. This is unchanged. Gallbladder: Mildly distended gallbladder. Spleen: Normal size. Pancreas: Normal size without evidence of mass surrounding inflammation or ductal dilation. Adrenals: Unremarkable Kidneys: Moderate degree of left hydronephrosis and hydroureter. Nonobstructivecalculus is seen in the lower pole calyx of the left kidney. A left-sided double-J stent catheter is seen with the proximal tipin the left renal pelvis and distal tip in the urinary bladder. There is malrotation of the right kidney. Mild degree of right hydronephrosis. Bladder: Mild degree of bladder wall thickening. The prostate gland is enlarged. It measures 4.6 cmby 6.2 cm. Central prostatic calcifications present. Bowel: Colonic diverticulosis without diverticulitis. Appendix: Unremarkable Lymph nodes: Unremarkable Vasculature: Mild diffuse atherosclerotic calcifications are noted. Peritoneum / Retroperitoneum: Unremarkable Bones: Degenerative changes of the spine. CT/Abdomen/Pelvis W IV Cont ONLY IMPRESSION: Status post left double J stent catheter placement. Residual left hydronephrosis and hydroureter. The previously seen the distal left ureteral calculusis not seen at this time. Sigmoid diverticulosis. Reading Location: [id number] CC: Dr. Darwin Kruger, DO; [facility] ~ Psychopaedic Nurse: Signed [facility]06-20-2025 Consult note [facility] Medical Records Department [address] [place] [address] Anesthesia Postop Eval II 09/25/24 1547 MR#: [id number] Acct: [id number] Name: KIMBERLY NAVA Rep #:[id number] : 1945 79 From: Allison Evangelista CRNA PCP: Dr. Kobi Adair MD Status :ADM CHINTAN Y Race: C [place] [facility] [id number] -[id number] Anesthesia Postop Eval I Sum Postop Eval Completion status Anesthesia document: Postop Eval 1 completed: Yes Anesthesia Postop Eval I Summary Anesthesia Postop Eval I Summary: Anesthesia Postop Eval I: Assessment Summary Airway patent Yes 09/25/24 12:26 [email or web address] Spontaneous unlabored Yes 09/25/24 12:26 [email or web address] respirations Mental status Awake,Calm 09/25/24 12:26 [email or web address] nausea No 09/25/24 12:26 [email or web address] Vomiting No 09/25/24 12:26 [email or web address] Anesthesia Postop Eval I: Fluid Summary Crystalloid volume administer 900 09/25/24 12:26 SIGNAL [email or web address].MDOT (ml) Colloids volume administered ( ml) Blood Product volume administered (ml) Total IV fluid infused 900 09/25/24 12:26 [email or web address] Anesthesia Postop Eval I: Summary Notes Anesthesia Complication No 09/25/24 12:26 [email or web address] Anesthesia Complication Comment: Post-operative progress note Anesthesia: Postop Eval II Evaluation Mental status: Awake Pain Level: 2 nausea: No Vomiting: No 09/25/24 1547 a SIGNAL FITTER> Date _ Allison Evangelista SIGNAL FITTER Cosigner Signature: Date CC: ~ Signed [facility]06-20-2025 Progress note [facility] Medical Records Department [address] [place] [address] Progress Note - Urology 09/25/24 1037 MR#: [id number] Acct: [id number] Name: KIMBERLY NAVA Rep #:[id number] : 1945 79 From: Cory Conteh MD PCP: Dr. Kobi Adair MD Status :ADM CHINTAN Location: [place] [id number] Subjective Subjective Plan to proceed with laser lithotripsy of obstructing stone in the left side andstent placement. Objective Data Objective Data Vital Signs: Vital Signs Temp Pulse Resp BP Pulse Ox O2 Del Method O2 Flow Rate 98.3 F 88 16 141/86 H 96 Room Air 2 09/25/24 09:32 09/25/24 09:32 09/25/24 09:32 09/25/24 09:32 09/25/24 09:32 09/25/24 09:45 09/25/24 09:32 Oxygen Flow Rate (L/min) 2 Oxygen Delivery Method Room Air Weight: 100.2 kg Body Mass Index (BMI) 35.6 Intake & Output: Intake and Output for Last 24 Hours 09/23/24 09/24/24 09/25/24 23:59 23:59 23:59 Intake Total 500 / 500 1685. 976. / 976. Output Total 0 / 0 Balance 500 / 500 976. / 976.67 Lab / Micro Data 09/25/24 05:25 09/25/24 05:25 Labs: Laboratory Results - last 24 hr 09/25/24 05:25: WBC 6.1, RBC 4.43 L, Hgb 14.0, Hct 41.8, MCV 94.4 H, MCH 31.6, MCHC 33.5, RDW Std Deviation 47.7 H, RDW Coeff of Luther 13.5, Plt Count 129 L, MPV10.7, Immature Gran % (Auto) 0.200, Neut% (Auto) 53.7, Lymph % (Auto) 29.4, Eaton % (Auto) 11.6 H, Eos % (Auto) 4.4, Baso % (Auto) 0.7, Absolute Neuts (auto) 3.3, Absolute Lymphs (auto) 1.80, Nucleated RBC % 0, Sodium 139, Potassium 3.8, Chloride 104, Carbon Dioxide 22.7, Anion Gap 13, BUN 32 H, Creatinine 2.34 H, Estim Creat Clear Calc 28.37 L, Est GFR (MDRD) Non-Af 28 L, BUN/Creatinine Ratio 13.6, Glucose 122 H, Hemoglobin A1c 7.0 H, Calcium 8.6 09/25/24 1037 Cosigner Signature (if applicable): CC: ~ Signed [facility]06-20-2025 Consult note Author Fran Gates [facility] Note Date/Time September 25, 2024 12:2 6pm [facility] Medical Records Department [address] [place] [address] Anesthesia Postop Eval I 09/25/243 MR#: [id number] Acct: [id number] Name: KIMBERLY NAVA Rep #:[id number] : 1945 79 From: Fran Evangelista RNA PCP: Dr. Kobi Adair MD Status :ADM CHINTAN Y Race: C Location: [place] [address] 1 Anesthesia: Postop Eval I Current Vital Signs Temperature: 97.4 F Pulse Rate: 84 Blood Pressure: 87/60 Respiratory Rate: 16 Pulse Ox: 93 Oxygen Delivery Method: Room Air Assessment Airway patent: Yes Spontaneous unlabored respirations: Yes Mental status: Awake and Calm nausea: No Vomiting: No Anesthesia Complication: No Fluid Hydration Crystalloid volume administer (ml): 900 Total IV fluid infused: 900 Progress Note Anesthesia document: Postop Eval 1 completed: Yes 09/25/24 1226 <Electronically signed by Fran Gates SIGNAL FITTER> Date _ Fran Gates SIGNAL FITTER Cosigner Signature: Date CC: ~ Signed [facility] Work Phone: 1(628) 193-243006-20-2025 Progress note Author Cory Conteh [facility] Note Date/Time September 25, 2024 4:15 pm [facility] Medical Records Department [address] [place] [address] Progress Note - Urology 09/25/24 [facility] MR#: [id number] Acct: [id number] Name: KIMBERLY NAVA Rep #:[id number] : 1945 79 From: Cory Conteh MD PCP: Dr. Kobi Adair MD Status :ADM CHINTAN Location: [place] [address] Subjective Subjective Plan to proceed with laser lithotripsy of obstructing stone in the left side andstent placement. Objective Data Objective Data Vital Signs: Vital Signs Temp Pulse Resp BP Pulse Ox O2 Del Method O2 Flow Rate 98.3 F 88 16 141/86 H 96 Room Air 2 09/25/24 09:32 09/25/24 09:32 09/25/24 09:32 09/25/24 09:32 09/25/24 09:32 09/25/24 09:45 09/25/24 09:32 Oxygen Flow Rate (L/min) 2 Oxygen Delivery Method Room Air Weight: 100.2 kg Body Mass Index (BMI) 35.6 Intake & Output: Intake and Output for Last 24 Hours 09/23/24 09/24/24 09/25/24 23:59 23:59 23:59 Intake Total 500 / 500 1686. / 976.67 / 976.67 Output Total 0 / 0 Balance 500 / 500 1686. / 976.67 / 976.67 Lab / Micro Data 09/25/24 05:25 06/20/25 05:25 Labs: Laboratory Results - last 24 hr 09/25/24 05:25: WBC 6.1, RBC 4.43 L, Hgb 14.0, Hct 41.8, MCV 94.4 H, MCH 31.6, MCHC 33.5, RDW Std Deviation 47.7 H, RDW Coeff of Luther 13.5, Plt Count 129 L, MPV10.7, Immature Gran % (Auto) 0.200, Neut % (Auto) 53.7, Lymph % (Auto) 29.4, Eaton % (Auto) 11.6 H, Eos % (Auto) 4.4, Baso % (Auto) 0.7, Absolute Neuts (auto) 3.3, Absolute Lymphs (auto) 1.80, Nucleated RBC % 0, Sodium 139, Potassium 3.8, Chloride 104, Carbon Dioxide 22.7, Anion Gap 13, BUN 32 H, Creatinine 2.34 H, Estim Creat Clear Calc 28.37 L, Est GFR (MDRD) Non-Af 28 L, BUN/Creatinine Ratio 13.6, Glucose 122 H, Hemoglobin A1c 7.0 H, Calcium 8.6 09/25/24 1037 <Electronically signed by Cory Conteh MD> Cosigner Signature (if applicable): CC: ~ Signed [facility] Work Phone: 1(132) 644-810506-20-2025 Consult note [facility] Medical Records Department [address] [place] [address] Anesthesia Postop Eval I 09/25/24 1223 MR#: [id number] Acct: [id number] Name: KIMBERLY NAVA Rep #:[id number] : 1945 79 From: Fran CABALLERO PCP: Dr. Kobi Adair MD Status :ADM CHINTAN Y Race: C Location: [place] [id number] -1 Anesthesia: Postop Eval I Current Vital Signs Temperature: 97.4 F Pulse Rate: 84 Blood Pressure: 87/60 Respiratory Rate: 16 Pulse Ox: 93 Oxygen Delivery Method: Room Air Assessment Airway patent: Yes Spontaneous unlabored respirations: Yes Mental status: Awake and Calm nausea: No Vomiting: No Anesthesia Complication: No Fluid Hydration Crystalloid volume administer (ml): 900 Total IV fluid infused: 900 Progress Note Anesthesia document: Postop Eval 1 completed: Yes 09/25/24 1226 SIGNAL FITTER> Date _ Fran Gates SIGNAL FITTER Cosigner Signature: Date CC: ~ Signed [facility]06-20-2025 Procedure note [facility] Medical Records Department [address] [place] [address] Operative Report 09/25/24 1219 MR#: [id number] Acct: [id number] Name: KIMBERLY NAVA Rep #:[id number] : 1945 79 From: Cory Conteh MD PCP: Dr. Kobi Adair MD Status :ADM CHINTAN Location: [place] [address] Operative Report (Standard) Operative Information Date of Procedure: 09/25/24 Pre-Operative Diagnosis: Distal left ureteral calculi Post-Operative Diagnosis: Impacted stone in the distal left ureter Surgery/Procedure Performed: Cystoscopy, left retrograde pyelogram, balloon dilation of left ureter, left ureteroscopy laser lithotripsy of stone and left stent family life counselor: No Type of Anesthesia: General RN Documented Start/Stop Times: Operation Date: 09/25/24 10:00 Case Time Into Pre-Op 09/25/24 09:05 Out of Pre-Op 09/25/24 10:49 Anesthesia Start 09/25/24 10:56 Into Room 09/25/24 10:56 Procedure Start 09/25/24 11:15 Procedure End 09/25/24 12:15 Procedure Start Time: 11:15 Procedure Stop Time: 12:20 Select all DRAINS/GRAFTS/IMPLANTS that apply: Drains Drain details: 6 Gabonese by 26 cm stent Estimated Blood Loss: None Specimen collected: No Description of surgery: Patient was taken back to the operating room after smooth induction of anesthesia he was placed in dorsolithotomy position went in the bladder with a 21 Gabonese rigid cystourethroscope he had a very large obstructive prostate inside the bladder I cannulated the left ureter orifice with a Glidewire Ithen balloon dilated the distal left ureter then under fluoroscopy I saw that the ureter would not coil the wire would not go past the stone we attempted multipletimes with no success I then left thewire in place and then over the wire went in with a flexible ureteroscope after we balloon dilated the distal ureter I then was able to get up to the stone he could see the stone completely impacted in the ureter I then used a 200 ?m thulium laser fiber with energy settings of 6Hz and 0.6 J and very slowly and very carefully started lasering the stone try and stay in the middle to avoid lasering the torre of the ureter as a laser thistook a long time to finally free up the stone and several frag ments and then finally broke loose from the impacted ureter I then lasered all the remaining fragments increase the fiber settings to 10 Hz and 1.0 J and finished lasering the stones completely into little tiny pieces that [facility] other stones were seen few tiny fragments up in the kidney all the stones been lasered completely and the smaller fragment that should pass on their own I then worked my way down the ureter put a wire up through the ureteroscope went to the distal ureter no other major fragments seen and then backed out of the ureter then over the wireI placed a stent was a 6 Gabonese by 26 cm stent advanced a stent in the good position once in good po sition the stent coiled in the kidney and bladder good position patient ascetic reversed plan to see him back next for cystoscopy stent removal in the office hewill go home today. He will gohome with antibiotics and his pain medicine. Surgical Findings: Stone impacted in the distal left ureter retrograde pyelogram none of the contrast will go past thestone completely impacted Complications Complications: No Admit VTE Documentation VTE Present on Admission: No VTE Mechan Device Prophylaxis: SCD's VTE Pharm Prophylaxis ordered?: No 09/25/24 1223 Cosigner Signature (if applicable): CC: Dr. Kobi Adair MD; Dr. Cory Conteh MD~ Signed [facility]06-20-2025 Consult note Author Kasi Alexandre [facility] Note Date/Time September 25, 2024 9:45 am [facility] Medical Records Department [address] [place] [address] Pre-Anesthesia Evaluation 09/25/24 0930 MR#: [id number] Acct: [id number] Name: KIMBERLY NAVA Rep #:[id number] : 1945 79 From: Kasi Alexandre MD PCP: Dr. Kobi Adair MD Status :ADM CHINTAN Y Race: C Location: [facility] -1 ASA Classification* ASA Classification ASA Classification: 3 Assessment & Plan Anesthesia* Anesthesia Assessment Anesthesia Assessment: Discussed sedation and/or anesthesia options, risks, benefits, and alternatives with patient/parents/legal guardian/POA. Questions invited. The patient/parents/legal guardian/POA seems to understand and agrees to proceedwith anesthesia plan. Reviewed the physical assessment, medical history, allergy history and patient home medications list prior to surgery/procedure/anesthetic and documented any changes. Performed airway and anesthesia risk assessments. Anesthesia Type Anesthesia Type: General (Cousin with history of MH. Avoid inhaled volatile anesthetics and succinylcholine. Patient is allergic to local anesthetics as well. Unclear reaction.) History Source History Obtained from:: Patient and Chart Anesthesia Focused Assessment* Temperature: 98.3 F Pulse Rate: 88 Blood Pressure: 141/86 Respiratory Rate: 16 Pulse Ox: 96 Oxygen Delivery Method: Room Air Oxygen Flow Rate (L/min): 2 Airway Assessment Mouth opens: >3 cm Mallampati Score: III Teeth Condition: Missing (Patient is edentulous.) Neck Range of motion (ROM): Limited ROM Labs Anesthesia Preop lab: CBC WBC 6.1 K/mm3 (4.4-11.0) 09/25/24 05:25 09/25/24 RBC 4.43 M/mm3 (4.6-6.2) L 09/25/24 05:25 09/25/24 Hgb 14.0 g/dL (13.0-16.5) 09/25/24 05:25 09/25/24 Hct 41.8 % (40-54) 09/25/24 05:25 09/25/24 Plt Count 129 K/mm3 (150-450) L 09/25/24 05:25 09/25/24 CHEMISTRY Potassium 3.8 mmol/L (3.3-5.1) 09/25/24 05:25 09/25/24 Sodium 139 mmol/L (133-145) 09/25/24 05:25 09/25/24 Magnesium 2.4 mg/dL (1.6-2.6) 04/14/24 11:09 04/14/24 Phosphorus 4.4 mg/dL (2.5-4.9) 04/29/13 06:20 04/29/13 BUN 32 mg/dL (4-19) H 09/25/24 05:25 09/25/24 Creatinine 2.34 mg/dL (0.70-1.20) H 09/25/24 05:25 Glucose 122 mg/dL (70-99) H 09/25/24 05:25 09/25/24 POC Glucose 150 mg/dL (74-106) H 04/17/24 21:45 04/17/24 COAG PT 14.3 SECONDS (11.7-14.9) 02/18/21 19:25 Pre-Assessment Diagnosis/Proposed Procedure Planned Operative Procedure(s): Cystoscopy, left ureteroscopy, laser stone and stent. Anesthesia History Anesthesia History - general assembler: Anesthesia History - general assembler Hx Hospitalization No 03/27/19 11:31 Any Problems With Anesthesia No 09/23/24 21:37 Cholinesterase deficiency No 09/23/24 21:37 You/Your Family Experience Yes: first cousin 09/23/24 21:37 fever (hyperthermia) with Relationship first cousin 09/23/24 21:37 Recent Exposure to Contagious No 09/23/24 21:37 Disease Does patient have nerve No 09/23/24 21:37 stimulator Patient instructed to have device shut off --Does patient have Pacemaker No 09/25/24 07:57 or ICD? When Was Last Pacemaker Check QUESTION #4 FULL TEXT: You/Your Family Experience fever (hyperthermia) with Anesthesia Last Oral Intake Last Oral intake: Last Oral Intake NPO since 00:00 09/25/24 07:57 Meds taken in AM with sips of Yes 09/25/24 07:57 water? Meds patient instructed to Lopressor 12.5mg at 0750 and 06/20/25 07:57 take am of surgery norvasc at the same time. PONV PONV - general assembler: PONV - general assembler Female HX of Motion Sickness HX of N/V After Surgery Non-Smoker Duration of Surgery greater than 60 minutes Number of Risk Factors PONV Score Height & Weight Height & Weight: Anesthesia: Height & Weight Height 5 ft 6 in 09/25/24 07:57 Weight: 100.2 kg 09/25/24 07:57 Body Mass Index (BMI) 35.6 09/25/24 07:57 Respiratory Assessment Respiratory Assessment - general assembler: Respiratory Tract Infection Hx - general assembler Hx Respiratory Tract Infection No 09/23/24 21:37 STOP Sleep Apnea STOP Sleep Apnea - general assembler: STOP Sleep Apnea - general assembler Hx Hypertension Yes 09/23/24 21:27 Hx Sleep Apnea Yes 09/23/24 21:27 CPAP Yes 09/23/24 21:27 BIPAP No 09/23/24 21:27 Do you snore loudly (louder than talking or can be heard Do you often feel tired/ fatigued/ sleepy during daytime? Has anyone observed you stop breathing during sleep? STOP Results Positive 09/23/24 21:27 QUESTION #5 FULL TEXT : Do you snore loudly (louder than talking or can be heard through closed doors)? 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 Specify any problems Hx of Preganancy in last 3 N/A 09/23/24 21:27 Months Nurse Filling Out Transfusion CSIGNORIN 09/23/24 21:27 & Questions: Date: 09/23/24 09/23/24 21:27 Time: 21:30 09/23/24 21:27 Patient unable to answer at this time (ie. confused, unrespo /Reproduction History /Reproductive History - general assembler: /Reproductive Hx- general assembler Hx Now Gestational Age (in weeks): EDC: Hx Hx Para Hx Section SAB Active Medications Active Medications: Current Medications Generic Name Dose Route Start Last Admin Trade Name Freq PRN Reason Stop Dose Admin Acetaminophen 500 mg 09/23/24 22:01 09/25/24 00:37 Acetaminophen 500 Mg Tablet PO 500 mg Q4H PRN PRN Administration Pain 1-10 or Fever Amlodipine Besylate 5 mg 09/24/24 10:00 09/25/24 07:51 Amlodipine 5 Mg Tablet PO 5 mg DAILY RUSTY Administration Protocol Atorvastatin Calcium 40 mg 09/24/24 22:00 09/24/24 21:12 Atorvastatin Calcium 40 Mg Tablet PO 40 mg QHS RUSTY Administration Carbidopa/Levodopa 1 each 09/24/24 22:00 09/24/24 21:12 Carbidopa/Levodopa 1 Each Tablet.Er PO 1 each QHS RUSTY Administration Docusate Sodium 100 mg 09/24/24 10:27 09/24/24 11:12 Docusate Sodium 100 Mg Capsule PO 100 mg DAILY PRN PRN Administration CONSTIPATION Famotidine 10 mg 09/24/24 10:00 09/24/24 21:13 Famotidine 20 Mg Tablet PO 10 mg BID RUSTY Administration Furosemide 20 mg 09/24/24 10:00 09/24/24 09:12 Furosemide 20 Mg Tablet PO 20 mg DAILY RUSTY Administration Protocol Sodium Chloride 250 mls @ 15 mls/hr 09/23/24 21:08 IV .[id number] PRN Saline Flush Sodium Chloride 250 mls @ 15 mls/hr 09/23/24 21:08 IV .[id number] PRN Additional IVPB Infusion Sodium Chloride 1,000 mls @ 50 mls/hr 09/23/24 22:05 09/25/24 06:06 IV 50 mls/hr .Q20H RUSTY Administration Cefazolin Sodium 2 gm/ Sodium 110 mls @ 200 mls/hr 09/25/24 09:26 Chloride IV 09/25/24 09:58 X1 ONE Insulin Glargine 30 unit 09/24/24 10:00 09/24/24 09:22 Insulin Glargine-Yfgn 100 Unit/Ml Pen SC 30 unit DAILY RUSTY Administration Insulin Human Lispro 8 unit 09/24/24 17:00 09/24/24 17:06 Insulin Lispro 100 Unit/Ml Insuln.Pen SC Not Given DINNER RUSTY Levothyroxine Sodium 200 mcg 09/24/24 08:00 09/25/24 05:03 Levothyroxine 100 Mcg Tablet PO Not Given DAILY@0600 [facility] Losartan Potassium 12.5 mg 09/24/24 10:00 09/24/24 09:11 Losartan Potassium 25 Mg Tablet PO 12.5 mg DAILY RUSTY Administration Protocol Metoprolol Tartrate 12.5 mg 09/24/24 10:00 09/25/24 07:50 Metoprolol Tartrate 25 Mg Tablet PO 12.5 mg BID [facility] Administration Protocol Morphine Sulfate 2 mg 09/23/24 22:01 09/24/24 05:29 Morphine 2 Mg/Ml Syringe IV 2 mg Q2H PRN PRN Administration Pain Score 6-10 Ondansetron HCl 4 mg 09/23/24 22:01 Ondansetron 4 Mg/2 Ml Vial IV Q6H PRN PRN NAUSEA/VOMITING Potassium Chloride 10 meq 09/24/24 08:00 09/25/24 07:52 Potassium Chloride Oral Tablet 10 Meq PO Not Given DAILYCM RUSTY Sertraline HCl 50 mg 09/24/24 10:00 09/24/24 09:14 Sertraline 50 Mg Tablet PO 50 mg DAILY RUSTY Administration Sodium Chloride 10 - 40 ml 09/23/24 21:08 09/24/24 05:29 0.9% Saline Lock 10 Ml Syringe IV 10 ml UD PRN Administration SALINE FLUSH Tamsulosin HCl 0.8 mg 09/24/24 22:00 09/24/24 21:12 Tamsulosin Hcl 0.4 Mg Capsule PO 0.8 mg QHS RUSTY Administration Tolterodine Tartrate 2 mg 09/24/24 10:00 09/24/24 09:12 Tolterodine Tartrate 2 Mg Cap.Sa PO 2 mg DAILY RUSTY Administration PFSH Medical History Former tobacco use History of [...] CHF (congestive heart failure) Hyperlipidemia Home Medications ?Medication ?Instructions ?Recorded ?Last Taken ?Type aspirin 81 mg chewable tablet 81 mg PO DAILY heart hea lth 03/10/13 04/14/24 History atorvastatin 40 mg tablet 40 mg PO QHS cholesterol 06/1804/13/24 History levothyroxine 200 mcg tablet 200 mcg PO DAILY thyroid 03/10/13 04/14/24 History (Levoxyl) nitroglycerin 0.4 mg sublingual 0.4 mg sublingual Q5M PRN Chest 03/10/13 05/02/18 History tablet Pain sertraline 50 mg tablet 50 mg PO DAILY mental health 04/14/15 05/02/18 History famotidine 10 mg tablet 10 mg PO DAILY reflux 04/14/24 History semaglutide 0.25 mg or 0.5 mg (2 0.5 mg subcut TH diab etes 02/18/21 Unknown History mg/1.5 mL) subcutaneous pen injector (Ozempic) carbidopa ER 25 mg-levodopa 100 mg 1 tab PO QHS tremor s 04/14/24 04/13/24 History tablet,extended release multivitamin with iron 1 tab PO DAILY multivitamin 04/14/24 04/14/24 History vit C 250 mg-vit E 90 mg-zinc 40 1 tab PO BID vitamin 04/14/24 04/14/24 History mg-copper 1 [id number]-wopqov capsule (PreserVision AREDS-2) clopidogrel 75 mg tablet 75 mg PO DAILY antiplatelet 09/23/24 Unknown History insulin aspart U-100 100 unit/mL 8 unit subcut QPM heydi bet09/23/24 Unknown History (3 mL) subcutaneous pen (Novolog FlexPen U-100 Insulin aspart) insulin glargine 100 unit/mL (3 30 unit subcut BID heydi bet09/23/24 Unknown History mL) subcutaneous pen (Lantus Solostar U-100 Insulin) losartan 25 mg tablet 12.5 mg PO DAILY htn 5 Unknown History potassium chloride 10 mEq 10 meq PO DAILY supplement 0 09/23/24 Unknown History tablet,extended release (Klor-Con) tamsulosin 0.4 mg capsule (Flomax) 0.8 mg PO QHS bladd er 09/23/24 Unknown History trospium 20 mg tablet 20 mg PO BID antispasmodic 0 09/23/24 Unknown History cholecalciferol (vitamin D3) 50 2,000 unit PO DAILY Unknown History mcg (2,000 unit) chewable tablet empagliflozin 25 mg tablet 25 mg PO DAILY 09/24/24 Unk nown History furosemide 20 mg tablet 20 mg PO Q12H diuretic 09/24 Unknown History magnesium oxide 420 mg tablet 420 mg PO QHS supplement 09/24/24 Unknown History metoprolol tartrate 25 mg tablet 50 mg PO Q12H htn 09/25/24 History trazodone 50 mg tablet 25 mg PO QHS PRN sleep 09/24 Unknown History Allergy/AdvReac Type Severity Reaction Status Date / Time Anesthetics - Amide Type - Allergy Other Verified 09/23/24 13:16 Select A Anesthetics - Rivka Type- Allergy Other Verified 09/23/24 13:16 Parabens albuterol AdvReac Mild thrush Verified 09/23/24 13:16 Family History Father CAD (coronary artery disease) Myocardial infarction Diabetes Heart disease Hypertension Brother Hypertension Diabetes Mother No problems noted. Surgical History S/P thyroidectomy S/P arthroscopic knee surgery S/P hemorrhoidectomy Hx of elbow surgery S/P CABG x 4 S/P coronary artery stent placement Hx of mitral valve repair Social History household members: spouse Smoking Status: Former smoker quit date: 09/26/73 pack-years: 5 how long ago did patient quit smoking: Additional chew tobacco use history, quit 01/15/2007. alcohol intake: never substance use type: does not use Review of Systems (Anesthesia) ROS Narrative System reviewed and no additional complaints, except as documented. 09/25/2445 <Electronically signed by Kasi balderas MD> Date _ Kasi Alexandre MD Cosigner Signature: Date CC: ~ Signed [facility] Work Phone: 1(940) 620-285206-20-2025 Consult note [facility] Medical Records Department [address] [place] [address] Pre-Anesthesia Evaluation 09/25/24929 MR#: [id number] Acct: [id number] Name: KIMBERLY NAVA Rep #:[id number] : 1945 79 From: Kasi Alexandre MD PCP: Dr. Kobi Adair MD Status :ADM CHINTAN Y Race: C Location: [place] [address] ASA Classification* ASA Classification ASA Classification: 3 Assessment & Plan Anesthesia* Anesthesia Assessment Anesthesia Assessment: Discussed sedation and/or anesthesia options, risks, benefits, and alternatives with patient/parents/legal guardian/POA. Questions invited. The patient/parents/legal guardian/POA seems to understand and agrees to proceedwith anesthesia plan. Reviewed the physical assessment, medical history, allergy history and patient home medications list prior to surgery/procedure/anesthetic and documented any changes. Performed airway and anesthesia risk assessments. Anesthesia Type Anesthesia Type: General (Cousin with history of MH. Avoid inhaled volatile anesthetics and succinylcholine. Patient is allergic to local anesthetics as well. Unclear reaction.) History Source History Obtained from:: Patient and Chart Anesthesia Focused Assessment* Temperature: 98.3 F Pulse Rate: 88 Blood Pressure: 141/86 Respiratory Rate: 16 Pulse Ox: 96 Oxygen Delivery Method: Room Air Oxygen Flow Rate (L/min): 2 Airway Assessment Mouth opens: >3 cm Mallampati Score: III Teeth Condition: Missing (Patient is edentulous.) Neck Range of motion (ROM): Limited ROM Labs Anesthesia Preop lab: CBC WBC 6.1 K/mm3 (4.4-11.0) 09/25/24 05:25 09/25/24 RBC 4.43 M/mm3 (4.6-6.2) L 09/25/24 05:25 09/25/24 Hgb 14.0 g/dL (13.0-16.5) 09/25/24 05:25 09/25/24 Hct 41.8 % (40-54) 09/25/24 05:25 09/25/24 Plt Count 129 K/mm3 (150-450) L 09/25/24 05:25 09/25/24 CHEMISTRY Potassium 3.8 mmol/L (3.3-5.1) 09/25/24 05:25 09/25/24 Sodium 139 mmol/L (133-145) 09/25/24 05:25 09/25/24 Magnesium 2.4 mg/dL (1.6-2.6) 04/14/24 11:09 04/14/24 Phosphorus 4.4 mg/dL (2.5-4.9) 04/29/13 06:20 04/29/13 BUN 32 mg/dL (4-19) H 09/25/24 05:25 09/25/24 Creatinine 2.34 mg/dL (0.70-1.20) H 09/25/24 05:25 Glucose 122 mg/dL (70-99) H 09/25/24 05:25 09/25/24 POC Glucose 150 mg/dL (74-106) H 04/17/24 21:45 04/17/24 COAG PT 14.3 SECONDS (11.7-14.9) 02/18/21 19:25 Pre-Assessment Diagnosis/Proposed Procedure Planned Operative Procedure(s): Cystoscopy, left ureteroscopy, laser stone and stent. Anesthesia History Anesthesia History - general assembler: Anesthesia History - general assembler Hx Hospitalization No 03/27/19 11:31 Any Problems With Anesthesia No 09/23/24 21:37 Cholinesterase deficiency No 09/23/24 21:37 You/Your Family Experience Yes: first cousin 09/23/24 21:37 fever (hyperthermia) with Relationship first cousin 09/23/24 21:37 Recent Exposure to Contagious No 09/23/24 21:37 Disease Does patient have nerve No 09/23/24 21:37 stimulator Patient instructed to have device shut off --Does patient have Pacemaker No 09/25/24 07:57 or ICD? When Was Last Pacemaker Check QUESTION #4 FULL TEXT: You/Your Family Experience fever (hyperthermia) with Anesthesia Last Oral Intake Last Oral intake: Last Oral Intake NPO since 00:00 09/25/24 07:57 Meds taken in AM with sips of Yes 09/25/24 07:57 water? Meds patient instructed to Lopressor 12.5mg at 0750 and 09/25/24 07:57 take am of surgery norvasc at the same time. PONV PONV - general assembler: PONV - general assembler Female HX of Motion Sickness HX of N/V After Surgery Non-Smoker Duration of Surgery greater than 60 minutes Number of Risk Factors PONV Score Height & Weight Height & Weight: Anesthesia: Height & Weight Height 5 ft 6 in 09/25/24 07:57 Weight: 100.2 kg 09/25/24 07:57 Body Mass Index (BMI) 35.6 09/25/24 07:57 Respiratory Assessment Respiratory Assessment - general assembler: Respiratory Tract Infection Hx - general assembler Hx Respiratory Tract Infection No 09/23/24 21:37 STOP Sleep Apnea STOP Sleep Apnea - general assembler: STOP Sleep Apnea - general assembler Hx Hypertension Yes 09/23/24 21:27 Hx Sleep Apnea Yes 09/23/24 21:27 CPAP Yes 09/23/24 21:27 BIPAP No 09/23/24 21:27 Do you snore loudly (louder than talking or can be heard Do you often feel tired/ fatigued/ sleepy during daytime? Has anyone observed you stop breathing during sleep? STOP Results Positive 09/23/24 21:27 QUESTION #5 FULL TEXT : Do you snore loudly (louder than talking or can be heard through closeddoors)? 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 Specify any problems Hx of Preganancy in last 3 N/A 09/23/24 21:27 Months Nurse Filling Out Transfusion CSIGNORIN 09/23/24 21:27 & Questions: Date: 09/23/24 09/23/24 21:27 Time: 21:30 09/23/24 21:27 Patient unable to answer at this time (ie. confused, unrespo /Reproduction History /Reproductive History - general assembler: /Reproductive Hx- general assembler Hx Now Gestational Age (in weeks): EDC: Hx Hx Para Hx Section SAB Active Medications Active Medications: Current Medications Generic Name Dose Route Start Last Admin Trade Name Freq PRN Reason Stop Dose Admin Acetaminophen 500 mg 09/23/24 22:01 09/25/24 00:37 Acetaminophen 500 Mg Tablet PO 500 mg Q4H PRN PRN Administration Pain 1-10 or Fever Amlodipine Besylate 5 mg 09/24/24 10:00 09/25/24 07:51 Amlodipine 5 Mg Tablet PO 5 mg DAILY RUSTY Administration Protocol Atorvastatin Calcium 40 mg 09/24/24 22:00 09/24/24 21:12 Atorvastatin Calcium 40 Mg Tablet PO 40 mg QHS RUSTY Administration Carbidopa/Levodopa 1 each 09/24/24 22:00 09/24/24 21:12 Carbidopa/Levodopa 1 Each Tablet.Er PO 1 each QHS RUSTY Administration Docusate Sodium 100 mg 09/24/24 10:27 09/24/24 11:12 Docusate Sodium 100 Mg Capsule PO 100 mg DAILY PRN PRN Administration CONSTIPATION Famotidine 10 mg 09/24/24 10:00 09/24/24 21:13 Famotidine 20 Mg Tablet PO 10 mg BID RUSTY Administration Furosemide 20 mg 09/24/24 10:00 09/24/24 09:12 Furosemide 20 Mg Tablet PO 20 mg DAILY RUSTY Administration Protocol Sodium Chloride 250 mls @ 15 mls/hr 09/23/24 21:08 IV .[id number] PRN Saline Flush Sodium Chloride 250 mls @ 15 mls/hr 09/23/24 21:08 IV .[id number] PRN Additional IVPB Infusion Sodium Chloride 1,000 mls @ 50 mls/hr 09/23/24 22:05 09/25/24 06:06 IV 50 mls/hr .Q20H RUSTY Administration Cefazolin Sodium 2 gm/ Sodium 110 mls @ 200 mls/hr 09/25/24 09:26 Chloride IV 09/25/24 09:58 X1 ONE Insulin Glargine 30 unit 09/24/24 10:00 09/24/24 09:22 Insulin Glargine-Yfgn 100 Unit/Ml Pen SC 30 unit DAILY RUSTY Administration Insulin Human Lispro 8 unit 09/24/24 17:00 09/24/24 17:06 Insulin Lispro 100 Unit/Ml Insuln.Pen SC Not Given [facility] Levothyroxine Sodium 200 mcg 09/24/24 08:00 09/25/24 05:03 Levothyroxine 100 Mcg Tablet PO Not Given DAILY@0600 [facility] Losartan Potassium 12.5 mg 09/24/24 10:00 09/24/24 09:11 Losartan Potassium 25 Mg Tablet PO 12.5 mg DAILY RUSTY Administration Protocol Metoprolol Tartrate 12.5 mg 09/24/24 10:00 09/25/24 07:50 Metoprolol Tartrate 25 Mg Tablet PO 12.5 mg BID RUTSY Administration Protocol Morphine Sulfate 2 mg 09/23/24 22:01 09/24/24 05:29 Morphine 2 Mg/Ml Syringe IV 2 mg Q2H PRN PRN Administration Pain Score 6-10 Ondansetron HCl 4 mg 09/23/24 22:01 Ondansetron 4 Mg/2 Ml Vial IV Q6H PRN PRN NAUSEA/VOMITING Potassium Chloride 10 meq 09/24/24 08:00 09/25/24 07:52 Potassium Chloride Oral Tablet 10 Meq PO Not Given DAILYCM [facility] Sertraline HCl 50 mg 09/24/24 10:00 09/24/24 09:14 Sertraline 50 Mg Tablet PO 50 mg DAILY RUSTY Administration Sodium Chloride 10 - 40 ml 09/23/24 21:08 09/24/24 05:29 0.9% Saline Lock 10 Ml Syringe IV 10 ml UD PRN Administration SALINE FLUSH Tamsulosin HCl 0.8 mg 09/24/24 22:00 09/24/24 21:12 Tamsulosin Hcl 0.4 Mg Capsule PO 0.8 mg QHS RUSTY Administration Tolterodine Tartrate 2 mg 09/24/24 10:00 09/24/24 09:12 Tolterodine Tartrate 2 Mg Cap.Sa PO 2 mg DAILY RUSTY Administration PFSH Medical History Former tobacco use History of [...] CHF (congestive heart failure) Hyperlipidemia Home Medications ?Medication ?Instructions ?Recorded ?Last Taken ?Type aspirin 81 mg chewable tablet 81 mg PO DAILY heart hea lth 03/10/13 04/14/24 History atorvastatin 40 mg tablet 40 mg PO QHS cholesterol 06/1804/13/24 History levothyroxine 200 mcg tablet 200 mcg PO DAILY thyroid 03/10/13 04/14/24 History (Levoxyl) nitroglycerin 0.4 mg sublingual 0.4 mg sublingual Q5M PRN Chest 03/10/13 05/02/18 History tablet Pain sertraline 50 mg tablet 50 mg PO DAILY mental health 04/14/15 05/02/18 History famotidine 10 mg tablet 10 mg PO DAILY reflux 04/14/24 History semaglutide 0.25 mg or 0.5 mg (2 0.5 mg subcut TH diab etes 02/18/21 Unknown History mg/1.5 mL) subcutaneous pen injector (Ozempic) carbidopa ER 25 mg-levodopa 100 mg 1 tab PO QHS tremor s 04/14/24 04/13/24 History tablet,extended release multivitamin with iron 1 tab PO DAILY multivitamin 04/14/24 04/14/24 History vit C 250 mg-vit E 90 mg-zinc 40 1 tab PO BID vitamin 04/14/24 04/14/24 History mg-copper 1 [id number] capsule (PreserVision AREDS-2) clopidogrel 75 mg tablet 75 mg PO DAILY antiplatelet 09/23/24 Unknown History insulin aspart U-100 100 unit/mL 8 unit subcut QPM heydi betes 09/23/24 Unknown History (3 mL) subcutaneous pen (Novolog FlexPen U-100 Insulin aspart) insulin glargine 100 unit/mL (3 30 unit subcut BID heydi betes 09/23/24 Unknown History mL) subcutaneous pen (Lantus Solostar U-100 Insulin) losartan 25 mg tablet 12.5 mg PO DAILY htn 5 Unknown History potassium chloride 10 mEq 10 meq PO DAILY supplement 0 09/23/24 Unknown History tablet,extended release (Klor-Con) tamsulosin 0.4 mg capsule (Flomax) 0.8 mg PO QHS bladd er 09/23/24 Unknown History trospium 20 mg tablet 20 mg PO BID antispasmodic 0 09/23/24 Unknown History cholecalciferol (vitamin D3) 50 2,000 unit PO DAILY Unknown History mcg (2,000 unit) chewable tablet empagliflozin 25 mg tablet 25 mg PO DAILY 09/24/24 Unk nown History furosemide 20 mg tablet 20 mg PO Q12H diuretic 09/24 Unknown History magnesium oxide 420 mg tablet 420 mg PO QHS supplement 09/24/24 Unknown History metoprolol tartrate 25 mg tablet 50 mg PO Q12H htn 09/25/24 History trazodone 50 mg tablet 25 mg PO QHS PRN sleep 09/24 Unknown History Allergy/AdvReac Type Severity Reaction Status Date / Time Anesthetics - Amide Type - Allergy Other Verified 09/23/24 13:16 Select A Anesthetics - Rivka Type- Allergy Other Verified 09/23/24 13:16 Parabens albuterol AdvReac Mild thrush Verified 09/23/24 13:16 Family History Father CAD (coronary artery disease) Myocardial infarction Diabetes Heart disease Hypertension Brother Hypertension Diabetes Mother No problems noted. Surgical History S/P thyroidectomy S/P arthroscopic knee surgery S/P hemorrhoidectomy Hx of elbow surgery S/P CABG x 4 S/P coronary artery stent placement Hx of mitral valve repair Social History household members: spouse Smoking Status: Former smoker quit date: 09/26/73 pack-years: 5 how long ago did patient quit smoking: Additional chew tobacco use history, quit 01/15/2007. alcohol intake: never substance use type: does not use Review of Systems (Anesthesia) ROS Narrative System reviewed and no additional complaints, except as documented. 09/25/24 0945 sherrie ELAM> Date _ Kasi Alexandre MD Cosigner Signature: Date CC: ~ Signed [facility]06-19-2025 History and physical note Author Cory Conteh [facility] Note Date/Time September 24, 2024 7:10 am [facility] Medical Records Department [address] [place] [address] History & Physical Exam 09/24/24 0708 MR#: [id number] Acct: [id number] Name: KIMBERLY NAVA Rep #:[id number] : 1945 79 From: Cory Conteh MD PCP: Dr. Kobi Adair MD Status :ADM CHINTAN [place] [facility] [id number] HPI - General General Date of Admission: 09/23/24 Date of Service: 09/23/24 Chief Complaint: Left obstructing ureteral calculus HPI Narrative KIMBERLY NAVA, is a 79 M who presents with intractable pain from a obstructing stone in the left mid ureter chronic chronic kidney disease he is can be admitted for pain control and management of the stone. Put him on the surgery schedule for left ureteroscopy laser of stone and stent placement. [facility] Medical History Former tobacco use History [...] CHF (congestive heart failure) Hyperlipidemia Home Medications ?Medication ?Instructions ?Recorded ?Last Taken ?Type aspirin 81 mg chewable tablet 81 mg PO DAILY heart hea lth 03/10/13 04/14/24 History atorvastatin 40 mg tablet 40 mg PO QHS cholesterol 06/1804/13/24 History levothyroxine 200 mcg tablet 200 mcg PO DAILY thyroid 03/10/13 04/14/24 History (Levoxyl) nitroglycerin 0.4 mg sublingual 0.4 mg sublingual Q5M PRN Chest 03/10/13 05/02/18 History tablet Pain sertraline 50 mg tablet 50 mg PO DAILY mental health 04/14/15 05/02/18 History famotidine 10 mg tablet 10 mg PO BID reflux 02/18/21 04/14/24 History semaglutide 0.25 mg or 0.5 mg (2 0.5 mg subcut TH diab etes 02/18/21 Unknown History mg/1.5 mL) subcutaneous pen injector (Ozempic) carbidopa ER 25 mg-levodopa 100 mg 1 tab PO QHS tremor s 04/14/24 04/13/24 History tablet,extended release multivitamin with iron 1 tab PO DAILY multivitamin 04/14/24 04/14/24 History vit C 250 mg-vit E 90 mg-zinc 40 1 tab PO BID vitamin 04/14/24 04/14/24 History mg-copper 1 [id number] capsule (PreserVision AREDS-2) furosemide 20 mg tablet 20 mg PO DAILY diuretic #30 tabs 04/17/24 04/14/24 Rx metoprolol tartrate 25 mg tablet 12.5 mg (1/2 x 25 mg) PO BID htn 04/17/24 Unknown Rx 30 days #30 tabs amlodipine 5 mg tablet 5 mg PO QDAY 05/01/24 Unknow n History clopidogrel 75 mg tablet 75 mg PO DAILY antiplatelet 09/23/24 Unknown History insulin aspart U-100 100 unit/mL 8 unit subcut QPM heydi betes 09/23/24 Unknown History (3 mL) subcutaneous pen (Novolog FlexPen U-100 Insulin aspart) insulin glargine 100 unit/mL (3 30 unit subcut DAILY d iabetes 09/23/24 Unknown History mL) subcutaneous pen (Lantus Solostar U-100 Insulin) losartan 25 mg tablet 12.5 mg PO DAILY htn 5 Unknown History potassium chloride 10 mEq 10 meq PO DAILY supplement 0 09/23/24 Unknown History tablet,extended release (Klor-Con) tamsulosin 0.4 mg capsule (Flomax) 0.8 mg PO QHS bladd er 09/23/24 Unknown History trospium 20 mg tablet 20 mg PO BID antispasmodic 0 09/23/24 Unknown History Allergy/AdvReac Type Severity Reaction Status Date / Time Anesthetics - Amide Type - Allergy Other Verified 09/23/24 13:16 Select A Anesthetics - Rivka Type- Allergy Other Verified 09/23/24 13:16 Parabens albuterol AdvReac Mild thrush Verified 09/23/24 13:16 Family History Father CAD (coronary artery disease) Myocardial infarction Diabetes Heart disease Hypertension Brother Hypertension Diabetes Mother No problems noted. Surgical History S/P thyroidectomy S/P arthroscopic knee surgery S/P hemorrhoidectomy Hx of elbow surgery S/P CABG x 4 S/P coronary artery stent placement Hx of mitral valve repair Social History household members: spouse Smoking Status: Former smoker quit date: 09/26/73 pack-years: 5 how long ago did patient quit smoking: Additional chew tobacco use history, quit 01/15/2007. alcohol intake: never substance use type: does not use Vital Signs Vital Signs Vital Signs: 09/23/24 13:13 09/23/24 16:13 06/18/25 18:00 Temperature 98.3 F 98.6 F Temperature Source Oral Oral Pulse Rate 88 78 89 Pulse Strength Respiratory Rate 16 16 18 Respiratory Effort Respiratory Depth Respiratory Pattern Blood Pressure 149/98 H 141/64 H 132/78 H Blood Pressure Mean 115 89 96 Blood Pressure Source Blood Pressure Position Blood Pressure Location Pulse Ox 98 98 99 Oxygen Delivery Method Room Air Room Air Room Air 09/23/24 20:06 09/23/24 21:21 09/23/24 21:39 Temperature 99.1 F 97.6 F L Temperature Source Oral Pulse Rate 85 87 Pulse Strength Respiratory Rate 18 18 Respiratory Effort Normal Non-Labored Respiratory Depth Normal Respiratory Pattern Normal Blood Pressure 158/95 H 137/78 H Blood Pressure Mean 116 97 Blood Pressure Source Monitor Blood Pressure Position Semi-Fowlers Blood Pressure Location Right Arm Pulse Ox 96 95 Oxygen Delivery Method Room Air Room Air 09/23/24 22:09 09/24/24 03:07 09/24/24 05:27 Temperature 98.1 F Temperature Source Oral Pulse Rate 87 Pulse Strength Normal (2+) Respiratory Rate 16 Respiratory Effort Normal Non-Labored Respiratory Depth Normal Respiratory Pattern Normal Blood Pressure 149/88 H Blood Pressure Mean 108 Blood Pressure Source Monitor Blood Pressure Position Semi-Fowlers Blood Pressure Location Right Arm Pulse Ox 94 Oxygen Delivery Method Room Air Room Air Weight Weight: 100.2 kg Body Mass Index (BMI) 34.7 Physical Exam Const alert and oriented x3 General Appearance: cooperative HEENT normocephalic, head/scalp atraumatic, EAC's normal and TM's normal bilaterally Eyes PERRL and EOMs intact bilaterally Pupil: sluggish Neck no lymphadenopathy, supple and no JVD General: trachea midline Lymph Lymphatic: no lymphadenopathy noted, lymphedema and lymphadenopathy Resp normal respiratory effort, normal air movement and clear to auscultation bilaterally Cardio regular rate, regular rhythm and peripheral pulses 2+ throughout GI soft to palpation, non-tender and non-distended Extremity normal capillary refill and no clubbing, cyanosis or edema General Extremity: no tenderness to palpation of joints or extremities Skin no rashes or lesions noted General Skin Exam: turgor normal Lesions: no lesions Rashes: no rashes Neuro CN's II-XII intact bilaterally Speech: speech normal Motor Exam: strength 5/5 throughout; Negative for general weakness Psych thought process normal, cooperative and affect normal Appearance: appropriate Results Medical Records Data Attestation: I reviewed the patient's medical records Lab / Micro Data 09/23/24 14:09 09/23/24 14:09 Labs: Laboratory Results - last 24 hr 09/23/24 14:09: WBC 7.0, RBC 5.20, Hgb 16.2, Hct 48.6, MCV 93.5, MCH 31.2, MCHC 33.3, RDW Std Deviation 45.6 H, RDW Coeff of Luther 13.4, Plt Count 150, MPV 10.5, Immature Gran % (Auto) 0.300, Neut % (Auto) 72.2 H, Lymph % (Auto) 15.4 L, Eaton % (Auto) 9.1, Eos % (Auto) 2.4, Baso % (Auto) 0.6, Absolute Neuts (auto) 5.0, Absolute Lymphs (auto) 1.07, Nucleated RBC % 0, Sodium 138, Potassium 4.4, Chloride 101, Carbon Dioxide 23.1, Anion Gap 15, BUN 34 H, Creatinine 2.08 H, Estim Creat Clear Calc 33.03 L, Est GFR (MDRD) Non-Af 32 L, BUN/Creatinine Ratio 16.3, Glucose 210 H, Calcium 9.2, Total Bilirubin 1.07, AST 23, ALT 13, AlkalinePhosphatase 124, Total Protein 7.0, Albumin 4.3, Globulin 2.7, Albumin/Globulin Ratio 1.6, Lipase 44 09/23/24 19:19: Urine Color Yellow, Urine Clarity Clear, Urine pH 7.0, Ur Specific Gamaliel 1.010, Urine Protein 30 H, Urine Glucose (UA) 1000 H, Urine Ketones Negative, Urine Occult Blood 10 H, Urine Nitrite Negative, Urine Bilirubin Negative, Urine Urobilinogen Normal, Ur Leukocyte Esterase Negative, Urine RBC 0-5 SEEN, Urine WBC 0-5 SEEN, Ur Squamous Epith Cells 0-5 SEEN, Urine Bacteria 0 SEEN, Urine Mucus 0 SEEN Imaging Radiology Impression Abdomen/Pelvis CT 09/23/24 17:04 IMPRESSION: Left distal ureter 6 mm calculus with [id number] upstream hydroureteronephrosis. Severe prostatomegaly. Reading Location: [place] [address] Abdomen X-Ray 09/24/24 06:10 IMPRESSION: There is a 9 mm ureteral stone overlying the left SI joint which corresponds with the left ureteral stone seen on the recent CT in this region. Reading Location: [facility] Assessment & Plan Assessment/Plan (1) Chronic kidney disease (CKD): (2) Intractable pain: (3) Inability to walk: (4) Ureteral calculus: PLAN: Plan to take the surgery for ureteroscopy laser lithotripsy of stone and stent placement left side n.p.o. midnight 09/24/24 0710 <Electronically signed by Cory Conteh MD> Cosigner Signature (if applicable): CC: Dr. Kobi Adair MD; Dr. Cory Conteh MD~ Signed [facility] Work Phone: [phone] 659-835406-19-2025 History and physical note [facility] Medical Records Department [address] [place] [id number] History & Physical Exam 09/24/24 0708 MR#: [id number] Acct: [id number] Name: KIMBERLY NAVA Rep #:[id number] : 1945 79 From: Cory Conteh MD PCP: Dr. Kobi Adair MD Status :ADM CHINTAN [place] [facility] [place] [id number] - General General Date of Admission: 09/23/24 Date of Service: 09/23/24 Chief Complaint: Left obstructing ureteral calculus HPI Narrative KIMBERLY NAVA, is a 79 M who presents with intractable pain from a obstructing stone in the left mid ureter chronic chronic kidney disease he is can be admitted for pain control and management of thestone. Put him on the surgery schedule for left ureteroscopy laser of stone and stent placement. [facility] Medical History Former tobacco use History [...] CHF (congestive heart failure) Hyperlipidemia Home Medications ?Medication ?Instructions ?Recorded ?Last Taken ?Type aspirin 81 mg chewable tablet 81 mg PO DAILY heart hea lth 03/10/13 04/14/24 History atorvastatin 40 mg tablet 40 mg PO QHS cholesterol 06/1804/13/24 History levothyroxine 200 mcg tablet 200 mcg PO DAILY thyroid 03/10/13 04/14/24 History (Levoxyl) nitroglycerin 0.4 mg sublingual 0.4 mg sublingual Q5M PRN Chest 03/10/13 05/02/18 History tablet Pain sertraline 50 mg tablet 50 mg PO DAILY mental health 04/14/15 05/02/18 History famotidine 10 mg tablet 10 mg PO BID reflux 02/18/21 04/14/24 History semaglutide 0.25 mg or 0.5 mg (2 0.5 mg subcut TH diab etes 02/18/21 Unknown History mg/1.5 mL) subcutaneous pen injector (Ozempic) carbidopa ER 25 mg-levodopa 100 mg 1 tab PO QHS tremor s 04/14/24 04/13/24 History tablet,extended release multivitamin with iron 1 tab PO DAILY multivitamin 04/14/24 04/14/24 History vit C 250 mg-vit E 90 mg-zinc 40 1 tab PO BID vitamin 04/14/24 04/14/24 History mg-copper 1 [id number] capsule (PreserVision AREDS-2) furosemide 20 mg tablet 20 mg PO DAILY diuretic #30 tabs 04/17/24 04/14/24 Rx metoprolol tartrate 25 mg tablet 12.5 mg (1/2 x 25 mg) PO BID htn 04/17/24 Unknown Rx 30 days #30 tabs amlodipine 5 mg tablet 5 mg PO QDAY 05/01/24 Unknow n History clopidogrel 75 mg tablet 75 mg PO DAILY antiplatelet 09/23/24 Unknown History insulin aspart U-100 100 unit/mL 8 unit subcut QPM heydi betes 09/23/24 Unknown History (3 mL) subcutaneous pen (Novolog FlexPen U-100 Insulin aspart) insulin glargine 100 unit/mL (3 30 unit subcut DAILY d iabetes 09/23/24 Unknown History mL) subcutaneous pen (Lantus Solostar U-100 Insulin) losartan 25 mg tablet 12.5 mg PO DAILY htn 5 Unknown History potassium chloride 10 mEq 10 meq PO DAILY supplement 0 09/23/24 Unknown History tablet,extended release (Klor-Con) tamsulosin 0.4 mg capsule (Flomax) 0.8 mg PO QHS bladd er 09/23/24 Unknown History trospium 20 mg tablet 20 mg PO BID antispasmodic 0 09/23/24 Unknown History Allergy/AdvReac Type Severity Reaction Status Date / Time Anesthetics - Amide Type - Allergy Other Verified 09/23/24 13:16 Select A Anesthetics - Rivka Type- Allergy Other Verified 09/23/24 13:16 Parabens albuterol AdvReac Mild thrush Verified 09/23/24 13:16 Family History Father CAD (coronary artery disease) Myocardial infarction Diabetes Heart disease Hypertension Brother Hypertension Diabetes Mother No problems noted. Surgical History S/P thyroidectomy S/P arthroscopic knee surgery S/P hemorrhoidectomy Hx of elbow surgery S/P CABG x 4 S/P coronary artery stent placement Hx of mitral valve repair Social History household members: spouse Smoking Status: Former smoker quit date: 09/26/73 pack-years: 5 how long ago did patient quit smoking: Additional chew tobacco use history, quit 01/15/2007. alcohol intake: never substance use type: does not use Vital Signs Vital Signs Vital Signs: 09/23/24 13:13 09/23/24 16:13 09/23/24 18:00 Temperature 98.3 F 98.6 F Temperature Source Oral Oral Pulse Rate 88 78 89 Pulse Strength Respiratory Rate 16 16 18 Respiratory Effort Respiratory Depth Respiratory Pattern Blood Pressure 149/98 H 141/64 H 132/78 H Blood Pressure Mean 115 89 96 Blood Pressure Source Blood Pressure Position Blood Pressure Location Pulse Ox 98 98 99 Oxygen Delivery Method Room Air Room Air Room Air 09/23/24 20:06 09/23/24 21:21 09/23/24 21:39 Temperature 99.1 F 97.6 F L Temperature Source Oral Pulse Rate 85 87 Pulse Strength Respiratory Rate 18 18 Respiratory Effort Normal Non-Labored Respiratory Depth Normal Respiratory Pattern Normal Blood Pressure 158/95 H 137/78 H Blood Pressure Mean 116 97 Blood Pressure Source Monitor Blood Pressure Position Semi-Fowlers Blood Pressure Location Right Arm Pulse Ox 96 95 Oxygen Delivery Method Room Air Room Air 09/23/24 22:09 09/24/24 03:07 09/24/24 05:27 Temperature 98.1 F Temperature Source Oral Pulse Rate 87 Pulse Strength Normal (2+) Respiratory Rate 16 Respiratory Effort Normal Non-Labored Respiratory Depth Normal Respiratory Pattern Normal Blood Pressure 149/88 H Blood Pressure Mean 108 Blood Pressure Source Monitor Blood Pressure Position Semi-Fowlers Blood Pressure Location Right Arm Pulse Ox 94 Oxygen Delivery Method Room Air Room Air Weight Weight: 100.2 kg Body Mass Index (BMI) 34.7 Physical Exam Const alert and oriented x3 General Appearance: cooperative HEENT normocephalic, head/scalp atraumatic, EAC's normal and TM's normal bilaterally Eyes PERRL and EOMs intact bilaterally Pupil: sluggish Neck no lymphadenopathy, supple and no JVD General: trachea midline Lymph Lymphatic: no lymphadenopathy noted, lymphedema and lymphadenopathy Resp normal respiratory effort, normal air movement and clear to auscultation bilaterally Cardio regular rate, regular rhythm and peripheral pulses 2+ throughout GI soft to palpation, non-tender and non-distended Extremity normal capillary refill and no clubbing, cyanosis or edema General Extremity: no tenderness to palpation of joints or extremities Skin no rashes or lesions noted General Skin Exam: turgor normal Lesions: no lesions Rashes: no rashes Neuro CN's II-XII intact bilaterally Speech: speech normal Motor Exam: strength 5/5 throughout; Negative for general weakness Psych thought process normal, cooperative and affect normal Appearance: appropriate Results Medical Records Data Attestation: I reviewed the patient's medical records Lab / Micro Data 09/23/24 14:09 09/23/24 14:09 Labs: Laboratory Results - last 24 hr 09/23/24 14:09: WBC 7.0, RBC 5.20, Hgb 16.2, Hct 48.6, MCV 93.5, MCH 31.2, MCHC 33.3, RDW Std Deviation 45.6 H, RDW Coeff of Luther 13.4, Plt Count 150, MPV 10.5, Immature Gran % (Auto) 0.300, Neut % (Auto) 72.2 H, Lymph % (Auto) 15.4 L, Eaton % (Auto) 9.1, Eos % (Auto) 2.4, Baso % (Auto) 0.6, AbsoluteNeuts (auto) 5.0, Absolute Lymphs (auto) 1.07, Nucleated RBC % 0, Sodium 138, Potassium 4.4, Chloride 101, Carbon Dioxide 23.1, Anion Gap 15, BUN 34 H, Creatinine 2.08 H, Estim Creat Clear Calc 33.03L, Est GFR (MDRD) Non-Af 32 L, BUN/Creatinine Ratio 16.3, Glucose 210 H, Calcium 9.2, Total Bilirubin 1.07, AST 23, ALT 13, AlkalinePhosphatase 124, Total Protein 7.0, Albumin 4.3, Globulin 2.7, Album in/Globulin Ratio 1.6, Lipase 44 09/23/24 19:19: Urine Color Yellow, Urine Clarity Clear, Urine pH 7.0, Ur Specific Gamaliel 1.010, Urine Protein 30 H, Urine Glucose (UA) 1000 H, Urine Ketones Negative, Urine Occult Blood 10 H, UrineNitrite Negative, Urine Bilirubin Negative, Urine Urobilinogen Normal, Ur Leukocyte Esterase Negative, Urine RBC 0-5 SEEN, Urine WBC 0-5 SEEN, Ur Squamous Epith Cells 0-5 SEEN, Urine Bacteria 0 SEEN,Urine Mucus 0 SEEN Imaging Radiology Impression Abdomen/Pelvis CT 09/23/24 17:04 IMPRESSION: Left distal ureter 6 mm calculus with inlnhfwd-xm-mxltel upstream hydroureteronephrosis. Severe prostatomegaly. Reading Location: [id number] Abdomen X-Ray 09/24/24 06:10 IMPRESSION: There is a 9 mm ureteral stone overlying the left SI joint which corresponds with the left ureteralstone seen on the recent CT in this region. Reading Location: [facility] Assessment & Plan Assessment/Plan (1) Chronic kidney disease (CKD): (2) Intractable pain: (3) Inability to walk: (4) Ureteral calculus: PLAN: Plan to take the surgery for ureteroscopy laser lithotripsy of stone and stent placement leftside n.p.o. midnight 09/24/24 0710 Cosigner Signature (if applicable): CC: Dr. Kobi Adair MD; Dr. Cory Conteh MD~ Signed [facility]06-19-2025 [facility] Medical Records Department [address] [place] [address] History Physical Exam 09/24/24 0708 MR#: [id number] Acct: [id number] Name: KIMBERLY NAVA Rep #: [id number] : 1945 79 From: Cory Conteh MD PCP: Dr. Kobi Adair MD Status:ADM CHINTAN [id number] HPI - General General Date of Admission: 09/23/24 Date of Service: 09/23/24 Chief Complaint: Left obstructing ureteral calculus HPI Narrative KIMBERLY NAVA, is a 79 M who presents with intractable pain from a obstructing stone in the left mid ureter chronic chronic kidney disease he is can be admitted for pain control and management of the stone. Put him on the surgery schedule for left ureteroscopy laser of stone and stent placement. [facility] Medical History Former tobacco use History of COV- History of DVT (deep vein thrombosis) Coronary [...] tablet 81 mg PO DAILY heart health 04/14/24 History atorvastatin 40 mg tablet 40 mg PO QHS cholesterol 03/10/13 04/13/24 History levothyroxine 200 mcg tablet 200 mcg PO DAILY thyroid 03/10/13 04/14/24 History (Levoxyl) nitroglycerin 0.4 mg sublingual 0.4 mg sublingual Q5M PRN Chest 05/02/18 History tablet Pain sertraline 50 mg tablet 50 mg PO DAILY mental health 04/1405/02/18 History famotidine 10 mg tablet 10 mg PO BID reflux 02/18/2104/14 History semaglutide 0.25 mg or 0.5 mg (2 0.5 mg subcut TH diabetes 02/18/21 Unknown History mg/1.5 mL) subcutaneous pen injector (Ozempic) carbidopa ER 25 mg-levodopa 100 mg 1 tab PO QHS tremors 04/14/24 History tablet,extended release multivitamin with iron 1 tab PO DAILY multivitamin 04/14/24 History vit C 250 mg-vit E 90 mg-zinc 40 1 tab PO BID vitamin 04/14/2410/30 History mg-copper 1 lf-pgclef-hkesqh capsule (PreserVision AREDS-2) furosemide 20 mg tablet 20 mg PO DAILY diuretic #30 tabs 0 04/17/24 04/14/24 Rx metoprolol tartrate 25 mg tablet 12.5 mg (1/2 x 25 mg) PO BID htn 0 04/17/24 Unknown Rx 30 days #30 tabs amlodipine 5 mg tablet 5 mg PO QDAY 05/01/24 Unknown Hist ory clopidogrel 75 mg tablet 75 mg PO DAILY antiplatelet Unknown History insulin aspart U-100 100 unit/mL 8 unit subcut QPM diabetes 5 Unknown History (3 mL) subcutaneous pen (Novolog FlexPen U-100 Insulin aspart) insulin glargine 100 unit/mL (3 30 unit subcut DAILY diabetes 09/06 11/30 Unknown History mL) subcutaneous pen (Lantus Solostar U-100 Insulin) losartan 25 mg tablet 12.5 mg PO DAILY htn 09/23/24 Unkn own History potassium chloride 10 mEq 10 meq PO DAILY supplement 5 Unknown History tablet,extended release (Klor-Con) tamsulosin 0.4 mg capsule (Flomax) 0.8 mg PO QHS bladder 09/23/24 U nknown History trospium 20 mg tablet 20 mg PO BID antispasmodic 5 Unknown History Allergy/AdvReac Type Severity Reaction Status Date / Time Anesthetics - Amide Type - Allergy Other Verified 09/23/24 13:16 Select A Anesthetics - Rivka Type- Allergy Other Verified 09/23/24 13:16 Parabens albuterol AdvReac Mild thrush Verified 09/23/24 13:16 Family History Father CAD (coronary artery disease) Myocardial infarction Diabetes Heart disease Hypertension Brother Hypertension Diabetes Mother No problems noted. Surgical History S/P thyroidectomy S/P arthroscopic knee surgery S/P hemorrhoidectomy Hx of elbow surgery S/P CABG x 4 S/P coronary artery stent placement Hx of mitral valve repair Social History household members: spouse Smoking Status: Former smoker quit date: 09/26/73 pack-years: 5 how long ago did patient quit smoking: Additional chew tobacco use history, quit 01/15/2007. alcohol intake: never substance use type: does not use Vital Signs Vital Signs Vital Signs: 09/23/24 13:13 09/23/24 16:13 09/23/24 18:00 Temperature 98.3 F 98.6 F Temperature Source Oral Oral Pulse Rate (more content not included)...[facility]06-19-2025 Radiology Diagnostic study note [facility] Imaging Services [address] [place] [address] [id number] Abd Decub and/or Erect(Portabl MR#: [id number] Acct: [id number] Name: KIMBERLY NAVA Rep #: [id number] : 1945 M 79 From: Herson Manuel MD PCP: Dr. Kobi Adair MD Status: ADM CHINTAN Study:Abd Decub and/or Erect(Portabl Date of Exam: 09/24/24 Exam# [id number] Ordering Dr: Ana Conteh MD PROCEDURE: ABD DECUB AND/OR ERECT(PORTABL 09/24/2024 REASON FOR EXAM: KIDNEY STONE TECHNIQUE: ABD DECUB AND/OR ERECT(PORTABL COMPARISON: September 23, 2024 CT FINDINGS: Bowel gas: Nonobstructive bowel gas pattern Calcifications: There is a 9 mm stone overlying the left SI joint which corresponds with the left ureteral stone seen on the recent CT in this region. Bones: There is no acute bony abnormality. Dextroscoliosis of the lumbar spine is noted. Other: Phleboliths are noted in the pelvis. Vascular calcifications are visible. RAD/Abd Decub and/or Erect(Portabl IMPRESSION: There is a 9 mm ureteral stone overlying the left SI joint which corresponds with the left ureteralstone seen on the recent CT in this region. Reading Location: [facility] CC: Dr. Kobi Adair MD; Dr. Cory Conteh MD ~ Psychopaedic Nurse: Signed [facility]06-19-2025 Discharge summary Author Marco Antonio Vazquez [facility] Note Date/Time September 23, 2024 11:5 7pm [facility] Medical Records Department [address] [place] [id number] Emergency Department Summary 09/23/24 MR#: [id number] Acct: [id number] Name: KIMBERLY NAVA Rep #:[id number] : 1945 79 From: Marco Antonio Gil PCP: Dr. Kobi Adair MD Status :ADM HCINTAN Location[place] [facility] [place] [id number] HPI HPI - GI History of Present Illness Chief Complaint: Abd Pain Informant: patient and spouse/S.O. Narrative Narrative: 79-year-old male presenting to the emergency room with a chief complaint of abdominal pain. Patient states he had a normal bowel movement yesterday morning. He states that he developed intermittent sharp pains in the left side of his abdomen yesterday after his bowel movement. He states he feels somewhat bound today. Denies urinary symptoms. He states he vomited in the bathroom after arriving here in the emergency. He denies any fever. No prior abdominal surgeries. He states he had colonoscopy which was normal. He states that he does not a history of diverticulitis or kidney stones. [facility] Medical History Former tobacco use History of [...] CHF (congestive heart failure) Hyperlipidemia Home Medications ?Medication ?Instructions ?Recorded ?Last Taken ?Type aspirin 81 mg chewable tablet 81 mg PO DAILY heart hea lth 03/10/13 04/14/24 History atorvastatin 40 mg tablet 40 mg PO QHS cholesterol 06/1804/13/24 History isosorbide mononitrate 30 mg 30 mg PO DAILY heart 06/1804/14/24 History tablet,extended release 24 hr levothyroxine 200 mcg tablet 200 mcg PO DAILY thyroid 03/10/13 04/14/24 History (Levoxyl) nitroglycerin 0.4 mg sublingual 0.4 mg sublingual Q5M PRN Chest 03/10/13 05/02/18 History tablet Pain sertraline 50 mg tablet 50 mg PO DAILY mental health 04/14/15 05/02/18 History famotidine 10 mg tablet 10 mg PO BID reflux 02/18/21 04/14/24 History semaglutide 0.25 mg or 0.5 mg (2 0.5 mg subcut TH diab etes 02/18/21 Unknown History mg/1.5 mL) subcutaneous pen injector (Ozempic) carbidopa ER 25 mg-levodopa 100 mg 1 tab PO QHS 04/13/24 History tablet,extended release multivitamin with iron 1 tab PO DAILY 04/14/2410/30 History vit C 250 mg-vit E 90 mg-zinc 40 1 tab PO BID 04/14/24 04/14/24 History mg-copper 1 uu-gofold-xzfvvf capsule (PreserVision AREDS-2) enoxaparin 40 mg/0.4 mL 40 mg (0.4 mL) subcut DAILY 30 04/17/24 Unknown Rx subcutaneous syringe days #12 mL furosemide 20 mg tablet 20 mg PO DAILY diuretic #30 tabs 04/17/24 04/14/24 Rx insulin glargine 100 unit/mL (3 40 unit (0.4 mL) subcu t DAILY #30 04/17/24 04/14/24 Rx mL) subcutaneous pen (Lantus mL Solostar U-100 Insulin) metoprolol tartrate 25 mg tablet 12.5 mg (1/2 x 25 mg) PO BID 30 04/17/24 Unknown Rx days #30 tabs amlodipine 5 mg tablet 5 mg PO QDAY 05/01/24 Unknow n History oxybutynin chloride 10 mg 10 mg PO QDAY 05/01/24 Unkno wn History tablet,extended release 24 hr Allergy/AdvReac Type Severity Reaction Status Date / Time Anesthetics - Amide Type - Allergy Other Verified 09/23/24 13:16 Select A Anesthetics - Rivka Type- Allergy Other Verified 09/23/24 13:16 Parabens albuterol AdvReac Mild thrush Verified 09/23/24 13:16 Family History Father CAD (coronary artery disease) Myocardial infarction Diabetes Heart disease Hypertension Brother Hypertension Diabetes Mother No problems noted. Surgical History S/P thyroidectomy S/P arthroscopic knee surgery S/P hemorrhoidectomy Hx of elbow surgery S/P CABG x 4 S/P coronary artery stent placement Hx of mitral valve repair Social History household members: spouse Smoking Status: Former smoker quit date: 09/26/73 pack-years: 5 how long ago did patient quit smoking: Additional chew tobacco use history, quit 01/15/2007. alcohol intake: never substance use type: does not use ROS ROS ED Constitutional Constitutional ED: Denies chills, fever(s) or weight loss Eyes Eyes: Denies change in vision or diplopia ENT ENT ED: Denies ear pain, rhinorrhea or sore throat Cardiovascular Cardiovascular: Denies chest pain, orthopnea, palpitations or racing heartbeat Respiratory/Chest Respiratory/Chest: Denies cough, dyspnea or orthopnea Gastrointestinal Gastrointestinal: Reports abdominal pain and nausea; Denies diarrhea or vomiting Genitourinary Genitourinary ED: Denies dysuria, hematuria or urinary frequency Musculoskeletal Musculoskeletal: Denies arthralgias, back pain or myalgias Integumentary Denies abscess or rash Neurologic Neurologic: Denies headache(s) or weakness Psychiatric Psychiatric: Denies anxiety, depression, suicidal ideation or suicidal thoughts Endocrine Endocrinology: Denies polydipsia, polyphagia or polyuria Allergic/Immunologic Allergic/Immunologic ED: Denies mouth swelling, tongue swelling or urticaria EXAM Physical Exam Const Vital Signs: 09/23/24 13:13 09/23/24 16:13 09/23/24 18:00 Temperature 98.3 F 98.6 F Temperature Source Oral Oral Pulse Rate 88 78 89 Respiratory Rate 16 16 18 Blood Pressure 149/98 H 141/64 H 132/78 H Blood Pressure Mean 115 89 96 Pulse Ox 98 98 99 Oxygen Delivery Method Room Air Room Air Room Air Positive well nourished and well developed General Appearance ED: well developed HEENT Reports normocephalic, head/scalp atraumatic and moist mucous membranes Eyes PERRL and EOMs intact bilaterally Neck no lymphadenopathy, supple and no JVD Resp normal respiratory effort and clear to auscultation bilaterally Cardio regular rate, regular rhythm and no murmurs GI Inspection: Negative for abdominal distention Auscultation: normoactive bowel sounds Palpation: soft and tender LLQ and LUQ; Negative for guarding or rebound tenderness present Back/Spine no CVA tenderness and normal ROM Extremity normal to inspection General Extremety ED: Negative for edema General Extremity: Negative for edema Neuro oriented x3 and CN's II-XII intact bilaterally Sensorium / Orientation: alert Motor Exam: strength 5/5 throughout Psych mental status grossly normal Mood & Affect: Negative for depressed or tearful Skin no rashes or lesions noted and no wounds MDM MDM MDM Narrative Medical decision making narrative: Differential diagnosis includes but not limited to diverticulitis colitis ureterolithiasis UTI acute kidney injury Patient's white count returns at 7.0 hemoglobin 16.2 platelet count of 150. Creatinine is 2.08 with a BUN of 34. Lipase [address] of the abdomen pelvis demonstrates a distal to mid ureteral stone measuring 6 to 8 mm with hydronephrosis and hydroureter. Patient was not able to produce a urine specimen for significant amount of time. Urinalysis demonstrates no overt infection. Patient and his were updated with the findings. I spoke with Dr. Conteh from urology. Plan is admission into the hospital and plan for surgery. Patient and his are comfortable with this plan. History & Record Review Discussion w/independent historian: Patient and Significant other Additional record(s) reviewed:: Prior ED visit and Prior labs Lab Data Attestation: I reviewed the patient's lab results. Labs: Laboratory Results - last 24 hr 09/23/24 09/23/24 14:09 19:19 WBC 7.0 RBC 5.20 Hgb 16.2 Hct 48.6 MCV 93.5 MCH 31.2 MCHC 33.3 RDW Std Deviation 45.6 H RDW Coeff of Luther 13.4 Plt Count 150 MPV 10.5 Immature Gran % (Auto) 0.300 Neut % (Auto) 72.2 H Lymph % (Auto) 15.4 L Eaton % (Auto) 9.1 Eos % (Auto) 2.4 Baso % (Auto) 0.6 Absolute Neuts (auto) 5.0 Absolute Lymphs (auto) 1.07 Nucleated RBC % 0 Sodium 138 Potassium 4.4 Chloride 101 Carbon Dioxide 23.1 Anion Gap 15 BUN 34 H Creatinine 2.08 H Estim Creat Clear Calc 33.03 L Est GFR (MDRD) Non-Af 32 L BUN/Creatinine Ratio 16.3 Glucose 210 H Calcium 9.2 Total Bilirubin 1.07 AST 23 ALT 13 Alkaline Phosphatase 124 Total Protein 7.0 Albumin 4.3 Globulin 2.7 Albumin/Globulin Ratio 1.6 Lipase 44 Urine Color Yellow Urine Clarity Clear Urine pH 7.0 Ur Specific Gamaliel 1.010 Urine Protein 30 H Urine Glucose (UA) 1000 H Urine Ketones Negative Urine Occult Blood 10 H Urine Nitrite Negative Urine Bilirubin Negative Urine Urobilinogen Normal Ur Leukocyte Esterase Negative Radiography Diagnostic Testing: Clinical Impression(s) from Imaging Studies Abdomen/Pelvis CT 09/23/24 17:04 IMPRESSION: Left distal ureter 6 mm calculus with qgovosdy-[id number]-[id number] upstream hydroureteronephrosis. Severe prostatomegaly. Reading Location: [place] [address] Management Discussion w/another healthcare provider: D[facility] (Dr. Conteh) Discharge Plan Triage Chief Complaint: Abd Pain ED Provider: Marco Antonio Vazquez Dx/Rx/DC Orders Prescriptions: No Action amlodipine 5 mg tablet 5 mg PO QDAY oxybutynin chloride 10 mg tablet extended release 24hr 10 mg PO QDAY atorvastatin 40 MG tablet 40 mg PO QHS Patient Comments: cholesterol isosorbide mononitrate 30 MG tablet 30 mg PO DAILY Patient Comments: BLOOD PRESSURE nitroglycerin 0.4 MG tablet 0.4 mg sublingual Q5M PRN (Reason: Chest Pain) Patient Comments: chest pain aspirin 81 MG tablet,chewable 81 mg PO DAILY Patient Comments: heart health levothyroxine [Levoxyl] 200 MCG tablet 200 mcg PO DAILY Patient Comments: thyroid sertraline 50 MG tablet 50 mg PO DAILY Ozempic 0.25 mg or 0.5 mg(2 mg/1.5 mL) Pen Injector 0.5 mg SUBCUT TH famotidine 10 mg Tablet 10 mg PO BID carbidopa-levodopa 25-100 mg tablet extended release 1 tab PO QHS multivitamin with iron Tablet 1 tab PO DAILY PreserVision AREDS-2 250-90-40-1 mg capsule 1 tab PO BID enoxaparin 40 mg/0.4 mL Syringe 40 mg subcut DAILY 30 Days Qty: 12 0RF metoprolol tartrate 25 mg Tablet 12.5 mg PO BID 30 Days Qty: 30 0RF furosemide 20 mg tablet 20 mg PO DAILY Qty: 30 0RF insulin glargine [Lantus Solostar U-100 Insulin] 100 unit/mL (3 mL) insulin pen 40 unit subcut DAILY Qty: 30 0RF Primary Care Provider: Kobi Adair Referrals: Kobi Adair MD [Primary Care Provider] - Print Language: Niuean What to do if you have Problems For any increased pain, shortness of breath, bleeding, nausea or vomiting, chestpain, or any unexpected problems, contact your Primary Care Provider. Call [facility] ([phone]) or report to the closest Emergency Room. Call 911 if necessary. 09/23/24 9614 <Electronically signed by Marco Antonio Vazquez DO> Cosigner Signature (if applicable): CC: Dr. Kobi Adair MD ~ Signed [facility] Work Phone: 1(798) 232-341106-19-2025 Evaluation note* Diagnosis Onset Date Resolution Status Admit Date Inability to walk acute September 232024 10:00pm Intractable pain acute September 10:00pm Ureteral calculus acute September 232024 10:00pm Chronic kidney disease (CKD) chronic September 23, 2024 10:00pm [facility] Work Phone: 1(390) 843-201606-18-2025 Discharge summary [facility] Medical Records Department [address] [place] [address] Emergency Department Summary 09/23/24 MR#: [id number] Acct: [id number] Name: KIMBERLY NAVA Rep #:[id number] : 1945 79 From: Marco Antonio Gil PCP: Dr. Kobi Adair MD Status :ADM CHINTAN Location: [facility] [id number] HPI HPI - GI History of Present Illness Chief Complaint: Abd Pain Informant: patient and spouse/S.O. Narrative Narrative: 79-year-old male presenting to the emergency room with a chief complaint of abdominal pain. Patientstates he had a normal bowel movement yesterday morning. He states that he developed intermittent sharp pains in the left side of his abdomen yesterday after his bowel movement. He states he feels somewhat bound today. Denies urinary symptoms. He states he vomited in the bathroom after arriving here in the emergency. He denies any fever. No prior abdominal surgeries. He states he had colonoscopy which was normal. He states that he does not a history of diverticulitis or kidney stones. [facility] Medical History Former tobacco use History of [...] CHF (congestive heart failure) Hyperlipidemia Home Medications ?Medication ?Instructions ?Recorded ?Last Taken ?Type aspirin 81 mg chewable tablet 81 mg PO DAILY heart hea lth 03/10/13 04/14/24 History atorvastatin 40 mg tablet 40 mg PO QHS cholesterol 06/1804/13/24 History isosorbide mononitrate 30 mg 30 mg PO DAILY heart 06/1804/14/24 History tablet,extended release 24 hr levothyroxine 200 mcg tablet 200 mcg PO DAILY thyroid 03/10/13 04/14/24 History (Levoxyl) nitroglycerin 0.4 mg sublingual 0.4 mg sublingual Q5M PRN Chest 03/10/13 05/02/18 History tablet Pain sertraline 50 mg tablet 50 mg PO DAILY mental health 04/14/15 05/02/18 History famotidine 10 mg tablet 10 mg PO BID reflux 02/18/21 04/14/24 History semaglutide 0.25 mg or 0.5 mg (2 0.5 mg subcut TH diab etes 02/18/21 Unknown History mg/1.5 mL) subcutaneous pen injector (Ozempic) carbidopa ER 25 mg-levodopa 100 mg 1 tab PO QHS 04/13/24 History tablet,extended release multivitamin with iron 1 tab PO DAILY 04/14/2410/30 History vit C 250 mg-vit E 90 mg-zinc 40 1 tab PO BID 04/14/24 04/14/24 History mg-copper 1 gk-bmnpil-giiahy capsule (PreserVision AREDS-2) enoxaparin 40 mg/0.4 mL 40 mg (0.4 mL) subcut DAILY 30 04/17/24 Unknown Rx subcutaneous syringe days #12 mL furosemide 20 mg tablet 20 mg PO DAILY diuretic #30 tabs 04/17/24 04/14/24 Rx insulin glargine 100 unit/mL (3 40 unit (0.4 mL) subcu t DAILY #30 04/17/24 04/14/24 Rx mL) subcutaneous pen (Lantus mL Solostar U-100 Insulin) metoprolol tartrate 25 mg tablet 12.5 mg (1/2 x 25 mg) PO BID 30 04/17/24 Unknown Rx days #30 tabs amlodipine 5 mg tablet 5 mg PO QDAY 05/01/24 Unknow n History oxybutynin chloride 10 mg 10 mg PO QDAY 05/01/24 Unkno wn History tablet,extended release 24 hr Allergy/AdvReac Type Severity Reaction Status Date / Time Anesthetics - Amide Type - Allergy Other Verified 09/23/24 13:16 Select A Anesthetics - Rivka Type- Allergy Other Verified 09/23/24 13:16 Parabens albuterol AdvReac Mild thrush Verified 09/23/24 13:16 Family History Father CAD (coronary artery disease) Myocardial infarction Diabetes Heart disease Hypertension Brother Hypertension Diabetes Mother No problems noted. Surgical History S/P thyroidectomy S/P arthroscopic knee surgery S/P hemorrhoidectomy Hx of elbow surgery S/P CABG x 4 S/P coronary artery stent placement Hx of mitral valve repair Social History household members: spouse Smoking Status: Former smoker quit date: 09/26/73 pack-years: 5 how long ago did patient quit smoking: Additional chew tobacco use history, quit 01/15/2007. alcohol intake: never substance use type: does not use ROS ROS ED Constitutional Constitutional ED: Denies chills, fever(s) or weight loss Eyes Eyes: Denies change in vision or diplopia ENT ENT ED: Denies ear pain, rhinorrhea or sore throat Cardiovascular Cardiovascular: Denies chest pain, orthopnea, palpitations or racing heartbeat Respiratory/Chest Respiratory/Chest: Denies cough, dyspnea or orthopnea Gastrointestinal Gastrointestinal: Reports abdominal pain and nausea; Denies diarrhea or vomiting Genitourinary Genitourinary ED: Denies dysuria, hematuria or urinary frequency Musculoskeletal Musculoskeletal: Denies arthralgias, back pain or myalgias Integumentary Denies abscess or rash Neurologic Neurologic: Denies headache(s) or weakness Psychiatric Psychiatric: Denies anxiety, depression, suicidal ideation or suicidal thoughts Endocrine Endocrinology: Denies polydipsia, polyphagia or polyuria Allergic/Immunologic Allergic/Immunologic ED: Denies mouth swelling, tongue swelling or urticaria EXAM Physical Exam Const Vital Signs: 09/23/24 13:13 09/23/24 16:13 09/23/24 18:00 Temperature 98.3 F 98.6 F Temperature Source Oral Oral Pulse Rate 88 78 89 Respiratory Rate 16 16 18 Blood Pressure 149/98 H 141/64 H 132/78 H Blood Pressure Mean 115 89 96 Pulse Ox 98 98 99 Oxygen Delivery Method Room Air Room Air Room Air Positive well nourished and well developed General Appearance ED: well developed HEENT Reports normocephalic, head/scalp atraumatic and moist mucous membranes Eyes PERRL and EOMs intact bilaterally Neck no lymphadenopathy, supple and no JVD Resp normal respiratory effort and clear to auscultation bilaterally Cardio regular rate, regular rhythm and no murmurs GI Inspection: Negative for abdominal distention Auscultation: normoactive bowel sounds Palpation: soft and tender LLQ and LUQ; Negative for guarding or rebound tenderness present Back/Spine no CVA tenderness and normal ROM Extremity normal to inspection General Extremety ED: Negative for edema General Extremity: Negative for edema Neuro oriented x3 and CN's II-XII intact bilaterally Sensorium / Orientation: alert Motor Exam: strength 5/5 throughout Psych mental status grossly normal Mood & Affect: Negative for depressed or tearful Skin no rashes or lesions noted and no wounds MDM MDM MDM Narrative Medical decision making narrative: Differential diagnosis includes but not limited to diverticulitis colitis ureterolithiasis UTI acute kidney injury Patient's white count returns at 7.0 hemoglobin 16.2 platelet count of 150. Creatinine is 2.08 witha BUN of 34. Lipase [address] of the abdomen pelvis demonstrates a distal to mid ureteral stone measuring 6 to 8 mm with hydronephrosis and hydroureter. Patient was not able to produce a urine specimen for significant amount of time. Urinalysis demonstrates no overt infection. Patient and his were updated with the findings. I spoke with Dr. Conteh from urology. Plan is admission into the hospital and plan for surgery. Patient and his are comfortable with this plan. History & Record Review Discussion w/independent historian: Patient and Significant other Additional record(s) reviewed:: Prior ED visit and Prior labs Lab Data Attestation: I reviewed the patient's lab results. Labs: Laboratory Results - last 24 hr 09/23/24 09/23/24 14:09 19:19 WBC 7.0 RBC 5.20 Hgb 16.2 Hct 48.6 MCV 93.5 MCH 31.2 MCHC 33.3 RDW Std Deviation 45.6 H RDW Coeff of Luther 13.4 Plt Count 150 MPV 10.5 Immature Gran % (Auto) 0.300 Neut % (Auto) 72.2 H Lymph % (Auto) 15.4 L Eaton % (Auto) 9.1 Eos % (Auto) 2.4 Baso % (Auto) 0.6 Absolute Neuts (auto) 5.0 Absolute Lymphs (auto) 1.07 Nucleated RBC % 0 Sodium 138 Potassium 4.4 Chloride 101 Carbon Dioxide 23.1 Anion Gap 15 BUN 34 H Creatinine 2.08 H Estim Creat Clear Calc 33.03 L Est GFR (MDRD) Non-Af 32 L BUN/Creatinine Ratio 16.3 Glucose 210 H Calcium 9.2 Total Bilirubin 1.07 AST 23 ALT 13 Alkaline Phosphatase 124 Total Protein 7.0 Albumin 4.3 Globulin 2.7 Albumin/Globulin Ratio 1.6 Lipase 44 Urine Color Yellow Urine Clarity Clear Urine pH 7.0 Ur Specific Gamaliel 1.010 Urine Protein 30 H Urine Glucose (UA) 1000 H Urine Ketones Negative Urine Occult Blood 10 H Urine Nitrite Negative Urine Bilirubin Negative Urine Urobilinogen Normal Ur Leukocyte Esterase Negative Radiography Diagnostic Testing: Clinical Impression(s) from Imaging Studies Abdomen/Pelvis CT 09/23/24 17:04 IMPRESSION: Left distal ureter 6 mm calculus with wgdadsul-fi-wwyiyj upstream hydroureteronephrosis. Severe prostatomegaly. Reading Location: [id number] Management Discussion w/another healthcare provider: D[facility] (Dr. Conteh) Discharge Plan Triage Chief Complaint: Abd Pain ED Provider: Marco Antonio Vazquez Dx/Rx/DC Orders Prescriptions: No Action amlodipine 5 mg tablet 5 mg PO QDAY oxybutynin chloride 10 mg tablet extended release 24hr 10 mg PO QDAY atorvastatin 40 MG tablet 40 mg PO QHS Patient Comments: cholesterol isosorbide mononitrate 30 MG tablet 30 mg PO DAILY Patient Comments: BLOOD PRESSURE nitroglycerin 0.4 MG tablet 0.4 mg sublingual Q5M PRN (Reason: Chest Pain) Patient Comments: chest pain aspirin 81 MG tablet,chewable 81 mg PO DAILY Patient Comments: heart health levothyroxine [Levoxyl] 200 MCG tablet 200 mcg PO DAILY Patient Comments: thyroid sertraline 50 MG tablet 50 mg PO DAILY Ozempic 0.25 mg or 0.5 mg(2 mg/1.5 mL) Pen Injector 0.5 mg SUBCUT TH famotidine 10 mg Tablet 10 mg PO BID carbidopa-levodopa 25-100 mg tablet extended release 1 tab PO QHS multivitamin with iron Tablet 1 tab PO DAILY PreserVision AREDS-2 250-90-40-1 mg capsule 1 tab PO BID enoxaparin 40 mg/0.4 mL Syringe 40 mg subcut DAILY 30 Days Qty: 12 0RF metoprolol tartrate 25 mg Tablet 12.5 mg PO BID 30 Days Qty: 30 0RF furosemide 20 mg tablet 20 mg PO DAILY Qty: 30 0RF insulin glargine [Lantus Solostar U-100 Insulin] 100 unit/mL (3 mL) insulin pen 40 unit subcut DAILY Qty: 30 0RF Primary Care Provider: Kobi Adair Referrals: Kobi Adair MD [Primary Care Provider] - Print Language: Niuean What to do if you have Problems For any increased pain, shortness of breath, bleeding, nausea or vomiting, chestpain, or any unexpected problems, contact your Primary Care Provider. Call [facility] ([phone]) or report tothe closest Emergency Room. Call 911 if necessary. 09/23/24 [id number] Cosigner Signature (if applicable): CC: Dr. Kobi Adair MD ~ Signed [facility]06-18-2025 Radiology Diagnostic study note [facility] Imaging Services [address], [place] [address] Abdomen/Pelvis without Cont MR#: [id number] Acct: [id number] Name: KIMBERLY NAVA Rep #: [id number] : 1945 M 79 From: Rudi Pretty MD PCP: Dr. Kobi Adair MD Status: REG ER Study:Abdomen/Pelvis without Cont Date of Exa m: 09/23/24 Exam# [id number] Ordering Dr: Laura Vazquez DO PROCEDURE: ABDOMEN/PELVIS [...] Left distal ureter 6 mm calculus with odzvptki-yw-tpeatu upstream hydroureteronephrosis Severely enlarged prostate. The urinary bladder is unremarkable. Normal caliber large and small bowel. CT/Abdomen/Pelvis without Cont IMPRESSION: Left distal ureter 6 mm calculus with ayhmhumt-wv-ppytjb upstream hydroureteronephrosis. Severe prostatomegaly. Reading Location: [id number] CC: Dr. Kobi Adair MD; Dr. Marco Antonio Vazquez DO ~ Psychopaedic Nurse: Signed [facility]01-10-2025 [facility] Medical Records Department [address] [place] [address] Discharge Summary 04/17/24 1629 MR#: [id number] Acct: [id number] Name: KIMBERLY NAVA Rep #: [id number] : 1945 79 From: Toshia Pro MD PCP: Dr. Kobi Adair MD Status:ADM IN Location: [facility] [place] [id number] Providers Date of Admission: 04/14/24 Date of [...] mg-vit E 90 mg-zinc 40 mg-copper 1 wi-exjvyt-iwwlwu capsule (PreserVision AREDS-2) 1 tab PO BID [...] CKD stage IIIb, diabetes, hypothyroidism, GERD presented [facility] ED on after a fall with [...] other new or acute complaints. Discharged to [facility] [place] [facility] in stable condition with the following [...] can be a sign (more content not included)...[facility]09-10-2024 Telephone encounter Note* Telephone Encounter - Alicja Galeas MA - 12/17/2023 11:39 AM EDT Pt notified. [facility] Advised him that the [facility] should be able towrite the placard. He said he was given one by the [facility] but [facility] would not accept as it was signed by POWER REGULATOR not . I instructed pt that he would need to call the [facility] and ask that the letter be signed by anMD. Pt voiced understanding. Alicja Galeas MA [facility]09-10-2024 Miscellaneous Notes* Telephone Encounter - Alicja Galeas MA - 12/17/2023 11:39 AM EDT Pt notified. [facility]. Advised him that the VA should be able towrite the placard. He said he was given one by the [facility] but [facility] would not accept as it was signed by POWER REGULATOR not MD. I instructed pt that he would need to call the [facility] and ask that the letter be signed by anMD. Pt voiced understanding. Alicja Galeas MA * Telephone Encounter - Nikia Adair MD - 12/17/2023 11:36 AM EDT We have not seen him since 2021 and his chart no longer has me listed as his PCP. If we are still managing his care, he will need OV for this and to follow up on his diabetes and other chronic medical conditions. * Telephone Encounter - Brandi Tracey LPN - 12/17/2023 11:15 AM EDT Per Kimberly, it is time to renew Handicapped Placard, asking for PCP (Dr. Adair) to write letter. Patient does not go through [facility] for Handicapped Placard letter, please call when ready for pickup. Brandi Tracey LPN documented in this encounterOhiohealth [facility]09-10-2024 Telephone encounter Note * Telephone Encounter - Nikia Adair MD - 12/17/2023 11:36 AM EDT We have not seen him since 2021 and his chart no longer has me listed as his PCP. If we are still managing his care, he will need OV for this and to follow up on his diabetes and other chronic medical conditions. [facility]09-10-2024 Telephone encounter Note* Telephone Encounter - Brandi Tracey LPN - 12/17/2023 11:15 AM EDT Per Kimberly, it is time to renew Handicapped Placard, asking for PCP (Dr. Adair) to write letter. Patient does not go through [facility] for Handicapped Placard letter, please call when ready for pickup. Brandi Tracey LPN [facility]07-22-2024 NoteHNO ID: [id number] Author: SRIRAM VALLES MD Service: ? Author Type: Physician Type: Progress Notes Filed: 10/28/2023 10:10 Note Text: Sriram Valles MD Interventional Cardiology [address] [place] [address] [phone] Chief Complaint Patient presents with: Follow Up [...] Depression Diabetes (HCC) DVT (deep venous thrombosis) ([facility]) 2008 Esophageal reflux Generalized osteoarthrosis, unspecified site Hemorrhage of gastrointestinal tract, unspecified History of tobacco use Hypothyroidism Nonspecific (abnormal) findings on radiological and other examination of genitourinary organs 11/18/2007 He has R pelvic Kidney - congenital Obesity (BMI 30-39.9) Obstructive sleep apnea Bipap, seeing [facility] bypass and valve repair- DVT [...] WHEN PFRMD 04-12-15 HEMORRHOIDECTOMY INT AND XTRNL 2/ COLUMN/JUANY 04-20-15 Dr. Mc KNEE ARTHROSCOP MENISCUS [...] of Onset None Mother 98 Heart Father [place] A[place] 67 Diabetes Father Hypertension Brother Diabetes [...] of 25 6 Mag (more content not included)...[facility]07-22-2024 History of Present illness Narrative* Sriram Valles MD - 10/28/2023 10:05 AM EDT Images from the original note were not included. Sriram Valles MD Interventional Cardiology [address] [place] [id number] [phone] Chief Complaint Patient presents with: Follow Up [...] over 55), hyperlipidemia, obesity, diabetes, hypertension, family historyof CAD PAST MEDICAL HISTORY Diagnosis Date Acute, [...] (BMI 30-39.9) Obstructive sleep apnea Bipap, seeing [facility]. bypass and valve repair- DVT [...] of Onset None Mother 98 Heart Father [place] AGE 67 Diabetes Father Hypertension Brother Diabetes [...] pen injector Inject 1 mg weekly every Thrusday1 Each 5 levothyroxine (SYNTHROID) 25 mcg tablet Take 1 tablet by mouth once daily. Take on empty stomach. For thyroid. 30 tablet 2 metoprolol tartrate, short acting, (LOPRESSOR) 50 mg tablet Take 2 tablets in AM and 1.5 tablets inthe evening 90 tablet 1 atorvastatin (LIPITOR) 80 [...] Dissolve 1 tablet under the tongue as needed.FOR CHEST PAIN. IF NO RELIEF CALL 911 [...] Please fax 30 day compliance download to [phone]. Dx: ANABELL, treatment emergent CSA 1 Device 0 sertraline (ZOLOFT) 50 mg tablet Take 1 tablet by mouth once daily. 90 tablet 2 carbidopa-levodopa (SINEMET) 25-100 mg per tablet Take 1 tablet by mouth at bedtime as needed. ID #[id number] 90 tablet 3 aspirin(ECOTRIN LOW STRENGTH 81 [...] repair ASSESSMENT/PLAN: 1. 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 documented in this encounterOhiohealth [facility]04-03-2023 History of Present illness Narrative* Cahtryn Wolfe RN - 07/09/2022 10:40 AM EDT RADIOLOGY SERVICE PROGRESS NOTE SERVICE DATE: 07/09/2022 SERVICE TIME: 0845 PATIENT IDENTITY VERIFICATION COMPLETED USING TWO (2) METHODS: Patient confirmed name and Date of verbally. ALLERGIES REVIEWED: DM MEDICATIONS REVIEWED BY: DM PROCEDURE TYPE: NM STRESS: 0.4 mg of Lexiscan was administered IV at 0917 over 10 Seconds by Cathryn Wolfe RN Reversal agent used:N/A LOT [id number] EXP 12/07/2025 IV SITE: IV palced by nuclear tecnologist POST EXAM PIV STATUS: Discontinued by Computing Systems Mechanic PATIENT DISCHARGED TO: Nuclear Medicine Department for post stress imaging A Diagnostic radioactive procedure has taken place, with no further precautions necessary other than routine body substance precautions. More information regarding radiation safety can be found usingthis link: [email or web address]%[email or web address]%20Medicine%[email or web address] SIGNATURE: Cathryn Wolfe RN PATIENT NAME:Kimberly Nava DATE: 07/09/22 TIME: 10:40 AM documented in this encounterOhiohealth Arthur G.[facility]04-03-2023 History of Present illness Narrative* Vikash Mena, RT(R) - 07/09/2022 7:30 AM EDT RADIOLOGY SERVICE PROGRESS NOTE SERVICE DATE: 07/09/2022 [...] creatinine assay has traceable calibration to isotope dilution- mass spectrometry. Refer to KDIGO guidelines for clinical interpretation. In patients with unstable renal function, e.g. those with acute kidney injury, the eGFRmay not accurately reflect actual GFR. eGFR- Date Value Ref Range Status 03/10/2021 51 Final P.O.C.T. RESULTS: N/A July 09, [address] PERFORMED: No IV SITE: Ambulatory: A peripheral IV was started in the Right wrist with a Angio cath: 22 gauge. POST EXAM PIV STATUS: Discontinued PROCEDURE TYPE: NM Stress: 15.3 mCi [id number] was administered IV for Rest Imaging at 0745 by JOHN. 44.8 mCi [id number] was administered IV for Stress Imaging at 0906 by JOHN. PATIENT DISCHARGED TO: Ambulatory patient, left [place] department area. A Diagnostic radioactive procedure has taken place, with no further precautions necessary other than routine body substance precautions. More information regarding radiation safety can be found usingthis link: [email or web address]%20Nuclear%20Medicine%[email or web address] SIGNATURE: RT Elliott(Anand) PATIENT NAME: Kimberly Nava DATE: July 09, 2022 TIME: 7:52 AM PAGER/CONTACT #: documented in this encounterOhiohealth Arthur G.[facility]. [facility]02-06-2023 History of Present illness Narrative* Sriram Valles MD - 05/14/2022 10:07 AM EST Images from the original note were not included. Sriram Valles MD Interventional Cardiology [address] [address] [phone] Chief Complaint Patient presents with: Established Patient [...] a heart rate of 93 bpm his WA interval is 186 ms with Q waves [...] Depression Diabetes (HCC) DVT (deep venous thrombosis) ([facility]) 2007 Esophageal reflux Generalized osteoarthrosis, unspecified site Hemorrhage of gastrointestinal tract, unspecified History of tobacco use Hypothyroidism Nonspecific (abnormal) findings on radiological and other examination of genitourinary organs 11/18/2007 He has R pelvic Kidney - congenital Obesity (BMI 30-39.9) Obstructive sleep apnea Bipap, seeing [facility] bypass and valve repair- DVT [...] elbow x2 THYROID RIGHT FINE NEEDLE ASPIRATION 9/11/08 U/S FNA right thyroid lobe THYROIDECTOMY TOTAL/COMPLETE 03-02-08 FAMILY HISTORY Problem Relation Age of Onset None Mother 98 Heart Father [place]GE 67 Diabetes Father Hypertension Brother Diabetes [...] pen injector Inject 1 mg weekly every Thrusday1 Each 5 levothyroxine (SYNTHROID) 25 mcg tablet Take 1 tablet by mouth once daily. Take on empty stomach. For thyroid. 30 tablet 2 metoprolol tartrate, short acting, (LOPRESSOR) 50 mg tablet Take 2 tablets in AM and 1.5 tablets inthe evening 90 tablet 1 atorvastatin (LIPITOR) 80 [...] Dissolve 1 tablet under the tongue as needed.FOR CHEST PAIN. IF NO RELIEF CALL 911 [...] Please fax 30 day compliance download to [phone]. Dx: ANABELL, treatment emergent CSA 1 Device 0 sertraline (ZOLOFT) 50 mg tablet Take 1 tablet by mouth once daily. 90 tablet 2 carbidopa-levodopa (SINEMET) 25-100 mg per tablet Take 1 tablet by mouth at bedtime as needed. ID #[id number] 90 tablet 3 aspirin(ECOTRIN LOW STRENGTH 81 MG TAB) Take one(1) tablet daily. 0 0 Miscellaneous Medical Supply Patient needs oxygen 2.5L bled into CPAP (Patient not taking: Reportedon 05/14/2022) 1 Each 0 Current Facility-Administered Medications [...] to correct any errors. documented in this encounterOhiohealth Arthur G.[facility]. [facility]12-28-2022 History of Present illness Narrative* Claudia Henriquez MA - 04/04/2022 9:14 AM EST Images from the original note were not included. POPULATION HEALTH NAVIGATION OUTREACH Action/ANAHY Eldridge sent [employer] message: Enedina Henriquez MA I most recently was granted 100% disability by the 's admin. therefore I will be utilizing them for my primary care. I will use them for Annual Wellness Visit in the future. Any questions giveme a call [phone], Thank you. [employer] message sent ANNUAL MEDICARE WELLNESS EXAM ADVANCE DIRECTIVE DISCUSSION Never done DILATED RETINAL EXAM due on 06/08/2021 URINE ALBUMIN:CREATININE RATIO due on 11/09/2021 INFLUENZA(1) due on 12/07/2021 HBA1C due on 03/10/2022 Pt identified by name and : NO Outreach Outcome/Action Unable to reach patient: Left message MyChart message sent PCP field updated Did you [...] 04, 2022 9:14 AM documented in this encounterOhiohealth Arthur G.[facility]. [facility]10-24-2022 History of Present illness Narrative* Nick Wall - 01/29/2022 10:06 AM EDT Last saw Carolina Podlogar 09/08/21 Subjective: Patient presents to clinic c/o painful toenails. They state that the nails are especially painful with shoe gear and pressure. Patient states that nails right hallux medial nail border ispainful. Patient admits to being diabetic. No other [...] toes when tested with the 5.07 SWM bilateral.Vibratory sensation is decreased at the hallux IPJ [...] diabetic foot care along with proper diet andkeeping their blood sugar under control to prevent complications. Patient is to RTC in 3-4 months. Nick Wall DPM * Cristy Naidu LPN - 01/29/2022 9:23 AM EDT AMB ROOMING INTAKE FLOWSHEET DATA Risk Screening Do you have concerns about personal safety or safety in the home?: No Patient presents with: Left Foot - Established Patient, Follow Up, Diabetic Foot Care Right Foot - Established Patient, Follow Up, Ingrown Toenail, Diabetic Foot Care Cristy Naidu LPN documented in this encounterOhiohealth Arthur G.[facility]. [facility] Center10-24-2022 Instructions* Patient Instructions* Nick Wall - 01/29/2022 9:59 AM EDT [...] it. Apply a bandage and wear a differentpair of shoes. Take Care of Your Toenails Cut toenails after bathing, when they are soft. Cut toenails straight across and smooth with a nail file. Avoid cutting into the corners of toes. Do not cut cuticles. If you have neuropathy (or decreased sensation in your feet) a senior net c developer should always cut your toenails. Be Careful [...] make sure there are no foreign objects orrough areas. Avoid tight socks. Wear natural-fiber socks [...] to your health care provider or senior net c developer to treat these conditions. documented in this encounterOhiohealth Arthur G.[facility]. [facility] Center08-03-2022 Miscellaneous Notes* Telephone Encounter - Anh Morgan - 11/08/2021 8:33 AM EDT Called PT LVM letting him know that CT order is in there but the schedules have not been released yet for scheduling. * Telephone Encounter - Funmi Park LPN - 11/08/2021 8:15 AM EDT Patient would be happy to get it scheduled now. Is it possible to schedule that far out at this time? Funmi Park LPN * Telephone Encounter - Carolina Rice APRN.CNP - 11/08/2021 7:56 AM EDT Order for CT placed. Please assist in scheduling- is not due until May of 2023 so I am not sure they can schedule that far out. Carolina Rice APRN.KEN * Telephone Encounter - Anh Morgan - 11/07/2021 4:15 PM EDT Please put in order for the CT and place it as future. * Telephone Encounter - Funmi Park LPN - 11/07/2021 3:33 PM EDT Patient notified of results, verbalizes understanding of instructions. Can we assist with scheduling. Funmi Park LPN * Telephone Encounter - Carolina Rice APRN.CNP - 11/07/2021 3:09 PM EDT Please call patient and let him know his lung nodule is stable. Follow-up CT in 18 months. Thanks, Carolina Rice APRN.KEN documented in this encounterOhiohealth Arthur G.[facility]. [facility]08-01-2022 History of Present illness Narrative* Rowan Moraes, RT(R) - 11/06/2021 9:20 AM EDT Radiology Service Progress Note PATIENT NAME: Kimberly Nava DATE OF SERVICE: November 06, 2021 TIME: 3:49 PM PATIENT IDENTITY VERIFICATION COMPLETED USING TWO (2) IDENTIFIERS: Name and Date of confirmedby patient verbally. FALL SCREENING: Has the patient [...] 06, 2021 3:49 PM documented in this encounterOhiohealth Arthur G.[facility]. [facility]07-26-2022 Miscellaneous Notes* Telephone Encounter - Mehreen Montes RN - 10/31/2021 9:22 AM EDT I spoke with pt today and he reports that [facility] and consult here is no longer neccessary. * Telephone Encounter - Andreia Chandler - 08/16/2021 11:59 AM EDT Spoke with patient and he still hasn't heard anything re: [facility] Authorization for treatment and we have not received an authorization either. Patient will call when he is able to schedule. Andreia Chandler * Telephone Encounter - Aimee Godwin RN - 08/16/2021 8:15 AM EDT PSS's- Would you give patient a call and offer to reschedule with Dr Howe? I have been waiting for him to call back to rescheduled. There was a my chart message that he needed to wait on [facility] ref. and he wouldcall. I want to to make sure he gets his treatment. Thanks documented in this encounterOhiohealth Arthur G.[facility]. [facility] Center06-07-2022 Miscellaneous Notes* Telephone Encounter - Catie Green RN - 09/12/2021 8:54 AM EDT Pt called and is notified of providers results and instructions. Pt voices understanding. Sent information to Pt through [employer] as well. Catie Green RN * Telephone Encounter - Carolina Rice APRN.CNP - 09/11/2021 3:55 PM EDT Please call patient and let him know his A1c is 7.6% which is a great improvement from his last onewhich was 10%. Continue to follow with [facility] for this. Thyroid level in good range- continue current dose of synthroid. Alkaline phosphatase was elevated. Recommend additional blood work. He should fast10 hours prior. He tells me someone from [facility] comes to his house frequently. Please ask him if he canget a fax number from them so we can send them our lab results. Kidney function remains decreased but is stable. Continue to avoid NSAID products, eat low salt diet and stay hydrated. Thanks, Carolina Rice APRN.KEN documented in this encounterOhiohealth Arthur G.[facility]. [facility] Center04-21-2022 Miscellaneous Notes* Telephone Encounter - Shweta Jones - 07/27/2021 4:15 PM EDT Spoke to pt he is aware to come at 2PM but there is no spot on schedule so his appt still says 130PM. Shweta Jones * Telephone Encounter - Mehreen Montes RN - 07/27/2021 2:[address] Howe needs to open up his early afternoon on Monday 07/31 for an internal meeting. Please contact pt and change consult time from 1:30pm to 2pm per Dr Howe. Thanks. documented in this encounterOhiohealth Arthur G.[facility]. [facility] Center12-17-2015 History of Past illness Narrative* Problem [...] disease invo lving coronary bypass graft of bois forte heart without angina pectoris 11/06/2007 11/15/2020 Overview: HAd a 4 vessel bypass in 2007 and then [address] tadeo follows up with him. Last Assessment & [...] of this encounter (statuses as of 07/28/2021) [facility]12-17-2015 History of Past illness Narrative* Problem [...] Patient get machine and supplies from the [facility]. Last Assessment & Plan: Been for a sleep study, and there was a significant change to his levels, hoping he will be better during the new year. Coronary artery disease invo lving coronary bypass graft of bois forte heart without angina pectoris 11/06/2007 11/15/2020 Overview: HAd a 4 vessel bypass in 2007 and then [address] tadeo follows up with him. Last Assessment & [...] of this encounter (statuses as of 09/12/2021) [facility] History of Past illness Narrative* Problem [...] disease invo lving coronary bypass graft of bois forte heart without angina pectoris 11/06/2007 11/15/2020 Overview: HAd a 4 vessel bypass in 2007 and then [address] tadeo follows up with him. Last Assessment & [...] of this encounter (statuses as of 10/27/2021) [facility] History of Past illness Narrative* Problem [...] Patient get machine and supplies from the [place]. Last Assessment & Plan: Been for a sleep study, and there was a significant change to his levels, hoping he will be better during the new year. Coronary artery disease invo lving coronary bypass graft of bois forte heart without angina pectoris 11/06/2007 11/15/2020 Overview: HAd a 4 vessel bypass in 2007 and then [address] tadeo follows up with him. Last Assessment & [...] of this encounter (statuses as of 11/01/2021) [facility] History of Past illness Narrative* Problem [...] disease invo lving coronary bypass graft of bois forte heart without angina pectoris 11/06/2007 11/15/2020 Overview: HAd a 4 vessel bypass in 2007 and then [address] tadeo follows up with him. Last Assessment & [...] of this encounter (statuses as of 11/07/2021) [facility]12-17-2015 History of Past illness Narrative* Problem [...] Patient get machine and supplies from the [place]. Last Assessment & Plan: Been for a sleep study, and there was a significant change to his levels, hoping he will be better during the new year. Coronary artery disease invo lving coronary bypass graft of bois forte heart without angina pectoris 11/06/2007 11/15/2020 Overview: HAd a 4 vessel bypass in 2007 and then [address] tadeo follows up with him. Last Assessment & [...] of this encounter (statuses as of 11/21/2021) [facility] History of Past illness Narrative* Problem [...] disease invo lving coronary bypass graft of bois forte heart without angina pectoris 11/06/2007 11/15/2020 Overview: HAd a 4 vessel bypass in 2007 and then [address] tadeo follows up with him. Last Assessment & [...] of this encounter (statuses as of 01/29/2022) [facility] History of Past illness Narrative* Problem [...] disease invo lving coronary bypass graft of bois forte heart without angina pectoris 11/06/2007 11/15/2020 Overview: HAd a 4 vessel bypass in 2007 and then [address] tadeo follows up with him. Last Assessment & [...] of this encounter (statuses as of 04/10/2022) [facility] History of Past illness Narrative* Problem [...] disease invo lving coronary bypass graft of bois forte heart without angina pectoris 11/06/2007 11/15/2020 Overview: HAd a 4 vessel bypass in 2007 and then [address] tadeo follows up with him. Last Assessment & [...] of this encounter (statuses as of 05/14/2022) [facility] History of Past illness Narrative* Problem [...] disease invo lving coronary bypass graft of bois forte heart without angina pectoris 11/06/2007 11/15/2020 Overview: HAd a 4 vessel bypass in 2007 and then [address] tadeo follows up with him. Last Assessment & [...] of this encounter (statuses as of 07/05/2022) [facility] History of Past illness Narrative* Problem [...] Patient get machine and supplies from the [place]. Last Assessment & Plan: Been for a sleep study, and there was a significant change to his levels, hoping he will be better during the new year. Coronary artery disease invo lving coronary bypass graft of bois forte heart without angina pectoris 11/06/2007 11/15/2020 Overview: HAd a 4 vessel bypass in 2007 and then [address] tadeo follows up with him. Last Assessment & [...] of this encounter (statuses as of 07/09/2022) [facility] History of Past illness Narrative* Problem [...] Patient get machine and supplies from the [place]. Last Assessment & Plan: Been for a sleep study, and there was a significant change to his levels, hoping he will be better during the new year. Coronary artery disease invo lving coronary bypass graft of bois forte heart without angina pectoris 11/06/2007 11/15/2020 Overview: HAd a 4 vessel bypass in 2007 and then [address] tadeo follows up with him. Last Assessment & [...] of this encounter (statuses as of 02/08/2023) [facility] History of Past illness Narrative* Problem [...] disease invo lving coronary bypass graft of bois forte heart without angina pectoris 11/06/2007 11/15/2020 Overview: HAd a 4 vessel bypass in 2007 and then [address] tadeo follows up with him. Last Assessment & [...] of this encounter (statuses as of 02/08/2023) [facility] Author Allison Evangelista [facility] Note Date/Time September 25, 2024 4:15 pm [facility] Medical Records Department [address] [place] [address] Anesthesia Postop Eval II 09/25/24 1547 MR#: [id number] Acct: [id number] Name: KIMBERLY NAVA Rep #:[id number] : 1945 79 From: Allison Evangelista CRNA PCP: Dr. Kobi Adair MD Status :ADM CHINTAN Y Race: C Location: MS3 [id number] Anesthesia Postop Eval I Sum Postop Eval Completion status Anesthesia document: Postop Eval 1 completed: Yes Anesthesia Postop Eval I Summary Anesthesia Postop Eval I Summary: Anesthesia Postop Eval I: Assessment Summary Airway patent Yes 09/25/24 12:26 [email or web address] Spontaneous unlabored Yes 09/25/24 12:26 [email or web address] respirations Mental status Awake,Calm 09/25/24 12:26 [email or web address] nausea No 09/25/24 12:26 [email or web address] Vomiting No 09/25/24 12:26 [email or web address] Anesthesia Postop Eval I: Fluid Summary Crystalloid volume administer 900 09/25/24 12:26 SIGNAL [email or web address].MDOT (ml) Colloids volume administered ( ml) Blood Product volume administered (ml) Total IV fluid infused 900 09/25/24 12:26 [email or web address] Anesthesia Postop Eval I: Summary Notes Anesthesia Complication No 09/25/24 12:26 [email or web address] Anesthesia Complication Comment: Post-operative progress note Anesthesia: Postop Eval II Evaluation Mental status: Awake Pain Level: 2 nausea: No Vomiting: No 09/25/24 7788 <Electronically signed by Allison cochran CRNA> Date _ Allison Evangelista CRNA Cosigner Signature: Date CC: ~ Signed [facility] Work Phone: Discharge summary Author Darwin Kruger [facility] Note Date/Time September 28, 2024 11:1 3am [facility] Medical Records Department [address] [place] [address] Emergency Department Summary 09/28/24 MR#: [id number] Acct: [id number] Name: KIMBERLY NAVA Rep #:[id number] : 1945 79 From: Darwin Kruger DO PCP: [facility] Status:REG ER Location: ED HPI History of Present Illness Chief Complaint: Flank Pain Narrative Narrative: Patient is a 79-year-old male with past medical history of DVT, tubular adenoma of the colon, ANABELL, kidney stones with recent lithotripsy, diabetes, CHF, hypothyroidism who presents to the emergency department chief complaint of abdominal pain. Patient states that last week he was diagnosed with a kidney stone and had lithotripsy performed. He states that afterwards he was still having discomfort however he states that nothing seem to be worsening. He states that yesterday afternoon he actually started feeling better and then by the evening again he started feeling worse with painful urination. He states that he has not any blood thinning medications currently. He currently rates his pain a 5 out of 10 in the left lower portion of his abdomen. Denies any recent contacts denies dark tarry stools blood in the stool [facility] Medical History Former tobacco use History of [...] CHF (congestive heart failure) Hyperlipidemia Home Medications ?Medication ?Instructions ?Recorded ?Last Taken ?Type aspirin 81 mg chewable tablet 81 mg PO DAILY heart hea lth 03/10/13 09/27/24 History atorvastatin 40 mg tablet 40 mg PO QHS cholesterol 06/1809/27/24 History levothyroxine 200 mcg tablet 200 mcg PO DAILY thyroid 03/10/13 09/27/24 History (Levoxyl) nitroglycerin 0.4 mg sublingual 0.4 mg sublingual Q5M PRN Chest 03/10/13 05/02/18 History tablet Pain sertraline 50 mg tablet 50 mg PO DAILY mental health 04/14/15 09/27/24 History famotidine 10 mg tablet 10 mg PO DAILY reflux 09/27/24 History semaglutide 0.25 mg or 0.5 mg (2 0.5 mg subcut TH diab etes 02/18/21 09/24/24 History mg/1.5 mL) subcutaneous pen injector (Ozempic) carbidopa ER 25 mg-levodopa 100 mg 1 tab PO QHS tremor s 04/14/24 09/27/24 History tablet,extended release multivitamin with iron 1 tab PO DAILY multivitamin 04/14/24 09/27/24 History vit C 250 mg-vit E 90 mg-zinc 40 1 tab PO BID vitamin 04/14/24 09/27/24 History mg-copper 1 [id number] capsule (PreserVision AREDS-2) clopidogrel 75 mg tablet 75 mg PO DAILY antiplatelet 09/23/24 09/27/24 History insulin glargine 100 unit/mL (3 30 unit subcut BID heydi betes 09/23/24 09/27/24 History mL) subcutaneous pen (Lantus Solostar U-100 Insulin) losartan 25 mg tablet 12.5 mg PO DAILY htn 5 09/27/24 History potassium chloride 10 mEq 10 meq PO DAILY supplement 0 09/23/24 09/27/24 History tablet,extended release (Klor-Con) tamsulosin 0.4 mg capsule (Flomax) 0.8 mg PO QHS bladd er 09/23/24 09/27/24 History trospium 20 mg tablet 20 mg PO BID antispasmodic 0 09/23/24 09/27/24 History cholecalciferol (vitamin D3) 50 2,000 unit PO DAILY 09/27/24 History mcg (2,000 unit) chewable tablet empagliflozin 25 mg tablet 25 mg PO DAILY 09/24/24 History furosemide 20 mg tablet 20 mg PO Q12H diuretic 09/2409/27/24 History magnesium oxide 420 mg tablet 420 mg PO QHS supplement 09/24/24 09/27/24 History metoprolol tartrate 25 mg tablet 50 mg PO Q12H htn 09/27/24 History trazodone 50 mg tablet 25 mg PO QHS PRN sleep 09/2409/27/24 History ciprofloxacin HCl 500 mg tablet 500 mg PO BID #14 tabs 09/25/24 09/27/24 Rx oxycodone 5 mg tablet 5 mg PO Q6H PRN pain 7 days #20 09/25/24 09/27/24 Rx tabs Allergy/AdvReac Type Severity Reaction Status Date / Time Anesthetics - Amide Type - Allergy Other Verified 09/28/24 07:48 Select A Anesthetics - Rivka Type- Allergy Other Verified 09/28/24 07:48 Parabens albuterol AdvReac Mild thrush Verified 09/28/24 07:48 Family History Father CAD (coronary artery disease) Myocardial infarction Diabetes Heart disease Hypertension Brother Hypertension Diabetes Mother No problems noted. Surgical History History of ureter stent S/P thyroidectomy S/P arthroscopic knee surgery S/P hemorrhoidectomy Hx of elbow surgery S/P CABG x 4 S/P coronary artery stent placement Hx of mitral valve repair Social History household members: spouse Smoking Status: Former smoker quit date: 09/26/73 pack-years: 5 how long ago did patient quit smoking: Additional chew tobacco use history, quit 01/15/2007. alcohol intake: never substance use type: does not use ROS ROS ED ROS Narrative Constitutional: Denies fevers, chills, headaches Eyes: Denies change in vision double vision blurry vision Cardiovascular: Denies chest pain Respiratory: Denies shortness of breath Abdomen: Complains of left-sided abdominal pain as noted above denies nausea vomiting diarrhea : States that he has had persistent hematuria since the lithotripsy this is unchanged as well as his painful urination is unchanged states that he has a stent in place as well Neurological: Denies numbness, weeks, tingling Musculoskeletal: Complains of left-sided back pain Skin: Denies rashes or lesions EXAM Physical Exam Narrative Exam Narrative: General: Patient lying in bed rest comfortably did not appear to be in acute distress Head: Atraumatic, normocephalic Eyes: PERRL bilaterally, EOMI bilateral, no conjunctival injection noted Neck: Soft, supple, trachea midline Cardiovascular: Regular rate and rhythm Respiratory: Clear to auscultation bilaterally Abdomen: Soft, nondistended, mild tenderness palpation left lower quadrant no rebound or guarding on exam Musculoskeletal: Mild CVA tenderness noted on the left side, no tenderness palpation midline of the thoracic lumbar spine Extremities: +5/5 strength noted in the bilateral upper and lower extremities, radial pulses +2/4 in the bilateral extremities, no pedal edema on exam Neurological: Patient following commands knew that he was at [facility] year is 2024 Skin: Warm, dry contact no rashes or lesions noted Const Vital Signs: 09/28/24 07:45 09/28/24 09:43 Temperature 98.0 F Temperature Source Oral Pulse Rate 87 Respiratory Rate 16 Blood Pressure 159/97 H 128/84 H Blood Pressure Mean 117 98 Pulse Ox 98 Oxygen Delivery Method Room Air MDM MDM MDM Narrative Medical decision making narrative: Patient is a 79-year-old male who presents to the emergency department chief complaint of left lower abdominal pain. On the differential diagnosis includes but not limited to diverticulitis, UTI, pyelonephritis, urolithiasis, emphysematous cystitis. Once workup is obtained and reviewed he will be reevaluated Patient's CBC was reviewed showed no evidence leukocytosis white blood count normal at 6.9, hemoglobin is 15.3, platelet count was noted to be normal at 164. Patient sodium normal 141, potassium normal 3.8, creatinine was 2 which appearsto be around his baseline, AST and ALT were 28 and 14 respectively. Patient lipase normal at 52, urinalysis reviewed showed 250 blood 25 leukocyte esterase negative nitrites 0-5 white cells with no bacteria seen does not appear to have a urinary tract infection. Patient CT abdomen pelvis with IV contrast reviewed showed status post left double-J stent catheter placement. Residual left hydro and hydroureter previously seen left distal ureteral calculus is not seen at this point time. Sigmoid diverticulosis. Called and spoke with his urologist Dr. Conteh who does believe that this pain is coming from the stent and he states that he has an appointment on tohave the stent removed he is recommending following up with him on for this. I discussed this plan with the patient and significant other at bedside they areagreeable this plan they would like to go home this point in time all question concerns answered he was discharged home in stable condition. Lab Data Labs: Laboratory Results - last 24 hr 09/28/24 09/28/24 07:49 09:04 WBC 6.9 RBC 4.91 Hgb 15.3 Hct 45.8 MCV 93.3 MCH 31.2 MCHC 33.4 RDW Std Deviation 45.4 H RDW Coeff of Luther 13.3 Plt Count 164 MPV 10.5 Immature Gran % (Auto) 0.400 Neut % (Auto) 62.2 Lymph % (Auto) 21.5 Eaton % (Auto) 10.4 H Eos % (Auto) 5.1 H Baso % (Auto) 0.4 Absolute Neuts (auto) 4.3 Absolute Lymphs (auto) 1.49 Nucleated RBC % 0 Sodium 141 Potassium 3.8 Chloride 102 Carbon Dioxide 22.7 Anion Gap 16 H BUN 26 H Creatinine 2.00 H Estim Creat Clear Calc 33.38 L Est GFR (MDRD) Non-Af 33 L BUN/Creatinine Ratio 12.9 Glucose 149 H Calcium 9.2 Total Bilirubin 1.15 AST 28 ALT 14 Alkaline Phosphatase 120 Total Protein 6.7 Albumin 3.9 Globulin 2.8 Albumin/Globulin Ratio 1.4 Lipase 52 Urine Color Red Urine Clarity Sl. Cloudy Urine pH 7.0 Ur Specific Gamaliel 1.010 Urine Protein 100 H Urine Glucose (UA) 1000 H Urine Ketones Negative Urine Occult Blood 250 H Urine Nitrite Negative Urine Bilirubin Negative Urine Urobilinogen Normal Ur Leukocyte Esterase 25 H Urine RBC 25-50 SEEN Urine WBC 0-5 SEEN Ur Squamous Epith Cells 0 SEEN Urine Bacteria 0 SEEN Urine Mucus 0 SEEN Radiography Diagnostic Testing: Clinical Impression(s) from Imaging Studies Abdomen/Pelvis CT 09/28/24 08:14 IMPRESSION: Status post left double J stent catheter placement. Residual left hydronephrosis and hydroureter. The previously seen the distal left ureteral calculus is not seen at this time. Sigmoid diverticulosis. Reading Location: [id number] Discharge Plan Triage Chief Complaint: Flank Pain ED Provider: Darwin Kruger Dx/Rx/DC Orders Clinical Impression: Left flank pain, Abdominal pain, Hematuria, Status post laser lithotripsy of ureteral calculus Prescriptions: No Action atorvastatin 40 MG tablet 40 mg PO QHS Patient Comments: cholesterol nitroglycerin 0.4 MG tablet 0.4 mg sublingual Q5M PRN (Reason: Chest Pain) Patient Comments: chest pain aspirin 81 MG tablet,chewable 81 mg PO DAILY Patient Comments: heart health levothyroxine [Levoxyl] 200 MCG tablet 200 mcg PO DAILY Patient Comments: thyroid sertraline 50 MG tablet 50 mg PO DAILY Ozempic 0.25 mg or 0.5 mg(2 mg/1.5 mL) Pen Injector 0.5 mg SUBCUT TH famotidine 10 mg Tablet 10 mg PO DAILY carbidopa-levodopa 25-100 mg tablet extended release 1 tab PO QHS multivitamin with iron Tablet 1 tab PO DAILY PreserVision AREDS-2 250-90-40-1 mg capsule 1 tab PO BID tamsulosin [Flomax] 0.4 mg capsule 0.8 mg PO QHS losartan 25 mg tablet 12.5 mg PO DAILY trospium 20 mg tablet 20 mg PO BID Rx Instructions: administer on an empty stomach clopidogrel 75 mg tablet 75 mg PO DAILY potassium chloride [Klor-Con 10] 10 mEq tablet extended release 10 meq PO DAILY insulin glargine [Lantus Solostar U-100 Insulin] 100 unit/mL (3 mL) insulin pen 30 unit subcut BID magnesium oxide 420 mg tablet 420 mg PO QHS empagliflozin 25 mg tablet 25 mg PO DAILY cholecalciferol (vitamin D3) 50 mcg (2,000 unit) tablet,chewable 2,000 unit PO DAILY trazodone 50 mg tablet 25 mg PO QHS PRN (Reason: sleep) furosemide 20 mg tablet 20 mg PO Q12H metoprolol tartrate 25 mg Tablet 50 mg PO Q12H oxycodone 5 mg tablet 5 mg PO Q6H PRN (Reason: pain) 7 Days Qty: 20 0RF ciprofloxacin HCl 500 mg tablet 500 mg PO BID Qty: 14 0RF [facility] Referrals: Kobi Adair MD [Non-Staff] - Activity Restrictions/Additional Instructions: Follow-up with Dr. Conteh at your next scheduled appointment to have your stent removed. I did discuss with him and he believes that your pain is coming from your stent and likely should get better after this is removed. Return with worsening symptoms or any other concerns. Your CT scan that was done here todaydid not show any acute findings. Your blood work here today did not show any acute abnormalities either. Print Language: Niuean Disposition Disposition: Home, Self Care What to do if you have Problems For any increased pain, shortness of breath, bleeding, nausea or vomiting, chestpain, or any unexpected problems, contact your Primary Care Provider. Call [facility] ([phone]) or report to the closest Emergency Room. Call 911 if necessary. 09/28/24 1113 <Electronically signed by Darwin Kruger DO> Cosigner Signature (if applicable): CC: [facility] ~ Signed [facility] Work Phone: Discharge summary Author Wally Molina [facility] Note Date/Time September 30, 2024 12:4 3am [facility] Medical Records Department [address] [place] [address] Emergency Department Summary 09/30/24 MR#: [id number] Acct: [id number] Name: KIMBERLY NAVA Rep #:[id number] : 1945 79 From: Wally Molina MD PCP: [facility] Status:REG ER Location: ED ADDENDUM by Dr. Wally Molina MD on 09/30/24 at 0043 EKG was obtained and reveals atrial fibrillation rate of 134. QRS duration 70 ms. QT durations are 32 ms. There is decreased anterior force. At time of discharge monitor reveals patient have a heart rate of 85-95. This is without treatment. 09/30/24 0043<Electronically signed by Wally Molina MD> Cosigner Signature (if applicable): cc: [facility] ~* Signed HPI History of Present Illness Chief Complaint: Flank Pain PFSH PFSH Medical History Former tobacco use History of [...] CHF (congestive heart failure) Hyperlipidemia Home Medications ?Medication ?Instructions ?Recorded ?Last Taken ?Type aspirin 81 mg chewable tablet 81 mg PO DAILY heart hea lth 03/10/13 09/27/24 History atorvastatin 40 mg tablet 40 mg PO QHS cholesterol 06/1809/27/24 History levothyroxine 200 mcg tablet 200 mcg PO DAILY thyroid 03/10/13 09/27/24 History (Levoxyl) nitroglycerin 0.4 mg sublingual 0.4 mg sublingual Q5M PRN Chest 03/10/13 05/02/18 History tablet Pain sertraline 50 mg tablet 50 mg PO DAILY mental health 04/14/15 09/27/24 History famotidine 10 mg tablet 10 mg PO DAILY reflux 09/27/24 History semaglutide 0.25 mg or 0.5 mg (2 0.5 mg subcut TH diab etes 02/18/21 09/24/24 History mg/1.5 mL) subcutaneous pen injector (Ozempic) carbidopa ER 25 mg-levodopa 100 mg 1 tab PO QHS tremor s 04/14/24 09/27/24 History tablet,extended release multivitamin with iron 1 tab PO DAILY multivitamin 04/14/24 09/27/24 History vit C 250 mg-vit E 90 mg-zinc 40 1 tab PO BID vitamin 04/14/24 09/27/24 History mg-copper 1 [id number] capsule (PreserVision AREDS-2) clopidogrel 75 mg tablet 75 mg PO DAILY antiplatelet 09/23/24 09/27/24 History insulin glargine 100 unit/mL (3 30 unit subcut BID heydi betes 09/23/24 09/27/24 History mL) subcutaneous pen (Lantus Solostar U-100 Insulin) losartan 25 mg tablet 12.5 mg PO DAILY htn 5 09/27/24 History potassium chloride 10 mEq 10 meq PO DAILY supplement 0 09/23/24 09/27/24 History tablet,extended release (Klor-Con) tamsulosin 0.4 mg capsule (Flomax) 0.8 mg PO QHS bladd er 09/23/24 09/27/24 History trospium 20 mg tablet 20 mg PO BID antispasmodic 0 09/23/24 09/27/24 History cholecalciferol (vitamin D3) 50 2,000 unit PO DAILY 09/27/24 History mcg (2,000 unit) chewable tablet empagliflozin 25 mg tablet 25 mg PO DAILY 09/24/24 History furosemide 20 mg tablet 20 mg PO Q12H diuretic 09/2409/27/24 History magnesium oxide 420 mg tablet 420 mg PO QHS supplement 09/24/24 09/27/24 History metoprolol tartrate 25 mg tablet 50 mg PO Q12H htn 09/27/24 History trazodone 50 mg tablet 25 mg PO QHS PRN sleep 09/2409/27/24 History ciprofloxacin HCl 500 mg tablet 500 mg PO BID #14 tabs 09/25/24 09/27/24 Rx oxycodone 5 mg tablet 5 mg PO Q6H PRN pain 7 days #20 09/25/24 09/27/24 Rx tabs cephalexin 500 mg capsule 500 mg PO Q8 #15 CAPSULES Unknown Rx Allergy/AdvReac Type Severity Reaction Status Date / Time Anesthetics - Amide Type - Allergy Other Verified 09/29/24 20:41 Select A Anesthetics - Rivka Type- Allergy Other Verified 09/29/24 20:41 Parabens albuterol AdvReac Mild thrush Verified 09/29/24 20:41 Family History Father CAD (coronary artery disease) Myocardial infarction Diabetes Heart disease Hypertension Brother Hypertension Diabetes Mother No problems noted. Surgical History History of ureter stent S/P thyroidectomy S/P arthroscopic knee surgery S/P hemorrhoidectomy Hx of elbow surgery S/P CABG x 4 S/P coronary artery stent placement Hx of mitral valve repair Social History household members: spouse Smoking Status: Former smoker quit date: 09/26/73 pack-years: 5 how long ago did patient quit smoking: Additional chew tobacco use history, quit 01/15/2007. alcohol intake: never substance use type: does not use EXAM Physical Exam Const Vital Signs: 09/29/24 20:42 09/29/24 20:44 09/29/24 21:44 Temperature 97 F L 98.2 F 98.2 F Temperature Source Temporal Oral Oral Pulse Rate 89 89 64 Respiratory Rate 22 H 18 18 Blood Pressure 111/76 157/98 H 158/98 H Blood Pressure Mean 87 117 118 Pulse Ox 96 96 96 Oxygen Delivery Method Room Air Room Air Room Air 09/29/24 22:00 09/29/24 23:00 Temperature 98.2 F 98.2 F Temperature Source Oral Oral Pulse Rate 64 88 Respiratory Rate 18 18 Blood Pressure 158/98 H 149/99 H Blood Pressure Mean 118 115 Pulse Ox 96 95 Oxygen Delivery Method Room Air Room Air [facility] Lab Data Attestation: I reviewed the patient's lab results. Lab results narrative: CBC is unremarkable. There is no white count or shift. Electrolyte panel is remarkable for BUN/creatinine of 28 and 2.27. Urinalysis is remarkable for cloudy harshad appearance and macro was positive for protein, glucose, occult blood, nitrites and leukoesterase. Micro reveals greater than 100 RBCs, 10-25 WBCs with 2+ bacteria. Since patient has leukoesterase, nitrites, pyuria with 2+ bacteria which is new culture was sent and he received 1 g of Rocephin. Labs: Laboratory Results - last 24 hr 09/29/24 09/29/24 09/29/24 20:54 22:46 22:51 WBC 8.8 RBC 4.74 Hgb 14.9 Hct 44.3 MCV 93.5 MCH 31.4 MCHC 33.6 RDW Std Deviation 46.5 H RDW Coeff of Luther 13.5 Plt Count 220 MPV 11.3 Immature Gran % (Auto) 0.300 Neut % (Auto) 64.4 Lymph % (Auto) 18.7 L Eaton % (Auto) 10.7 H Eos % (Auto) 5.2 H Baso % (Auto) 0.7 Absolute Neuts (auto) 5.7 Absolute Lymphs (auto) 1.64 Nucleated RBC % 0 Sodium 139 Potassium 4.9 Chloride 104 Carbon Dioxide 19.6 L Anion Gap 15 BUN 28 H Creatinine 2.27 H Estim Creat Clear Calc 29.35 L Est GFR (MDRD) Non-Af 29 L BUN/Creatinine Ratio 12.3 Glucose 114 H Calcium 9.2 Urine Color Harshad Urine Clarity Cloudy Urine pH 6.0 Ur Specific Gamaliel 1.020 Urine Protein 100 H Urine Glucose (UA) 1000 H Urine Ketones Negative Urine Occult Blood 250 H Urine Nitrite Positive H Urine Bilirubin Negative Urine Urobilinogen Normal Ur Leukocyte Esterase 100 H Urine RBC > 100 SEEN Urine WBC 10-25 SEEN Ur Squamous Epith Cells 5-10 SEEN Ur Transition Epith Cell 0-5 SEEN Urine Bacteria 2+ Urine Mucus 0 SEEN POC Glucose 102 Radiography Diagnostic Testing: Clinical Impression(s) from Imaging Studies Abdomen/Pelvis CT 09/29/24 21:22 IMPRESSION: 1. No significant interval change in the moderate left hydroureteronephrosis, with stent in unchanged position. Hyperdense contents within the left renal collecting system, ureter, and urinary bladder may represent delayed excretion of the contrast from the CT performed yesterday. Blood products could also appear similar. 2. Punctate focus of air within the urinary bladder could be the result of recent instrumentation, though emphysematous cystitis could appear similar. Reading Location: [id number] Treatment and Re-Evaluation :: Patient initially was treated with morphine. Recurrence of his pain. He is given additional dose of morphine. CT essentially is unchanged from prior film. Will discuss case with Dr. Conteh since he operated on him on September 25. Spoke with Dr. Conteh. He is scheduled to see the patient on . He removed his stent at that time. He will follow-up on the cultures. Requested cephalexin. Patient has oxycodone at home. He is instructed take the oxycodoneevery 4-6 hours for the pain. Discharge Plan Triage Chief Complaint: Flank Pain ED Provider: Wally Molina Dx/Rx/DC Orders Clinical Impression: Complicated urinary tract infection, Chronic kidney disease (CKD), Left flank pain, Hematuria, Status post laser lithotripsy of ureteral calculus, Hydronephrosis of left kidney Instructions: ED Bladder Infection, Male (Adult) Prescriptions: New cephalexin 500 mg capsule 500 mg PO Q8 Qty: 15 0RF No Action atorvastatin 40 MG tablet 40 mg PO QHS Patient Comments: cholesterol nitroglycerin 0.4 MG tablet 0.4 mg sublingual Q5M PRN (Reason: Chest Pain) Patient Comments: chest pain aspirin 81 MG tablet,chewable 81 mg PO DAILY Patient Comments: heart health levothyroxine [Levoxyl] 200 MCG tablet 200 mcg PO DAILY Patient Comments: thyroid sertraline 50 MG tablet 50 mg PO DAILY Ozempic 0.25 mg or 0.5 mg(2 mg/1.5 mL) Pen Injector 0.5 mg SUBCUT TH famotidine 10 mg Tablet 10 mg PO DAILY carbidopa-levodopa 25-100 mg tablet extended release 1 tab PO QHS multivitamin with iron Tablet 1 tab PO DAILY PreserVision AREDS-2 250-90-40-1 mg capsule 1 tab PO BID tamsulosin [Flomax] 0.4 mg capsule 0.8 mg PO QHS losartan 25 mg tablet 12.5 mg PO DAILY trospium 20 mg tablet 20 mg PO BID Rx Instructions: administer on an empty stomach clopidogrel 75 mg tablet 75 mg PO DAILY potassium chloride [Klor-Con 10] 10 mEq tablet extended release 10 meq PO DAILY insulin glargine [Lantus Solostar U-100 Insulin] 100 unit/mL (3 mL) insulin pen 30 unit subcut BID magnesium oxide 420 mg tablet 420 mg PO QHS empagliflozin 25 mg tablet 25 mg PO DAILY cholecalciferol (vitamin D3) 50 mcg (2,000 unit) tablet,chewable 2,000 unit PO DAILY trazodone 50 mg tablet 25 mg PO QHS PRN (Reason: sleep) furosemide 20 mg tablet 20 mg PO Q12H metoprolol tartrate 25 mg Tablet 50 mg PO Q12H oxycodone 5 mg tablet 5 mg PO Q6H PRN (Reason: pain) 7 Days Qty: 20 0RF ciprofloxacin HCl 500 mg tablet 500 mg PO BID Qty: 14 0RF Primary Care Provider: [place] Referrals: Cory Conteh MD [Med Staff - Active Staff] - Keep Rusty appointment [place] [Primary Care Provider] - Activity Restrictions/Additional Instructions: 1. If you develop a temperature greater than 100 shaking chills, severe pain not controlled by your pain medication return to the emergency department 2. Take the antibiotic 3 times a day until gone 3. You may take one of your oxycodone tablets every 4-6 hours for pain. Recommend taking [id number] for the first day. Print Language: Niuean Disposition Disposition: Home, Self Care What to do if you have Problems For any increased pain, shortness of breath, bleeding, nausea or vomiting, chestpain, or any unexpected problems, contact your Primary Care Provider. Call [facility] ([phone]) or report to the closest Emergency Room. Call 911 if necessary. 09/30/24 0033 <Electronically signed by Wally Molina MD> Cosigner Signature (if applicable): CC: [facility] ~ Signed [facility] Work Phone: Evaluation note* Diagnosis Elevated alkaline phosphatase level- Primary Other nonspecific abnormal serum enzyme levels [facility]* Diagnosis Type 2 diabetes mellitus with diabetic nephropathy, with long-term current use of insulin (HCC) [facility]* Diagnosis Lung nodules Other nonspecific abnormal finding of lung field [facility]* Diagnosis Lung nodules- Primary Other nonspecific abnormal finding of lung field [facility]* Diagnosis Onychomycosis- Primary Dermatophytosis of nail Pain in toe of left foot Pain in limb Pain in toe of right foot Pain in limb Diabetic polyneuropathy associated with type 2 diabetes mellitus (HCC) Ingrowing toenail of right foot Ingrowing nail [facility] Diagnosis Screening for ischemic heart disease- Primary Shortness of breath Hypertensive heart disease with diastolic heart failure (HCC) Unspecified hypertensive heart disease with heart failure Mixed hyperlipidemia S/P CABG x 4 Postsurgical aortocoronary bypass status [facility]* Diagnosis Screening for ischemic heart disease- Primary [facility]* Diagnosis Coronary artery disease involving bois forte coronary artery of bois forte heart without angina pectoris- Primary Mixed hyperlipidemia [...] Mitral valve disorders [facility] noteNo assessment information availableWBarberton Citizens [facility] Work Phone: Evaluation note* Diagnosis Esophageal reflux- Primary Vitamin D deficiency Unspecified vitamin D deficiency Allergic rhinitis, cause unspecified DIABETES MELLITUS TYPE II-UNCOMPL Type II or unspecified type diabetes mellitus without mention of complication, not stated as uncontrolled Dizziness Dizziness and giddiness Diabetes (HCC)- Primary Type II or unspecified type diabetes mellitus without mention of complication, not stated as uncontrolled Hypothyroidism Unspecified hypothyroidism Hypokalemia Hypopotassemia HYPERLIPIDEMIA NEC/NOS Other and unspecified hyperlipidemia CAD (CORONARY ARTERY DISEASE) BYPASS GRFT-UNSPECIFIED Coronary atherosclerosis of unspecified type of bypass graft HYPERTENSION NOS Unspecified essential hypertension Vitamin D deficiency Unspecified vitamin D deficiency 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, single episode, mild Restless legs syndrome Restless legs syndrome (RLS) Proteinuria Type 2 diabetes mellitus with diabetic nephropathy (HCC) Type II or unspecified type diabetes mellitus with renal manifestations, not stated as uncontrolled Knee pain- Primary Pain in joint, lower leg Restless leg syndrome Restless legs syndrome (RLS) Hypomagnesemia 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 (HCC) Type II or unspecified type diabetes mellitus with renal manifestations, not stated as uncontrolled Postsurgical hypothyroidism Hypothyroidism Unspecified hypothyroidism Type 2 diabetes mellitus with diabetic nephropathy- Primary Type II or unspecified type diabetes mellitus with renal manifestations, not stated as uncontrolled Hypomagnesemia Disorders of magnesium metabolism Unspecified essential hypertension Vitamin D deficiency Unspecified vitamin D deficiency Esophageal reflux Postsurgical hypothyroidism Knee pain Pain in joint, lower leg Insomnia Insomnia, unspecified Type 2 diabetes mellitus with diabetic nephropathy- Primary Type II or unspecified type diabetes mellitus with renal manifestations, not stated as uncontrolled Pedal edema Edema Unspecified essential hypertension Other and unspecified hyperlipidemia Hypomagnesemia Disorders of magnesium metabolism Vitamin D deficiency Unspecified vitamin D deficiency Insomnia Insomnia, unspecified Need for prophylactic vaccination and inoculation against influenza Postsurgical hypothyroidism- Primary Unspecified essential hypertension Other and unspecified hyperlipidemia Type 2 diabetes mellitus with diabetic nephropathy Type II or unspecified type diabetes mellitus with renal manifestations, not stated as uncontrolled Vitamin D deficiency Unspecified vitamin D deficiency Depression Depressive disorder, not elsewhere classified Postsurgical hypothyroidism- Primary Depression Depressive disorder, not elsewhere classified Vitamin D deficiency Unspecified vitamin D deficiency Hypomagnesemia 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 Type II or unspecified type diabetes mellitus with renal manifestations, not stated as uncontrolled Unspecified essential hypertension Hyperlipidemia LDL goal < 100 Other and unspecified hyperlipidemia CAD (CORONARY ARTERY DISEASE) BYPASS GRFT-UNSPECIFIED Coronary atherosclerosis of unspecified type of bypass graft Unspecified essential hypertension- Primary Other and unspecified hyperlipidemia Type 2 diabetes mellitus with diabetic nephropathy Type II or unspecified type diabetes mellitus with renal manifestations, not stated as uncontrolled 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- Primary Type II or unspecified type diabetes mellitus with renal manifestations, not stated as uncontrolled Hyperlipidemia Other and unspecified hyperlipidemia Other and unspecified hyperlipidemia Depression Depressive disorder, not elsewhere classified CAD (CORONARY ARTERY DISEASE) BYPASS GRFT-UNSPECIFIED Coronary atherosclerosis of unspecified type of bypass graft Type 2 diabetes mellitus with diabetic nephropathy- Primary Type II or unspecified type diabetes mellitus with renal manifestations, not stated as uncontrolled Other and unspecified hyperlipidemia Unspecified sleep apnea Depression- Primary Depressive disorder, not elsewhere classified ANABELL (obstructive sleep apnea) Obstructive sleep apnea (adult) (pediatric) Obstructive sleep apnea syndrome Obstructive sleep apnea (adult) (pediatric) Essential hypertension Unspecified essential hypertension Hemorrhoid prolapse Unspecified hemorrhoids with other complication Type 2 diabetes mellitus with diabetic nephropathy Type II or unspecified type diabetes mellitus with renal manifestations, not stated as uncontrolled Need for prophylactic vaccination against Streptococcus pneumoniae (pneumococcus) Need for prophylactic vaccination against streptococcus pneumoniae (pneumococcus) Hypothyroidism, unspecified type- Primary Benign prostatic hyperplasia with lower urinary tract symptoms, unspecified morphology Essential hypertension with goal blood pressure less than 140/90 Need for vaccination Need for prophylactic vaccination and inoculation against unspecified single disease Type 2 diabetes mellitus with diabetic nephropathy Type II or unspecified type diabetes mellitus with renal manifestations, not stated as uncontrolled LVH (left ventricular hypertrophy) Cardiomegaly Type 2 diabetes mellitus with diabetic nephropathy, without long-term current use of insulin (HCC)- Primary Essential hypertension Unspecified essential hypertension Postsurgical hypothyroidism Hypomagnesemia Disorders of magnesium metabolism Chronic pain of both knees ANABELL (obstructive sleep apnea) Obstructive sleep apnea (adult) (pediatric) Type 2 diabetes mellitus with diabetic nephropathy, with long-term current use of insulin (HCC)- Primary Essential hypertension Unspecified essential hypertension Postsurgical hypothyroidism Primary insomnia Persistent disorder of initiating or maintaining sleep ANABELL (obstructive sleep apnea) Obstructive sleep apnea (adult) (pediatric) Essential hypertension- Primary Unspecified essential hypertension Type 2 diabetes mellitus with diabetic nephropathy, 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 Conteh at your next scheduled appointment to have your stent removed. I did discuss with him and he believes that your pain is coming from your stent and likely should get better after this is removed. Return with worsening symptoms or any other concerns. Your CT scan that was done here today did not show any acute findings. Your blood work here today did not show any acute abnormalities either.[facility] Work Phone: Reason for referral (narrative)* Diagnostic Procedure Only (Routine) - Pending Review Specialty Diagnoses / Procedures Referred By Tanner keita Referred To Contact [facility] Diagnoses Shortness of breath Procedures NM CARDIAC PERF STRESS/PHARM MYOCARDIAL SPECT MULTIPLE STUDIES Sriram Valles MD [address] [place] [address] Fax: [facility] [address] [place] [address] Referral ID Status Reason Start Date Expiration Date Visits Requested Visits Authorized [id number] Pending Review Auto-Generat ed Referral 05/14/2022 06/13/2023 1 1 * Outpatient Procedure (Routine) - Pending Review Specialty Diagnoses / Procedures Referred By Tanner keita Referred To Contact [facility] Diagnoses Shortness of breath Procedures ECHO ECHO TTHRC R-T 2D W/WOM-MODE COMPL SPEC&COLR D Sriram Valles MD [address] [place] [address] [facility] [place] [address] [place] [address] Referral ID Status Reason Start Date Expiration Date Visits Requested Visits Authorized [id number] Pending Review Auto-Generat ed Referral 05/21/2022 05/14/2023 1 1 * Outpatient Procedure (Routine) - Closed Specialty Diagnoses / Procedures [facility] Diagnoses Screening for ischemic heart disease Procedures ECG COMPLETE ECG ROUTINE ECG W/LEAST 12 LDS W/I&R Sriram Valles MD [address] [place] [address] Fax: [facility] [place] [address] [place] [address] Referral ID Status Reason Start Date Expiration Date V isits Requested Visits Authorized [id number] Closed Auto-Generate d Referral 05/09/2022 05/09/2023 1 1 [facility] for referral (narrative)* Outpatient Procedure (Routine) - Authorized Specialty Diagnoses / Procedures Referred By Contac t Referred To Contact [facility] Diagnoses Hypertensive heart disease with diastolic heart failure (HCC) Mitral valve disorder Procedures ECHO ECHO TTHRC R-T 2D W/WOM-MODE COMPL SPEC&COLR D Sriram Valles MD [address], [address] [place] [address] [facility] [place] [id number] [place] [id number] Referral ID Status Reason Start Date Expiration Date Visits Requested Visits Authorized [id number] Authorized Auto-Generat ed Referral 07/29/2024 10/27/2024 1 1 * Outpatient Procedure (Routine) - New Request Specialty Diagnoses / Procedures Referred By Contac t Referred To Contact [facility] Diagnoses Screening for ischemic heart disease Coronary artery disease involving bois forte coronary artery of bois forte heart without angina pectoris Mixed hyperlipidemia Procedures ECG COMPLETE ECG ROUTINE ECG W/LEAST 12 LDS W/I&R Sriram Valles MD [address], [address] [place] [address] [facility] [place] [address] [place] [address] Referral ID Status Reason Start Date Expiration Date Visits Requested Visits Authorized [id number] New Request Auto-Generat ed Referral 10/28/2023 10/23/2024 1 1 [facility] for referral (narrative)No reason for referral information availableWBarberton Citizens Hospital Work Phone: [facility] for visit Narrative* Diagnostic Procedure Only (Routine) - Closed Specialty Diagnoses / Procedures Referred By Contmarilyn t Referred To Contact [facility] Diagnoses Shortness of breath Procedures NM CARDIAC PERF STRESS/PHARM MYOCARDIAL SPECT MULTIPLE STUDIES Sriram Valles MD [address] [place] [address] [facility] [address] [place] [id number] Referral ID Status Reason Start Date Expiration Date V isits Requested Visits Authorized [id number] Closed Auto-Generate d Referral 05/14/2022 06/13/2023 1 1 [facility] Summary Purpose Family History Relationship Condition Age at Onset Recorded Date/T davin father Coronary artery disease Unknown Myocardial infarction Unknown Diabetes mellitus Unknown Cardiac disease Unknown Hypertension Unknown brother Hypertension Unknown Advance Directives Advance Directive Response Recorded Date/ Time Do you have a Healthcare Power of Electric Refrigerator Preparer? No September 23, 2024 4:13pm Advance Directives No April 14, 2015 10:30am Advance Directive Response Recorded Date/ Time Do you have a Healthcare Power of Electric Refrigerator Preparer? Yes September 23, 2024 9:27pm Name of Medical Power of Electric Refrigerator Preparer Noemí E Pennel l September 23, 2024 9:27pm Advance Directives No April 14, 2015 10:30am Advance Directive Response Recorded Date/ Time Do you have a Healthcare Power of Electric Refrigerator Preparer? Yes September 28, 2024 7:49am Do you have a Healthcare Power of Electric Refrigerator Preparer? Yes September 23, 2024 9:27pm Name of Medical Power of Electric Refrigerator Preparer Noemí E Pennel l September 23, 2024 9:27pm Advance Directives No April 14, 2015 10:30am Advance Directive Response Recorded Date/ Time Do you have a Healthcare Power of Electric Refrigerator Preparer? Yes September 28, 2024 7:49am Do you have a Healthcare Power of Electric Refrigerator Preparer? Yes September 23, 2024 9:27pm Name of Medical Power of Electric Refrigerator Preparer Noemí E Pennel l September 23, 2024 9:27pm Do you have a Healthcare Power of Electric Refrigerator Preparer? Yes September 29, 2024 8:48pm Advance Directives No April 14, 2015 10:30am Advance Directive Response Recorded Date/ Time Do you have a Healthcare Pow er of Electric Refrigerator Preparer? Yes September 28, 2024 7:49am Do you have a Healthcare Pow er of Electric Refrigerator Preparer? Yes September 23, 2024 9:27pm Name of Medical Power of Electric Refrigerator Preparer Noemí taylor September 23, 2024 9:27pm Do you have a Healthcare Pow er of Electric Refrigerator Preparer? Yes September 29, 2024 8:48pm Do you have a Healthcare Pow er of Electric Refrigerator Preparer? Yes December 23, 2024 3:25pm Name of Medical Power of Electric Refrigerator Preparer noemí nava December 23, 2024 3:25pm Advance Directives No April 14, 2015 10:30am Reason for Referral Specialty Diagnoses / Procedures Referred By Tanner t Referred To Contact CT IMAGING Diagnoses Lung nodules Procedures CT CHEST WO IVCON DIAGNOSTIC COMPUTED TOMOGRAPHY THORAX W/O CNTRST [place], [employer] [address] [place] [address] Ct Imaging Referral ID Status Reason Start Date Expiration Date V isits Requested Visits Authorized [id number] Closed Auto-Generate d Referral 11/26/2021 06/28/2022 1 1 Referral ID Status Reason Start Date Expiration Date Visits Requested Visits Authorized [id number] Pending Review Auto-Generat ed Referral 11/08/2021 12/07/2022 1 1 Chief Complaint and Reason for Visit Chief Complaint Admit Date KIDNEY STONE September 23, 2024 10:0 0pm FLANK PAIN September 28, 2024 7:42 am Reason for Visit Admit Date Inability to walk September 23, 2024 10:0 0pm Intractable pain September 23, 2024 10:0 0pm Ureteral calculus September 23, 2024 10:0 0pm Chronic kidney disease (CKD) September 23, 2024 10:00pm Chief Complaint Admit Date RADHA LEFT KIDNEY HYDRONEPHROSIS September 8:10pm Chief Complaint Admit Date KIDNEY STONE September 23, 2024 10:0 0pm Chief Complaint Admit Date KIDNEY STONE September 23, 2024 10:0 0pm FLANK PAIN September 28, 2024 7:42 am L FLANK PAIN September 29, 2024 8:41 pm Chief Complaint Admit Date KIDNEY STONE September 23, 2024 10:0 0pm PREOP September 25, 2024 4:34 am FLANK PAIN September 28, 2024 7:42 am L FLANK PAIN September 29, 2024 8:41 pm FALL December 23, 2024 2:43pm Additional Source Comments (unrecognized sect ion and content) No Status Records FoundNo Status Records FoundNo Status Records FoundNo Status Records FoundNo Status Records FoundNo Status Records Found INFORMATION SOURCE (unrecogn ized section and content) DATE CREATED AUTHOR 09/25/2017 [facility] DATE CREATED AUTHOR AUTHOR'S ORGANIZ ATION 07/17/2020 [facility] DATE CREATED AUTHOR AUTHOR'S ORGANIZ ATION 12/19/2023 [facility] DATE CREATED AUTHOR AUTHOR'S ORGANIZ ATION 05/10/2024 [facility] DATE CREATED AUTHOR AUTHOR'S ORGANIZ ATION 10/27/2024 [facility] DATE CREATED AUTHOR AUTHOR'S ORGANIZ ATION 12/04/2024 [facility] Source Comments (unrecognize d section and content) In the event this informatio n is protected by the Federal Confidentiality of Alcohol and Drug Abuse Patient Records regulations: The Federal rules restrict any use of the information to criminally investigate or prosecute any alcohol or drug abuse patient.[facility] Center[facility] the event this information is protected by the Federal Confidentiality of Alcohol and Drug Abuse Patient Records regulations: The Federal rules restrict any use of the information to criminally investigate or prosecute any alcohol or drug abuse patient.[facility] Center[facility] the event this information is protected by the Federal Confidentiality of Alcohol and Drug Abuse Patient Records regulations: The Federal rules restrict any use of the information to criminally investigate or prosecute any alcohol or drug abuse patient.[facility] Center[facility] the event this information is protected by the Federal Confidentiality of Alcohol and Drug Abuse Patient Records regulations: The Federal rules restrict any use of the information to criminally investigate or prosecute any alcohol or drug abuse patient.[facility] CenterIn the event this information is protected by the Federal Confidentiality of Alcohol and Drug Abuse Patient Records regulations: The Federal rules restrict any use of the information to criminally investigate or prosecute any alcohol or drug abuse patient.[facility] CenterIn the event this information is protected by the Federal Confidentiality of Alcohol and Drug Abuse Patient Records regulations: The Federal rules restrict any use of the information to criminally investigate or prosecute any alcohol or drug abuse patient.[facility] CenterIn the event this information is protected by the Federal Confidentiality of Alcohol and Drug Abuse Patient Records regulations: The Federal rules restrict any use of the information to criminally investigate or prosecute any alcohol or drug abuse patient.[facility] CenterIn the event this information is protected by the Federal Confidentiality of Alcohol and Drug Abuse Patient Records regulations: The Federal rules restrict any use of the information to criminally investigate or prosecute any alcohol or drug abuse patient.[facility] CenterIn the event this information is protected by the Federal Confidentiality of Alcohol and Drug Abuse Patient Records regulations: The Federal rules restrict any use of the information to criminally investigate or prosecute any alcohol or drug abuse patient.[facility] CenterIn the event this information is protected by the Federal Confidentiality of Alcohol and Drug Abuse Patient Records regulations: The Federal rules restrict any use of the information to criminally investigate or prosecute any alcohol or drug abuse patient.[facility] CenterIn the event this information is protected by the Federal Confidentiality of Alcohol and Drug Abuse Patient Records regulations: The Federal rules restrict any use of the information to criminally investigate or prosecute any alcohol or drug abuse patient.[facility] CenterIn the event this information is protected by the Federal Confidentiality of Alcohol and Drug Abuse Patient Records regulations: The Federal rules restrict any use of the information to criminally investigate or prosecute any alcohol or drug abuse patient.[facility] CenterIn the event this information is protected by the Federal Confidentiality of Alcohol and Drug Abuse Patient Records regulations: The Federal rules restrict any use of the information to criminally investigate or prosecute any alcohol or drug abuse patient.[facility] CenterIn the event this information is protected by the Federal Confidentiality of Alcohol and Drug Abuse Patient Records regulations: The Federal rules restrict any use of the information to criminally investigate or prosecute any alcohol or drug abuse patient.[facility] CenterIn the event this information is protected by the Federal Confidentiality of Alcohol and Drug Abuse Patient Records regulations: The Federal rules restrict any use of the information to criminally investigate or prosecute any alcohol or drug abuse patient.[facility] CenterIn the event this information is protected by the Federal Confidentiality of Alcohol and Drug Abuse Patient Records regulations: The Federal rules restrict any use of the information to criminally investigate or prosecute any alcohol or drug abuse patient.[facility] CenterIn the event this information is protected by the Federal Confidentiality of Alcohol and Drug Abuse Patient Records regulations: The Federal rules restrict any use of the information to criminally investigate or prosecute any alcohol or drug abuse patient.[facility] Reason for Visit (unrecogniz ed section and content) Reason Comments change appointment Reason Comments Results Reason Comments Patient Update Reason Comments Radiology CT Specialty Diagnoses / Procedures Referred By Tanner t Referred To Contact CT IMAGING Diagnoses Lung nodules Procedures CT CHEST WO IVCON DIAGNOSTIC COMPUTED TOMOGRAPHY THORAX W/O CNTRST Carolina Rice, STORE MANAGEMENT TRAIN[employer] [address] [place] [address] Ct Imaging Referral ID Status Reason Start Date Expiration Date V isits Requested Visits Authorized [id number] Closed Auto-Generate d Referral 11/26/2021 06/28/2022 1 1 Reason Comments Orders Reason Comments Established Patient Follow Up Diabetic Foot Care Ingrown Toenail Reason Onset Date Comments Population Health Navigation Outreach 04/04/2022 [facility] [place] PCSA Reason Comments Established Patient Follow-Up Reason Comments Radiology NM Specialty Diagnoses / Procedures Referred By Contac t Referred To Contact MOLECULAR & FUNCTIONAL IMAGING Diagnoses Shortness of breath Procedures NM CARDIAC PERF STRESS/PHARM MYOCARDIAL SPECT MULTIPLE STUDIES Sriram Valles MD [address] [place] [address] Molecular & Functional Imaging [address] [place] [address] Referral ID Status Reason Start Date Expiration Date V isits Requested Visits Authorized [id number] Closed Auto-Generate d Referral 05/14/2022 06/13/2023 1 1 Reason Comments Follow Up Reason Comments Letter Reason Comments CARD Follow Up Annual CAD Care Teams (unrecognized sec tion and content) Team Status: Active Member Role Status Dates Dr. Kobi Adair MD Primary Care Provider Acti ve Team Status: Inactive Member Role Status Dates Dr. Kobi Adair MD Primary Care Provider Acti ve Start: September 23, 2024 End: September 25, 2024 Dr. Marco Antonio Vazquez DO Emergency Provider Active Start: September 23, 2024 End: September 25, 2024 Dr. Cory Conteh MD Admit Provider Active Start: September 23, 2024 End: September 25, 2024 Dr. Cory Conteh MD Attending Provider Active Start: September 23, 2024 End: September 25, 2024 Switch Operators Supervisor Relationship Specialty Start Date End Date Nikia Adair MD [address] [place] [address] PCP - General Family Practice 04/16/17 Clint Howe MD, [address] [place] [address] Physician Radiation Oncology 07/27/21 Switch Operators Supervisor Relationship Specialty Start Date End Date Nikia Adair MD [address] [place] [address] PCP - General Family Practice 04/16/17 Clint Howe MD, [address] [place] [address] Physician Radiation Oncology 07/27/21 Clint Howe MD, [address] [place] [address] Physician Radiation Oncology 07/28/21 Switch Operators Supervisor Relationship Specialty Start Date End Date Nikia Adair MD [address] [place] [address] PCP - General Family Practice 04/16/17 Clint Howe MD, [address] [place] [address] Physician Radiation Oncology 07/27/21 Clitn Howe MD, [address] [place] [address] Physician Radiation Oncology 07/28/21 Switch Operators Supervisor Relationship Specialty Start Date End Date Nikia Adair MD [address] [place] [address] PCP - General Family Practice 04/16/17 Clint Howe MD, [address] [place] [address] Physician Radiation Oncology 07/27/21 Clint Howe MD, [address] [place] [address] Physician Radiation Oncology 07/28/21 Switch Operators Supervisor Relationship Specialty Start Date End Date Nikia Adair MD [address] [place] [address] PCP - General Family Practice 04/16/17 Clint Howe MD, [address] [place] [address] Physician Radiation Oncology 07/27/21 Clint Howe MD, [address] [place] [address] Physician Radiation Oncology 07/28/21 Switch Operators Supervisor Relationship Specialty Start Date End Date Nikia Adair MD [address] [facility] [place] [address] PCP - General Family Practice 04/16/17 Clint Howe MD, [address] [place] [address] Physician Radiation Oncology 07/27/21 Clint Howe MD, [address] [place] [address] Physician Radiation Oncology 07/28/21 Switch Operators Supervisor Relationship Specialty Start Date End Date Nikia Adair MD [address] [facility] [place] [address] PCP - General Family Medicine 04/16/17 Clint Howe MD, [address] [place] [address] Physician Radiation Oncology 07/27/21 Clint Howe MD, [address] [place] [address] Physician Radiation Oncology 07/28/21 Switch Operators Supervisor Relationship Specialty Start Date End Date [facility] [address] [facility] [place] [address] PCP - General 04/04/22 Clint Howe MD, [address] [place] [address] Physician Radiation Oncology 07/27/21 Clint Howe MD, [address] [place] [address] Physician Radiation Oncology 07/28/21 Switch Operators Supervisor Relationship Specialty Start Date End Date [facility] [address] [facility] [place] [address] PCP - General 04/04/22 Clint Howe MD, [address] [place] [address] Physician Radiation Oncology 07/27/21 Clint Howe MD, [address] [place] [address] Physician Radiation Oncology 07/28/21 Switch Operators Supervisor Relationship Specialty Start Date End Date [facility] [address] [place] [address] PCP - General 04/04/22 Clint Howe MD, [address] [place] [address] Physician Radiation Oncology 07/27/21 Clint Howe MD, [address] [place] [address] Physician Radiation Oncology 07/28/21 Switch Operators Supervisor Relationship Specialty Start Date End Date [facility] [address] [place] [address] PCP - General 04/04/22 Clint Howe MD, [address] [place] [address] Physician Radiation Oncology 07/27/21 Clint Howe MD, [address] [place] [address] Physician Radiation Oncology 07/28/21 Switch Operators Supervisor Relationship Specialty Start Date End Date [facility] [address] [place] [address] PCP - General 04/04/22 Clint Howe MD, [address] [place] [address] Physician Radiation Oncology 07/27/21 Clint Howe MD, [address] [place] [address] Physician Radiation Oncology 07/28/21 Switch Operators Supervisor Relationship Specialty Start Date End Date [facility] [address] [place] [address] PCP - General 04/04/22 Clint Howe MD, [address] [place] [address] Physician Radiation Oncology 07/27/21 Clint Howe MD, [address] [place] [address] Physician Radiation Oncology 07/28/21 Switch Operators Supervisor Relationship Specialty Start Date End Date [facility] [address] [place] [address] PCP - General 04/04/22 Clint Howe MD [address] [place] [address] Physician Radiation Oncology 07/27/21 Clint Howe MD [address] [place] [address] Physician Radiation Oncology 07/28/21 Switch Operators Supervisor Relationship Specialty Start Date End Date [facility] [address] [facility] [place] [address] PCP - General 04/04/22 Clint Howe MD [address] [place] [address] Physician Radiation Oncology 07/27/21 Clint Howe MD [address] [place] [address] Physician Radiation Oncology 07/28/21 Switch Operators Supervisor Relationship Specialty Start Date End Date [facility] [address] [place] [address] PCP - General 04/04/22 Clint Howe MD [address] [place] [address] Physician Radiation Oncology 07/27/21 Clint Howe MD [address] [place] [address] Physician Radiation Oncology 07/28/21 Team Status: Active Member Role Status Dates Dr. Kobi Adair MD Primary Care Provider Acti ve Start: September 23, 2024 Dr. Marco Antonio Vazquez DO Emergency Provider Active Start: September 23, 2024 Dr. Cory Conteh MD Admit Provider Active Start: September 23, 2024 Dr. Cory Conteh MD Attending Provider Active Start: September 23, 2024 Team Status: Active Member Role Status Dates [facility] Primary Care Provider Active Team Status: Inactive Member Role Status Dates Dr. Darwin Kruger DO Emergency Provider Active Start: September 28, 2024 End: September 28, 2024 [facility] Primary Care Provider Active Start: September 28, 2024 End: September 28, 2024 Team Status: Inactive Member Role Status Dates [facility] Primary Care Provider Active Start: September 29, 2024 End: September 30, 2024 Dr. Wally Molina MD Emergency Provider Active Sta rt: September 29, 2024 End: September 30, 2024 Switch Operators Supervisor Relationship Specialty Start Date End Date [facility] [address] [facility] [place] [address] PCP - General 04/04/22 Clint Howe MD [address] [place], [place] [address] Physician Radiation Oncology 07/27/21 Clint Howe MD [address] [place], [place] [address] Physician Radiation Oncology 07/28/21 Team Status: Active Member Role/Relationship Status Dates [facility] Primary care physician Active Team Status: Inactive Member Role/Relationship Status Dates Dr. Kobi Adair MD Primary care physician Act tarun Start: September 23, 2024 End: September 25, 2024 Dr. Marco Antonio Vazquez DO Emergency Departm ent Physician Active Start: September 23, 2024 End: September 25, 2024 Dr. Cory Conteh MD Admitting physician Active Start: September 23, 2024 End: September 25, 2024 Dr. Cory Conteh MD Attending physician Active Start: September 23, 2024 End: September 25, 2024 Team Status: Active Member Role/Relationship Status Dates Dr. Kobi Adair MD Primary care physician Act tarun Start: September 25, 2024 End: September 25, 2024 Dr. Edu Dodson MD Attending physician Active Start: September 25, 2024 End: September 25, 2024 Dr. Cory Conteh MD Referring Provider Active Start: September 25, 2024 End: September 25, 2024 Team Status: Inactive Member Role/Relationship Status Dates Dr. Darwin Kruger DO Attending physician Active Start: September 28, 2024 End: September 28, 2024 Dr. Darwin Kruger DO Emergency Department Physician A ctive Start: September 28, 2024 End: September 28, 2024 [facility] Primary care physician Active Start : September 28, 2024 End: September 28, 2024 Team Status: Inactive Member Role/Relationship Status Dates [facility] Primary care physician Active Start : September 29, 2024 End: September 30, 2024 Dr. Wally Molina MD Attending physician Active St art: September 29, 2024 End: September 30, 2024 Dr. Wally Molina MD Emergency Department Physician Acti ve Start: September 29, 2024 End: September 30, 2024 Team Status: Inactive Member Role/Relationship Status Dates [facility] Primary care physician Active Start : December 23, 2024 End: December 23, 2024 Dr. Wally Molina MD Emergency Department Physician Active Start: December 23, 2024 End: December 23, 2024 Goals (unrecognized section and content) [...] BE BASED ON THE PRIMARY CLINICAL RECORDS. [facility] [employer] provides no warranty or guarantee of the accuracy or completeness of information in this document.
== END 2024-12-23 16:31 | disposition home or self-care (01) ==
PROVIDERS: Emergency Provider Emergency Medicine; Visit Provider Emergency Medicine
DX: R07.89 Other chest pain (principal); I11.0 Hypertensive heart disease with heart failure; I50.33 Acute on chronic diastolic (congestive) heart failure; E11.9 Type 2 diabetes mellitus without complications; S50.11XA Contusion of right forearm, initial encounter; E78.2 Mixed hyperlipidemia; I25.10 Atherosclerotic heart disease of native coronary artery without angina pectoris; Z86.718 Personal history of other venous thrombosis and embolism; Z87.891 Personal history of nicotine dependence; Z79.02 Long term (current) use of antithrombotics/antiplatelets; Z86.16 Personal history of COVID-19; X58.XXXA Exposure to other specified factors, initial encounter; Z95.1 Presence of aortocoronary bypass graft; Z95.5 Presence of coronary angioplasty implant and graft
CPT/HCPCS: 71046; 93005; 99282